=== PATIENT | male | born 1960 | race Caucasian/White ===

== ENCOUNTER → 2017-12-06 15:09 | Outpatient (CLI) | payer MEDICARE, MEDICAID, SELFPAY ==
--- NOTE | 2017-12-06 15:25 | MRI_ITS ---
MRA Head W/O Contrast INDICATION: DIZZINESSfalls,rt sided paulson's, blurred vision x 6 months COMPARISON: None TECHNIQUE: MR angiogram of the [place] of [place] and 3-D [id number] technique with 3-D reformatted images. FINDINGS: There is symmetric flow related signal and intracranial portions of the internal carotid arteries with symmetric supply to the anterior and middle cerebral arteries. Posterior circulation demonstrates normal confluence of the distal vertebral arteries to the basilar artery, basilar artery demonstrates normal flow related signal. Basilar artery gives rise to the left posterior cerebral artery, the right posterior cerebral artery is in origin. MRI/MRA Head ONLY without Contrast IMPRESSION: No evidence off aneurysm formation or large vessel occlusion. origin of the right posterior cerebral artery normal variation. at 1710 Reported and signed by: Reyna Champagne MD Electronically Signed: Reyna Champagne MD at 16:08 EDT Tel , Service support ,
--- NOTE | 2017-12-06 15:25 | MRI_ITS ---
MR Brain WO/W Contrast INDICATION: DIZZINESS, H/O TBI, RT SIDED HEAD THROBBING,falls,rt sided paulson's, blurred vision x 6 months COMPARISON: None TECHNIQUE: Multiplanar multisequence MRI examination of the brain without and with IV contrast. 10 mL of gadolinium Vistaril given intravenously.. FINDINGS: There is no evidence of restricted diffusion to suggest acute ischemia/infarction. Ventricular system is normal in size and symmetric. Cortical sulci, sylvian fissures, and basal cisterns are well seen. Andino-white matter junction is normal. Midline structures and craniocervical junction are normal. The cerebellopontine angles are normal and symmetric. There are minimal bifrontal periventricular T-2/cystic hyperintensities, compatible with minimal chronic ischemic microvascular white matter changes. Supra-and infratentorial brain parenchyma demonstrates otherwise normal signal. There is no evidence of parenchymal microhemorrhage, mass effect or midline shift, or abnormal extra-axial collection. After contrast administration, there is no abnormal parenchymal or extra-axial enhancement identified. Flow-voids of the [place] of [place] vascularity are well seen. The paranasal sinuses and mastooid air cells are clear. MRI/Brain W/WO Contrast IMPRESSION: Very minimal periventricular chronic ischemic microvascular white matter changes. Otherwise unremarkable MRI examination of the brain. at 0050 Reported and signed by: Reyna Champagne MD Electronically Signed: Reyna Champagne MD at 23:49 EDT Tel , Service support ,
== END ==
PROVIDERS: Family Provider Family Medicine; PCP Family Medicine; Visit Provider Psychiatry & Neurology Neurology
DX: R42 Dizziness and giddiness (principal); R29.6 Repeated falls
CPT/HCPCS: 70544; 70553; A9585

== ENCOUNTER → 2018-03-08 11:58 | Outpatient (CLI) | payer MEDICARE, MEDICAID, SELFPAY ==
[2018-03-08 12:42] LABS: Absolute Lymphocyte Count 1.07 X10^3/ul (0.83-4.51); Absolute Neutrophil Count 3.3 X10^3/uL (2.0-7.7); Basophil# 0.03 X10^3/uL; Basophil% 0.6 % (0-1); Eosinophil# 0.12 X10^3/uL; Eosinophils% 2.5 % (0-5); Hematocrit 44.3 % (40-54); Hemoglobin 14.3 g/dl (13.0-16.5); Lymphocyte # 1.07 X10^3/ul (4.0); Mean Corp Hgb Conc 32.3 g/gl (32-36); Mean Corpuscular Hgb 29.6 pg (27.0-32.0); Mean Corpuscular Volume 91.7 fL (80-94); Mean Platelet Vol. 10.3 fl (6.2-12.0); Monocyte# 0.34 X10^3/uL; Neutrophil # 3.29 X10^3/uL (2.7-7.7); Neutrophil % 67.7 % (47-70); Platelet Count 215 K/mm3 (150-450); RBC Distribution Width CV 14.1 % (11.6-14.6); RBC Distribution Width SD 47.5 fl (35.1-43.9); Red Blood Count 4.83 M/mm3 (4.6-6.2); White Blood Count 4.9 K/mm3 (4.4-11.0)
[2018-03-08 12:48] LABS: POSITIVE COUNT NO; POSITIVE DIFFERENTIAL NO; POSITIVE MORPHOLOGY NO
[2018-03-08 13:12] LABS: BUN 14 mg/dL (7-18); Creatinine, Serum 0.94 mg/dL (0.70-1.30); Glucose 87 mg/dL (74-106)
[2018-03-08 13:13] LABS: ALB/GLOB Ratio 1.1 RATIO (0.9-2.4); AST(SGOT) 17 U/L (15-37); Alanine Aminotransfer ALT/SGPT 20 U/L (16-61); Albumin, Serum 3.9 g/dL (3.2-5.0); Alkaline Phosphatase 125 U/L (45-117); Anion Gap 7 (5-15); BUN/Creat Ratio 14.9 RATIO (10-20); Calcium,Total 8.9 mg/dL (8.5-10.1); Chloride 107 mmol/L (98-107); EST Glomerular Filtration Rate 88 mL/min (>60); Est Glom Filt Rate - Afr Amer 106 mL/min (>60); Globulin 3.7 g/dL (2.2-4.2); PSA,Total - Annual Screen 0.09 ng/mL (0.00-4.00); Potassium 4.6 mmol/L (3.5-5.1); Protein, Total 7.6 g/dL (6.4-8.2); Sodium Level 138 mmol/L (136-145); Thyroid Stim Hormone (TSH) 1.84 uIU/mL (0.358-3.74)
[2018-03-09 11:20] LABS: Hep C Antibodies <0.1 s/co ratio (0.0-0.9)
== END ==
PROVIDERS: Visit Provider Family Medicine Geriatric Medicine
DX: Z12.5 Encounter for screening for malignant neoplasm of prostate (principal); Z13.89 Encounter for screening for other disorder; R53.83 Other fatigue
CPT/HCPCS: 36415; 80053; 84153; 84443; 85025; 86803; G0103

== ENCOUNTER → 2018-03-08 17:20 | Outpatient (CLI) | payer MEDICARE, MEDICAID, SELFPAY ==
--- NOTE | 2018-03-08 15:00 | CYSPIN_PTH ---
PATIENT: ELOINA TOVAR LOC: [facility] U#:[id number] AGE/SX: 65/M ROOM: RE03/08/[address]: AFVIAN Benjamin : 1960 BED: DIS: SPEC #: [id number] RECD: 03/09/18 08:39 STATUS: GIOVANNI NUHA #: [id number] TAQUERIA: 03/08/18 15:[address]: Bonnie Sheldon NP DEPT: CYTOLOGY RECD BY: Dionisio Duarte Tissues: Urine Procedures: Pap Stain (control) Special Stain Group II Cytospin Fluid HEADER OPERATION: Not noted PRE-OP DIAGNOSIS: Hematuria TISSUE SUBMITTED: Urine for cytology DIAGNOSIS CYTOLOGY Urine for cytology (cytospin): Negative for malignant cells. AM:jennifer 03/12/18 CYTOLOGY STUDY Slides are reviewed. CYTOLOGY GROSS Received is 75 ml of cloudy marlon fluid labeled with the patient's name and and designated per the requisition as urine. Submitted for cytology preparation. / JULITO:jennifer 03/09/18 TC:5 CPT: 50277
[2018-03-08 17:23] LABS: Cytology, Body Fluid / CSF SEE PATHOLOGY REPORT
== END ==
PROVIDERS: Visit Provider Nurse Practitioner Adult Health
DX: R31.9 Hematuria, unspecified (principal); Z12.5 Encounter for screening for malignant neoplasm of prostate; Z13.89 Encounter for screening for other disorder; R53.83 Other fatigue
CPT/HCPCS: 36415; 80053; 84153; 84443; 85025; 86803; 87086; 87088; 88108; 88313; G0103

== ENCOUNTER → 2018-03-12 10:07 | Outpatient (CLI) | payer MEDICARE, MEDICAID, SELFPAY ==
--- NOTE | 2018-03-12 10:11 | US_ITS ---
STUDY: RENAL ULTRASOUND - COMPLETE REASON FOR EXAM: Male, 57 years old. Urinary retention. TECHNIQUE: Ultrasound evaluation of the kidneys was performed with real-time and static hay-scale imaging. COMPARISON: Abdominal ultrasound, September 28, 2015. FINDINGS: RIGHT KIDNEY: Normal location of the right kidney, which is normal in size. The right kidney measures 10.9 cm. There is a normal cortex of the right kidney. The renal cortex measures 1.9 cm. There is a 4.2 x 3.1 x 3.5 cm upper pole simple cyst. There are no right renal calculi. There is no right hydronephrosis. DISTAL RIGHT URETER: There is non-visualization of the distal right ureter. There is no demonstrated right ureterovesical junction calculus. There is a visualized right ureteral jet. LEFT KIDNEY: Normal location of the left kidney, which is normal in size. The left kidney measures 10.8 cm. There is a normal cortex of the left kidney. The renal cortex measures 1.4 cm. There is a 1.1 x 1.1 x 0.9 cm exophytic cyst off the lower pole. There are no left renal calculi. There is no left hydronephrosis. DISTAL LEFT URETER: There is non-visualization of the distal left ureter. There is no demonstrated left ureterovesical junction calculus. There is a visualized left ureteral jet. AORTA: There is no elongation or tortuosity of the abdominal aorta. Aorta measures: Proximal cm. Middle cm. Distal cm. Aorta measure transversely: Proximal cm. Middle cm. Distal cm. There is no demonstrated aneurysm.. I.V.C.: The IVC is patent. BLADDER: The incompletely distended urinary bladder has a volume of 76 ml. The empty urinary bladder has a volume of 13 ml. There is a normal wall thickness of the distended urinary bladder. There is no demonstrated mass within the urinary bladder. There are no demonstrated bladder calculi. US/Kidney and Bladder IMPRESSION: [place] numbering is stable bilateral renal cysts without other evidence of renal or urinary bladder abnormality. Electronically Signed: Gerber Camp DO at 15:53 EDT Tel [phone], Service support ,
== END ==
PROVIDERS: Visit Provider Nurse Practitioner Adult Health
DX: R33.9 Retention of urine, unspecified (principal)
CPT/HCPCS: 76770

== ENCOUNTER → 2018-03-13 11:08 | Outpatient (CLI) | payer MEDICARE, MEDICAID, SELFPAY ==
--- NOTE | 2018-03-13 09:40 | LES_PTH ---
PATIENT: ELOINA TOVAR LOC: [facility] U#:[id number] AGE/SX: 65/M ROOM: RE03/13/[address]: Dr. Balwinder Pruitt MD : 1960 BED: DIS: SPEC #: [id number] RECD: 03/13/18 16:11 STATUS: GIOVANNI NUHA #: [id number] TAQUERIA: 03/13/18 09:[address]: Balwinder Pruitt Chi DEPT: SURGICAL PATHOLOGY RECD BY: Patrick Anthony Tissues: A - Skin of upper extremity and shoulder B - Skin of back, NOS Procedures: Surgery Specimen Level IV HEADER OPERATION: Biopsy PRE-OP DIAGNOSIS: Skin lesion, skin changes TISSUE SUBMITTED: A. Right shoulder, B. Right lower back MICROSCOPIC DIAGNOSIS A. Skin lesion of right shoulder, shave biopsy: Seborrheic keratosis, mildly inflamed. B. Skin lesion of right lower back, shave biopsy: Seborrheic keratosis, inflamed. AM:lizzy 03/15/18 MICROSCOPIC DESCRIPTION Slides are reviewed. GROSS DESCRIPTION A. Received in fixative is one container labeled with the patient's name and designated not further designated. The specimen consists of a piece of beverly-white skin measuring 1.4 x 0.6 x 0.1 cm. The skin surface shows a raised beverly-brown lesion measuring 1 x 0.5 cm. The specimen is inked and submitted entirely in 1 cassette. It will be serially sectioned at the time of embedding. B. Received in fixative is one container labeled with the patient's name and designated not further designated. The specimen consists of an irregular piece of beverly-white skin measuring 1.5 x 1 x 0.2 cm. The skin surface shows a brown lesion measuring 1.2 x 1 cm. The specimen is inked and submitted in 1 cassette. It will be serially sectioned at the time of embedding. JULITO:lizzy 03/14/18 TC:5 CPT: 66776 x2
== END ==
PROVIDERS: Visit Provider Family Medicine Geriatric Medicine
DX: L98.9 Disorder of the skin and subcutaneous tissue, unspecified (principal)
CPT/HCPCS: 88305

== ENCOUNTER → 2018-03-15 16:09 | Outpatient (CLI) | payer MEDICARE, SELFPAY ==
[2018-03-15 16:17] LABS: Bacteria 0 SEEN /hpf (None Seen)
[2018-03-15 17:21] LABS: Color, Urine Yellow (Yellow); Glucose, Dipstick Normal (Normal); Ketone-Dipstick 5 mg/dl (Negative); Leukocyte Esterase-Dipstick 25 /ul (Negative); Nitrite-Dipstick Negative (Negative); Occult Blood-Urine 50 /ul (Negative); Protein-Dipstick 15 mg/dl (Negative); Urine Bilirubin Dipstick Negative (Negative); Urine Clarity Clear (Clear); Urine Urobilinogen 4 mg/dl (Normal)
[2018-03-15 17:48] LABS: Red Blood Cells-Urine 5-10 SEEN /hpf (0-5); White Blood Cells 0-5 SEEN /hpf (0-5)
[2018-03-15 17:49] LABS: Mucous, Urine 1+ /hpf (<or=2+); Squamous Epithelial Cells - UA 0-5 SEEN /hpf (0-5)
== END ==
PROVIDERS: Family Provider Family Medicine Geriatric Medicine; PCP Family Medicine Geriatric Medicine; Visit Provider Nurse Practitioner Adult Health
DX: R31.9 Hematuria, unspecified (principal); Z12.5 Encounter for screening for malignant neoplasm of prostate
CPT/HCPCS: 81001

== ENCOUNTER → 2018-04-12 18:55 | Outpatient (CLI) | payer MEDICARE, MEDICAID, SELFPAY ==
--- NOTE | 2018-04-12 | FLU_PTH ---
PATIENT: ELOINA TOVAR LOC: [facility] U#:[id number] AGE/SX: 65/M ROOM: RE04/12/[address]: Dr. Eusebio Gonzales MD : 1960 BED: DIS: SPEC #: [id number] RECD: 04/12/18 16:00 STATUS: GIOVANNI NUHA #: [id number] TAQUERIA: 04/12/18 00:[address]: Eusebio Gonzales DEPT: CYTOLOGY RECD BY: Pamela Santos ENTERED: 04/13/18 08:34 SP TYPE: Fluid OTHR DR: Dr. Balwinder Pruitt MD Tissues: Urine Procedures: Pap Stain (control) Special Stain Group II Surgery Specimen Level IV Cytospin Fluid HEADER OPERATION: Not noted PRE-OP DIAGNOSIS: Hematuria TISSUE SUBMITTED: Urine for cytology DIAGNOSIS CYTOLOGY Urine for cytology (cytospin): Negative for malignant cells. JULITO:jennifer 04/16/18 CYTOLOGY STUDY Slides are reviewed. The specimen consists of benign squamous cells, urothelial cells, inflammatory cells, red blood cells and crystals. CYTOLOGY GROSS Received is 40 ml of clear marlon fluid labeled with the patient's name and and designated per the requisition as urine. Submitted for cytology preparation. / MORENA:logan 04/13/18 TC:5 CPT: 13841
[2018-04-12 18:57] LABS: Cytology, Body Fluid / CSF SEE PATHOLOGY REPORT
== END ==
PROVIDERS: Visit Provider Urology
DX: R31.9 Hematuria, unspecified (principal)
CPT/HCPCS: 88108; 88305; 88313

== ENCOUNTER → 2018-06-11 11:19 | Outpatient (CLI) | payer MEDICARE, SELFPAY ==
[2018-06-11 12:17] LABS: Absolute Lymphocyte Count 0.87 X10^3/ul (0.83-4.51); Absolute Neutrophil Count 3.2 X10^3/uL (2.0-7.7); Basophil# 0.06 X10^3/uL; Basophil% 1.3 % (0-1); Differential Indicated SCAN CRITERIA MET; Eosinophils% 2.1 % (0-5); Hematocrit 43.6 % (40-54); Hemoglobin 14.2 g/dl (13.0-16.5); Lymphocyte # 0.87 X10^3/ul (4.0); Lymphocyte % 18.6 % (19-41); Mean Corp Hgb Conc 32.6 g/gl (32-36); Mean Corpuscular Hgb 30.5 pg (27.0-32.0); Mean Corpuscular Volume 93.6 fL (80-94); Mean Platelet Vol. 10.4 fl (6.2-12.0); Monocyte# 0.41 X10^3/uL; Monocyte% 8.8 % (0-10); Neutrophil # 3.24 X10^3/uL (2.7-7.7); Neutrophil % 69.2 % (47-70); POSITIVE COUNT NO; POSITIVE DIFFERENTIAL NO; POSITIVE MORPHOLOGY YES; Platelet Count 221 K/mm3 (150-450); RBC Distribution Width CV 14.2 % (11.6-14.6); RBC Distribution Width SD 47.5 fl (35.1-43.9); Red Blood Count 4.66 M/mm3 (4.6-6.2); White Blood Count 4.7 K/mm3 (4.4-11.0)
[2018-06-11 12:51] LABS: AST(SGOT) 22 U/L (15-37); Alanine Aminotransfer ALT/SGPT 21 U/L (16-61); Albumin, Serum 3.6 g/dL (3.2-5.0); Alkaline Phosphatase 117 U/L (45-117); Anion Gap 7 (5-15); BUN 13 mg/dL (7-18); Calcium,Total 8.8 mg/dL (8.5-10.1); Chloride 105 mmol/L (98-107); Creatinine, Serum 0.86 mg/dL (0.70-1.30); EST Glomerular Filtration Rate 96 mL/min (>60); Est Glom Filt Rate - Afr Amer 116 mL/min (>60); Globulin 3.7 g/dL (2.2-4.2); Glucose 81 mg/dL (74-106); Potassium 4.3 mmol/L (3.5-5.1); Protein, Total 7.3 g/dL (6.4-8.2); Sodium Level 141 mmol/L (136-145)
[2018-06-13 09:11] LABS: Trileptal-Oxcarbazepine 7 ug/mL (10-35)
== END ==
PROVIDERS: Family Provider Family Medicine Geriatric Medicine; PCP Family Medicine Geriatric Medicine; Visit Provider Psychiatry & Neurology Neurology
DX: Z79.899 Other long term (current) drug therapy (principal)
CPT/HCPCS: 36415; 80053; 82542; 85025

== ENCOUNTER 2019-03-07 16:01 | Emergency (ER) | payer MEDICARE, MEDICAID, SELFPAY ==
[2019-03-07 16:02] VITALS: BP 138/73; PULSE 58; RESP 18; TEMP 37.1; O2SAT 99; BMI 39.6
--- NOTE | 2019-03-07 16:20 | ED.VISSUMM ---
- ER Visit Summary Date of Service: 03/07/19 Chief Complaint: Dog bite History of Present Illness: The patient is a [address] Pruitt. He reports just prior to coming emergency department he was breaking up a fight between his dog and another of the family dogs. He was bit to the right forearm. States the dog's immunizations are up-to-date. His tetanus is up-to-date. He is left-hand dominant. Patient combines of an aching pain is 7-10 with movement and 3 out of 10 at rest. He denies any paresthesias distally. He denies any other injuries. Review of systems is negative. Physical Examination: Vitals: Stable. Afebrile. General: Well-nourished and well-developed. Head: Normocephalic atraumatic. Neck: Supple, no lymphadenopathy. No JVD. Nontender. Cardiovascular: Regular rate and rhythm. No murmurs. Respiratory: No respiratory distress. Clear to auscultation bilaterally. Abdominal: Soft, nontender, nondistended, normal bowel sounds. No guarding, rebound, or peritoneal signs. Back: Nontender. Extremities: 1 cm laceration on both the volar and dorsal surface of his distal forearm with mild surrounding soft tissue swelling. There are also multiple puncture wounds. There is no active bleeding. He is neurovascularly intact distally. Skin: Normal color, no rash. Neurologic: Alert and oriented ?3. Cranial nerves II through XII are intact. Normal strength and sensation. Psych: Normal affect. Test Results: Clinical Impression(s) from Imaging Studies Forearm X-Ray 03/07/19 16:25 IMPRESSION: Local cortical puncture of the distal radius consistent with dog bite. No foreign body demonstrated. Electronically Signed: Janene Perez MD at 16:55 EDT Tel , Service support , Emergency Department Courseand Treatment: Patient is penicillin allergic. He was given doxycycline and [place] p.o. He had his wound cleansed and a dressing was placed. He was placed in a volar splint. Treatment Plan: Patient will be discharged on doxycycline. Instructed use Tylenol and/or ibuprofen for pain. Follow-up with Dr. Belle in 2 days for a wound check. Return to the emergency department for any worsening symptoms. Disposition: To home in improved and stable condition. Impression: 1. Dog bite right forearm with bony involvement. 2. Volar splint, fabricated. This note was generated with [employer] dictation software. It may contain incorrect words, spelling, and punctuation that were not noted in review of the chart prior to signing ED Disposition - Plan for ED Patient: Instructions: Dog Bite Prescriptions: Doxycycline 100 mg PO BID #20 capsule Hydrocodone Bitart/Apap 5-325 [[place] 5MG-325MG] 1 tablet PO Q4H PRN PRN 2 Days #10 tablet PRN Reason: Pain Referrals: Nimesh Belle DO [STAFF PHYSICIAN] - 2 Days for wound check
--- NOTE | 2019-03-07 16:22 | ED.RN ---
pt refusing to fill out [facility] bite report sheet.
--- NOTE | 2019-03-07 16:25 | RAD_ITS ---
STUDY: X-RAY - RIGHT RADIUS AND ULNA REASON FOR EXAM: Male, 58 years old. Dog bite to right wrist/forearm. TECHNIQUE: 2 view(s) of the forearm. COMPARISON: None. FINDINGS: There is a 9 x 6 mm depressed cortical fracture consistent with puncture identified in the distal radial shaft anteromedially. There is no complete fracture through the radius. Remaining bony structures are unremarkable. There is moderate soft tissue swelling about the distal forearm. There is trace soft tissue gas in the deep soft tissues proximal to the puncture site. There is no evidence of foreign body consistent with tooth. RAD/Forearm 2 Views IMPRESSION: Local cortical puncture of the distal radius consistent with dog bite. No foreign body demonstrated. Electronically Signed: Janene Perez MD at 16:55 EDT Tel , Service support ,
[2019-03-07] MEDS: HYDROcodone Bitartrate/Apap 5/325 Tablet PO (16:34)
[2019-03-07] MEDS: Doxycycline 100 MG CAPSULE PO (16:34)
[2019-03-07 18:18] VITALS: BP 120/89; PULSE 76; RESP 18; TEMP 33.8
== END 2019-03-07 18:21 | disposition home or self-care (01) ==
PROVIDERS: Emergency Provider Emergency Medicine; Family Provider Family Medicine Geriatric Medicine; PCP Family Medicine Geriatric Medicine
DX: S51.851A Open bite of right forearm, initial encounter (principal); W54.0XXA Bitten by dog, initial encounter; Y93.89 Activity, other specified; Y92.9 Unspecified place or not applicable; J44.9 Chronic obstructive pulmonary disease, unspecified; G40.909 Epilepsy, unspecified, not intractable, without status epilepticus; Z79.899 Other long term (current) drug therapy
CPT/HCPCS: 29125; 73090; 99283

== ENCOUNTER → 2019-03-18 11:08 | Outpatient (CLI) | payer MEDICARE, MEDICAID, SELFPAY ==
[2019-03-07 16:02] VITALS: BMI 39.6
--- NOTE | 2019-03-18 11:11 | RAD_ITS ---
STUDY: X-RAY - UNILATERAL RIBS ( RIGHT ) WITH CHEST REASON FOR EXAM: Male, 58 years old. Fall. Right anterior lower rib pain wraps around side. TECHNIQUE - RIBS: 3 view(s) of the ribs. TECHNIQUE - CHEST: Single PA view. COMPARISON: AP portable chest 11/24/2015. No prior rib series for comparison. FINDINGS - RIBS: Acute fracture of the right anterior sixth rib. FINDINGS - CHEST: Radiopaque linear densities in the left upper quadrant of the abdomen may be embolic material from prior endovascular procedure. This was present previously and unchanged. Mild pulmonary hypoinflation. The lungs are clear. There is no demonstrated pleural abnormality. Normal size heart. Normal mediastinum and leisa. Normal visualized pulmonary arteries. Normal visualized aortic arch and descending thoracic aorta. Normal visualized thoracic spine. Acute fracture of the right anterior sixth is not obvious. The clavicles and shoulders are within normal limits. There is no demonstrated abnormality of the visualized soft tissue structures of the upper abdomen. RAD/Ribs Uni Min 3V w/PA Chest IMPRESSION: RIBS: Acute fracture of the right anterior sixth rib. CHEST: No acute cardiopulmonary pathology and unchanged since 11/24/2015. Electronically Signed: Kash Griffith MD at 13:10 EDT , Service support ,
== END ==
LOC: RAD 11:10
PROVIDERS: Family Provider Family Medicine Geriatric Medicine; PCP Family Medicine Geriatric Medicine; Referring Provider Family Medicine Geriatric Medicine; Visit Provider Family Medicine Geriatric Medicine
DX: S22.31XA Fracture of one rib, right side, initial encounter for closed fracture (principal); X58.XXXA Exposure to other specified factors, initial encounter
CPT/HCPCS: 71101

== ENCOUNTER 2019-04-02 14:29 | Inpatient (IN) | payer MEDICARE, MEDICAID, SELFPAY ==
[2019-04-02] VITALS (8 sets, daily range): BP systolic 129–171; BP diastolic 79–105; PULSE 49–64; RESP 14–18; TEMP 36.3–36.7; O2SAT 94–97; BMI 40.6; BMI 40.4; BMI 39.4; BMI 39.5
--- NOTE | 2019-04-02 15:44 | ED.DCSUM_ITS ---
History of Present Illness Chief Complaint: Wound Detail of Chief Complaint: Right leg wound Informant: Patient Onset: - - 2 weeks Context: Gradual Onset Current Severity: Moderate Maximum Severity: Moderate Narrative: Patient was seen in the ED on March 07 with a dog bite to the right forearm. Patient reports that 5 or 6 days later his dog bit him in the back of the right lower leg when he was trying to separate 2 dogs were fighting. Patient was seen by his PCP the following day and placed on Augmentin. He has an allergy to penicillin and broke out in a rash. He was then switched to clindamycin and doxycycline. He finished a 10-day course of antibiotics 2 days ago. Patient was sent to the wound center today. He was told that the wound is infected and he needs to be admitted for IV antibiotics and surgery. - Past Medical History (1) Bronchial asthma Status: Chronic (2) Chronic pain syndrome Status: Chronic (3) DM type 2 (diabetes mellitus, type 2) Status: Chronic (4) Epilepsy undetermined as to focal or generalized, intractable Status: Chronic Comment: sees Dr. Guillen (5) Migraine headache Status: Chronic (6) Personal hx-rectal/anal malignancy Status: Chronic Past Medical History - Allergies and Home Meds Allergies/Adverse Reactions: Allergies meperidine HCl [From Demerol] Allergy (Verified 04/02/19 14:35) Unknown Milk Containing Products Allergy (Verified 04/02/19 14:35) Anaphylaxis PER PT penicillin G Allergy (Verified 04/02/19 14:35) Hives potassium Adverse Reaction (Verified 04/02/19 14:35) Other Prior records reviewed: Yes Past Medical History: - - Reviewed Surgical History: noncontributory, - - Bariatric surgery Smoking Status: Current every day smoker - Family History Maternal Family History: Reports: No pertinent history Paternal Family History: Reports: No pertinent history Review of Systems General: Denies: Chills, Fever Cardiovascular: Denies: Chest pain, Palpitations Respiratory: Denies: Dyspnea, Cough Gastrointestinal: Denies: Abdominal pain, Nausea, Vomiting Musculoskeletal: Reports: Myalgias Skin: Reports: Wounds Physical Exam Vital Signs/Narrative: Vital Signs Temp Pulse Resp BP Pulse Ox 04/02/19 14:30 97.9 F 64 15 154/99 H 95 Extremities: - - Patient has a 3 x 3 cm ulcerated wound to the medial proximal right calf. There is a 9 x 9 cm area of induration around the wound. There is foul smell and slight discharge noted from the central wound. Diagnostic/Tx/Re-eval 04/02/19 16:14 Tibia & Fibula 2 Views [RAD] Stat Laboratory Results 04/02/19 04/02/19 16:00 16:00 WBC 6.4 RBC 4.43 L Hgb 13.7 Hct 41.9 MCV 94.6 H MCH 30.9 MCHC 32.7 RDW Std Deviation 49.6 H RDW Coeff of [place] 14.4 Plt Count 226 MPV 10.3 Immature Gran % (Auto) 0.300 Neut % (Auto) 70.0 Lymph % (Auto) 17.4 L [place] % (Auto) 9.3 Eos % (Auto) 2.2 Baso % (Auto) 0.8 Absolute Neuts (auto) 4.5 Absolute Lymphs (auto) 1.12 Absolute Nucleated RBC 0.00 Nucleated RBC % 0 Sodium 139 Potassium 4.6 Chloride 109 H Carbon Dioxide 28.0 Anion Gap 2 L BUN 14 Creatinine 0.86 Estim Creat Clear Calc 88.37 Est GFR (MDRD) Af Amer 117 Est GFR (MDRD) Non-Af 97 BUN/Creatinine Ratio 16.3 Glucose 84 Calcium 8.7 - Medical Decision Making Patient was given IV vancomycin. Leg x-ray per my review shows superficial injury with no deep tissue air. Wound and blood cultures were sent. I spoke with Dr. Reardon who will be able to see the patient in consult. I will speak with hospitalist regarding admission. ED Disposition - Plan for ED Patient: Disposition: Acute Care Hospital [facility] Diagnosis: Traumatic open wound of right lower leg with infection
[2019-04-02] MEDS: 0.9% Normal Saline 1,000 ML 150 ML IV (16:09)
[2019-04-02 16:43] LABS: Anion Gap 2 (5-15); BUN 14 mg/dL (7-18); BUN/Creat Ratio 16.3 RATIO (10-20); Calcium,Total 8.7 mg/dL (8.5-10.1); Chloride 109 mmol/L (98-107); Creatinine, Serum 0.86 mg/dL (0.70-1.30); EST Glomerular Filtration Rate 97 mL/min (>60); Est Glom Filt Rate - Afr Amer 117 mL/min (>60); Estimated Creatinine Clearance 88.37 ml/min; Glucose 84 mg/dL (74-106); Potassium 4.6 mmol/L (3.5-5.1); Sodium Level 139 mmol/L (136-145)
[2019-04-02 16:52] LABS: Absolute Lymphocyte Count 1.12 X10^3/uL (0.83-4.51); Absolute Neutrophil Count 4.5 X10^3/uL (2.0-7.7); Basophil# 0.05 X10^3/uL; Basophil% 0.8 % (0-1); Eosinophil# 0.14 X10^3/uL; Eosinophils% 2.2 % (0-5); Hematocrit 41.9 % (40-54); Hemoglobin 13.7 g/dL (13.0-16.5); Lymphocyte # 1.12 X10^3/ul (4.0); Lymphocyte % 17.4 % (19-41); Mean Corp Hgb Conc 32.7 g/dL (32-36); Mean Corpuscular Hgb 30.9 pg (27.0-32.0); Mean Corpuscular Volume 94.6 fL (80-94); Mean Platelet Vol. 10.3 fl (6.2-12.0); Monocyte% 9.3 % (0-10); NRBC Flagged by Analyzer 0 % (0-5); Neutrophil # 4.49 X10^3/uL (2.7-7.7); Platelet Count 226 K/mm3 (150-450); RBC Distribution Width CV 14.4 % (11.6-14.6); RBC Distribution Width SD 49.6 fl (35.1-43.9); Red Blood Count 4.43 M/mm3 (4.6-6.2); White Blood Count 6.4 K/mm3 (4.4-11.0)
--- NOTE | 2019-04-02 17:00 | RAD_ITS ---
STUDY: X-RAY - RIGHT TIBIA AND FIBULA REASON FOR EXAM: Male, 59 years old. Dog bite. TECHNIQUE: Frontal and lateral view(s) of the tibia and fibula were obtained. COMPARISON: None. FINDINGS: Normal visualized tibia. Normal visualized fibula. There is no demonstrated acute fracture. There is posterior medial soft tissue injury. RAD/Tibia & Fibula 2 Views IMPRESSION: Soft tissue injury. No fracture. No radiopaque foreign body Electronically Signed: Vic Lnae MD at 17:33 EDT , Service support ,
--- NOTE | 2019-04-02 17:14 | HP.PCM_ITS ---
History of Present Illness Date of Admission: 04/02/19 Chief Complaint: redness and pain in RLE due to dog bite The patient is a 59 year old M with an extensive past medical history as listed. He was admitted through the ED on 04/02/2019 with a complaint of a dog bite and ulceration on his right lower extremity. Patient is about 2 weeks ago his dog bit him at the back of his right lower leg as he was trying to separate 2 dogs fighting. Once he is PCP and was put on Augmentin. However due to allergy to p enicillin, he broke out in a rash and this was discontinued. He was subsequently placed on clindamycin and doxycycline and finished a 10-day course of antibiotics 2 days ago. However he noticed that the ulceration was getting worse and was smelling very effectively went to the wound care center today and was told that he needed possible debridement and IV antibiotics and so was sent to the ED. Patient denies any fever or chills but admits to generally not feeling well for the past few days. He denies any cough or chest pain, palpitations, dizziness, abdominal pain, diarrhea vomiting. Review of systems otherwise negative. Vitals in the ED with stable and chemistry was essentially unremarkable. CBC showed no leukocytosis. He has been admitted to be managed for cellulitis of the left lower extremity, failed outpatient therapy. [] Past Medical History Past Medical History (Chronic Problems): Chronic Problems Personal hx-rectal/anal malignancy (Chronic) Esophageal reflux (Chronic) Epilepsy undetermined as to focal or generalized, intractable (Chronic) sees Dr. Guillen DM type 2 (diabetes mellitus, type 2) (Chronic) Chronic pain syndrome (Chronic) Post traumatic stress disorder (PTSD) (Chronic) multiple abdominal surgeries (Chronic) Migraine headache (Chronic) Bronchial asthma (Chronic) Bariatric surgery status (Chronic) Allergies meperidine HCl [From Demerol] Allergy (Verified 04/02/19 14:35) Unknown Milk Containing Products Allergy (Verified 04/02/19 14:35) Anaphylaxis PER PT penicillin G Allergy (Verified 04/02/19 14:35) Hives potassium Adverse Reaction (Verified 04/02/19 14:35) Other Home Medications: Ambulatory Orders Medication Instructions Recorded Budesonide Inhaler 180 mcg 2 puff INHALATION BID 02/14/15 [Pulmicort Inhaler 180 mcg] Salmeterol [Serevent Diskus] 2 puff INHALATION DAILY 02/14/15 Albuterol IH (ProAir) [Proair Hfa 1 - 2 puff INHALATION Q4H PRN PRN 04/02/19 (SP)Vent Pts] Escitalopram Oxalate [Lexapro] 20 mg PO DAILY 04/02/19 Oxcarbazepine 300 mg PO BID 04/02/19 Oxcarbazepine [Trileptal] 150 mg PO BID 04/02/19 Surgical History: noncontributory, - - Bariatric surgery Psychiatric History: No pertinent psych hx Lives: With Family Smoking Status: Never smoker Tobacco Use: Non-smoker Alcohol: None - quit drinking in 1999 - *Family History Maternal History Items: No pertinent history Paternal History Items: No pertinent history Review of Systems Constitutional: Reports: Malaise. Denies: Chills, Fever, Weight Change Eyes: Denies: Blurred vision HEENT: Denies: Head Aches, Sinus Congestion, Sinus Drainage Cardiovascular: Denies: Chest Pain, Chest Pressure, Heaviness, Light Headedness, Orthopnea, Palpitations Respiratory: Denies: Cough, Shortness of breath at rest, Sputum production Gastrointestinal: Denies: Abdominal Pain, Nausea, Vomiting Genitourinary: Denies: Dysuria Musculoskeletal: Reports: Leg Pain - right leg Skin: Reports: Rash, Wounds - right leg wound. Neurological: Denies: Numbness, Tingling, Focal weakness Psychiatric: Denies: Anxiety, Depression, Homicidal Ideations, Suicidal Ideations Hematologic/ Lymphatic: Denies: Easy Bruising, Easy Bleeding VTE Information - Inpt Only VTE Present on Admission: No VTE Pharm Prophylaxis ordered?: Yes Patient Problems: Active and Suspected Problems Traumatic open wound of right lower leg with infection (Acute) Dog bite of calf (Acute) - Physical Exam General: Alert, Oriented x3, Cooperative, No apparent distress HEENT: Atraumatic, PERRLA, EOMI, Normocephalic Oral: Moist Mucosa Neck: Supple, No JVD, Negative Carotid Bruits Lungs: Clear to auscultation, Normal air movement Cardiovascular: Regular rate, No murmurs Abdomen: Bowel Sounds Present, Soft, Non Tender Extremities: No clubbing, No cyanosis, No edema, Capillary Refill Less than 3 Seconds Skin: - - mild papular rash over UEs, which is resolving-due to penicillin allergy Musculoskeletal: - - RLE mildly swollen, tende, has ~ 4x5cm ulceration, with greenish slough in the floor, and surrounding erythema and tenderness Lymphatic: No Cervical, Supraclavicular, or Inguinal Adenopathy Neurological: Cranial nerves II-XII grossly intact, Neuro grossly intact, Motor Exam 5/5 strength throughout Psych/Mental Status: Normal Affect, Appropriate, Alert and oriented to time, place, person, mood and affect Vital Signs Temp Pulse Resp BP Pulse Ox 97.4 F L 59 L 18 140/94 H 97 04/02/19 17:02 04/02/19 17:02 04/02/19 17:02 04/02/19 17:02 04/02/19 17:02 Oxygen Delivery Method Room Air Weight: 265 lb 14.04 oz Body Mass Index (BMI) 40.4 Finger Stick Blood Glucose 77 Laboratory Tests Past 24 Hrs 04/02/19 04/02/19 16:00 16:00 WBC 6.4 RBC 4.43 L Hgb 13.7 Hct 41.9 MCV 94.6 H MCH 30.9 MCHC 32.7 RDW Std Deviation 49.6 H RDW Coeff of Wenceslao 14.4 Plt Count 226 MPV 10.3 Immature Gran % (Auto) 0.300 Neut % (Auto) 70.0 Lymph % (Auto) 17.[address] [place] % (Auto) 9.3 Eos % (Auto) 2.2 Baso % (Auto) 0.8 Absolute Neuts (auto) 4.5 Absolute Lymphs (auto) 1.12 Absolute Nucleated RBC 0.00 Nucleated RBC % 0 Sodium 139 Potassium 4.6 Chloride 109 H Carbon Dioxide 28.0 Anion Gap 2 L BUN 14 Creatinine 0.86 Estim Creat Clear Calc 88.37 Est GFR (MDRD) Af Amer 117 Est GFR (MDRD) Non-Af 97 BUN/Creatinine Ratio 16.3 Glucose 84 Calcium 8.7 Assessment/Plan All Active Problems Traumatic open wound of right lower leg with infection (Acute) Dog bite of calf (Acute) 1. Cellulitis of the RLE with infected ulcer due to dog bite * failed outpatient therapy * admit to [facility] surg * failed to respond to clindamycin and doxycycline on outpatient basis, developed a rash in response to penicillin * received vancomycin in ED; will start on IV meropenem. * get blood cultures and wound cultures * wound care consult * consult plastic surgery * duplex of RLE o/a of swelling of RLE * 2. COPD: Pulmicort and salmeterol as well as albuterol. 3. Depression: On Lexapro and Trileptal. DVT prophylaxis: Lovenox Code Visit Inpatient E&M: 92275 Init Hosp L3
[2019-04-02] MEDS: 0.9% Normal Saline 1,000 ML 125 ML IV (19:44)
[2019-04-02] MEDS: Albuterol 2.5 MG/3 ML VIAL.NEB. INHALATION (19:58)
[2019-04-02] MEDS: Budesonide Respules 0.5 MG/2 ML AMPUL.NEB. INHALATION (19:58)
[2019-04-02] MEDS: OXcarbazepine 300 MG Tablet PO (22:11)
[2019-04-02] MEDS: OXcarbazepine 150 MG Tablet PO (22:11)
[2019-04-03] VITALS (12 sets, daily range): BP systolic 97–143; BP diastolic 68–89; PULSE 53–78; RESP 16–20; TEMP 36.1–37.4; O2SAT 93–98; BMI 39.4
[2019-04-03] MEDS: 0.9% Normal Saline 1,000 ML 125 ML IV (03:01)
[2019-04-03 05:30] LABS: Absolute Lymphocyte Count 0.86 X10^3/uL (0.83-4.51); Absolute Neutrophil Count 2.9 X10^3/uL (2.0-7.7); Basophil# 0.03 X10^3/uL; Basophil% 0.7 % (0-1); Eosinophil# 0.13 X10^3/uL; Hematocrit 39.3 % (40-54); Hemoglobin 12.4 g/dL (13.0-16.5); Lymphocyte # 0.86 X10^3/ul (4.0); Lymphocyte % 19.6 % (19-41); Mean Corp Hgb Conc 31.6 g/dL (32-36); Mean Corpuscular Hgb 30.4 pg (27.0-32.0); Mean Corpuscular Volume 96.3 fL (80-94); Mean Platelet Vol. 9.9 fl (6.2-12.0); Monocyte# 0.44 X10^3/uL; NRBC Flagged by Analyzer 0 % (0-5); Neutrophil # 2.92 X10^3/uL (2.7-7.7); Neutrophil % 66.5 % (47-70); Platelet Count 196 K/mm3 (150-450); RBC Distribution Width CV 14.3 % (11.6-14.6); RBC Distribution Width SD 50.5 fl (35.1-43.9); Red Blood Count 4.08 M/mm3 (4.6-6.2); White Blood Count 4.4 K/mm3 (4.4-11.0)
[2019-04-03 05:51] LABS: Anion Gap 7 (5-15); BUN 9 mg/dL (7-18); BUN/Creat Ratio 11.7 RATIO (10-20); Calcium,Total 8.2 mg/dL (8.5-10.1); Chloride 111 mmol/L (98-107); Creatinine, Serum 0.77 mg/dL (0.70-1.30); EST Glomerular Filtration Rate 109 mL/min (>60); Est Glom Filt Rate - Afr Amer 132 mL/min (>60); Glucose 80 mg/dL (74-106); Potassium 4.6 mmol/L (3.5-5.1); Sodium Level 145 mmol/L (136-145)
[2019-04-03] MEDS: Budesonide Respules 0.5 MG/2 ML AMPUL.NEB. INHALATION ×2 (06:52→19:45)
[2019-04-03] MEDS: Albuterol 2.5 MG/3 ML VIAL.NEB. INHALATION ×2 (06:52→19:44)
--- NOTE | 2019-04-03 07:00 | VDLE_ITS ---
Reason For Study: Swelling RIGHT GSV is normal. CFV is compressible, spontaneous, phasic, competent and demonstrates normal augmentation. FV is compressible, spontaneous, phasic, competent and demonstrates normal augmentation. POP V is compressible, spontaneous, phasic, competent and demonstrates normal augmentation. T/P Trunk is compressible. PTV is compressible. RT PerV is compressible. Procedure Exam performed portable in patient room. A preliminary report was called and/or faxed to [facility]. Interpretation Summary There is no evidence of right lower extremity deep vein thrombosis. Right greater saphenous vein appears patent and compressible segmentally. Right popliteal fossa 0.84 x 2.9 x 4.66 cm cystic structure consistent with a Marshall's cyst Ordering Physician: Katarzyna Daniel Referring Physician: Balwinder Pruitt Chi Performed By: Maranda Maza RVT
--- NOTE | 2019-04-03 07:00 | PN_ITS ---
Patient Problems: Active and Suspected Problems Dog bite of calf (Acute) Subjective: Patient with no acute events overnight per self and per nursing report. Aside ongoing discomfort to the right medial calf region at bite shiv with ongoing induration, warmth, concern for potential abscess which was relayed to the patient. Following evaluation discussed at length with him that likely operative needs and surgeon was contacted with planned operative intervention in the afternoon. Patient notes that he was bitten by his own dog thing to divert a canine site and his dog is up-to-date on all vaccinations. Patient denies fevers, chills, nausea, emesis, abdominal pain, chest pain or dyspnea. Objective: Physical Examination: General: awake, alert, oriented x 3 and cooperative, seated upright in bed in no apparent distress; however, fatigued and ill appearing. Skin: normal color, turgor, no icterus, cyanosis sapped right medial proximal calf with bite shiv with induration, erythema, tenderness to palpation, warmth, suspected possible underlying abscess. HEENT: AT/NC, EOMI, PERRLA, mildly dry MM. Lungs: CTA bilaterally, moderate effort, moderate decrease BL bases, no rales, ronchi or wheezing. Heart: Bradycardic with regular rhythm; no gallop, rub audible. Abdomen: soft, obese, NTTP, ND, normal BS. Extremities: no cyanosis, clubbing, see skin, RLE edema w/ acute presentation. Neurological: patient awake, alert, oriented x 3; cognitive function intact; pupils equally reactive to light and accomodation; cranial nerves II-XII grossly normal, moving all 4 extremities although some limitation right lower extremity given acute presentation, strength accordingly moderately to severely global decrease. Psychiatric: affect appears fatigued, no acute evidence of depressive or anxiety feelings. Vitals/I&O's: Vital Signs Temp Pulse Resp BP Pulse Ox 98 F 54 L 16 135/87 H 94 04/03/19 03:03 04/03/19 03:03 04/03/19 03:03 04/03/19 03:03 04/03/19 03:03 Oxygen Delivery Method Room Air Weight: 263 lb 7.238 oz Body Mass Index (BMI) 39.4 Finger Stick Blood Glucose 77 Intake and Output for Last 24 Hours 04/01/19 04/02/19 04/03/19 23:59 23:59 23:59 Intake Total 2344 / 2344 Output Total 1650 / 1650 Balance 694 / 694 Laboratory Results 04/02/19 16:00: WBC 6.4, RBC 4.43 L, Hgb 13.7, Hct 41.9, MCV 94.6 H, MCH 30.9, MCHC 32.7, RDW Std Deviation 49.6 H, RDW Coeff of Wenceslao 14.4, Plt Count 226, MPV 10.3, Immature Gran % (Auto) 0.300, Neut % (Auto) 70.0, Lymph % (Auto) 17.4 L, [place]eman % (Auto) 9.3, Eos % (Auto) 2.2, Baso % (Auto) 0.8, Absolute Neuts (auto) 4.5, Absolute Lymphs (auto) 1.12, Absolute Nucleated RBC 0.00, Nucleated RBC % 0 04/02/19 16:00: Sodium 139, Potassium 4.6, Chloride 109 H, Carbon Dioxide 28.0, Anion Gap 2 L, BUN 14, Creatinine 0.86, Estim Creat Clear Calc 88.37, Est GFR (MDRD) Af Amer 117, Est GFR (MDRD) Non-Af 97, BUN/Creatinine Ratio 16.3, Glucose 84, Calcium 8.7 04/03/19 05:12: Sodium 145, Potassium 4.6, Chloride 111 H, Carbon Dioxide 27.0, Anion Gap 7, BUN 9, Creatinine 0.77, Estim Creat Clear Calc 98.70, Est GFR (MDRD) Af Amer 132, Est GFR (MDRD) Non-Af 109, BUN/Creatinine Ratio 11.7, Glucose 80, Calcium 8.2 L 04/03/19 05:12: WBC 4.4, RBC 4.08 L, Hgb 12.4 L, Hct 39.3 L, MCV 96.3 H, MCH 30.4, MCHC 31.6 L, RDW Std Deviation 50.5 H, RDW Coeff of Wenceslao 14.3, Plt Count 196, MPV 9.9, Immature Gran % (Auto) 0.200, Neut % (Auto) 66.5, Lymph % (Auto) 19.6, [place] % (Auto) 10.0, Eos % (Auto) 3.0, Baso % (Auto) 0.7, Absolute Neuts (auto) 2.9, Absolute Lymphs (auto) 0.86, Absolute Nucleated RBC 0.00, Nucleated RBC % 0 Current Medications Acetaminophen (Tylenol) 650 mg PO Q6H PRN PRN PRN Reason: Mild Pain (1-3)/Temp > 100.7 F Albuterol Sulfate (Ventolin Aerosols) 2.5 mg INHALATION Q4H PRN PRN PRN Reason: SOB &/OR WHEEZING Albuterol Sulfate (Ventolin Aerosols) 2.5 mg INHALATION Q6HWA.RT [facility] Last Admin: 04/03/19 06:52 Dose: 2.5 mg Documented by: Budesonide (Pulmicort Aerosol) 0.5 mg INHALATION Q12H.RT [facility] Last Admin: 04/03/19 06:52 Dose: 0.5 mg Documented by: Dextrose (D50w Syringe) 0 gm IV X1 PRN; Protocol PRN Reason: Hypoglycemia Enoxaparin Sodium (Lovenox) 40 mg SC DAILY@1000 CAREN Escitalopram Oxalate (Lexapro) 20 mg PO DAILY [facility] Glucagon () 1 mg IM .X1 PRN PRN Reason: Hypoglycemia Meropenem 1 gm/ Sodium (Chloride) 120 mls @ 33 mls/hr IV Q8 [facility] Last Admin: 04/03/19 06:04 Dose: 33 mls/hr Documented by: Sodium Chloride () 1,000 mls @ 125 mls/hr IV .Q8H [facility] Stop: 04/03/19 10:59 Last Admin: 04/03/19 03:01 Dose: 125 mls/hr Documented by: Oxcarbazepine (Trileptal) 300 mg PO BID [facility] Last Admin: 04/02/19 22:11 Dose: 300 mg Documented by: Oxcarbazepine (Trileptal) 150 mg PO BID [facility] Last Admin: 04/02/19 22:11 Dose: 150 mg Documented by: Sodium Chloride () 10 - 40 ml IV UD PRN PRN Reason: SALINE FLUSH Medical Necessity - Tobacco Use Smoking Status: Never smoker Tobacco Use: Non-smoker Assessment/Plan All Active Problems Dog bite of calf (Acute) The patient is a 59 y/o M w/ PMHx: Chronic Pain Syndrome, Diabetes mellitus type II, GERD, Anxiety and Depression, Hx Renal/Anal CA, Hx Migraines, Asthma, Hx PTSD who presents to the [facility] ED on 04/02/19 with history of approximate canine bite to his right medial proximal calf 10 days prior with progressively worsening erythema, edema, tenderness and ulceration with completion of outpatient Klim ice and and doxycycline 10-day course without improvement, worse in appearance and foul smell. (1) RLE Canine Bite w/ Cellulitis, Ulceration, Suspected Abscess: ED evaluation w/ CBC w/ WBC 6.4, HGb 13.7, Plts 226 without marked shift, afebrile, BMP unremarkable, evaluation with concern for abscess, likely OR needs, Dr. Reardon consulted, pending RLE CT scan, NPO status currently for suspected likely OR needs, continue meropenem in deference to allergies, PRN pain regimen. (2) Diabetes mellitus type II: Not on regimen, will obtain HgBA1c, noted in history, while NPO q 6 hour accu checks w/ ISS. (3) Chronic Asthma: Scheduled Budesonide, PRN albuterol, HOB, IS parameters. (4) Anxiety and Depression/PTSD: Continue home escitalopram regimen. (5) Chronic Pain, Neuropathy: Maintain on home trileptal regimen, PRN agents. (6) GERD: Famotidine. (7) DVT Prophylaxis: SCDs, lovenox w/ hold for possible OR. Code Visit Inpatient E&M: 08257 Rust Hosp L3
--- NOTE | 2019-04-03 08:46 | CON.PCM_ITS ---
Reason for Consult Date of Consultation: 04/03/19 Reason for Consultation: Dog bite infection abscess right proximal medial leg. REFERRING PHYSICIAN: Dr. Daniel. COCOA MILL OPERATOR: Dr. Reardon. History of Present Illness: The patient is a 59 year old M who sustained a dog bite wound to his right proximal medial leg about 2 weeks ago. He was trying to separate his dog (Tellez mix) from another dog (Pit bull) when he sustained the dog bite wound. He went to his PCP who placed him on Augmentin. He developed a rash and it was stopped. He was then placed on Clindamycin and Doxycycline for 10 days which he finished. He states he was given IV antibiotics in his office. The wound progressively worsened with drainage and odor. [facility] who recommended evaluation at the ED for admission. His WBC was normal at 6.4. He was given Vancomycin in the ED. He was then placed on Meropenem. I was asked to evaluate this patient for surgical options for treatment. He states he was insulin in the past for diabetes mellitus. Since his gastric bypass procedure, he is off insulin and is managing his diabetes mellitus with diet. Past Medical History Past Medical History (Chronic Problems): Chronic Problems Personal hx-rectal/anal malignancy (Chronic) Esophageal reflux (Chronic) Epilepsy undetermined as to focal or generalized, intractable (Chronic) sees Dr. Guillen DM type 2 (diabetes mellitus, type 2) (Chronic) Chronic pain syndrome (Chronic) Post traumatic stress disorder (PTSD) (Chronic) multiple abdominal surgeries (Chronic) Migraine headache (Chronic) Bronchial asthma (Chronic) Bariatric surgery status (Chronic) Allergies meperidine HCl [From Demerol] Allergy (Verified 04/02/19 14:35) Unknown Milk Containing Products Allergy (Verified 04/02/19 14:35) Anaphylaxis PER PT penicillin G Allergy (Verified 04/02/19 14:35) Hives potassium Adverse Reaction (Verified 04/02/19 14:35) Other Current Medications Acetaminophen (Tylenol) 650 mg PO Q6H PRN PRN PRN Reason: Mild Pain (1-3)/Temp > 100.7 F Albuterol Sulfate (Ventolin Aerosols) 2.5 mg INHALATION Q4H PRN PRN PRN Reason: SOB &/OR WHEEZING Albuterol Sulfate (Ventolin Aerosols) 2.5 mg INHALATION Q6HWA.RT CAREN Last Admin: 04/03/19 06:52 Dose: 2.5 mg Documented by: Budesonide (Pulmicort Aerosol) 0.5 mg INHALATION Q12H.RT [facility] Last Admin: 04/03/19 06:52 Dose: 0.5 mg Documented by: Dextrose (D50w Syringe) 0 gm IV X1 PRN; Protocol PRN Reason: Hypoglycemia Enoxaparin Sodium (Lovenox) 40 mg SC DAILY@1000 CAREN Escitalopram Oxalate (Lexapro) 20 mg PO DAILY [facility] Glucagon () 1 mg IM .X1 PRN PRN Reason: Hypoglycemia Meropenem 1 gm/ Sodium (Chloride) 120 mls @ 33 mls/hr IV Q8 [facility] Last Admin: 04/03/19 06:04 Dose: 33 mls/hr Documented by: Sodium Chloride () 1,000 mls @ 125 mls/hr IV .Q8H [facility] Stop: 04/03/19 10:59 Last Admin: 04/03/19 03:01 Dose: 125 mls/hr Documented by: Oxcarbazepine (Trileptal) 300 mg PO BID [facility] Last Admin: 04/02/19 22:11 Dose: 300 mg Documented by: Oxcarbazepine (Trileptal) 150 mg PO BID [facility] Last Admin: 04/02/19 22:11 Dose: 150 mg Documented by: Sodium Chloride () 10 - 40 ml IV UD PRN PRN Reason: SALINE FLUSH Home Medications: Ambulatory Orders Medication Instructions Recorded Budesonide Inhaler 180 mcg 2 puff INHALATION BID 02/14/15 [Pulmicort Inhaler 180 mcg] Salmeterol [Serevent Diskus] 2 puff INHALATION DAILY 02/14/15 Albuterol IH (ProAir) [Proair Hfa] 1 - 2 puff INHALATION Q4H PRN PRN 04/02/19 Oxcarbazepine 300 mg PO BID 04/02/19 Oxcarbazepine [Trileptal] 150 mg PO BID 04/02/19 Hydrocodone Bitart/Apap 5-325 1 - 2 tab PO Q4H PRN PRN 5 Days 04/05/19 [Cotati 5/325] #30 tab Levofloxacin [Levaquin] 500 mg PO DAILY #7 tab 04/05/19 Linezolid 600 mg PO BID #14 tab 04/05/19 Lorazepam [Ativan] 0.5 mg PO BID 7 Days #14 tab 04/05/19 Nutritional Supplement [Kushal - 1 packet PO BIDCM #60 packet 04/05/19 ORANGE FLAVOR] Temazepam [Restoril] 15 mg PO QHS PRN PRN #7 cap 04/05/19 metroNIDAZOLE [Flagyl] 500 mg PO Q8H #21 tab 04/05/19 Surgical History: noncontributory, - - Bariatric surgery Psychiatric History: No pertinent psych hx Lives: With Family Smoking Status: Never smoker Tobacco Use: Non-smoker Alcohol: None - quit drinking in 1999 - *Family History Maternal History Items: No pertinent history Paternal History Items: No pertinent history Review of Systems Comment: Constitutional: Reports: Malaise. Denies: Chills, Fever, Weight Change. Eyes: Denies: Blurred vision. HEENT: Denies: Head Aches, Sinus Congestion, Sinus Drainage. Cardiovascular: Denies: Chest Pain, Chest Pressure, Heaviness, Light Headedness, Orthopnea, Palpitations. Respiratory: Denies: Cough, Shortness of breath at rest, Sputum production. Gastrointestinal: Denies: Abdominal Pain, Nausea, Vomiting. Genitourinary: Denies: Dysuria. Musculoskeletal: Reports: Leg Pain - right leg. Skin: Reports: Rash, Wounds - right leg wound. Neurological: Denies: Numbness, Tingling, Focal weakness. Psychiatric: Denies: Anxiety, Depression, Homicidal Ideations, Suicidal Ideations. Hematologic/ Lymphatic: Denies: Easy Bruising, Easy Bleeding - Physical Exam General: Alert, Oriented x3. HEENT: PERRLA, EOMI. Oral: Moist Mucosa Neck: Supple, Nontender. No cervical adenopathy. Lungs: Clear to auscultation. Cardiovascular: Regular rate, regular rhythm. Abdomen: Soft, Nondistended. Extremities: No clubbing, No cyanosis. Mild edema right leg. In the right proximal medial leg is a dog bite wound that measures 4 x 5 cm. Surrounding induration of about 5 cm. Tender to palpation. Fat necrosis present. Some odor. Some greenish yellowish drainage noted. Lymphatic: No Cervical, Supraclavicular, or Inguinal Adenopathy Neurological: Cranial nerves II-XII grossly intact. Psych/Mental Status: Normal Affect, Appropriate, Alert and oriented to time, place, person, mood and affect Vital Signs Vital Signs Temp Pulse Resp BP Pulse Ox 98.1 F 60 18 129/86 H 93 04/03/19 07:47 04/03/19 07:47 04/03/19 07:47 04/03/19 07:47 04/03/19 07:47 Oxygen Delivery Method Room Air Weight: 263 lb 7.238 oz Body Mass Index (BMI) 39.4 Finger Stick Blood Glucose 77 Intake and Output for Last 24 Hours 04/01/19 04/02/19 04/03/19 23:59 23:59 23:59 Intake Total 2344 / 2344 Output Total 1650 / 1650 Balance 694 / 694 Laboratory Tests Past 24 Hrs 04/02/19 04/02/19 04/03/19 16:00 16:00 05:12 WBC 6.4 RBC 4.43 L Hgb 13.7 Hct 41.9 MCV 94.6 H MCH 30.9 MCHC 32.7 RDW Std Deviation 49.6 H RDW Coeff of Wenceslao 14.4 Plt Count 226 MPV 10.3 Immature Gran % (Auto) 0.300 Neut % (Auto) 70.0 Lymph % (Auto) 17.4 L [place] % (Auto) 9.3 Eos % (Auto) 2.2 Baso % (Auto) 0.8 Absolute Neuts (auto) 4.5 Absolute Lymphs (auto) 1.12 Absolute Nucleated RBC 0.00 Nucleated RBC % 0 Sodium 139 145 Potassium 4.6 4.6 Chloride 109 H 111 H Carbon Dioxide 28.0 27.0 Anion Gap 2 L 7 BUN 14 9 Creatinine 0.86 0.77 Estim Creat Clear Calc 88.37 98.70 Est GFR (MDRD) Af Amer 117 132 Est GFR (MDRD) Non-Af 97 109 BUN/Creatinine Ratio 16.3 11.7 Glucose 84 80 Calcium 8.7 8.2 L 04/03/19 05:12 WBC 4.4 RBC 4.08 L Hgb 12.4 L Hct 39.3 L MCV 96.3 H MCH 30.4 MCHC 31.6 L RDW Std Deviation 50.5 H RDW Coeff of Wenceslao 14.3 Plt Count 196 MPV 9.9 Immature Gran % (Auto) 0.200 Neut % (Auto) 66.5 Lymph % (Auto) 19.6 [place] % (Auto) 10.0 Eos % (Auto) 3.0 Baso % (Auto) 0.7 Absolute Neuts (auto) 2.9 Absolute Lymphs (auto) 0.86 Absolute Nucleated RBC 0.00 Nucleated RBC % 0 Sodium Potassium Chloride Carbon Dioxide Anion Gap BUN Creatinine Estim Creat Clear Calc Est GFR (MDRD) Af Amer Est GFR (MDRD) Non-Af BUN/Creatinine Ratio Glucose Calcium Assessment/Plan All Active Problems Necrotizing soft tissue infection (Acute) Abscess of right leg (Acute) Dog bite of right calf (Acute) Dog bite (Acute) Dog bite of calf (Acute) 1. Dog bite infection abscess right proximal medial leg. 2. Diabetes mellitus, diet-controlled. Continue Meropenem. He has failed outpatient therapy. With the increasing drainage and odor, besides IV antibiotics, he will need urgenet operative intervention with surgical preparation right proximal medial leg with incision and drainage and excisional debridement dog bite infection abscess. Suspect possible necrotizing process which can potentially spread rapidly and become life threatening. Will send tissue to Pathology for analysis and to Microbiology for culture. A positive culture may necessitate antibiotic modification. Will leave the wound open initially after surgery and begin wound care with the VAC. The VAC gets changed three times per week at 150 mmHg continuous suction. Post-discharge he will followup at the Wound Center. If there is a plateau in the healing process, we can proceed with delayed closure with skin grafting. Anticipate increased metabolic demands from the wound and the infection and operative intervention. Will check a Prealbumin and encourage nutritional supplementation with protein to help the healing process. Surgery will be done under general anesthesia. Will order a CT preoperatively to look for any deeper muscle involvement from the dog bite injury. Patient was informed of the risks and complications of the procedure including alternatives to surgery. These were discussed with the patient personally. Patient voices understanding and wishes to proceed. He understands the wound will be left open after the surgery followed by wound care. Code Visit Inpatient E&M: 20182 Init Hosp L3 - -57 Modifier ICD-10 - W54.0xxA, S81.851A, L02.415, M79.89, E11.9
--- NOTE | 2019-04-03 08:47 | CT_ITS ---
STUDY: CT SCAN of the leg RIGHT REASON FOR EXAM: Male, 59 years old. Recent dog bite involving the right lower leg. Pain. RADIATION DOSAGE (If Supplied By Facility): CTDIvol = ( 15.35 ) mGy, DLP = ( 1021.53 ) mGycm. Individualized dose optimization techniques were used for this CT.? TECHNIQUE: Multiple axial tomographic images were obtained from the knee down to the ankle joint without intravenous contrast administration. Coronal and sagittal reconstruction was obtained as well. COMPARISON: None. FINDINGS: In the posterior medial aspect of the proximal lower leg just distal to the popliteal fossa, there is a 2.3 cm x 1.3 cm fluid collection. More superficial at the same level, there is a 2.5 cm x 1.4 cm fluid collection. Just distal to the cystic fluid collections, there is evidence of volume overlying skin defect most likely an ulceration with stranding extending into the deep portion of the subcutaneous tissues. There is also evidence of diffuse overlying skin thickening. There is also evidence of a 1.3 cm small fluid collection with overlying soft tissue thickening and subcutaneous edema in the mid posterior medial aspect of the right leg. Findings are in keeping with the soft tissue injury due to a dog bite with the 3 small fluid collections as described. The bony structures are unremarkable. CT/Extremity Lower without Contra IMPRESSION: Soft tissue laceration the posteromedial aspect of the proximal right lower leg with the 3 small areas of loculated fluid as described. Electronically Signed: Carlos Shepherd, at 11:15 EDT , Service support ,
[2019-04-03 09:59] LABS: Hemoglobin A1c 5.4 % (4.2-6.3)
--- NOTE | 2019-04-03 10:19 | EKG12_ITS ---
Test Reason : PREOP Blood Pressure : / mmHG Vent. Rate : 054 BPM Atrial Rate : 054 BPM P-R Int : 206 ms QRS Dur : 094 ms QT Int : 474 ms P-R-T Axes : 052 -38 024 degrees QTc Int : 449 ms Sinus bradycardia Left axis deviation Abnormal ECG When compared with ECG of 19-MAY-2016 12:55, QT has lengthened Confirmed by ANA ROSA VILLAGRAN, ANG ([id number]), photography editor RAFAEL DEAN ([id number]) on 04/05/2019 2:17:23 PM Referred By: Balwinder Pruitt Confirmed By:LENNY OSEGUERA MD
--- NOTE | 2019-04-03 10:55 | CASEMGMT ---
RN CM Face to Face with patient for initial transition planning/care coordination assessment. RN CM introduced self and role at [facility]. Patient lying in bed, alert and oriented. Patient willing to participate in assessment and is able to answer all questions appropriately. Care providers, pharmacy, and demographics verified. Patient wishes to discharge home with possible HHC if patient requires wound vac or IV ATBs at discharge. Patient states that he would like [facility] HHC. Patient states he has no further needs or concerns at this time. CM to follow for discharge planning needs that may arise. PCP: [place] Specialists: Tamir neurology Preferred Pharmacy: [facility] Insurance: [facility] Prescription Benefit: yes Living Will/HPOA: none LNOK: Living Arrangements: Patient lives with in 2 story home with railings for stairs. Patient is independent and cares for who has MS. Transportation: Public transportation DME/HHC: Patient states that he has cane and walker at home. Patient denies previous HHC or SNF. CM to continue to monitor patient's needs at discharge. Possible HHC for wound vac or IV ATBs. Disposition Plan: Patient to discharge home with possible HHC, family support, and follow-up plans in place. Maranda RAMSAY, RN, CM
--- NOTE | 2019-04-03 11:00 | CASEMGMT ---
ALEXIS RAINEY made referral to [facility] for possible need for wound vac or IV ATBs. [facility] states that they can accept the patient. ALEXIS RAINEY will continue to monitor this patient and plan for a safe discharge.
[2019-04-03 11:35] LABS: Bedside Glucose 82 mg/dL (70-110)
--- NOTE | 2019-04-03 13:05 | NURSING ---
called report to Divya in AC at this time. Pt being transported off floor.
--- NOTE | 2019-04-03 14:20 | ABS_PTH ---
PATIENT: ELOINA TOVAR LOC: MS3 U#:[id number] AGE/SX: 59/M ROOM: [facility] RE04/02/[address]: Dr. Dawn Higuera MD : 1960 BED: 1 DIS: 04/05/2019 SPEC #: [id number] RECD: 04/03/19 16:32 STATUS: GIOVANNI REQ #: [id number] TAQUERIA: 04/03/19 14:[address]: Delbert Reardon DEPT: SURGICAL PATHOLOGY RECD BY: Patrick Anthony ENTERED: 04/04/19 09:15 SP TYPE: Abscess OTHR DR: MD Dr. Delbert العلي MD Dr. Nana Yaa Koram, MD Dr. Robert Leininger, MD Dr. Tai Chi Kwok, MD Tissues: Leg, NOS Procedures: PAS Fungus (control) Special Stain Group I Surgery Specimen Level III AFB Stain (control) Comments: @ Ordering doctor for SUIII edited from to @ by JOJO at 04/04/19 1150 @ Submitting doctor edited from to @ by RGOOD at 04/04/19 1150 HEADER OPERATION: Incision & drainage abscess leg PRE-OP DIAGNOSIS: Cellulitis of RLE with infected ulcer due to dog bite TISSUE SUBMITTED: Right leg abscess MICROSCOPIC DIAGNOSIS Right leg abscess: Skin with underlying tissue with focal ulceration, acute and chronic inflammation and granulation tissue reaction. Special stains for acid fast bacilli and fungi are negative for organisms; matched controls are appropriate. JULITO:jennifer 04/05/19 MICROSCOPIC DESCRIPTION Slides are reviewed. GROSS DESCRIPTION Received in fixative is one container labeled with the patient's name and designated right leg abscess. The specimen consists of a discoid fragment of pink-beverly skin measuring 8.5 x 7 cm and a depth of excision measuring 2.5 cm. In the central portion there is an ulcer measuring 2.6 x 2 x 1 cm. Serial sections do not reveal mass lesions. Electric Distribution Checker sections are submitted in two cassettes. / JULITO:jennifer 04/04/19 TC:2 CPT: 43867, 39663 x2
--- NOTE | 2019-04-03 15:08 | OP.PCM_ITS ---
Report of Operation Date of Procedure: 04/03/19 Pre-Operative Diagnosis: 1. Dog bite infection abscess right proximal medial leg. 2. Diabetes mellitus, diet-controlled. Post-Operative Diagnosis: Same. Surgery/Procedure Performed:: Surgical preparation right proximal medial leg with incision and drainage and excisional debridement dog bite infected abscess (108 cm2). Description of Surgical Findings:: The patient is a 59 year old M who sustained a dog bite wound to his right proximal medial leg about 2 weeks ago. He was trying to separate his dog (Tellez mix) from another dog (Pit bull) when he sustained the dog bite wound. He went to his PCP who placed him on Augmentin. He developed a rash and it was stopped. He was then placed on Clindamycin and Doxycycline for 10 days which he finished. He states he was given IV antibiotics in his office. The wound progressively worsened with drainage and odor. He went to the [facility] Center who recommended evaluation at the ED for admission. His WBC was normal at 6.4. He was given Vancomycin in the ED. He was then placed on Meropenem. I was asked to evaluate this patient for surgical options for treatment. He states he was insulin in the past for diabetes mellitus. Since his gastric bypass procedure, he is off insulin and is managing his diabetes mellitus with diet. Patient was informed of the risks and complications of the procedure including alternatives to surgery. These were discussed with the patient personally. Patient voices understanding and wishes to proceed. He voices understanding that the wound will be left open initially. Size of defect right proximal medial thigh - 12 x 9 x 1.5 cm. 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 Dog bite infection abscess right proximal medial thigh to Pathology and Microbiology. 2. MRSA Wound DNA by PCR. Drains: None. Estimated Blood Loss (mL): 150 ml. Description of Procedure: Patient was taken to OR in supine position and was placed under general anesthesia. The right proximal medial leg was prepped and draped in the usual fashion. SCD's were placed for DVT prophylaxis. Perioperative antibiotics were given intravenously. Using xylocaine with epinephrine, the wound area was infiltrated for postop pain relief. After waiting 5 minutes for the anesthetic to take effect, I made a circular incision around the area of greatest fluctuance in the right proximal thigh. Some pus was seen. Extensive amount of fat necrosis was present and was excised and debrided. Some indurated scar tissue was adherent to the underlying muscle that was also excised and debrided. Hemostasis was obtained with electrocautery. The wound was irrigated with saline. A 2-0 Vicryl multiple ligature was also used to assist in hemostasis. The size of the defect after incision and drainage and excisional debridement wa s 12 x 9 x 1.5 cm or 108 cm2. Tissue was sent to Pathology for analysis to rule out carcinoma and to Microbiology for culture. A positive culture may necessitate antibiotic modification. A MRSA Wound DNA by PCR was also done as well. The wound was dressed with Mepitel nonadherent dressing followed by Kerlix with Betadine followed by ABD pad compression dressing followed by an byron wrap for further compression. Patient tolerated the procedure well and was sent to PACU in satisfactory condition. Patient will be sent upstairs for continued postop care. Tomorrow the VAC will be placed. After discharge he will followup at the Wound Center. If there is a plateau in the healing process, we can proceed with delayed closure with skin grafting. Anticipate increased metabolic demands from the infection and the wound. Will check a Prealbumin and encourage nutritional supplementation with protein to help the healing process. Grafts/Implants Used: None. - Complications None. - Admit VTE Documentation VTE Present on Admission: No VTE Mechan Device Prophylaxis: SCD's VTE Pharm Prophylaxis ordered?: Yes Code Visit Surgery Charges CPT - 58907 ICD-10 - W54.0xxA, S81.851A, L02.415, M79.89, E11.9 01062 W54.0xxA, S81.851A, L02.415, M79.89, E11.9 30112 W54.0xxA, S81.851A, L02.415, M79.89, E11.9
[2019-04-03 15:21] LABS: Bedside Glucose 69 mg/dL (70-110)
--- NOTE | 2019-04-03 16:00 | CHAPLAIN ---
patient and bed were gone from room; left calling card
[2019-04-03] MEDS: HYDROcodone Bitartrate/Apap 5/325 Tablet PO ×2 (16:16→20:42)
[2019-04-03 17:14] LABS: M R Staph aureus DNA By PCR Negative (Negative); Probe Check PASS; Specimen Processing Control PASS; Staph aureus DNA By PCR NEGATIVE (Negative)
[2019-04-03] MEDS: OXcarbazepine 300 MG Tablet PO (20:44)
[2019-04-03] MEDS: Escitalopram Oxalate 20 MG Tablet PO (20:44)
[2019-04-03] MEDS: Famotidine 20 MG Tablet PO (20:45)
[2019-04-03] MEDS: OXcarbazepine 150 MG Tablet PO (20:46)
[2019-04-04] VITALS (7 sets, daily range): BP systolic 95–113; BP diastolic 67–70; PULSE 58–74; RESP 16–20; TEMP 36.8–37.1; O2SAT 95–98
[2019-04-04 00:36] LABS: Bedside Glucose 87 mg/dL (70-110)
[2019-04-04] MEDS: diazePAM 5 MG Tablet PO ×3 (03:29→20:18)
[2019-04-04] MEDS: HYDROcodone Bitartrate/Apap 5/325 Tablet PO ×2 (03:29→14:35)
[2019-04-04 06:18] LABS: Anion Gap 6 (5-15); BUN 20 mg/dL (7-18); BUN/Creat Ratio 24.1 RATIO (10-20); CRP 3.85 mg/L (0.0-3.0); Calcium,Total 7.8 mg/dL (8.5-10.1); Chloride 110 mmol/L (98-107); Creatinine, Serum 0.83 mg/dL (0.70-1.30); EST Glomerular Filtration Rate 100 mL/min (>60); Est Glom Filt Rate - Afr Amer 121 mL/min (>60); Estimated Creatinine Clearance 91.57 ml/min; Glucose 81 mg/dL (74-106); Potassium 4.6 mmol/L (3.5-5.1); Prealbumin 12.7 mg/dL (20.0-40.0); Sodium Level 142 mmol/L (136-145)
[2019-04-04 06:19] LABS: Hematocrit 37.7 % (40-54); Hemoglobin 11.9 g/dL (13.0-16.5); Mean Corp Hgb Conc 31.6 g/dL (32-36); Mean Corpuscular Hgb 30.4 pg (27.0-32.0); Mean Corpuscular Volume 96.4 fL (80-94); Mean Platelet Vol. 10.2 fl (6.2-12.0); Platelet Count 193 K/mm3 (150-450); RBC Distribution Width CV 14.6 % (11.6-14.6); RBC Distribution Width SD 51.2 fl (35.1-43.9); Red Blood Count 3.91 M/mm3 (4.6-6.2); White Blood Count 5.8 K/mm3 (4.4-11.0)
[2019-04-04 06:22] LABS: Erythrocyte Sedimentation Rate 3 mm/hr (0-20)
[2019-04-04 06:40] LABS: Bedside Glucose 100 mg/dL (70-110)
[2019-04-04] MEDS: Albuterol 2.5 MG/3 ML VIAL.NEB. INHALATION ×3 (07:01→19:09)
[2019-04-04] MEDS: Budesonide Respules 0.5 MG/2 ML AMPUL.NEB. INHALATION ×2 (07:01→19:10)
--- NOTE | 2019-04-04 07:20 | PCM.PN.HOSP ---
Patient Problems: Active and Suspected Problems Dog bite of calf (Acute) Subjective: Patient with no acute events overnight per self and per nursing report. Patient did have CT of the lower extremity day prior and there was notable loculated regions prompting transition to the OR with I&D of the infected dog bite abscess region with noted size of defect 13 x 9 x 1.5 cm with fortunately negative wound MRSA PCR. Patient evaluated by wound nurse with VAC placement and noted well healing region, healthy appearing tissue. Patient notes pain is controlled and states that he has mildly increased although still decreased appetite. Patient denies fevers, chills, nausea, emesis, abdominal pain, chest pain or dyspnea. Objective: Physical Examination: General: awake, alert, oriented x 3 and cooperative, seated upright in bed with improved appearance, eating, notes pain currently controlled. Skin: normal color, turgor, no icterus, cyanosis except right medial proximal calf status post I&D day prior, prior to VAC placement wound during evaluation with well appearing region, healthy appearing tissue following debridement. HEENT: AT/NC, EOMI, PERRLA, improved MMM. Lungs: CTA bilaterally, moderate effort, moderate decrease BL bases, no rales, ronchi or wheezing. Heart: Bradycardic with regular rhythm; no gallop, rub audible. Abdomen: soft, obese, NTTP, ND, normal BS. Extremities: no cyanosis, clubbing, see skin, RLE edema w/ acute presentation. Neurological: patient awake, alert, oriented x 3; cognitive function intact; pupils equally reactive to light and accomodation; cranial nerves II-XII grossly normal, moving all 4 extremities although some limitation right lower extremity given acute presentation, improved since day prior, strength accordingly moderately to global decrease. Psychiatric: affect appears improved, less fatigued than the prior, no acute evidence of depressive or anxiety feelings. Vitals/I&O's: Vital Signs Temp Pulse Resp BP Pulse Ox 98.2 F 61 16 106/67 97 04/04/19 02:05 04/04/19 02:05 04/04/19 02:05 04/04/19 02:05 04/04/19 02:05 Oxygen Flow Rate (L/min) 2 Oxygen Delivery Method Nasal Cannula Weight: 263 lb 7.238 oz Body Mass Index (BMI) 39.4 Finger Stick Blood Glucose 69 Intake and Output for Last 24 Hours 04/02/19 04/03/19 04/04/19 23:59 23:59 23:59 Intake Total 4205 / 4720 743 / 743 Output Total 2100 / 2450 600 / 600 Balance 2105 / 2270 143 / 143 Microbiology Past 72 Hours 04/02/19 16:52 Wound - Leg, Right Gram Stain - Final 04/02/19 16:52 Wound - Leg, Right Wound Culture - Preliminary Gram negative raz Laboratory Results 04/03/19 05:12: Hemoglobin A1c 5.4 04/03/19 11:12: POC Glucose 82 04/03/19 15:02: S.aureus Protein A PCR NEGATIVE, MRSA (PCR) Negative 04/03/19 15:15: POC Glucose 69 L 04/04/19 00:33: POC Glucose 87 04/04/19 05:24: WBC 5.8, RBC 3.91 L, Hgb 11.9 L, Hct 37.7 L, MCV 96.4 H, MCH 30.4, MCHC 31.6 L, RDW Std Deviation 51.2 H, RDW Coeff of Wenceslao 14.6, Plt Count 193, MPV 10.2, ESR 3 04/04/19 05:24: Sodium 142, Potassium 4.6, Chloride 110 H, Carbon Dioxide 26.0, Anion Gap 6, BUN 20 H, Creatinine 0.83, Estim Creat Clear Calc 91.57, Est GFR (MDRD) Af Amer 121, Est GFR (MDRD) Non-Af 100, BUN/Creatinine Ratio 24.1 H, Glucose 81, Calcium 7.8 L, C-React Prot Ext Range 3.85 H, Prealbumin 12.7 L 04/04/19 06:32: POC Glucose 100 Current Medications Acetaminophen (Tylenol) 650 mg PO Q6H PRN PRN PRN Reason: Mild Pain (1-3)/Temp > 100.7 F Hydrocodone Bitart/Acetaminophen ([place] 5mg-325mg) 1 - 2 tablet PO Q4H PRN PRN PRN Reason: MOD-SEVERE PAIN (4-10/10) Last Admin: 04/04/19 03:29 Dose: 2 tablet Documented by: Al Hydroxide/Mg Hydroxide (Mylanta Ii) 15 - 30 ml PO Q4H PRN PRN PRN Reason: INDIGESTION Albuterol Sulfate (Ventolin Aerosols) 2.5 mg INHALATION Q6HWA.RT [facility] Last Admin: 04/04/19 07:01 Dose: 2.5 mg Documented by: Budesonide (Pulmicort Aerosol) 0.5 mg INHALATION Q12H.RT [facility] Last Admin: 04/04/19 07:01 Dose: 0.5 mg Documented by: Dextrose (D50w Syringe) 0 gm IV X1 PRN; Protocol PRN Reason: Hypoglycemia Diazepam (Valium) 5 mg PO 4X/DAY PRN PRN PRN Reason: SPASMS Last Admin: 04/04/19 03:29 Dose: 5 mg Documented by: Enoxaparin Sodium (Lovenox) 40 mg SC DAILY@1000 [facility] Last Admin: 04/03/19 10:12 Dose: Not Given Documented by: Escitalopram Oxalate (Lexapro) 20 mg PO QHS [facility] Last Admin: 04/03/19 20:44 Dose: 20 mg Documented by: Famotidine (Pepcid) 20 mg PO BID [facility] Last Admin: 04/03/19 20:45 Dose: 20 mg Documented by: Glucagon () 1 mg IM .X1 PRN PRN Reason: Hypoglycemia Hydralazine HCl (Apresoline Iv) 10 mg IV Q4H PRN PRN PRN Reason: SBP > 160 Hydromorphone HCl (Dilaudid Inj) 1 mg IV Q4H PRN PRN PRN Reason: SEVERE PAIN (6-06/27) Meropenem 1 gm/ Sodium (Chloride) 120 mls @ 33 mls/hr IV Q8 [facility] Last Admin: 04/04/19 05:20 Dose: 33 mls/hr Documented by: Insulin Human Lispro (Humalog Kwikpen (Bkc)) 0 unit SC ACHS [facility]; Protocol Last Admin: 04/04/19 06:42 Dose: Not Given Documented by: Nutritional Formula (Kushal - [place] Flavor) [facility] Last Admin: 04/03/19 17:03 Dose: 1 packet Documented by: Oxcarbazepine (Trileptal) 300 mg PO BID [facility] Last Admin: 04/03/19 20:44 Dose: 300 mg Documented by: Oxcarbazepine (Trileptal) 150 mg PO BID [facility] Last Admin: 04/03/19 20:46 Dose: 150 mg Documented by: Sodium Chloride () 10 - 40 ml IV UD PRN PRN Reason: SALINE FLUSH Temazepam (Restoril) 15 mg PO QHS PRN PRN PRN Reason: INSOMNIA Medical Necessity - Tobacco Use Smoking Status: Never smoker Tobacco Use: Non-smoker Assessment/Plan All Active Problems Dog bite of calf (Acute) The patient is a 59 y/o M w/ PMHx: Chronic Pain Syndrome, Diabetes mellitus type II, GERD, Anxiety and Depression, Hx Renal/Anal CA, Hx Migraines, Asthma, Hx PTSD who presents to the [facility] ED on 04/02/19 with history of approximate canine bite to his right medial proximal calf 10 days prior with progressively worsening erythema, edema, tenderness and ulceration with completion of outpatient Klim ice and and doxycycline 10-day course without improvement, worse in appearance and foul smell. (1) RLE Canine Bite w/ Cellulitis, Ulceration, Suspected Abscess: ED evaluation w/ CBC w/ WBC 6.4, HGb 13.7, Plts 226 without marked shift, afebrile, BMP unremarkable, evaluation with concern for abscess. CT RLE obtained w/ . 04/03/[address] Reardon w/ I+D abscess dog bite region. 04/04/19 VAC placement per Wound RN. Wound Cx currently w/ GNR x 2 and GPC possible enterococcus therefore continued on Meropenem, IV vanc discontinued with negative MRSA screen. PRN pain regimen. Will need CM assist to set up VAC for home. (2) ? History of Diabetes mellitus type II: Not on regimen, HgBA1c 5.4%, discontinue accu checks. (3) Chronic Asthma: Scheduled Budesonide, PRN albuterol, HOB, IS parameters. (4) Anxiety and Depression/PTSD: Continue home escitalopram regimen. (5) Chronic Pain, Neuropathy: Maintain on home trileptal regimen, PRN agents. (6) GERD: Famotidine. (7) DVT Prophylaxis: SCDs, lovenox. Code Visit Inpatient E&M: 89705 Subs Hosp L2
[2019-04-04] MEDS: OXcarbazepine 300 MG Tablet PO ×2 (07:57→21:53)
[2019-04-04] MEDS: Enoxaparin 40 MG/0.4 ML Syringe SC (07:57)
[2019-04-04] MEDS: OXcarbazepine 150 MG Tablet PO ×2 (07:57→21:53)
[2019-04-04] MEDS: Famotidine 20 MG Tablet PO ×2 (07:57→21:54)
[2019-04-04] MEDS: 0.9% NaCl Peripheral Flush Adult/Peds IV ×2 (09:00→21:05)
[2019-04-04] MEDS: HYDROmorphone 1 MG/ML Syringe IV ×3 (09:00→21:04)
--- NOTE | 2019-04-04 10:47 | CON.PCM_ITS ---
Problem List (1) Dog bite of calf Status: Acute Reason for Consult: dog bite Consulted by: Dr. Higuera History of Present Illness: The patient is a 59 year old M with DM, presented with dog bite to R calf. Was bit on R forearm 03/07, went to ED, given doxy. 5 days later his dog and his daughter's dog (both up to date on shots) were fighting and he got bit on R calf. Saw PCP, got augmentin, developed rash and swelling, changed to doxy/clinda, but ongoing pain, redness, purulence, and horrible odor. One time fever. Came to ED 04/02 after wound care referral. Started on vanc x1, meropenem, taken to OR 04/[address] Reardon. Feeling better. Full ROS performed and neg except as noted above. - Medical History Past Medical History (Chronic Problems): Chronic Problems Personal hx-rectal/anal malignancy (Chronic) Esophageal reflux (Chronic) Epilepsy undetermined as to focal or generalized, intractable (Chronic) sees Dr. Guillen DM type 2 (diabetes mellitus, type 2) (Chronic) Chronic pain syndrome (Chronic) Post traumatic stress disorder (PTSD) (Chronic) multiple abdominal surgeries (Chronic) Migraine headache (Chronic) Bronchial asthma (Chronic) Bariatric surgery status (Chronic) Allergies/Adverse Reactions: Allergies meperidine HCl [From Demerol] Allergy (Verified 04/02/19 14:35) Unknown Milk Containing Products Allergy (Verified 04/02/19 14:35) Anaphylaxis PER PT penicillin G Allergy (Verified 04/02/19 14:35) Hives potassium Adverse Reaction (Verified 04/02/19 14:35) Other Home Medications: Ambulatory Orders Medication Instructions Recorded Budesonide Inhaler 180 mcg 2 puff INHALATION BID 02/14/15 [Pulmicort Inhaler 180 mcg] Salmeterol [Serevent Diskus] 2 puff INHALATION DAILY 02/14/15 Albuterol IH (ProAir) [Proair Hfa 1 - 2 puff INHALATION Q4H PRN PRN 04/02/19 (SP)Vent Pts] Escitalopram Oxalate [Lexapro] 20 mg PO QHS 04/02/19 Oxcarbazepine 300 mg PO BID 04/02/19 Oxcarbazepine [Trileptal] 150 mg PO BID 04/02/19 - Social History Tobacco Use: non-smoker Vital Signs Temp Pulse Resp BP Pulse Ox 98.7 F 59 L 18 95/70 98 04/04/19 07:47 04/04/19 07:47 04/04/19 07:47 04/04/19 07:47 04/04/19 07:47 Oxygen Flow Rate (L/min) 1 Oxygen Delivery Method Nasal Cannula Weight: 119.5 kg Body Mass Index (BMI) 39.4 Finger Stick Blood Glucose 69 Microbiology Past 72 Hours 04/02/19 16:52 Gram Stain - Final Wound - Leg, Right Wound Culture - Preliminary Gram negative raz Gram negative raz#2 GPC Poss Enterococcus sp Laboratory Tests Past 24 Hrs 04/03/19 04/04/19 04/04/19 15:02 05:24 05:24 WBC 5.8 RBC 3.91 L Hgb 11.9 L Hct 37.7 L MCV 96.4 H MCH 30.4 MCHC 31.6 L RDW Std Deviation 51.2 H RDW Coeff of Wenceslao 14.6 Plt Count 193 MPV 10.2 ESR 3 Sodium 142 Potassium 4.6 Chloride 110 H Carbon Dioxide 26.0 Anion Gap 6 BUN 20 H Creatinine 0.83 Estim Creat Clear Calc 91.57 Est GFR (MDRD) Af Amer 121 Est GFR (MDRD) Non-Af 100 BUN/Creatinine Ratio 24.1 H Glucose 81 Calcium 7.8 L C-React Prot Ext Range 3.85 H Prealbumin 12.7 L S.aureus Protein A PCR NEGATIVE MRSA (PCR) Negative - Other Studies Radiology: [] reviewed Other Studies: [] Route of nutrition/ use of supplements: [] Nutritional Intake: [] IV Site: [] Weber Catheter: [] - Physical Exam General: Alert, Oriented x3, Cooperative, No apparent distress HEENT: Atraumatic, PERRLA, EOMI Neck: Supple, No Nodes Lungs: Clear to auscultation, Normal air movement Cardiovascular: Regular rate, Regular Rhythm, No murmurs Abdomen: Soft, Non Tender, Non-Distended Extremities: No edema Skin: Incision - RLE wrapped IV Site: Peripheral, without redness Musculoskeletal: No Tenderness to Palpation of Joints or Extremities Neurological: Cranial nerves II-XII grossly intact - Assessment/Plan Antibiotics: [] Assessment/Plan: [] Active and Suspected Problems Dog bite of calf (Acute) RLE abscess s/p dog bite - OR 7/[address] Reardon. Surg cx with GNR. On meropenem. He reports tolerating keflex in the past, will narrow abx to cefepime/flagyl. Will follow, thank you, d/w primary team and outpatient case manager
--- NOTE | 2019-04-04 12:08 | NURSING ---
wound photo: right medial lower leg
[2019-04-04 12:10] LABS: Bedside Glucose 136 mg/dL (70-110)
--- NOTE | 2019-04-04 15:13 | CHAPLAIN ---
Type of Pastoral Visit _x__ Initial Visit ___ Follow-up Visit ___ On-call Visit ___ General Patient Visit ___ Spiritual Assessment ___ Family Conference ___ Bereavement ___ Rapid Response ___ Code Blue ___ Other (describe below) Pastoral Care Referral From _x__ Patient ___ Family ___ Nurse ___ Physician ___ Care Trainer ___ Master Motorcycle Technician ___ Other (describe below) Sacrament/Intervention _x__ Active listening ___ Anointing ___ Christianity ___ Bereavement ___ Communion ___ Dayana exploration ___ _x__ Life review _x__ Prayer ___ Reconciliation ___ Sacrament of Sick _x__ Supportive presence ___ Wedding ___ Other (describe below) Pastoral Comments
--- NOTE | 2019-04-04 17:31 | PCM.PN.SRG ---
Subjective: Postop #1 Patient is resting comfortably. VAC applied today. - Physical Exam General: Alert, Oriented x3 HEENT: PERRLA, EOMI Oral: Moist Mucosa Neck: Supple Abdomen: Non-Distended Extremities: Edema - mild edema in right leg. Skin: Ulcer/ Wound - dog bite wound right proximal medial leg is stable. No active bleeding seen. No evidence of further infection. VAC applied. Neurological: Cranial nerves II-XII grossly intact Psych/Mental Status: Normal Affect, Appropriate Vital Signs Temp Pulse Resp BP Pulse Ox 98.5 F 65 18 102/68 96 04/04/19 14:00 04/04/19 14:00 04/04/19 14:00 04/04/19 14:00 04/04/19 14:00 Oxygen Flow Rate (L/min) 2 Oxygen Delivery Method Nasal Cannula Weight: 263 lb 7.238 oz Body Mass Index (BMI) 39.4 Finger Stick Blood Glucose 69 Intake and Output for Last 24 Hours 04/02/19 04/03/19 04/04/19 23:59 23:59 23:59 Intake Total 4205 / 4720 1194 / 1194 Output Total 2100 / 2450 1125 / 1125 Balance 2105 / 2270 69 / 69 Microbiology Past 72 Hours 04/03/19 15:26 Gram Stain - Final Biopsy - Tissue 04/02/19 16:52 Gram Stain - Final Wound - Leg, Right Wound Culture - Preliminary Gram negative raz Gram negative raz#2 GPC Poss Enterococcus sp Laboratory Tests Past 24 Hrs 04/04/19 04/04/19 05:24 05:24 WBC 5.8 RBC 3.91 L Hgb 11.9 L Hct 37.7 L MCV 96.4 H MCH 30.4 MCHC 31.6 L RDW Std Deviation 51.2 H RDW Coeff of Wenceslao 14.6 Plt Count 193 MPV 10.2 ESR 3 Sodium 142 Potassium 4.6 Chloride 110 H Carbon Dioxide 26.0 Anion Gap 6 BUN 20 H Creatinine 0.83 Estim Creat Clear Calc 91.57 Est GFR (MDRD) Af Amer 121 Est GFR (MDRD) Non-Af 100 BUN/Creatinine Ratio 24.1 H Glucose 81 Calcium 7.8 L C-React Prot Ext Range 3.85 H Prealbumin 12.7 L POC Glucose 04/04/19 04/04/19 04/04/19 12:03 06:32 00:33 POC Glucose 136 H 100 87 Medical Necessity - Tobacco Use Smoking Status: Never smoker Tobacco Use: Non-smoker Assessment/Plan All Active Problems Dog bite of calf (Acute) 1. Dog bite infection abscess right proximal medial leg. 2. Diabetes mellitus, diet-controlled. 3. s/p surgical preparation right proximal medial thigh with incision and drainage and excisional debridement dog bite infected abscess (108 cm2). Continue Meropenem. Operative cultures show Gram negative rods and Gram positive cocci possible Enterococcus. Dog bite wound is stable. No active bleeding seen. No evidence of further infection. VAC applied today with some discomfort. The VAC gets changed three times per week at 150 mmHg continuous suction. Post-discharge he will [facility]up [facility]. If there is a plateau in the healing process, we can proceed with delayed closure with skin grafting. Anticipate increased metabolic demands from the wound and the infection and operative intervention. Prealbumin was 12.7. Encourage nutritional supplementation with protein to help the healing process.
[2019-04-04] MEDS: Escitalopram Oxalate 20 MG Tablet PO (21:53)
[2019-04-05 02:00] VITALS: BP 107/70; PULSE 63; RESP 16; TEMP 36.9; O2SAT 99
[2019-04-05 07:11] VITALS: PULSE 63; RESP 16
[2019-04-05] MEDS: Albuterol 2.5 MG/3 ML VIAL.NEB. INHALATION (07:11)
[2019-04-05] MEDS: Budesonide Respules 0.5 MG/2 ML AMPUL.NEB. INHALATION (07:11)
[2019-04-05 08:00] VITALS: BP 103/75; PULSE 65; RESP 18; TEMP 37.1; O2SAT 94
[2019-04-05] MEDS: Enoxaparin 40 MG/0.4 ML Syringe SC (08:27)
[2019-04-05] MEDS: Famotidine 20 MG Tablet PO (08:28)
[2019-04-05] MEDS: OXcarbazepine 300 MG Tablet PO (08:28)
[2019-04-05] MEDS: OXcarbazepine 150 MG Tablet PO (08:28)
--- NOTE | 2019-04-05 09:01 | NURSING ---
Pt switched over to the home VAC. reviewed alarms, etc. with patient. patient signed the proof of delivery and form faxed to [facility]. pt denies questions at this time.
--- NOTE | 2019-04-05 09:09 | PCM.PN.ID ---
Patient Problems: Active and Suspected Problems Dog bite of calf (Acute) Subjective: Patient is alert overall clinically stable. No fevers. Status post surgical debridement of the right leg wound at the site of the dog bite. Microbiological data reviewed Objective: Alert and oriented does not appear toxic lungs are clear heart exam S1-S2 right leg postop dressing in place - Physical Exam Vital Signs Temp Pulse Resp BP Pulse Ox 98.8 F 65 18 103/75 94 04/05/19 08:00 04/05/19 08:00 04/05/19 08:00 04/05/19 08:00 04/05/19 08:00 Oxygen Flow Rate (L/min) 2 Oxygen Delivery Method Room Air Weight: 119.5 kg Body Mass Index (BMI) 39.4 Finger Stick Blood Glucose 69 Intake and Output for Last 24 Hours 04/03/19 04/04/19 04/05/19 23:59 23:59 23:59 Intake Total 4205 / 4720 1747 / 2135 476 / 476 Output Total 2100 / 2450 1125 / 1425 300 / 300 Balance 2105 / 2270 622 / 710 176 / 176 Microbiology Past 72 Hours 04/02/19 16:52 Gram Stain - Final Wound - Leg, Right Wound Culture - Final Enterobacter cloacae complex Enterococcus faecalis Anaerobic Culture - Preliminary Checking for anaerobes, further studies to follow. 04/03/19 15:26 Gram Stain - Final Biopsy - Tissue Anaerobic Culture - Preliminary Checking for anaerobes, further studies to follow. POC Glucose 04/04/19 12:03 POC Glucose 136 H Medical Necessity - Tobacco Use Smoking Status: Never smoker Tobacco Use: Non-smoker Route of nutrition/ use of supplements: [] Nutritional Intake: [] IV Site: [] Weber Catheter: [] - Assessment/Plan Antibiotics: [] Assessment/Plan: [] Active and Suspected Problems Dog bite of calf (Acute) Right leg wound infection secondary to dog bite. Microbiological data reviewed. Based on the microbiological data and is penicillin allergy we will treat with Zyvox 600 mg p.o. every 12 hours plus levofloxacin 500 mg p.o. daily plus Flagyl 500 mg p.o. 3 times daily all for 7 more days.
--- NOTE | 2019-04-05 09:12 | PCM.DC ---
- Discharge Diagnoses Current Active Problems: Current Active and Chronic Problems (1) RLE Canine Bite w/ Enterobacter cloacae and Enterococcus faecalis Cellulitis, Ulceration, Abscess (2) ? History of Diabetes mellitus type II (HgBA1c 5.4%) (3) Chronic Asthma (4) Anxiety and Depression/PTSD (Held Lexapro on discharge, will restart following completion linezolid) (5) Chronic Pain, Neuropathy (6) GERD (7) Obesity You will use the following diet at home:: Regular Your food should be the consistency of: Regular Your liquids should be the consistency of: Regular/Thin Discharge Activity: Use Walker, - - Moderate your activity given usage of right lower extremity VAC machine. Advance activity once cleared per Dr. Reardon. Weight Bearing Status: Weight bearing as tolerated Keep extremity elevated above heart level: Operative Extremity Call your doctor if your incision/area has: Continuous Slow Oozing, Sudden Increased Bleeding, Increased Pain/ Swelling, Increased Redness, Foul Smelling Discharge, Swelling at the incision site, - - Immediately contact home health services if your VAC suction appears to malfunction. Call your doctor if you observe: Fever of 101 or Higher, Inability to urinate, Inability to have a bowel movement, Shortness of breath, Dizziness, Fainting spells, Chest pain, Uncontrolled pain Additional Dressing/Incision Instructions:: Home health will change the VAC dressing on 04/06/19 and then you will transition to a Monday, Monday and Monday VAC change regimen. Instructions: Recognizing and Treating Wound Infection, Abscess Drainage, Cellulitis Allergies/Adverse Reactions: Allergies meperidine HCl [From Demerol] Allergy (Verified 04/02/19 14:35) Unknown Milk Containing Products Allergy (Verified 04/02/19 14:35) Anaphylaxis PER PT penicillin G Allergy (Verified 04/02/19 14:35) Hives potassium Adverse Reaction (Verified 04/02/19 14:35) Other Medications to take at Discharge Budesonide Inhaler 180 mcg [Pulmicort Inhaler 180 mcg] 2 puff INHALATION BID 02/14/15 Salmeterol [Serevent Diskus] 2 puff INHALATION DAILY 02/14/15 Albuterol IH (ProAir) [Proair Hfa] 1 - 2 puff INHALATION Q4H PRN PRN 04/02/19 Oxcarbazepine 300 mg PO BID 04/02/19 Oxcarbazepine [Trileptal] 150 mg PO BID 04/02/19 Hydrocodone Bitart/Apap 5-325 [[place] 5/325] 1 - 2 tablet PO Q4H PRN PRN 5 Days #30 tablet 04/05/19 Levofloxacin [Levaquin] 500 mg PO DAILY #7 tablet 04/05/19 Linezolid 600 mg PO BID #14 tablet 04/05/19 Nutritional Supplement [Kushal - [place]ANGE FLAVOR] 1 packet PO BIDCM #60 packet 04/05/19 metroNIDAZOLE [Flagyl] 500 mg PO Q8H #21 tablet 04/05/19 The following prescriptions were given: metroNIDAZOLE [Flagyl] 500 mg PO Q8H #21 tablet Nutritional Supplement [Kushal - [place] FLAVOR] 1 packet PO BIDCM #60 packet Transmission Status: Pending to [facility] #30 Levofloxacin [Levaquin] 500 mg PO DAILY #7 tablet Linezolid 600 mg PO BID #14 tablet Hydrocodone Bitart/Apap 5-325 [[place] 5/325] 1 - 2 tablet PO Q4H PRN PRN 5 Days #30 tablet PRN Reason: Mod-Severe Pain (4-06/27) Transmission Status: Sent to [facility] #30 Primary Care Physician: Balwinder Pruitt Chi, MD [Primary Care Provider] - Please follow up with your Primary Care Physician in: Follow-up with PCP within 3-5 days. Test Results: Test results from this visit will be discussed in further detail at your follow-up appointment, if applicable. Please Follow Up With: Delbert Reardon MD When: [facility]-up at [facility] within [address] Reardon discretion. Proposed Discharge Date: 04/05/19
--- NOTE | 2019-04-05 09:20 | PCM.DC.SUM ---
Discharge Date and Diagnosis - Problem List Patient Problems: Active and Suspected Problems Dog bite of calf (Acute) Date of Admission: 04/02/19 Date of Discharge: 04/05/19 - Primary Discharge Diagnosis Active and Suspected Problems (1) RLE Canine Bite w/ Enterobacter cloacae and Enterococcus faecalis Cellulitis, Ulceration, Abscess (2) ? History of Diabetes mellitus type II (HgBA1c 5.4%) (3) Chronic Asthma (4) Anxiety and Depression/PTSD (Held Lexapro on discharge, will restart following completion linezolid) (5) Chronic Pain, Neuropathy (6) GERD (7) Obesity - Secondary Discharge Diagnosis Chronic Problems Personal hx-rectal/anal malignancy (Chronic) Esophageal reflux (Chronic) Epilepsy undetermined as to focal or generalized, intractable (Chronic) sees Dr. Guillen DM type 2 (diabetes mellitus, type 2) (Chronic) Chronic pain syndrome (Chronic) Post traumatic stress disorder (PTSD) (Chronic) multiple abdominal surgeries (Chronic) Migraine headache (Chronic) Bronchial asthma (Chronic) Bariatric surgery status (Chronic) Hospital Course and Treatment Consultations 04/03/19 01:10 Consult: Onc/Wound/resolution analyst Routine Comment: Dr. Reardon Surgeon, Plastics Dr. Saul/Dawood Infectious disease Operations: None Procedures: EKG Summary of Care Provided: The patient is a 59 y/o M w/ PMHx: Chronic Pain Syndrome, Diabetes mellitus type II, GERD, Anxiety and Depression, Hx Renal/Anal CA, Hx Migraines, Asthma, Hx PTSD who presented to the [facility] ED on 04/02/19 with history of approximate canine bite to his right medial proximal calf 10 days prior with progressively worsening erythema, edema, tenderness and ulceration with completion of outpatient Klim ice and and doxycycline 10-day course without improvement, worse in appearance and foul smell. ED evaluation w/ CBC w/ WBC 6.4, HGb 13.7, Plts 226 without marked shift, afebrile, BMP unremarkable, evaluation with concern for abscess. CT RLE obtained w/ soft tissue laceration to the posterior medial aspect of the proximal right lower leg with 3 small areas of loculated fluid. 04/03/[address] Reardon w/ I+D abscess dog bite region. 04/04/19 VAC placement per Wound RN. Wound Cx with resulting Enterobacter cloacae complex and Enterococcus faecalis. Patient during admission initiated and maintained on Meropenem, IV vanc discontinued with negative MRSA screen-->upon discharge, patient per review with ID transitioned to oral linezolid, flagyl and levaquin with patient instruction to hold his lexapro x 7 days while on this regimen. VAC set-up for home with home health. Given patient unclear diabetes history during admission obtained HgBA1c 5.4%. Patient discharged to home in improved, stable condition with plan to follow-up with primary care physician as well as Dr. Reardon at the wound care center with continued home health therapies with VAC changes and continue antibiotic therapy x7 days. DAY OF DISCHARGE PROGRESS NOTE: Subjective: Patient without acute event overnight per self and nursing report. Patient notes right lower extremity discomfort has improved, controlled with current regimen. He does state some discomfort with walking and requested walker prescription for home which was provided. Patient denies fever, chills, nausea, emesis, abdominal pain, chest pain or dyspnea. Patient agreeable to discharge to home with home health with plan VAC change in a.m. and then transition to Monday, Monday, Monday regimen. Patient will be discharged with follow-up with primary care physician within 3-5 days in addition to follow-up with Dr. Reardon in the wound care clinic per his discretion or within 1 week. Objective: T 98.8, heart rate 65, BP 103/75, respiratory rate 18, 94% on room air. Physical Examination: General: awake, alert, oriented x 3 and cooperative, seated upright in bed, no acute distress, pain currently controlled he notes. Skin: normal color, turgor, no icterus, cyanosis except right medial proximal calf status post I&D day prior, VAC currently in place with serosanguineous drainage. HEENT: AT/NC, EOMI, PERRLA, improved MMM. Lungs: CTA bilaterally, moderate effort, moderate decrease BL bases, no rales, ronchi or wheezing. Heart: Regular rate and regular rhythm; no gallop, rub audible. Abdomen: soft, obese, NTTP, ND, normal BS. Extremities: no cyanosis, clubbing, see skin, RLE edema w/ acute presentation. Neurological: patient awake, alert, oriented x 3; cognitive function intact; pupils equally reactive to light and accomodation; cranial nerves II-XII grossly normal, moving all 4 extremities although some limitation right lower extremity given acute presentation and VAC in place, strength improving, mildly to moderately globally decreased. Psychiatric: affect appears mildly flat, no acute evidence of depressive or anxiety feelings. Assessment and Plan: Please see hospital summary above. Patient Problems: Active and Suspected Problems Dog bite of calf (Acute) - Physical Exam Vital Signs Temp Pulse Resp BP Pulse Ox 98.8 F 65 18 103/75 94 04/05/19 08:00 04/05/19 08:00 04/05/19 08:00 04/05/19 08:00 04/05/19 08:00 Oxygen Flow Rate (L/min) 2 Oxygen Delivery Method Room Air Weight: 263 lb 7.238 oz Body Mass Index (BMI) 39.4 Finger Stick Blood Glucose 69 Intake and Output for Last 24 Hours 04/03/19 04/04/19 04/05/19 23:59 23:59 23:59 Intake Total 4205 / 4720 1747 / 2135 476 / 476 Output Total 2100 / 2450 1125 / 1425 300 / 300 Balance 2105 / 2270 622 / 710 176 / 176 Microbiology Past 72 Hours 04/02/19 16:52 Gram Stain - Final Wound - Leg, Right Wound Culture - Final Enterobacter cloacae complex Enterococcus faecalis Anaerobic Culture - Preliminary Checking for anaerobes, further studies to follow. 04/03/19 15:26 Gram Stain - Final Biopsy - Tissue Anaerobic Culture - Preliminary Checking for anaerobes, further studies to follow. POC Glucose 04/04/19 12:03 POC Glucose 136 H Discharge Activity: Use Walker, - - Moderate your activity given usage of right lower extremity VAC machine. Advance activity once cleared per Dr. Reardon. Weight Bearing Status: Weight bearing as tolerated Keep extremity elevated above heart level: Operative Extremity Call your doctor if your incision/area has: Continuous Slow Oozing, Sudden Increased Bleeding, Increased Pain/ Swelling, Increased Redness, Foul Smelling Discharge, Swelling at the incision site, - - Immediately contact home health services if your VAC suction appears to malfunction. Call your doctor if you observe: Fever of 101 or Higher, Inability to urinate, Inability to have a bowel movement, Shortness of breath, Dizziness, Fainting spells, Chest pain, Uncontrolled pain Additional Dressing/Incision Instructions:: Home health will change the VAC dressing on 04/06/19 and then you will transition to a Monday, Monday and Monday VAC change regimen. Home Medications: Medications to take at Discharge Budesonide Inhaler 180 mcg [Pulmicort Inhaler 180 mcg] 2 puff INHALATION BID 02/14/15 Salmeterol [Serevent Diskus] 2 puff INHALATION DAILY 02/14/15 Albuterol IH (ProAir) [Proair Hfa] 1 - 2 puff INHALATION Q4H PRN PRN 04/02/19 Oxcarbazepine 300 mg PO BID 04/02/19 Oxcarbazepine [Trileptal] 150 mg PO BID 04/02/19 Hydrocodone Bitart/Apap 5-325 [[place] 5/325] 1 - 2 tablet PO Q4H PRN PRN 5 Days #30 tablet 04/05/19 Levofloxacin [Levaquin] 500 mg PO DAILY #7 tablet 04/05/19 Linezolid 600 mg PO BID #14 tablet 04/05/19 Nutritional Supplement [Kushal - ORANGE FLAVOR] 1 packet PO BIDCM #60 packet 04/05/19 metroNIDAZOLE [Flagyl] 500 mg PO Q8H #21 tablet 04/05/19 Following Prescrptions Were Given to Patient: metroNIDAZOLE [Flagyl] 500 mg PO Q8H #21 tablet Nutritional Supplement [Kushal - ORANGE FLAVOR] 1 packet PO BIDCM #60 packet Transmission Status: Pending to [facility] #30 Levofloxacin [Levaquin] 500 mg PO DAILY #7 tablet Linezolid 600 mg PO BID #14 tablet Hydrocodone Bitart/Apap 5-325 [[place] 5/325] 1 - 2 tablet PO Q4H PRN PRN 5 Days #30 tablet PRN Reason: Mod-Severe Pain (-06/27) Transmission Status: Sent to [facility] #30 Primary Care Physician: Balwinder Pruitt Chi, MD [Primary Care Provider] - Please follow up with your Primary Care Physician in: Follow-up with PCP within 3-5 days. Please Follow Up With: Delbert Reardon MD When: Follow-up at Wound Care Center within [address] Reardon discretion. Patient Instructions: Recognizing and Treating Wound Infection, Abscess Drainage, Cellulitis Disposition: Home with Home Health Minutes spent on discharge:: 35 Patient Condition:: Fair Medical Necessity - Tobacco Use Smoking Status: Never smoker Tobacco Use: Non-smoker Meaningful Use Info Meaningful Use Diagnoses (Choose all that apply): None applicable Code Visit Inpatient E&M: 03257 Disch Hosp
--- NOTE | 2019-04-05 09:30 | CASEMGMT ---
ALEXIS RAINEY received update that patient is requesting walker at discharge. Script received and referral sent to [facility], patient's choice for DME. ALEXIS RAINEY arranged for walker to be delivered to hospital prior to discharge. ALEXIS RAINEY confirmed with [facility] for start of care for Monday04/06/19 for next wound vac change. ALEXIS RAINEY updated the patient regarding walker and HHC. Patient voiced understand and had no further concerns.
--- NOTE | 2019-04-05 09:48 | NURSING ---
This nurse noticed there is no Incentive Spirometer in room, this pt educated and pt refused for this nurse to get one. I wont use it anyways. This nurse then educated and taught pt how to take deep breaths and cough x10 every hr.
[2019-04-05] MEDS: diazePAM 5 MG Tablet PO (11:27)
[2019-04-05] MEDS: HYDROcodone Bitartrate/Apap 5/325 Tablet PO (11:27)
[2019-04-05 12:14] VITALS: BP 146/75; PULSE 88; RESP 18; TEMP 36.4; O2SAT 96
--- NOTE | 2019-04-05 12:15 | NURSING ---
This going over Discharge instructions and informed pt that he must stop his LExapro. I can't and wont stop it because if I do, I will become Angry and agitated and kill people. This nurse contacted Dr. Higuera and she said he must stop it because of the Antibotic Linezold. Dr. Higuera informed this nurse that Linezold and Lexapro should not be taken together and that she (Dr. Higuera) can write for ATivan instead. Pt is agreeable to this. Patient also informed that if Ativan is not effective, to call Dr. Pruitt immediately.
--- NOTE | 2019-04-08 15:29 | CASEMGMT ---
ALEXIS DC PHONE CALL DC DATE: 04/05/19 DC Disposition: Home Diagnosis on Discharge: Cellulitis from Canine Bite LACE/STRATA: 08/21 Attempted call to patient, no answer and no machine with identifier. Call to [facility]- pt was seen and will be current with them. Pauly WELLSN RN ACM
== END 2019-04-05 12:30 | disposition home health service (06) | DRG 580 ==
LOC: ED 17:09 → MS3 17:37
PROVIDERS: Surgery; Admitting Provider Student in an Organized Health Care Education/Training Program; Emergency Provider Emergency Medicine; Family Provider Family Medicine Geriatric Medicine; PCP Family Medicine Geriatric Medicine; Visit Provider Family Medicine
PROC: 0KBS0ZZ Excision of Right Lower Leg Muscle, Open Approach (ICD-10-PCS; principal; 2019-04-03 14:10)
DX: S81.851A Open bite, right lower leg, initial encounter (principal); L03.115 Cellulitis of right lower limb; L02.415 Cutaneous abscess of right lower limb; B96.89 Other specified bacterial agents as the cause of diseases classified elsewhere; B95.2 Enterococcus as the cause of diseases classified elsewhere; W54.0XXA Bitten by dog, initial encounter; Z98.84 Bariatric surgery status; E66.9 Obesity, unspecified; K21.9 Gastro-esophageal reflux disease without esophagitis; G62.9 Polyneuropathy, unspecified; G89.4 Chronic pain syndrome; F32.9 Major depressive disorder, single episode, unspecified; F41.9 Anxiety disorder, unspecified; J45.909 Unspecified asthma, uncomplicated; Z88.0 Allergy status to penicillin; G40.909 Epilepsy, unspecified, not intractable, without status epilepticus; Z86.39 Personal history of other endocrine, nutritional and metabolic disease; Z68.39 Body mass index [BMI] 39.0-39.9, adult; E11.9 Type 2 diabetes mellitus without complications; F43.12 Post-traumatic stress disorder, chronic; Z79.899 Other long term (current) drug therapy
CPT/HCPCS: 36415; 73590; 73700; 80048; 82962; 83036; 84134; 85025; 85027; 85652; 86140; 87040; 87070; 87075; 87077; 87102; 87176; 87186; 87205; 87206; 87640; 88304; 88312; 93005; 93971; 94640; 97802; 99213; 99283; J2185; J7030; J7040; A4216; G0463; J2405

== ENCOUNTER 2019-04-09 15:45 | Outpatient (RCR) | payer MEDICARE, MEDICAID, SELFPAY ==
[2019-04-02 12:53] VITALS: BP 147/106; PULSE 67; RESP 18; TEMP 36; BMI 40.6
--- NOTE | 2019-04-02 16:56 | PCM.WC.HP ---
(1) Traumatic open wound of right lower leg with infection Status: Acute Current Visit: Yes Code(s): S81.801A - Unspecified open wound, right lower leg, initial encounter; L08.9 - Local infection of the skin and subcutaneous tissue, unspecified (2) Dog bite of calf Status: Acute Current Visit: Yes Code(s): S81.859A - Open bite, unspecified lower leg, initial encounter; W54.0XXA - Bitten by dog, initial encounter (3) DM type 2 (diabetes mellitus, type 2) Status: Chronic Current Visit: Yes Code(s): E11.9 - Type 2 diabetes mellitus without complications History of Present Illness Date of Service: 04/02/19 Chief Complaint: Dog bite to right medial calf History of Wound: Patient was bit by his dog approximately 2 weeks ago. He initially saw his PCP. His PCP has been giving him IV antibiotics daily in his office. He was referred here for debridement of the right calf wound which is extremely tender to palpation and erythematous around the wound and very firm. Patient is denying fevers and chills but states I just don't feel right. Past Medical History Past Medical History: Chronic Problems Personal hx-rectal/anal malignancy (Chronic) Esophageal reflux (Chronic) Epilepsy undetermined as to focal or generalized, intractable (Chronic) sees Dr. Guillen DM type 2 (diabetes mellitus, type 2) (Chronic) Chronic pain syndrome (Chronic) Post traumatic stress disorder (PTSD) (Chronic) multiple abdominal surgeries (Chronic) Migraine headache (Chronic) Bronchial asthma (Chronic) Bariatric surgery status (Chronic) Surgical History: noncontributory, - - Bariatric surgery Allergies/Adverse Reactions: Allergies meperidine HCl [From Demerol] Allergy (Verified 04/02/19 14:35) Unknown Milk Containing Products Allergy (Verified 04/02/19 14:35) Anaphylaxis PER PT penicillin G Allergy (Verified 04/02/19 14:35) Hives potassium Adverse Reaction (Verified 04/02/19 14:35) Other Home Medications: Ambulatory Orders Medication Instructions Recorded Budesonide Inhaler 180 mcg 2 puff INHALATION BID 02/14/15 [Pulmicort Inhaler 180 mcg] Salmeterol [Serevent Diskus] 2 puff INHALATION DAILY 02/14/15 Albuterol IH (ProAir) [Proair Hfa 1 - 2 puff INHALATION Q4H PRN PRN 04/02/19 (SP)Vent Pts] Escitalopram Oxalate [Lexapro] 20 mg PO DAILY 04/02/19 Oxcarbazepine 300 mg PO BID 04/02/19 Oxcarbazepine [Trileptal] 150 mg PO BID 04/02/19 - Family History Maternal No pertinent history Paternal No pertinent history Smoking Status: Never smoker Review of Systems Constitutional: Reports: Fatigue. Denies: Chills, Fever Eyes: Denies: Pain, Vision Change HEENT: Denies: Difficulty Hearing, Difficulty Swallowing, Sinus Congestion Cardiovascular: Denies: Chest Pain Respiratory: Denies: Cough, Shortness of Breath Musculoskeletal: Reports: Leg Pain - right leg pain Skin: Reports: Wounds - right medial calf wound that is opened, with necrotic tissue present. Surrounding wound is erythematous, firm and very tender to palpation. Neurological: Denies: Balance problems Psychiatric: Reports: Anxiety - Physical Exam Vital Signs Temp Pulse Resp BP 96.8 F L 67 18 147/106 H 04/02/19 12:53 04/02/19 12:53 04/02/19 12:53 04/02/19 12:53 General: Alert, Oriented x3 HEENT: Atraumatic Oral: Moist Mucosa Lungs: Normal air movement Cardiovascular: Regular rate Abdomen: Obese Extremities: Capillary Refill Less than 3 Seconds, Diminished Peripheral Pulses, Edema Skin: Ulcer/ Wound - Right medial calf wound Wound Measurements and Assessment WC - Nurse 1 - General Ulcer Measurement Start: 04/02/19 12:45 Freq: Status: Active Protocol: Activity Type Activity Date Activity User E-Sign Co-Sign Detail Recorded Client Recorded Date Recorded By Document 04/02/19 12:53 DL [id number] 04/02/19 13:12 DL 04/02/19 12:53 Wound Center Nurse 1 [Ulcer Assessment] #1 R Lower Medial -Current Size (cm) - Length 2.3 -Current Size (cm) - Width 2.4 -Current Size (cm) - Depth 0.7 -Total Square Cm 5.52 -Photo Taken Yes -Exudate Amt Medium -Exudate Type Serosanguineous -Wound Margin Indistinct, Non -Visible -Granulation Amt Small (1-33%) -Granulation Quality Red -Necrosis Amt Large (67-100%) -Necrotic Tissue Type Adherent Slough -Structure Exposed N/A -Texture (Sayra-wound Skin Appearance) Localized Edema -Moisture (Sayra-wound Skin Appearance No Abnormality ) -Color (Sayra-wound Skin Appearance) Ecchymosis, Erythema -Temperature (Sayra-wound Skin No Abnormality Appearance) (Pt Warm) -Tenderness on Palpation (Sayra-wound No Skin Appearance) -Ulcer Cleansing Rinsed/ Irrigated with Saline -Foul Odor after Cleansing No -Anesthetic Used 5% Lidocaine Gel [Edema Assessment] -Right Calf (cm) 44 -Right Ankle (cm) 25.5 WC - Nurse 2 - General Ulcer CM Notes Start: 04/02/19 12:45 Freq: Status: Active Protocol: Activity Type Activity Date Activity User E-Sign Co-Sign Detail Recorded Client Recorded Date Recorded By Document 04/02/19 13:45 MW [id number] 04/02/19 13:50 MW 04/02/19 13:45 Wound Center Nurse 2 [Procedure/Treatment] #1 R Lower Medial -Time 13:46 -Correct Patient Yes -Correct Side, Site, Position Yes -Correct Procedure Yes -Procedure Performed No -Wound/Ulcer Outcome Not Healed -Ulcer Cleansing Rinsed/ Irrigated with Saline -Foul Odor after Cleansing No -Bioengineered Tissue No -Bleeding Controlled with NA -Offloading No -Treatment Response Procedure Tolerated Well [See Physician Procedure note for Specifics] Pain Scale: 0-10 Numeric [Pain] -Is Patient Pain Free? Yes Musculoskeletal: No Tenderness to Palpation of Joints or Extremities Neurological: Neuro grossly intact Psych/Mental Status: Normal Affect, Appropriate Debridement Note Post-Debridement Measurements/Treatment - Nurse 2 - General Ulcer CM Notes Start: 04/02/19 12:45 Freq: Status: Active Protocol: Activity Type Activity Date Activity User E-Sign Co-Sign Detail Recorded Client Recorded Date Recorded By Document 04/02/19 13:45 MW [id number] 04/02/19 13:50 MW 04/02/19 13:45 Wound Center Nurse 2 #1 R Lower Medial -Time 13:46 -Correct Patient Yes -Correct Side, Site, Position Yes -Correct Procedure Yes -Procedure Performed No -Wound/Ulcer Outcome Not Healed -Ulcer Cleansing Rinsed/ Irrigated with Saline -Foul Odor after Cleansing No -Bioengineered Tissue No -Bleeding Controlled with NA -Offloading No -Treatment Response Procedure Tolerated Well Pain Scale: 0-10 Numeric Is Patient Pain Free? Yes No debridement was completed today Assessment/Plan Active Problems Traumatic open wound of right lower leg with infection (Acute) Dog bite of calf (Acute) DM type 2 (diabetes mellitus, type 2) (Chronic) Assessment: 1. Traumatic open wound of right lower leg with infection. 2. Dog bite of calf. 3. DM type 2 (diabetes mellitus, type 2) Plan: Although his PCP, Dr. Pruitt has been giving him antibiotics, I have referred him to the ED for further evaluation. He is having issues standing due to the severity of the pain in his right leg. We are unable to touch the wound to be able to evaluate it closer and there is significant amount of redness and firmness surrounding the wound. He may need a surgical debridement. Code Visit Office Visits / Consults: [id number] OV L3 Est
[2019-04-09 15:45] VITALS: BP 140/87; PULSE 69; RESP 22; TEMP 35.9; BMI 40.6
--- NOTE | 2019-04-09 17:57 | PCM.WC.PN ---
(1) Ulcer of right leg Status: Chronic Current Visit: Yes Code(s): L97.919 - Non-pressure chronic ulcer of unspecified part of right lower leg with unspecified severity (2) Dog bite of calf Status: Acute Current Visit: Yes Code(s): S81.859A - Open bite, unspecified lower leg, initial encounter; W54.0XXA - Bitten by dog, initial encounter (3) DM type 2 (diabetes mellitus, type 2) Status: Chronic Current Visit: Yes Code(s): E11.9 - Type 2 diabetes mellitus without complications Type of Wound Date of Service: 04/09/19 Chief Complaint: Dog bite to right medial calf History of Wound: Patient was bit by his dog approximately 2 weeks ago. He initially saw his PCP. His PCP has been giving him IV antibiotics daily in his office. He was referred here for debridement of the right calf wound which is extremely tender to palpation and erythematous around the wound and very firm. Patient was referred to the ED where he was admitted. Om 04/03/19 he had surgical preparation right proximal medial calf with incision and drainage and excisional debridement dog bite infected abscess (108 cm2). Wound care is wound VAC. He denies any fevers or nausea. His appetite is ok. Progress of Wound: Stable - Physical Exam Vital Signs Temp Pulse Resp BP 96.6 F L 69 22 H 140/87 H 04/09/19 15:45 04/09/19 15:45 04/09/19 15:45 04/09/19 15:45 General: Alert, Oriented x3 HEENT: Atraumatic Oral: Moist Mucosa Lungs: Normal air movement Cardiovascular: Regular rate Abdomen: Soft Skin: Ulcer/ Wound - Right medial leg Wound Measurements and Assessment WC - Nurse 1 - General Ulcer Measurement Start: 04/02/19 12:45 Freq: Status: Active Protocol: Activity Type Activity Date Activity User E-Sign Co-Sign Detail Recorded Client Recorded Date Recorded By Document 04/09/19 15:45 DL [id number] 04/09/19 15:58 DL 04/09/19 15:45 Wound Center Nurse 1 [Ulcer Assessment] #1 R Lower Medial, Surgical debridment -Current Size (cm) - Length 8 -Current Size (cm) - Width 11.8 -Current Size (cm) - Depth 1 -Total Square Cm 94.4 -Photo Taken Yes -Exudate Amt Medium -Exudate Type Serosanguineous -Wound Margin Distinct, Outline Attached -Granulation Amt Large (67-100%) -Granulation Quality Red -Necrosis Amt Small (1-33%) -Necrotic Tissue Type Adherent Slough -Structure Exposed Fat Layer Exposed -Texture (Sayra-wound Skin Appearance) Localized Edema ,Scarring -Moisture (Sayra-wound Skin Appearance No Abnormality ) -Color (Sayra-wound Skin Appearance) Erythema,Rubor -Temperature (Sayra-wound Skin No Abnormality Appearance) (Pt Warm) -Tenderness on Palpation (Sayra-wound Yes Skin Appearance) -Ulcer Cleansing Wound Cleanser -Foul Odor after Cleansing No -Anesthetic Used 4% Lidocaine Solution WC - Nurse 2 - General Ulcer CM Notes Start: 04/02/19 12:45 Freq: Status: Active Protocol: Activity Type Activity Date Activity User E-Sign Co-Sign Detail Recorded Client Recorded Date Recorded By Document 04/09/19 17:14 MW [id number] 04/09/19 17:17 MW 04/09/19 17:14 Wound Center Nurse 2 [Procedure/Treatment] -Time 17:14 -Correct Patient Yes -Correct Side, Site, Position Yes -Correct Procedure Yes -Procedure Performed Yes -Type of Procedure Debridement -Clinical Debridement Subcutaneous -Post Debridement Size (cm) - Length 9.8 -Post Debridement Size (cm) - Width 12.0 -Post Debridement Size (cm) - Depth 1.0 -Total Square Cm 117.60 -Wound/Ulcer Outcome Not Healed -Ulcer Cleansing Rinsed/ Irrigated with Saline -Foul Odor after Cleansing No -Bioengineered Tissue No -Bleeding Controlled with Pressure -Offloading No -Treatment Response Procedure Tolerated Well [See Physician Procedure note for Specifics] Pain Scale: 0-10 Numeric [Pain] -Is Patient Pain Free? Yes Musculoskeletal: No Tenderness to Palpation of Joints or Extremities Neurological: Neuro grossly intact Psych/Mental Status: Normal Affect, Appropriate Debridement Note Post-Debridement Measurements/Treatment - Nurse 2 - General Ulcer CM Notes Start: 04/02/19 12:45 Freq: Status: Active Protocol: Activity Type Activity Date Activity User E-Sign Co-Sign Detail Recorded Client Recorded Date Recorded By Document 04/02/19 13:45 MW [id number] 04/02/19 13:50 MW Document 04/09/19 17:14 MW [id number] 04/09/19 17:17 MW 04/02/19 04/09/19 13:45 17:14 Wound Center Nurse 2 #1 R Lower Medial, Surgical debridment -Time 13:46 17:14 -Correct Patient Yes Yes -Correct Side, Site, Position Yes Yes -Correct Procedure Yes Yes -Procedure Performed No Yes -Type of Procedure Debridement -Clinical Debridement Subcutaneous -Post Debridement Size (cm) - Length 9.8 -Post Debridement Size (cm) - Width 12.0 -Post Debridement Size (cm) - Depth 1.0 -Total Square Cm 117.60 -Wound/Ulcer Outcome Not Healed Not Healed -Ulcer Cleansing Rinsed/ Rinsed/ Irrigated with Irrigated with Saline Saline -Foul Odor after Cleansing No No -Bioengineered Tissue No No -Bleeding Controlled with NA Pressure -Offloading No No -Treatment Response Procedure Procedure Tolerated Well Tolerated Well Pain Scale: 0-10 Numeric Is Patient Pain Free? Yes Yes Wound debrided: right medial calf Laterality: Right Type of Debridement: Excisional debridement Anesthesia Used: 5% Lidocaine Gel Depth: Down to and including healthy tissue, in the subcutaneous layer Percentage of wound debrided: 100 Instrument Used: 7mm curette Tissue Removed: Subcutaneous tissue and slough Severity: Fat Layer Exposed Amount of bleeding with debridement: Mild Bleeding Controlled with: Compression and gauze Patient tolerated procedure well Assessment/Plan Active Problems Ulcer of right leg (Chronic) Dog bite of calf (Acute) DM type 2 (diabetes mellitus, type 2) (Chronic) Assessment: 1. Ulcer right medial lower leg. 2. Traumatic open wound of right lower leg with infection. 3. Dog bite of calf. 4. DM type 2 (diabetes mellitus, type 2) Plan: Patient was bit by his dog approximately 2 weeks ago. He initially saw his PCP. His PCP has been giving him IV antibiotics daily in his office. He was referred here for debridement of the right calf wound which is extremely tender to palpation and erythematous around the wound and very firm. Patient was referred to the ED where he was admitted. On 04/03/19 he had surgical preparation right proximal medial calf with incision and drainage and excisional debridement dog bite infected abscess (108 cm2). Wound care is wound VAC. He has home health. I will be out of the office for the next two Tuesdays follow up in 3 weeks. Phone with any concerns. Code Visit [id number]
== END 2019-04-17 23:59 ==
LOC: WC 15:45
PROVIDERS: Family Provider Family Medicine Geriatric Medicine; PCP Family Medicine Geriatric Medicine; Referring Provider Family Medicine Geriatric Medicine; Visit Provider Nurse Practitioner Family
DX: S81.851A Open bite, right lower leg, initial encounter (principal); W54.0XXA Bitten by dog, initial encounter; E11.9 Type 2 diabetes mellitus without complications; K21.9 Gastro-esophageal reflux disease without esophagitis; G89.4 Chronic pain syndrome; Z98.84 Bariatric surgery status; F43.12 Post-traumatic stress disorder, chronic; G43.909 Migraine, unspecified, not intractable, without status migrainosus; Z79.899 Other long term (current) drug therapy; J45.909 Unspecified asthma, uncomplicated
CPT/HCPCS: 11042; 11045; 97606; 99213; G0463; J2405

== ENCOUNTER → 2019-05-09 09:55 | Outpatient (CLI) | payer MEDICARE, MEDICAID, SELFPAY ==
[2019-05-07 13:27] VITALS: BMI 39.4
[2019-05-09 18:05] LABS: Absolute Lymphocyte Count 1.09 X10^3/uL (0.83-4.51); Absolute Neutrophil Count 4.4 X10^3/uL (2.0-7.7); Basophil# 0.05 X10^3/uL; Basophil% 0.8 % (0-1); Eosinophil# 0.25 X10^3/uL; Eosinophils% 3.9 % (0-5); Hemoglobin 13.6 g/dL (13.0-16.5); Lymphocyte # 1.09 X10^3/ul (4.0); Mean Corp Hgb Conc 32.4 g/dL (32-36); Mean Corpuscular Hgb 30.6 pg (27.0-32.0); Mean Corpuscular Volume 94.4 fL (80-94); Mean Platelet Vol. 10.1 fl (6.2-12.0); Monocyte# 0.64 X10^3/uL; NRBC Flagged by Analyzer 0 % (0-5); Neutrophil # 4.37 X10^3/uL (2.7-7.7); Neutrophil % 67.8 % (47-70); Platelet Count 292 K/mm3 (150-450); RBC Distribution Width CV 13.6 % (11.6-14.6); RBC Distribution Width SD 47.1 fl (35.1-43.9); Red Blood Count 4.45 M/mm3 (4.6-6.2); White Blood Count 6.4 K/mm3 (4.4-11.0)
[2019-05-09 18:21] LABS: ALB/GLOB Ratio 0.9 RATIO (0.9-2.4); AST(SGOT) 18 U/L (15-37); Alanine Aminotransfer ALT/SGPT 20 U/L (16-61); Albumin, Serum 3.5 g/dL (3.2-5.0); Alkaline Phosphatase 112 U/L (45-117); Anion Gap 8 (5-15); BUN 12 mg/dL (7-18); BUN/Creat Ratio 11.9 RATIO (10-20); Calcium,Total 8.9 mg/dL (8.5-10.1); Chloride 104 mmol/L (98-107); Creatinine, Serum 1.01 mg/dL (0.70-1.30); EST Glomerular Filtration Rate 80 mL/min (>60); Est Glom Filt Rate - Afr Amer 97 mL/min (>60); Globulin 4.1 g/dL (2.2-4.2); Glucose 77 mg/dL (74-106); PSA,Total - Annual Screen 0.09 ng/mL (0.00-4.00); Potassium 4.2 mmol/L (3.5-5.1); Protein, Total 7.6 g/dL (6.4-8.2); Sodium Level 139 mmol/L (136-145); Thyroid Stim Hormone (TSH) 1.21 uIU/mL (0.358-3.74)
== END ==
PROVIDERS: Family Provider Family Medicine Geriatric Medicine; PCP Family Medicine Geriatric Medicine; Visit Provider Family Medicine Geriatric Medicine
DX: R53.83 Other fatigue (principal); Z12.5 Encounter for screening for malignant neoplasm of prostate
CPT/HCPCS: 36415; 80053; 84153; 84443; 85025; G0103

== ENCOUNTER 2019-05-14 14:30 | Outpatient (RCR) | payer MEDICARE, MEDICAID, SELFPAY ==
[2019-04-18 01:13] VITALS: BP 140/87; PULSE 69; RESP 22; TEMP 35.9; BMI 39.4
[2019-04-30 13:35] VITALS: BP 138/86; PULSE 72; RESP 22; TEMP 36.9; BMI 39.4
--- NOTE | 2019-04-30 17:08 | PCM.WC.PN ---
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 (2) Necrotizing soft tissue infection Status: Acute Code(s): M79.89 - Other specified soft tissue disorders Comment: dog bite necrotizing infection abscess right proximal medial leg (3) Dog bite of right calf Status: Acute Code(s): S81.851A - Open bite, right lower leg, initial encounter; W54.0XXA - Bitten by dog, initial encounter Comment: dog bite necrotizing infection abscess right proximal medial leg (4) DM type 2 (diabetes mellitus, type 2) Status: Chronic Code(s): E11.9 - Type 2 diabetes mellitus without complications Type of Wound Date of Service: 04/30/19 Chief Complaint: Dog bite to right medial calf History of Wound: Patient was bit by his dog approximately 2 weeks ago. He initially saw his PCP. His PCP has been giving him IV antibiotics daily in his office. He was referred here for debridement of the right calf wound which is extremely tender to palpation and erythematous around the wound and very firm. Patient was referred to the ED where he was admitted. Om 04/03/19 he had surgical preparation right proximal medial calf with incision and drainage and excisional debridement dog bite infected abscess (108 cm2). Wound care is wound VAC. He denies any fevers or nausea. His appetite is ok. Progress of Wound: Stable - Physical Exam Vital Signs Temp Pulse Resp BP 98.5 F 72 22 H 138/86 H 04/30/19 13:35 04/30/19 13:35 04/30/19 13:35 04/30/19 13:35 General: Alert, Oriented x3, Cooperative HEENT: Atraumatic Oral: Moist Mucosa Lungs: Normal air movement Cardiovascular: Regular rate Extremities: Capillary Refill Less than 3 Seconds, Edema Skin: Ulcer/ Wound - Right medial leg ulcer Wound Measurements and Assessment WC - Nurse 1 - General Ulcer Measurement Start: 04/30/19 13:28 Freq: Status: Active Protocol: Activity Type Activity Date Activity User E-Sign Co-Sign Detail Recorded Client Recorded Date Recorded By Document 04/30/19 13:35 DL [id number] 04/30/19 13:42 DL 04/30/19 13:35 Wound Center Nurse 1 [Ulcer Assessment] #1 R Lower Medial, Surgical debridment -Current Size (cm) - Length 6.8 -Current Size (cm) - Width 9.6 -Current Size (cm) - Depth 0.6 -Total Square Cm 65.28 -Photo Taken No -Exudate Amt Small -Exudate Type Serosanguineous -Wound Margin Distinct, Outline Attached -Granulation Amt Large (67-100%) -Granulation Quality Red -Necrosis Amt Small (1-33%) -Necrotic Tissue Type Adherent Slough -Structure Exposed N/A -Texture (Sayra-wound Skin Appearance) Scarring -Moisture (Sayra-wound Skin Appearance No Abnormality ) -Color (Sayra-wound Skin Appearance) No Abnormality -Temperature (Sayra-wound Skin No Abnormality Appearance) (Pt Warm) -Tenderness on Palpation (Sayra-wound Yes Skin Appearance) -Ulcer Cleansing Wound Cleanser -Foul Odor after Cleansing No -Anesthetic Used 4% Lidocaine Solution WC - Nurse 2 - General Ulcer CM Notes Start: 04/30/19 13:28 Freq: Status: Active Protocol: Activity Type Activity Date Activity User E-Sign Co-Sign Detail Recorded Client Recorded Date Recorded By Document 04/30/19 14:02 [id number] 04/30/19 14:04 04/30/19 14:02 Wound Center Nurse 2 [Procedure/Treatment] -Time 14:02 -Correct Patient Yes -Correct Side, Site, Position Yes -Correct Procedure Yes -Procedure Performed Yes -Type of Procedure Debridement -Clinical Debridement Subcutaneous -Post Debridement Size (cm) - Length 7 -Post Debridement Size (cm) - Width 10 -Post Debridement Size (cm) - Depth 0.3 -Total Square Cm 70 -Wound/Ulcer Outcome Not Healed -Ulcer Cleansing Rinsed/ Irrigated with Saline -Foul Odor after Cleansing No -Bioengineered Tissue No -Bleeding Controlled with Pressure -Offloading No -Treatment Response Procedure Tolerated Well [See Physician Procedure note for Specifics] Pain Scale: 0-10 Numeric [Pain] -Is Patient Pain Free? Yes Musculoskeletal: No Tenderness to Palpation of Joints or Extremities Neurological: Neuro grossly intact Psych/Mental Status: Normal Affect, Appropriate Debridement Note Post-Debridement Measurements/Treatment WC - Nurse 2 - General Ulcer CM Notes Start: 04/30/19 13:28 Freq: Status: Active Protocol: Activity Type Activity Date Activity User E-Sign Co-Sign Detail Recorded Client Recorded Date Recorded By Document 04/30/19 14:02 [id number] 04/30/19 14:04 DEMI 04/30/19 14:02 Wound Center Nurse 2 #1 R Lower Medial, Surgical debridment -Time 14:02 -Correct Patient Yes -Correct Side, Site, Position Yes -Correct Procedure Yes -Procedure Performed Yes -Type of Procedure Debridement -Clinical Debridement Subcutaneous -Post Debridement Size (cm) - Length 7 -Post Debridement Size (cm) - Width 10 -Post Debridement Size (cm) - Depth 0.3 -Total Square Cm 70 -Wound/Ulcer Outcome Not Healed -Ulcer Cleansing Rinsed/ Irrigated with Saline -Foul Odor after Cleansing No -Bioengineered Tissue No -Bleeding Controlled with Pressure -Offloading No -Treatment Response Procedure Tolerated Well Pain Scale: 0-10 Numeric Is Patient Pain Free? Yes Wound debrided: medial leg Laterality: Right Type of Debridement: Excisional debridement Anesthesia Used: 4% Lidocaine Solution, 5% Lidocaine Gel Depth: Down to and including healthy tissue, in the subcutaneous layer, to muscle Percentage of wound debrided: 100 Instrument Used: 7mm curette Tissue Removed: Subcuataneous tissue and slough Severity: Fat Layer Exposed Amount of bleeding with debridement: Mild Bleeding Controlled with: Pressure, Compression and gauze Patient tolerated procedure well Assessment/Plan Assessment: 1. Ulcer right medial lower leg. 2. Traumatic open wound of right lower leg with infection. 3. Dog bite of calf. 4. DM type 2 (diabetes mellitus, type 2) Plan: Patient was recently bit by his dog. He initially saw his PCP. His PCP has been giving him IV antibiotics daily in his office. He was referred here for debridement of the right calf wound which is extremely tender to palpation and erythematous around the wound and very firm. Patient was referred to the ED where he was admitted. On 04/03/19 he had surgical preparation right proximal medial calf with incision and drainage and excisional debridement dog bite infected abscess (108 cm2). Wound care is wound VAC. He has home health. For his post surgical pain renewed his Percocet (28) and Valium (14). OARRS checked and no suspicious activity noted. Follow up in one week. Code Visit [id number]
[2019-05-07 13:27] VITALS: BP 128/89; PULSE 77; RESP 18; TEMP 35.9; BMI 39.4
--- NOTE | 2019-05-07 16:02 | PCM.WC.PN ---
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 He initially saw his PCP. His PCP has been giving him IV antibiotics daily in his office. He was referred here for debridement of the right calf wound which is extremely tender to palpation and erythematous around the wound and very firm. Patient was referred to the ED where he was admitted. Om 04/03/19 he had surgical preparation right proximal medial calf with incision and drainage and excisional debridement dog bite infected abscess (108 cm2). Wound care is wound VAC. Will take a a wound VAC holiday this week to see if this will help his raj-wound area. He may use silver dressing daily to the ulcer. He denies any fevers or nausea. His appetite is ok. Progress of Wound: Improved. - Physical Exam Vital Signs Temp Pulse Resp BP 96.7 F L 77 18 128/89 H 05/07/19 13:27 05/07/19 13:27 05/07/19 13:27 05/07/19 13:27 General: Alert, Oriented x3 HEENT: Atraumatic Oral: Moist Mucosa Lungs: Normal air movement Cardiovascular: Regular rate Extremities: Capillary Refill Less than 3 Seconds, Edema, Peripheral Pulses Normal Skin: Ulcer/ Wound - Right posterior/lateral leg (calf area) ulcer Wound Measurements and Assessment WC - Nurse 1 - General Ulcer Measurement Start: 04/30/19 13:28 Freq: Status: Active Protocol: Activity Type Activity Date Activity User E-Sign Co-Sign Detail Recorded Client Recorded Date Recorded By Document 05/07/19 13:27 DL [id number] 05/07/19 13:39 DL 05/07/19 13:27 Wound Center Nurse 1 [Ulcer Assessment] #1 R Lower Medial, Surgical debridment -Current Size (cm) - Length 5.5 -Current Size (cm) - Width 9.2 -Current Size (cm) - Depth 0.3 -Total Square Cm 50.60 -Photo Taken Yes -Exudate Amt Small -Exudate Type Serosanguineous -Wound Margin Distinct, Outline Attached -Granulation Amt Large (67-100%) -Granulation Quality Red -Necrosis Amt None Present (0 %) -Structure Exposed N/A -Texture (Raj-wound Skin Appearance) Excoriation, Scarring -Moisture (Raj-wound Skin Appearance No Abnormality ) -Color (Raj-wound Skin Appearance) Erythema,Rubor -Temperature (Raj-wound Skin No Abnormality Appearance) (Pt Warm) -Tenderness on Palpation (Raj-wound No Skin Appearance) -Ulcer Cleansing Wound Cleanser -Foul Odor after Cleansing No -Anesthetic Used 4% Lidocaine Solution WC - Nurse 2 - General Ulcer CM Notes Start: 04/30/19 13:28 Freq: Status: Active Protocol: Activity Type Activity Date Activity User E-Sign Co-Sign Detail Recorded Client Recorded Date Recorded By Document 05/07/19 14:01 [id number] 05/07/19 14:03 05/07/19 14:01 Wound Center Nurse 2 [Procedure/Treatment] -Time 14:01 -Correct Patient Yes -Correct Side, Site, Position Yes -Correct Procedure Yes -Procedure Performed Yes -Type of Procedure Debridement -Clinical Debridement Subcutaneous -Post Debridement Size (cm) - Length 6.4 -Post Debridement Size (cm) - Width 9.5 -Post Debridement Size (cm) - Depth 0.2 -Total Square Cm 60.80 -Wound/Ulcer Outcome Not Healed -Ulcer Cleansing Rinsed/ Irrigated with Saline -Foul Odor after Cleansing No -Bioengineered Tissue No -Bleeding Controlled with Pressure -Offloading No -Treatment Response Procedure Tolerated Well [See Physician Procedure note for Specifics] Pain Scale: 0-10 Numeric [Pain] -Is Patient Pain Free? Yes Musculoskeletal: No Tenderness to Palpation of Joints or Extremities Neurological: Neuro grossly intact Psych/Mental Status: Normal Affect, Appropriate Debridement Note Post-Debridement Measurements/Treatment WC - Nurse 2 - General Ulcer CM Notes Start: 04/30/19 13:28 Freq: Status: Active Protocol: Activity Type Activity Date Activity User E-Sign Co-Sign Detail Recorded Client Recorded Date Recorded By Document 04/30/19 14:02 [id number] 04/30/19 14:04 Document 05/07/19 14:01 [id number] 05/07/19 14:03 04/30/19 05/07/19 14:02 14:01 Wound Center Nurse 2 #1 R Lower Medial, Surgical debridment -Time 14:02 14:01 -Correct Patient Yes Yes -Correct Side, Site, Position Yes Yes -Correct Procedure Yes Yes -Procedure Performed Yes Yes -Type of Procedure Debridement Debridement -Clinical Debridement Subcutaneous Subcutaneous -Post Debridement Size (cm) - Length 7 6.4 -Post Debridement Size (cm) - Width 10 9.5 -Post Debridement Size (cm) - Depth 0.3 0.2 -Total Square Cm 70 60.80 -Wound/Ulcer Outcome Not Healed Not Healed -Ulcer Cleansing Rinsed/ Rinsed/ Irrigated with Irrigated with Saline Saline -Foul Odor after Cleansing No No -Bioengineered Tissue No No -Bleeding Controlled with Pressure Pressure -Offloading No No -Treatment Response Procedure Procedure Tolerated Well Tolerated Well Pain Scale: 0-10 Numeric Is Patient Pain Free? Yes Yes Wound debrided: Right posterior lateral calf Laterality: Right Type of Debridement: Excisional debridement Anesthesia Used: 4% Lidocaine Solution, 5% Lidocaine Gel Depth: Down to and including healthy tissue, in the subcutaneous layer Percentage of wound debrided: 100 Instrument Used: 7mm curette Tissue Removed: Subcutaneous tissue and slough Severity: Fat Layer Exposed Amount of bleeding with debridement: Mild Bleeding Controlled with: Pressure, Compression and gauze Patient tolerated procedure well Assessment/Plan Assessment: 1. Ulcer right medial lower leg. 2. Traumatic open wound of right lower leg with infection. 3. Dog bite of calf. 4. DM type 2 (diabetes mellitus, type 2) Plan: Patient was recently bit by his dog. He initially saw his PCP. His PCP has been giving him IV antibiotics daily in his office. He was referred here for debridement of the right calf wound which is extremely tender to palpation and erythematous around the wound and very firm. Patient was referred to the ED where he was admitted. On 04/03/19 he had surgical preparation right proximal medial calf with incision and drainage and excisional debridement dog bite infected abscess (108 cm2). Wound care is wound VAC. He is taking a wound VAC holiday this week to see if raj wound will heal, he has some excoriation around the ulcer from the vac drape. He will start Daily silver dressing changes. He has home health. Follow up in one week. Code Visit Post op [facility] [id number]
[2019-05-14 14:55] VITALS: BP 123/69; PULSE 68; RESP 18; TEMP 35.5; BMI 39.4
--- NOTE | 2019-05-14 17:15 | PCM.WC.PN ---
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 He initially saw his PCP. His PCP has been giving him IV antibiotics daily in his office. He was referred here for debridement of the right calf wound which is extremely tender to palpation and erythematous around the wound and very firm. Patient was referred to the ED where he was admitted. On 04/03/19 he had surgical preparation right proximal medial calf with incision and drainage and excisional debridement dog bite infected abscess (108 cm2). Wound care is wound is silver dressing daily to the ulcer. Will discontinue the VAC (he does not want the VAC back on). We will apply for Grafix advanced wound product because he would benefit from this product to help with wound healing. He denies any fevers or nausea. His appetite is ok. Progress of Wound: Improved. - Physical Exam Vital Signs Temp Pulse Resp BP 96 F L 68 18 123/69 H 05/14/19 14:55 05/14/19 14:55 05/14/19 14:55 05/14/19 14:55 General: Alert, Oriented x3, Cooperative HEENT: Atraumatic Oral: Moist Mucosa Lungs: Normal air movement Cardiovascular: Regular rate Extremities: Capillary Refill Less than 3 Seconds, Edema Skin: Ulcer/ Wound - Right posterior lower leg Wound Measurements and Assessment WC - Nurse 1 - General Ulcer Measurement Start: 04/30/19 13:28 Freq: Status: Active Protocol: Activity Type Activity Date Activity User E-Sign Co-Sign Detail Recorded Client Recorded Date Recorded By Document 05/14/19 14:55 DL [id number] 05/14/19 15:05 DL 05/14/19 14:55 Wound Center Nurse 1 [Ulcer Assessment] #1 R Lower Medial, Surgical debridment -Current Size (cm) - Length 6 -Current Size (cm) - Width 9.6 -Current Size (cm) - Depth 0.1 -Total Square Cm 57.6 -Photo Taken No -Exudate Amt Medium -Exudate Type Serosanguineous -Wound Margin Distinct, Outline Attached -Granulation Amt Large (67-100%) -Granulation Quality Hyper- granulation,Red -Necrosis Amt Small (1-33%) -Necrotic Tissue Type Adherent Slough -Structure Exposed N/A -Texture (Raj-wound Skin Appearance) Excoriation, Scarring -Moisture (Raj-wound Skin Appearance No Abnormality ) -Color (Raj-wound Skin Appearance) Rubor -Temperature (Raj-wound Skin No Abnormality Appearance) (Pt Warm) -Tenderness on Palpation (Raj-wound No Skin Appearance) -Ulcer Cleansing Wound Cleanser -Foul Odor after Cleansing No -Anesthetic Used 4% Lidocaine Solution [Edema Assessment] -Right Calf (cm) 42.5 -Right Ankle (cm) 24 WC - Nurse 2 - General Ulcer CM Notes Start: 04/30/19 13:28 Freq: Status: Active Protocol: Activity Type Activity Date Activity User E-Sign Co-Sign Detail Recorded Client Recorded Date Recorded By Document 05/14/19 15:45 DEMI [id number] 05/14/19 15:47 DEMI 05/14/19 15:45 Wound Center Nurse 2 [Procedure/Treatment] #1 R Lower Medial, Surgical debridment -Time 15:46 -Correct Patient Yes -Correct Side, Site, Position Yes -Correct Procedure Yes -Procedure Performed Yes -Type of Procedure Debridement -Clinical Debridement Subcutaneous -Post Debridement Size (cm) - Length 6 -Post Debridement Size (cm) - Width 10.5 -Post Debridement Size (cm) - Depth 0.1 -Total Square Cm 63.0 -Wound/Ulcer Outcome Not Healed -Ulcer Cleansing Rinsed/ Irrigated with Saline -Foul Odor after Cleansing No -Bioengineered Tissue No -Bleeding Controlled with Pressure -Offloading No -Treatment Response Procedure Tolerated Well [See Physician Procedure note for Specifics] Pain Scale: 0-10 Numeric [Pain] -Is Patient Pain Free? Yes Musculoskeletal: No Tenderness to Palpation of Joints or Extremities Neurological: Neuro grossly intact Psych/Mental Status: Normal Affect, Appropriate Debridement Note Post-Debridement Measurements/Treatment WC - Nurse 2 - General Ulcer CM Notes Start: 04/30/19 13:28 Freq: Status: Active Protocol: Activity Type Activity Date Activity User E-Sign Co-Sign Detail Recorded Client Recorded Date Recorded By Document 04/30/19 14:02 [id number] 04/30/19 14:04 Document 05/07/19 14:01 [id number] 05/07/19 14:03 Document 05/14/19 15:45 [id number] 05/14/19 15:47 04/30/19 05/07/19 05/14/19 14:02 14:01 15:45 Wound Center Nurse 2 #1 R Lower Medial, Surgical debridment -Time 14:02 14:01 15:46 -Correct Patient Yes Yes Yes -Correct Side, Site, Position Yes Yes Yes -Correct Procedure Yes Yes Yes -Procedure Performed Yes Yes Yes -Type of Procedure Debridement Debridement Debridement -Clinical Debridement Subcutaneous Subcutaneous Subcutaneous -Post Debridement Size (cm) - Length 7 6.4 6 -Post Debridement Size (cm) - Width 10 9.5 10.5 -Post Debridement Size (cm) - Depth 0.3 0.2 0.1 -Total Square Cm 70 60.80 63.0 -Wound/Ulcer Outcome Not Healed Not Healed Not Healed -Ulcer Cleansing Rinsed/ Rinsed/ Rinsed/ Irrigated with Irrigated with Irrigated with Saline Saline Saline -Foul Odor after Cleansing No No No -Bioengineered Tissue No No No -Bleeding Controlled with Pressure Pressure Pressure -Offloading No No No -Treatment Response Procedure Procedure Procedure Tolerated Well Tolerated Well Tolerated Well Pain Scale: 0-10 Numeric Is Patient Pain Free? 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 Ulcer right medial lower leg. 2. Traumatic open wound of right lower leg with infection. 3. Dog bite of calf. 4. DM type 2 (diabetes mellitus, type 2) Plan: Patient was recently bit by his dog. He initially saw his PCP. His PCP was giving him IV antibiotics daily in his office. He was referred here for debridement of the right calf wound which is extremely tender to palpation and erythematous around the wound and very firm. Patient was referred to the ED where he was admitted. On 04/03/19 he had surgical preparation right proximal medial calf with incision and drainage and excisional debridement dog bite infected abscess (108 cm2). Wound care: Will discontinue the VAC. The patient's raj wound looks much better and he states he does not want the VAC back on. Will Continue silver dressing and will apply for Grafix advanced wound healing product. He would benfit from having an advanced wound care product to help with wound healing. He has home health. Follow up in two weeks. Code Visit 111xxx-113xx: [id number] [place] subq tissue 20 sq cm/< Add On Codes: 19771 [place] subq tissue add-on - x3
== END 2019-05-18 23:59 ==
LOC: WC 14:30
PROVIDERS: Family Provider Family Medicine Geriatric Medicine; PCP Family Medicine Geriatric Medicine; Referring Provider Family Medicine Geriatric Medicine; Visit Provider Nurse Practitioner Family
DX: S81.851A Open bite, right lower leg, initial encounter (principal); W54.0XXA Bitten by dog, initial encounter; E11.9 Type 2 diabetes mellitus without complications; K21.9 Gastro-esophageal reflux disease without esophagitis; G89.4 Chronic pain syndrome; Z98.84 Bariatric surgery status; F43.12 Post-traumatic stress disorder, chronic; G43.909 Migraine, unspecified, not intractable, without status migrainosus; Z79.899 Other long term (current) drug therapy; J45.909 Unspecified asthma, uncomplicated
CPT/HCPCS: 11042; 11045; 97606

== ENCOUNTER 2019-06-11 15:30 | Outpatient (RCR) | payer MEDICARE, SELFPAY ==
[2019-05-19 00:59] VITALS: BP 123/69; PULSE 68; RESP 18; TEMP 35.5
[2019-05-28 14:21] VITALS: BP 115/95; PULSE 81; RESP 18; TEMP 35.2; BMI 39.4
--- NOTE | 2019-05-28 16:37 | PN.PCM_ITS ---
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 He initially saw his PCP. His PCP has been giving him IV antibiotics daily in his office. He was referred here for debridement of the right calf wound which is extremely tender to palpation and erythematous around the wound and very firm. Patient was referred to the ED where he was admitted. On 04/03/19 he had surgical preparation right proximal medial calf with incision and drainage and excisional debridement dog bite infected abscess (108 cm2). Wound care is Grafix #1 advanced wound product applied today. He denies any fevers or nausea. His appetite is ok. Progress of Wound: Improved. - Physical Exam Vital Signs Temp Pulse Resp BP 95.3 F L 81 18 115/95 H 05/28/19 14:21 05/28/19 14:21 05/28/19 14:21 05/28/19 14:21 General: Alert, Oriented x3, Cooperative HEENT: Atraumatic Oral: Moist Mucosa Lungs: Normal air movement Cardiovascular: Regular rate Extremities: Edema, Peripheral Pulses Normal Skin: Ulcer/ Wound - Right medial/posterior lower leg ulcer Wound Measurements and Assessment WC - Nurse 1 - General Ulcer Measurement Start: 05/28/19 14:21 Freq: Status: Active Protocol: Activity Type Activity Date Activity User E-Sign Co-Sign Detail Recorded Client Recorded Date Recorded By Document 05/28/19 14:21 MW [id number] 05/28/19 14:36 MW 05/28/19 14:21 Wound Center Nurse 1 [Ulcer Assessment] #1 R Lower Medial, Surgical debridment -Combined with other wound No -Current Size (cm) - Length 5.4 -Current Size (cm) - Width 8.0 -Current Size (cm) - Depth 0.1 -Total Square Cm 43.20 -Photo Taken No -Epithelialization Small 1-33% -Tunneling No -Undermining/Tunneling No -Circular Undermining No -Exudate Amt Large -Exudate Type Yellow/Green -Wound Margin Flat & Intact -Granulation Amt Large (67-100%) -Granulation Quality Hyper- granulation, [place] -Slough/Fibrin Yes -Necrosis Amt Small (1-33%) -Necrotic Tissue Type Adherent Slough -Structure Exposed N/A -Texture (Sayra-wound Skin Appearance) Assessed, Localized Edema ,Scarring -Moisture (Sayra-wound Skin Appearance No Abnormality, ) Assessed -Color (Sayra-wound Skin Appearance) No Abnormality, Rubor -Temperature (Sayra-wound Skin No Abnormality Appearance) (Pt Warm) -Tenderness on Palpation (Sayra-wound No Skin Appearance) -Ulcer Cleansing soap and water -Foul Odor after Cleansing No -Anesthetic Used 4% Lidocaine Solution,5% Lidocaine Gel [Edema Assessment] -Lower Limb Edema Present Yes -Right Calf (cm) 43.0 -Right Ankle (cm) 25.5 WC - Nurse 2 - General Ulcer CM Notes Start: 05/28/19 14:21 Freq: Status: Active Protocol: Activity Type Activity Date Activity User E-Sign Co-Sign Detail Recorded Client Recorded Date Recorded By Document 05/28/19 14:47 [id number] 05/28/19 14:56 05/28/19 14:47 Wound Center Nurse 2 [Procedure/Treatment] #1 R Lower Medial, Surgical debridment -Time 14:53 -Correct Patient Yes -Correct Side, Site, Position Yes -Correct Procedure Yes -Procedure Performed Yes -Type of Procedure Debridement -Clinical Debridement Subcutaneous -Post Debridement Size (cm) - Length 5.2 -Post Debridement Size (cm) - Width 8.3 -Post Debridement Size (cm) - Depth 0.1 -Total Square Cm 43.16 -Wound/Ulcer Outcome Not Healed -Ulcer Cleansing Rinsed/ Irrigated with Saline -Foul Odor after Cleansing No -Bioengineered Tissue Yes -Type of bioengineered Tissue GRAFIX-Core -Expiration Date 03/06/20 -Product Lot Number [id number] -Percent Used 100 -Saline Lot Number [id number] -Bleeding Controlled with Pressure -Offloading No -Treatment Response Procedure Tolerated Well [See Physician Procedure note for Specifics] Pain Scale: 0-10 Numeric [Pain] -Is Patient Pain Free? Yes Musculoskeletal: No Tenderness to Palpation of Joints or Extremities Neurological: Neuro grossly intact Psych/Mental Status: Normal Affect, Appropriate Debridement Note Post-Debridement Measurements/Treatment WC - Nurse 2 - General Ulcer CM Notes Start: 05/28/19 14:21 Freq: Status: Active Protocol: Activity Type Activity Date Activity User E-Sign Co-Sign Detail Recorded Client Recorded Date Recorded By Document 05/28/19 14:47 [id number] 05/28/19 14:56 05/28/19 14:47 Wound Center Nurse 2 #1 R Lower Medial, Surgical debridment -Time 14:53 -Correct Patient Yes -Correct Side, Site, Position Yes -Correct Procedure Yes -Procedure Performed Yes -Type of Procedure Debridement -Clinical Debridement Subcutaneous -Post Debridement Size (cm) - Length 5.2 -Post Debridement Size (cm) - Width 8.3 -Post Debridement Size (cm) - Depth 0.1 -Total Square Cm 43.16 -Wound/Ulcer Outcome Not Healed -Ulcer Cleansing Rinsed/ Irrigated with Saline -Foul Odor after Cleansing No -Bioengineered Tissue Yes -Type of bioengineered Tissue GRAFIX-Core -Expiration Date 03/06/20 -Product Lot Number [id number] -Percent Used 100 -Saline Lot Number [id number] -Bleeding Controlled with Pressure -Offloading No -Treatment Response Procedure Tolerated Well Pain Scale: 0-10 Numeric Is Patient Pain Free? 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 Ulcer right medial lower leg. 2. Traumatic open wound of right lower leg with infection. 3. Dog bite of calf. 4. DM type 2 (diabetes mellitus, type 2) Plan: Patient was recently bit by his dog. He initially saw his PCP. His PCP was giving him IV antibiotics daily in his office. He was referred here for debridement of the right calf wound which is extremely tender to palpation and erythematous around the wound and very firm. Patient was referred to the ED where he was admitted. On 04/03/19 he had surgical preparation right proximal medial calf with incision and drainage and excisional debridement dog bite infected abscess (108 cm2). Wound care: Grafix advanced wound healing product #1 applied today. Used 100% of the product. Instructed patient not to get area wet and how to care for the dressing. Will apply tubigrip bilaterally. Renewed Percocet (21 tabs). [place]ARRS report reviewed. Follow up in one week. Code Visit 150xxx-152xx: [id number] Skin sub graft trnk/arm/leg
[2019-06-04 14:29] VITALS: BP 124/97; PULSE 84; RESP 16; TEMP 35.1; BMI 39.4
--- NOTE | 2019-06-04 15:40 | PN.PCM_ITS ---
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 He initially saw his PCP. His PCP has been giving him IV antibiotics daily in his office. He was referred here for debridement of the right calf wound which is extremely tender to palpation and erythematous around the wound and very firm. Patient was referred to the ED where he was admitted. On 04/03/19 he had surgical preparation right proximal medial calf with incision and drainage and excisional debridement dog bite infected abscess (108 cm2). Wound care is Grafix #2 advanced wound product applied today. He denies any fevers or nausea. His appetite is ok. Progress of Wound: Improved. - Physical Exam Vital Signs Temp Pulse Resp BP 95.1 F L 84 16 124/97 H 06/04/19 14:29 06/04/19 14:29 06/04/19 14:29 06/04/19 14:29 General: Alert, Oriented x3, Cooperative HEENT: Atraumatic Oral: Moist Mucosa Lungs: Normal air movement Cardiovascular: Regular Rhythm Extremities: Capillary Refill Less than 3 Seconds, Edema, Peripheral Pulses Normal Skin: Ulcer/ Wound - right medial posterior calf ulcer Wound Measurements and Assessment - Nurse 1 - General Ulcer Measurement Start: 05/28/19 14:21 Freq: Status: Active Protocol: Activity Type Activity Date Activity User E-Sign Co-Sign Detail Recorded Client Recorded Date Recorded By Document 06/04/19 14:29 [facility] [id number] 06/04/19 14:39 [facility] 06/04/19 14:29 Wound Center Nurse 1 [Ulcer Assessment] #1 R Lower Medial, Surgical debridment -Combined with other wound No -Current Size (cm) - Length 4.1 -Current Size (cm) - Width 7 -Current Size (cm) - Depth 0.1 -Total Square Cm 28.7 -Photo Taken No -Epithelialization Small 1-33% -Tunneling No -Undermining/Tunneling No -Circular Undermining No -Exudate Amt Large -Exudate Type Serosanguineous -Wound Margin Distinct, Outline Attached -Granulation Amt Large (67-100%) -Granulation Quality Red -Slough/Fibrin No -Necrosis Amt None Present (0 %) -Texture (Sayra-wound Skin Appearance) Assessed, Scarring -Moisture (Sayra-wound Skin Appearance Assessed,Dry/ ) Scaly -Color (Sayra-wound Skin Appearance) Assessed -Temperature (Sayra-wound Skin No Abnormality Appearance) (Pt Warm) -Tenderness on Palpation (Sayra-wound No Skin Appearance) -Ulcer Cleansing soap and water -Foul Odor after Cleansing No -Anesthetic Used 4% Lidocaine Solution [Edema Assessment] -Lower Limb Edema Present Yes -Right Calf (cm) 42.7 -Right Ankle (cm) 25.1 WC - Nurse 2 - General Ulcer CM Notes Start: 05/28/19 14:21 Freq: Status: Active Protocol: Activity Type Activity Date Activity User E-Sign Co-Sign Detail Recorded Client Recorded Date Recorded By Document 06/04/19 14:55 [id number] 06/04/19 14:57 06/04/19 14:55 Wound Center Nurse 2 [Procedure/Treatment] #1 R Lower Medial, Surgical debridment -Time 14:56 -Correct Patient Yes -Correct Side, Site, Position Yes -Correct Procedure Yes -Procedure Performed Yes -Type of Procedure Debridement -Clinical Debridement Subcutaneous -Post Debridement Size (cm) - Length 4.4 -Post Debridement Size (cm) - Width 6.2 -Post Debridement Size (cm) - Depth 0.1 -Total Square Cm 27.28 -Wound/Ulcer Outcome Not Healed -Ulcer Cleansing Rinsed/ Irrigated with Saline -Foul Odor after Cleansing No -Bioengineered Tissue Yes -Type of bioengineered Tissue GRAADAMX-Pime -Expiration Date 09/24/19 -Product Lot Number [id number] -Percent Used 100 -Saline Lot Number [id number] -Bleeding Controlled with Pressure -Offloading No -Treatment Response Procedure Tolerated Well [See Physician Procedure note for Specifics] Pain Scale: 0-10 Numeric [Pain] -Is Patient Pain Free? Yes Musculoskeletal: No Tenderness to Palpation of Joints or Extremities Neurological: Neuro grossly intact Psych/Mental Status: Normal Affect, Appropriate Debridement Note Post-Debridement Measurements/Treatment WC - Nurse 2 - General Ulcer CM Notes Start: 05/28/19 14:21 Freq: Status: Active Protocol: Activity Type Activity Date Activity User E-Sign Co-Sign Detail Recorded Client Recorded Date Recorded By Document 05/28/19 14:47 [id number] 05/28/19 14:56 Document 06/04/19 14:55 [id number] 06/04/19 14:57 05/28/19 06/04/19 14:47 14:55 Wound Center Nurse 2 #1 R Lower Medial, Surgical debridment -Time 14:53 14:56 -Correct Patient Yes Yes -Correct Side, Site, Position Yes Yes -Correct Procedure Yes Yes -Procedure Performed Yes Yes -Type of Procedure Debridement Debridement -Clinical Debridement Subcutaneous Subcutaneous -Post Debridement Size (cm) - Length 5.2 4.4 -Post Debridement Size (cm) - Width 8.3 6.2 -Post Debridement Size (cm) - Depth 0.1 0.1 -Total Square Cm 43.16 27.28 -Wound/Ulcer Outcome Not Healed Not Healed -Ulcer Cleansing Rinsed/ Rinsed/ Irrigated with Irrigated with Saline Saline -Foul Odor after Cleansing No No -Bioengineered Tissue Yes Yes -Type of bioengineered Tissue GRAFIX-Core GRAFIX-Pime -Expiration Date 03/06/20 09/24/19 -Product Lot Number [id number] -Percent Used 100 100 -Saline Lot Number [id number] -Bleeding Controlled with Pressure Pressure -Offloading No No -Treatment Response Procedure Procedure Tolerated Well Tolerated Well Pain Scale: 0-10 Numeric Is Patient Pain Free? 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 Ulcer right medial lower leg. 2. Traumatic open wound of right lower leg with infection. 3. Dog bite of calf. 4. DM type 2 (diabetes mellitus, type 2) Plan: Patient was recently bit by his dog. He initially saw his PCP. His PCP was giving him IV antibiotics daily in his office. He was referred here for debridement of the right calf wound which is extremely tender to palpation and erythematous around the wound and very firm. Patient was referred to the ED where he was admitted. On 04/03/19 he had surgical preparation right proximal medial calf with incision and drainage and excisional debridement dog bite infected abscess (108 cm2). Wound care: Grafix PL advanced wound healing product #2 applied today. Used 100% of the product. Instructed patient not to get area wet and how to care for the dressing. Will apply tubigrip bilaterally. Follow up in one week. Code Visit [id number]: [id number] Skin sub graft trnk/arm/leg
[2019-06-11 15:45] VITALS: BP 132/90; PULSE 78; RESP 16; TEMP 35.2; BMI 39.4
--- NOTE | 2019-06-11 17:07 | PN.PCM_ITS ---
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 He initially saw his PCP. His PCP has been giving him IV antibiotics daily in his office. He was referred here for debridement of the right calf wound which is extremely tender to palpation and erythematous around the wound and very firm. Patient was referred to the ED where he was admitted. On 04/03/19 he had surgical preparation right proximal medial calf with incision and drainage and excisional debridement dog bite infected abscess (108 cm2). Wound care is Grafix #3 advanced wound product applied today. He denies any fevers or nausea. His appetite is ok. Progress of Wound: Improved. - Physical Exam Vital Signs Temp Pulse Resp BP 95.3 F L 78 16 132/90 H 06/11/19 15:45 06/11/19 15:45 06/11/19 15:45 06/11/19 15:45 General: Alert, Oriented x3, Cooperative HEENT: Atraumatic Oral: Moist Mucosa Lungs: Normal air movement Cardiovascular: Regular rate Extremities: Capillary Refill Less than 3 Seconds, Edema, Peripheral Pulses Normal Skin: Ulcer/ Wound - right medial posterior leg Wound Measurements and Assessment WC - Nurse 1 - General Ulcer Measurement Start: 05/28/19 14:21 Freq: Status: Active Protocol: Activity Type Activity Date Activity User E-Sign Co-Sign Detail Recorded Client Recorded Date Recorded By Document 06/11/19 15:45 [facility] [id number] 06/11/19 15:53 [facility] 06/11/19 15:45 Wound Center Nurse 1 [Ulcer Assessment] #1 R Lower Medial, Surgical debridment -Combined with other wound No -Current Size (cm) - Length 4 -Current Size (cm) - Width 6.9 -Current Size (cm) - Depth 0.1 -Total Square Cm 27.6 -Photo Taken No -Epithelialization Small 1-33% -Tunneling No -Undermining/Tunneling No -Circular Undermining No -Exudate Amt Medium -Exudate Type Serosanguineous -Wound Margin Distinct, Outline Attached -Granulation Amt Large (67-100%) -Granulation Quality Hyper- granulation,Red -Slough/Fibrin No -Necrosis Amt None Present (0 %) -Texture (Sayra-wound Skin Appearance) Assessed, Scarring -Moisture (Sayra-wound Skin Appearance Assessed,Dry/ ) Scaly -Color (Sayra-wound Skin Appearance) No Abnormality -Temperature (Sayra-wound Skin No Abnormality Appearance) (Pt Warm) -Tenderness on Palpation (Sayra-wound No Skin Appearance) -Ulcer Cleansing soap and water -Foul Odor after Cleansing No -Anesthetic Used 5% Lidocaine Gel [Edema Assessment] -Lower Limb Edema Present Yes -Right Calf (cm) 42.1 -Right Ankle (cm) 25.4 WC - Nurse 2 - General Ulcer CM Notes Start: 05/28/19 14:21 Freq: Status: Active Protocol: Activity Type Activity Date Activity User E-Sign Co-Sign Detail Recorded Client Recorded Date Recorded By Document 06/11/19 16:08 DEMI [id number] 06/11/19 16:16 DEMI 06/11/19 16:08 Wound Center Nurse 2 [Procedure/Treatment] #1 R Lower Medial, Surgical debridment -Time 16:08 -Correct Patient Yes -Correct Side, Site, Position Yes -Correct Procedure Yes -Procedure Performed Yes -Type of Procedure Debridement -Clinical Debridement Subcutaneous -Post Debridement Size (cm) - Length 3.8 -Post Debridement Size (cm) - Width 6.5 -Post Debridement Size (cm) - Depth 0.1 -Total Square Cm 24.70 -Wound/Ulcer Outcome Not Healed -Ulcer Cleansing Rinsed/ Irrigated with Saline -Foul Odor after Cleansing No -Bioengineered Tissue Yes -Type of bioengineered Tissue ERICA-Carlene -Expiration Date 09/18/20 -Product Lot Number [id number] -Percent Used 100 -Saline Lot Number [id number] -Bleeding Controlled with Pressure -Offloading No -Treatment Response Procedure Tolerated Well [See Physician Procedure note for Specifics] Pain Scale: 0-10 Numeric [Pain] -Is Patient Pain Free? Yes Musculoskeletal: No Tenderness to Palpation of Joints or Extremities Neurological: Neuro grossly intact Psych/Mental Status: Normal Affect, Appropriate Debridement Note Post-Debridement Measurements/Treatment WC - Nurse 2 - General Ulcer CM Notes Start: 05/28/19 14:21 Freq: Status: Active Protocol: Activity Type Activity Date Activity User E-Sign Co-Sign Detail Recorded Client Recorded Date Recorded By Document 05/28/19 14:47 [id number] 05/28/19 14:56 Document 06/04/19 14:55 [id number] 06/04/19 14:57 Document 06/11/19 16:08 [id number] 06/11/19 16:16 05/28/19 06/04/19 06/11/19 14:47 14:55 16:08 Wound Center Nurse 2 #1 R Lower Medial, Surgical debridment -Time 14:53 14:56 16:08 -Correct Patient Yes Yes Yes -Correct Side, Site, Position Yes Yes Yes -Correct Procedure Yes Yes Yes -Procedure Performed Yes Yes Yes -Type of Procedure Debridement Debridement Debridement -Clinical Debridement Subcutaneous Subcutaneous Subcutaneous -Post Debridement Size (cm) - Length 5.2 4.4 3.8 -Post Debridement Size (cm) - Width 8.3 6.2 6.5 -Post Debridement Size (cm) - Depth 0.1 0.1 0.1 -Total Square Cm 43.16 27.28 24.70 -Wound/Ulcer Outcome Not Healed Not Healed Not Healed -Ulcer Cleansing Rinsed/ Rinsed/ Rinsed/ Irrigated with Irrigated with Irrigated with Saline Saline Saline -Foul Odor after Cleansing No No No -Bioengineered Tissue Yes Yes Yes -Type of bioengineered Tissue GRAFIX-Core GRAFIX-Pime GRAFIX-Pime -Expiration Date 03/06/20 09/24/19 09/18/20 -Product Lot Number [id number] -Percent Used 100 100 100 -Saline Lot Number [id number] -Bleeding Controlled with Pressure Pressure Pressure -Offloading No No No -Treatment Response Procedure Procedure Procedure Tolerated Well Tolerated Well Tolerated Well Pain Scale: 0-10 Numeric Is Patient Pain Free? 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 Ulcer right medial lower leg. 2. Traumatic open wound of right lower leg with infection. 3. Dog bite of calf. 4. DM type 2 (diabetes mellitus, type 2) Plan: Patient was recently bit by his dog. He initially saw his PCP. His PCP was giving him IV antibiotics daily in his office. He was referred here for debridement of the right calf wound which is extremely tender to palpation and erythematous around the wound and very firm. Patient was referred to the ED where he was admitted. On 04/03/19 he had surgical preparation right proximal medial calf with incision and drainage and excisional debridement dog bite infected abscess (108 cm2). Wound care: Grafix advanced wound healing product #3 applied today. Used 100% of the product. Instructed patient not to get area wet and how to care for the dressing. Will apply tubigrip bilaterally for compression. Follow up in one week. Code Visit 150xxx-152xx: [id number] Skin sub graft trnk/arm/leg
== END 2019-06-17 23:59 ==
LOC: WC 15:30
PROVIDERS: Family Provider Family Medicine Geriatric Medicine; PCP Family Medicine Geriatric Medicine; Referring Provider Family Medicine Geriatric Medicine; Visit Provider Nurse Practitioner Family
DX: S81.851A Open bite, right lower leg, initial encounter (principal); W54.0XXA Bitten by dog, initial encounter; E11.9 Type 2 diabetes mellitus without complications; G89.4 Chronic pain syndrome
CPT/HCPCS: 15271; Q4132; Q4133

== ENCOUNTER 2019-07-16 14:45 | Outpatient (RCR) | payer MEDICARE, SELFPAY ==
[2019-06-18 00:53] VITALS: BP 132/90; PULSE 78; RESP 16; TEMP 35.2
--- NOTE | 2019-06-18 14:35 | PCM.WC.PN ---
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 He initially saw his PCP. His PCP has been giving him IV antibiotics daily in his office. He was referred here for debridement of the right calf wound which is extremely tender to palpation and erythematous around the wound and very firm. Patient was referred to the ED where he was admitted. On 04/03/19 he had surgical preparation right proximal medial calf with incision and drainage and excisional debridement dog bite infected abscess (108 cm2). Wound care is Grafix #4 advanced wound product applied today. He denies any fevers or nausea. His appetite is ok. Progress of Wound: Improved. - Physical Exam Vital Signs Temp Pulse Resp BP 95.3 F L 78 16 132/90 H 06/18/19 00:53 06/18/19 00:53 06/18/19 00:53 06/18/19 00:53 General: Alert, Oriented x3, Cooperative HEENT: Atraumatic Oral: Moist Mucosa Lungs: Normal air movement Cardiovascular: Regular rate Extremities: Capillary Refill Less than 3 Seconds, Peripheral Pulses Normal Skin: Ulcer/ Wound - Ulcer of right medial lower leg Musculoskeletal: No Tenderness to Palpation of Joints or Extremities Neurological: Neuro grossly intact Psych/Mental Status: Normal Affect, Appropriate Debridement Note Wound debrided: Lower medial leg Laterality: Right Type of Debridement: Excisional debridement Anesthesia Used: 4% Lidocaine Solution, 5% Lidocaine Gel Depth: Down to and including healthy tissue, in the subcutaneous layer Percentage of wound debrided: 100 Instrument Used: 7mm curette Tissue Removed: Subcutaneous tissue and slough Severity: Fat Layer Exposed Amount of bleeding with debridement: Moderate Bleeding Controlled with: Pressure, Compression and gauze Patient tolerated procedure well Assessment/Plan Active Problems 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 Ulcer right medial lower leg. 2. Traumatic open wound of right lower leg with infection. 3. Dog bite of calf. 4. DM type 2 (diabetes mellitus, type 2) Plan: Patient was recently bit by his dog. He initially saw his PCP. His PCP was giving him IV antibiotics daily in his office. He was referred here for debridement of the right calf wound which is extremely tender to palpation and erythematous around the wound and very firm. Patient was referred to the ED where he was admitted. On 04/03/19 he had surgical preparation right proximal medial calf with incision and drainage and excisional debridement dog bite infected abscess (108 cm2). Wound care: Grafix advanced wound healing product #4 applied today. Used 100% of the product. Instructed patient not to get area wet and how to care for the dressing. Will apply tubigrip bilaterally for compression. Follow up in one week. Code Visit 150xxx-152xx: [id number] Skin sub graft trnk/arm/leg
[2019-06-18 14:37] VITALS: BP 120/81; PULSE 98; RESP 18; TEMP 35.5; BMI 39.4
[2019-06-25 14:15] VITALS: BP 128/85; PULSE 89; RESP 18; TEMP 35.5; BMI 39.4
--- NOTE | 2019-06-25 15:38 | PN.PCM_ITS ---
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 He initially saw his PCP. His PCP has been giving him IV antibiotics daily in his office. He was referred here for debridement of the right calf wound which is extremely tender to palpation and erythematous around the wound and very firm. Patient was referred to the ED where he was admitted. On 04/03/19 he had surgical preparation right proximal medial calf with incision and drainage and excisional debridement dog bite infected abscess (108 cm2). Wound care is Grafix #5 advanced wound product applied today. He denies any fevers or nausea. His appetite is ok. Progress of Wound: Improved. - Physical Exam Vital Signs Temp Pulse Resp BP 96 F L 89 18 128/85 H 06/25/19 14:15 06/25/19 14:15 06/25/19 14:15 06/25/19 14:15 General: Alert, Oriented x3, Cooperative HEENT: Atraumatic Oral: Moist Mucosa Lungs: Normal air movement Cardiovascular: Regular rate Abdomen: Soft Extremities: Diminished Peripheral Pulses, Edema Skin: Ulcer/ Wound - right medial proximal lower leg Wound Measurements and Assessment WC - Nurse 1 - General Ulcer Measurement Start: 06/18/19 14:36 Freq: Status: Active Protocol: Activity Type Activity Date Activity User E-Sign Co-Sign Detail Recorded Client Recorded Date Recorded By Document 06/25/19 14:15 [facility] [id number] 06/25/19 14:21 [facility] 06/25/19 14:15 Wound Center Nurse 1 [Ulcer Assessment] #1 R Lower Medial, Surgical debridment -Combined with other wound No -Current Size (cm) - Length 3 -Current Size (cm) - Width 6.4 -Current Size (cm) - Depth 0.1 -Total Square Cm 19.2 -Photo Taken No -Epithelialization Small 1-33% -Tunneling No -Undermining/Tunneling No -Circular Undermining No -Exudate Amt Medium -Exudate Type Serosanguineous -Wound Margin Distinct, Outline Attached -Granulation Amt Large (67-100%) -Granulation Quality Hyper- granulation,Red -Slough/Fibrin Yes -Necrosis Amt Small (1-33%) -Necrotic Tissue Type Adherent Slough -Texture (Sayra-wound Skin Appearance) Assessed, Localized Edema ,Scarring -Moisture (Sayra-wound Skin Appearance Assessed,Dry/ ) Scaly -Color (Sayra-wound Skin Appearance) Assessed -Temperature (Sayra-wound Skin No Abnormality Appearance) (Pt Warm) -Tenderness on Palpation (Sayra-wound No Skin Appearance) -Ulcer Cleansing Not Cleansed -Anesthetic Used 4% Lidocaine Solution [Edema Assessment] -Lower Limb Edema Present Yes -Right Calf (cm) 42 -Right Ankle (cm) 24.5 Musculoskeletal: No Tenderness to Palpation of Joints or Extremities Neurological: Neuro grossly intact Psych/Mental Status: Normal Affect, Appropriate Debridement Note Post-Debridement Measurements/Treatment WC - Nurse 2 - General Ulcer CM Notes Start: 06/18/19 14:36 Freq: Status: Active Protocol: Activity Type Activity Date Activity User E-Sign Co-Sign Detail Recorded Client Recorded Date Recorded By Document 06/18/19 14:55 [id number] 06/18/19 15:02 06/18/19 14:55 Wound Center Nurse 2 #1 R Lower Medial, Surgical debridment -Time 15:00 -Correct Patient Yes -Correct Side, Site, Position Yes -Correct Procedure Yes -Procedure Performed Yes -Type of Procedure Debridement -Clinical Debridement Subcutaneous -Post Debridement Size (cm) - Length 3.5 -Post Debridement Size (cm) - Width 6.5 -Post Debridement Size (cm) - Depth 0.1 -Total Square Cm 22.75 -Wound/Ulcer Outcome Not Healed -Ulcer Cleansing Rinsed/ Irrigated with Saline -Foul Odor after Cleansing No -Bioengineered Tissue Yes -Type of bioengineered Tissue GRAFIX-Pime -Expiration Date 11/21/19 -Product Lot Number [id number] -Percent Used 100 -Other [id number] saline -Offloading No -Treatment Response Procedure Tolerated Well Pain Scale: 0-10 Numeric Is Patient Pain Free? 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 Ulcer right medial lower leg. 2. Traumatic open wound of right lower leg with infection. 3. Dog bite of calf. 4. DM type 2 (diabetes mellitus, type 2) Plan: Patient was recently bit by his dog. He initially saw his PCP. His PCP was giving him IV antibiotics daily in his office. He was referred here for debridement of the right calf wound which is extremely tender to palpation and erythematous around the wound and very firm. Patient was referred to the ED where he was admitted. On 04/03/19 he had surgical preparation right proximal medial calf with incision and drainage and excisional debridement dog bite infected abscess (108 cm2). Wound care: Grafix advanced wound healing product #5 applied today. Used 100% of the product. Instructed patient not to get area wet and how to care for the dressing. Will apply tubigrip bilaterally for compression. Follow up in one week. Code Visit 150xxx-152xx: [id number] Skin sub graft trnk/arm/leg
[2019-07-02 15:18] VITALS: BP 144/92; PULSE 64; RESP 18; TEMP 35.4; BMI 39.4
--- NOTE | 2019-07-02 17:05 | PCM.WC.PN ---
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 He initially saw his PCP. His PCP has been giving him IV antibiotics daily in his office. He was referred here for debridement of the right calf wound which is extremely tender to palpation and erythematous around the wound and very firm. Patient was referred to the ED where he was admitted. On 04/03/19 he had surgical preparation right proximal medial calf with incision and drainage and excisional debridement dog bite infected abscess (108 cm2). Wound care is Grafix #6 advanced wound product applied today. He denies any fevers or nausea. His appetite is ok. Progress of Wound: Improved. - Physical Exam Vital Signs Temp Pulse Resp BP 95.7 F L 64 18 144/92 H 07/02/19 15:18 07/02/19 15:18 07/02/19 15:18 07/02/19 15:18 General: Alert, Oriented x3, Cooperative HEENT: Atraumatic Oral: Moist Mucosa Lungs: Normal air movement Cardiovascular: Regular rate Extremities: Capillary Refill Less than 3 Seconds, Edema Skin: Ulcer/ Wound - right medial lower calf Wound Measurements and Assessment WC - Nurse 1 - General Ulcer Measurement Start: 06/18/19 14:36 Freq: Status: Active Protocol: Activity Type Activity Date Activity User E-Sign Co-Sign Detail Recorded Client Recorded Date Recorded By Document 07/02/19 15:18 MW [id number] 07/02/19 15:23 MW 07/02/19 15:18 Wound Center Nurse 1 [Ulcer Assessment] #1 R Lower Medial, Surgical debridment -Combined with other wound No -Current Size (cm) - Length 2.6 -Current Size (cm) - Width 5.0 -Current Size (cm) - Depth 0.1 -Total Square Cm 13.00 -Photo Taken No -Epithelialization Small 1-33% -Tunneling No -Undermining/Tunneling No -Circular Undermining No -Exudate Amt Medium -Exudate Type Serosanguineous -Wound Margin Flat & Intact -Granulation Amt Large (67-100%) -Granulation Quality Hyper- granulation,Red -Slough/Fibrin Yes -Necrosis Amt Small (1-33%) -Necrotic Tissue Type Adherent Slough -Structure Exposed N/A -Texture (Sayra-wound Skin Appearance) Assessed, Scarring -Moisture (Sayra-wound Skin Appearance Assessed,Dry/ ) Scaly -Color (Sayra-wound Skin Appearance) No Abnormality, Assessed -Temperature (Sayra-wound Skin No Abnormality Appearance) (Pt Warm) -Ulcer Cleansing soap and water -Foul Odor after Cleansing No -Anesthetic Used 5% Lidocaine Gel [Edema Assessment] -Lower Limb Edema Present Yes -Right Calf (cm) 42.7 -Right Ankle (cm) 25.0 WC - Nurse 2 - General Ulcer CM Notes Start: 06/18/19 14:36 Freq: Status: Active Protocol: Activity Type Activity Date Activity User E-Sign Co-Sign Detail Recorded Client Recorded Date Recorded By Document 07/02/19 15:57 [id number] 07/02/19 16:02 07/02/19 15:57 Wound Center Nurse 2 [Procedure/Treatment] #1 R Lower Medial, Surgical debridment -Time 15:57 -Correct Patient Yes -Correct Side, Site, Position Yes -Correct Procedure Yes -Procedure Performed Yes -Type of Procedure Debridement -Clinical Debridement Subcutaneous -Post Debridement Size (cm) - Length 2.5 -Post Debridement Size (cm) - Width 4.8 -Post Debridement Size (cm) - Depth 0.1 -Total Square Cm 12.00 -Wound/Ulcer Outcome Not Healed -Ulcer Cleansing Rinsed/ Irrigated with Saline -Foul Odor after Cleansing No -Bioengineered Tissue Yes -Type of bioengineered Tissue ERICA-Pime -Expiration Date 11/20/21 -Product Lot Number [id number] -Percent Used 100 -Saline Lot Number [id number] -Bleeding Controlled with Pressure -Offloading No -Treatment Response Procedure Tolerated Well [See Physician Procedure note for Specifics] Pain Scale: 0-10 Numeric [Pain] -Is Patient Pain Free? Yes Musculoskeletal: No Tenderness to Palpation of Joints or Extremities Neurological: Neuro grossly intact Psych/Mental Status: Normal Affect, Appropriate Debridement Note Post-Debridement Measurements/Treatment WC - Nurse 2 - General Ulcer CM Notes Start: 06/18/19 14:36 Freq: Status: Active Protocol: Activity Type Activity Date Activity User E-Sign Co-Sign Detail Recorded Client Recorded Date Recorded By Document 06/18/19 14:55 [id number] 06/18/19 15:02 Document 06/25/19 14:15 [id number] 06/26/19 12:53 MD Document 07/02/19 15:57 [id number] 07/02/19 16:02 06/18/19 06/25/19 07/02/19 14:55 14:15 15:57 Wound Center Nurse 2 #1 R Lower Medial, Surgical debridment -Time 15:00 14:15 15:57 -Correct Patient Yes Yes Yes -Correct Side, Site, Position Yes Yes Yes -Correct Procedure Yes Yes Yes -Procedure Performed Yes Yes Yes -Type of Procedure Debridement Debridement Debridement -Clinical Debridement Subcutaneous Subcutaneous Subcutaneous -Post Debridement Size (cm) - Length 3.5 2.8 2.5 -Post Debridement Size (cm) - Width 6.5 5.4 4.8 -Post Debridement Size (cm) - Depth 0.1 0.1 0.1 -Total Square Cm 22.75 15.12 12.00 -Wound/Ulcer Outcome Not Healed Not Healed Not Healed -Ulcer Cleansing Rinsed/ Rinsed/ Rinsed/ Irrigated with Irrigated with Irrigated with Saline Saline Saline -Foul Odor after Cleansing No No No -Bioengineered Tissue Yes Yes Yes -Type of bioengineered Tissue GRAFIX-Pime GRAFIX-Pime GRAFIX-Pime -Expiration Date 11/21/19 10/06/20 11/20/21 -Product Lot Number [id number] -Percent Used 100 100 100 -Saline Lot Number [id number] -Bleeding Controlled with Pressure Pressure -Other [id number] saline -Offloading No No No -Treatment Response Procedure Procedure Procedure Tolerated Well Tolerated Well Tolerated Well Pain Scale: 0-10 Numeric Is Patient Pain Free? 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 Ulcer right medial lower leg. 2. Traumatic open wound of right lower leg with infection. 3. Dog bite of calf. 4. DM type 2 (diabetes mellitus, type 2) Plan: Patient was recently bit by his dog. He initially saw his PCP. His PCP was giving him IV antibiotics daily in his office. He was referred here for debridement of the right calf wound which is extremely tender to palpation and erythematous around the wound and very firm. Patient was referred to the ED where he was admitted. On 04/03/19 he had surgical preparation right proximal medial calf with incision and drainage and excisional debridement dog bite infected abscess (108 cm2). Wound care: Grafix advanced wound healing product #6 applied today. Used 100% of the product. Instructed patient not to get area wet and how to care for the dressing. Will apply tubigrip bilaterally for compression. Follow up in one week. Code Visit 150xxx-152xx: [id number] Skin sub graft trnk/arm/leg
[2019-07-09 14:54] VITALS: BP 141/72; PULSE 70; RESP 20; TEMP 35.8; BMI 39.4
--- NOTE | 2019-07-09 16:50 | PCM.WC.PN ---
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 He initially saw his PCP. His PCP has been giving him IV antibiotics daily in his office. He was referred here for debridement of the right calf wound which is extremely tender to palpation and erythematous around the wound and very firm. Patient was referred to the ED where he was admitted. On 04/03/19 he had surgical preparation right proximal medial calf with incision and drainage and excisional debridement dog bite infected abscess (108 cm2). Wound care is Grafix #7 advanced wound product applied today. He denies any fevers or nausea. His appetite is ok. Progress of Wound: Improved but this week has increased hypergranulation. - Physical Exam Vital Signs Temp Pulse Resp BP 96.4 F L 70 20 H 141/72 H 07/09/19 14:54 07/09/19 14:54 07/09/19 14:54 07/09/19 14:54 General: Alert, Oriented x3, Cooperative HEENT: Atraumatic Oral: Moist Mucosa Lungs: Normal air movement Cardiovascular: Regular rate Extremities: Capillary Refill Less than 3 Seconds, Edema Skin: Ulcer/ Wound - right medial proximal leg ulcer Wound Measurements and Assessment WC - Nurse 1 - General Ulcer Measurement Start: 06/18/19 14:36 Freq: Status: Active Protocol: Activity Type Activity Date Activity User E-Sign Co-Sign Detail Recorded Client Recorded Date Recorded By Document 07/09/19 14:54 DL [id number] 07/09/19 15:01 DL 07/09/19 14:54 Wound Center Nurse 1 [Ulcer Assessment] #1 R Lower Medial, Surgical debridment -Current Size (cm) - Length 1.9 -Current Size (cm) - Width 5 -Current Size (cm) - Depth 0.1 -Total Square Cm 9.5 -Classification - Thickness Full Thickness without Exposed Support Structure -Exudate Amt Medium -Exudate Type Serosanguineous -Wound Margin Distinct, Outline Attached -Granulation Amt Medium (34-66%) -Granulation Quality Hyper- granulation,Red -Slough/Fibrin Yes -Necrosis Amt Medium (34-66%) -Structure Exposed None/Limited to Skin Breakdown -Texture (Sayra-wound Skin Appearance) Assessed, Scarring -Moisture (Sayra-wound Skin Appearance Assessed ) -Temperature (Sayra-wound Skin No Abnormality Appearance) (Pt Warm) -Tenderness on Palpation (Sayra-wound No Skin Appearance) -Ulcer Cleansing Rinsed/ Irrigated with Saline -Foul Odor after Cleansing No -Anesthetic Used 4% Lidocaine Solution [Edema Assessment] -Right Calf (cm) 41.5 -Right Ankle (cm) 24.7 WC - Nurse 2 - General Ulcer CM Notes Start: 06/18/19 14:36 Freq: Status: Active Protocol: Activity Type Activity Date Activity User E-Sign Co-Sign Detail Recorded Client Recorded Date Recorded By Document 07/09/19 15:33 [id number] 07/09/19 15:41 07/09/19 15:33 Wound Center Nurse 2 [Procedure/Treatment] #1 R Lower Medial, Surgical debridment -Time 15:34 -Correct Patient Yes -Correct Side, Site, Position Yes -Correct Procedure Yes -Procedure Performed Yes -Type of Procedure Debridement -Clinical Debridement Subcutaneous -Post Debridement Size (cm) - Length 2.3 -Post Debridement Size (cm) - Width 4.7 -Post Debridement Size (cm) - Depth 0.1 -Total Square Cm 10.81 -Wound/Ulcer Outcome Not Healed -Ulcer Cleansing Rinsed/ Irrigated with Saline -Foul Odor after Cleansing No -Bioengineered Tissue Yes -Type of bioengineered Tissue GRAFIX-Pime -Expiration Date 10/06/20 -Product Lot Number [id number] -Percent Used 100 -Saline Lot Number [id number] -Bleeding Controlled with Pressure -Offloading No -Treatment Response Procedure Tolerated Well [See Physician Procedure note for Specifics] Pain Scale: 0-10 Numeric [Pain] -Is Patient Pain Free? Yes Musculoskeletal: No Tenderness to Palpation of Joints or Extremities Neurological: Deep Tendon Reflexes 2+/4 and Symmetrical Psych/Mental Status: Normal Affect, Appropriate Debridement Note Post-Debridement Measurements/Treatment WC - Nurse 2 - General Ulcer CM Notes Start: 06/18/19 14:36 Freq: Status: Active Protocol: Activity Type Activity Date Activity User E-Sign Co-Sign Detail Recorded Client Recorded Date Recorded By Document 06/18/19 14:55 [id number] 06/18/19 15:02 Document 06/25/19 14:15 [id number] 06/26/19 12:53 MD Document 07/02/19 15:57 [id number] 07/02/19 16:02 Document 07/09/19 15:33 [id number] 07/09/19 15:41 06/18/19 06/25/19 07/02/19 14:55 14:15 15:57 Wound Center Nurse 2 #1 R Lower Medial, Surgical debridment -Time 15:00 14:15 15:57 -Correct Patient Yes Yes Yes -Correct Side, Site, Position Yes Yes Yes -Correct Procedure Yes Yes Yes -Procedure Performed Yes Yes Yes -Type of Procedure Debridement Debridement Debridement -Clinical Debridement Subcutaneous Subcutaneous Subcutaneous -Post Debridement Size (cm) - Length 3.5 2.8 2.5 -Post Debridement Size (cm) - Width 6.5 5.4 4.8 -Post Debridement Size (cm) - Depth 0.1 0.1 0.1 -Total Square Cm 22.75 15.12 12.00 -Wound/Ulcer Outcome Not Healed Not Healed Not Healed -Ulcer Cleansing Rinsed/ Rinsed/ Rinsed/ Irrigated with Irrigated with Irrigated with Saline Saline Saline -Foul Odor after Cleansing No No No -Bioengineered Tissue Yes Yes Yes -Type of bioengineered Tissue GRAFIX-Pime GRAFIX-Pime GRAFIX-Pime -Expiration Date 11/21/19 10/06/20 11/20/21 -Product Lot Number [id number] -Percent Used 100 100 100 -Saline Lot Number [id number] -Bleeding Controlled with Pressure Pressure -Other [id number] saline -Offloading No No No -Treatment Response Procedure Procedure Procedure Tolerated Well Tolerated Well Tolerated Well Pain Scale: 0-10 Numeric Is Patient Pain Free? Yes Yes Yes 07/09/19 15:33 Wound Center Nurse 2 #1 R Lower Medial, Surgical debridment -Time 15:34 -Correct Patient Yes -Correct Side, Site, Position Yes -Correct Procedure Yes -Procedure Performed Yes -Type of Procedure Debridement -Clinical Debridement Subcutaneous -Post Debridement Size (cm) - Length 2.3 -Post Debridement Size (cm) - Width 4.7 -Post Debridement Size (cm) - Depth 0.1 -Total Square Cm 10.81 -Wound/Ulcer Outcome Not Healed -Ulcer Cleansing Rinsed/ Irrigated with Saline -Foul Odor after Cleansing No -Bioengineered Tissue Yes -Type of bioengineered Tissue GRAFIX-Pime -Expiration Date 10/06/20 -Product Lot Number [id number] -Percent Used 100 -Saline Lot Number [id number] -Bleeding Controlled with Pressure -Other -Offloading No -Treatment Response Procedure Tolerated Well Pain Scale: 0-10 Numeric Is Patient Pain Free? Yes Wound debrided: proximal medial leg Laterality: Right Type of Debridement: Excisional debridement Anesthesia Used: 4% Lidocaine Solution, 5% Lidocaine Gel Depth: Down to and including healthy tissue, in the subcutaneous layer Percentage of wound debrided: 100 Instrument Used: 7mm curette Tissue Removed: Subcutaneous tissue and slough, increased hypergranulation this week Severity: Fat Layer Exposed Amount of bleeding with debridement: Moderate Bleeding Controlled with: Pressure, Compression and gauze Patient tolerated procedure well Assessment/Plan Assessment: 1. Ulcer right medial lower leg. 2. Traumatic open wound of right lower leg with infection. 3. Dog bite of calf. 4. DM type 2 (diabetes mellitus, type 2) Plan: Patient was recently bit by his dog. He initially saw his PCP. His PCP was giving him IV antibiotics daily in his office. He was referred here for debridement of the right calf wound which is extremely tender to palpation and erythematous around the wound and very firm. Patient was referred to the ED where he was admitted. On 04/03/19 he had surgical preparation right proximal medial calf with incision and drainage and excisional debridement dog bite infected abscess (108 cm2). This week there was increased hypergranulation that needed to be debrided. Wound care: Grafix advanced wound healing product #7 applied today. Used 100% of the product. Instructed patient not to get area wet and how to care for the dressing. Will apply tubigrip bilaterally for compression. Follow up in one week. Code Visit 150xxx-152xx: [id number] Skin sub graft trnk/arm/leg
[2019-07-16 14:45] VITALS: BP 118/83; PULSE 83; RESP 18; TEMP 36.7; BMI 39.4
--- NOTE | 2019-07-16 17:54 | PN.PCM_ITS ---
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 He initially saw his PCP. His PCP has been giving him IV antibiotics daily in his office. He was referred here for debridement of the right calf wound which is extremely tender to palpation and erythematous around the wound and very firm. Patient was referred to the ED where he was admitted. On 04/03/19 he had surgical preparation right proximal medial calf with incision and drainage and excisional debridement dog bite infected abscess (108 cm2). Wound care is Grafix #8 advanced wound product applied today. He denies any fevers or nausea. His appetite is ok. Progress of Wound: Improved but this week has increased hypergranulation. - Physical Exam Vital Signs Temp Pulse Resp BP 98.0 F 83 18 118/83 H 07/16/19 14:45 07/16/19 14:45 07/16/19 14:45 07/16/19 14:45 General: Alert, Oriented x3, Cooperative HEENT: Atraumatic Oral: Moist Mucosa Lungs: Normal air movement Cardiovascular: Regular rate Extremities: Capillary Refill Less than 3 Seconds, Peripheral Pulses Normal Skin: Ulcer/ Wound - right medial lower leg ulcer Wound Measurements and Assessment WC - Nurse 1 - General Ulcer Measurement Start: 06/18/19 14:36 Freq: Status: Active Protocol: Activity Type Activity Date Activity User E-Sign Co-Sign Detail Recorded Client Recorded Date Recorded By Document 07/16/19 14:45 VT [id number] 07/16/19 14:56 MT 07/16/19 14:45 Wound Center Nurse 1 [Ulcer Assessment] #1 R Lower Medial, Surgical debridment -Current Size (cm) - Length 2.4 -Current Size (cm) - Width 5.5 -Current Size (cm) - Depth 0.1 -Total Square Cm 13.20 -Exudate Amt Small -Exudate Type Serosanguineous -Wound Margin Thickened -Granulation Amt Large (67-100%) -Granulation Quality Pale,[place] -Necrosis Amt Small (1-33%) -Necrotic Tissue Type Adherent Slough -Texture (Sayra-wound Skin Appearance) Assessed, Scarring -Moisture (Sayra-wound Skin Appearance Assessed, ) Maceration -Color (Sayra-wound Skin Appearance) Assessed, Hemosiderin Staining -Temperature (Sayra-wound Skin No Abnormality Appearance) (Pt Warm) -Tenderness on Palpation (Sayra-wound No Skin Appearance) -Ulcer Cleansing Rinsed/ Irrigated with Saline -Foul Odor after Cleansing No -Anesthetic Used 4% Lidocaine Solution [Edema Assessment] -Right Calf (cm) 43.4 -Right Ankle (cm) 25 WC - Nurse 2 - General Ulcer CM Notes Start: 06/18/19 14:36 Freq: Status: Active Protocol: Activity Type Activity Date Activity User E-Sign Co-Sign Detail Recorded Client Recorded Date Recorded By Document 07/16/19 15:12 [id number] 07/16/19 15:19 07/16/19 15:12 Wound Center Nurse 2 [Procedure/Treatment] #1 R Lower Medial, Surgical debridment -Time 15:17 -Correct Patient Yes -Correct Side, Site, Position Yes -Correct Procedure Yes -Procedure Performed Yes -Type of Procedure Debridement -Clinical Debridement Subcutaneous -Post Debridement Size (cm) - Length 2.0 -Post Debridement Size (cm) - Width 4.5 -Post Debridement Size (cm) - Depth 0.1 -Total Square Cm 9.00 -Wound/Ulcer Outcome Not Healed -Foul Odor after Cleansing No -Bioengineered Tissue Yes -Type of bioengineered Tissue GRAFIX-Pime -Expiration Date 10/23/20 -Product Lot Number [id number] -Percent Used 100 -Saline Lot Number [id number] -Bleeding Controlled with Pressure -Offloading No -Treatment Response Procedure Tolerated Well [See Physician Procedure note for Specifics] Pain Scale: 0-10 Numeric [Pain] -Is Patient Pain Free? Yes Musculoskeletal: No Tenderness to Palpation of Joints or Extremities Neurological: Neuro grossly intact Psych/Mental Status: Normal Affect, Appropriate Debridement Note Post-Debridement Measurements/Treatment WC - Nurse 2 - General Ulcer CM Notes Start: 06/18/19 14:36 Freq: Status: Active Protocol: Activity Type Activity Date Activity User E-Sign Co-Sign Detail Recorded Client Recorded Date Recorded By Document 06/18/19 14:55 [id number] 06/18/19 15:02 Document 06/25/19 14:15 [id number] 06/26/19 12:53 Document 07/02/19 15:57 [id number] 07/02/19 16:02 Document 07/09/19 15:33 [id number] 07/09/19 15:41 Document 07/16/19 15:12 [id number] 07/16/19 15:19 06/18/19 06/25/19 07/02/19 14:55 14:15 15:57 Wound Center Nurse 2 #1 R Lower Medial, Surgical debridment -Time 15:00 14:15 15:57 -Correct Patient Yes Yes Yes -Correct Side, Site, Position Yes Yes Yes -Correct Procedure Yes Yes Yes -Procedure Performed Yes Yes Yes -Type of Procedure Debridement Debridement Debridement -Clinical Debridement Subcutaneous Subcutaneous Subcutaneous -Post Debridement Size (cm) - Length 3.5 2.8 2.5 -Post Debridement Size (cm) - Width 6.5 5.4 4.8 -Post Debridement Size (cm) - Depth 0.1 0.1 0.1 -Total Square Cm 22.75 15.12 12.00 -Wound/Ulcer Outcome Not Healed Not Healed Not Healed -Ulcer Cleansing Rinsed/ Rinsed/ Rinsed/ Irrigated with Irrigated with Irrigated with Saline Saline Saline -Foul Odor after Cleansing No No No -Bioengineered Tissue Yes Yes Yes -Type of bioengineered Tissue GRAFIX-Pime GRAFIX-Pime GRAFIX-Pime -Expiration Date 11/21/19 10/06/20 11/20/21 -Product Lot Number [id number] -Percent Used 100 100 100 -Saline Lot Number [id number] -Bleeding Controlled with Pressure Pressure -Other [id number] saline -Offloading No No No -Treatment Response Procedure Procedure Procedure Tolerated Well Tolerated Well Tolerated Well Pain Scale: 0-10 Numeric Is Patient Pain Free? Yes Yes Yes 07/09/19 07/16/19 15:33 15:12 Wound Center Nurse 2 #1 R Lower Medial, Surgical debridment -Time 15:34 15:17 -Correct Patient Yes Yes -Correct Side, Site, Position Yes Yes -Correct Procedure Yes Yes -Procedure Performed Yes Yes -Type of Procedure Debridement Debridement -Clinical Debridement Subcutaneous Subcutaneous -Post Debridement Size (cm) - Length 2.3 2.0 -Post Debridement Size (cm) - Width 4.7 4.5 -Post Debridement Size (cm) - Depth 0.1 0.1 -Total Square Cm 10.81 9.00 -Wound/Ulcer Outcome Not Healed Not Healed -Ulcer Cleansing Rinsed/ Irrigated with Saline -Foul Odor after Cleansing No No -Bioengineered Tissue Yes Yes -Type of bioengineered Tissue GRAFIX-Pime GRAFIX-Pime -Expiration Date 10/06/20 10/23/20 -Product Lot Number [id number] -Percent Used 100 100 -Saline Lot Number [id number] -Bleeding Controlled with Pressure Pressure -Other -Offloading No No -Treatment Response Procedure Procedure Tolerated Well Tolerated Well Pain Scale: 0-10 Numeric Is Patient Pain Free? Yes Yes Wound debrided: medial lower leg ulcer Laterality: Right Type of Debridement: Excisional debridement Anesthesia Used: 4% Lidocaine Solution, 5% Lidocaine Gel Depth: Down to and including healthy tissue, in the subcutaneous layer Percentage of wound debrided: 100 Instrument Used: 7mm curette Tissue Removed: Subcutaneous tissue and slough- hypergranulation Severity: Fat Layer Exposed Amount of bleeding with debridement: Moderate Bleeding Controlled with: Pressure, Compression and gauze Patient tolerated procedure well Assessment/Plan Assessment: 1. Ulcer right medial lower leg. 2. Traumatic open wound of right lower leg with infection. 3. Dog bite of calf. 4. DM type 2 (diabetes mellitus, type 2) Plan: Patient was recently bit by his dog. He initially saw his PCP. His PCP was giving him IV antibiotics daily in his office. He was referred here for debridement of the right calf wound which is extremely tender to palpation and erythematous around the wound and very firm. Patient was referred to the ED where he was admitted. On 04/03/19 he had surgical preparation right proximal medial calf with incision and drainage and excisional debridement dog bite infected abscess (108 cm2). This week there was increased hypergranulation that needed to be debrided. Wound care: Grafix advanced wound healing product #8 applied today. Used 100% of the product. Instructed patient not to get area wet and how to care for the dressing. Will apply tubigrip bilaterally for compression. Follow up in one week. Code Visit 150xxx-152xx: [id number] Skin sub graft trnk/arm/leg
== END 2019-07-18 23:59 ==
LOC: WC 14:45
PROVIDERS: Family Provider Family Medicine Geriatric Medicine; PCP Family Medicine Geriatric Medicine; Referring Provider Family Medicine Geriatric Medicine; Visit Provider Nurse Practitioner Family
DX: S81.851A Open bite, right lower leg, initial encounter (principal); W54.0XXA Bitten by dog, initial encounter; E11.9 Type 2 diabetes mellitus without complications; G89.4 Chronic pain syndrome; Z98.84 Bariatric surgery status
CPT/HCPCS: 15271; Q4132; Q4133

== ENCOUNTER 2019-08-13 14:15 | Outpatient (RCR) | payer MEDICARE, SELFPAY ==
[2019-07-19 00:52] VITALS: BP 118/83; PULSE 83; RESP 18; TEMP 36.7
[2019-07-23 14:15] VITALS: BP 163/86; PULSE 80; RESP 18; TEMP 35.5; BMI 39.4
--- NOTE | 2019-07-23 14:53 | PCM.WC.PN ---
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 (2) Dog bite of right calf Status: Chronic Code(s): S81.851A - Open bite, right lower leg, initial encounter; W54.0XXA - Bitten by dog, initial encounter Comment: dog bite necrotizing infection abscess right proximal medial leg (3) DM type 2 (diabetes mellitus, type 2) Status: Chronic Code(s): E11.9 - Type 2 diabetes mellitus without complications (4) Chronic pain syndrome Status: Chronic (5) Bariatric surgery status Status: Chronic Code(s): Z98.84 - Bariatric surgery status Type of Wound Date of Service: 07/23/19 Chief Complaint: Dog bite to right medial calf History of Wound: Patient was bit by his dog in March. He initially saw his PCP. His PCP has been giving him IV antibiotics daily in his office. He was referred here for debridement of the right calf wound which is extremely tender to palpation and erythematous around the wound and very firm. Patient was referred to the ED where he was admitted. On 04/03/19 he had surgical preparation right proximal medial calf with incision and drainage and excisional debridement dog bite infected abscess (108 cm2). Wound care is Grafix #9 advanced wound product applied today. He denies any fevers or nausea. His appetite is ok. Progress of Wound: Much improvement this week. - Physical Exam Vital Signs Temp Pulse Resp BP 96 F L 80 18 163/86 H 07/23/19 14:15 07/23/19 14:15 07/23/19 14:15 07/23/19 14:15 General: Alert, Oriented x3, Cooperative HEENT: Atraumatic Oral: Moist Mucosa Lungs: Normal air movement Cardiovascular: Regular rate Extremities: Capillary Refill Less than 3 Seconds, Edema, Peripheral Pulses Normal Skin: Ulcer/ Wound - Right medial calf/leg ulcer Wound Measurements and Assessment WC - Nurse 1 - General Ulcer Measurement Start: 07/23/19 14:15 Freq: Status: Active Protocol: Activity Type Activity Date Activity User E-Sign Co-Sign Detail Recorded Client Recorded Date Recorded By Document 07/23/19 14:15 RB [id number] 07/23/19 14:25 RB 07/23/19 14:15 Wound Center Nurse 1 [Ulcer Assessment] #1 R Lower Medial, Surgical debridment -Combined with other wound No -Current Size (cm) - Length 1.5 -Current Size (cm) - Width 0.4 -Current Size (cm) - Depth 0.1 -Total Square Cm 0.60 -Tunneling No -Undermining/Tunneling No -Circular Undermining No -Exudate Amt Medium -Exudate Type Serosanguineous -Wound Margin Flat & Intact -Granulation Amt Large (67-100%) -Granulation Quality [place],Red -Slough/Fibrin Yes -Necrosis Amt Small (1-33%) -Necrotic Tissue Type Adherent Slough -Structure Exposed N/A -Texture (Sayra-wound Skin Appearance) Assessed, Scarring -Moisture (Sayra-wound Skin Appearance Assessed ) -Color (Sayra-wound Skin Appearance) Assessed -Temperature (Sayra-wound Skin No Abnormality Appearance) (Pt Warm) -Tenderness on Palpation (Sayra-wound No Skin Appearance) -Ulcer Cleansing Wound Cleanser -Foul Odor after Cleansing No -Anesthetic Used 5% Lidocaine Gel [Edema Assessment] -Lower Limb Edema Present Yes -Right Calf (cm) 42.1 -Right Ankle (cm) 25.5 WC - Nurse 2 - General Ulcer CM Notes Start: 07/23/19 14:15 Freq: Status: Active Protocol: Activity Type Activity Date Activity User E-Sign Co-Sign Detail Recorded Client Recorded Date Recorded By Document 07/23/19 14:41 DEMI [id number] 07/23/19 14:42 DEMI 07/23/19 14:41 Wound Center Nurse 2 [Procedure/Treatment] #1 R Lower Medial, Surgical debridment -Time 14:41 -Correct Patient Yes -Correct Side, Site, Position Yes -Correct Procedure Yes -Procedure Performed Yes -Type of Procedure Debridement -Clinical Debridement Subcutaneous -Post Debridement Size (cm) - Length 1.3 -Post Debridement Size (cm) - Width 3.3 -Post Debridement Size (cm) - Depth 0.1 -Total Square Cm 4.29 -Wound/Ulcer Outcome Not Healed -Ulcer Cleansing Rinsed/ Irrigated with Saline -Foul Odor after Cleansing No -Bioengineered Tissue Yes -Type of bioengineered Tissue GRAADAMX-Pime -Expiration Date 03/06/20 -Product Lot Number [id number] -Percent Used 100 -Saline Lot Number [id number] -Bleeding Controlled with Pressure -Offloading No -Treatment Response Procedure Tolerated Well [See Physician Procedure note for Specifics] Pain Scale: 0-10 Numeric [Pain] -Is Patient Pain Free? Yes Musculoskeletal: No Muscle Wasting Neurological: Neuro grossly intact Psych/Mental Status: Normal Affect, Appropriate Debridement Note Post-Debridement Measurements/Treatment WC - Nurse 2 - General Ulcer CM Notes Start: 07/23/19 14:15 Freq: Status: Active Protocol: Activity Type Activity Date Activity User E-Sign Co-Sign Detail Recorded Client Recorded Date Recorded By Document 07/23/19 14:41 DEMI [id number] 07/23/19 14:42 DEMI 07/23/19 14:41 Wound Center Nurse 2 #1 R Lower Medial, Surgical debridment -Time 14:41 -Correct Patient Yes -Correct Side, Site, Position Yes -Correct Procedure Yes -Procedure Performed Yes -Type of Procedure Debridement -Clinical Debridement Subcutaneous -Post Debridement Size (cm) - Length 1.3 -Post Debridement Size (cm) - Width 3.3 -Post Debridement Size (cm) - Depth 0.1 -Total Square Cm 4.29 -Wound/Ulcer Outcome Not Healed -Ulcer Cleansing Rinsed/ Irrigated with Saline -Foul Odor after Cleansing No -Bioengineered Tissue Yes -Type of bioengineered Tissue GRAFIX-Pime -Expiration Date 03/06/20 -Product Lot Number [id number] -Percent Used 100 -Saline Lot Number [id number] -Bleeding Controlled with Pressure -Offloading No -Treatment Response Procedure Tolerated Well Pain Scale: 0-10 Numeric Is Patient Pain Free? Yes Wound debrided: medial calf/lower leg Laterality: Right Type of Debridement: Excisional debridement Anesthesia Used: 5% Lidocaine Gel Depth: Down to and including healthy tissue, in the subcutaneous layer Percentage of wound debrided: 100 Instrument Used: 5mm curette Tissue Removed: Subcutaneous tissue and slough Severity: Fat Layer Exposed Amount of bleeding with debridement: Moderate Bleeding Controlled with: Pressure, Compression and gauze Patient tolerated procedure well Assessment/Plan Assessment: 1. Ulcer right medial lower leg. 2. Traumatic open wound of right lower leg with infection. 3. Dog bite of calf. 4. DM type 2 (diabetes mellitus, type 2) Plan: Patient was recently bit by his dog. He initially saw his PCP. His PCP was giving him IV antibiotics daily in his office. He was referred here for debridement of the right calf wound which is extremely tender to palpation and erythematous around the wound and very firm. Patient was referred to the ED where he was admitted. On 04/03/19 he had surgical preparation right proximal medial calf with incision and drainage and excisional debridement dog bite infected abscess (108 cm2). Wound care: Grafix advanced wound healing product #9 applied today. Used 100% of the product. Instructed patient not to get area wet and how to care for the dressing. Will apply tubigrip bilaterally for compression. Encouraged to increase protein intake. Follow up in one week. Code Visit 150xxx-152xx: [id number] Skin sub graft trnk/arm/leg
[2019-07-30 14:24] VITALS: BP 132/86; PULSE 74; RESP 16; TEMP 35.3; BMI 39.4
--- NOTE | 2019-07-30 16:02 | PCM.WC.PN ---
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 (2) Dog bite of right calf Status: Chronic Current Visit: Yes Code(s): S81.851A - Open bite, right lower leg, initial encounter; W54.0XXA - Bitten by dog, initial encounter Comment: dog bite necrotizing infection abscess right proximal medial leg (3) DM type 2 (diabetes mellitus, type 2) Status: Chronic Current Visit: Yes Code(s): E11.9 - Type 2 diabetes mellitus without complications (4) Chronic pain syndrome Status: Chronic Current Visit: Yes (5) Bariatric surgery status Status: Chronic Current Visit: Yes Code(s): Z98.84 - Bariatric surgery status Type of Wound Date of Service: 07/30/19 Chief Complaint: Dog bite to right medial calf History of Wound: Patient was bit by his dog in March. He initially saw his PCP. His PCP has been giving him IV antibiotics daily in his office. He was referred here for debridement of the right calf wound which is extremely tender to palpation and erythematous around the wound and very firm. Patient was referred to the ED where he was admitted. On 04/03/19 he had surgical preparation right proximal medial calf with incision and drainage and excisional debridement dog bite infected abscess (108 cm2). Wound care is Grafix #10 advanced wound product applied today. He denies any fevers or nausea. His appetite is ok. Progress of Wound: Much improvement this week. - Physical Exam Vital Signs Temp Pulse Resp BP 95.5 F L 74 16 132/86 H 07/30/19 14:24 07/30/19 14:24 07/30/19 14:24 07/30/19 14:24 General: Alert, Oriented x3, Cooperative HEENT: Atraumatic Oral: Moist Mucosa Lungs: Normal air movement Cardiovascular: Regular rate Extremities: Capillary Refill Less than 3 Seconds, Edema Skin: Ulcer/ Wound - Right medial lower leg ulcer Wound Measurements and Assessment WC - Nurse 1 - General Ulcer Measurement Start: 07/23/19 14:15 Freq: Status: Active Protocol: Activity Type Activity Date Activity User E-Sign Co-Sign Detail Recorded Client Recorded Date Recorded By Document 07/30/19 14:24 [facility] [id number] 07/30/19 14:32 [facility] 07/30/19 14:24 Wound Center Nurse 1 [Ulcer Assessment] #1 R Lower Medial, Surgical debridment -Combined with other wound No -Current Size (cm) - Length 1.4 -Current Size (cm) - Width 3.2 -Current Size (cm) - Depth 0.1 -Total Square Cm 4.48 -Photo Taken No -Epithelialization Small 1-33% -Tunneling No -Undermining/Tunneling No -Circular Undermining No -Exudate Amt Small -Exudate Type Serosanguineous -Wound Margin Distinct, Outline Attached -Granulation Amt Large (67-100%) -Granulation Quality Hyper- granulation,Red -Slough/Fibrin Yes -Necrosis Amt Small (1-33%) -Necrotic Tissue Type Adherent Slough -Texture (Sayra-wound Skin Appearance) Assessed, Scarring -Moisture (Sayra-wound Skin Appearance Assessed,Dry/ ) Scaly -Color (Sayra-wound Skin Appearance) Assessed -Temperature (Sayra-wound Skin No Abnormality Appearance) (Pt Warm) -Tenderness on Palpation (Sayra-wound No Skin Appearance) -Ulcer Cleansing soapy water -Foul Odor after Cleansing No -Anesthetic Used 5% Lidocaine Gel [Edema Assessment] -Lower Limb Edema Present Yes -Right Calf (cm) 41.4 -Right Ankle (cm) 24.7 WC - Nurse 2 - General Ulcer CM Notes Start: 07/23/19 14:15 Freq: Status: Active Protocol: Activity Type Activity Date Activity User E-Sign Co-Sign Detail Recorded Client Recorded Date Recorded By Document 07/30/19 14:48 [id number] 07/30/19 14:50 07/30/19 14:48 Wound Center Nurse 2 [Procedure/Treatment] #1 R Lower Medial, Surgical debridment -Time 14:48 -Correct Patient Yes -Correct Side, Site, Position Yes -Correct Procedure Yes -Procedure Performed Yes -Type of Procedure Debridement -Clinical Debridement Subcutaneous -Post Debridement Size (cm) - Length 1.5 -Post Debridement Size (cm) - Width 3.0 -Post Debridement Size (cm) - Depth 0.1 -Total Square Cm 4.50 -Wound/Ulcer Outcome Not Healed -Ulcer Cleansing Rinsed/ Irrigated with Saline -Foul Odor after Cleansing No -Bioengineered Tissue Yes -Type of bioengineered Tissue GRAFIX-Pime -Expiration Date 02/21/20 -Product Lot Number [id number] -Percent Used 100 -Saline Lot Number [id number] -Bleeding Controlled with Pressure -Offloading No -Treatment Response Procedure Tolerated Well [See Physician Procedure note for Specifics] Pain Scale: 0-10 Numeric [Pain] -Is Patient Pain Free? No Musculoskeletal: No Muscle Wasting Neurological: Neuro grossly intact Psych/Mental Status: Normal Affect, Appropriate Debridement Note Post-Debridement Measurements/Treatment WC - Nurse 2 - General Ulcer CM Notes Start: 07/23/19 14:15 Freq: Status: Active Protocol: Activity Type Activity Date Activity User E-Sign Co-Sign Detail Recorded Client Recorded Date Recorded By Document 07/23/19 14:41 [id number] 07/23/19 14:42 Document 07/30/19 14:48 [id number] 07/30/19 14:50 07/23/19 07/30/19 14:41 14:48 Wound Center Nurse 2 #1 R Lower Medial, Surgical debridment -Time 14:41 14:48 -Correct Patient Yes Yes -Correct Side, Site, Position Yes Yes -Correct Procedure Yes Yes -Procedure Performed Yes Yes -Type of Procedure Debridement Debridement -Clinical Debridement Subcutaneous Subcutaneous -Post Debridement Size (cm) - Length 1.3 1.5 -Post Debridement Size (cm) - Width 3.3 3.0 -Post Debridement Size (cm) - Depth 0.1 0.1 -Total Square Cm 4.29 4.50 -Wound/Ulcer Outcome Not Healed Not Healed -Ulcer Cleansing Rinsed/ Rinsed/ Irrigated with Irrigated with Saline Saline -Foul Odor after Cleansing No No -Bioengineered Tissue Yes Yes -Type of bioengineered Tissue GRAFIX-Pime GRAFIX-Pime -Expiration Date 03/06/20 02/21/20 -Product Lot Number [id number] -Percent Used 100 100 -Saline Lot Number [id number] -Bleeding Controlled with Pressure Pressure -Offloading No No -Treatment Response Procedure Procedure Tolerated Well Tolerated Well Pain Scale: 0-10 Numeric Is Patient Pain Free? Yes No Wound debrided: Medial lower leg ulcer Laterality: Right Type of Debridement: Excisional debridement Anesthesia Used: 5% Lidocaine Gel Depth: Down to and including healthy tissue, in the subcutaneous layer Percentage of wound debrided: 100 Instrument Used: 5mm curette Tissue Removed: Subcutaneous tissue and slough. 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 Ulcer right medial lower leg. 2. Traumatic open wound of right lower leg with infection. 3. Dog bite of calf. 4. DM type 2 (diabetes mellitus, type 2) Plan: Patient was recently bit by his dog. He initially saw his PCP. His PCP was giving him IV antibiotics daily in his office. He was referred here for debridement of the right calf wound which is extremely tender to palpation and erythematous around the wound and very firm. Patient was referred to the ED where he was admitted. On 04/03/19 he had surgical preparation right proximal medial calf with incision and drainage and excisional debridement dog bite infected abscess (108 cm2). Wound care: Grafix advanced wound healing product #10 applied today. Used 100% of the product. Instructed patient not to get area wet and how to care for the dressing. Will apply tubigrip bilaterally for compression. Encouraged to increase protein intake. He will not be healed next week after his 10th application of Graffix. He would benefit from further advanced wound healing substitute, will apply for Epifix to try to heal out this ulcer. Follow up in one week. Code Visit 150xxx-152xx: [id number] Skin sub graft trnk/arm/leg
[2019-08-06 14:26] VITALS: BP 134/88; PULSE 91; RESP 16; TEMP 35; BMI 39.4
--- NOTE | 2019-08-06 16:44 | PCM.WC.PN ---
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 (2) Dog bite of right calf Status: Chronic Code(s): S81.851A - Open bite, right lower leg, initial encounter; W54.0XXA - Bitten by dog, initial encounter Comment: dog bite necrotizing infection abscess right proximal medial leg (3) DM type 2 (diabetes mellitus, type 2) Status: Chronic Code(s): E11.9 - Type 2 diabetes mellitus without complications (4) Chronic pain syndrome Status: Chronic (5) Bariatric surgery status Status: Chronic Code(s): Z98.84 - Bariatric surgery status Type of Wound Date of Service: 08/06/19 Chief Complaint: Dog bite to right medial calf History of Wound: Patient was bit by his dog in March. He initially saw his PCP. His PCP has been giving him IV antibiotics daily in his office. He was referred here for debridement of the right calf wound which is extremely tender to palpation and erythematous around the wound and very firm. Patient was referred to the ED where he was admitted. On 04/03/19 he had surgical preparation right proximal medial calf with incision and drainage and excisional debridement dog bite infected abscess (108 cm2). Wound care is Grafix #10 advanced wound product applied last week. He was approved for Epifx #1 applied today. He has sensitivity and pain at the 10 o'clock area of the scarring area. He denies any fevers or nausea. His appetite is ok. Progress of Wound: Mild improvement this week, there is hypergranulation. - Physical Exam Vital Signs Temp Pulse Resp BP 95 F L 91 16 134/88 H 08/06/19 14:26 08/06/19 14:26 08/06/19 14:26 08/06/19 14:26 General: Alert, Oriented x3, Cooperative HEENT: Atraumatic Oral: Moist Mucosa Lungs: Normal air movement Cardiovascular: Regular rate Abdomen: Soft Extremities: Capillary Refill Less than 3 Seconds, Peripheral Pulses Normal Skin: Ulcer/ Wound - right medial lower leg ulcer that has some hypergranulation. He does have sensitivity and pain when palpating the scarring around the opened ulcer at the 10 o'clock area. Wound Measurements and Assessment WC - Nurse 1 - General Ulcer Measurement Start: 07/23/19 14:15 Freq: Status: Active Protocol: Activity Type Activity Date Activity User E-Sign Co-Sign Detail Recorded Client Recorded Date Recorded By Document 08/06/19 14:26 [facility] [id number] 08/06/19 14:34 [facility] 08/06/19 14:26 Wound Center Nurse 1 [Ulcer Assessment] #1 R Lower Medial, Surgical debridment -Combined with other wound No -Current Size (cm) - Length 1.8 -Current Size (cm) - Width 6.8 -Current Size (cm) - Depth 0.1 -Total Square Cm 12.24 -Date of Last Picture (Recall this 08/06/19 field) -Photo Taken Yes -Epithelialization Small 1-33% -Tunneling No -Undermining/Tunneling No -Circular Undermining No -Exudate Amt Medium -Exudate Type Serosanguineous -Wound Margin Distinct, Outline Attached -Granulation Amt Large (67-100%) -Granulation Quality Red -Slough/Fibrin Yes -Necrosis Amt Small (1-33%) -Necrotic Tissue Type Adherent Slough -Texture (Sayra-wound Skin Appearance) Assessed, Scarring -Moisture (Sayra-wound Skin Appearance Assessed,Dry/ ) Scaly -Color (Sayra-wound Skin Appearance) Assessed -Temperature (Sayra-wound Skin No Abnormality Appearance) (Pt Warm) -Tenderness on Palpation (Sayra-wound No Skin Appearance) -Ulcer Cleansing soapy water -Foul Odor after Cleansing No -Anesthetic Used 4% Lidocaine Solution [Edema Assessment] -Lower Limb Edema Present Yes -Right Calf (cm) 41.2 -Right Ankle (cm) 25 - Nurse 2 - General Ulcer CM Notes Start: 07/23/19 14:15 Freq: Status: Active Protocol: Activity Type Activity Date Activity User E-Sign Co-Sign Detail Recorded Client Recorded Date Recorded By Document 08/06/19 15:20 [id number] 08/06/19 15:21 08/06/19 15:20 Wound Center Nurse 2 [Procedure/Treatment] #1 R Lower Medial, Surgical debridment -Time 15:20 -Correct Patient Yes -Correct Side, Site, Position Yes -Correct Procedure Yes -Procedure Performed Yes -Type of Procedure Debridement -Clinical Debridement Subcutaneous -Post Debridement Size (cm) - Length 1.7 -Post Debridement Size (cm) - Width 3.7 -Post Debridement Size (cm) - Depth 0.1 -Total Square Cm 6.29 -Wound/Ulcer Outcome Not Healed -Ulcer Cleansing Rinsed/ Irrigated with Saline -Foul Odor after Cleansing No -Bioengineered Tissue Yes -Type of bioengineered Tissue EPIFIX -Expiration Date 01/17/24 -Product Lot Number [id number] -Percent Used 100 -Saline Lot Number [id number] -Bleeding Controlled with Pressure -Offloading No -Treatment Response Procedure Tolerated Well [See Physician Procedure note for Specifics] Pain Scale: 0-10 Numeric [Pain] -Is Patient Pain Free? Yes Musculoskeletal: No Tenderness to Palpation of Joints or Extremities Lymphatic: No Cervical, Supraclavicular, or Inguinal Adenopathy Neurological: Neuro grossly intact Psych/Mental Status: Normal Affect, Appropriate Debridement Note Post-Debridement Measurements/Treatment WC - Nurse 2 - General Ulcer CM Notes Start: 07/23/19 14:15 Freq: Status: Active Protocol: Activity Type Activity Date Activity User E-Sign Co-Sign Detail Recorded Client Recorded Date Recorded By Document 07/23/19 14:41 [id number] 07/23/19 14:42 Document 07/30/19 14:48 [id number] 07/30/19 14:50 Document 08/06/19 15:20 [id number] 08/06/19 15:21 07/23/19 07/30/19 08/06/19 14:41 14:48 15:20 Wound Center Nurse 2 #1 R Lower Medial, Surgical debridment -Time 14:41 14:48 15:20 -Correct Patient Yes Yes Yes -Correct Side, Site, Position Yes Yes Yes -Correct Procedure Yes Yes Yes -Procedure Performed Yes Yes Yes -Type of Procedure Debridement Debridement Debridement -Clinical Debridement Subcutaneous Subcutaneous Subcutaneous -Post Debridement Size (cm) - Length 1.3 1.5 1.7 -Post Debridement Size (cm) - Width 3.3 3.0 3.7 -Post Debridement Size (cm) - Depth 0.1 0.1 0.1 -Total Square Cm 4.29 4.50 6.29 -Wound/Ulcer Outcome Not Healed Not Healed Not Healed -Ulcer Cleansing Rinsed/ Rinsed/ Rinsed/ Irrigated with Irrigated with Irrigated with Saline Saline Saline -Foul Odor after Cleansing No No No -Bioengineered Tissue Yes Yes Yes -Type of bioengineered Tissue GRAFIX-Pime GRAFIX-Pime EPIFIX -Expiration Date 03/06/20 02/21/20 01/17/24 -Product Lot Number [id number] -Percent Used 100 100 100 -Saline Lot Number [id number] -Bleeding Controlled with Pressure Pressure Pressure -Offloading No No No -Treatment Response Procedure Procedure Procedure Tolerated Well Tolerated Well Tolerated Well Pain Scale: 0-10 Numeric Is Patient Pain Free? Yes No Yes Wound debrided: medial lower leg ulcer Laterality: Right Type of Debridement: Excisional debridement Anesthesia Used: 5% Lidocaine Gel Depth: Down to and including healthy tissue, in the subcutaneous layer Percentage of wound debrided: 100 Instrument Used: 5mm curette Tissue Removed: Subcutaneous tissue and slough Severity: Fat Layer Exposed Amount of bleeding with debridement: Moderate Bleeding Controlled with: Pressure, Compression and gauze Patient tolerated procedure well Assessment/Plan Assessment: 1. Ulcer right medial lower leg. 2. Traumatic open wound of right lower leg with infection. 3. Dog bite of calf. 4. DM type 2 (diabetes mellitus, type 2) Plan: Patient was bit by his dog in March. He initially saw his PCP. His PCP was giving him IV antibiotics daily in his office. He was referred here for debridement of the right calf wound which is extremely tender to palpation and erythematous around the wound and very firm. Patient was referred to the ED where he was admitted. On 04/03/19 he had surgical preparation right proximal medial calf with incision and drainage and excisional debridement dog bite infected abscess (108 cm2). Wound care: Grafix advanced wound healing product #10 applied last week. Approved for Epifix #1 with wound veil started today. Used 100% of the product. Instructed patient not to get area wet and how to care for the dressing. Will apply tubigrip bilaterally for compression. Encouraged to increase protein intake. He is having pain and sensitivity on the scarring surrounding the ulcer at 10 o'clock, especially with palpation. Discussed with patient about his options which include referring him back to Dr. Reardon for possible excision of painful scarring and skin graft placement. Patient states he is not currently interested in any further surgery. Follow up in one week. Code Visit [id number]: [id number] Skin sub graft trnk/arm/leg
[2019-08-13 14:35] VITALS: BP 115/75; PULSE 89; RESP 20; TEMP 36.6; BMI 39.4
--- NOTE | 2019-08-13 17:08 | PCM.WC.PN ---
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 (2) Dog bite of right calf Status: Chronic Code(s): S81.851A - Open bite, right lower leg, initial encounter; W54.0XXA - Bitten by dog, initial encounter Comment: dog bite necrotizing infection abscess right proximal medial leg (3) DM type 2 (diabetes mellitus, type 2) Status: Chronic Code(s): E11.9 - Type 2 diabetes mellitus without complications (4) Chronic pain syndrome Status: Chronic (5) Bariatric surgery status Status: Chronic Code(s): Z98.84 - Bariatric surgery status Type of Wound Date of Service: 08/13/19 Chief Complaint: Dog bite to right medial calf History of Wound: Patient was bit by his dog in March. He initially saw his PCP. His PCP has been giving him IV antibiotics daily in his office. He was referred here for debridement of the right calf wound which is extremely tender to palpation and erythematous around the wound and very firm. Patient was referred to the ED where he was admitted. On 04/03/19 he had surgical preparation right proximal medial calf with incision and drainage and excisional debridement dog bite infected abscess (108 cm2). Wound care is Grafix #10 advanced wound product applied last week. He was approved for Epifx #2 applied today. 100 % of the product was used. He has sensitivity and pain at the 10 o'clock area of the scarring area. He denies any fevers or nausea. His appetite is ok. Progress of Wound: Improved. - Physical Exam Vital Signs Temp Pulse Resp BP 97.9 F 89 20 H 115/75 08/13/19 14:35 08/13/19 14:35 08/13/19 14:35 08/13/19 14:35 General: Alert, Oriented x3, Cooperative HEENT: Atraumatic Oral: Moist Mucosa Lungs: Normal air movement Cardiovascular: Regular rate Extremities: Capillary Refill Less than 3 Seconds, Edema, Peripheral Pulses Normal Skin: Ulcer/ Wound - right medial leg Wound Measurements and Assessment WC - Nurse 1 - General Ulcer Measurement Start: 07/23/19 14:15 Freq: Status: Active Protocol: Activity Type Activity Date Activity User E-Sign Co-Sign Detail Recorded Client Recorded Date Recorded By Document 08/13/19 14:35 DL [id number] 08/13/19 14:41 DL 08/13/19 14:35 Wound Center Nurse 1 [Ulcer Assessment] #1 R Lower Medial, Surgical debridment -Current Size (cm) - Length 0.6 -Current Size (cm) - Width 3.5 -Current Size (cm) - Depth 0.1 -Total Square Cm 2.10 -Photo Taken No -Exudate Amt None Present -Wound Margin Indistinct, Non -Visible -Granulation Amt Large (67-100%) -Granulation Quality [place],Red -Necrosis Amt Small (1-33%) -Necrotic Tissue Type Adherent Slough -Structure Exposed N/A -Texture (Sayra-wound Skin Appearance) Scarring -Moisture (Sayra-wound Skin Appearance Dry/Scaly ) -Color (Sayra-wound Skin Appearance) Rubor -Temperature (Sayra-wound Skin No Abnormality Appearance) (Pt Warm) -Tenderness on Palpation (Sayra-wound No Skin Appearance) -Ulcer Cleansing Wound Cleanser -Foul Odor after Cleansing No -Anesthetic Used 5% Lidocaine Gel WC - Nurse 2 - General Ulcer CM Notes Start: 07/23/19 14:15 Freq: Status: Active Protocol: Activity Type Activity Date Activity User E-Sign Co-Sign Detail Recorded Client Recorded Date Recorded By Document 08/13/19 15:05 [id number] 08/13/19 15:07 08/13/19 15:05 Wound Center Nurse 2 [Procedure/Treatment] -Time 15:05 -Correct Patient Yes -Correct Side, Site, Position Yes -Correct Procedure Yes -Procedure Performed Yes -Type of Procedure Debridement -Clinical Debridement Subcutaneous -Post Debridement Size (cm) - Length 0.7 -Post Debridement Size (cm) - Width 3.0 -Post Debridement Size (cm) - Depth 0.1 -Total Square Cm 2.10 -Wound/Ulcer Outcome Not Healed -Ulcer Cleansing Rinsed/ Irrigated with Saline -Foul Odor after Cleansing No -Bioengineered Tissue Yes -Type of bioengineered Tissue EPIFIX -Expiration Date 01/17/24 -Product Lot Number [id number] -Percent Used 100 -Saline Lot Number [id number] -Bleeding Controlled with Pressure -Offloading No -Treatment Response Procedure Tolerated Well [See Physician Procedure note for Specifics] Pain Scale: 0-10 Numeric [Pain] -Is Patient Pain Free? Yes Musculoskeletal: No Muscle Wasting Neurological: Neuro grossly intact Psych/Mental Status: Normal Affect, Appropriate Debridement Note Post-Debridement Measurements/Treatment WC - Nurse 2 - General Ulcer CM Notes Start: 07/23/19 14:15 Freq: Status: Active Protocol: Activity Type Activity Date Activity User E-Sign Co-Sign Detail Recorded Client Recorded Date Recorded By Document 07/23/19 14:41 [id number] 07/23/19 14:42 Document 07/30/19 14:48 [id number] 07/30/19 14:50 Document 08/06/19 15:20 [id number] 08/06/19 15:21 Document 08/13/19 15:05 [id number] 08/13/19 15:07 07/23/19 07/30/19 08/06/19 14:41 14:48 15:20 Wound Center Nurse 2 #1 R Lower Medial, Surgical debridment -Time 14:41 14:48 15:20 -Correct Patient Yes Yes Yes -Correct Side, Site, Position Yes Yes Yes -Correct Procedure Yes Yes Yes -Procedure Performed Yes Yes Yes -Type of Procedure Debridement Debridement Debridement -Clinical Debridement Subcutaneous Subcutaneous Subcutaneous -Post Debridement Size (cm) - Length 1.3 1.5 1.7 -Post Debridement Size (cm) - Width 3.3 3.0 3.7 -Post Debridement Size (cm) - Depth 0.1 0.1 0.1 -Total Square Cm 4.29 4.50 6.29 -Wound/Ulcer Outcome Not Healed Not Healed Not Healed -Ulcer Cleansing Rinsed/ Rinsed/ Rinsed/ Irrigated with Irrigated with Irrigated with Saline Saline Saline -Foul Odor after Cleansing No No No -Bioengineered Tissue Yes Yes Yes -Type of bioengineered Tissue GRAFIX-Pime GRAFIX-Pime EPIFIX -Expiration Date 03/06/20 02/21/20 01/17/24 -Product Lot Number [id number] -Percent Used 100 100 100 -Saline Lot Number [id number] -Bleeding Controlled with Pressure Pressure Pressure -Offloading No No No -Treatment Response Procedure Procedure Procedure Tolerated Well Tolerated Well Tolerated Well Pain Scale: 0-10 Numeric Is Patient Pain Free? Yes No Yes 08/13/19 15:05 Wound Center Nurse 2 #1 R Lower Medial, Surgical debridment -Time 15:05 -Correct Patient Yes -Correct Side, Site, Position Yes -Correct Procedure Yes -Procedure Performed Yes -Type of Procedure Debridement -Clinical Debridement Subcutaneous -Post Debridement Size (cm) - Length 0.7 -Post Debridement Size (cm) - Width 3.0 -Post Debridement Size (cm) - Depth 0.1 -Total Square Cm 2.10 -Wound/Ulcer Outcome Not Healed -Ulcer Cleansing Rinsed/ Irrigated with Saline -Foul Odor after Cleansing No -Bioengineered Tissue Yes -Type of bioengineered Tissue EPIFIX -Expiration Date 01/17/24 -Product Lot Number [id number] -Percent Used 100 -Saline Lot Number [id number] -Bleeding Controlled with Pressure -Offloading No -Treatment Response Procedure Tolerated Well Pain Scale: 0-10 Numeric Is Patient Pain Free? Yes Wound debrided: medial lower leg Laterality: Right Type of Debridement: Excisional debridement Anesthesia Used: 5% Lidocaine Gel Depth: Down to and including healthy tissue, in the subcutaneous layer Percentage of wound debrided: 100 Instrument Used: 5mm curette Tissue Removed: subcutaneous tissue and slough Severity: Fat Layer Exposed Amount of bleeding with debridement: Mild Bleeding Controlled with: Pressure, Compression and gauze Patient tolerated procedure well Assessment/Plan Assessment: 1. Ulcer right medial lower leg. 2. Traumatic open wound of right lower leg with infection. 3. Dog bite of calf. 4. DM type 2 (diabetes mellitus, type 2) Plan: Patient was bit by his dog in March. He initially saw his PCP. His PCP was giving him IV antibiotics daily in his office. He was referred here for debridement of the right calf wound which is extremely tender to palpation and erythematous around the wound and very firm. Patient was referred to the ED where he was admitted. On 04/03/19 he had surgical preparation right proximal medial calf with incision and drainage and excisional debridement dog bite infected abscess (108 cm2). Wound care: Grafix advanced wound healing product #10. Approved for Epifix #2 with wound veil applied today. Used 100% of the product. Instructed patient not to get area wet and how to care for the dressing. Will apply tubigrip bilaterally for compression. Encouraged to increase protein intake. He is having pain and sensitivity on the scarring surrounding the ulcer at 10 o'clock, especially with palpation. Discussed with patient about his options which include referring him back to Dr. Reardon for possible excision of painful scarring and skin graft placement. Patient states he is not currently interested in any further surgery. Follow up in one week. Code Visit [id number]: [id number] Skin sub graft trnk/arm/leg
== END 2019-08-17 23:59 ==
LOC: WC 14:15
PROVIDERS: Family Provider Family Medicine Geriatric Medicine; PCP Family Medicine Geriatric Medicine; Referring Provider Family Medicine Geriatric Medicine; Visit Provider Nurse Practitioner Family
DX: S81.851A Open bite, right lower leg, initial encounter (principal); W54.0XXA Bitten by dog, initial encounter; E11.9 Type 2 diabetes mellitus without complications; G89.4 Chronic pain syndrome; Z98.84 Bariatric surgery status
CPT/HCPCS: 15271; Q4133; Q4186

== ENCOUNTER 2019-08-27 14:15 | Outpatient (RCR) | payer MEDICARE, MEDICAID, SELFPAY ==
[2019-08-18 00:42] VITALS: BP 115/75; PULSE 89; RESP 20; TEMP 36.6
[2019-08-20 14:20] VITALS: BP 137/81; PULSE 75; RESP 16; BMI 39.4
--- NOTE | 2019-08-20 16:20 | PN.PCM_ITS ---
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 (2) Dog bite of right calf Status: Chronic Code(s): S81.851A - Open bite, right lower leg, initial encounter; W54.0XXA - Bitten by dog, initial encounter Comment: dog bite necrotizing infection abscess right proximal medial leg (3) DM type 2 (diabetes mellitus, type 2) Status: Chronic Code(s): E11.9 - Type 2 diabetes mellitus without complications (4) Chronic pain syndrome Status: Chronic (5) Bariatric surgery status Status: Chronic Code(s): Z98.84 - Bariatric surgery status Type of Wound Date of Service: 08/20/19 Chief Complaint: Dog bite to right medial calf History of Wound: Patient was bit by his dog in March. He initially saw his PCP. His PCP has been giving him IV antibiotics daily in his office. He was refer red here for debridement of the right calf wound which is extremely tender to palpation and erythematous around the wound and very firm. Patient was referred to the ED where he was admitted. On 04/03/19 he had surgical preparation right proximal medial calf with incision and drainage and excisional debridement dog bite infected abscess (108 cm2). Wound care is Grafix #10 advanced wound product applied last week. He was approved for Epifx which she has had 2 applications applied. Today he is almost healed. We will do collagen hydrogel with Adaptic and a Tubigrip for his wound care. He has sensitivity and pain at the 10 o'clock area of the scarring area. He denies any fevers or nausea. His appetite is ok. Progress of Wound: Improved. - Physical Exam Vital Signs Temp Pulse Resp BP 97.9 F 75 16 137/81 H 08/18/19 00:42 08/20/19 14:20 08/20/19 14:20 08/20/19 14:20 General: Alert, Oriented x3, Cooperative HEENT: Atraumatic Oral: Moist Mucosa Lungs: Normal air movement Cardiovascular: Regular rate Abdomen: Soft Extremities: Capillary Refill Less than 3 Seconds Skin: Ulcer/ Wound - Right medial leg. Wound Measurements and Assessment WC - Nurse 1 - General Ulcer Measurement Start: 08/20/19 14:19 Freq: Status: Active Protocol: Activity Type Activity Date Activity User E-Sign Co-Sign Detail Recorded Client Recorded Date Recorded By Document 08/20/19 14:20 [facility] [id number] 08/20/19 14:25 [facility] 08/20/19 14:20 Wound Center Nurse 1 [Ulcer Assessment] #1 R Lower Medial, Surgical debridment -Combined with other wound No -Current Size (cm) - Length 0.1 -Current Size (cm) - Width 0.1 -Current Size (cm) - Depth 0.1 -Total Square Cm 0.01 -Photo Taken No -Epithelialization Small 1-33% -Tunneling No -Undermining/Tunneling No -Circular Undermining No -Exudate Amt Small -Exudate Type Serosanguineous -Granulation Amt Small (1-33%) -Granulation Quality Red -Slough/Fibrin Yes -Necrosis Amt Medium (34-66%) -Necrotic Tissue Type Adherent Slough -Texture (Sayra-wound Skin Appearance) Assessed, Scarring -Moisture (Sayra-wound Skin Appearance Assessed,Dry/ ) Scaly -Color (Sayra-wound Skin Appearance) Assessed, Erythema -Temperature (Sayra-wound Skin No Abnormality Appearance) (Pt Warm) -Tenderness on Palpation (Sayra-wound Yes Skin Appearance) -Ulcer Cleansing Rinsed/ Irrigated with Saline -Foul Odor after Cleansing No -Anesthetic Used 4% Lidocaine Solution [Edema Assessment] -Lower Limb Edema Present Yes -Right Calf (cm) 39.5 -Right Ankle (cm) 24 WC - Nurse 2 - General Ulcer CM Notes Start: 08/20/19 14:19 Freq: Status: Active Protocol: Activity Type Activity Date Activity User E-Sign Co-Sign Detail Recorded Client Recorded Date Recorded By Document 08/20/19 14:34 [id number] 08/20/19 14:35 08/20/19 14:34 Wound Center Nurse 2 [Procedure/Treatment] #1 R Lower Medial, Surgical debridment -Time 14:35 -Correct Patient Yes -Correct Side, Site, Position Yes -Correct Procedure Yes -Procedure Performed Yes -Type of Procedure Debridement -Clinical Debridement Subcutaneous -Post Debridement Size (cm) - Length 0.2 -Post Debridement Size (cm) - Width 0.6 -Post Debridement Size (cm) - Depth 0.1 -Total Square Cm 0.12 -Wound/Ulcer Outcome Not Healed -Ulcer Cleansing Rinsed/ Irrigated with Saline -Foul Odor after Cleansing No -Bioengineered Tissue No -Bleeding Controlled with Pressure -Offloading No -Treatment Response Procedure Tolerated Well [See Physician Procedure note for Specifics] Pain Scale: 0-10 Numeric [Pain] -Is Patient Pain Free? Yes Musculoskeletal: No Muscle Wasting Neurological: Neuro grossly intact Psych/Mental Status: Normal Affect, Appropriate Debridement Note Post-Debridement Measurements/Treatment WC - Nurse 2 - General Ulcer CM Notes Start: 08/20/19 14:19 Freq: Status: Active Protocol: Activity Type Activity Date Activity User E-Sign Co-Sign Detail Recorded Client Recorded Date Recorded By Document 08/20/19 14:34 [id number] 08/20/19 14:35 DEMI 08/20/19 14:34 Wound Center Nurse 2 #1 R Lower Medial, Surgical debridment -Time 14:35 -Correct Patient Yes -Correct Side, Site, Position Yes -Correct Procedure Yes -Procedure Performed Yes -Type of Procedure Debridement -Clinical Debridement Subcutaneous -Post Debridement Size (cm) - Length 0.2 -Post Debridement Size (cm) - Width 0.6 -Post Debridement Size (cm) - Depth 0.1 -Total Square Cm 0.12 -Wound/Ulcer Outcome Not Healed -Ulcer Cleansing Rinsed/ Irrigated with Saline -Foul Odor after Cleansing No -Bioengineered Tissue No -Bleeding Controlled with Pressure -Offloading No -Treatment Response Procedure Tolerated Well Pain Scale: 0-10 Numeric Is Patient Pain Free? Yes Wound debrided: Medial leg. Laterality: Right Type of Debridement: Excisional debridement Anesthesia Used: 5% Lidocaine Gel Depth: Down to and including healthy tissue, in the subcutaneous layer Percentage of wound debrided: 100 Instrument Used: 3mm curette Tissue Removed: Subcutaneous tissue and slough Severity: Limited To Skin Breakdown Amount of bleeding with debridement: Mild Bleeding Controlled with: Pressure Patient tolerated procedure well Assessment/Plan Assessment: 1. Ulcer right medial lower leg. 2. Traumatic open wound of right lower leg with infection. 3. Dog bite of calf. 4. DM type 2 (diabetes mellitus, type 2) Plan: Patient was bit by his dog in March. He initially saw his PCP. His PCP was giving him IV antibiotics daily in his office. He was referred here for debridement of the right calf wound which is extremely tender to palpation and erythematous around the wound and very firm. Patient was referred to the ED where he was admitted. On 04/03/19 he had surgical preparation right proximal medial calf with incision and drainage and excisional debridement dog bite infected abscess (108 cm2). Wound care: Grafix advanced wound healing product #10. Approved for Epifix which he has had to applications. Wound care will be collagen hydrogel covered by Adaptic. Will apply tubigrip bilaterally for compression. Encouraged to increase protein intake. He is having pain and sensitivity on the scarring surrounding the ulcer at 10 o'clock, especially with palpation. Discussed with patient about his options which include referring him back to Dr. Reardon for possible excision of painful scarring and skin graft placement. Patient states he is not currently interested in any further surgery. Encouraged him to start massaging the scarred area and applying lotion to help soften the scarring and hopefully help decrease hypersensitivity. Encourage protein intake. Follow up in one week. Code Visit [id number]: [id number] [place] subq tissue 20 sq cm/<
[2019-08-27 14:30] VITALS: BP 125/85; PULSE 71; RESP 20; TEMP 36.3; BMI 39.4
--- NOTE | 2019-08-27 16:54 | PCM.WC.PN ---
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 (2) Dog bite of right calf Status: Chronic Code(s): S81.851A - Open bite, right lower leg, initial encounter; W54.0XXA - Bitten by dog, initial encounter Comment: dog bite necrotizing infection abscess right proximal medial leg (3) DM type 2 (diabetes mellitus, type 2) Status: Chronic Code(s): E11.9 - Type 2 diabetes mellitus without complications (4) Chronic pain syndrome Status: Chronic (5) Bariatric surgery status Status: Chronic Code(s): Z98.84 - Bariatric surgery status Type of Wound Date of Service: 08/27/19 Chief Complaint: Dog bite to right medial calf History of Wound: Patient was bit by his dog in March. He initially saw his PCP. His PCP has been giving him IV antibiotics daily in his office. He was referred here for debridement of the right calf wound which is extremely tender to palpation and erythematous around the wound and very firm. Patient was referred to the ED where he was admitted. On 04/03/19 he had surgical preparation right proximal medial calf with incision and drainage and excisional debridement dog bite infected abscess (108 cm2). Wound care was Grafix #10 advanced wound product applied last week. He was approved for Epifx which he has had 2 applications applied. Today he is healed. He has sensitivity and pain at the 10 o'clock area of the scarring area. Progress of Wound: Today is healed. - Physical Exam Vital Signs Temp Pulse Resp BP 97.4 F L 71 20 H 125/85 H 08/27/19 14:30 08/27/19 14:30 08/27/19 14:30 08/27/19 14:30 General: Alert, Oriented x3, Cooperative HEENT: Atraumatic Oral: Moist Mucosa Lungs: Normal air movement Cardiovascular: Regular rate Extremities: Capillary Refill Less than 3 Seconds Skin: Ulcer/ Wound - right medial proximal lower leg ulcer is healed today Wound Measurements and Assessment WC - Nurse 1 - General Ulcer Measurement Start: 08/20/19 14:19 Freq: Status: Active Protocol: Activity Type Activity Date Activity User E-Sign Co-Sign Detail Recorded Client Recorded Date Recorded By Document 08/27/19 14:30 DL [id number] 08/27/19 14:35 DL 08/27/19 14:30 Wound Center Nurse 1 [Ulcer Assessment] #1 R Lower Medial, Surgical debridment -Current Size (cm) - Length 1.2 -Current Size (cm) - Width 2.8 -Current Size (cm) - Depth 0.1 -Total Square Cm 3.36 -Photo Taken No -Exudate Amt Small -Wound Margin Distinct, Outline Attached -Granulation Amt Large (67-100%) -Granulation Quality Red -Necrosis Amt Small (1-33%) -Necrotic Tissue Type Adherent Slough -Structure Exposed N/A -Texture (Sayra-wound Skin Appearance) Scarring -Moisture (Sayra-wound Skin Appearance Dry/Scaly ) -Color (Sayra-wound Skin Appearance) No Abnormality -Temperature (Sayra-wound Skin No Abnormality Appearance) (Pt Warm) -Tenderness on Palpation (Sayra-wound No Skin Appearance) -Ulcer Cleansing Rinsed/ Irrigated with Saline -Foul Odor after Cleansing No -Anesthetic Used 4% Lidocaine Solution [Edema Assessment] -Right Calf (cm) 39.5 -Right Ankle (cm) 23.6 WC - Nurse 2 - General Ulcer CM Notes Start: 08/20/19 14:19 Freq: Status: Active Protocol: Activity Type Activity Date Activity User E-Sign Co-Sign Detail Recorded Client Recorded Date Recorded By Document 08/27/19 14:46 DL [id number] 08/27/19 14:53 DL 08/27/19 14:46 Wound Center Nurse 2 [Procedure/Treatment] #1 R Lower Medial, Surgical debridment -Correct Patient No -Correct Side, Site, Position No -Correct Procedure No -Procedure Performed No -Post Debridement Size (cm) - Length 0 -Post Debridement Size (cm) - Width 0 -Post Debridement Size (cm) - Depth 0 -Total Square Cm 0 -Wound/Ulcer Outcome Healed- Epithelialized [See Physician Procedure note for Specifics] Pain Scale: 0-10 Numeric [Pain] -Is Patient Pain Free? Yes Musculoskeletal: No Muscle Wasting Neurological: Neuro grossly intact Psych/Mental Status: Normal Affect, Appropriate Debridement Note Post-Debridement Measurements/Treatment WC - Nurse 2 - General Ulcer CM Notes Start: 08/20/19 14:19 Freq: Status: Active Protocol: Activity Type Activity Date Activity User E-Sign Co-Sign Detail Recorded Client Recorded Date Recorded By Document 08/20/19 14:34 [id number] 08/20/19 14:35 Document 08/27/19 14:46 DL [id number] 08/27/19 14:53 DL 08/20/19 08/27/19 14:34 14:46 Wound Center Nurse 2 #1 R Lower Medial, Surgical debridment -Time 14:35 -Correct Patient Yes No -Correct Side, Site, Position Yes No -Correct Procedure Yes No -Procedure Performed Yes No -Type of Procedure Debridement -Clinical Debridement Subcutaneous -Post Debridement Size (cm) - Length 0.2 0 -Post Debridement Size (cm) - Width 0.6 0 -Post Debridement Size (cm) - Depth 0.1 0 -Total Square Cm 0.12 0 -Wound/Ulcer Outcome Not Healed Healed- Epithelialized -Ulcer Cleansing Rinsed/ Irrigated with Saline -Foul Odor after Cleansing No -Bioengineered Tissue No -Bleeding Controlled with Pressure -Offloading No -Treatment Response Procedure Tolerated Well Pain Scale: 0-10 Numeric Is Patient Pain Free? Yes Yes No debridement was completed today Assessment/Plan Assessment: 1. Ulcer right medial lower leg. 2. Traumatic open wound of right lower leg with infection. 3. Dog bite of calf. 4. DM type 2 (diabetes mellitus, type 2) Plan: Patient was bit by his dog in March. He initially saw his PCP. His PCP was giving him IV antibiotics daily in his office. He was referred here for debridement of the right calf wound which is extremely tender to palpation and erythematous around the wound and very firm. Patient was referred to the ED where he was admitted. On 04/03/19 he had surgical preparation right proximal medial calf with incision and drainage and excisional debridement dog bite infected abscess (108 cm2). Wound care: Grafix advanced wound healing product #10. Approved for Epifix which he has had to applications. He is healed today. Will continue to apply tubigrip bilaterally for compression. He is having pain and sensitivity on the scarring surrounding the ulcer at 10 o'clock, especially with palpation. Discussed with patient about his options which include referring him back to Dr. Reardon for possible excision of painful scarring and skin graft placement. Patient states he is not currently interested in any further surgery. Encouraged him to start massaging the scarred area and applying lotion to help soften the scarring and hopefully help decrease hypersensitivity. Discharged from the wound center. Code Visit Office Visits / Consults: [id number] OV L3 Est
== END 2019-09-17 23:59 ==
LOC: WC 14:15
PROVIDERS: Family Provider Family Medicine Geriatric Medicine; PCP Family Medicine Geriatric Medicine; Referring Provider Family Medicine Geriatric Medicine; Visit Provider Nurse Practitioner Family
DX: S81.851A Open bite, right lower leg, initial encounter (principal); W54.0XXA Bitten by dog, initial encounter; E11.9 Type 2 diabetes mellitus without complications; G89.4 Chronic pain syndrome; Z98.84 Bariatric surgery status
CPT/HCPCS: 11042; 99213; G0463

== ENCOUNTER → 2020-03-19 14:25 | Outpatient (CLI) | payer MEDICARE, MEDICAID, SELFPAY ==
[2020-03-19 16:10] LABS: Absolute Lymphocyte Count 0.97 X10^3/uL (0.83-4.51); Absolute Neutrophil Count 4.2 X10^3/uL (2.0-7.7); Basophil# 0.04 X10^3/uL; Basophil% 0.7 % (0-1); Eosinophil# 0.17 X10^3/uL; Eosinophils% 2.9 % (0-5); Hematocrit 40.5 % (40-54); Lymphocyte # 0.97 X10^3/ul (4.0); Lymphocyte % 16.3 % (19-41); Mean Corp Hgb Conc 32.1 g/dL (32-36); Mean Corpuscular Hgb 31.3 pg (27.0-32.0); Mean Corpuscular Volume 97.4 fL (80-94); Mean Platelet Vol. 10.9 fl (6.2-12.0); Monocyte# 0.57 X10^3/uL; Monocyte% 9.6 % (0-10); NRBC Flagged by Analyzer 0 % (0-5); Neutrophil % 70.3 % (47-70); Platelet Count 218 K/mm3 (150-450); RBC Distribution Width SD 50.3 fl (35.1-43.9); Red Blood Count 4.16 M/mm3 (4.6-6.2)
[2020-03-19 16:40] LABS: AST(SGOT) 22 U/L (15-37); Alanine Aminotransfer ALT/SGPT 24 U/L (16-61); Albumin, Serum 3.6 g/dL (3.2-5.0); Alkaline Phosphatase 99 U/L (45-117); Anion Gap 5 (5-15); BUN 11 mg/dL (7-18); Calcium,Total 8.3 mg/dL (8.5-10.1); Chloride 108 mmol/L (98-107); EST Glomerular Filtration Rate 72 mL/min (>60); Est Glom Filt Rate - Afr Amer 88 mL/min (>60); Globulin 3.5 g/dL (2.2-4.2); Glucose 88 mg/dL (74-106); PSA,Total - Annual Screen 0.05 ng/mL (0.00-4.00); Potassium 4.5 mmol/L (3.5-5.1); Protein, Total 7.1 g/dL (6.4-8.2); Sodium Level 141 mmol/L (136-145); Thyroid Stim Hormone (TSH) 2.13 uIU/mL (0.358-3.74)
== END ==
PROVIDERS: PCP Family Medicine Geriatric Medicine; Visit Provider Family Medicine Geriatric Medicine
DX: R53.83 Other fatigue (principal); Z12.5 Encounter for screening for malignant neoplasm of prostate
CPT/HCPCS: 36415; 80053; 84153; 84443; 85025; G0103

== ENCOUNTER 2020-07-31 18:35 | Emergency (ER) | payer MEDICARE, MEDICAID, SELFPAY ==
[2020-07-31 18:36] VITALS: BP 143/100; PULSE 71; RESP 16; TEMP 36.2; O2SAT 97; BMI 39.2
--- NOTE | 2020-07-31 19:13 | ED.VISSUMM ---
- ER Visit Summary Date of Service: 07/31/20 Chief Complaint: Left leg pain History of Present Illness: The patient is a 60 M who presents with left leg pain that has been constant over the past 4 days. Patient states he was climbing up and down a ladder 5 days ago. Patient states that when he woke up 4 days ago he noted sharp pain in his left thigh. Patient states the pain is sharp initially but now is dull. Patient states the pain is worse with ambulation. Patient denies any trauma or injury. Patient denies any paresthesias or weakness. Patient admits to chronic back pain but denies any new back pain. Physical Examination: Vital signs are stable. Patient is afebrile. Patient is in no acute distress. Musculoskeletal exam reveals mild tenderness over the posterior left thigh. There is some pain with range of motion of the left hip. There is no obvious deformity noted. Pedal pulses are equal bilaterally. Strength is 5/5 bilaterally in the lower extremities. There are no sensory deficits noted. There is no tenderness over the lumbar spine or paraspinal muscles. Test Results: X-rays of the left hip were obtained. There is no acute fracture. There are mild degenerative changes noted. These were interpreted by myself. Radiologist also interpreted the x-rays and agreed. Emergency Department Course and Treatment: Patient was given a dose of [place] here. Patient was feeling better on reevaluation. Patient was instructed to use ice to the area. Patient was instructed to take Tylenol or ibuprofen as needed for pain. Patient was instructed to follow-up with his primary care physician in 5 to 7 days. Patient understood and was agreeable with the plan. All questions were answered. Disposition: Discharge home Impression: 1. Left thigh muscle strain This note was generated with [employer] software. It may contain incorrect words, spelling, and punctuation that were not noted in review of the chart prior to signing ED Disposition - Plan for ED Patient: Disposition: Home or Assisted Living Diagnosis: Muscle strain of left thigh Instructions: ED Strain Muscle Ext Referrals: Balwinder Pruitt Chi, MD [Primary Care Provider] - 3-5 Days
[2020-07-31] MEDS: HYDROcodone Bitartrate/Apap 5/325 Tablet PO (19:25)
--- NOTE | 2020-07-31 19:25 | RAD_ITS ---
STUDY: X-RAY - PELVIS AND LEFT HIP REASON FOR EXAM: Male, 60 years old. Left leg pain since climbing ladders on Monday. Pain is in the posterior left leg from hip to posterior knee. TECHNIQUE: 3 views of the pelvis and hip. COMPARISON: None. FINDINGS: There is a non-specific bowel gas pattern. Normal visualized soft tissue structures. Normal bilateral iliac wings, sacroiliac joints and visualized sacrum. Normal bilateral superior and inferior pubic rami. Normal pubic symphysis. Normal bilateral ischial tuberosities. Normal visualized left femoral head. Normal left acetabulum. There is mild articular joint space narrowing of the left hip. RAD/HIP, UNI W/ Pelvis 2-3 Views IMPRESSION: Mild arthrosis left hip without acute abnormality of the left hip or pelvis. Electronically Signed: Gerber Camp DO at 19:55 EST Tel [phone], Service support ,
[2020-07-31 21:53] VITALS: RESP 17
== END 2020-07-31 21:53 | disposition home or self-care (01) ==
PROVIDERS: Emergency Provider Emergency Medicine; PCP Family Medicine Geriatric Medicine
DX: S76.912A Strain of unspecified muscles, fascia and tendons at thigh level, left thigh, initial encounter (principal); X58.XXXA Exposure to other specified factors, initial encounter
CPT/HCPCS: 73502; 99283

== ENCOUNTER 2021-02-20 12:00 | Emergency (ER) | payer MEDICARE, MEDICAID, SELFPAY ==
[2020-09-29 09:04] VITALS: BMI 41.4
[2021-02-20 12:01] VITALS: BP 122/91; PULSE 83; RESP 18; TEMP 36.6; O2SAT 94; BMI 40.4
--- NOTE | 2021-02-20 12:17 | EKG12_ITS ---
Test Reason : WEAKNESS Blood Pressure : / mmHG Vent. Rate : 066 BPM Atrial Rate : 066 BPM P-R Int : 206 ms QRS Dur : 104 ms QT Int : 444 ms P-R-T Axes : 039 -49 014 degrees QTc Int : 465 ms Normal sinus rhythm Possible Pulmonary disease pattern Left anterior fascicular block Abnormal ECG Confirmed by PAUL VILLAGRAN, PAT ([id number]), communications editor ZAHRA INGRAM ([id number]) on 02/23/2021 10:05:15 AM Referred By: OBIE Confirmed By:PAT MILLER MD
--- NOTE | 2021-02-20 12:18 | EX.ED.DYSGE1 ---
HPI History of Present Illness Chief Complaint: Weakness Informant: patient Onset/Context/Timing Onset: Weeks Context: Gradual Onset Current Severity: Moderate Maximum Severity: Moderate Narrative Narrative: Patient presents secondary to feeling weak and drained for the past 2 or 3 weeks. He does report having some diarrhea the past couple days but states that is improving. No fever or chills. No cough or congestion. No vomiting. Patient states he just feels so exhausted and drained. [facility] Medical History AA (alcohol abuse) Arthritis CAD (coronary artery disease) CHF (congestive heart failure) COPD (chronic obstructive pulmonary disease) H/O: substance abuse History of colon cancer History of DVT (deep vein thrombosis) History of ETOH abuse History of suicide attempt Hypertension Migraine headache Morbid obesity Neuropathy Seizure disorder Home Medications budesonide 2 puff INHALATION BID 02/14/15 [History Last Taken 04/01/19] salmeterol 2 puff INHALATION DAILY 02/14/15 [History Last Taken 04/01/19] albuterol sulfate 1 - 2 puff INHALATION Q4H PRN PRN 04/02/19 [History Last Taken 04/02/19] escitalopram oxalate 10 mg PO DAILY 07/31/20 [History Last Taken Unknown] nitroglycerin 0.4 mg sublingual tablet 0.4 mg SUBLINGUAL Q5-15M PRN 09/28/20 [History Last Taken Unknown] bupropion HCl 150 mg tablet,12 hr sustained-release 150 mg PO BID 09/29/20 [History Last Taken Unknown] oxcarbazepine 150 mg tablet 150 mg PO BID #60 tab 09/29/20 [Rx Last Taken Unknown] oxcarbazepine 300 mg tablet 300 mg PO BID #60 tab 09/29/20 [Rx Last Taken Unknown] topiramate 50 mg tablet See Rx Instructions .ROUTE .COMPLEX #60 tab 09/29/20 [Rx Last Taken Unknown] ubrogepant 50 mg tablet 50 mg PO ONCE PRN #14 tab 09/29/20 [Rx Last Taken Unknown] Allergy/AdvReac Type Severity Reaction Status Date / Time meperidine HCl [From Demerol] Allergy Unknown Verified 09/29/20 08:56 Milk Containing Products Allergy Anaphylaxis Verified 09/29/20 08:56 penicillin G Allergy Hives Verified 09/29/20 08:56 wheat Allergy Other Verified 02/20/21 12:03 potassium AdvReac Other Verified 09/29/20 08:56 Surgical History History of bariatric surgery History of cervical spinal surgery Social History Smoking Status: Never smoker Electronic Cigarette Use: not used alcohol intake: former year quit: 1999 substance use type: former substance user Date of last use: 20 years, Fentynal 4 years, crack/cocaine, heroin, painkillers and other details: LSD ROS ROS ED Constitutional Constitutional ED: Denies chills or fever(s) Eyes Eyes: Denies change in vision ENT ENT ED: Denies sore throat Cardiovascular Cardiovascular: Denies chest pain Respiratory/Chest Respiratory/Chest: Denies cough or dyspnea Gastrointestinal Gastrointestinal: Reports diarrhea; Denies abdominal pain, nausea or vomiting Genitourinary Genitourinary ED: Denies dysuria Musculoskeletal Musculoskeletal: Denies back pain Integumentary Denies rash Neurologic Neurologic: Reports weakness; Denies headache(s) or paresthesias Psychiatric Psychiatric: Denies anxiety or depression Endocrine Endocrinology: Denies polydipsia or polyuria Allergic/Immunologic Allergic/Immunologic ED: Denies urticaria EXAM Physical Exam Const Vital Signs: 02/20/21 12:01 02/20/21 12:07 02/20/21 12:36 Temperature 97.8 F Temperature Source Temporal Pulse Rate 83 71 Respiratory Rate 18 20 H Respiratory Effort Normal Respiratory Pattern Normal Blood Pressure 122/91 H 112/92 H Blood Pressure Mean 101 98 Pulse Ox 94 95 Oxygen Delivery Method Room Air Room Air 02/20/21 13:44 Temperature Temperature Source Pulse Rate 67 Respiratory Rate 22 H Respiratory Effort Respiratory Pattern Blood Pressure 120/94 H Blood Pressure Mean 102 Pulse Ox 94 Oxygen Delivery Method Room Air Positive well nourished and well developed General Appearance ED: well developed HEENT Reports normocephalic and head/scalp atraumatic Eyes PERRL and EOMs intact bilaterally Neck supple Chest Wall inspection of chest normal and palpation of chest normal Resp normal respiratory effort and clear to auscultation bilaterally Cardio regular rate and regular rhythm GI normal to inspection, nondistended, normoactive bowel sounds Palpation: soft Extremity normal to inspection Neuro oriented x3 Neuro Narrative: No focal neurologic deficits. Sensorium / Orientation: alert Psych mental status grossly normal Skin no rashes or lesions noted MDM MDM MDM Narrative Medical decision making narrative: Patient was placed on threat monitoring analyst. EKG and labs were obtained. Lab Data Attestation: I reviewed the patient's lab results. Labs: Laboratory Results - last 24 hr 02/20/21 02/20/21 02/20/21 12:27 12:27 13:40 WBC 4.5 RBC 4.27 L Hgb 13.6 Hct 40.7 MCV 95.3 H MCH 31.9 MCHC 33.4 RDW Std Deviation 49.8 H RDW Coeff of Wenceslao 14.2 Plt Count 265 MPV 9.8 Immature Gran % (Auto) 0.200 Neut % (Auto) 71.8 H Lymph % (Auto) 16.1 L [place] % (Auto) 9.0 Eos % (Auto) 2.0 Baso % (Auto) 0.9 Absolute Neuts (auto) 3.3 Absolute Lymphs (auto) 0.73 L Nucleated RBC % 0 Sodium 138 Potassium 4.0 Chloride 110 H Carbon Dioxide 21.0 Anion Gap 7 BUN 13 Creatinine 1.30 Estim Creat Clear Calc 57.73 Est GFR (MDRD) Af Amer 72 Est GFR (MDRD) Non-Af 60 BUN/Creatinine Ratio 10.0 Glucose 83 Calcium 8.8 Total Bilirubin 0.60 Direct Bilirubin 0.19 AST 20 ALT 19 Alkaline Phosphatase 120 H Total Protein 7.0 Albumin 3.8 Globulin 3.2 Urine Color Yellow Urine Clarity Clear Urine pH 7.0 Ur Specific [place] 1.005 Urine Protein Negative Urine Glucose (UA) Normal Urine Ketones Negative Urine Occult Blood Negative Urine Nitrite Negative Urine Bilirubin Negative Urine Urobilinogen Normal Ur Leukocyte Esterase Negative Urine RBC 0 SEEN Urine WBC 0 SEEN Ur Squamous Epith Cells 0 SEEN Urine Bacteria 0 SEEN Urine Mucus 0 SEEN EKG Initial EKG: Attestation: I personally reviewed and interpreted this EKG as follows: Interpretation: Sinus Rhythm (Sinus at [address] change. No significant change when compared to prior study of March 2019.) Prior EKG tracings: available for review Prior: Unchanged Treatment and Re-Evaluation Comments:: Patient was given IV fluid here. Lab results are reviewed with the patient. At this time I see no acute findings to explain the patient's fatigue. Electrolytes are unremarkable. Urinalysis shows no sign of infection. Patient did have the Covid vaccine I believe Covid is very unlikely. We will send a Trileptal level. He was advised that this would take a couple days to return. He has an appointment to see his doctor on the . I encouraged him to take a list of his medications including what time of day he is taking them to see if any of these need to be adjusted. He voices understanding and agreement. Discharge Plan Triage Chief Complaint: Weakness ED Provider: Yolie Skinner Dx/Rx/DC Orders Clinical Impression: Fatigue Instructions: ED Weakness (Uncertain Cause) Prescriptions: No Action nitroglycerin 0.4 mg tablet, sublingual 0.4 mg SUBLINGUAL Q5-15M PRN (Reason: Chest Pain) RF: 0 bupropion HCl [Wellbutrin SR] 150 mg tablet sustained-release 12 hr 150 mg PO BID RF: 0 Ubrelvy 50 mg tablet 50 mg PO ONCE PRN (Reason: migraine) Qty: 14 RF: 0 topiramate [Topamax] 50 mg tablet See Rx Instructions .ROUTE .COMPLEX Qty: 60 RF: 3 oxcarbazepine 150 mg tablet 150 mg PO BID Qty: 60 RF: 3 oxcarbazepine 300 mg tablet 300 mg PO BID Qty: 60 RF: 3 ubrogepant [Ubrelvy] 50 mg tablet RF: 0 salmeterol 1 PUFF inhaler 2 puff INHALATION DAILY RF: 0 budesonide 1 PUFF inhaler 2 puff INHALATION BID RF: 0 albuterol sulfate 1 PUFF inhaler 1 - 2 puff INHALATION Q4H PRN PRN (Reason: Sob &/Or Wheezing) RF: 0 escitalopram oxalate 10 MG tablet 10 mg PO DAILY RF: 0 Primary Care Provider: Carrillo Judd Referrals: Carrillo Judd MD [Primary Care Provider] - Keep Tyrell appointment Activity Restrictions/Additional Instructions: We are sending blood work for your Trileptal level. This will take a couple days to result. If abnormal you will be contacted. Disposition Disposition: Home, self care
[2021-02-20 12:36] VITALS: BP 112/92; PULSE 71; RESP 20; O2SAT 95
[2021-02-20] MEDS: 0.9% Normal Saline 1,000 ML 150 ML IV (12:40)
[2021-02-20 12:42] LABS: Absolute Lymphocyte Count 0.73 X10^3/uL (0.83-4.51); Absolute Neutrophil Count 3.3 X10^3/uL (2.0-7.7); Basophil# 0.04 X10^3/uL; Basophil% 0.9 % (0-1); Eosinophil# 0.09 X10^3/uL; Hematocrit 40.7 % (40-54); Hemoglobin 13.6 g/dL (13.0-16.5); Lymphocyte # 0.73 X10^3/ul (0.83-4.51); Lymphocyte % 16.1 % (19-41); Mean Corp Hgb Conc 33.4 g/dL (32-36); Mean Corpuscular Hgb 31.9 pg (27.0-32.0); Mean Corpuscular Volume 95.3 fL (80-94); Mean Platelet Vol. 9.8 fl (6.2-12.0); Monocyte# 0.41 X10^3/uL; NRBC Flagged by Analyzer 0 % (0-5); Neutrophil # 3.26 X10^3/uL (2.7-7.7); Neutrophil % 71.8 % (47-70); Platelet Count 265 K/mm3 (150-450); RBC Distribution Width CV 14.2 % (11.6-14.6); RBC Distribution Width SD 49.8 fl (35.1-43.9); Red Blood Count 4.27 M/mm3 (4.6-6.2); White Blood Count 4.5 K/mm3 (4.4-11.0)
[2021-02-20 12:50] LABS: AST(SGOT) 20 U/L (15-37); Alanine Aminotransfer ALT/SGPT 19 U/L (16-61); Albumin, Serum 3.8 g/dL (3.2-5.0); Alkaline Phosphatase 120 U/L (45-117); Anion Gap 7 (5-15); BUN 13 mg/dL (7-18); Bilirubin, Direct 0.19 mg/dL (0.00-0.30); Calcium,Total 8.8 mg/dL (8.5-10.1); Chloride 110 mmol/L (98-107); EST Glomerular Filtration Rate 60 mL/min (>60); Est Glom Filt Rate - Afr Amer 72 mL/min (>60); Estimated Creatinine Clearance 57.73 ml/min; Globulin 3.2 g/dL (2.2-4.2); Glucose 83 mg/dL (74-106); Sodium Level 138 mmol/L (136-145)
[2021-02-20 13:44] VITALS: BP 120/94; PULSE 67; RESP 22; O2SAT 94
[2021-02-20 13:47] LABS: Bacteria 0 SEEN /hpf (None Seen); Mucous, Urine 0 SEEN /hpf (<or=2+); Red Blood Cells-Urine 0 SEEN /hpf (0-5); Squamous Epithelial Cells - UA 0 SEEN /hpf (0-5); White Blood Cells 0 SEEN /hpf (0-5)
[2021-02-20 13:51] LABS: Color, Urine Yellow (Yellow); Glucose, Dipstick Normal (Normal); Ketone-Dipstick Negative (Negative); Leukocyte Esterase-Dipstick Negative /ul (Negative); Nitrite-Dipstick Negative (Negative); Occult Blood-Urine Negative /ul (Negative); Protein-Dipstick Negative (Negative); Specific Gravity, Urine 1.005 (1.002-1.030); Urine Bilirubin Dipstick Negative (Negative); Urine Clarity Clear (Clear); Urine Urobilinogen Normal (Normal)
[2021-02-20 14:40] VITALS: BP 138/93; PULSE 61; RESP 16; O2SAT 95
--- NOTE | 2021-02-20 14:41 | ED.RN ---
Verified with laborer airport maintenance proper blood in lab for trileptal level. Pt. d/c to home.
[2021-02-25 22:39] LABS: Trileptal-Oxcarbazepine 12 ug/mL (10-35)
== END 2021-02-20 14:43 | disposition home or self-care (01) ==
PROVIDERS: Emergency Provider Emergency Medicine; PCP Family Medicine
DX: R53.83 Other fatigue (principal); E66.01 Morbid (severe) obesity due to excess calories; I25.10 Atherosclerotic heart disease of native coronary artery without angina pectoris; J44.9 Chronic obstructive pulmonary disease, unspecified; Z85.038 Personal history of other malignant neoplasm of large intestine; Z86.718 Personal history of other venous thrombosis and embolism; Z79.51 Long term (current) use of inhaled steroids; Z79.899 Other long term (current) drug therapy
CPT/HCPCS: 80048; 80076; 81001; 82542; 85025; 93005; 99284; J7030; A4216

== ENCOUNTER → 2021-03-05 06:35 | Outpatient (CLI) | payer MEDICARE, MEDICAID, SELFPAY ==
[2021-02-20 12:01] VITALS: BMI 40.4
--- NOTE | 2021-03-05 08:10 | RAD_ITS ---
STUDY: X-RAY CHEST REASON FOR EXAM: Male, 60 years old. Shortness of breath TECHNIQUE: PA and lateral views of the chest. COMPARISON: Comparison is made with prior study dated 03/18/2019. FINDINGS: The lungs are clear and expanded. There is no demonstrated pleural abnormality. Normal size heart. Normal mediastinum and leisa. Normal visualized pulmonary arteries. There is atherosclerotic tortuosity of the aortic arch and descending thoracic aorta. There are degenerative changes of the visualized thoracic spine. Normal visualized ribs, clavicles, and shoulders. History of prior bariatric surgery with a stable linear density in the left upper quadrant. RAD/Chest PA and Lateral IMPRESSION: No acute abnormality is seen. Electronically Signed: Carlos Shepherd MD at 9:48 EDT , Service support ,
[2021-03-05 08:57] LABS: Absolute Lymphocyte Count 0.59 X10^3/uL (0.83-4.51); Absolute Neutrophil Count 3.1 X10^3/uL (2.0-7.7); Basophil# 0.04 X10^3/uL; Eosinophil# 0.11 X10^3/uL; Eosinophils% 2.6 % (0-5); Hematocrit 41.2 % (40-54); Hemoglobin 13.1 g/dL (13.0-16.5); Lymphocyte # 0.59 X10^3/ul (0.83-4.51); Lymphocyte % 14.1 % (19-41); Mean Corp Hgb Conc 31.8 g/dL (32-36); Mean Corpuscular Hgb 31.6 pg (27.0-32.0); Mean Corpuscular Volume 99.3 fL (80-94); Mean Platelet Vol. 10.6 fl (6.2-12.0); Monocyte# 0.35 X10^3/uL; Monocyte% 8.4 % (0-10); NRBC Flagged by Analyzer 0 % (0-5); Neutrophil # 3.09 X10^3/uL (2.7-7.7); Neutrophil % 73.7 % (47-70); POSITIVE DIFFERENTIAL YES; Platelet Count 193 K/mm3 (150-450); Red Blood Count 4.15 M/mm3 (4.6-6.2); White Blood Count 4.2 K/mm3 (4.4-11.0)
[2021-03-05 09:02] LABS: Differential Indicated SCAN CRITERIA MET
[2021-03-05 09:27] LABS: Vitamin B12 489 pg/mL (211-911)
[2021-03-05 09:32] LABS: ALB/GLOB Ratio 1.1 RATIO (0.9-2.4); AST(SGOT) 21 U/L (15-37); Alanine Aminotransfer ALT/SGPT 19 U/L (16-61); Albumin, Serum 3.4 g/dL (3.2-5.0); Alkaline Phosphatase 99 U/L (45-117); Anion Gap 5 (5-15); BUN 10 mg/dL (7-18); BUN/Creat Ratio 9.7 RATIO (10-20); Calcium,Total 8.3 mg/dL (8.5-10.1); Chloride 110 mmol/L (98-107); Cholesterol 125 mg/dL (200); Creatinine, Serum 1.03 mg/dL (0.70-1.30); EST Glomerular Filtration Rate 78 mL/min (>60); Est Glom Filt Rate - Afr Amer 94 mL/min (>60); Globulin 3.1 g/dL (2.2-4.2); Glucose 86 mg/dL (74-106); High Density Lipoprotein 51 mg/dL; Potassium 4.5 mmol/L (3.5-5.1); Protein, Total 6.5 g/dL (6.4-8.2); Sodium Level 143 mmol/L (136-145); Thyroid Stim Hormone (TSH) 2.16 uIU/mL (0.358-3.74); Triglycerides 44 mg/dL; Very Low Density Lipoprotein 9 mg/dL (5-40)
[2021-03-05 09:34] LABS: Differential Comment D
[2021-03-05 12:53] LABS: Pathologist Review Reviewed
--- NOTE | 2021-03-06 13:57 | STRESSREP ---
Stress Test Report Date: 03/05/2021 Procedure: Pharmacologic stress nuclear imaging study Indications: Shortness of breath Consent: Per the patient Procedure: The patient underwent pharmacologic (Regadenoson) evaluation with a peak heart rate of 81 beats per minute (50%predicted maximal heart rate) and a peak blood pressure of 142/72 mmHg. The baseline ECG demonstrated normal sinus rhythm. EKG during lexiscan infusion revealed no significant regional wall motion abnormalities. EKG post infusion revealed no significant regional wall motion abnormalities [There were no cardiac dysrhythmias pretest, during pharmacologic infusion, or recovery]. [There was no complaint of chest discomfort during pharmacologic infusion or recovery]. The examination was discontinued secondary to completion of protocol. Impression: 1. Lexiscan stress test test is negative for Lexiscan infusion induced EKG changes of ischemia. 2. Lexiscan stress test test is negative for Lexiscan infusion induced chest pain. 3. Results of the nuclear portion of the test is as below Myocardial perfusion imaging study: Technique: The patient was injected with 15 millicuries of technetium 99m Cardiolite and subsequently rest SPECT Cardiolite nuclear imaging was obtained in the horizontal long, vertical long, and short axis views. The patient underwent pharmacologic [Regadenoson 0.4mg] evaluation. Please see above for details. The patient was injected with 45 millicuries of technetium 99m Cardiolite and subsequently stress SPECT Cardiolite nuclear imaging was obtained in the horizontal long, vertical long, and short axis views. A gated Cardiolite study at peak stress was obtained. Interpretation: Rest and stress SPECT Cardiolite nuclear imaging status post realignment, normalization, and attenuation correction demonstrate mild fixed apical defect. There is no significant reversibility suggestive of significant ischemia. Gated images reveal mild apical hypokinesis. These findings are suggestive of possible prior apical myocardial infarction with no evidence of ischemia. The reported LVEF is 52%. Impression: 1. There is no evidence of ischemia. Possible prior apical myocardial infarction. Mild apical hypokinesis. 2. Estimated ejection fraction is 52%. This note was generated with [employer] software. It may contain incorrect words, spelling, and punctuation that were not noted in checking the note before signing.
[2021-03-10 16:09] LABS: Free Kappa Light Chains 15.9 mg/L (3.3-19.4); Free Lambda Light Chains 11.3 mg/L (5.7-26.3); Vitamin B1, Thiamine 70.8 nmol/L (66.5-200.0)
[2021-03-10 21:10] LABS: Trileptal-Oxcarbazepine 5 ug/mL (10-35)
== END ==
PROVIDERS: Psychiatry & Neurology Neurology; PCP Family Medicine; Referring Provider Family Medicine; Visit Provider Family Medicine
DX: R06.02 Shortness of breath (principal); R53.83 Other fatigue; F44.5 Conversion disorder with seizures or convulsions; G62.9 Polyneuropathy, unspecified; E78.00 Pure hypercholesterolemia, unspecified
CPT/HCPCS: 36415; 71046; 78452; 80053; 80061; 82542; 82607; 82746; 83883; 84425; 84443; 85025; 93017; A9500; A4216; J2785

== ENCOUNTER 2021-05-11 16:13 | Emergency (ER) | payer MEDICARE, MEDICAID, SELFPAY ==
[2021-05-11] VITALS (7 sets, daily range): BP systolic 129–178; BP diastolic 75–114; PULSE 56–70; RESP 16–20; TEMP 36.2; O2SAT 92–96; BMI 38.7
--- NOTE | 2021-05-11 17:14 | CT_ITS ---
STUDY: CT BRAIN WITHOUT CONTRAST REASON FOR EXAM: Male, 61 years old. Headache RADIATION DOSAGE (If Supplied By Facility): CTDIvol = ( 44.99 ) mGy, DLP = ( 812.98 ) mGycm TECHNIQUE: Transaxial CT imaging of the brain was performed without administration of intravenous contrast material. Individualized dose optimization techniques were used for this CT. COMPARISON: MRI 12/06/2017 FINDINGS: Normal soft tissue structures. Normal calvarium. Normal size ventricles and extra-axial spaces for the patient''s age. Normal white matter tracts of the cerebral hemispheres. Normal basal ganglia and thalami. Normal brainstem. Normal cerebellum. There is no intracranial hemorrhage. There are no findings of an acute ischemic infarction. Normal visualized paranasal sinuses. CT/Brain/Head without Contrast IMPRESSION: Normal unenhanced CT scan of the brain. Electronically Signed: Roberto Murguia MD at 18:07 EDT , Service support ,
--- NOTE | 2021-05-11 17:14 | EKG12_ITS ---
Test Reason : HYPERTENSION Blood Pressure : / mmHG Vent. Rate : 076 BPM Atrial Rate : 076 BPM P-R Int : 186 ms QRS Dur : 088 ms QT Int : 416 ms P-R-T Axes : 039 -47 028 degrees QTc Int : 468 ms Normal sinus rhythm Left anterior fascicular block Poor R wave progression Abnormal ECG Confirmed by PAUL VILLAGRAN, PAT ([id number]), associate editor ZAHRA INGRAM ([id number]) on 05/13/2021 10:05:52 AM Referred By: MARÍA Confirmed By:PAT MILLER MD
[2021-05-11] MEDS: Morphine 4 MG/ML Syringe IV ×2 (17:26→18:40)
[2021-05-11] MEDS: Labetalol (Prefilled) 20 MG/4 ML 10 MG IV (17:27)
--- NOTE | 2021-05-11 17:28 | EDS_ITS ---
HPI History of Present Illness Chief Complaint: Hypertension Informant: patient Onset/Context/Timing Onset: Today Context: Sudden Onset Timing: Continuous Quality: Pressure Location: Right side of head Worsened by: Nothing Relieved by: Nothing Narrative Narrative: Patient presents with headache and sore throat that became worse today. Patient states he was outside working on his chainsaw when his headache began. Patient states it began rather suddenly. Patient states it is worse over the right side of his head. Patient describes it as a pressure. Patient states pain radiates down into his neck. Patient states nothing makes it better nothing makes it worse. Patient admits to nausea but denies any vomiting. Patient denies any fevers or chills. Patient denies any visual changes. Patient denies any history of high blood pressure. [facility], [facility] Medical History AA (alcohol abuse) Abscess of right leg Arthritis Bronchial asthma Chronic pain syndrome COPD (chronic obstructive pulmonary disease) DM type 2 (diabetes mellitus, type 2) Dog bite of right calf Epilepsy undetermined as to focal or generalized, intractable Esophageal reflux Essential (primary) hypertension H/O: substance abuse History of colon cancer History of DVT (deep vein thrombosis) History of ETOH abuse History of suicide attempt Hyperlipidemia Migraine headache Morbid obesity Necrotizing soft tissue infection Neuropathy Personal hx-rectal/anal malignancy Post traumatic stress disorder (PTSD) Seizure disorder Home Medications budesonide 2 puff INHALATION BID 02/14/15 [History Last Taken 04/01/19] salmeterol 2 puff INHALATION DAILY 02/14/15 [History Last Taken 04/01/19] albuterol sulfate 1 - 2 puff INHALATION Q4H PRN PRN 04/02/19 [History Last Taken 04/02/19] escitalopram oxalate 10 mg PO DAILY 07/31/20 [History Last Taken Unknown] nitroglycerin 0.4 mg sublingual tablet 0.4 mg SUBLINGUAL Q5-15M PRN 09/28/20 [History Last Taken Unknown] bupropion HCl 150 mg tablet,12 hr sustained-release 150 mg PO BID 09/29/20 [History Last Taken Unknown] oxcarbazepine 150 mg tablet 150 mg PO BID #60 tab 09/29/20 [Rx Last Taken Unknown] topiramate 50 mg tablet See Rx Instructions .ROUTE .COMPLEX #60 tab 09/29/20 [Rx Last Taken Unknown] ubrogepant 50 mg tablet 50 mg PO ONCE PRN #14 tab 09/29/20 [Rx Last Taken Unknown] oxcarbazepine 300 mg tablet 300 mg PO BID tab 05/05/21 [History Last Taken Unknown] Allergy/AdvReac Type Severity Reaction Status Date / Time meperidine HCl [From Demerol] Allergy Unknown Verified 05/11/21 16:14 Milk Containing Products Allergy Anaphylaxis Verified 05/11/21 16:14 penicillin G Allergy Hives Verified 05/11/21 16:14 wheat Allergy Other Verified 05/11/21 16:14 potassium AdvReac Other Verified 05/11/21 16:14 Surgical History History of bariatric surgery (2000) History of cervical spinal surgery History of left heart catheterization (03/1997) Social History Smoking Status: Never smoker Electronic Cigarette Use: not used alcohol intake: former year quit: 1999 substance use type: former substance user Date of last use: 20 years, Fentynal 4 years, crack/cocaine, heroin, painkillers and other details: LSD ROS ROS ED Constitutional Constitutional ED: Denies chills or fever(s) Eyes Eyes: Denies blurry vision or change in vision ENT ENT ED: Reports sore throat; Denies rhinorrhea Cardiovascular Cardiovascular: Denies chest pain or palpitations Respiratory/Chest Respiratory/Chest: Denies cough or dyspnea Gastrointestinal Gastrointestinal: Reports nausea; Denies vomiting Genitourinary Genitourinary ED: Denies dysuria or hematuria Musculoskeletal Musculoskeletal: Reports neck pain; Denies back pain Integumentary Denies abscess or rash Neurologic Neurologic: Reports headache(s); Denies weakness Allergic/Immunologic Allergic/Immunologic ED: Denies mouth swelling or urticaria EXAM Physical Exam Const Vital Signs: 05/11/21 16:14 05/11/21 17:01 05/11/21 17:42 Temperature 97.2 F L Temperature Source Temporal Pulse Rate 68 67 70 Respiratory Rate 18 20 H 18 Blood Pressure 178/114 H 129/91 H Blood Pressure Mean 135 103 Pulse Ox 95 95 95 Oxygen Delivery Method Room Air Room Air Room Air 05/11/21 17:50 05/11/21 18:41 05/11/21 20:10 Temperature Temperature Source Pulse Rate 70 64 58 L Respiratory Rate 18 16 16 Blood Pressure 129/91 H 152/113 H 140/92 H Blood Pressure Mean 103 126 108 Pulse Ox 95 96 95 Oxygen Delivery Method Room Air Room Air Room Air Positive well nourished and well developed General Appearance ED: well developed HEENT Reports moist mucous membranes Neck supple and no JVD Resp normal respiratory effort and clear to auscultation bilaterally Cardio regular rate, regular rhythm and no murmurs GI normal to inspection, nondistended, normoactive bowel sounds and non-tender Palpation: soft Extremity normal to inspection General Extremety ED: Negative for edema or tenderness General Extremity: Negative for edema Neuro oriented x3, CN's II-XII intact bilaterally and no sensory deficits noted Neuro Narrative: Strength is 5/5 bilaterally upper extremities and left lower extremity. Strength is 5/5 and extension of the big toe and plantar flexion of the right ankle. Patient has weakness in his hip flexors on the right. Patient states this is chronic from prior injury. Sensorium / Orientation: alert Psych mental status grossly normal Skin no rashes or lesions noted MDM MDM MDM Narrative Medical decision making narrative: Patient was given a dose of morphine initially.. On my interpretation, there is normal sinus rhythm with a rate of 76. There is left anterior fascicular block and left axis deviation at -47. [place] interval, QRS interval, and QTc intervals are normal. There are no acute ST or T wave changes. CT scan of the brain was obtained. There is no acute intracranial abnormality. This was interpreted by the radiologist and reviewed by myself. CBC and comprehensive metabolic profile were within normal limits. PT with INR and PTT were normal. Lactate was normal. Urinalysis does not show any evidence of urinary tract infection. Patient was given a dose of labetalol. Patient's blood pressure improved after this. Patient was given a repeat dose of morphine. Patient still complained of headache on the right side of his head. Because of this, CTA of the head was obtained. There is no aneurysm or bleeding noted. There is no acute abnormality. Patient was given a dose of Compazine and Benadryl. Lab Data Labs: Laboratory Results - last 24 hr 05/11/21 05/11/21 05/11/21 17:05 17:05 17:30 WBC 5.6 RBC 4.15 L Hgb 13.9 Hct 40.4 MCV 97.3 H MCH 33.5 H MCHC 34.4 RDW Std Deviation 53.1 H RDW Coeff of Wenceslao 14.8 H Plt Count 238 MPV 10.0 Immature Gran % (Auto) 0.200 Neut % (Auto) 67.2 Lymph % (Auto) 19.5 [place] % (Auto) 9.9 Eos % (Auto) 2.3 Baso % (Auto) 0.9 Absolute Neuts (auto) 3.7 Absolute Lymphs (auto) 1.08 Nucleated RBC % 0 PT 13.2 INR 1.1 APTT 28.8 Sodium 140 Potassium 4.5 Chloride 110 H Carbon Dioxide 27.0 Anion Gap 3 L BUN 12 Creatinine 1.03 Estim Creat Clear Calc 74.36 Est GFR (MDRD) Af Amer 94 Est GFR (MDRD) Non-Af 78 BUN/Creatinine Ratio 11.7 Glucose 86 Lactic Acid Calcium 9.1 Total Bilirubin 0.50 AST 22 ALT 24 Alkaline Phosphatase 103 Total Protein 7.1 Albumin 3.8 Globulin 3.3 Albumin/Globulin Ratio 1.2 Urine Color Urine Clarity Urine pH Ur Specific [place] Urine Protein Urine Glucose (UA) Urine Ketones Urine Occult Blood Urine Nitrite Urine Bilirubin Urine Urobilinogen Ur Leukocyte Esterase Urine RBC Urine WBC Ur Squamous Epith Cells Urine Bacteria Urine Mucus 05/11/21 05/11/21 17:30 18:30 WBC RBC Hgb Hct MCV MCH MCHC RDW Std Deviation RDW Coeff of Wenceslao Plt Count MPV Immature Gran % (Auto) Neut % (Auto) Lymph % (Auto) [place] % (Auto) Eos % (Auto) Baso % (Auto) Absolute Neuts (auto) Absolute Lymphs (auto) Nucleated RBC % PT INR APTT Sodium Potassium Chloride Carbon Dioxide Anion Gap BUN Creatinine Estim Creat Clear Calc Est GFR (MDRD) Af Amer Est GFR (MDRD) Non-Af BUN/Creatinine Ratio Glucose Lactic Acid 0.8 Calcium Total Bilirubin AST ALT Alkaline Phosphatase Total Protein Albumin Globulin Albumin/Globulin Ratio Urine Color Yellow Urine Clarity Clear Urine pH 7.0 Ur Specific [place] 1.015 Urine Protein Negative Urine Glucose (UA) Normal Urine Ketones Negative Urine Occult Blood Negative Urine Nitrite Negative Urine Bilirubin Negative Urine Urobilinogen Normal Ur Leukocyte Esterase Negative Urine RBC 0 SEEN Urine WBC 0 SEEN Ur Squamous Epith Cells 0 SEEN Urine Bacteria 0 SEEN Urine Mucus 0 SEEN Radiography Diagnostic Testing: Radiology Impression Brain CT 05/11/21 17:14 IMPRESSION: Normal unenhanced CT scan of the brain. Electronically Signed: Roberto Murguia MD at 18:07 EDT , Service support , Head CTA 05/11/21 19:41 IMPRESSION: Normal [place] without a demonstrated aneurysm or hemodynamically significant stenosis. Electronically Signed: Roberto Murguia MD at 20:48 EDT , Service support , EKG Initial EKG: Attestation: I personally reviewed and interpreted this EKG as follows: Interpretation: Sinus Rhythm, No Acute Injury Pattern and LAFB Prior EKG tracings: available for review Prior: Unchanged (02/20/2021) Discharge Plan Triage Chief Complaint: Hypertension ED Provider: Miguel Angel Riojas Dx/Rx/DC Orders Clinical Impression: Headache, Hypertension Instructions: ED Hypertension, To Be Confirmed, ED Pain, Acute, Uncertain Cause Prescriptions: No Action nitroglycerin 0.4 mg tablet, sublingual 0.4 mg SUBLINGUAL Q5-15M PRN (Reason: Chest Pain) RF: 0 bupropion HCl [Wellbutrin SR] 150 mg tablet sustained-release 12 hr 150 mg PO BID RF: 0 Ubrelvy 50 mg tablet 50 mg PO ONCE PRN (Reason: migraine) Qty: 14 RF: 0 topiramate [Topamax] 50 mg tablet See Rx Instructions .ROUTE .COMPLEX Qty: 60 RF: 3 oxcarbazepine 150 mg tablet 150 mg PO BID Qty: 60 RF: 3 oxcarbazepine 300 mg tablet 300 mg PO BID RF: 0 salmeterol 1 PUFF inhaler 2 puff INHALATION DAILY RF: 0 budesonide 1 PUFF inhaler 2 puff INHALATION BID RF: 0 albuterol sulfate 1 PUFF inhaler 1 - 2 puff INHALATION Q4H PRN PRN (Reason: Sob &/Or Wheezing) RF: 0 escitalopram oxalate 10 MG tablet 10 mg PO DAILY RF: 0 Primary Care Provider: Carrillo Judd Referrals: Carrillo Judd MD [Primary Care Provider] - 3-5 Days Disposition Disposition: Home, Self Care
[2021-05-11 17:47] LABS: Absolute Lymphocyte Count 1.08 X10^3/uL (0.83-4.51); Absolute Neutrophil Count 3.7 X10^3/uL (2.0-7.7); Basophil# 0.05 X10^3/uL; Basophil% 0.9 % (0-1); Eosinophil# 0.13 X10^3/uL; Eosinophils% 2.3 % (0-5); Hematocrit 40.4 % (40-54); Hemoglobin 13.9 g/dL (13.0-16.5); Lymphocyte # 1.08 X10^3/ul (0.83-4.51); Lymphocyte % 19.5 % (19-41); Mean Corp Hgb Conc 34.4 g/dL (32-36); Mean Corpuscular Hgb 33.5 pg (27.0-32.0); Mean Corpuscular Volume 97.3 fL (80-94); Monocyte# 0.55 X10^3/uL; Monocyte% 9.9 % (0-10); NRBC Flagged by Analyzer 0 % (0-5); Neutrophil # 3.73 X10^3/uL (2.7-7.7); Neutrophil % 67.2 % (47-70); Platelet Count 238 K/mm3 (150-450); RBC Distribution Width CV 14.8 % (11.6-14.6); RBC Distribution Width SD 53.1 fl (35.1-43.9); Red Blood Count 4.15 M/mm3 (4.6-6.2); White Blood Count 5.6 K/mm3 (4.4-11.0)
[2021-05-11 17:59] LABS: International Normalized Ratio 1.1; Prothrombin Time (Protime)PT. 13.2 SECONDS (11.7-14.9)
[2021-05-11 18:01] LABS: Partial Thromboplast Time 28.8 Seconds (24.1-36.2)
[2021-05-11 18:01] LABS: ALB/GLOB Ratio 1.2 RATIO (0.9-2.4); AST(SGOT) 22 U/L (15-37); Alanine Aminotransfer ALT/SGPT 24 U/L (16-61); Albumin, Serum 3.8 g/dL (3.2-5.0); Alkaline Phosphatase 103 U/L (45-117); Anion Gap 3 (5-15); BUN 12 mg/dL (7-18); BUN/Creat Ratio 11.7 RATIO (10-20); Calcium,Total 9.1 mg/dL (8.5-10.1); Chloride 110 mmol/L (98-107); Creatinine, Serum 1.03 mg/dL (0.70-1.30); EST Glomerular Filtration Rate 78 mL/min (>60); Est Glom Filt Rate - Afr Amer 94 mL/min (>60); Estimated Creatinine Clearance 74.36 ml/min; Globulin 3.3 g/dL (2.2-4.2); Glucose 86 mg/dL (74-106); Potassium 4.5 mmol/L (3.5-5.1); Protein, Total 7.1 g/dL (6.4-8.2); Sodium Level 140 mmol/L (136-145)
[2021-05-11 18:21] LABS: Lactic Acid 0.8 mmol/L (0.4-1.9)
[2021-05-11 18:54] LABS: Bacteria 0 SEEN /hpf (None Seen); Mucous, Urine 0 SEEN /hpf (<or=2+); Red Blood Cells-Urine 0 SEEN /hpf (0-5); Squamous Epithelial Cells - UA 0 SEEN /hpf (0-5); White Blood Cells 0 SEEN /hpf (0-5)
[2021-05-11 19:08] LABS: Color, Urine Yellow (Yellow); Glucose, Dipstick Normal (Normal); Ketone-Dipstick Negative (Negative); Leukocyte Esterase-Dipstick Negative /ul (Negative); Nitrite-Dipstick Negative (Negative); Occult Blood-Urine Negative /ul (Negative); Protein-Dipstick Negative (Negative); Specific Gravity, Urine 1.015 (1.002-1.030); Urine Bilirubin Dipstick Negative (Negative); Urine Clarity Clear (Clear); Urine Urobilinogen Normal (Normal)
--- NOTE | 2021-05-11 19:41 | CT_ITS ---
STUDY: CTA OF THE BRAIN REASON FOR EXAM: Male, 61 years old. Headache RADIATION DOSAGE (If Supplied By Facility): CTDIvol = ( 20.53 ) mGy, DLP = ( 414.17 ) mGycm TECHNIQUE: CT angiography was performed with a multi-detector CT scanner. Data acquisition was obtained from the skull base through the vertex following intravenous administration of 100 CC ISOVUE 370. MIP images were reconstructed from the axial data set. Post-processing of the angiographic images was performed, with multiplanar reformation and 3D reconstruction. Individualized dose optimization techniques were used for this CT. COMPARISON: None. FINDINGS: Normal bilateral petrous carotid arteries. Normal right cavernous carotid artery with a normal supraclinoid bifurcation. Normal left cavernous carotid artery with a normal supraclinoid bifurcation. Normal right A1 segments of the anterior cerebral artery. Normal left A1 segments of the anterior cerebral artery. Normal intact anterior communicating artery (ACOM). Normal bilateral A2 segments of the anterior cerebral arteries. Normal right M1 and M2 segments of the middle cerebral arteries, with a normal M1 bifurcation. Normal left M1 and M2 segments of the middle cerebral arteries, with a normal M1 bifurcation. Normal right posterior communicating artery (PCOM). Normal left posterior communicating artery (PCOM). Normal bilateral vertebral arteries. Normal basilar artery with a normal basilar bifurcation. The visualized bilateral superior cerebellar (SCA) arteries are normal. Normal bilateral P1, P2 and visualized P3 segments of the posterior cerebral arteries. There is no demonstrated aneurysm of the [place]. There is no demonstrated abnormality of the visualized brain. CT/CTA Head W/WO Contrast IMPRESSION: Normal [place] without a demonstrated aneurysm or hemodynamically significant stenosis. Electronically Signed: Roberto Murguia MD at 20:48 EDT , Service support ,
[2021-05-11] MEDS: DiphenhydrAMINE 50 MG/ML Syringe 25 MG IV (20:08)
[2021-05-11] MEDS: proCHLORPERazine 10 MG/2 ML Vial IV (20:09)
== END 2021-05-11 21:55 | disposition home or self-care (01) ==
PROVIDERS: Emergency Provider Emergency Medicine; PCP Family Medicine
DX: R51.9 Headache, unspecified (principal); I10 Essential (primary) hypertension; Z91.5 Personal history of self-harm; Z86.718 Personal history of other venous thrombosis and embolism; Z85.038 Personal history of other malignant neoplasm of large intestine
CPT/HCPCS: 70450; 70496; 80053; 81001; 83605; 85025; 85610; 85730; 93005; 96374; 96375; 96376; 99283; J7030; Q9967; A4216

== ENCOUNTER 2021-11-04 10:48 | Outpatient (CLI) | payer MEDICARE, MEDICAID, SELFPAY ==
[2021-11-04 12:07] LABS: AST(SGOT) 23 U/L (15-37); Alanine Aminotransfer ALT/SGPT 22 U/L (16-61); Albumin, Serum 3.9 g/dL (3.2-5.0); Alkaline Phosphatase 124 U/L (45-117); Anion Gap 4 (5-15); BUN 16 mg/dL (7-18); BUN/Creat Ratio 12.8 RATIO (10-20); Calcium,Total 9.3 mg/dL (8.5-10.1); Chloride 106 mmol/L (98-107); Cholesterol 169 mg/dL (200); Creatinine, Serum 1.25 mg/dL (0.70-1.30); EST Glomerular Filtration Rate 62 mL/min (>60); Est Glom Filt Rate - Afr Amer 75 mL/min (>60); Globulin 3.9 g/dL (2.2-4.2); Glucose 78 mg/dL (74-106); High Density Lipoprotein 60 mg/dL; Potassium 4.3 mmol/L (3.5-5.1); Protein, Total 7.8 g/dL (6.4-8.2); Sodium Level 138 mmol/L (136-145); Triglycerides 56 mg/dL; Very Low Density Lipoprotein 11 mg/dL (5-40)
== END 2021-11-04 23:59 | disposition home or self-care (01) ==
LOC: LAB 10:53
PROVIDERS: PCP Family Medicine; Referring Provider Family Medicine; Visit Provider Family Medicine
DX: E78.00 Pure hypercholesterolemia, unspecified (principal)
CPT/HCPCS: 36415; 80053; 80061

== ENCOUNTER 2021-11-17 11:49 | Outpatient (CLI) | payer MEDICARE, MEDICAID, SELFPAY ==
--- NOTE | 2021-11-17 11:52 | RAD_ITS ---
STUDY: X-RAY CHEST REASON FOR EXAM: Male, 61 years old. CHEST PAIN COMPARISON: 03/05/2021 TECHNIQUE: XR Chest 2 Views FINDINGS: There is no demonstrated pleural abnormality. Normal heart size. Normal mediastinum and leisa. Normal visualized pulmonary arteries. There are diffuse degenerative changes of the visualized thoracic spine. There is degenerative osteoarthritis of the bilateral shoulders. There is no demonstrated abnormality of the visualized soft tissue structures of the upper abdomen. RAD/Chest PA and Lateral IMPRESSION: There are no acute findings. Electronically Signed: Kirk Barnett MD at 17:01 EST ,
[2021-11-17 15:42] LABS: Absolute Lymphocyte Count 0.72 X10^3/uL (0.83-4.51); Absolute Neutrophil Count 3.7 X10^3/uL (2.0-7.7); Basophil# 0.05 X10^3/uL; Eosinophil# 0.13 X10^3/uL; Eosinophils% 2.6 % (0-5); Hematocrit 45.8 % (40-54); Hemoglobin 15.1 g/dL (13.0-16.5); Lymphocyte # 0.72 X10^3/ul (0.83-4.51); Lymphocyte % 14.1 % (19-41); Mean Corpuscular Hgb 32.1 pg (27.0-32.0); Mean Corpuscular Volume 97.4 fL (80-94); Mean Platelet Vol. 10.1 fl (6.2-12.0); Monocyte# 0.46 X10^3/uL; NRBC Flagged by Analyzer 0 % (0-5); Neutrophil # 3.72 X10^3/uL (2.7-7.7); Neutrophil % 73.1 % (47-70); Platelet Count 300 K/mm3 (150-450); RBC Distribution Width CV 13.2 % (11.6-14.6); RBC Distribution Width SD 47.7 fl (35.1-43.9); White Blood Count 5.1 K/mm3 (4.4-11.0)
[2021-11-17 15:46] LABS: Erythrocyte Sedimentation Rate 8 mm/hr (0-20)
[2021-11-17 16:06] LABS: AST(SGOT) 22 U/L (15-37); Alanine Aminotransfer ALT/SGPT 25 U/L (16-61); Albumin, Serum 3.8 g/dL (3.2-5.0); Alkaline Phosphatase 109 U/L (45-117); Anion Gap 3 (5-15); BUN 17 mg/dL (7-18); BUN/Creat Ratio 15.7 RATIO (10-20); Calcium,Total 8.8 mg/dL (8.5-10.1); Chloride 106 mmol/L (98-107); Creatinine, Serum 1.08 mg/dL (0.70-1.30); EST Glomerular Filtration Rate 74 mL/min (>60); Est Glom Filt Rate - Afr Amer 89 mL/min (>60); Globulin 3.8 g/dL (2.2-4.2); Glucose 86 mg/dL (74-106); Potassium 4.4 mmol/L (3.5-5.1); Protein, Total 7.6 g/dL (6.4-8.2); Sodium Level 139 mmol/L (136-145)
== END 2021-11-17 23:59 | disposition home or self-care (01) ==
LOC: MTLAB 11:50
PROVIDERS: PCP Family Medicine; Referring Provider Family Medicine; Visit Provider Family Medicine
DX: R06.00 Dyspnea, unspecified (principal); R53.81 Other malaise
CPT/HCPCS: 36415; 71046; 80053; 84443; 85025; 85652

== ENCOUNTER → 2022-01-27 | Outpatient (CLI) | payer MEDICARE, MEDICAID, SELFPAY ==
[2022-01-27 12:46] LABS: ALB/GLOB Ratio 1.1 RATIO (0.9-2.4); AST(SGOT) 50 U/L (15-37); Alanine Aminotransfer ALT/SGPT 42 U/L (16-61); Albumin, Serum 3.8 g/dL (3.2-5.0); Alkaline Phosphatase 116 U/L (45-117); Anion Gap 7 (5-15); BUN 22 mg/dL (7-18); BUN/Creat Ratio 17.6 RATIO (10-20); Calcium,Total 8.9 mg/dL (8.5-10.1); Chloride 105 mmol/L (98-107); Cholesterol 159 mg/dL (200); Creatinine, Serum 1.25 mg/dL (0.70-1.30); EST Glomerular Filtration Rate 62 mL/min (>60); Est Glom Filt Rate - Afr Amer 75 mL/min (>60); Globulin 3.4 g/dL (2.2-4.2); Glucose 90 mg/dL (74-106); High Density Lipoprotein 62 mg/dL; Potassium 4.1 mmol/L (3.5-5.1); Protein, Total 7.2 g/dL (6.4-8.2); Sodium Level 139 mmol/L (136-145); Triglycerides 66 mg/dL; Very Low Density Lipoprotein 13 mg/dL (5-40)
== END | disposition home or self-care (01) ==
PROVIDERS: PCP Family Medicine; Referring Provider Family Medicine; Visit Provider Family Medicine
DX: E78.00 Pure hypercholesterolemia, unspecified (principal)
CPT/HCPCS: 36415; 80053; 80061

== ENCOUNTER 2022-02-13 14:44 | Emergency (ER) | payer MEDICARE, MEDICAID, SELFPAY ==
[2022-02-13 14:45] VITALS: BP 132/89; PULSE 81; RESP 16; TEMP 36.8; O2SAT 96; BMI 38.2
--- NOTE | 2022-02-13 15:06 | EX.ED.UPPERE ---
HPI History of Present Illness Chief Complaint: Laceration Narrative Narrative: 61-year-old male presenting with a laceration to the right thumb. It is a small skin flap. Patient states he was trying to trim back some IV with a knife in his left hand because he is left-hand dominant and inadvertently sliced the medial aspect of his right thumb. Initially the bleeding was able to be controlled however after he kept using his hand in the garden it started to bleed again. Patient did rinse this out thoroughly and states that he was able to put some tight dressings on it and stop the bleeding. He currently has no bleeding. No significant pain. No numbness or tingling. Last tetanus is unknown. [facility] Medical History AA (alcohol abuse) Abscess of right leg Arthritis Bronchial asthma Chronic pain syndrome COPD (chronic obstructive pulmonary disease) DM type 2 (diabetes mellitus, type 2) Dog bite of right calf Epilepsy undetermined as to focal or generalized, intractable Esophageal reflux Essential (primary) hypertension H/O: substance abuse History of colon cancer History of DVT (deep vein thrombosis) History of ETOH abuse History of suicide attempt Hyperlipidemia Migraine headache Morbid obesity Necrotizing soft tissue infection Neuropathy Personal hx-rectal/anal malignancy Post traumatic stress disorder (PTSD) Seizure disorder Home Medications budesonide 2 puff INHALATION BID 02/14/15 [History Last Taken 04/01/19] salmeterol 2 puff INHALATION DAILY 02/14/15 [History Last Taken 04/01/19] albuterol sulfate 1 - 2 puff INHALATION Q4H PRN PRN 04/02/19 [History Last Taken 04/02/19] escitalopram oxalate 10 mg PO DAILY 07/31/20 [History Last Taken Unknown] nitroglycerin 0.4 mg sublingual tablet 0.4 mg SUBLINGUAL Q5-15M PRN 09/28/20 [History Last Taken Unknown] bupropion HCl 150 mg tablet,12 hr sustained-release 150 mg PO BID 09/29/20 [History Last Taken Unknown] oxcarbazepine 150 mg tablet 150 mg PO BID #60 tab 09/29/20 [Rx Last Taken Unknown] topiramate 50 mg tablet See Rx Instructions .ROUTE .COMPLEX #60 tab 09/29/20 [Rx Last Taken Unknown] ubrogepant 50 mg tablet 50 mg PO ONCE PRN #14 tab 09/29/20 [Rx Last Taken Unknown] oxcarbazepine 300 mg tablet 300 mg PO BID tab 05/05/21 [History Last Taken Unknown] Allergy/AdvReac Type Severity Reaction Status Date / Time meperidine HCl [From Demerol] Allergy Unknown Verified 02/13/22 14:47 Milk Containing Products Allergy Anaphylaxis Verified 02/13/22 14:47 penicillin G Allergy Hives Verified 02/13/22 14:47 wheat Allergy Other Verified 02/13/22 14:47 potassium AdvReac Other Verified 02/13/22 14:47 Surgical History History of bariatric surgery (2000) History of cervical spinal surgery History of left heart catheterization (03/1997) Social History Smoking Status: Never smoker Electronic Cigarette Use: not used alcohol intake: former year quit: 1999 substance use type: former substance user Date of last use: 20 years, Fentynal 4 years, crack/cocaine, heroin, painkillers and other details: LSD ROS ROS ED Constitutional Constitutional ED: Denies chills, fever(s) or sweats Eyes Eyes: Denies blurry vision or change in vision ENT ENT ED: Denies ear pain or sore throat Cardiovascular Cardiovascular: Denies chest pain, palpitations or racing heartbeat Respiratory/Chest Respiratory/Chest: Denies cough, dyspnea or sputum Gastrointestinal Gastrointestinal: Denies abdominal pain, constipation, diarrhea, nausea or vomiting Genitourinary Genitourinary ED: Denies dysuria, hematuria or urinary frequency Musculoskeletal Musculoskeletal: Denies arthralgias, myalgias or neck pain Integumentary Reports other Details: Superficial laceration to right thumb ; Denies abscess or rash Neurologic Neurologic: Denies headache(s), paresthesias or weakness Psychiatric Psychiatric: Denies anxiety, depression, suicidal ideation or suicidal thoughts Endocrine Endocrinology: Denies polydipsia or polyuria EXAM Physical Exam Const Vital Signs: 02/13/22 14:45 Temperature 98.3 F Temperature Source Temporal Pulse Rate 81 Respiratory Rate 16 Blood Pressure 132/89 H Blood Pressure Mean 103 Pulse Ox 96 Oxygen Delivery Method Room Air Positive well nourished General Appearance ED: NAD HEENT normocephalic and atraumatic Eyes PERRL Resp normal respiratory effort Cardio regular rate and regular rhythm Neuro oriented x3 and CN's II-XII intact bilaterally Sensorium / Orientation: alert Psych mental status grossly normal Skin Skin Narrative: Small 0.5 cm skin flap on the medial aspect of the right thumb. No active bleeding. Wounds well approximated. No numbness or tingling. Motor strength and range of motion normal in the right thumb. Neurovascular intact brisk cap refill to all 5 fingers. MDM MDM MDM Narrative Medical decision making narrative: Patient presents with small laceration which is not currently bleeding and is well approximated. This is a small skin flap about 0.5 cm. Patient counseled that this is small and likely will heal on its own with just a dressing. I did offer him sutures, however he declines. He does state that his tetanus immunization is not up-to-date and will need a shot. Patient's wound was cleaned and dressed. Tetanus was updated. Patient discharged home in stable condition with wound care instructions and return precautions. Impression: 1. Superficial skin laceration 0.5 cm 2. Tetanus immunization Lab Data Attestation: I reviewed the patient's lab results. Discharge Plan Triage Chief Complaint: Laceration ED Provider: Ibrahima Ashton Dx/Rx/DC Orders Instructions: ED Laceration Small or ... Prescriptions: No Action nitroglycerin 0.4 mg tablet, sublingual 0.4 mg SUBLINGUAL Q5-15M PRN (Reason: Chest Pain) RF: 0 bupropion HCl [Wellbutrin SR] 150 mg tablet sustained-release 12 hr 150 mg PO BID RF: 0 Ubrelvy 50 mg tablet 50 mg PO ONCE PRN (Reason: migraine) Qty: 14 RF: 0 topiramate [Topamax] 50 mg tablet See Rx Instructions .ROUTE .COMPLEX Qty: 60 RF: 3 oxcarbazepine 150 mg tablet 150 mg PO BID Qty: 60 RF: 3 oxcarbazepine 300 mg tablet 300 mg PO BID RF: 0 salmeterol 1 PUFF inhaler 2 puff INHALATION DAILY RF: 0 budesonide 1 PUFF inhaler 2 puff INHALATION BID RF: 0 albuterol sulfate 1 PUFF inhaler 1 - 2 puff INHALATION Q4H PRN PRN (Reason: Sob &/Or Wheezing) RF: 0 escitalopram oxalate 10 MG tablet 10 mg PO DAILY RF: 0 Primary Care Provider: Eduin Watts Referrals: Eduin Watts MD [Primary Care Provider] - Disposition Disposition: Home, Self Care
[2022-02-13] MEDS: Diphth,Pertuss(Acell),Tet Vac 0.5 ML Vial IM (15:14)
== END 2022-02-13 15:20 | disposition home or self-care (01) ==
PROVIDERS: Emergency Provider Student in an Organized Health Care Education/Training Program; PCP Family Medicine; Visit Provider Student in an Organized Health Care Education/Training Program
DX: S61.011A Laceration without foreign body of right thumb without damage to nail, initial encounter (principal); Z23 Encounter for immunization; W26.0XXA Contact with knife, initial encounter
CPT/HCPCS: 90471; 90715; 99282

== ENCOUNTER → 2022-04-18 | Outpatient (CLI) | payer MEDICARE, MEDICAID, SELFPAY ==
[2022-04-18 17:48] LABS: Absolute Lymphocyte Count 0.93 X10^3/uL (0.83-4.51); Absolute Neutrophil Count 3.7 X10^3/uL (2.0-7.7); Basophil# 0.05 X10^3/uL; Basophil% 0.9 % (0-1); Eosinophil# 0.13 X10^3/uL; Eosinophils% 2.4 % (0-5); Hematocrit 43.7 % (40-54); Hemoglobin 14.2 g/dL (13.0-16.5); Lymphocyte # 0.93 X10^3/ul (0.83-4.51); Lymphocyte % 17.2 % (19-41); Mean Corp Hgb Conc 32.5 g/dL (32-36); Mean Corpuscular Hgb 31.8 pg (27.0-32.0); Mean Platelet Vol. 10.1 fl (6.2-12.0); Monocyte# 0.55 X10^3/uL; Monocyte% 10.2 % (0-10); NRBC Flagged by Analyzer 0 % (0-5); Neutrophil # 3.73 X10^3/uL (2.7-7.7); Neutrophil % 69.1 % (47-70); Platelet Count 265 K/mm3 (150-450); RBC Distribution Width CV 14.1 % (11.6-14.6); RBC Distribution Width SD 51.2 fl (35.1-43.9); Red Blood Count 4.46 M/mm3 (4.6-6.2); White Blood Count 5.4 K/mm3 (4.4-11.0)
[2022-04-18 18:17] LABS: ALB/GLOB Ratio 1.2 RATIO (0.9-2.4); AST(SGOT) 20 U/L (15-37); Alanine Aminotransfer ALT/SGPT 23 U/L (16-61); Albumin, Serum 3.9 g/dL (3.2-5.0); Alkaline Phosphatase 107 U/L (45-117); Anion Gap 5 (5-15); BUN 19 mg/dL (7-18); BUN/Creat Ratio 19.1 RATIO (10-20); Calcium,Total 9.2 mg/dL (8.5-10.1); Chloride 111 mmol/L (98-107); EST Glomerular Filtration Rate 81 mL/min (>60); Est Glom Filt Rate - Afr Amer 98 mL/min (>60); Globulin 3.3 g/dL (2.2-4.2); Glucose 84 mg/dL (74-106); Potassium 4.4 mmol/L (3.5-5.1); Protein, Total 7.2 g/dL (6.4-8.2); Sodium Level 140 mmol/L (136-145); Thyroid Stim Hormone (TSH) 2.67 uIU/mL (0.358-3.74)
== END | disposition home or self-care (01) ==
LOC: MFPLAB 16:11
PROVIDERS: PCP Family Medicine; Visit Provider Family Medicine
DX: R53.83 Other fatigue (principal)
CPT/HCPCS: 36415; 80053; 84403; 84443; 85025

== ENCOUNTER 2022-07-13 15:26 | Emergency (ER) | payer MEDICARE, MEDICAID, SELFPAY ==
[2022-07-13 15:28] VITALS: BP 124/110; PULSE 131; RESP 18; TEMP 35.8; O2SAT 98; BMI 37.8
--- NOTE | 2022-07-13 15:49 | EKG12_ITS ---
Test Reason : CP Blood Pressure : / mmHG Vent. Rate : 061 BPM Atrial Rate : 061 BPM P-R Int : 222 ms QRS Dur : 096 ms QT Int : 432 ms P-R-T Axes : 059 -57 086 degrees QTc Int : 434 ms Sinus rhythm with 1st degree A-V block Left anterior fascicular block Moderate voltage criteria for LVH, may be normal variant ( R in aVL , Rylan product ) Nonspecific ST and T wave abnormality Abnormal ECG Confirmed by ANA ROSA VILLAGRAN, ANG ([id number]), offline editor ZAHRA INGRAM ([id number]) on 07/15/2022 2:09:02 P M Referred By: BB Confirmed By:LENNY OSEGUERA MD
--- NOTE | 2022-07-13 15:58 | RAD_ITS ---
EXAM: XR CHEST, 1 VIEW CLINICAL INDICATION: chest pain TECHNIQUE: Frontal view of the chest. This report was created using [employer] report generation technology. COMPARISON: XR Chest dated 11/17/2021 FINDINGS: LUNGS AND PLEURAL SPACES: Linear scarring within the lingula again noted. Lungs otherwise clear. No pneumothorax. No effusion. HEART: Normal heart size. MEDIASTINUM: No mediastinal or hilar mass. BONES/JOINTS: No acute abnormality. SOFT TISSUES: Normal. UPPER ABDOMEN: Linear calcification projecting within the left upper quadrant of the abdomen unchanged from prior exam. RAD/Chest 1 View (Portable) IMPRESSION: No acute cardiopulmonary abnormality. No interval change. Electronically Signed: Brown Millan MD at 16:28 EDT ,
[2022-07-13 16:20] LABS: Anion Gap 5 (5-15); BUN 19 mg/dL (7-18); BUN/Creat Ratio 16.4 RATIO (10-20); Calcium,Total 9.6 mg/dL (8.5-10.1); Chloride 107 mmol/L (98-107); Creatinine, Serum 1.16 mg/dL (0.70-1.30); EST Glomerular Filtration Rate 68 mL/min (>60); Est Glom Filt Rate - Afr Amer 82 mL/min (>60); Estimated Creatinine Clearance 65.18 ml/min; Glucose 93 mg/dL (74-106); Potassium 4.2 mmol/L (3.5-5.1); Sodium Level 137 mmol/L (136-145); Troponin-I HS (w/2H Reflex) 8 pg/mL (3.0-78.0)
[2022-07-13 16:22] LABS: Absolute Lymphocyte Count 0.94 X10^3/uL (0.83-4.51); Absolute Neutrophil Count 3.4 X10^3/uL (2.0-7.7); Basophil# 0.04 X10^3/uL; Basophil% 0.8 % (0-1); Eosinophil# 0.11 X10^3/uL; Eosinophils% 2.2 % (0-5); Hematocrit 45.8 % (40-54); Hemoglobin 15.3 g/dL (13.0-16.5); Lymphocyte # 0.94 X10^3/ul (0.83-4.51); Lymphocyte % 18.9 % (19-41); Mean Corp Hgb Conc 33.4 g/dL (32-36); Mean Corpuscular Hgb 31.2 pg (27.0-32.0); Mean Corpuscular Volume 93.3 fL (80-94); Mean Platelet Vol. 10.3 fl (6.2-12.0); Monocyte# 0.51 X10^3/uL; Monocyte% 10.3 % (0-10); NRBC Flagged by Analyzer 0 % (0-5); Neutrophil # 3.36 X10^3/uL (2.7-7.7); Neutrophil % 67.6 % (47-70); Platelet Count 268 K/mm3 (150-450); RBC Distribution Width CV 12.9 % (11.6-14.6); RBC Distribution Width SD 44.1 fl (35.1-43.9); Red Blood Count 4.91 M/mm3 (4.6-6.2)
[2022-07-13 17:09] VITALS: BP 147/99; PULSE 64; RESP 12; O2SAT 98
--- NOTE | 2022-07-13 18:00 | EDS_ITS ---
HPI History of Present Illness Chief Complaint: Chest Pain Informant: patient and PCP Onset/Context/Timing Onset: Yesterday Narrative Narrative: Patient was getting a snowblower out of his garage to work on yesterday when he started having severe chest heaviness, diaphoresis, some shortness of breath. He went back into the house took a nitroglycerin and laid down, it improved he took a second one 5 minutes later and he fell asleep and woke up hours later feeling better except for a headache that gradually went away. Today, he took a nap because he was up all night unable to sleep but no chest discomfort, and upon waking up around 1300, he was having some intermittent discomfort in his left chest that was different than what he had yesterday, feeling like a hot poker going in 1 part and coming out another, occasionally pleuritic but not all the time, no dyspnea or other symptoms. No recent cough. He states he feels tired and malaised today and weak all over but he has no other new symptoms. He has had pain in one of his heels just when he walks for the past month or 2 so he went to his PCP for that today and when he told about the chest discomfort he did an EKG in the office, he said it showed some nonspecific T wave abnormalities but no inverted T waves or ST elevations or depressions, and sent him to the emergency department. The patient claims to have been diagnosed with heart attacks before, he has never had PCI, the last time he had a heart cath was years ago and he does not remember if it was normal or abnormal. He has followed with Dr. Valles, however he canceled his last appointment because the year prior to that he was told that the office was going to contact him about some type of test, possibly an echocardiogram, and no one ever contacted him, so for that reason he decided to cancel this year's appointment. He states he had a negative chemical stress test last year. Was given aspirin 324 mg in the office prior to being sent here today. Has a history of paroxysmal atrial fibrillation, not anticoagulated, he does have a history of DVTs but they were remote, never had a history of a PE. No recent travel out of the area or long immobilization/hospitalization recently. [facility] Medical History AA (alcohol abuse) Abscess of right leg Arthritis Bronchial asthma Chronic pain syndrome COPD (chronic obstructive pulmonary disease) DM type 2 (diabetes mellitus, type 2) Dog bite of right calf Epilepsy undetermined as to focal or generalized, intractable Esophageal reflux Essential (primary) hypertension H/O: substance abuse History of colon cancer History of DVT (deep vein thrombosis) History of ETOH abuse History of suicide attempt Hyperlipidemia Migraine headache Morbid obesity Necrotizing soft tissue infection Neuropathy Personal hx-rectal/anal malignancy Post traumatic stress disorder (PTSD) Seizure disorder Home Medications budesonide 180 mcg/actuation breath activated powder inhaler 2 puff inhalation BID 02/14/15 [History Last Taken 04/01/19] salmeterol 50 mcg/dose blister powder for inhalation 2 puff inhalation DAILY 02/14/15 [History Last Taken 04/01/19] albuterol sulfate 90 mcg/actuation aerosol inhaler 1 - 2 puff inhalation Q4H PRN PRN Sob &/Or Wheezing 04/02/19 [History Last Taken 04/02/19] escitalopram oxalate 10 mg tablet 10 mg PO DAILY 07/31/20 [History Last Taken Unknown] nitroglycerin 0.4 mg sublingual tablet 0.4 mg sublingual Q5-15M PRN Chest Pain 09/28/20 [History Last Taken Unknown] bupropion HCl 150 mg tablet,12 hr sustained-release (Wellbutrin SR) 150 mg PO BID 09/29/20 [History Last Taken Unknown] oxcarbazepine 150 mg tablet 150 mg PO BID #60 tabs 09/29/20 [Rx Last Taken Unknown] topiramate 50 mg tablet (Topamax) See Rx Instructions .Route .COMPLEX #60 tabs 09/29/20 [Rx Last Taken Unknown] ubrogepant 50 mg tablet (Ubrelvy) 50 mg PO ONCE PRN migraine #14 tabs 09/29/20 [Rx Last Taken Unknown] oxcarbazepine 300 mg tablet 300 mg PO BID 05/05/21 [History Last Taken Unknown] apixaban 5 mg (74 tabs) tablets in a dose pack (Eliquis DVT-PE Treat 30D Start) 5 mg PO BID #74 tabs 07/13/22 [Rx Last Taken Unknown] Allergy/AdvReac Type Severity Reaction Status Date / Time meperidine HCl [From Demerol] Allergy Unknown Verified 07/13/22 15:27 Milk Containing Products Allergy Anaphylaxis Verified 07/13/22 15:27 penicillin G Allergy Hives Verified 07/13/22 15:27 wheat Allergy Other Verified 07/13/22 15:27 potassium AdvReac Other Verified 07/13/22 15:27 Surgical History History of bariatric surgery (2000) History of cervical spinal surgery History of left heart catheterization (03/1997) Social History Smoking Status: Never smoker Electronic Cigarette Use: not used alcohol intake: former year quit: 1999 substance use type: former substance user Date of last use: 20 years, Fentynal 4 years, crack/cocaine, heroin, painkillers and other details: LSD ROS ROS ED Constitutional Constitutional ED: Reports malaise and weakness; Denies body ache(s), chills or fever(s) Eyes Eyes: Denies change in vision or diplopia ENT ENT ED: Denies rhinorrhea or sore throat Cardiovascular Cardiovascular: Reports chest pain; Denies palpitations Respiratory/Chest Respiratory/Chest: Denies cough or dyspnea Gastrointestinal Gastrointestinal: Denies abdominal pain, diarrhea, nausea or vomiting Genitourinary Genitourinary ED: Reports urinary frequency; Denies dysuria or hematuria Musculoskeletal Musculoskeletal: Reports as per HPI and extremity pain; Denies back pain or neck pain Integumentary Denies abscess or rash Neurologic Neurologic: Denies headache(s), paresthesias or weakness Psychiatric Psychiatric: Denies anxiety or suicidal thoughts EXAM Physical Exam Const Vital Signs: 07/13/22 15:28 07/13/22 17:09 07/13/22 17:09 Temperature 96.5 F L Temperature Source Temporal Pulse Rate 131 H 64 Respiratory Rate 18 12 Blood Pressure 124/110 H 147/99 H Blood Pressure Mean 114 115 Pulse Ox 98 98 Oxygen Delivery Method Room Air Room Air Room Air 07/13/22 19:00 Temperature Temperature Source Pulse Rate 76 Respiratory Rate 18 Blood Pressure 134/78 H Blood Pressure Mean 96 Pulse Ox 98 Oxygen Delivery Method Room Air Positive well nourished, well developed and obese General Appearance ED: well developed and NAD Nutritional Appearance: obese HEENT Reports moist mucous membranes normocephalic and atraumatic Eyes PERRL and EOMs intact bilaterally Neck full ROM and supple Chest Wall inspection of chest normal and palpation of chest normal Resp normal respiratory effort and clear to auscultation bilaterally Cardio regular rate, regular rhythm and no murmurs Rate: Negative for tachycardic GI non-tender and non-distended Auscultation: normoactive bowel sounds Palpation: soft Back/Spine no CVA tenderness General Back: other FROM Extremity normal to inspection and no calf tenderness General Extremety ED: Negative for edema, pulses abnormal or tenderness General Extremity: Negative for edema or pulses abnormal Neuro oriented x3, CN's II-XII intact bilaterally and no sensory deficits noted Sensorium / Orientation: awake and alert Motor Exam: strength 5/5 throughout Skin no rashes or lesions noted and no wounds Heart Score History: Slightly/Non-Suspicious (today's pain) ECG: Nonspecific Repolarization (lateral limb leads) Age: >45 - <65 years Risk Factors: 1 or 2 Risk Factors Troponin: </= Normal Limit Score: 3 MDM MDM MDM Narrative Medical decision making narrative: Due to the pain that the patient had yesterday that was concerning for possible cardiac in etiology, I obtained an EKG, troponin, and later a 2-hour second troponin, the initial 1 was 8 and the second 1 was 7. Patient does not want to stay in the hospital for this which I offered, he will follow-up as an outpat ient. Because the patient is feeling very weak also did a COVID swab and urinalysis, given that he had urinary frequency. Due to the pain that the patient is having today, I obtained a chest x-ray, 1 view on my interpretation is negative/normal, and a D-dimer which was significantly elevated. Therefore the patient was sent for CT angiography to evaluate further for pulmonary embolus. It does show a third-order vessel pulmonary embolus on the left side which may be causing the pain he has been experiencing today. His vital signs are normal and he is at 98% on room air and appears well. He is stable to be treated as an outpatient for the pulmonary embolus, and advised to follow-up regarding the other chest discomfort he was having as well. Lab Data Attestation: I reviewed the patient's lab results. Labs: Laboratory Results - last 24 hr 07/13/22 07/13/22 07/13/22 15:40 15:46 16:46 WBC 5.0 RBC 4.91 Hgb 15.3 Hct 45.8 MCV 93.3 MCH 31.2 MCHC 33.4 RDW Std Deviation 44.1 H RDW Coeff of [place] 12.9 Plt Count 268 MPV 10.3 Immature Gran % (Auto) 0.200 Neut % (Auto) 67.6 Lymph % (Auto) 18.9 L [place] % (Auto) 10.3 H Eos % (Auto) 2.2 Baso % (Auto) 0.8 Absolute Neuts (auto) 3.4 Absolute Lymphs (auto) 0.94 Nucleated RBC % 0 D-Dimer Quant (PE/DVT) 2.42 H* Sodium 137 Potassium 4.2 Chloride 107 Carbon Dioxide 25.0 Anion Gap 5 BUN 19 H Creatinine 1.16 Estim Creat Clear Calc 65.18 Est GFR (MDRD) Af Amer 82 Est GFR (MDRD) Non-Af 68 BUN/Creatinine Ratio 16.4 Glucose 93 Calcium 9.6 Troponin I High Sens 8 Urine Color Urine Clarity Urine pH Ur Specific [place] Urine Protein Urine Glucose (UA) Urine Ketones Urine Occult Blood Urine Nitrite Urine Bilirubin Urine Urobilinogen Ur Leukocyte Esterase Urine RBC Urine WBC Ur Squamous Epith Cells Urine Bacteria Urine Mucus 07/13/22 07/13/22 18:07 18:40 WBC RBC Hgb Hct MCV MCH MCHC RDW Std Deviation RDW Coeff of [place] Plt Count MPV Immature Gran % (Auto) Neut % (Auto) Lymph % (Auto) [place] % (Auto) Eos % (Auto) Baso % (Auto) Absolute Neuts (auto) Absolute Lymphs (auto) Nucleated RBC % D-Dimer Quant (PE/DVT) Sodium Potassium Chloride Carbon Dioxide Anion Gap BUN Creatinine Estim Creat Clear Calc Est GFR (MDRD) Af Amer Est GFR (MDRD) Non-Af BUN/Creatinine Ratio Glucose Calcium Troponin I High Sens 7 Urine Color Yellow Urine Clarity Clear Urine pH 7.0 Ur Specific [place] 1.010 Urine Protein 15 H Urine Glucose (UA) Normal Urine Ketones Negative Urine Occult Blood 10 H Urine Nitrite Positive H Urine Bilirubin Negative Urine Urobilinogen Normal Ur Leukocyte Esterase 100 H Urine RBC 0 SEEN Urine WBC 5-10 SEEN Ur Squamous Epith Cells 0 SEEN Urine Bacteria 0 SEEN Urine Mucus 0 SEEN Radiography Chest X-Ray - ED: 1 View, Read by ED Physician, No Acute Disease and No Infiltrates Diagnostic Testing: Clinical Impression(s) from Imaging Studies Chest X-Ray 07/13/22 15:58 IMPRESSION: No acute cardiopulmonary abnormality. No interval change. Electronically Signed: Brown Millan MD at 16:28 EDT , Chest CTA 07/13/22 18:59 IMPRESSION: Right lower lobe pulmonary artery embolus. This extends to the third order branches. Electronically Signed: Kirk Barnett MD at 19:42 EDT , ADDENDUM: 07/13/222003 IMPRESSION: Right lower lobe pulmonary artery embolus. This extends to the third order branches. N.B. : The above Results were Read Back by Kirk Barnett MD to Vic Marcus MD, and understanding confirmed on 07/13/2022 19:57:14 (ET). Electronically Signed: Kirk Barnett MD at 19:42 EDT , Rhythm Strip Rhythm Strip: Sinus Rhythm Rate: 60 Ectopy: None EKG Initial EKG: Interpretation: LAFB and Inverted T-Waves (aVL) Prior EKG tracings: available for review Prior: Unchanged (except T wave inversions aVL only new) Discharge Plan Triage Chief Complaint: Chest Pain ED Provider: Vic Marcus Dx/Rx/DC Orders Clinical Impression: Pulmonary embolus, left, Chest pain, unspecified Instructions: Pulmonary Embolism, ED Chest Pain, Uncertain Cause Prescriptions: New Eliquis DVT-PE Treat 30D Start 5 mg (74 tabs) tablets,dose pack 5 mg PO BID Qty: 74 0RF No Action nitroglycerin 0.4 mg tablet, sublingual 0.4 mg SUBLINGUAL Q5-15M PRN (Reason: Chest Pain) Rx Instructions: do not exceed 3 doses per episode bupropion HCl [Wellbutrin SR] 150 mg tablet sustained-release 12 hr 150 mg PO BID Ubrelvy 50 mg tablet 50 mg PO ONCE PRN (Reason: migraine) Qty: 14 0RF Rx Instructions: do not exceed 1 tab per day topiramate [Topamax] 50 mg tablet See Rx Instructions .ROUTE .COMPLEX Qty: 60 3RF Rx Instructions: Take 1 tablet once daily x 1 week, then 1 tablet BID thereafter oxcarbazepine 150 mg tablet 150 mg PO BID Qty: 60 3RF oxcarbazepine 300 mg tablet 300 mg PO BID salmeterol 1 PUFF inhaler 2 puff INHALATION DAILY Label Comments: breathing budesonide 1 PUFF inhaler 2 puff INHALATION BID Label Comments: breathing albuterol sulfate 1 PUFF inhaler 1 - 2 puff INHALATION Q4H PRN PRN (Reason: Sob &/Or Wheezing) escitalopram oxalate 10 MG tablet 10 mg PO DAILY Primary Care Provider: Eduin Watts Referrals: Alexandre Valles MD [Med Staff - Active Staff] - As soon as possible (call for appt) Eduin Watts MD [Primary Care Provider] - Disposition Disposition: Home, Self Care
[2022-07-13 18:01] LABS: Reflex Troponin-HS? (from REC) Y
[2022-07-13 18:43] LABS: Troponin-I HS 7 pg/mL (3.0-78.0)
[2022-07-13 18:44] LABS: Bacteria 0 SEEN /hpf (None Seen); Color, Urine Yellow (Yellow); Glucose, Dipstick Normal (Normal); Ketone-Dipstick Negative (Negative); Leukocyte Esterase-Dipstick 100 /ul (Negative); Mucous, Urine 0 SEEN /hpf (<or=2+); Nitrite-Dipstick Positive (Negative); Occult Blood-Urine 10 /ul (Negative); Protein-Dipstick 15 mg/dl (Negative); Red Blood Cells-Urine 0 SEEN /hpf (0-5); Squamous Epithelial Cells - UA 0 SEEN /hpf (0-5); Urine Bilirubin Dipstick Negative (Negative); Urine Clarity Clear (Clear); Urine Urobilinogen Normal (Normal)
[2022-07-13 18:59] LABS: D-Dimer Quantitative (DVT/PE) 2.42 FEU/ug/m (0.27-0.49)
--- NOTE | 2022-07-13 18:59 | CT_ITS ---
We are attempting to reach an attending provider to discuss findings. An addendum with communication details will be sent when the communication is complete. EXAM: CT ANGIOGRAPHY CHEST WITHOUT AND WITH INTRAVENOUS CONTRAST CLINICAL INDICATION: chest pain left, elevated d-dimer TECHNIQUE: Helically acquired angiography images were obtained of the chest without and with intravenous contrast. This CT exam was performed using one or more of the following dose reduction techniques: automated exposure control, adjustment of the mA and/or kV according to patient size, and/or use of iterative reconstruction technique. This report was created using [employer] report [employer] technology. MIP reconstructed images were created and reviewed. CONTRAST: IV 100mL Isovue-370 RADIATION DOSE: CTDIvol = 12.52 mGy, DLP = 488.24 mGy-cm COMPARISON: None. FINDINGS: PULMONARY ARTERIES: See below. AORTA: Unremarkable. Normal in caliber. No evidence of dissection. GREAT VESSELS OF AORTIC ARCH: Unremarkable. Normal in caliber. No evidence of dissection. LUNGS AND PLEURAL SPACES: Right lower lobe pulmonary artery embolus. This extends to the third order branches. No mass. No pleural effusion or thickening. No pneumothorax. HEART: There are calcifications of the coronary arteries. No pericardial effusion. No signs of right heart strain, ratio of right ventricle to left ventricle measures less than 1. MEDIASTINUM: Unremarkable. No mediastinal or hilar adenopathy. Esophagus is unremarkable. No hiatal hernia. THYROID: Unremarkable. No thyroid lesions. BONES/JOINTS: There are degenerative changes of the shoulders. There are multi-level degenerative changes of the thoracic spine. No suspicious lytic or blastic abnormality. STOMACH AND BOWEL: There are multiple surgical clips around the stomach. There are also anastomotic sutures around the stomach and altered gastrointestinal anatomy. This is consistent for prior gastric surgery (this may include sleeve, Abdias, or gastric bypass and other types of gastric surgery). OTHER FINDINGS: Critical finding called and case discussed. CT/CTA Chest W/WO Contrast IMPRESSION: Right lower lobe pulmonary artery embolus. This extends to the third order branches. Electronically Signed: Kirk Barnett MD at 19:42 EDT ,
[2022-07-13 19:00] VITALS: BP 134/78; PULSE 76; RESP 18; O2SAT 98
[2022-07-13 19:02] LABS: White Blood Cells 5-10 SEEN /hpf (0-5)
[2022-07-13] MEDS: 0.9% Normal Saline 1,000 ML 999 ML IV (19:37)
[2022-07-13] MEDS: APIXABAN 5 MG TABLET 10 MG PO (21:16)
[2022-07-13 21:17] VITALS: BP 152/100; PULSE 59; RESP 18; O2SAT 94
== END 2022-07-13 21:24 | disposition home or self-care (01) ==
PROVIDERS: Emergency Provider Emergency Medicine; PCP Family Medicine; Visit Provider Emergency Medicine
DX: I26.99 Other pulmonary embolism without acute cor pulmonale (principal); R07.9 Chest pain, unspecified; E66.9 Obesity, unspecified; Z86.718 Personal history of other venous thrombosis and embolism
CPT/HCPCS: 71045; 71275; 80048; 81001; 84484; 85025; 85379; 87811; 93005; 99285; J7030; Q9967; A4216

== ENCOUNTER → 2022-08-09 | Outpatient (CLI) | payer MEDICARE, MEDICAID, SELFPAY ==
--- NOTE | 2022-08-09 11:02 | ECHOD_ITS ---
Reason For Study: Paroxsymal AFIB Procedure This was a 2D Doppler, Color Flow transthoracic echocardiogram. The study was technically difficult. Exam performed in department. Left Ventricle Normal LV size. Mild global left ventricular systolic dysfunction. The estimated ejection fraction is 45 %. No regional wall motion abnormalities noted. Right Ventricle Normal RV size. Normal systolic function. Atria Normal left atrium. Normal right atrium. Mitral Valve Normal mitral valve. Mild (1+) eccentric mitral valve insufficiency. Tricuspid Valve Normal tricuspid valve. Mild tricuspid valve insufficiency. Aortic Valve Trisinus/trileaflet aortic valve. Mild (1+) aortic valve insufficiency. Pulmonic Valve The pulmonic valve is not well visualized. Great Vessels Mild to moderately dilated aortic root. The pulmonary artery is normal size. Normal inferior vena cava. Pericardium/Pleural No pericardial effusion. MMode/2D Measurements & Calculations LVIDd: 5.1 cm IVSd: 1.1 cm LVOT diam: 2.5 cm LVIDs: 3.7 cm LVPWd: 1.2 cm LVOT area: 5.0 cm2 RVDd: 3.3 cm FS: 28.4 % Ao root diam: 4.1 cm LAV(MOD-bp): 79.8 ml LA A4 area: 22.1 cm2 LAV(MOD-bp) Indexed: 34.6 ml/m2 LAV(MOD-sp2): 75.4 ml LAV(MOD-sp4): 78.0 ml LA dimension(2D): 5.0 cm RA A4 area: 17.5 cm2 Doppler Measurements & Calculations MV E max zenon: 32.8 cm/sec Lat Peak E' Zenon: 5.7 cm/sec Med Peak E' Zenon: 4.7 cm/sec MV A max zenon: 62.7 cm/sec E/E' lat: 5.7 E/E' med: 6.9 MV E/A: 0.52 Ao V2 max: 112.0 cm/sec AI max zenon: 349.4 cm/sec LV V1 max: 90.9 cm/sec Ao max P.0 mmHg AI max P.9 mmHg LV V1 max P.3 mmHg Ao V2 mean: 84.3 cm/sec AI dec slope: 151.3 cm/sec2 LV V1 mean P.8 mmHg Ao mean P.2 mmHg AI P1/2t: 676.6 msec LV V1 mean: 62.4 cm/sec Ao V2 VTI: 27.8 cm LV V1 VTI: 19.6 cm ACOSTA(I,D): 3.5 cm2 ACOSTA(V,D): 4.0 cm2 SV(LVOT): 97.4 ml PA V2 max: 81.9 cm/sec TR max zenon: 230.6 cm/sec TR max P.3 mmHg ECHO/Echo Complete Interpretation Summary Normal LV size. Mild global left ventricular systolic dysfunction. The estimated ejection fraction is 45 %. Mild to moderately dilated aortic root. Mild (1+) aortic valve insufficiency. Ordering Physician: Chela Falk Referring Physician: Eduin Watts Performed By: Mariaelena Brito, LORI, RVT
== END | disposition home or self-care (01) ==
LOC: CVS 11:01
PROVIDERS: PCP Family Medicine; Referring Provider Nurse Practitioner Gerontology; Visit Provider Nurse Practitioner Gerontology
DX: I48.0 Paroxysmal atrial fibrillation (principal); I10 Essential (primary) hypertension; R94.39 Abnormal result of other cardiovascular function study
CPT/HCPCS: 93306

== ENCOUNTER → 2022-09-22 | Outpatient (CLI) | payer MEDICARE, MEDICAID, SELFPAY ==
--- NOTE | 2022-09-22 11:09 | RAD_ITS ---
EXAM: XR CHEST, 2 VIEWS CLINICAL INDICATION: SOB ON EXERTION TECHNIQUE: Frontal and lateral views of the chest. This report was created using [employer] report generation technology. COMPARISON: 07/13/2022 FINDINGS: LUNGS AND PLEURAL SPACES: Unremarkable. No consolidation or edema. No pneumothorax. No effusion. HEART: Unremarkable. Cardiac silhouette not enlarged. MEDIASTINUM: Central airways and mediastinal contour are unremarkable. BONES/JOINTS: Unremarkable. SOFT TISSUES: Unremarkable. RAD/Chest PA and Lateral IMPRESSION: No radiographic evidence of acute cardiopulmonary disease. Electronically Signed: Cyrus Vazquez MD at 17:10 EST ,
[2022-09-22 12:21] LABS: Absolute Lymphocyte Count 0.86 X10^3/uL (0.83-4.51); Absolute Neutrophil Count 4.1 X10^3/uL (2.0-7.7); Basophil# 0.07 X10^3/uL; Basophil% 1.2 % (0-1); Eosinophils% 1.8 % (0-5); Hematocrit 47.3 % (40-54); Hemoglobin 15.5 g/dL (13.0-16.5); Lymphocyte # 0.86 X10^3/ul (0.83-4.51); Lymphocyte % 15.1 % (19-41); Mean Corp Hgb Conc 32.8 g/dL (32-36); Mean Corpuscular Hgb 31.4 pg (27.0-32.0); Mean Corpuscular Volume 95.7 fL (80-94); Mean Platelet Vol. 10.1 fl (6.2-12.0); Monocyte% 10.5 % (0-10); NRBC Flagged by Analyzer 0 % (0-5); Neutrophil # 4.06 X10^3/uL (2.7-7.7); Platelet Count 284 K/mm3 (150-450); RBC Distribution Width CV 13.5 % (11.6-14.6); RBC Distribution Width SD 47.5 fl (35.1-43.9); Red Blood Count 4.94 M/mm3 (4.6-6.2); White Blood Count 5.7 K/mm3 (4.4-11.0)
[2022-09-22 12:41] LABS: Anion Gap 4 (5-15); BUN 20 mg/dL (7-18); BUN/Creat Ratio 16.3 RATIO (10-20); Calcium,Total 9.3 mg/dL (8.5-10.1); Chloride 105 mmol/L (98-107); Creatinine, Serum 1.23 mg/dL (0.70-1.30); EST Glomerular Filtration Rate 63 mL/min (>60); Est Glom Filt Rate - Afr Amer 76 mL/min (>60); Glucose 100 mg/dL (74-106); Potassium 4.4 mmol/L (3.5-5.1); Sodium Level 139 mmol/L (136-145); Troponin-I HS 7 pg/mL (3.0-78.0)
[2022-09-22 14:24] LABS: BNP,B-Type NATRIURETIC PEPTIDE 18.2 pg/mL (0-100)
== END | disposition home or self-care (01) ==
LOC: MTLAB 11:07
PROVIDERS: PCP Family Medicine; Referring Provider Family Medicine; Visit Provider Family Medicine
DX: R06.02 Shortness of breath (principal)
CPT/HCPCS: 36415; 71046; 80048; 83880; 84484; 85025

== ENCOUNTER → 2022-11-14 | Outpatient (CLI) | payer MEDICARE, MEDICAID, SELFPAY ==
--- NOTE | 2022-11-14 16:52 | STRESSREP ---
Stress Test Report Pharmacologic myocardial perfusion stress test. 62-year-old man with a history of chest pain Resting EKG demonstrates sinus bradycardia with a rate of 57 bpm. Resting blood pressure is 124/78 mmHg. 0.4 mg of regadenoson was infused per usual protocol followed by rapid intravenous saline flush injection. Continuous EKG monitoring was performed. The maximum heart rate was 93 bpm which was 59% of max impacted heart rate the maximum workload was 1 metabolic equivalent. At rest there were no ST or T wave changes noted to suggest ischemia and at peak infusion nonspecific ST changes were noted which did not meet the criteria for ischemia. No clinical angina is noted. The final blood pressure was 114/60 mmHg. Myocardial perfusion protocol. 15 mCi of technetium 99m sestamibi was injected at rest. 0.4 mg of regadenoson was infused per usual protocol. At peak infusion 45 mCi of technetium 99m sestamibi was injected stress images were obtained stress and rest images were reconstructed and compared in the short axis vertical long and horizontal long axis. Gated images were also obtained. Perfusion SPECT analysis: Review of the stress images demonstrate normal uptake of tracer noted in all areas of the myocardium. The resting images similar demonstrated normal uptake of tracer noted in all areas of the myocardium. No areas of reversibility are noted to suggest ischemia and no previous infarct is noted. Gated SPECT analysis: The gated ejection fraction is 49%. Conclusion: Normal pharmacologic myocardial perfusion stress test. Mildly reduced ejection fraction.
== END | disposition home or self-care (01) ==
LOC: CVS 06:16
PROVIDERS: PCP Family Medicine; Referring Provider Nurse Practitioner Gerontology; Visit Provider Nurse Practitioner Gerontology
DX: R07.9 Chest pain, unspecified (principal); R06.00 Dyspnea, unspecified; R53.83 Other fatigue; R06.09 Other forms of dyspnea
CPT/HCPCS: 78452; 93017; A9500; A4216; J2785

== ENCOUNTER → 2023-02-02 | Outpatient (CLI) | payer MEDICARE, MEDICAID, SELFPAY ==
[2023-02-02 16:10] LABS: Anion Gap 8 (5-15); BUN 21 mg/dL (7-18); BUN/Creat Ratio 21.6 RATIO (10-20); Calcium,Total 8.7 mg/dL (8.5-10.1); Chloride 108 mmol/L (98-107); Cholesterol 155 mg/dL (200); Creatinine, Serum 0.97 mg/dL (0.70-1.30); EST Glomerular Filtration Rate 83 mL/min (>60); Est Glom Filt Rate - Afr Amer 100 mL/min (>60); Glucose 89 mg/dL (74-106); High Density Lipoprotein 56 mg/dL; Potassium 4.4 mmol/L (3.5-5.1); Sodium Level 138 mmol/L (136-145); Triglycerides 47 mg/dL; Very Low Density Lipoprotein 9 mg/dL (5-40)
== END | disposition home or self-care (01) ==
LOC: MFPLAB 12:02
PROVIDERS: PCP Family Medicine; Visit Provider Family Medicine
DX: I10 Essential (primary) hypertension (principal)
CPT/HCPCS: 36415; 80048; 80061

== ENCOUNTER 2023-05-04 16:01 | Observation (INO) | payer MEDICARE, MEDICAID, SELFPAY ==
[2023-05-04 16:03] VITALS: BP 95/64; PULSE 71; RESP 18; TEMP 36.3; O2SAT 100; BMI 38.4
--- NOTE | 2023-05-04 16:39 | EKG12_ITS ---
Test Reason : SOB Blood Pressure : / mmHG Vent. Rate : 077 BPM Atrial Rate : 077 BPM P-R Int : 198 ms QRS Dur : 090 ms QT Int : 400 ms P-R-T Axes : 043 -55 057 degrees QTc Int : 452 ms Sinus rhythm with occasional Premature ventricular complexes Left anterior fascicular block Abnormal ECG Confirmed by RENETTA GALLAGHER ([id number]), assistant production editor DARION FLORES ([id number]) on 05/09/2023 9:03:24 AM Referred By: Confirmed By:RENETTA GALLAGHER
--- NOTE | 2023-05-04 16:40 | EX.ED.DYSGE1 ---
HPI History of Present Illness Chief Complaint: Shortness of Breath Informant: patient Onset/Context/Timing Onset: Days (5 days) Narrative Narrative: Patient presents with 5-day history of shortness of breath, diaphoresis, and chest pain. He states with any exertion he gets extremely short of breath and he feels like there is a constriction around his neck. He will also get pain under the left breast area and will break out in a sweat. When he sits to rest symptoms will slightly improve. He does have a history of COPD and CHF. He was seen by his PCP on Monday who started him on an antibiotic. He was instructed if he does not improve he should come to the emergency room. Today he was helping to move some light objects from a garage to a home when he became very short of breath with chest pain and diaphoresis. He states his vision went black but he did not pass out. He does report history of heart disease with a bad heart valve. 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 [facility] Medical History AA (alcohol abuse) Abscess of right leg Arthritis Bronchial asthma Chronic pain syndrome COPD (chronic obstructive pulmonary disease) DM type 2 (diabetes mellitus, type 2) JOVEL (dyspnea on exertion) Dog bite of right calf Epilepsy undetermined as to focal or generalized, intractable Esophageal reflux Essential (primary) hypertension H/O: substance abuse History of colon cancer History of DVT (deep vein thrombosis) History of ETOH abuse History of suicide attempt Hyperlipidemia Migraine headache Morbid obesity Necrotizing soft tissue infection Neuropathy Personal hx-rectal/anal malignancy Post traumatic stress disorder (PTSD) Seizure disorder Home Medications budesonide 180 mcg/actuation breath activated powder inhaler 2 puff inhalation BID 02/14/15 [History Last Taken 04/01/19] salmeterol 50 mcg/dose blister powder for inhalation 2 puff inhalation DAILY 02/14/15 [History Last Taken 04/01/19] albuterol sulfate 90 mcg/actuation aerosol inhaler 1 - 2 puff inhalation Q4H PRN PRN Sob &/Or Wheezing 04/02/19 [History Last Taken 04/02/19] escitalopram oxalate 10 mg tablet 10 mg PO DAILY 07/31/20 [History Last Taken Unknown] nitroglycerin 0.4 mg sublingual tablet 0.4 mg sublingual Q5-15M PRN Chest Pain 09/28/20 [History Last Taken Unknown] bupropion HCl 150 mg tablet,12 hr sustained-release (Wellbutrin SR) 150 mg PO BID 09/29/20 [History Last Taken Unknown] oxcarbazepine 150 mg tablet 150 mg PO BID #60 tabs 09/29/20 [Rx Last Taken Unknown] oxcarbazepine 300 mg tablet 300 mg PO BID 05/05/21 [History Last Taken Unknown] apixaban 5 mg (74 tabs) tablets in a dose pack (Medical Envelope DVT-PE Treat 30D Start) 5 mg PO BID 11/07/22 [History Last Taken Unknown] lisinopril 10 mg tablet 10 mg PO DAILY #30 tabs 03/30/23 [Rx Last Taken Unknown] carvedilol 3.125 mg tablet 3.125 mg PO BID #60 tabs 05/04/23 [Rx Last Taken Unknown] Allergy/AdvReac Type Severity Reaction Status Date / Time meperidine HCl [From Demerol] Allergy Unknown Verified 05/04/23 16:03 Milk Containing Products Allergy Anaphylaxis Verified 05/04/23 16:03 (Dairy) [Milk Containing Products] penicillin G Allergy Hives Verified 05/04/23 16:03 wheat Allergy Other Verified 05/04/23 16:03 potassium AdvReac Other Verified 05/04/23 16:03 Surgical History History of bariatric surgery (2000) History of cervical spinal surgery History of left heart catheterization (03/1997) Social History Smoking Status: Never smoker Electronic Cigarette Use: not used alcohol intake: former year quit: 1999 substance use type: former substance user Date of last use: 20 years, Fentynal 4 years, crack/cocaine, heroin, painkillers and other details: LSD ROS ROS ED Constitutional Constitutional ED: Denies chills or fever(s) Eyes Eyes: Denies change in vision or discharge from eye(s) ENT ENT ED: Reports other Details: Tightness around throat with exertion ; Denies discharge from eye(s), rhinorrhea or sore throat Cardiovascular Cardiovascular: Reports chest pain; Denies palpitations Respiratory/Chest Respiratory/Chest: Reports dyspnea; Denies cough Gastrointestinal Gastrointestinal: Reports diarrhea; Denies abdominal pain, nausea or vomiting Genitourinary Genitourinary ED: Denies dysuria Musculoskeletal Musculoskeletal: Denies back pain or extremity pain Integumentary Denies Abrasions or rash Neurologic Neurologic: Denies headache(s) or weakness Psychiatric Psychiatric: Denies anxiety or depression Allergic/Immunologic Allergic/Immunologic ED: Denies lip swelling or urticaria EXAM Physical Exam Const Vital Signs: 05/04/23 16:03 05/04/23 16:39 05/04/23 17:13 Temperature 97.3 F L Temperature Source Temporal Pulse Rate 71 Respiratory Rate 18 Respiratory Effort Short of Breath Blood Pressure 95/64 Blood Pressure Mean 74 Pulse Ox 100 Oxygen Delivery Method Room Air Room Air Room Air Positive well nourished and well developed General Appearance ED: well developed HEENT Reports moist mucous membranes Eyes EOMs intact bilaterally Chest Wall inspection of chest normal and palpation of chest normal Resp normal respiratory effort and clear to auscultation bilaterally Cardio regular rate and regular rhythm GI non-tender Extremity normal to inspection Extremity Narrative: No significant lower extremity edema. Neuro oriented x3 and no sensory deficits noted Motor Exam: strength 5/5 throughout Psych mental status grossly normal Skin no rashes or lesions noted MDM MDM MDM Narrative Medical decision making narrative: Patient placed on director of cardiac rehabilitation. He is given aspirin. EKG obtained to evaluate for cardiac arrhythmia/ischemia. Labwork obtained to evaluate for leukocytosis, anemia, and electrolyte derangement. Chest x-ray obtained to evaluate for acute lung pathology, cardiac size, or mediastinal abnormality. History & Record Review Discussion w/independent historian: Patient and Family Additional record(s) reviewed:: Prior outpatient record, Prior ED visit and Prior labs Lab Data Attestation: I reviewed the patient's lab results. Labs: Laboratory Results - last 24 hr 05/04/23 16:59 WBC 6.8 RBC 4.30 L Hgb 13.7 Hct 42.0 MCV 97.7 H MCH 31.9 MCHC 32.6 RDW Std Deviation 47.9 H RDW Coeff of Wenceslao 13.5 Plt Count 244 MPV 9.9 Immature Gran % (Auto) 0.300 Neut % (Auto) 74.8 H Lymph % (Auto) 11.6 L [place] % (Auto) 10.7 H Eos % (Auto) 1.9 Baso % (Auto) 0.7 Absolute Neuts (auto) 5.1 Absolute Lymphs (auto) 0.79 L Nucleated RBC % 0 Sodium 139 Potassium 5.1 Chloride 108 H Carbon Dioxide 23.0 Anion Gap 8 BUN 28 H Creatinine 1.90 H Estim Creat Clear Calc 39.28 Est GFR (MDRD) Af Amer 46 L Est GFR (MDRD) Non-Af 38 L BUN/Creatinine Ratio 14.7 Glucose 80 Calcium 9.5 Troponin I High Sens 7 Radiography Chest X-Ray - ED: 1 View, Read by ED Physician, Chronic Changes and No Infiltrates Diagnostic Testing: Clinical Impression(s) from Imaging Studies Chest X-Ray 05/04/23 16:45 IMPRESSION: No definite acute or significant abnormality seen. Electronically Signed: Roberto Murguia MD at 17:17 EDT , EKG Initial EKG: Attestation: I personally reviewed and interpreted this EKG as follows: Interpretation: Sinus Rhythm (Sinus at 77 with PVCs. No acute ischemia.) Treatment and Re-Evaluation :: CBC was normal white count at 6.8 with a hemoglobin of 13.7. Chemistry studies reveal a creatinine of 1.9 with a BUN of 28. This is increased from a creatinine of 0.97 in January of this year. Troponin is normal at 7. Portable chest x-ray per my interpretation reveals no acute abnormalities with chronic changes noted. Radiology interpretation is reviewed. EKG reveals no evidence of acute ischemia at this time. I did review the last cardiology note. It appears that they were discussing repeating an echocardiogram but I do not see recommendations for a repeat cardiac cath. That being said, patient's symptoms are concerning and that with exertion he gets chest pain, shortness of breath, diaphoresis, and a constricting sensation around his neck. I spoke with Dr. Arguello, on-call for cardiology. He agrees with the patient's story is concerning. He would like to have the patient admitted as unstable angina for cycling of cardiac enzymes. His Eliquis should be held tonight and tomorrow morning. He would like to do a repeat echocardiogram tomorrow morning and a potential heart cath tomorrow afternoon. He will see the patient in consult. I will speak with the hospitalist. Discharge Plan Triage Chief Complaint: Shortness of Breath ED Provider: Yolie Skinner Dx/Rx/DC Orders Clinical Impression: Unstable angina Prescriptions: No Action nitroglycerin 0.4 mg tablet, sublingual 0.4 mg SUBLINGUAL Q5-15M PRN (Reason: Chest Pain) Rx Instructions: do not exceed 3 doses per episode bupropion HCl [Wellbutrin SR] 150 mg tablet sustained-release 12 hr 150 mg PO BID oxcarbazepine 150 mg tablet 150 mg PO BID Qty: 60 3RF oxcarbazepine 300 mg tablet 300 mg PO BID Eliquis DVT-PE Treat 30D Start 5 mg (74 tabs) tablets,dose pack 5 mg PO BID lisinopril 10 mg tablet 10 mg PO DAILY Qty: 30 6RF salmeterol 1 PUFF inhaler 2 puff INHALATION DAILY Patient Comments: breathing budesonide 1 PUFF inhaler 2 puff INHALATION BID Patient Comments: breathing albuterol sulfate 1 PUFF inhaler 1 - 2 puff INHALATION Q4H PRN PRN (Reason: Sob &/Or Wheezing) escitalopram oxalate 10 MG tablet 10 mg PO DAILY carvedilol 3.125 mg tablet 3.125 mg PO BID Qty: 60 6RF Rx Instructions: must administer with a meal/food Primary Care Provider: Eduin Watts Referrals: Eduin Watts MD [Primary Care Provider] - Disposition Disposition: Acute Care Hospital [facility]
--- NOTE | 2023-05-04 16:45 | RAD_ITS ---
STUDY: X-RAY CHEST REASON FOR EXAM: Male, 63 years old. chest pain TECHNIQUE: Single AP portable view of the chest. COMPARISON: 09/22/2022. FINDINGS: The lungs are clear and expanded. There is no demonstrated pleural abnormality. Normal size heart. Normal mediastinum and leisa. Normal visualized pulmonary arteries. Normal visualized aortic arch and descending thoracic aorta. Normal visualized thoracic spine. Normal visualized ribs, clavicles, and shoulders. There is no demonstrated abnormality of the visualized soft tissue structures of the upper abdomen. Stable linear calcification in the left upper quadrant. RAD/Chest 1 View (Portable) IMPRESSION: No definite acute or significant abnormality seen. Electronically Signed: Roberto Murguia MD at 17:17 EDT ,
[2023-05-04 17:06] LABS: Absolute Lymphocyte Count 0.79 X10^3/uL (0.83-4.51); Absolute Neutrophil Count 5.1 X10^3/uL (2.0-7.7); Basophil# 0.05 X10^3/uL; Basophil% 0.7 % (0-1); Eosinophil# 0.13 X10^3/uL; Eosinophils% 1.9 % (0-5); Hemoglobin 13.7 g/dL (13.0-16.5); Lymphocyte # 0.79 X10^3/ul (0.83-4.51); Lymphocyte % 11.6 % (19-41); Mean Corp Hgb Conc 32.6 g/dL (32-36); Mean Corpuscular Hgb 31.9 pg (27.0-32.0); Mean Corpuscular Volume 97.7 fL (80-94); Mean Platelet Vol. 9.9 fl (6.2-12.0); Monocyte# 0.73 X10^3/uL; Monocyte% 10.7 % (0-10); NRBC Flagged by Analyzer 0 % (0-5); Neutrophil # 5.11 X10^3/uL (2.7-7.7); Neutrophil % 74.8 % (47-70); Platelet Count 244 K/mm3 (150-450); RBC Distribution Width CV 13.5 % (11.6-14.6); RBC Distribution Width SD 47.9 fl (35.1-43.9); White Blood Count 6.8 K/mm3 (4.4-11.0)
[2023-05-04 17:37] LABS: Anion Gap 8 (5-15); BUN 28 mg/dL (7-18); BUN/Creat Ratio 14.7 RATIO (10-20); Calcium,Total 9.5 mg/dL (8.5-10.1); Chloride 108 mmol/L (98-107); EST Glomerular Filtration Rate 38 mL/min (>60); Est Glom Filt Rate - Afr Amer 46 mL/min (>60); Estimated Creatinine Clearance 39.28 ml/min; Glucose 80 mg/dL (74-106); Potassium 5.1 mmol/L (3.5-5.1); Sodium Level 139 mmol/L (136-145); Troponin-I HS (w/2H Reflex) 7 pg/mL (3.0-78.0)
[2023-05-04] MEDS: Aspirin 81 MG TAB.CHEW 324 MG PO (17:59)
[2023-05-04 19:03] LABS: Reflex Troponin-HS? (from REC) Y
--- NOTE | 2023-05-04 19:26 | PCM.HP.STD ---
HPI - General General Date of Admission: 05/04/23 Date of Service: 05/04/23 Chief Complaint: sob HPI Narrative ELOINA TOVAR, is a 63 M with a significant history of cardiac arrest; COPD; seizure disorder; DVT; PE; proximal A-fib morbid obesity status post bariatric surgery; colon cancer status post colectomy; seizure disorder; CAD but with no stents who presents to the emergency department with 3 to 4-day history of progressively worsening shortness of breath. His shortness of breath worsens with exertion. His shortness of breath improved with rest. Associated with his symptoms is substernal chest pain that is intermittent and of high intensity of 6 out of 10. His chest pain radiated to underneath his left breast. His chest pain improves with rest and worsens with exertion. He described chest pain as a punch to his chest.. Further he reports nausea and diaphoresis. Also he reports presyncope where he blacked out. About 3 to 4-day before presentation he took nitroglycerin for chest pain but the nitroglycerin did not help him. Further patient reports chronic orthopnea. Also he has paroxysmal nocturnal dyspnea. Three days before presentation he called and saw his PCP at the office. His PCP prescribed antibiotic for possible bronchitis. Emergency department discussed the case with cardiology who recommended patient's Eliquis be held for possible cath next day. [facility] Medical History AA (alcohol abuse) Abscess of right leg Arthritis Bronchial asthma Chronic pain syndrome COPD (chronic obstructive pulmonary disease) DM type 2 (diabetes mellitus, type 2) JOVEL (dyspnea on exertion) Dog bite of right calf Epilepsy undetermined as to focal or generalized, intractable Esophageal reflux Essential (primary) hypertension H/O: substance abuse History of colon cancer History of DVT (deep vein thrombosis) History of ETOH abuse History of suicide attempt Hyperlipidemia Migraine headache Morbid obesity Necrotizing soft tissue infection Neuropathy Personal hx-rectal/anal malignancy Post traumatic stress disorder (PTSD) Seizure disorder Home Medications albuterol sulfate 90 mcg/actuation aerosol inhaler 1 - 2 puff inhalation Q4H PRN PRN Sob &/Or Wheezing 04/02/19 [History Last Taken 04/02/19] escitalopram oxalate 10 mg tablet 10 mg PO DAILY 07/31/20 [History Last Taken Unknown] nitroglycerin 0.4 mg sublingual tablet 0.4 mg sublingual Q5-15M PRN Chest Pain 09/28/20 [History Last Taken Unknown] bupropion HCl 150 mg tablet,12 hr sustained-release (Wellbutrin SR) 150 mg PO BID 09/29/20 [History Last Taken Unknown] oxcarbazepine 150 mg tablet 150 mg PO BID #60 tabs 09/29/20 [Rx Last Taken Unknown] oxcarbazepine 300 mg tablet 300 mg PO BID 05/05/21 [History Last Taken Unknown] apixaban 5 mg (74 tabs) tablets in a dose pack ([employer] DVT-PE Treat 30D Start) 5 mg PO BID 11/07/22 [History Last Taken Unknown] lisinopril 10 mg tablet 10 mg PO DAILY #30 tabs 03/30/23 [Rx Last Taken Unknown] carvedilol 3.125 mg tablet 3.125 mg PO BID #60 tabs 05/04/23 [Rx Last Taken Unknown] Allergy/AdvReac Type Severity Reaction Status Date / Time meperidine HCl [From Demerol] Allergy Unknown Verified 05/04/23 16:03 Milk Containing Products Allergy Anaphylaxis Verified 05/04/23 16:03 (Dairy) [Milk Containing Products] penicillin G Allergy Hives Verified 05/04/23 16:03 wheat Allergy Other Verified 05/04/23 16:03 potassium AdvReac Other Verified 05/04/23 16:03 Surgical History History of bariatric surgery (2000) History of cervical spinal surgery History of left heart catheterization (03/1997) Social History Smoking Status: Never smoker Electronic Cigarette Use: not used alcohol intake: former year quit: 1999 substance use type: former substance user Date of last use: 20 years, Fentynal 4 years, crack/cocaine, heroin, painkillers and other details: LSD ROS ROS Narrative Pertinent positives and pertinent negatives as noted in HPI. All other systems were reviewed and are negative Vital Signs Vital Signs Vital Signs: 05/04/23 16:03 05/04/23 16:39 05/04/23 17:13 Temperature 97.3 F L Temperature Source Temporal Pulse Rate 71 Respiratory Rate 18 Respiratory Effort Short of Breath Blood Pressure 95/64 Blood Pressure Mean 74 Pulse Ox 100 Oxygen Delivery Method Room Air Room Air Room Air Weight Weight: 118.07 kg Body Mass Index (BMI) 38.4 Physical Exam Narrative Physical exam: General: Well-nourished, well-developed. Head: Normocephalic, atraumatic, no tenderness Eyes: Vision is grossly intact. EOMI ENT: Edentulous; moist mucous membranes, no rhinorrhea Neck: Nontender, No thyromegaly. CVS: Regular rate and rhythm. S1-S2 present. No murmur, gallop or rub. Respiratory : clear to auscultation bilaterally, chest wall nontender Abdomen: Soft, nontender, nondistended, normal bowel sounds, no masses : Deferred Back: Nontender, no CVA tenderness, no midline spinal tenderness, deformities, step-offs Extremities: Nontender full range of motion, no trauma Skin: Normal color, no trauma, abrasions Neuro: Alert, oriented, cranial nerves II through XII grossly intact. Psychiatry: Normal mood. Normal affect. Not depressed. Not anxious. Results Lab / Micro Data 05/04/23 16:59 05/04/23 16:59 Labs: Laboratory Results - last 24 hr 05/04/23 16:59: WBC 6.8, RBC 4.30 L, Hgb 13.7, Hct 42.0, MCV 97.7 H, MCH 31.9, MCHC 32.6, RDW Std Deviation 47.9 H, RDW Coeff of Wenceslao 13.5, Plt Count 244, MPV 9.9, Immature Gran % (Auto) 0.300, Neut % (Auto) 74.8 H, Lymph % (Auto) 11.6 L, Hunt % (Auto) 10.7 H, Eos % (Auto) 1.9, Baso % (Auto) 0.7, Absolute Neuts (auto) 5.1, Absolute Lymphs (auto) 0.79 L, Nucleated RBC % 0, Sodium 139, Potassium 5.1, Chloride 108 H, Carbon Dioxide 23.0, Anion Gap 8, BUN 28 H, Creatinine 1.90 H, Estim Creat Clear Calc 39.28, Est GFR (MDRD) Af Amer 46 L, Est GFR (MDRD) Non-Af 38 L, BUN/Creatinine Ratio 14.7, Glucose 80, Calcium 9.5, Troponin I High Sens 7 Radiology Impression Chest X-Ray 05/04/23 16:45 IMPRESSION: No definite acute or significant abnormality seen. Electronically Signed: Roberto Murguia MD at 17:17 EDT , Assessment & Plan Assessment/Plan (1) Unstable angina: PLAN: Plan Unstable angina PET stress test on 11/14/2022 get ejection fraction was 49%. Normal pharmacological perfusion stress test. Echocardiogram on 08/09/2022 showed EF of 45%. Mild eccentric mitral valve insufficiency. Mild tricuspid valve insufficiency. Mild aortic valve insufficiency. The pulmonic valve was not well visualized. Per cardiology recommendation patient's Eliquis will be held. Also echocardiogram ordered per cardiology recommendation. We will keep n.p.o. after midnight. Initial troponin is unremarkable. Trend troponin. Daily aspirin ordered. Lipid panel 02/02/2023 showed LDL cholesterol of 90; triglyceride 47; cholesterol 155. EKG reviewed showed sinus rhythm with PVCs. No ST or T wave abnormalities. Lisinopril and carvedilol continued. History of DVT, PE and atrial fibrillation Eliquis held. Heparin drip ordered. DVT prophylaxis: Not indicated as patient is on heparin drip. Seizure disorder: Stable. Oxcarbazepine continued. Depression/anxiety: Stable. Bupropion continued. Time spent in the patient's overall evaluation,decision-making process, review of diagnostic data, adjustment of management, discussion with other providers, nursing nursing and ancillary staff involved in patient's care documentation, 65 minutes. Charges/Coding Visit Charges Inpatient E&M: 03680 Init Hosp L3
[2023-05-04 19:32] VITALS: BP 111/74; PULSE 77; RESP 22; TEMP 36; O2SAT 95
[2023-05-04 19:52] LABS: Troponin-I HS 7 pg/mL (3.0-78.0)
[2023-05-04 20:35] VITALS: BP 141/99; PULSE 66; RESP 18; TEMP 36.7; O2SAT 97
[2023-05-04 20:42] VITALS: BMI 38.0
[2023-05-04 21:17] LABS: International Normalized Ratio 1.3; Prothrombin Time (Protime)PT. 16.2 SECONDS (11.7-14.9)
[2023-05-04 21:18] LABS: Partial Thromboplast Time 32.1 Seconds (24.1-36.2)
[2023-05-04] MEDS: Heparin Injection (Vial) 5,000 UNIT/ML VIAL 4000 UNIT SC (22:59)
[2023-05-04 23:05] LABS: Troponin-I HS 8 pg/mL (3.0-78.0)
[2023-05-04] MEDS: HEPARIN/D5w 25,000 UNITS 25,000 UNITS/250 ML IV.SOLN. 10 UNITS CONT INF (23:10)
[2023-05-04] MEDS: OXcarbazepine 150 MG Tablet PO (23:11)
[2023-05-04] MEDS: OXcarbazepine 300 MG Tablet PO (23:11)
[2023-05-04] MEDS: buPROPion (SR) 150 MG Tablet.SA PO (23:11)
[2023-05-04 23:17] VITALS: BP 118/83; PULSE 66; RESP 16; TEMP 36.7; O2SAT 92
[2023-05-05 05:17] VITALS: BP 109/85; PULSE 63; RESP 16; TEMP 36.6; O2SAT 93
[2023-05-05 05:26] LABS: Absolute Neutrophil Count 2.9 X10^3/uL (2.0-7.7); Basophil# 0.05 X10^3/uL; Eosinophil# 0.15 X10^3/uL; Eosinophils% 3.1 % (0-5); Hematocrit 40.1 % (40-54); Lymphocyte % 24.5 % (19-41); Mean Corp Hgb Conc 32.4 g/dL (32-36); Mean Corpuscular Hgb 32.1 pg (27.0-32.0); Mean Platelet Vol. 9.7 fl (6.2-12.0); Monocyte% 12.3 % (0-10); NRBC Flagged by Analyzer 0 % (0-5); Neutrophil # 2.88 X10^3/uL (2.7-7.7); Neutrophil % 58.9 % (47-70); Platelet Count 212 K/mm3 (150-450); RBC Distribution Width CV 13.6 % (11.6-14.6); RBC Distribution Width SD 49.1 fl (35.1-43.9); Red Blood Count 4.05 M/mm3 (4.6-6.2); White Blood Count 4.9 K/mm3 (4.4-11.0)
[2023-05-05] MEDS: Lisinopril 10 MG Tablet PO (05:51)
[2023-05-05] MEDS: Aspirin 81 MG TAB.CHEW PO (05:51)
--- NOTE | 2023-05-05 05:55 | ECHOCS_ITS ---
Reason For Study: Chest Pain Procedure This was a 2D Doppler, Color Flow transthoracic echocardiogram. The study was technically difficult. Contrast injection was performed. Exam performed portable in patient room. Left Ventricle Apical false tendon noted. Mild global left ventricular systolic dysfunction. The estimated ejection fraction is 45 %. Right Ventricle Normal RV size. Normal systolic function. Atria Normal left atrium. Normal right atrium. Hypermobile atrial septum. Bubble contrast study negative for right to left interatrial shunt. Mitral Valve The mitral valve is structurally normal. No prolapse or stenosis seen. Mild (1+) mitral valve insufficiency. Tricuspid Valve Normal tricuspid valve. Trivial tricuspid valve insufficiency. Unable to estimate RV systolic pressure due to insufficient tricuspid regurgitant envelope. Aortic Valve Trisinus/trileaflet aortic valve. Trivial aortic valve insufficiency. Pulmonic Valve Normal pulmonic valve. Great Vessels Moderately dilated aortic root. Pericardium/Pleural No pericardial effusion. Medication Diluted definity 4ml given slow IV push to enhance endocardial definition. Performed a rapid injection of agitated mix of 9 cc saline and 1cc air to assess for atrial septal defect. MMode/2D Measurements & Calculations LVIDd: 5.3 cm IVSd: 1.4 cm Ao root diam: 4.8 cm LVIDs: 4.0 cm LVPWd: 1.2 cm LA dimension: 4.6 cm RVDd: 4.4 cm FS: 25.8 % LAV(MOD-bp): 54.0 ml LVAd ap4: 37.3 cm2 SV(MOD-sp4): 61.9 ml LAV(MOD-bp) Indexed: 23.5 ml/m2 LVLd ap4: 8.5 cm LAV(MOD-sp2): 59.1 ml EDV(MOD-sp4): 131.8 ml LAV(MOD-sp4): 47.7 ml EDV(sp4-el): 139.1 ml LVAs ap4: 24.7 cm2 LVLs ap4: 7.5 cm ESV(MOD-sp4): 69.9 ml ESV(sp4-el): 68.8 ml EF(MOD-sp4): 46.9 % EF(sp4-el): 50.6 % SV(sp4-el): 70.4 ml LA A4 area: 17.0 cm2 Time Measurements MV dec time: 0.23 sec Doppler Measurements & Calculations MV E max zenon: 30.9 cm/sec Lat Peak E' Zenon: 9.9 cm/sec Med Peak E' Zenon: 7.9 cm/sec MV A max zenon: 74.3 cm/sec E/E' lat: 3.1 E/E' med: 3.9 MV E/A: 0.42 MV V2 max: 79.1 cm/sec Ao V2 max: 88.0 cm/sec LV V1 max: 74.0 cm/sec MV max P.5 mmHg Ao max P.1 mmHg LV V1 max P.2 mmHg MV V2 mean: 39.3 cm/sec Ao V2 mean: 55.6 cm/sec LV V1 mean P.1 mmHg MV mean P.79 mmHg Ao mean P.5 mmHg LV V1 mean: 48.1 cm/sec MV V2 VTI: 19.3 cm Ao V2 VTI: 17.8 cm LV V1 VTI: 14.9 cm AV (velocity ratio): 0.84 PA V2 max: 86.7 cm/sec ECHO/Echo Complete W/ Contrast Interpretation Summary The estimated ejection fraction is 45 %. Mild global left ventricular systolic dysfunction. Mild (1+) mitral valve insufficiency. Moderately dilated aortic root. Clinical correlation with CT is recommended. Bubble contrast study negative for right to left interatrial shunt. LV systolic function is unchanged from prior echo 08/09/22. The study was techn ically difficult. Contrast injection was performed. Ordering Physician: Ramy Calvo Referring Physician: Eduin Watts Performed By: Adi Ortega RCS
[2023-05-05 06:08] LABS: Partial Thromboplast Time 94.9 Seconds (24.1-36.2)
[2023-05-05 06:28] LABS: Anion Gap 4 (5-15); BUN 25 mg/dL (7-18); BUN/Creat Ratio 20.8 RATIO (10-20); Calcium,Total 8.9 mg/dL (8.5-10.1); Chloride 109 mmol/L (98-107); EST Glomerular Filtration Rate 65 mL/min (>60); Est Glom Filt Rate - Afr Amer 78 mL/min (>60); Estimated Creatinine Clearance 62.19 ml/min; Glucose 79 mg/dL (74-106); Potassium 4.9 mmol/L (3.5-5.1); Sodium Level 140 mmol/L (136-145)
--- NOTE | 2023-05-05 08:38 | PCM.CONS.C ---
Assessment & Plan Assessment/Plan (1) Chest pain: (2) Essential (primary) hypertension: (3) Hyperlipidemia: (4) Dilated aortic root: PLAN: Plan Patient's troponins were negative. He currently is not having any chest discomfort. Reviewed recent stress test from October 2022, this was negative for ischemia. Did obtain a cardiac CT as we were concerned that his chest pain could be related to his dilated aorta as on his echocardiogram it did demonstrate an increase in his aortic root. This was negative for dissecting aneurysm. Feel that we can treat this medically by adding isosorbide. We will have patient follow-up in the office in the near future. If his chest pain continues would then pursue a diagnostic heart catheterization. HPI Consult Data Date of Consult: 05/05/23 HPI Narrative HPI Narrative: ELOINA TOVAR, is a 63 M who presented to [facility] ER on 05/04/23 with increase SOB, diaphoresis and chest pain. He states with any exertion he gets extremely short of breath and he feels like there is a constriction around his neck. He will also get pain under the left breast area and will break out in a sweat. When he sits to rest symptoms will slightly improve. Patient was admitted to PCU for further evaluation. His troponins were negative. Patient was last seen in our office in March 2023. He does have a history of hypertension and atrial fibrillation. Patient had a stress test in October 2022 which was negative for ischemia. Echocardiogram in July 2022 demonstrated mildly reduced ejection fraction of 45%. Mild to moderate dilated aortic root. Mild aortic insufficiency. [facility] Medical History AA (alcohol abuse) Abscess of right leg Arthritis Bronchial asthma Chronic pain syndrome COPD (chronic obstructive pulmonary disease) DM type 2 (diabetes mellitus, type 2) JOVEL (dyspnea on exertion) Dog bite of right calf Epilepsy undetermined as to focal or generalized, intractable Esophageal reflux Essential (primary) hypertension H/O: substance abuse History of colon cancer History of DVT (deep vein thrombosis) History of ETOH abuse History of suicide attempt Hyperlipidemia Migraine headache Morbid obesity Necrotizing soft tissue infection Neuropathy Personal hx-rectal/anal malignancy Post traumatic stress disorder (PTSD) Seizure disorder Home Medications albuterol sulfate 90 mcg/actuation aerosol inhaler 1 - 2 puff inhalation Q4H PRN PRN Sob &/Or Wheezing 04/02/19 [History Last Taken 04/02/19] escitalopram oxalate 10 mg tablet 10 mg PO DAILY 07/31/20 [History Last Taken Unknown] nitroglycerin 0.4 mg sublingual tablet 0.4 mg sublingual Q5-15M PRN Chest Pain 09/28/20 [History Last Taken Unknown] bupropion HCl 150 mg tablet,12 hr sustained-release (Wellbutrin SR) 150 mg PO BID 09/29/20 [History Last Taken Unknown] oxcarbazepine 150 mg tablet 150 mg PO BID #60 tabs 09/29/20 [Rx Last Taken Unknown] oxcarbazepine 300 mg tablet 300 mg PO BID 05/05/21 [History Last Taken Unknown] apixaban 5 mg (74 tabs) tablets in a dose pack ([employer] DVT-PE Treat 30D Start) 5 mg PO BID 11/07/22 [History Last Taken Unknown] lisinopril 10 mg tablet 10 mg PO DAILY #30 tabs 03/30/23 [Rx Last Taken Unknown] carvedilol 3.125 mg tablet 3.125 mg PO BID #60 tabs 05/04/23 [Rx Last Taken Unknown] isosorbide mononitrate 30 mg tablet,extended release 24 hr 30 mg PO DAILY #30 tabs 05/05/23 [Rx Last Taken Unknown] Allergy/AdvReac Type Severity Reaction Status Date / Time meperidine HCl [From Demerol] Allergy Unknown Verified 05/04/23 16:03 Milk Containing Products Allergy Anaphylaxis Verified 05/04/23 16:03 (Dairy) [Milk Containing Products] penicillin G Allergy Hives Verified 05/04/23 16:03 wheat Allergy Other Verified 05/04/23 16:03 potassium AdvReac Other Verified 05/04/23 16:03 Surgical History History of bariatric surgery (2000) History of cervical spinal surgery History of left heart catheterization (03/1997) Social History Smoking Status: Never smoker Electronic Cigarette Use: not used alcohol intake: former year quit: 1999 substance use type: former substance user Date of last use: 20 years, Fentynal 4 years, crack/cocaine, heroin, painkillers and other details: LSD ROS Constitutional Constitutional: Denies change in weight, chills, fatigue, frequent falls, headache(s) or lethargy Eyes Eyes: Denies acute decrease in peripheral vision, blurry vision or change in vision ENT HEENT: Reports dizziness; Denies dry mouth, epistaxis, headache(s), tinnitus or vertigo Cardiovascular Cardiovascular: Reports chest pain at rest, chest pain with activity, dyspnea on exertion and lightheadedness; Denies claudication, dyspnea at rest, edema, irregular heart rhythm, orthopnea, orthostatic symptoms, palpitations or pedal edema Respiratory/Chest Respiratory/Chest: Denies cough, dyspnea, dyspnea on exertion, tachypnea or wheezing Gastrointestinal Gastrointestinal: Denies abdominal pain, bloating, coffee ground emesis, diarrhea, heartburn, hematemesis, hematochezia, melena or nausea Genitourinary Genitourinary: Denies hematuria Musculoskeletal Musculoskeletal: Denies myalgias, numbness or tingling Neurologic Neurologic: Denies abnormal gait, abnormal speech, memory loss, paresthesias or weakness Physical Exam Const alert, oriented x3, no apparent distress and healthy appearing HEENT normocephalic, head/scalp atraumatic, hearing grossly normal bilaterally, external ears normal, external nose normal and moist oral mucous membranes Eyes PERRL, EOMs intact bilaterally, conjunctivae normal and no scleral icterus Neck no lymphadenopathy, supple and no JVD Resp normal respiratory effort and clear to auscultation bilaterally Cardio regular rate, regular rhythm, S1 normal heart sound, S2 normal heart sound, no murmurs, no rub, no gallops, no clicks, no JVD and peripheral pulses 2+ throughout GI normal to inspection, nondistended, normoactive bowel sounds, soft to palpation, non-tender and non-distended Extremity normal to inspection, normal capillary refill, no clubbing, cyanosis or edema and no pedal edema Neuro oriented x3, CN's II-XII intact bilaterally, moves all extremities and no focal motor deficits Psych cooperative and affect normal Risk Stratification Risk Stratification Applicable: Yes >/= 3 CAD Risk Factors (HTN, HLD, DM, family hx of CAD, or current smoker): Yes Aspirin Use in the Past 7 Days: No Severe Angina (>/= episodes in 24 hours): Yes EKG ST Changes >/= 0.5mm: No Positive Cardiac Marker: No Objective Data Vital Signs: Vital Signs Temp Pulse Resp BP Pulse Ox O2 Del Method 97.8 F 63 16 109/85 H 93 Room Air 05/05/23 05:17 05/05/23 05:17 05/05/23 05:17 05/05/23 05:17 05/05/23 05:05/05/23 07:44 Oxygen Delivery Method Room Air Weight: 257 lb 15.053 oz Body Mass Index (BMI) 38.0 Intake & Output: Intake and Output for Last 24 Hours 05/03/23 05/04/23 05/05/23 23:59 23:59 23:59 Intake Total 71.67 / 71.67 Balance 71.67 / 71.67 Lab / Micro Data 05/05/23 05:10 05/05/23 05:10 Labs: Laboratory Results - last 24 hr 05/04/23 16:59: WBC 6.8, RBC 4.30 L, Hgb 13.7, Hct 42.0, MCV 97.7 H, MCH 31.9, MCHC 32.6, RDW Std Deviation 47.9 H, RDW Coeff of Wenceslao 13.5, Plt Count 244, MPV 9.9, Immature Gran % (Auto) 0.300, Neut % (Auto) 74.8 H, Lymph % (Auto) 11.6 L, [place] % (Auto) 10.7 H, Eos % (Auto) 1.9, Baso % (Auto) 0.7, Absolute Neuts (auto) 5.1, Absolute Lymphs (auto) 0.79 L, Nucleated RBC % 0, Sodium 139, Potassium 5.1, Chloride 108 H, Carbon Dioxide 23.0, Anion Gap 8, BUN 28 H, Creatinine 1.90 H, Estim Creat Clear Calc 39.28, Est GFR (MDRD) Af Amer 46 L, Est GFR (MDRD) Non-Af 38 L, BUN/Creatinine Ratio 14.7, Glucose 80, Calcium 9.5, Troponin I High Sens 7 05/04/23 19:30: Troponin I High Sens 7 05/04/23 20:58: PT 16.2 H, INR 1.3, APTT 32.1 05/04/23 22:31: Troponin I High Sens 8 05/05/23 05:10: WBC 4.9, RBC 4.05 L, Hgb 13.0, Hct 40.1, MCV 99.0 H, MCH 32.1 H, MCHC 32.4, RDW Std Deviation 49.1 H, RDW Coeff of Wenceslao 13.6, Plt Count 212, MPV 9.7, Immature Gran % (Auto) 0.200, Neut % (Auto) 58.9, Lymph % (Auto) 24.5, [place]ot % (Auto) 12.3 H, Eos % (Auto) 3.1, Baso % (Auto) 1.0, Absolute Neuts (auto) 2.9, Absolute Lymphs (auto) 1.20, Nucleated RBC % 0, APTT 94.9 H*, Sodium 140, Potassium 4.9, Chloride 109 H, Carbon Dioxide 27.0, Anion Gap 4 L, BUN 25 H, Creatinine 1.20, Estim Creat Clear Calc 62.19, Est GFR (MDRD) Af Amer 78, Est GFR (MDRD) Non-Af 65, BUN/Creatinine Ratio 20.8 H, Glucose 79, Calcium 8.9 Cardiology Labs/Tests 05/04/23 16:59: WBC 6.8, RBC 4.30 L, Hgb 13.7, Hct 42.0, MCV 97.7 H, MCH 31.9, MCHC 32.6, Plt Count 244, MPV 9.9, Immature Gran % (Auto) 0.300, Neut % (Auto) 74.8 H, Lymph % (Auto) 11.6 L, [place] % (Auto) 10.7 H, Eos % (Auto) 1.9, Baso % (Auto) 0.7, Absolute Neuts (auto) 5.1, Nucleated RBC % 0, Sodium 139, Potassium 5.1, Chloride 108 H, Carbon Dioxide 23.0, Anion Gap 8, BUN 28 H, Creatinine 1.90 H, Est GFR (MDRD) Af Amer 46 L, Est GFR (MDRD) Non-Af 38 L, BUN/Creatinine Ratio 14.7, Glucose 80, Calcium 9.5 05/04/23 20:58: PT 16.2 H, INR 1.3, APTT 32.1 05/05/23 05:10: WBC 4.9, RBC 4.05 L, Hgb 13.0, Hct 40.1, MCV 99.0 H, MCH 32.1 H, MCHC 32.4, Plt Count 212, MPV 9.7, Immature Gran % (Auto) 0.200, Neut % (Auto) 58.9, Lymph % (Auto) 24.5, [place]ot % (Auto) 12.3 H, Eos % (Auto) 3.1, Baso % (Auto) 1.0, Absolute Neuts (auto) 2.9, Nucleated RBC % 0, APTT 94.9 H*, Sodium 140, Potassium 4.9, Chloride 109 H, Carbon Dioxide 27.0, Anion Gap 4 L, BUN 25 H, Creatinine 1.20, Est GFR (MDRD) Af Amer 78, Est GFR (MDRD) Non-Af 65, BUN/Creatinine Ratio 20.8 H, Glucose 79, Calcium 8.9 Radiography Diagnostic Testing: Radiology Impression Chest X-Ray 05/04/23 16:45 IMPRESSION: No definite acute or significant abnormality seen. Electronically Signed: Roberto Murguia MD at 17:17 EDT ,
--- NOTE | 2023-05-05 10:07 | CT_ITS ---
STUDY: CTA CHEST REASON FOR EXAM: Male, 63 years old. R/O aortic dissection and PE. Shortness of breath with rib pain under the left breast. RADIATION DOSAGE (If Supplied By Facility): CTDIvol = ( 13.7 ) mGy, DLP = ( 536.42 ) mGycm TECHNIQUE: The examination was performed with the intravenous administration of IV 100mL [id number]-370. Post-processing of the angiographic images was performed, with multiplanar reformation and 3D reconstruction. Individualized dose optimization techniques were used for this CT. COMPARISON: Comparison is made with prior examination of July 13, 2022. FINDINGS: Normal enhancement of the main pulmonary artery and right and left pulmonary arteries. Normal enhancement of the bilateral peripheral pulmonary arteries. There is no demonstrated pulmonary embolism. Normal thoracic aorta and visualized great vessels. There is no demonstrated aortic dissection. There are calcifications of the coronary arteries. Normal mediastinum. Normal hilar regions. Normal visualized trachea and bronchi. The lungs are well expanded. Normal pulmonary parenchyma. Normal pleura. Normal chest wall structures. There are degenerative changes of thoracic spine. There is evidence of the mesh. There are vague upper mid abdominal hernia. There is a 1.9 Zachery by 5.1 cm fluid collection most likely representing a postoperative seroma at the operative site. The patient is status post prior bariatric surgery. 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 CT/CTA Chest W/WO Contrast IMPRESSION: No evidence of pulmonary embolism. Coronary artery calcification. Prior bariatric surgery with postoperative changes and hernia repair in the upper mid abdomen. Electronically Signed: Carlos Shepherd MD at 11:21 EDT ,
[2023-05-05 10:15] VITALS: BP 123/84; PULSE 65; RESP 18; TEMP 36.7; O2SAT 96
[2023-05-05] MEDS: buPROPion (SR) 150 MG Tablet.SA PO (10:17)
[2023-05-05] MEDS: Escitalopram Oxalate 10 MG Tablet PO (10:17)
[2023-05-05] MEDS: OXcarbazepine 300 MG Tablet PO (10:17)
[2023-05-05] MEDS: OXcarbazepine 150 MG Tablet PO (10:18)
--- NOTE | 2023-05-05 10:31 | PN.HOSP_ITS ---
Subjective Subjective Doing well, no issues overnight. Chest pains improved. Troponins are normal Objective Data Objective Data Vital Signs: Vital Signs Temp Pulse Resp BP Pulse Ox O2 Del Method 98.1 F 65 95 H 123/84 H 96 Room Air 05/05/23 10:15 05/05/23 10:15 05/05/23 10:15 05/05/23 10:15 05/05/23 10:15 05/05/23 10:15 Oxygen Delivery Method Room Air Weight: 257 lb 15.053 oz Body Mass Index (BMI) 38.0 Intake & Output: Intake and Output for Last 24 Hours 05/04/23 05/05/23 05/06/23 03:59 03:59 03:59 Intake Total 71.67 / 71.67 Balance 71.67 / 71.67 Lab / Micro Data 05/05/23 05:10 05/05/23 05:10 Labs: Laboratory Results - last 24 hr 05/04/23 16:59: WBC 6.8, RBC 4.30 L, Hgb 13.7, Hct 42.0, MCV 97.7 H, MCH 31.9, MCHC 32.6, RDW Std Deviation 47.9 H, RDW Coeff of Wenceslao 13.5, Plt Count 244, MPV 9.9, Immature Gran % (Auto) 0.300, Neut % (Auto) 74.8 H, Lymph % (Auto) 11.6 L, [place] % (Auto) 10.7 H, Eos % (Auto) 1.9, Baso % (Auto) 0.7, Absolute Neuts (auto) 5.1, Absolute Lymphs (auto) 0.79 L, Nucleated RBC % 0, Sodium 139, Potassium 5.1, Chloride 108 H, Carbon Dioxide 23.0, Anion Gap 8, BUN 28 H, Creatinine 1.90 H, Estim Creat Clear Calc 39.28, Est GFR (MDRD) Af Amer 46 L, Est GFR (MDRD) Non-Af 38 L, BUN/Creatinine Ratio 14.7, Glucose 80, Calcium 9.5, Troponin I High Sens 7 05/04/23 19:30: Troponin I High Sens 7 05/04/23 20:58: PT 16.2 H, INR 1.3, APTT 32.1 05/04/23 22:31: Troponin I High Sens 8 05/05/23 05:10: WBC 4.9, RBC 4.05 L, Hgb 13.0, Hct 40.1, MCV 99.0 H, MCH 32.1 H, MCHC 32.4, RDW Std Deviation 49.1 H, RDW Coeff of Wenceslao 13.6, Plt Count 212, MPV 9.7, Immature Gran % (Auto) 0.200, Neut % (Auto) 58.9, Lymph % (Auto) 24.5, [place] % (Auto) 12.3 H, Eos % (Auto) 3.1, Baso % (Auto) 1.0, Absolute Neuts (auto) 2.9, Absolute Lymphs (auto) 1.20, Nucleated RBC % 0, APTT 94.9 H*, Sodium 140, Potassium 4.9, Chloride 109 H, Carbon Dioxide 27.0, Anion Gap 4 L, BUN 25 H, Creatinine 1.20, Estim Creat Clear Calc 62.19, Est GFR (MDRD) Af Amer 78, Est GFR (MDRD) Non-Af 65, BUN/Creatinine Ratio 20.8 H, Glucose 79, Calcium 8.9 Radiography Diagnostic Testing: Radiology Impression Chest X-Ray 05/04/23 16:45 IMPRESSION: No definite acute or significant abnormality seen. Electronically Signed: Roberto Murguia MD at 17:17 EDT , Physical Exam Narrative General: Alert, Oriented x3, Cooperative, No apparent distress HEENT: Atraumatic, PERRLA, EOMI, Normocephalic Oral: Moist Mucosa Neck: Supple, No JVD Lungs: Diminished, Normal air movement, No rhonchi, No wheeze, No rales Cardiovascular: Regular rate, Regular Rhythm, Normal S1, Normal S2, No murmurs Abdomen: Soft, Non Tender, Non-Distended, No Hepato-splenomegaly Extremities: No edema, Capillary Refill Less than 3 Seconds Skin: No rashes, No breakdown Musculoskeletal: No Tenderness to Palpation of Joints or Extremities Neurological: Cranial nerves II-XII grossly intact, Motor Exam 5/5 strength throughout, Sensory exam intact to light touch and pain Psych/Mental Status: Normal Affect, Appropriate Assessment & Plan Assessment/Plan (1) Unstable angina: PLAN: Plan 1. Onset able angina/chest pain rule out/A-fib/HTN/HLD/chronic systolic CHF ? Continue with the heparin drip, awaiting echo results ? Appreciate cardiology's assistance for possible catheter afternoon ? Can home blood pressure medications ? Previous echo on 08/09/2022 showed an EF of 45% ? Continue statin ? After procedure can transition back to Eliqu 2. Anxiety/depression ? Stable ? Can resume home medic patient 3. Seizure disorder ? Stable ? Continue with his home antiseizure medications DVT: Heparin drip Charges/Coding Visit Charges Inpatient E&M: 84160 Subs Hosp L2
[2023-05-05] MEDS: 0.9% Saline Lock 10 ML Syringe IV ×2 (10:59→13:46)
--- NOTE | 2023-05-05 13:13 | DCINST_ITS ---
Discharge Instructions Diet Discharge Diet: Low fat / Low cholesterol Activity Discharge Activity: Return to Normal Activity Dressing / Incision Call your doctor if you observe: Fever of 101 or Higher, Shortness of breath, Dizziness, Fainting spells, Swelling in the ankles, Chest pain and Increased palpitations (irregular heartbeat) Follow Up Care Test Results: Test results from this visit will be discussed in further detail at your follow- up appointment, if applicable. Discharge Plan Admission Admit Date/Time: 05/04/23 19:15 Attending Provider: Marco Whiteside Primary Care Provider: Eduin Watts Consulting Providers: Arben Arguello; Ramy Calvo; Miguel Angel Lopes Discharge Orders/Prescriptions Prescriptions: New isosorbide mononitrate 30 mg tablet extended release 24 hr 30 mg PO DAILY Qty: 30 0RF Continued nitroglycerin 0.4 mg tablet, sublingual 0.4 mg SUBLINGUAL Q5-15M PRN (Reason: Chest Pain) Rx Instructions: do not exceed 3 doses per episode bupropion HCl [Wellbutrin SR] 150 mg tablet sustained-release 12 hr 150 mg PO BID oxcarbazepine 150 mg tablet 150 mg PO BID Qty: 60 3RF oxcarbazepine 300 mg tablet 300 mg PO BID Eliquis DVT-PE Treat 30D Start 5 mg (74 tabs) tablets,dose pack 5 mg PO BID lisinopril 10 mg tablet 10 mg PO DAILY Qty: 30 6RF albuterol sulfate 1 PUFF inhaler 1 - 2 puff INHALATION Q4H PRN PRN (Reason: Sob &/Or Wheezing) escitalopram oxalate 10 MG tablet 10 mg PO DAILY carvedilol 3.125 mg tablet 3.125 mg PO BID Qty: 60 6RF Rx Instructions: must administer with a meal/food Referrals / Follow Up: Eduin Watts MD [Primary Care Provider] - Within 1 Week Gina Leblanc PA [Med Staff - [facility], [facility]] - Within 2 Weeks Disposition Disposition (needs filled in before D/C Order can be placed): Home, Self Care
[2023-05-05 13:37] LABS: Partial Thromboplast Time 48.6 Seconds (24.1-36.2)
[2023-05-05 13:45] VITALS: BP 121/86; PULSE 62; RESP 18; TEMP 36.5; O2SAT 96
--- NOTE | 2023-05-05 14:01 | PCM.DC.SUM ---
Providers Date of Admission: 05/04/23 Primary Care Physician: Dr. Eduin Watts MD Consultations 05/04/23 20:41 Consult: Cardiology Routine Consulting Provider: Arben Arguello Reason for Consult: Chest Pain EMERGENT Consult: No MD Notified: Yes Date Notified: 05/04/23 Time Notified: 19:22 Method of Notification: ED Physician Initiated 05/05/23 10:07 Consult: Vascular Surgery Routine Consulting Provider: Miguel Angel Lopes Reason for Consult: Concern for aortic aneurysm EMERGENT Consult: No MD Notified: Yes Date Notified: 05/05/23 Time Notified: 10:27 Method of Notification: Text Reason For Visit: CHEST PAIN Diagnosis Discharge Diagnosis (1) Unstable angina: Status: Acute Code(s): I20.0 - Unstable angina Medications at Discharge Home Medications albuterol sulfate 90 mcg/actuation aerosol inhaler 1 - 2 puff inhalation Q4H PRN PRN Sob &/Or Wheezing 04/02/19 escitalopram oxalate 10 mg tablet 10 mg PO DAILY 07/31/20 nitroglycerin 0.4 mg sublingual tablet 0.4 mg sublingual Q5-15M PRN Chest Pain 09/28/20 bupropion HCl 150 mg tablet,12 hr sustained-release (Wellbutrin SR) 150 mg PO BID 09/29/20 oxcarbazepine 150 mg tablet 150 mg PO BID #60 tabs 09/29/20 oxcarbazepine 300 mg tablet 300 mg PO BID 05/05/21 apixaban 5 mg (74 tabs) tablets in a dose pack (Eliquis DVT-PE Treat 30D Start) 5 mg PO BID 11/07/22 lisinopril 10 mg tablet 10 mg PO DAILY #30 tabs 03/30/23 carvedilol 3.125 mg tablet 3.125 mg PO BID #60 tabs 05/04/23 isosorbide mononitrate 30 mg tablet,extended release 24 hr 30 mg PO DAILY #30 tabs 05/05/23 Hospital Course Operations None Procedures 2-D Echocardiogram Summary of Care Provided Minutes Spent on Discharge: 36 Hospital Course: Per HPI: ELOINA TOVAR, is a 63 M with a significant history of cardiac arrest; COPD; seizure disorder; DVT; PE; proximal A-fib morbid obesity status post bariatric surgery; colon cancer status post colectomy; seizure disorder; CAD but with no stents who presents to the emergency department with 3 to 4-day history of progressively worsening shortness of breath. His shortness of breath worsens with exertion. His shortness of breath improved with rest. Associated with his symptoms is substernal chest pain that is intermittent and of high intensity of 6 out of 10. His chest pain radiated to underneath his left breast. His chest pain improves with rest and worsens with exertion. He described chest pain as a punch to his chest.. Further he reports nausea and diaphoresis. Also he reports presyncope where he blacked out. About 3 to 4-day before presentation he took nitroglycerin for chest pain but the nitroglycerin did not help him. Further patient reports chronic orthopnea. Also he has paroxysmal nocturnal dyspnea. Three days before presentation he called and saw his PCP at the office. His PCP prescribed antibiotic for possible bronchitis. Emergency department discussed the case with cardiology who recommended patient's Eliquis be held for possible cath next day. Hospital Course: 1. Unstable angina/A-fib/HTN/HLD/chronic systolic CHF/4 cm aortic root?63-year-old male presented to the hospital with unknown cardiac history. He was having what was felt to be unstable angina. Cardiology was consulted and was placed on a heparin drip. Cardiology felt that he would be safe for discharge and to be evaluated for his aortic root. They recommend starting him on Imdur 30 mg daily with outpatient follow-up for possible heart cath at a later time. Of note his echo did demonstrate an increased size in his aortic root from prior. I discussed with him the plan for discharge and he expressed understanding of the risk and benefits of going home and is okay with going home today. I do recommend outpatient follow-up with his PCP in 3 to 5 days and cardiology within the next 2 weeks. 2. Anxiety, depression, seizure disorder are all chronic issues which complicate his care. His home medications were continued where appropriate Weight / BMI Weight Weight: 257 lb 15.053 oz Body Mass Index (BMI) 38.0 ABG / Lab / Microbiology Data 05/05/23 05:10 05/05/23 05:10 Laboratory: Laboratory Results - last 24 hr 05/04/23 16:59: WBC 6.8, RBC 4.30 L, Hgb 13.7, Hct 42.0, MCV 97.7 H, MCH 31.9, MCHC 32.6, RDW Std Deviation 47.9 H, RDW Coeff of Wenceslao 13.5, Plt Count 244, MPV 9.9, Immature Gran % (Auto) 0.300, Neut % (Auto) 74.8 H, Lymph % (Auto) 11.6 L, [place] % (Auto) 10.7 H, Eos % (Auto) 1.9, Baso % (Auto) 0.7, Absolute Neuts (auto) 5.1, Absolute Lymphs (auto) 0.79 L, Nucleated RBC % 0, Sodium 139, Potassium 5.1, Chloride 108 H, Carbon Dioxide 23.0, Anion Gap 8, BUN 28 H, Creatinine 1.90 H, Estim Creat Clear Calc 39.28, Est GFR (MDRD) Af Amer 46 L, Est GFR (MDRD) Non-Af 38 L, BUN/Creatinine Ratio 14.7, Glucose 80, Calcium 9.5, Troponin I High Sens 7 05/04/23 19:30: Troponin I High Sens 7 05/04/23 20:58: PT 16.2 H, INR 1.3, APTT 32.1 05/04/23 22:31: Troponin I High Sens 8 05/05/23 05:10: WBC 4.9, RBC 4.05 L, Hgb 13.0, Hct 40.1, MCV 99.0 H, MCH 32.1 H, MCHC 32.4, RDW Std Deviation 49.1 H, RDW Coeff of Wenceslao 13.6, Plt Count 212, MPV 9.7, Immature Gran % (Auto) 0.200, Neut % (Auto) 58.9, Lymph % (Auto) 24.5, [place] % (Auto) 12.3 H, Eos % (Auto) 3.1, Baso % (Auto) 1.0, Absolute Neuts (auto) 2.9, Absolute Lymphs (auto) 1.20, Nucleated RBC % 0, APTT 94.9 H*, Sodium 140, Potassium 4.9, Chloride 109 H, Carbon Dioxide 27.0, Anion Gap 4 L, BUN 25 H, Creatinine 1.20, Estim Creat Clear Calc 62.19, Est GFR (MDRD) Af Amer 78, Est GFR (MDRD) Non-Af 65, BUN/Creatinine Ratio 20.8 H, Glucose 79, Calcium 8.9 05/05/23 13:18: APTT 48.6 H Radiography Diagnostic Testing: Radiology Impression Chest X-Ray 05/04/23 16:45 IMPRESSION: No definite acute or significant abnormality seen. Electronically Signed: Roberto Murguia MD at 17:17 EDT , Chest CTA 05/05/23 10:07 IMPRESSION: No evidence of pulmonary embolism. Coronary artery calcification. Prior bariatric surgery with postoperative changes and hernia repair in the upper mid abdomen. Electronically Signed: Carlos Shepherd MD at 11:21 EDT , D/C Instructions Discharge Diet: Low fat / Low cholesterol Call your doctor if you observe: Fever of 101 or Higher, Shortness of breath, Dizziness, Fainting spells, Swelling in the ankles, Chest pain and Increased palpitations (irregular heartbeat) Meaningful Use Info Meaningful Use Diagnoses (Choose all that apply): None applicable Discharge Plan Admission Admit Date/Time: 05/04/23 19:15 Attending Provider: Marco Whiteside Primary Care Provider: Eduin Watts Consulting Providers: Arben Arguello; Ramy Calvo; Miguel Angel Lopes Discharge Orders/Prescriptions Prescriptions: New isosorbide mononitrate 30 mg tablet extended release 24 hr 30 mg PO DAILY Qty: 30 0RF Continued nitroglycerin 0.4 mg tablet, sublingual 0.4 mg SUBLINGUAL Q5-15M PRN (Reason: Chest Pain) Rx Instructions: do not exceed 3 doses per episode bupropion HCl [Wellbutrin SR] 150 mg tablet sustained-release 12 hr 150 mg PO BID oxcarbazepine 150 mg tablet 150 mg PO BID Qty: 60 3RF oxcarbazepine 300 mg tablet 300 mg PO BID Eliquis DVT-PE Treat 30D Start 5 mg (74 tabs) tablets,dose pack 5 mg PO BID lisinopril 10 mg tablet 10 mg PO DAILY Qty: 30 6RF albuterol sulfate 1 PUFF inhaler 1 - 2 puff INHALATION Q4H PRN PRN (Reason: Sob &/Or Wheezing) escitalopram oxalate 10 MG tablet 10 mg PO DAILY carvedilol 3.125 mg tablet 3.125 mg PO BID Qty: 60 6RF Rx Instructions: must administer with a meal/food Referrals / Follow Up: Eduin Watts MD [Primary Care Provider] - Within 1 Week Gina Leblanc PA [Med Staff - [facility]] - Within 2 Weeks Disposition Disposition (needs filled in before D/C Order can be placed): Home, Self Care Charges/Coding Visit Charges Inpatient E&M: 37223 Disch Hosp >30min
[2023-05-05] MEDS: Isosorbide Mononitrate 30 MG Tablet PO (14:39)
--- NOTE | 2023-05-05 14:44 | CASEMGMT ---
RN CM notified that patient has order for discharge. RN CM in to discuss needs at discharge. Patient denies needs at discharge. Patient had no further questions or concerns at this time.
[2023-05-05 14:49] VITALS: O2SAT 96
--- NOTE | 2023-05-05 15:27 | CHAPLAIN ---
Type of Pastoral Visit _x__ Initial Visit ___ Follow-up Visit ___ On-call Visit ___ General Patient Visit ___ Spiritual Assessment ___ Family Conference ___ Bereavement ___ Rapid Response ___ Code Blue ___ Other (describe below) Pastoral Care Referral From _x__ Patient ___ Family ___ Nurse ___ Physician ___ Printing Engineer ___ Community Support Specialist ___ Other (describe below) Sacrament/Intervention _x__ Active listening ___ Anointing ___ Voodoo ___ Bereavement ___ Communion _x__ Dayana exploration ___ _x__ Life review _x__ Prayer ___ Reconciliation ___ Sacrament of Sick _x__ Supportive presence ___ Wedding ___ Other (describe below) Pastoral Comments patient is talkative about his life and health; friend is in the room; pt is also concerned about health of his with MS; both are on disability and limited in activities; pt identifies as a believer and member of a local sikhism although not active in attendance at this time; pt welcomes someone to talk with and prayers for self and family
[2023-05-05 16:15] VITALS: BP 110/75; PULSE 73; RESP 18; TEMP 36.6; O2SAT 94
== END 2023-05-05 13:39 | disposition home or self-care (01) ==
LOC: ED 19:10 → PCU 19:39
PROVIDERS: Admitting Provider Hospitalist; Emergency Provider Emergency Medicine; PCP Family Medicine; Visit Provider Family Medicine
DX: I25.110 Atherosclerotic heart disease of native coronary artery with unstable angina pectoris (principal); J44.9 Chronic obstructive pulmonary disease, unspecified; I11.0 Hypertensive heart disease with heart failure; I50.22 Chronic systolic (congestive) heart failure; E11.40 Type 2 diabetes mellitus with diabetic neuropathy, unspecified; I77.819 Aortic ectasia, unspecified site; I48.0 Paroxysmal atrial fibrillation; E66.01 Morbid (severe) obesity due to excess calories; G40.409 Other generalized epilepsy and epileptic syndromes, not intractable, without status epilepticus; Z85.038 Personal history of other malignant neoplasm of large intestine; Z90.49 Acquired absence of other specified parts of digestive tract; Z98.84 Bariatric surgery status; F41.9 Anxiety disorder, unspecified; G89.4 Chronic pain syndrome; N64.4 Mastodynia; E78.5 Hyperlipidemia, unspecified; Z68.38 Body mass index [BMI] 38.0-38.9, adult; Z86.718 Personal history of other venous thrombosis and embolism; Z86.711 Personal history of pulmonary embolism; K21.9 Gastro-esophageal reflux disease without esophagitis; F32.A Depression, unspecified; Z79.899 Other long term (current) drug therapy; Z79.01 Long term (current) use of anticoagulants
CPT/HCPCS: 36415; 71045; 71275; 80048; 84484; 85025; 85610; 85730; 93005; 93306; 96372; 99221; 99285; Q9957; Q9967; A4216; C8929; G0378

== ENCOUNTER → 2023-08-17 | Outpatient (CLI) | payer MEDICARE, MEDICAID, SELFPAY ==
--- NOTE | 2023-08-17 14:12 | RAD_ITS ---
STUDY: X-RAY - RIGHT KNEE REASON FOR EXAM: Male, 63 years old. Right knee pain. TECHNIQUE: 4 view(s) of the knee. COMPARISON: None. FINDINGS: Osteopenia. Mild tricompartmental arthrosis. Small joint effusion. Normal surrounding soft tissues. RAD/Knee 4 or More Views IMPRESSION: Osteopenia with mild tricompartmental arthrosis and small joint effusion. Electronically Signed: Eleno Maya MD at 14:52 EST ,
[2023-08-17 18:18] LABS: Anion Gap 5 (5-15); BUN 17 mg/dL (7-18); BUN/Creat Ratio 14.2 RATIO (10-20); Calcium,Total 9.3 mg/dL (8.5-10.1); Chloride 105 mmol/L (98-107); Cholesterol 195 mg/dL (200); EST Glomerular Filtration Rate 65 mL/min (>60); Est Glom Filt Rate - Afr Amer 78 mL/min (>60); Glucose 83 mg/dL (74-106); High Density Lipoprotein 69 mg/dL; Potassium 4.4 mmol/L (3.5-5.1); Sodium Level 137 mmol/L (136-145); Triglycerides 59 mg/dL; Very Low Density Lipoprotein 12 mg/dL (5-40)
== END | disposition home or self-care (01) ==
LOC: MTLAB 14:10
PROVIDERS: PCP Family Medicine; Referring Provider Family Medicine; Visit Provider Family Medicine
DX: M25.561 Pain in right knee (principal); I10 Essential (primary) hypertension
CPT/HCPCS: 36415; 73564; 80048; 80061

== ENCOUNTER → 2023-10-06 | Outpatient (CLI) | payer MEDICARE, MEDICAID, SELFPAY ==
[2023-10-06 15:35] LABS: Absolute Lymphocyte Count 1.01 X10^3/uL (0.83-4.51); Basophil# 0.06 X10^3/uL; Eosinophil# 0.09 X10^3/uL; Eosinophils% 1.6 % (0-5); Hematocrit 43.1 % (40-54); Hemoglobin 14.4 g/dL (13.0-16.5); Lymphocyte # 1.01 X10^3/ul (0.83-4.51); Lymphocyte % 17.6 % (19-41); Mean Corp Hgb Conc 33.4 g/dL (32-36); Mean Corpuscular Hgb 31.9 pg (27.0-32.0); Mean Corpuscular Volume 95.4 fL (80-94); Monocyte# 0.63 X10^3/uL; NRBC Flagged by Analyzer 0 % (0-5); Neutrophil # 3.95 X10^3/uL (2.7-7.7); Neutrophil % 68.6 % (47-70); Platelet Count 293 K/mm3 (150-450); RBC Distribution Width CV 13.2 % (11.6-14.6); RBC Distribution Width SD 46.6 fl (35.1-43.9); Red Blood Count 4.52 M/mm3 (4.6-6.2); White Blood Count 5.8 K/mm3 (4.4-11.0)
[2023-10-06 15:52] LABS: BNP,B-Type NATRIURETIC PEPTIDE 33.4 pg/mL (0-100)
[2023-10-06 16:04] LABS: Anion Gap 4 (5-15); BUN 18 mg/dL (7-18); BUN/Creat Ratio 16.1 RATIO (10-20); Calcium,Total 9.4 mg/dL (8.5-10.1); Chloride 104 mmol/L (98-107); Creatinine, Serum 1.12 mg/dL (0.70-1.30); EST Glomerular Filtration Rate 70 mL/min (>60); Est Glom Filt Rate - Afr Amer 85 mL/min (>60); Free T3 1.7 pg/mL (2.18-3.98); Glucose 101 mg/dL (74-106); Potassium 4.8 mmol/L (3.5-5.1); Sodium Level 137 mmol/L (136-145); T4 Free Direct 0.67 ng/dL (0.76-1.46)
[2023-10-06 16:11] LABS: Vitamin D,25 Hydroxy 29.1 ng/mL
== END | disposition home or self-care (01) ==
LOC: LAB 14:49
PROVIDERS: PCP Family Medicine; Referring Provider Nurse Practitioner Gerontology; Visit Provider Nurse Practitioner Gerontology
DX: R53.83 Other fatigue (principal); E55.9 Vitamin D deficiency, unspecified; R06.09 Other forms of dyspnea
CPT/HCPCS: 36415; 80048; 82306; 83880; 84439; 84443; 84481; 85025

== ENCOUNTER → 2023-12-14 | Outpatient (CLI) | payer MEDICARE, MEDICAID, SELFPAY ==
[2023-12-14 17:26] LABS: Absolute Lymphocyte Count 0.94 X10^3/uL (0.83-4.51); Absolute Neutrophil Count 3.3 X10^3/uL (2.0-7.7); Basophil# 0.05 X10^3/uL; Eosinophil# 0.09 X10^3/uL; Eosinophils% 1.8 % (0-5); Hematocrit 43.1 % (40-54); Hemoglobin 13.8 g/dL (13.0-16.5); Lymphocyte # 0.94 X10^3/ul (0.83-4.51); Mean Corpuscular Hgb 30.9 pg (27.0-32.0); Mean Corpuscular Volume 96.6 fL (80-94); Mean Platelet Vol. 9.8 fl (6.2-12.0); Monocyte# 0.58 X10^3/uL; Monocyte% 11.7 % (0-10); NRBC Flagged by Analyzer 0 % (0-5); Neutrophil # 3.27 X10^3/uL (2.7-7.7); Neutrophil % 66.3 % (47-70); Platelet Count 265 K/mm3 (150-450); RBC Distribution Width CV 12.9 % (11.6-14.6); RBC Distribution Width SD 46.1 fl (35.1-43.9); Red Blood Count 4.46 M/mm3 (4.6-6.2); White Blood Count 4.9 K/mm3 (4.4-11.0)
[2023-12-14 17:48] LABS: Vitamin B12 428 pg/mL (211-911)
[2023-12-15 07:17] LABS: ALB/GLOB Ratio 1.1 RATIO (0.9-2.4); AST(SGOT) 24 U/L (15-37); Alanine Aminotransfer ALT/SGPT 18 U/L (16-61); Albumin, Serum 3.7 g/dL (3.2-5.0); Alkaline Phosphatase 99 U/L (45-117); Anion Gap 6 (5-15); BUN 20 mg/dL (7-18); BUN/Creat Ratio 14.2 RATIO (10-20); Calcium,Total 8.9 mg/dL (8.5-10.1); Chloride 111 mmol/L (98-107); Creatinine, Serum 1.41 mg/dL (0.70-1.30); EST Glomerular Filtration Rate 54 mL/min (>60); Est Glom Filt Rate - Afr Amer 65 mL/min (>60); Free T3 1.9 pg/mL (2.18-3.98); Globulin 3.5 g/dL (2.2-4.2); Glucose 105 mg/dL (74-106); Potassium 4.6 mmol/L (3.5-5.1); Prealbumin 18.8 mg/dL (20.0-40.0); Protein, Total 7.2 g/dL (6.4-8.2); Sodium Level 141 mmol/L (136-145); T4 Free Direct 0.66 ng/dL (0.76-1.46); Thyroid Stim Hormone (TSH) 1.41 uIU/mL (0.358-3.74)
== END | disposition home or self-care (01) ==
LOC: MTLAB 14:18
PROVIDERS: PCP Family Medicine; Referring Provider Family Medicine; Visit Provider Family Medicine
DX: R53.83 Other fatigue (principal); E03.9 Hypothyroidism, unspecified
CPT/HCPCS: 36415; 80053; 82607; 84134; 84439; 84443; 84481; 85025

== ENCOUNTER 2024-01-11 17:35 | Emergency (ER) | payer MEDICARE, MEDICAID, SELFPAY ==
[2024-01-11 17:36] VITALS: BP 81/66; PULSE 72; RESP 14; TEMP 35.8; O2SAT 95; BMI 38.2
--- NOTE | 2024-01-11 18:08 | CT_ITS ---
EXAM: CT HEAD WITHOUT INTRAVENOUS CONTRAST CLINICAL INDICATION: head injury TECHNIQUE: Multiple axial images were obtained of the head without intravenous contrast. This CT exam was performed using one or more of the following dose reduction techniques: automated exposure control, adjustment of the mA and/or kV according to patient size, and/or use of iterative reconstruction technique. COMPARISON: No relevant prior studies available. FINDINGS: BRAIN AND EXTRA-AXIAL SPACES: Unremarkable. No intra- or extra-axial hemorrhage. No evidence of acute infarct. No intracranial mass or mass effect. There is preservation of the osorio/white matter interface. Posterior fossa structures are unremarkable. Ventricles are appropriate for age. No hydrocephalus. Basal cisterns are patent. BONES/JOINTS: Unremarkable. No discrete lytic or blastic abnormalities. SINUSES: Unremarkable as visualized. Clear. MASTOID AIR CELLS: Unremarkable. Clear. ORBITS: Visualized globes, extraocular muscles, optic nerves and retrobulbar fat appear unremarkable. CT/Brain/Head without Contrast IMPRESSION: Negative head/brain CT without intravenous contrast. Electronically Signed: Cyrus Vazquez MD at 19:12 EDT ,
--- NOTE | 2024-01-11 18:09 | EX.ED.DYSGE1 ---
HPI History of Present Illness Chief Complaint: Head Injury Informant: patient Onset/Context/Timing Onset: Today Narrative Narrative: Patient presents after a fall at home. Patient fell approximately 2 hours ago coming out of his garage. He states he has weakness and falls frequently. His right leg felt weak and he caught his foot causing him to fall forward. He did strike his head on the ground. He is on Eliquis and was told if he ever hits his head he should come in for evaluation. Patient does report some left anterior chest wall tenderness from his fall as well. He denies shortness of breath. Patient reports chronic neck pain that is unchanged from baseline. [facility] Medical History AA (alcohol abuse) Abscess of right leg Arthritis Bronchial asthma Chronic pain syndrome COPD (chronic obstructive pulmonary disease) DM type 2 (diabetes mellitus, type 2) JOVEL (dyspnea on exertion) Dog bite of right calf Epilepsy undetermined as to focal or generalized, intractable Esophageal reflux Essential (primary) hypertension H/O: substance abuse History of colon cancer History of DVT (deep vein thrombosis) History of ETOH abuse History of suicide attempt Hyperlipidemia Migraine headache Morbid obesity Necrotizing soft tissue infection Neuropathy Personal hx-rectal/anal malignancy Post traumatic stress disorder (PTSD) Seizure disorder Home Medications albuterol sulfate 90 mcg/actuation aerosol inhaler 1 - 2 puff inhalation Q4H PRN PRN Sob &/Or Wheezing 04/02/19 [History Last Taken 04/02/19] escitalopram oxalate 10 mg tablet 10 mg PO DAILY 07/31/20 [History Last Taken Unknown] nitroglycerin 0.4 mg sublingual tablet 0.4 mg sublingual Q5-15M PRN Chest Pain 09/28/20 [History Last Taken Unknown] oxcarbazepine 150 mg tablet 150 mg PO BID #60 tabs 09/29/20 [Rx Last Taken Unknown] oxcarbazepine 300 mg tablet 300 mg PO BID 05/05/21 [History Last Taken Unknown] apixaban 5 mg (74 tabs) tablets in a dose pack ([employer] DVT-PE Treat 30D Start) 5 mg PO BID 11/07/22 [History Last Taken Unknown] bupropion HCl 150 mg tablet,12 hr sustained-release (Wellbutrin SR) 150 mg PO QHS 10/06/23 [History Last Taken Unknown] isosorbide mononitrate 30 mg tablet,extended release 24 hr 30 mg PO BID dose increased to twice a day #180 tabs 10/11/23 [Rx Last Taken Unknown] lisinopril 10 mg tablet See Rx Instructions .Route .COMPLEX #30 tabs 10/31/23 [Rx Last Taken Unknown] carvedilol 3.125 mg tablet 3.125 mg PO BID #60 TABLETS 12/13/23 [Rx Last Taken Unknown] Allergy/AdvReac Type Severity Reaction Status Date / Time meperidine HCl [From Demerol] Allergy Unknown Verified 01/11/24 17:41 Milk Containing Products Allergy Anaphylaxis Verified 01/11/24 17:41 (Dairy) [Milk Containing Products] penicillin G Allergy Hives Verified 01/11/24 17:41 wheat Allergy Other Verified 01/11/24 17:41 potassium AdvReac Other Verified 01/11/24 17:41 Surgical History History of bariatric surgery (2000) History of cervical spinal surgery History of left heart catheterization (03/1997) Social History Smoking Status: Never smoker Electronic Cigarette Use: not used alcohol intake: former year quit: 1999 substance use type: former substance user Date of last use: 20 years, Fentynal 4 years, crack/cocaine, heroin, painkillers and other details: LSD ROS ROS ED Constitutional Constitutional ED: Denies chills or fever(s) Eyes Eyes: Denies change in vision or discharge from eye(s) ENT ENT ED: Denies discharge from eye(s), rhinorrhea or sore throat Cardiovascular Cardiovascular: Reports chest pain; Denies palpitations Respiratory/Chest Respiratory/Chest: Denies cough or dyspnea Gastrointestinal Gastrointestinal: Denies abdominal pain, nausea or vomiting Genitourinary Genitourinary ED: Denies dysuria Musculoskeletal Musculoskeletal: Reports neck pain; Denies back pain or extremity pain Integumentary Denies Abrasions or rash Neurologic Neurologic: Reports weakness; Denies headache(s) Allergic/Immunologic Allergic/Immunologic ED: Denies lip swelling or urticaria EXAM Physical Exam Const Vital Signs: 01/11/24 17:36 01/11/24 17:35 01/11/24 19:35 Temperature 96.5 F L Temperature Source Temporal Pulse Rate 72 65 Respiratory Rate 14 17 Respiratory Effort Normal Non-Labored Respiratory Depth Normal Respiratory Pattern Normal Blood Pressure 81/66 L 100/75 Blood Pressure Mean 71 83 Pulse Ox 95 96 Oxygen Delivery Method Room Air Room Air Room Air Positive well nourished and well developed General Appearance ED: well developed HEENT Reports moist mucous membranes Eyes EOMs intact bilaterally Neck Neck Narrative: No C-spine tenderness. Chest Wall inspection of chest normal and palpation of chest normal Resp normal respiratory effort and clear to auscultation bilaterally Cardio regular rate and regular rhythm GI non-tender Palpation: soft Extremity Extremity Narrative: 2 cm skin tear to the left forearm. Full range of motion of the extremity without difficulty Neuro oriented x3 and no sensory deficits noted Motor Exam: strength 5/5 throughout Psych mental status grossly normal Skin Skin Narrative: Skin tear to left forearm as noted above. MDM MDM MDM Narrative Medical decision making narrative: Patient was noted be hypotensive in triage with a pressure of 81/66. As I enter the room he is being placed on running specialist and his systolic pressure is currently 110. IV line established. Patient given a liter of IV fluids. Labwork obtained to evaluate for leukocytosis, anemia, and electrolyte derangement. CT scan of the head will be obtained to evaluate for any acute intracranial injury, edema, fracture. 2 view chest x-ray obtained given his blunt chest trauma to evaluate for rib fracture, pneumothorax. History & Record Review Discussion w/independent historian: Patient Additional record(s) reviewed:: Prior ED visit and Prior labs Lab Data Labs: Laboratory Results - last 24 hr 01/11/24 18:27 WBC 7.5 RBC 4.19 L Hgb 13.0 Hct 40.0 MCV 95.5 H MCH 31.0 MCHC 32.5 RDW Std Deviation 47.5 H RDW Coeff of Wenceslao 13.7 Plt Count 254 MPV 9.4 Immature Gran % (Auto) 0.300 Neut % (Auto) 81.3 H Lymph % (Auto) 9.0 L [place] % (Auto) 8.1 Eos % (Auto) 0.9 Baso % (Auto) 0.4 Absolute Neuts (auto) 6.1 Absolute Lymphs (auto) 0.68 L Nucleated RBC % 0 Sodium 137 Potassium 4.6 Chloride 106 Carbon Dioxide 24.0 Anion Gap 7 BUN 21 H Creatinine 1.54 H Estim Creat Clear Calc 61.32 Est GFR (MDRD) Af Amer 59 L Est GFR (MDRD) Non-Af 49 L BUN/Creatinine Ratio 13.6 Glucose 99 Calcium 8.9 Radiography Diagnostic Testing: Clinical Impression(s) from Imaging Studies Brain CT 01/11/24 18:08 IMPRESSION: Negative head/brain CT without intravenous contrast. Electronically Signed: Cyrus Vazquez MD at 19:12 EDT , Chest X-Ray 01/11/24 18:43 IMPRESSION: No radiographic evidence of acute cardiopulmonary disease. Electronically Signed: Cyrus Vazquez MD at 19:19 EDT , Treatment and Re-Evaluation :: CBC was normal white count 7.5 with a hemoglobin of 13.0. Chemistry studies reveal a BUN of 21 and a creatinine of 1.54. In September his creatinine was 1.12. In November it was up to 1.41 and now up to 1.54. Glucose is 99. CT scan of the head reveals no acute findings. 2 view chest x-ray per my interpretation reveals chronic changes with no evidence of fracture. Radiology interpretation reviewed and agrees. On repeat evaluation patient's systolic blood pressure still ranging 100-110, however he has been holding his arm bent and has only gotten about 200 cc of his 1 L fluid bolus. He will be discharged following completion of his IV fluids. He states he does check his blood pressure at home and it is been running in the 130s over 90s recently. He was encouraged to monitor this closely as well as increase p.o. fluids and have his renal function rechecked. He voices understanding and agreement. Discharge Plan Triage Chief Complaint: Head Injury ED Provider: Yolie Skinner Dx/Rx/DC Orders Clinical Impression: Closed head injury, Chest wall contusion, Hypotension, Fall Instructions: ED Chest Wall Contusion, ED Head Injury (Adult), ED Low Blood Pressure, All Causes Prescriptions: No Action nitroglycerin 0.4 mg tablet, sublingual 0.4 mg SUBLINGUAL Q5-15M PRN (Reason: Chest Pain) Rx Instructions: do not exceed 3 doses per episode oxcarbazepine 150 mg tablet 150 mg PO BID Qty: 60 3RF bupropion HCl [Wellbutrin SR] 150 mg tablet sustained-release 12 hr 150 mg PO QHS oxcarbazepine 300 mg tablet 300 mg PO BID Eliquis DVT-PE Treat 30D Start 5 mg (74 tabs) tablets,dose pack 5 mg PO BID albuterol sulfate 1 PUFF inhaler 1 - 2 puff INHALATION Q4H PRN PRN (Reason: Sob &/Or Wheezing) escitalopram oxalate 10 MG tablet 10 mg PO DAILY isosorbide mononitrate 30 mg tablet extended release 24 hr 30 mg PO BID Qty: 180 3RF lisinopril 10 mg tablet See Rx Instructions .ROUTE .COMPLEX Qty: 30 6RF Dose Instruction: TAKE 1 TABLET BY MOUTH ONCE DAILY Rx Instructions: TAKE 1 TABLET BY MOUTH ONCE DAILY carvedilol 3.125 mg tablet 3.125 mg PO BID Qty: 60 6RF Primary Care Provider: Eduin Watts Referrals: Eduin Watts MD [Primary Care Provider] - 1 Week Disposition Disposition: Home, Self Care
[2024-01-11 18:36] LABS: Absolute Lymphocyte Count 0.68 X10^3/uL (0.83-4.51); Absolute Neutrophil Count 6.1 X10^3/uL (2.0-7.7); Basophil# 0.03 X10^3/uL; Basophil% 0.4 % (0-1); Eosinophil# 0.07 X10^3/uL; Eosinophils% 0.9 % (0-5); Lymphocyte # 0.68 X10^3/ul (0.83-4.51); Mean Corp Hgb Conc 32.5 g/dL (32-36); Mean Corpuscular Volume 95.5 fL (80-94); Mean Platelet Vol. 9.4 fl (6.2-12.0); Monocyte# 0.61 X10^3/uL; Monocyte% 8.1 % (0-10); NRBC Flagged by Analyzer 0 % (0-5); Neutrophil # 6.13 X10^3/uL (2.7-7.7); Neutrophil % 81.3 % (47-70); Platelet Count 254 K/mm3 (150-450); RBC Distribution Width CV 13.7 % (11.6-14.6); RBC Distribution Width SD 47.5 fl (35.1-43.9); Red Blood Count 4.19 M/mm3 (4.6-6.2); White Blood Count 7.5 K/mm3 (4.4-11.0)
--- NOTE | 2024-01-11 18:43 | RAD_ITS ---
EXAM: XR CHEST, 2 VIEWS CLINICAL INDICATION: chest wall injury TECHNIQUE: Frontal and lateral views of the chest. COMPARISON: No relevant prior studies available. FINDINGS: LUNGS AND PLEURAL SPACES: Unremarkable. No consolidation or edema. No pneumothorax. No effusion. HEART: Unremarkable. Cardiac silhouette not enlarged. MEDIASTINUM: Central airways and mediastinal contour are unremarkable. BONES/JOINTS: Unremarkable. No acute fracture. SOFT TISSUES: Unremarkable. RAD/Chest PA and Lateral IMPRESSION: No radiographic evidence of acute cardiopulmonary disease. Electronically Signed: Cyrus Vazquez MD at 19:19 EDT ,
[2024-01-11 18:51] LABS: Anion Gap 7 (5-15); BUN 21 mg/dL (7-18); BUN/Creat Ratio 13.6 RATIO (10-20); Calcium,Total 8.9 mg/dL (8.5-10.1); Chloride 106 mmol/L (98-107); Creatinine, Serum 1.54 mg/dL (0.70-1.30); EST Glomerular Filtration Rate 49 mL/min (>60); Est Glom Filt Rate - Afr Amer 59 mL/min (>60); Estimated Creatinine Clearance 61.32 ml/min; Glucose 99 mg/dL (74-106); Potassium 4.6 mmol/L (3.5-5.1); Sodium Level 137 mmol/L (136-145)
[2024-01-11] MEDS: 0.9% Normal Saline (1000mL) 1,000 ML 1000 ML IV (19:10)
[2024-01-11 19:35] VITALS: BP 100/75; PULSE 65; RESP 17; O2SAT 96
[2024-01-11 20:38] VITALS: BP 103/74; PULSE 60; RESP 17; TEMP 36.3; O2SAT 97
== END 2024-01-11 20:56 | disposition home or self-care (01) ==
PROVIDERS: Emergency Provider Emergency Medicine; PCP Family Medicine; Visit Provider Emergency Medicine
DX: S09.90XA Unspecified injury of head, initial encounter (principal); J44.9 Chronic obstructive pulmonary disease, unspecified; E11.9 Type 2 diabetes mellitus without complications; S20.20XA Contusion of thorax, unspecified, initial encounter; I95.9 Hypotension, unspecified; W19.XXXA Unspecified fall, initial encounter; Z86.718 Personal history of other venous thrombosis and embolism
CPT/HCPCS: 70450; 71046; 80048; 85025; 96360; 96361; 99284; J7030; A4216

== ENCOUNTER → 2024-03-14 | Outpatient (CLI) | payer MEDICARE, MEDICAID, SELFPAY ==
[2024-03-14 15:07] LABS: Absolute Lymphocyte Count 0.85 X10^3/uL (0.83-4.51); Absolute Neutrophil Count 4.4 X10^3/uL (2.0-7.7); Basophil# 0.05 X10^3/uL; Basophil% 0.8 % (0-1); Eosinophil# 0.11 X10^3/uL; Eosinophils% 1.8 % (0-5); Hematocrit 43.3 % (40-54); Lymphocyte # 0.85 X10^3/ul (0.83-4.51); Mean Corp Hgb Conc 32.3 g/dL (32-36); Mean Platelet Vol. 10.8 fl (6.2-12.0); Monocyte# 0.69 X10^3/uL; Monocyte% 11.3 % (0-10); NRBC Flagged by Analyzer 0 % (0-5); Neutrophil # 4.36 X10^3/uL (2.7-7.7); Neutrophil % 71.8 % (47-70); Platelet Count 263 K/mm3 (150-450); RBC Distribution Width CV 13.1 % (11.6-14.6); Red Blood Count 4.51 M/mm3 (4.6-6.2); White Blood Count 6.1 K/mm3 (4.4-11.0)
[2024-03-14 15:28] LABS: Hemoglobin A1c 5.1 % (3.8-5.6)
[2024-03-14 15:39] LABS: Anion Gap 6 (5-15); BUN 26 mg/dL (7-18); BUN/Creat Ratio 15.8 RATIO (10-20); Calcium,Total 9.4 mg/dL (8.5-10.1); Chloride 105 mmol/L (98-107); Creatinine, Serum 1.65 mg/dL (0.70-1.30); EST Glomerular Filtration Rate 45 mL/min (>60); Est Glom Filt Rate - Afr Amer 54 mL/min (>60); Free T3 1.9 pg/mL (2.18-3.98); Glucose 96 mg/dL (74-106); Potassium 4.4 mmol/L (3.5-5.1); Sodium Level 137 mmol/L (136-145); T4 Free Direct 0.79 ng/dL (0.76-1.46)
== END | disposition home or self-care (01) ==
LOC: MFPLAB 14:01
PROVIDERS: PCP Family Medicine; Visit Provider Family Medicine
DX: R53.83 Other fatigue (principal); E11.9 Type 2 diabetes mellitus without complications; E03.9 Hypothyroidism, unspecified
CPT/HCPCS: 36415; 80048; 83036; 84403; 84439; 84443; 84481; 85025

== ENCOUNTER → 2024-05-02 | Outpatient (CLI) | payer MEDICARE, SELFPAY ==
--- NOTE | 2024-05-02 13:50 | CT_ITS ---
STUDY: CTA CHEST REASON FOR EXAM: Male, 64 years old. Dilated Aortic Root RADIATION DOSAGE (If Supplied By Facility): CTDIvol = ( 17.43 ) mGy, DLP = ( 616.47 ) mGycm TECHNIQUE: The examination was performed with the intravenous administration of IV 100mL [id number]-[id number]. Post-processing of the angiographic images was performed, with multiplanar reformation and 3D reconstruction. Individualized dose optimization techniques were used for this CT. COMPARISON: Comparison is made with prior study dated May 05, 2023. FINDINGS: Normal enhancement of the main pulmonary artery and right and left pulmonary arteries. Normal enhancement of the bilateral peripheral pulmonary arteries. There is no demonstrated pulmonary embolism. There is aneurysmal dilatation of the ascending aorta. The transverse diameter of the ascending aorta measures 42.5 mm''s. There is no demonstrated aortic dissection. Normal heart and pericardium. Normal mediastinum. Normal hilar regions. Normal visualized trachea and bronchi. The lungs are well expanded. Normal pulmonary parenchyma. Normal pleura. Normal chest wall structures. There are degenerative changes of thoracic spine. Increased kyphosis. Small hiatal hernia. Surgical clips are seen at the gastroesophageal junction. Embolization particles are seen in the splenic artery. CT/CTA Chest W/WO Contrast IMPRESSION: Dilated aortic root measuring 42.5 mm. It previously measured 40 mm. Electronically Signed: Carlos Shepherd MD at 12:47 EDT ,
[2024-05-02 14:15] LABS: CREATININE FINGERSTICK < 1.0 mg/dL (0.70-1.30); EGFR FINGERSTICK > 60.0000 mL/min (>60)
== END | disposition home or self-care (01) ==
LOC: CT 13:50
PROVIDERS: PCP Family Medicine; Referring Provider Nurse Practitioner Gerontology; Visit Provider Nurse Practitioner Gerontology
DX: I77.810 Thoracic aortic ectasia (principal)
CPT/HCPCS: 71275; Q9967

== ENCOUNTER 2024-06-08 12:25 | Emergency (ER) | payer MEDICARE, SELFPAY ==
[2024-06-08 12:25] VITALS: BP 136/108; PULSE 71; RESP 22; TEMP 35.8; O2SAT 97; BMI 36.7
[2024-06-08 12:41] VITALS: O2SAT 97
--- NOTE | 2024-06-08 12:41 | EKG12_ITS ---
Test Reason : CP/WEAKNESS Blood Pressure : / mmHG Vent. Rate : 064 BPM Atrial Rate : 064 BPM P-R Int : 220 ms QRS Dur : 092 ms QT Int : 440 ms P-R-T Axes : 045 -50 051 degrees QTc Int : 453 ms Sinus rhythm with 1st degree A-V block Left anterior fascicular block Minimal voltage criteria for LVH, may be normal variant ( R in aVL ) Nonspecific ST abnormality Abnormal ECG Confirmed by Nimesh Lopez ([id number]), editorial assistant DARION FLORES ([id number]) on 06/10/2024 11:00:27 AM Referred By: Confirmed By:Nimesh Lopez
--- NOTE | 2024-06-08 12:41 | CT_ITS ---
INDICATION: head trauma on thinner EXAMINATION: CT BRAIN - CT Head or Brain W/O Contrast Injection TECHNIQUE: Multiple axial images were obtained of the head without intravenous contrast. The protocol utilizes one or more of the following dose reduction techniques: automated exposure control, adjustment of mA and/or kV according to patient size,and/or use of iterative reconstruction technique. IV Contrast dosage and agent: None. RADIATION DOSAGE (If Supplied By Facility): CTDIvol = ( 44.99 ) mGy, DLP = ( 812.98 ) mGycm COMPARISON: January 11, 2024 FINDINGS: BRAIN PARENCHYMA: No intra- or extra-axial hemorrhage. No evidence of acute infarct. No intracranial mass or mass effect. There is preservation of the osorio/white matter interface. Posterior fossa structures are unremarkable. CSF SPACES: Appropriate for age. No hydrocephalus. Basal cisterns are patent. CALVARIUM, SKULL BASE, PARANASAL SINUSES AND MASTOID AIR CELLS: Clear. No discrete lytic or blastic abnormalities. ORBITS: Both globes, extraocular muscles, optic nerves and retrobulbar fat appear unremarkable. ASPECTS Score for Acute Strokes: 10 CT/Brain/Head without Contrast IMPRESSION: No acute intracranial process. Electronically Signed: Mariana Amos MD at 14:29 EDT ,
--- NOTE | 2024-06-08 12:58 | EX.ED.DYSGE1 ---
HPI History of Present Illness Chief Complaint: Weakness Informant: patient Onset/Context/Timing Maximum Severity: Mild Narrative Narrative: 64-year-old male past medical history of hypertension, COPD, diabetes, DVT, CT no stents, stroke and known thoracic aortic aneurysm. He is on Eliquis. He says a week ago he was on a ladder doing drywall fell about 4 to 40 feet to the linoleum floor struck his head. He was not seen at that time. He said since has been tired and just breaking out in a sweat with no reason. Denies chest pain. Denies fever. Denies dysuria. Today said he felt so weak he felt he might pass out. He denies any vomiting or melena. Prior similar symptoms: No Recent Illness/Hospitalization: No PFSH PFS Medical History JOVEL (dyspnea on exertion) Hyperlipidemia Essential (primary) hypertension History of colon cancer Arthritis AA (alcohol abuse) Morbid obesity COPD (chronic obstructive pulmonary disease) History of suicide attempt History of DVT (deep vein thrombosis) Migraine headache Seizure disorder Neuropathy H/O: substance abuse History of ETOH abuse Necrotizing soft tissue infection Abscess of right leg Dog bite of right calf Post traumatic stress disorder (PTSD) Bronchial asthma Personal hx-rectal/anal malignancy Esophageal reflux Epilepsy undetermined as to focal or generalized, intractable DM type 2 (diabetes mellitus, type 2) Chronic pain syndrome Home Medications ?Medication ?Instructions ?Recorded ?Last Taken ?Type albuterol sulfate 90 mcg/actuation 1 - 2 puff inhalation Q4H PRN PRN 04/02/19 04/02/19 History aerosol inhaler Sob &/Or Wheezing nitroglycerin 0.4 mg sublingual 0.4 mg sublingual Q5-15M PRN Chest 09/28/20 Unknown History tablet Pain oxcarbazepine 150 mg tablet 150 mg PO BID #60 tabs 09/29/20 Unknown Rx oxcarbazepine 300 mg tablet 300 mg PO BID 05/05/21 Unknown History apixaban 5 mg (74 tabs) tablets in 5 mg PO BID 11/07/22 Unknown History a dose pack (Eliquis DVT-PE Treat 30D Start) bupropion HCl 150 mg tablet,12 hr 150 mg PO QHS 10/06/23 Unknown History sustained-release (Wellbutrin SR) carvedilol 3.125 mg tablet 3.125 mg PO BID #60 TABLETS 12/13/23 Unknown Rx atorvastatin 40 mg tablet 40 mg PO DAILY 03/25/24 Unknown History escitalopram oxalate 10 mg tablet 20 mg PO DAILY 03/25/24 Unknown History furosemide 40 mg tablet 40 mg PO .Q3Days 03/25/24 Unknown History levothyroxine 50 mcg capsule 50 mcg PO DAILY 03/25/24 Unknown History loperamide 2 mg capsule 2 mg PO Q6H PRN 03/25/24 Unknown History meloxicam 15 mg tablet 15 mg PO DAILY 03/25/24 Unknown History isosorbide mononitrate 30 mg 30 mg PO BID #180 TABLETS 05/03/24 Unknown Rx tablet,extended release 24 hr lisinopril 10 mg tablet 5 mg (1/2 x 10 mg) PO DAILY #45 06/04/24 Unknown Rx tabs Allergy/AdvReac Type Severity Reaction Status Date / Time meperidine HCl (From Demerol) Allergy Unknown Verified 06/08/24 12:28 Milk Containing Products Allergy Anaphylaxis Verified 06/08/24 12:28 (Dairy) (Milk Containing Products) penicillin G Allergy Hives Verified 06/08/24 12:28 wheat Allergy Other Verified 06/08/24 12:28 potassium AdvReac Other Verified 06/08/24 12:28 Surgical History History of left heart catheterization (03/1997) History of cervical spinal surgery History of bariatric surgery (2000) Social History Smoking Status: Never smoker Electronic Cigarette Use: not used alcohol intake: former year quit: 1999 substance use type: former substance user Date of last use: 20 years, Fentynal 4 years, crack/cocaine, heroin, painkillers and other details: LSD ROS ROS ED ROS Narrative Generalized weakness. Sweating. Constitutional Constitutional ED: Denies chills or fever(s) Eyes Eyes: Denies blurry vision ENT ENT ED: Denies ear pain Cardiovascular Cardiovascular: Denies chest pain Respiratory/Chest Respiratory/Chest: Denies cough Gastrointestinal Gastrointestinal: Denies abdominal pain, constipation, melena, nausea or vomiting Genitourinary Genitourinary ED: Denies dysuria or hematuria Musculoskeletal Musculoskeletal: Denies arthralgias Integumentary Denies abscess Neurologic Neurologic: Denies headache(s) Endocrine Endocrinology: Denies cold intolerance Hematologic/Lymphatic Hematologic/Lymphatic: Reports none Allergic/Immunologic Allergic/Immunologic ED: Denies mouth swelling, tongue swelling or urticaria EXAM Physical Exam Narrative Exam Narrative: 64-year-old male vital signs stable afebrile. Sitting upright in bed. Son in the room. Vital signs are stable afebrile. Pulse ox 97% on room air no signs hypoxia. He does not look septic or toxic. He is in no distress. H EENT exam pupils round reactive light. No signs of trauma to his face or scalp. Currently does not have a hematoma or laceration. Nontender. Neck nontender. Lungs clear. Heart regular rate about 70 no murmur appreciated. Chest wall and ribs nontender. Back nontender. No bruising. Abdomen soft nontender. Pelvic girdle intact. Moving all 4 extremities. 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 Normal dorsi plantarflexion. He is awake and alert. Answering questions following commands. GCS of 15. Const Vital Signs: 06/08/24 12:25 06/08/24 12:41 06/08/24 13:40 Temperature 96.5 F L Temperature Source Temporal Pulse Rate 71 Respiratory Rate 22 H Respiratory Effort Normal Respiratory Pattern Normal Blood Pressure 136/108 H Blood Pressure Mean 117 Pulse Ox 97 97 Oxygen Delivery Method Room Air Room Air Positive well nourished and well developed; Negative for cachectic, contractures or unkempt General Appearance ED: well developed and NAD; Negative for unkempt, cachectic, contractures, cyanotic, diaphoretic or pallor Nutritional Appearance: Negative for cachectic HEENT Reports moist mucous membranes Negative for trauma or tenderness Eyes PERRL and EOMs intact bilaterally General Eye ED: Negative for pale conjunctiva Neck no lymphadenopathy, supple and no JVD General: Negative for tenderness Lymph Lymphatic: Negative for other Chest Wall inspection of chest normal and palpation of chest normal Chest: Negative for other Resp normal respiratory effort and clear to auscultation bilaterally Effort and Inspection: Negative for retractions Auscultation: Negative for rales, rhonchi, wheezes or diminished lung sounds Cardio regular rate, regular rhythm, S1 normal heart sound, S2 normal heart sound and no murmurs Palpation: Negative for palpable S3 or palpable S4 Rate: Negative for bradycardia or tachycardic Rhythm: Negative for abnormal rhythm GI normal to inspection, nondistended, normoactive bowel sounds, non-tender, non-distended and no masses Inspection: Negative for abdominal distention Palpation: soft; Negative for tender, guarding or rebound tenderness present Back/Spine no CVA tenderness General Back: Negative for CVA tenderness Cervical Spine: Negative for cervical spine tenderness Thoracic Spine / Upper Back: Negative for thoracic spinal tenderness or paraspinal muscle tenderness Lumbar Spine / Lower Back: Negative for lumbar spinal tenderness Extremity normal to inspection General Extremety ED: Negative for edema or tenderness General Extremity: Negative for edema Neuro oriented x3 and CN's II-XII intact bilaterally Sensorium / Orientation: alert; Negative for orientation impaired, lethargic or stuporous Motor Exam: strength 5/5 throughout Psych mental status grossly normal Appearance: Negative for unkempt Attitude: No agitated Mood & Affect: Negative for depressed, anxious or tearful Skin no rashes or lesions noted and no wounds General Skin Exam: Negative for jaundice or pallor Lesions: No lesion noted Rashes: No rashes noted Trauma: Negative for abrasion Wounds: Negative for wounds noted MDM MDM MDM Narrative Medical decision making narrative: 64-year-old male fell off a stepladder a week ago about 4+ feet striking his head on [place] CAT scan being obtained. He is also having symptoms of near syncope and diaphoresis who undergo cardiac workup. UA will be obtained also. He is having no urinary symptoms. His exam is benign. There is nothing obvious from his exam. Repeat exam patient is doing well at 2 PM. Exams unchanged. It is benign. We discussed his test results. We are waiting for the official read on his CAT scan of his brain but I have reviewed and do not see any acute bleed. Will be ambulated to see how he does. Patient was ambulated by his nurse and did well walking. Complains some mild dizziness which may be from his recent head injury. Otherwise there is no acute findings when he was ambulating. He had no ataxia. Repeat exam patient is doing well at 2:43 PM. He ambulated on any difficulty. This may be related to his recent head injury and possibly a mild concussion. Otherwise there is no acute findings. He is comfortable being discharged home with outpatient follow-up. History & Record Review Discussion w/independent historian: Patient and Family Additional record(s) reviewed:: Prior inpatient record, Prior outpatient record, Prior ED visit and Prior labs Lab Data Attestation: I reviewed the patient's lab results. Lab results narrative: CBC showed a normal white count of 4 H&H 13 and 41. Platelets 234. Electrolytes showed sodium 141. Gap 5. Normal BUN and creatinine of 18 and 1.1. Glucose 100. Troponin 6. Chest x-ray unremarkable. Labs: Laboratory Results - last 24 hr 06/08/24 13:00 WBC 4.5 RBC 4.26 L Hgb 13.4 Hct 41.2 MCV 96.7 H MCH 31.5 MCHC 32.5 RDW Std Deviation 49.4 H RDW Coeff of Wenceslao 14.0 Plt Count 234 MPV 9.9 Immature Gran % (Auto) 0.200 Neut % (Auto) 68.7 Lymph % (Auto) 15.0 L [place] % (Auto) 11.7 H Eos % (Auto) 3.5 Baso % (Auto) 0.9 Absolute Neuts (auto) 3.1 Absolute Lymphs (auto) 0.68 L Nucleated RBC % 0 Sodium 141 Potassium 4.2 Chloride 110 H Carbon Dioxide 26.0 Anion Gap 5 BUN 18 Creatinine 1.13 Estim Creat Clear Calc 80.72 Est GFR (MDRD) Af Amer 84 Est GFR (MDRD) Non-Af 69 BUN/Creatinine Ratio 15.9 Glucose 100 Calcium 9.1 Troponin I High Sens 6 Radiography Chest X-Ray - ED: 2 View, Read by ED Physician, Normal, Heart, Lungs, Mediastinum, Bony Structures, No Acute Disease and Chronic Changes Diagnostic Testing: Chest x-ray, 2 views, AP and lateral, interpreted myself shows no acute abnormality. Normal cardiac silhouette. Normal lung patel. No pneumonia or effusions. Rhythm Strip Rhythm Strip: Sinus Rhythm Rate: 64 Ectopy: None EKG Initial EKG: Attestation: I personally reviewed and interpreted this EKG as follows: Interpretation: No Acute Injury Pattern Comments: Normal sinus rhythm rate of 64 first-degree AV block WA interval of 220. No acute signs of CT or ischemia. No dysrhythmia. Discharge Plan Triage Chief Complaint: Weakness ED Provider: Veto Da Silva Dx/Rx/DC Orders Clinical Impression: Head injury, History of diabetes mellitus, Chronic anticoagulation Instructions: ED Weakness (Uncertain Cause) Prescriptions: No Action nitroglycerin 0.4 mg tablet, sublingual 0.4 mg SUBLINGUAL Q5-15M PRN (Reason: Chest Pain) Rx Instructions: do not exceed 3 doses per episode oxcarbazepine 150 mg tablet 150 mg PO BID Qty: 60 3RF bupropion HCl [Wellbutrin SR] 150 mg tablet sustained-release 12 hr 150 mg PO QHS oxcarbazepine 300 mg tablet 300 mg PO BID Eliquis DVT-PE Treat 30D Start 5 mg (74 tabs) tablets,dose pack 5 mg PO BID atorvastatin 40 mg tablet 40 mg PO DAILY levothyroxine 50 mcg capsule 50 mcg PO DAILY meloxicam 15 mg tablet 15 mg PO DAILY loperamide 2 mg capsule 2 mg PO Q6H PRN furosemide 40 mg tablet 40 mg PO .Q3Days albuterol sulfate 1 PUFF inhaler 1 - 2 puff INHALATION Q4H PRN PRN (Reason: Sob &/Or Wheezing) escitalopram oxalate 10 mg tablet 20 mg PO DAILY carvedilol 3.125 mg tablet 3.125 mg PO BID Qty: 60 6RF isosorbide mononitrate 30 mg tablet extended release 24 hr 30 mg PO BID Qty: 180 3RF lisinopril 10 mg tablet 5 mg PO DAILY Qty: 45 3RF Primary Care Provider: Eduin Watts Referrals: Eduin Watts MD [Primary Care Provider] - 3-5 Days if not improving Activity Restrictions/Additional Instructions: Follow-up with your doctor if not feeling better. Your lab work today chest x-ray, CAT scan of your head were all unremarkable. Print Language: Icelandic Disposition Disposition: Home, Self Care
[2024-06-08 13:10] LABS: Absolute Lymphocyte Count 0.68 X10^3/uL (0.83-4.51); Absolute Neutrophil Count 3.1 X10^3/uL (2.0-7.7); Basophil# 0.04 X10^3/uL; Basophil% 0.9 % (0-1); Eosinophil# 0.16 X10^3/uL; Eosinophils% 3.5 % (0-5); Hematocrit 41.2 % (40-54); Hemoglobin 13.4 g/dL (13.0-16.5); Lymphocyte # 0.68 X10^3/ul (0.83-4.51); Mean Corp Hgb Conc 32.5 g/dL (32-36); Mean Corpuscular Hgb 31.5 pg (27.0-32.0); Mean Corpuscular Volume 96.7 fL (80-94); Mean Platelet Vol. 9.9 fl (6.2-12.0); Monocyte# 0.53 X10^3/uL; Monocyte% 11.7 % (0-10); NRBC Flagged by Analyzer 0 % (0-5); Neutrophil % 68.7 % (47-70); Platelet Count 234 K/mm3 (150-450); RBC Distribution Width SD 49.4 fl (35.1-43.9); Red Blood Count 4.26 M/mm3 (4.6-6.2); White Blood Count 4.5 K/mm3 (4.4-11.0)
[2024-06-08 13:26] LABS: Anion Gap 5 (5-15); BUN 18 mg/dL (7-18); BUN/Creat Ratio 15.9 RATIO (10-20); Calcium,Total 9.1 mg/dL (8.5-10.1); Chloride 110 mmol/L (98-107); Creatinine, Serum 1.13 mg/dL (0.70-1.30); EST Glomerular Filtration Rate 69 mL/min (>60); Est Glom Filt Rate - Afr Amer 84 mL/min (>60); Estimated Creatinine Clearance 80.72 ml/min; Glucose 100 mg/dL (74-106); Potassium 4.2 mmol/L (3.5-5.1); Sodium Level 141 mmol/L (136-145); Troponin-I HS 6 pg/mL (3.0-78.0)
--- NOTE | 2024-06-08 13:40 | RAD_ITS ---
INDICATION: chest pain EXAMINATION/TECHNIQUE: X-RAY - XR Chest 2 Views COMPARISON: January 11, 2024 FINDINGS: LINES/DEVICES: None. LUNGS: No new consolidation, edema or effusion. There is a grossly stable curvilinear opacity within the left lower lung suggestive of atelectasis and/or scarring. No pneumothorax. MEDIASTINUM AND CARDIOVASCULAR STRUCTURES: Cardiac silhouette not enlarged. Central airways and mediastinal contour are unremarkable. BONES AND SOFT TISSUES: Unremarkable. RAD/Chest PA and Lateral IMPRESSION: No radiographic evidence of acute cardiopulmonary disease. Electronically Signed: Mariana Amos MD at 14:30 EDT ,
[2024-06-08 14:03] VITALS: O2SAT 98
[2024-06-08 14:25] VITALS: BP 121/81; PULSE 58; RESP 18; O2SAT 96
[2024-06-08 14:59] VITALS: BP 117/81; PULSE 60; RESP 16; TEMP 36.6; O2SAT 98
== END 2024-06-08 15:06 | disposition home or self-care (01) ==
PROVIDERS: Emergency Provider Emergency Medicine; PCP Family Medicine; Visit Provider Emergency Medicine
DX: S09.90XA Unspecified injury of head, initial encounter (principal); J44.9 Chronic obstructive pulmonary disease, unspecified; E11.40 Type 2 diabetes mellitus with diabetic neuropathy, unspecified; I10 Essential (primary) hypertension; Z79.01 Long term (current) use of anticoagulants; Z86.718 Personal history of other venous thrombosis and embolism; W11.XXXA Fall on and from ladder, initial encounter
CPT/HCPCS: 70450; 71046; 80048; 84484; 85025; 93005; 99284; A4216

== ENCOUNTER → 2024-06-10 | Outpatient (CLI) | payer MEDICARE, SELFPAY ==
[2024-06-10 15:59] LABS: ALB/GLOB Ratio 1.1 RATIO (0.9-2.4); AST(SGOT) 23 U/L (15-37); Alanine Aminotransfer ALT/SGPT 18 U/L (16-61); Albumin, Serum 3.8 g/dL (3.2-5.0); Alkaline Phosphatase 129 U/L (45-117); Anion Gap 8 (5-15); BUN 19 mg/dL (7-18); BUN/Creat Ratio 14.1 RATIO (10-20); Calcium,Total 9.6 mg/dL (8.5-10.1); Chloride 105 mmol/L (98-107); Cholesterol 188 mg/dL (200); Creatinine, Serum 1.35 mg/dL (0.70-1.30); EST Glomerular Filtration Rate 56 mL/min (>60); Est Glom Filt Rate - Afr Amer 68 mL/min (>60); Free T3 2.3 pg/mL (2.18-3.98); Globulin 3.6 g/dL (2.2-4.2); Glucose 100 mg/dL (74-106); High Density Lipoprotein 70 mg/dL; Potassium 4.4 mmol/L (3.5-5.1); Protein, Total 7.4 g/dL (6.4-8.2); Sodium Level 137 mmol/L (136-145); T4 Free Direct 0.79 ng/dL (0.76-1.46); Thyroid Stim Hormone (TSH) 0.945 uIU/mL (0.358-3.740); Triglycerides 65 mg/dL; Very Low Density Lipoprotein 13 mg/dL (5-40)
== END | disposition home or self-care (01) ==
PROVIDERS: PCP Family Medicine; Referring Provider Family Medicine; Visit Provider Family Medicine
DX: E03.9 Hypothyroidism, unspecified (principal); E78.5 Hyperlipidemia, unspecified
CPT/HCPCS: 36415; 80053; 80061; 84439; 84443; 84481

== ENCOUNTER → 2024-08-19 | Outpatient (CLI) | payer MEDICARE, SELFPAY ==
--- NOTE | 2024-08-19 16:25 | RAD_ITS ---
STUDY: X-RAY - PELVIS AND RIGHT HIP REASON FOR EXAM: Male, 64 years old. Right-sided pain. TECHNIQUE: 3 views of the pelvis and hip. COMPARISON: Comparison is made with prior study dated July 31, 2020. FINDINGS: There is a non-specific bowel gas pattern. Sutures are seen in the right lower quadrant. Normal bilateral iliac wings, sacroiliac joints and visualized sacrum. Normal bilateral superior and inferior pubic rami. There are degenerative changes of the pubic symphysis with articular narrowing and sclerosis. Normal bilateral ischial tuberosities. Normal visualized femoral head. Normal acetabulum. There is moderate articular joint space narrowing of the hip. Mild degree of osteoarthritis of the left hip joint. RAD/HIP, UNI W/ Pelvis 2-3 Views IMPRESSION: Moderate degree of the osteoarthritis of the right hip joint. Electronically Signed: Carlos Shepherd MD at 9:00 EST ,
== END | disposition home or self-care (01) ==
PROVIDERS: PCP Family Medicine; Referring Provider Family Medicine; Visit Provider Family Medicine
DX: M25.551 Pain in right hip (principal)
CPT/HCPCS: 73502

== ENCOUNTER → 2024-10-11 | Outpatient (CLI) | payer MEDICARE, SELFPAY ==
[2024-10-11 18:18] LABS: Anion Gap 6 (5-15); BUN 23 mg/dL (7-18); BUN/Creat Ratio 18.7 RATIO (10-20); Calcium,Total 9.2 mg/dL (8.5-10.1); Chloride 106 mmol/L (98-107); Creatinine, Serum 1.23 mg/dL (0.70-1.30); EST Glomerular Filtration Rate 63 mL/min (>60); Est Glom Filt Rate - Afr Amer 76 mL/min (>60); Free T3 1.8 pg/mL (2.18-3.98); Glucose 89 mg/dL (74-106); Potassium 4.4 mmol/L (3.5-5.1); Sodium Level 135 mmol/L (136-145); T4 Free Direct 0.82 ng/dL (0.76-1.46); Thyroid Stim Hormone (TSH) 0.858 uIU/mL (0.358-3.740)
== END | disposition home or self-care (01) ==
LOC: MFPLAB 15:41
PROVIDERS: PCP Family Medicine; Referring Provider Family Medicine; Visit Provider Family Medicine
DX: E03.9 Hypothyroidism, unspecified (principal); E11.9 Type 2 diabetes mellitus without complications
CPT/HCPCS: 36415; 80048; 82570; 84156; 84439; 84443; 84481

== ENCOUNTER → 2025-02-05 | Outpatient (CLI) | payer MEDICARE, SELFPAY ==
[2025-02-06 11:40] LABS: Cholesterol 159 mg/dL (<=200); Free T3 2.3 pg/mL (2.18-3.98); High Density Lipoprotein 56 mg/dL; Low Density Lipoprotein Calc. 85 mg/dL; Thyroid Stim Hormone (TSH) 0.406 uIU/mL (0.300-4.200); Triglycerides 88 mg/dL; Very Low Density Lipoprotein 18 mg/dL (5-40); cholesterol:hdl ratio screen 2.82
[2025-02-06 12:01] LABS: ALB/GLOB Ratio 1.6 RATIO (0.9-2.4); AST(SGOT) 26 U/L (<=37); Alanine Aminotransfer ALT/SGPT 14 U/L (<=46); Albumin, Serum 4.2 g/dL (3.4-4.8); Alkaline Phosphatase 86 U/L (40-129); Anion Gap 12 (5-15); BUN 21 mg/dL (4-19); BUN/Creat Ratio 19.7 RATIO (10-20); Calcium,Total 8.6 mg/dL (7.6-11.0); Carbon Dioxide 22.4 mmol/L (21.0-32.0); Chloride 102 mmol/L (98-108); Creatinine, Serum 1.05 mg/dL (0.70-1.20); EST Glomerular Filtration Rate 79 (>60); Globulin 2.7 g/dL (2.2-4.2); Glucose 86 mg/dL (70-99); Potassium 4.5 mmol/L (3.3-5.1); Protein, Total 6.9 g/dL (5.9-8.4); Sodium Level 136 mmol/L (133-145); Total Bilirubin 0.29 mg/dL (0.00-1.30)
== END | disposition home or self-care (01) ==
LOC: MFPLAB 14:48
PROVIDERS: PCP Family Medicine; Referring Provider Family Medicine; Visit Provider Family Medicine
DX: E03.9 Hypothyroidism, unspecified (principal); E11.9 Type 2 diabetes mellitus without complications
CPT/HCPCS: 36415; 80053; 80061; 84439; 84443; 84481

== ENCOUNTER → 2025-02-06 | Outpatient (CLI) | payer MEDICARE, SELFPAY ==
[2025-02-06 17:34] LABS: Microalbumin,Random Urine 31.2 mg/L (NO RANGE EST.); Microalbumin:Creatinine Ratio 159.2 mg/g CRE
== END | disposition home or self-care (01) ==
LOC: LABSPEC 13:43
PROVIDERS: PCP Family Medicine; Referring Provider Family Medicine; Visit Provider Family Medicine
DX: E03.9 Hypothyroidism, unspecified (principal); E11.9 Type 2 diabetes mellitus without complications
CPT/HCPCS: 82043; 82570

== ENCOUNTER → 2025-03-24 | Outpatient (CLI) | payer MEDICARE, SELFPAY ==
[2025-03-24 18:07] LABS: Hematocrit 41.5 % (40-54); Hemoglobin 13.6 g/dL (13.0-16.5); Immature Granulocytes Count 0.010 X10^3/uL (0.0-0.0); Mean Corp Hgb Conc 32.8 g/dL (32-36); Mean Corpuscular Volume 95.8 fL (80-94); Mean Platelet Vol. 10.3 fl (6.2-12.0); NRBC Flagged by Analyzer 0 % (0-5); Platelet Count 225 K/mm3 (150-450); RBC Distribution Width CV 13.5 % (11.6-14.6); RBC Distribution Width SD 47.9 fl (35.1-43.9); Red Blood Count 4.33 M/mm3 (4.6-6.2); White Blood Count 4.2 K/mm3 (4.4-11.0)
[2025-03-24 18:56] LABS: Anion Gap 11 (5-15); BUN 19 mg/dL (4-19); BUN/Creat Ratio 18.5 RATIO (10-20); Calcium,Total 9.1 mg/dL (7.6-11.0); Carbon Dioxide 22.5 mmol/L (21.0-32.0); Chloride 105 mmol/L (98-108); Glucose 88 mg/dL (70-99); Potassium 4.5 mmol/L (3.3-5.1)
== END | disposition home or self-care (01) ==
LOC: MFPLAB 14:04
PROVIDERS: PCP Family Medicine; Referring Provider Family Medicine; Visit Provider Family Medicine
DX: R42 Dizziness and giddiness (principal); I10 Essential (primary) hypertension
CPT/HCPCS: 36415; 80048; 84443; 85025

== ENCOUNTER 2025-03-29 17:26 | Observation (INO) | payer MEDICARE, MEDICAID, SELFPAY ==
[2025-03-29] VITALS (8 sets, daily range): BP systolic 85–137; BP diastolic 64–92; PULSE 66–85; RESP 12–19; TEMP 36.4–36.9; O2SAT 94–98; BMI 37.9; BMI 35.9
--- NOTE | 2025-03-29 17:46 | EKG12_ITS ---
Test Reason : REPEAT CP Blood Pressure : */* mmHG Vent. Rate : 71 BPM Atrial Rate : 71 BPM P-R Int : 236 ms QRS Dur : 106 ms QT Int : 434 ms P-R-T Axes : 40 -49 76 degrees QTcB Int : 471 ms Sinus rhythm with 1st degree A-V block Left anterior fascicular block Abnormal ECG Confirmed by SHELBI VILLAGRAN, CRISTINA ([id number]), dictionary editor DARION FLORES ([id number]) on 03/31/2025 11:34:58 AM Referred By: Confirmed By: CRISTINA MARIO MD
--- NOTE | 2025-03-29 17:48 | ED.VIS.CHEST ---
HPI <DELVIN Wolfe - Last Filed: 03/29/25 20:21> History of Present Illness Chief Complaint: Chest Pain Narrative Narrative: 65 old male with PMH of HTN, HLD, DM2, CHF, OR without stents, A-fib, DVT/PE on Eliquis, dilated aortic root presents with chest pain. He was sitting and repairing a ham radio when he suddenly felt cold, clammy, developed chest pressure, shortness of breath, and diaphoresis. He felt lightheaded and moved to the couch to [facility]. Symptoms passed in about 15 minutes. He states he was not exerting himself during this episode but recently after walking up stairs or doing exertion he has had chest pressure and throat tightness. He reports several month history of intermittent low blood pressures so he stopped taking all his blood pressure medications 3 months ago. This week he has felt lightheaded almost daily and often when checking his vitals his blood pressure would be between 70-[address] Watts on March 24 and he ordered an echocardiogram and told him to stop taking meloxicam since he is on Eliquis. He reports compliance with Eliquis. [facility] <DELVIN Wolfe - Last Filed: 03/29/25 20:21> [facility] Medical History (Updated 03/29/25 @ 19:21 by DELVIN Wolfe) DM type 2 (diabetes mellitus, type 2) JOVEL (dyspnea on exertion) Hyperlipidemia Essential (primary) hypertension History of colon cancer Arthritis AA (alcohol abuse) Morbid obesity COPD (chronic obstructive pulmonary disease) History of suicide attempt History of DVT (deep vein thrombosis) Migraine headache Seizure disorder Neuropathy H/O: substance abuse History of ETOH abuse Necrotizing soft tissue infection Abscess of right leg Dog bite of right calf Post traumatic stress disorder (PTSD) Bronchial asthma Personal hx-rectal/anal malignancy Esophageal reflux Epilepsy undetermined as to focal or generalized, intractable Chronic pain syndrome Home Medications ?Medication ?Instructions ?Recorded ?Last Taken ?Type nitroglycerin 0.4 mg sublingual 0.4 mg sublingual Q5-15M PRN Chest 09/28/20 Unknown History tablet Pain oxcarbazepine 150 mg tablet 150 mg PO BID #60 tabs 09/29/20 Unknown Rx oxcarbazepine 300 mg tablet 300 mg PO BID 05/05/21 Unknown History atorvastatin 40 mg tablet 40 mg PO DAILY 03/25/24 Unknown History meloxicam 15 mg tablet 15 mg PO DAILY 03/25/24 Unknown History isosorbide mononitrate 30 mg 30 mg PO BID #180 TABLETS 05/03/24 Unknown Rx tablet,extended release 24 hr lisinopril 10 mg tablet 5 mg (1/2 x 10 mg) PO DAILY #45 06/04/24 Unknown Rx Held on 03/29/25. tabs Instructions: pt not takin carvedilol 3.125 mg tablet 3.125 mg PO BID #180 TABLETS 07/05/24 Unknown Rx apixaban 5 mg tablet (Eliquis) 5 mg PO BID 03/29/25 Unknown History bupropion HCl 300 mg 24 hr tablet, 300 mg PO DAILY 03/29/25 Unknown History extended release escitalopram oxalate 20 mg tablet 20 mg PO DAILY 03/29/25 Unknown History levothyroxine 75 mcg tablet 75 mcg PO DAILY 03/29/25 Unknown History Allergy/AdvReac Type Severity Reaction Status Date / Time meperidine HCl (From Demerol) Allergy Unknown Verified 03/29/25 17:28 Milk Containing Products Allergy Anaphylaxis Verified 03/29/25 17:28 (Dairy) (Milk Containing Products) penicillin G Allergy Hives Verified 03/29/25 17:28 wheat Allergy Other Verified 03/29/25 17:28 potassium AdvReac Other Verified 03/29/25 17:28 Surgical History History of left heart catheterization (03/1997) History of cervical spinal surgery History of bariatric surgery (2000) Social History (Reviewed 02/17/25 @ 13:21 by Carrillo Carreon INFANTRY UNIT LEADER, INFANTRY UNIT LEADER-C) Smoking Status: Never smoker Electronic Cigarette Use: not used alcohol intake: former year quit: 1999 substance use type: former substance user Date of last use: 20 years, Fentynal 4 years, crack/cocaine, heroin, painkillers and other details: LSD ROS <DELVIN Wolfe - Last Filed: 03/29/25 20:21> ROS ED ROS Narrative Constitutional: Negative for fever, chills, malaise. CVS: Positive for chest pain. Respiratory: Positive for shortness of breath. No cough. GI: Negative for abdominal pain, vomiting, diarrhea, constipation, melena, hematochezia. EXAM <DELVIN Wolfe - Last Filed: 03/29/25 20:21> Physical Exam Narrative Exam Narrative: CONST: Patient sitting in no acute distress. EYES: Normal inspection. NECK: Normal inspection. RESP: No respiratory distress, CTAB. CVS: Regular rate and rhythm, no murmur, no gallop. ABD: Soft and nontender, no guarding or rebound, nondistended. SKIN: Color normal, no rash, warm, dry, intact. EXTREMITIES: Normal appearance, no pedal edema. NEURO: Alert and answering questions appropriately. PSYCH: Normal affect. Const Vital Signs: 03/29/25 17:29 03/29/25 17:31 03/29/25 17:50 Temperature 97.8 F Temperature Source Oral Pulse Rate 75 Pulse Rate [Lying] Pulse Rate [Sitting (for 1 minute prior to obtaining)] Pulse Rate [Standing (for 1 minute prior to obtaining)] Respiratory Rate 18 Respiratory Effort Normal Blood Pressure 116/78 Blood Pressure [Lying] Blood Pressure [Sitting (for 1 minute prior to obtaining)] Blood Pressure [Standing (for 1 minute prior to obtaining)] Blood Pressure Mean 90 Blood Pressure Mean [Lying] Blood Pressure Mean [Sitting (for 1 minute prior to obtaining)] Blood Pressure Mean [Standing (for 1 minute prior to obtaining)] Pulse Ox 96 Oxygen Delivery Method Room Air Room Air 03/29/25 18:07 03/29/25 18:27 03/29/25 19:00 Temperature Temperature Source Pulse Rate 66 73 Pulse Rate [Lying] 66 Pulse Rate [Sitting (for 1 minute prior to obtaining)] 76 Pulse Rate [Standing (for 1 minute prior to obtaining)] 85 Respiratory Rate 18 19 H Respiratory Effort Blood Pressure 87/71 L Blood Pressure [Lying] 113/80 Blood Pressure [Sitting (for 1 minute prior to obtaining)] 110/75 Blood Pressure [Standing (for 1 minute prior to obtaining)] 85/73 L Blood Pressure Mean 76 Blood Pressure Mean [Lying] 91 Blood Pressure Mean [Sitting (for 1 minute prior to obtaining)] 86 Blood Pressure Mean [Standing (for 1 minute prior to obtaining)] 77 Pulse Ox 98 96 Oxygen Delivery Method Room Air Room Air 03/29/25 19:04 Temperature Temperature Source Pulse Rate Pulse Rate [Lying] Pulse Rate [Sitting (for 1 minute prior to obtaining)] Pulse Rate [Standing (for 1 minute prior to obtaining)] Respiratory Rate Respiratory Effort Blood Pressure 108/64 Blood Pressure [Lying] Blood Pressure [Sitting (for 1 minute prior to obtaining)] Blood Pressure [Standing (for 1 minute prior to obtaining)] Blood Pressure Mean 78 Blood Pressure Mean [Lying] Blood Pressure Mean [Sitting (for 1 minute prior to obtaining)] Blood Pressure Mean [Standing (for 1 minute prior to obtaining)] Pulse Ox Oxygen Delivery Method <Dr. Spencer Aguilar, DO - Last Filed: 03/29/25 19:34> Physical Exam Const Vital Signs: 03/29/25 17:29 03/29/25 17:31 03/29/25 17:50 Temperature 97.8 F Temperature Source Oral Pulse Rate 75 Pulse Rate [Lying] Pulse Rate [Sitting (for 1 minute prior to obtaining)] Pulse Rate [Standing (for 1 minute prior to obtaining)] Respiratory Rate 18 Respiratory Effort Normal Blood Pressure 116/78 Blood Pressure [Lying] Blood Pressure [Sitting (for 1 minute prior to obtaining)] Blood Pressure [Standing (for 1 minute prior to obtaining)] Blood Pressure Mean 90 Blood Pressure Mean [Lying] Blood Pressure Mean [Sitting (for 1 minute prior to obtaining)] Blood Pressure Mean [Standing (for 1 minute prior to obtaining)] Pulse Ox 96 Oxygen Delivery Method Room Air Room Air 03/29/25 18:07 03/29/25 18:27 03/29/25 19:00 Temperature Temperature Source Pulse Rate 66 73 Pulse Rate [Lying] 66 Pulse Rate [Sitting (for 1 minute prior to obtaining)] 76 Pulse Rate [Standing (for 1 minute prior to obtaining)] 85 Respiratory Rate 18 19 H Respiratory Effort Blood Pressure 87/71 L Blood Pressure [Lying] 113/80 Blood Pressure [Sitting (for 1 minute prior to obtaining)] 110/75 Blood Pressure [Standing (for 1 minute prior to obtaining)] 85/73 L Blood Pressure Mean 76 Blood Pressure Mean [Lying] 91 Blood Pressure Mean [Sitting (for 1 minute prior to obtaining)] 86 Blood Pressure Mean [Standing (for 1 minute prior to obtaining)] 77 Pulse Ox 98 96 Oxygen Delivery Method Room Air Room Air 03/29/25 19:04 Temperature Temperature Source Pulse Rate Pulse Rate [Lying] Pulse Rate [Sitting (for 1 minute prior to obtaining)] Pulse Rate [Standing (for 1 minute prior to obtaining)] Respiratory Rate Respiratory Effort Blood Pressure 108/64 Blood Pressure [Lying] Blood Pressure [Sitting (for 1 minute prior to obtaining)] Blood Pressure [Standing (for 1 minute prior to obtaining)] Blood Pressure Mean 78 Blood Pressure Mean [Lying] Blood Pressure Mean [Sitting (for 1 minute prior to obtaining)] Blood Pressure Mean [Standing (for 1 minute prior to obtaining)] Pulse Ox Oxygen Delivery Method <DELVIN Wolfe - Last Filed: 03/29/25 20:21> Heart Score History: Highly Suspicious ECG: Normal Age: >/= 65 years Risk Factors: >/= 3 Risk Factors or History of CAD Score: 6 <Dr. Spencer Aguilar DO - Last Filed: 03/29/25 19:34> Heart Score Score: 6 MDM <DELVIN Wolfe - Last Filed: 03/29/25 20:21> MDM MDM Narrative Medical decision making narrative: Differential: ACS, pneumonia, GERD 65-year-old male with cardiac history, DVT/PE on Eliquis presents with an episode of chest pressure, shortness of breath, lightheadedness and diaphoresis that occurred at rest. He is also had recent similar symptoms with exertion. He appears well and nontoxic. Vitals are stable. Cardiopulmonary exam normal. Abdomen soft and nontender. He is moving all extremities and neurovascularly intact. His symptoms have completely resolved prior to arrival. EKG is nonischemic troponin is 19, delta ordered. CBC and BMP overall unremarkable. Creatinine of 1.58 is higher than previous however he has been this high in the past. Chest x-ray negative. Since he is compliant with anticoagulation I did not pursue a PE workup. His orthostatic vital signs are positive and he was given IV fluids. His heart score is 6 and his symptoms are very concerning that it could be unstable angina. It has been 2 years since a stress test and he believes it has been over a decade since he had a cardiac catheterization so I think he needs admitted for cardiac workup. I discussed the case with the hospitalist for admission. External records reviewed: Stress test on 11/14/2022 Normal pharmacologic myocardial perfusion stress test, EF 49%. I have personally performed a face to face assessment of the patient and have reviewed the CRISELDA Note. I performed a substantive portion of the visit including all aspects of the following. My magdaleno findings include: History is [patient presents to the emergency department with complaint of chest discomfort. He was at rest today when he developed lightheadedness and diaphoresis and chest pressure. States with activity over the last 2 weeks he gets short of breath and diaphoretic and gets pressure in his throat and across his chest and shoulders. Patient states that he has history of 2 heart attacks but no stents. Patient's last heart catheterization was about 2003. Patient has history of diabetes as well as hypertension and high cholesterol.] Patient saw his primary care physician last week and was ordered a cardiac echocardiogram which has not been done yet. Patient states that often times when he checks his blood pressure when he has the symptoms his systolic sometimes is in the 60s to 70s. He was taken off his blood pressure medications. Exam is [HEENT-PERRLA, EOMI. Cranial nerves II through XII grossly intact. TMs clear. Mucous membranes moist. No adenopathy. Cardiovascular-regular rate and rhythm without murmur or ectopy Lungs-clear to auscultation, chest wall stable without crepitus or subcu emphysema Abdomen-normoactive bowel sounds, soft, nontender, no rebound or rigidity, no peritoneal signs. Extremities-intact ?4, normal range of motion, normal pulses, atraumatic] Medical Decison Making [EKG showed a sinus rhythm with rate of 65 bpm with a first-degree AV block and occasional PVC. Will obtain labs including troponin.] Other additions or changes: [None] History & Record Review Discussion w/independent historian: Patient Additional record(s) reviewed:: Prior outpatient record, Prior ED visit and Prior labs Lab Data Attestation: I reviewed the patient's lab results. Labs: Laboratory Results - last 24 hr 03/29/25 17:38 WBC 6.8 RBC 4.55 L Hgb 14.4 Hct 43.4 MCV 95.4 H MCH 31.6 MCHC 33.2 RDW Std Deviation 47.0 H RDW Coeff of Wenceslao 13.4 Plt Count 238 MPV 9.6 Immature Gran % (Auto) 0.300 Neut % (Auto) 77.2 H Lymph % (Auto) 11.7 L Pine % (Auto) 8.9 Eos % (Auto) 1.2 Baso % (Auto) 0.7 Absolute Neuts (auto) 5.3 Absolute Lymphs (auto) 0.80 L Nucleated RBC % 0 Sodium 137 Potassium 4.8 Chloride 102 Carbon Dioxide 21.7 Anion Gap 13 BUN 23 H Creatinine 1.58 H Estim Creat Clear Calc 57.93 Est GFR (MDRD) Non-Af 48 L BUN/Creatinine Ratio 14.7 Glucose 94 Calcium 9.7 Troponin T High Sens 19 Radiography Diagnostic Testing: Clinical Impression(s) from Imaging Studies Chest X-Ray 03/29/25 18:00 IMPRESSION: No acute cardiopulmonary abnormality. Reading Location: [facility] ED attending interpretation of 2 view chest x-ray shows normal heart size, no acute infiltrate, edema or effusion. EKG Initial EKG: Prior EKG tracings: available for review Prior: Unchanged <Dr. Spencer Aguilar, DO - Last Filed: 03/29/25 19:34> [facility] MDM Narrative Medical decision making narrative: Differential: ACS, pneumonia, GERD 65-year-old male with cardiac history, DVT/PE on Eliquis presents with an episode of chest pressure, shortness of breath, lightheadedness and diaphoresis that occurred at rest. He is also had recent similar symptoms with exertion. He appears well and nontoxic. Vitals are stable. Cardiopulmonary exam normal. Abdomen soft and nontender. He is moving all extremities and neurovascularly intact. His symptoms have completely resolved prior to arrival. EKG is nonischemic troponin is 19, delta ordered. CBC and BMP overall unremarkable. Creatinine of 1.58 is higher than previous however he has been this high in the past. Chest x-ray negative. Since he is compliant with anticoagulation I did not pursue a PE workup. His orthostatic vital signs are positive and he was given IV fluids. His heart score is 6 and his symptoms are very concerning that it could be unstable angina. It has been 2 years since a stress test and he believes it has been over a decade since he had a cardiac catheterization so I think he needs admitted for cardiac workup. I discussed the case with the hospitalist for admission. External records reviewed: Stress test on 11/14/2022 Normal pharmacologic myocardial perfusion stress test, EF 49%. I have personally performed a face to face assessment of the patient and have reviewed the CRISELDA Note. I performed a substantive portion of the visit including all aspects of the following. My magdaleno findings include: History is [patient presents to the emergency department with complaint of chest discomfort. He was at rest today when he developed lightheadedness and diaphoresis and chest pressure. States with activity over the last 2 weeks he gets short of breath and diaphoretic and gets pressure in his throat and across his chest and shoulders. Patient states that he has history of 2 heart attacks but no stents. Patient's last heart catheterization was about 2003. Patient has history of diabetes as well as hypertension and high cholesterol.] Patient saw his primary care physician last week and was ordered a cardiac echocardiogram which has not been done yet. Patient states that often times when he checks his blood pressure when he has the symptoms his systolic sometimes is in the 60s to 70s. He was taken off his blood pressure medications. Exam is [HEENT-PERRLA, EOMI. Cranial nerves II through XII grossly intact. TMs clear. Mucous membranes moist. No adenopathy. Cardiovascular-regular rate and rhythm without murmur or ectopy Lungs-clear to auscultation, chest wall stable without crepitus or subcu emphysema Abdomen-normoactive bowel sounds, soft, nontender, no rebound or rigidity, no peritoneal signs. Extremities-intact ?4, normal range of motion, normal pulses, atraumatic] Medical Decison Making [EKG showed a sinus rhythm with rate of 65 bpm with a first-degree AV block and occasional PVC. Will obtain labs including troponin.] CBC with differential obtained showed a white count of 6.8 with hemoglobin 14.4 and platelet count 238. Chemistries unremarkable. Troponin was 19. 1 view chest x-ray was unremarkable. Patient with heart score of 6 and concern for acute coronary syndrome. Will discuss with hospitalist to evaluate patient for admission. Other additions or changes: [None] Lab Data Labs: Laboratory Results - last 24 hr 03/29/25 17:38 WBC 6.8 RBC 4.55 L Hgb 14.4 Hct 43.4 MCV 95.4 H MCH 31.6 MCHC 33.2 RDW Std Deviation 47.0 H RDW Coeff of Wenceslao 13.4 Plt Count 238 MPV 9.6 Immature Gran % (Auto) 0.300 Neut % (Auto) 77.2 H Lymph % (Auto) 11.7 L Pine % (Auto) 8.9 Eos % (Auto) 1.2 Baso % (Auto) 0.7 Absolute Neuts (auto) 5.3 Absolute Lymphs (auto) 0.80 L Nucleated RBC % 0 Sodium 137 Potassium 4.8 Chloride 102 Carbon Dioxide 21.7 Anion Gap 13 BUN 23 H Creatinine 1.58 H Estim Creat Clear Calc 57.93 Est GFR (MDRD) Non-Af 48 L BUN/Creatinine Ratio 14.7 Glucose 94 Calcium 9.7 Troponin T High Sens 19 Radiography Diagnostic Testing: Clinical Impression(s) from Imaging Studies Chest X-Ray 03/29/25 18:00 IMPRESSION: No acute cardiopulmonary abnormality. Reading Location: [facility] EK Initial EKG: Attestation: I personally reviewed and interpreted this EKG as follows: Comments: Sinus rhythm with ventricular rate of 65 bpm with occasional PVCs and a first-degree AV block Discharge Plan Dx/Rx/DC Orders Clinical Impression: Chest pain, Orthostatic hypotension, Chronic anticoagulation Disposition Disposition: Acute Care Hospital [facility] Discharge Date/Time: 03/29/25 20:06
--- NOTE | 2025-03-29 18:00 | RAD_ITS ---
PROCEDURE: CHEST PA AND LATERAL 03/29/2025 REASON FOR EXAM: CHEST PAIN TECHNIQUE: CHEST PA AND LATERAL COMPARISON: Chest radiograph on 06/08/2024 FINDINGS: Hardware: None Mediastinum: The mediastinal contour is stable. Lungs: No focal consolidation or significant pleural effusion. Calcification in the left upper quadrant of the abdomen is unchanged. Bones: Degenerative changes are identified within the shoulders and thoracic spine. RAD/Chest PA and Lateral IMPRESSION: No acute cardiopulmonary abnormality. Reading Location: [id number]
[2025-03-29 18:04] LABS: Hematocrit 43.4 % (40-54); Hemoglobin 14.4 g/dL (13.0-16.5); Immature Granulocytes Count 0.020 X10^3/uL (0.0-0.0); Mean Corp Hgb Conc 33.2 g/dL (32-36); Mean Corpuscular Volume 95.4 fL (80-94); Mean Platelet Vol. 9.6 fl (6.2-12.0); NRBC Flagged by Analyzer 0 % (0-5); Platelet Count 238 K/mm3 (150-450); RBC Distribution Width CV 13.4 % (11.6-14.6); RBC Distribution Width SD 47.0 fl (35.1-43.9); Red Blood Count 4.55 M/mm3 (4.6-6.2); White Blood Count 6.8 K/mm3 (4.4-11.0)
[2025-03-29] MEDS: 0.9% Normal Saline (1000mL) 1,000 ML 999 ML IV (18:17)
--- OUTSIDE RECORDS SUMMARY | 2025-03-29 18:44 | XMS RPT_ITS | CCD ---
Author Organization [facility] CliniSywy Care Team Providers Care Casino Slot Supervisor Name Role Phone Dr. Eduin Watts Primary Care Provider Dr. Eduin Watts Referring Provider Dileep ALLAN, SANJANA-C Chela Attending Provider Dr. Alexandre Valles Attending Provider Dileep ALLAN, CREDIT ADMINISTRATION OFFICER-C Chela Referring Provider Dileep ALLAN NP-C Chela Other Provider Dr. Eduin Watts Primary Care Provider Dr. Eduin Watts Referring Provider Dileep ALLAN NP-C Chela Attending Provider Dr. Yolie Skinner Emergency Provider [phone] Ramy Calvo Admit Provider Dr. Ramy Calvo Attending Provider Dr. Ramy Calvo Other Provider Dr. Arben Arguello Other Provider Dr. Marco Whiteside Other Provider Dr. Miugel Angel Lopes Other Provider Deana HARGROVE, PA Gina Talamantes Attending Provider Dr. Arben Arguello Attending Provider Dr. Marco Whiteside Attending Provider Dr. Eduin Watts Primary Care Provider Dr. Eduin Watts Referring Provider Dileep ALLAN NP-C Chela Attending Provider Dr. Eduin Watts Primary Care Provider Dr. Eduin Watts Referring Provider Dileep ALLAN, CREDIT ADMINISTRATION OFFICER-C Chela Attending Provider Alvin Chi DO Primary Care Provider ALVIN CHI Primary Care Unavailable Mac VILLAGRAN, Dr. Denny Primary Care Provider [phone] Mac VILLAGRAN, Dr. Denny Attending Provider Mac VILLAGRAN, Dr. Denny Referring Provider Velma CREDIT ADMINISTRATION OFFICER-C, Carrillo Cole Attending Provider [phone] Mac, Eduin Primary Care Unavailable Da Silva, Veto Attending Unavailable Watts, Eduin Referring Unavailable Watts, Eduin Attending Unavailable Watts, Eduin Primary Care Unavailable Watts, Eduin Referring Unavailable Watts, Eduin Primary Care Unavailable Watts, Eduin Attending Unavailable Watts, Eduin Referring Unavailable Watts, Eduin Primary Care Unavailable Watts, Eduin Attending Unavailable Watts, Eduin Primary Care Unavailable Watts, Eduin Attending Unavailable Watts, Eduin Primary Care Unavailable Watts, Eduin Attending Unavailable Watts, Eduin Primary Care Unavailable Watts, Eduin Attending Unavailable Watts, Eduin Referring Unavailable Watts, Eduin Primary Care Unavailable Velma ALLAN, Carrillo Cole Attending Unavailable Watts, Eduin Referring Unavailable Watts, Eduin Primary Care Unavailable Watts, Eduin Attending Unavailable Watts, Eduin Referring Unavailable Watts, Eduin Primary Care Unavailable Watts, Eduin Attending Unavailable Watts, Eduin Referring Unavailable Watts, Eduin Primary Care Unavailable Watts, Eduin Attending Unavailable Watts, Eduin Referring Unavailable Watts, Eduin Primary Care Unavailable Dileep CREDIT ADMINISTRATION OFFICER, Chela Attending Unavailable Dileep CREDIT ADMINISTRATION OFFICER, Chela Referring Unavailable Allergies Allergy Classification Reported Allergen(s) Allergy Type Date of Onset Reaction(s) Facility (16 sources) Meperidine; Translations: [MEPERIDINE HCL] Drug Allergy 5 [facility] (13 sources) Penicillin G Drug Allergy 1 [facility] (15 sources) Potassium; Translations: [POTASSIUM] Drug Allergy 5 [facility] (13 sources) Wheat preparation Drug Allergy 1 Other [facility] Comment on above: CELIACS DISEASE (5 sources) Milk Containing Products Allergy to substance 1 Anaphylaxis [facility] (8 sources) Milk Containing Products (Dairy) Allergy to substance 3 Anaphylaxis [facility] Comment on above: PER PT (2 sources) Cheese; Translations: [CHEESE] Drug Allergy 7 Other: See Comments [facility] (2 sources) cow milk allergenic extract; Translations: [MILK] Drug Allergy 3 Swelling [facility] Work Phone: (2 sources) Penicillins; Translations: [PENICILLINS] Propensity to adverse reactions 5 Hives [facility] (1 source) Penicillin Drug Allergy 5 [facility] (1 source) Potassium Drug Allergy 5 [facility] (1 source) Wheat preparation Drug Allergy 5 [facility] (1 source) Milk Containing Products (Dairy) Drug allergy (disorder) 5 [facility] Medications Current Medications Medication Drug Class(es) Dates Sig (Normalized) Sig (Original) [id number] actuat albuterol 0.09 mg/actuat metered dose inhaler (14 sources) beta2-Adrenergic Agonist Start: 04-02-2019 Albuterol Sulfate 1 PUFF inhaler Active 1 - 2 NMA INHALATION EVERY 4 HOURS NEEDED as needed for Sob &/Or Wheezing April 02, 2019 12:00am Start: 04-02-2019 take 1 puff(s) by in halation every four hours as needed Albuterol Sulfate Active 1 - 2 PUFF INHALATION EVERY 4 HOURS NEEDED April 02, 2019 12:00am Start: 07-18-2005 ALBUTEROL 90 M CG/ACTUATION AEROSOL INHALER Inhale as instructed. To be administered every ___ hours. See Epic Results Review or unit specific flow sheet for RT administration information. SHAKE WELL before using. 0 07/18/2005 Active apixaban 5 mg oral tablet (20 sources) Factor Xa Inhibitor Start: 11-15-2024 take 1 tablet by mouth every twelve hours ELIQUIS 5 mg tab(s) Take 1 tablet by mouth every 12 hours. 11/15/2024 Active Start: 11-07-2022 take 1 tablet by hima th twice daily Apixaban (Eliquis Dvt-Pe Treat 30d Start) 5 mg (74 tabs) tablets,dose pack Active 5 mg PO TWICE A DAY November 07, 2022 12:11pm Start: 07-26-2022 End: 11-07-2022 take 1 tablet by mouth once Apixaban (Eliquis Dvt-Pe T reat 30d Start) 5 mg (74 tabs) tablets,dose pack Discontinued 5 mg PO ONCE July 26, 2022 12:30pm November 07, 2022 12:12pm Start: 07-13-2022 End: 07-26-2022 take 1 tablet by mouth twice daily Apixaban (Eliquis Dvt-Pe Treat 30d Start) 5 mg (74 tabs) tablets,dose pack Discontinued 5 mg PO TWICE A DAY 0 July 13, 2022 12:00am July 26, 2022 12:31pm atorvastatin 40 mg oral tablet (5 sources) HMG-CoA Reductase Inhibitor Start: 03-25-2024 take 1 tablet by mouth once daily Atorvastatin 40 mg tablet Active 40 mg PO DAILY March 25, 2024 12:00am Budesonide (14 sources) Corticosteroid Start: 02-14-2015 take 1 puff(s) by inhalation twice daily Budesonide Active 2 PUFF INHALATION TWICE A DAY February 14, 2015 1:56am Start: 02-14-2015 End: 05-04-2023 Budesonide 1 PUFF inhaler Discontinued 2 NMA INHALATION TWICE A DAY February 14, 2015 12:00am May 04, 2023 9:09pm Start: 02-14-2015 End: 05-04-2023 take 1 puff(s) by inhalation twice daily Budesonide Discontinued 2 PUFF INHALATION TWICE A DAY February 13, 2015 11:00pm May 04, 2023 8:09pm Start: 02-14-2015 End: 05-04-2023 take 1 puff(s) by inhalation twice daily Budesonide Discontinued 2 PUFF INHALATION TWICE A DAY February 14, 2015 12:00am May 04, 2023 9:09pm Start: 02-14-2015 take 1 puff(s) by in halation twice daily Budesonide Active 2 PUFF INHALATION TWICE A DAY February 13, 2015 11:00pm Start: 02-14-2015 take 1 puff(s) by in halation twice daily Budesonide Active 2 PUFF INHALATION TWICE A DAY February 14, 2015 12:00am Start: 07-18-2005 take 2 puff(s) by in halation once daily PULMICORT TURBUHALER 200 MCG/INHALATION BREATH ACTIVATED Inhale 2 Puffs as instructed once daily. 0 07/18/2005 Active 24 hr buPROPion hydrochloride 300 mg extended release oral tablet (20 sources) Aminoketone Start: 11-15-2024 take 1 tablet by mouth once daily buPROPion XL (WELLBUTRIN XL) 300 mg 24 hr tablet Take 1 tablet by mouth once daily. 11/15/2024 Active Start: 10-06-2023 take 1 tablet by hima th every twelve hours at bedtime Bupropion Hcl (Wellbutrin Sr) 150 mg tablet sustained-release 12 hr Active 150 mg PO AT BEDTIME October 06, 2023 3:28pm Start: 09-29-2020 End: 10-06-2023 take 1 tablet by mouth twice daily Bupropion Hcl (Wellbutrin Sr) 150 mg tablet sustained-release 12 hr Discontinued 150 mg PO TWICE A DAY September 29, 2020 1:00am October 06, 2023 3:28pm Start: 07-31-2020 End: 09-29-2020 Wellbutrin Xl Discontinued N ovember 2019 7:51pm September 29, 2020 10:21am Start: 07-31-2020 End: 09-29-2020 Wellbutrin Xl Discontinued N ovember 2019 12:00am September 29, 2020 9:21am Start: 07-31-2020 End: 09-29-2020 Wellbutrin Xl Discontinued N ovember 2019 1:00am September 29, 2020 10:21am busPIRone hydrochloride 5 mg oral tablet (1 source) Start: 10-18-2016 take 2 tablets by mouth three times daily busPIRone (BUSPAR) 5 mg tablet Take 2 tablets by mouth three times daily. 10/18/2016 Active carvedilol 3.125 mg oral tablet (20 sources) alpha-Adrenergi c Monty, beta-Adrenergic Monty Start: 11-15-2024 take 1 tablet by mouth every twelve hours carvedilol (COREG) 3.125 mg tablet Take 1 tablet by mouth every 12 hours. 11/15/2024 Active Start: 11-07-2022 End: 07-05-2024 take 1 tablet by mouth twice daily Carvedilol 3.125 mg tablet Discontinued 3.125 mg PO TWICE A DAY 60 6 December 13, 2023 11:20am July 05, 2024 10:24am escitalopram 20 mg oral tablet (20 sources) Serotonin Reuptake Inhibitor Start: 11-15-2024 take 1 tablet by mouth once daily escitalopram oxalate (LEXAPRO) 20 mg tablet Take 1 tablet by mouth once daily. 11/15/2024 Active Start: 03-25-2024 take 2 tablets by mo uth once daily Escitalopram Oxalate 10 mg tablet Active 20 mg PO DAILY March 25, 2024 1:00pm Start: 07-31-2020 End: 03-25-2024 take 1 tablet by mouth once daily Escitalopram Oxalate 10 MG tablet Discontinued 10 mg PO DAILY July 31, 2020 1:00am March 25, 2024 1:02pm Start: 04-02-2019 End: 04-05-2019 take 1 tablet by mouth at bedtime Escitalopram Oxalate 20 MG tablet Discontinued 20 mg PO AT BEDTIME April 02, 2019 12:00am April 05, 2019 9:08am mood folic acid 2.2 mg / vitamin b12 0.5 mg / vitamin b6 25 mg oral tablet (1 source) Vitamin B12 Start: 10-18-2016 folic acid-B6- B12 (FOLCAPS) 2.2-25-0.5 mg tab Take 1 tablet by mouth once daily. 30 tablet 5 10/18/2016 Active furosemide 40 mg oral tablet (4 sources) Loop Diuretic Start: 03-25-2024 Furosemide 40 mg tablet Active 40 mg PO .Q3Days March 25, 2024 12:00am 24 hr isosorbide mononitrate 30 mg extended release oral tablet (20 sources) Nitrate Vasodilator Start: 11-15-2024 take 1 tablet by mouth every twelve hours isosorbide mononitrate ER (IMDUR) 30 mg 24 hr tablet Take 1 tablet by mouth every 12 hours. 11/15/2024 Active Start: 10-06-2023 End: 05-03-2024 take 1 tablet by mouth twice daily Isosorbide Mononitrate 30 mg tablet extended release 24 hr Discontinued 30 mg PO TWICE A DAY 180 3 October 11, 2023 6:34pm March 25, 2024 1:02pm dose increased to twice a day Start: 05-05-2023 End: 10-06-2023 take 1 tablet by mouth once daily, then take 1 tablet by mouth every twenty-four hours Isosorbide Mononitrate 30 mg tablet extended release 24 hr Discontinued 30 mg PO DAILY 90 June 06, 2023 2:22pm October 06, 2023 3:37pm 24 hr levETIRAcetam 750 mg extended release oral tablet (1 source) Start: 10-18-2016 take 2 tablets by mouth once daily at bedtime levETIRAcetam ER (KEPPRA XR) 750 mg 24 hr tablet Take 2 tablets by mouth daily at bedtime. 60 tablet 5 10/18/2016 Active levothyroxine sodium 0.075 mg oral tablet (5 sources) l-Thyroxi ne Start: 11-15-2024 take 1 tablet by mouth once daily levothyroxine (SYNTHROID) 75 mcg tablet Take 1 tablet by mouth once daily. 11/15/2024 Active Start: 03-25-2024 take 1 capsule by mo [facility] once daily Levothyroxine 50 mcg capsule Active 50 ug PO DAILY March 25, 2024 12:00am lisinopril 10 mg oral tablet (20 sources) Angiotensin Converting Enzyme Inhibitor Start: 03-25-2024 End: 06-04-2024 take 5 mg by mouth once daily Lisinopril 10 mg tablet Active 5 mg PO DAILY 45 June 04, 2024 8:07am Start: 03-30-2023 End: 03-25-2024 take 1 tablet by mouth once daily Lisinopril 10 mg tablet Discontinued 0 .ROUTE .COMPLEX 30 October 31, 2023 2:21pm March 25, 2024 1:02pm TAKE 1 TABLET BY MOUTH ONCE DAILY Start: 08-10-2022 End: 03-30-2023 take 1 tablet by mouth once daily Lisinopril 5 mg tablet Discontinued 5 mg PO DAILY 90 March 08, 2023 12:56pm March 30, 2023 11:25am loperamide hydrochloride 2 mg oral capsule (4 sources) Opioid Agonist Start: 03-25-2024 take 1 capsule by mouth every six hours as needed Loperamide 2 mg capsule Active 2 mg PO EVERY 6 HOURS as needed March 25, 2024 12:00am meloxicam 15 mg oral tablet (5 sources) Nonsteroidal Anti-inflammatory Drug Start: 03-25-2024 take 1 tablet by mouth once daily Meloxicam 15 mg tablet Active 15 mg PO DAILY March 25, 2024 12:00am methylphenidate hydrochloride 20 mg oral tablet (1 source) Central Nervous System Stimulant take 1 tablet by mouth twice daily methylphenidate (RITALIN) 20 mg tablet Indications: Anemia , Leukopenia Take 20 mg by mouth twice daily. Active nitroglycerin 0.4 mg sublingual tablet (14 sources) Nitrate Vasodilator Start: 09-28-2020 Nitroglycerin 0.4 mg tablet, sublingual Active 0.4 mg SL every 5 to 15 minutes as needed for Chest Pain September 28, 2020 1:00am do not exceed 3 doses per episode Start: 09-28-2020 Nitroglycerin Active 0.4 MG SL every 5 to 15 minutes September 28, 2020 1:00am do not exceed 3 doses per episode Start: 10-21-2016 nitroglycerin sublingual (NITROQUICK) 0.4 mg SL tablet Dissolve 1 tablet under the tongue as needed. FOR CHEST PAIN. IF NO RELIEF CALL 911 1 Bottle of 25 3 10/21/2016 Active OXcarbazepine 300 mg oral tablet (20 sources) Anti-epileptic Agent Start: 11-15-2024 take 1 tablet by mouth every twelve hours OXcarbazepine (TRILEPTAL) 150 mg tablet Take 1 tablet by mouth every 12 hours. 11/15/2024 Active Start: 11-15-2024 take 1 tablet by hima th every twelve hours OXcarbazepine (TRILEPTAL) 300 mg tablet Take 1 tablet by mouth every 12 hours. 11/15/2024 Active Start: 04-02-2019 End: 09-29-2020 take 1 tablet by mouth twice daily Oxcarbazepine 150 mg tablet Active 150 mg PO TWICE A DAY 60 September 29, 2020 11:03am Start: 04-02-2019 End: 05-05-2021 take 1 tablet by mouth twice daily Oxcarbazepine 300 mg tablet Discontinued 300 mg PO TWICE A DAY 60 September 29, 2020 11:04am May 05, 2021 2:19pm rizatriptan 10 mg oral tablet (1 source) Serotonin-1b and Serotonin-1d Receptor Agonist take 1 tablet by mouth every two hours as needed rizatriptan (MAXALT) 10 mg tablet Take 10 mg by mouth as needed. May repeat in 2 hours if needed Active Salmeterol (14 sources) beta2-Adrenergic Agonist Start: 02-15-20 15 take 1 puff(s) by inhalation once daily Salmeterol Active 2 PUFF INHALATION DAILY February 14, 2015 1:56am Start: 02-14-2015 End: 05-04-2023 Salmeterol 1 PUFF inhaler Discontinued 2 NMA INHALATION DAILY February 14, 2015 12:00am May 04, 2023 9:11pm Start: 02-14-2015 End: 05-04-2023 take 1 puff(s) by inhalation once daily Salmeterol Discontinued 2 PUFF INHALATION DAILY February 13, 2015 11:00pm May 04, 2023 8:11pm Start: 02-14-2015 End: 05-04-2023 take 1 puff(s) by inhalation once daily Salmeterol Discontinued 2 PUFF INHALATION DAILY February 14, 2015 12:00am May 04, 2023 9:11pm Start: 02-14-2015 take 1 puff(s) by in halation once daily Salmeterol Active 2 PUFF INHALATION DAILY February 13, 2015 11:00pm Start: 02-14-2015 take 1 puff(s) by in halation once daily Salmeterol Active 2 PUFF INHALATION DAILY February 14, 2015 12:00am Start: 07-18-2005 SEREVENT DISKU S 50 MCG/DOSE FOR INHALATION Inhale as instructed. 0 07/18/2005 Active Completed/Discontinued Medications Medication Drug Class(es) Dates Sig (Normalized) Sig (Original) acetaminophen 325 mg / HYDROcodone bitartrate 5 mg oral tablet (20 sources) Opioid Agonist Start: 04-05-2019 End: 04-14-2019 Hydrocodone-Acetami nophen 1 TABLET tablet Discontinued 1 - 2 {tbl} PO EVERY 4 HOURS NEEDED as needed for Mod-Severe Pain (4-10/10) 30 5 0 April 05, 2019 April 09, 2019 12:00am April 14, 2019 12:08am Dog bite of calf Open bite, unspecified lower leg, initial encounter Bitten by dog, initial encounter Start: 04-05-2019 End: 04-14-2019 take 1 tablet by mouth every four hours as needed Hydrocodone-Acetaminophen Discontinued 1 - 2 TABLET PO EVERY 4 HOURS NEEDED 30 5 April 05, 2019 April 14, 2019 12:08am Start: 03-07-2019 End: 03-10-2019 Hydrocodone-Acetaminophen 1 TABLET tablet Discontinued 1 {tbl} PO EVERY 4 HOURS NEEDED as needed for Pain 10 2 0 March 07, 2019 March 08, 2019 12:00am March 10, 2019 12:09am Dog bite Bitten by dog, initial encounter Start: 03-07-2019 End: 03-10-2019 take 1 tablet by mouth every four hours as needed Hydrocodone-Acetaminophen Discontinued 1 TABLET PO EVERY 4 HOURS NEEDED 10 2 March 07, 2019 March 10, 2019 12:09am 72 hr fentaNYL 0.05 mg/hr transdermal system (20 sources) Opioid Agonist Start: 05-27-2015 End: 04-02-2019 apply 100 ug transdermal route every other day Fentanyl 50 MCG patch Discontinued 100 ug TRANSDERM. Q2D May 27, 2015 3:27pm April 02, 2019 1:17pm PAIN Start: 05-27-2015 End: 04-02-2019 Fentanyl Discontinued 100 MC G TRANSDERM. Q2D May 27, 2015 3:27pm April 02, 2019 1:17pm Start: 02-15-2015 End: 05-27-2015 Fentanyl 50 MCG patch Discon tinued 50 ug TRANSDERM. Every 3 Days 5 0 February 15, 2015 12:00am May 27, 2015 3:27pm Start: 03-10-2014 End: 02-15-2015 Fentanyl 100 MCG patch Disco ntinued 100 ug TRANSDERM. Q48H March 10, 2014 12:00am February 15, 2015 11:32am fentaNYL 100 mcg /hr Indications: Anemia , Leukopenia Apply 1 Patch as directed every 48 hours. Active folic acid 1 mg oral tablet (13 sources) Start: 03-08-2021 End: 05-05-2021 take 1 tablet by mouth once daily Folic Acid 1 mg tablet Discontinued 1 mg PO DAILY 30 2 March 08, 2021 12:00am May 05, 2021 2:18pm imipramine hydrochloride 25 mg oral tablet (14 sources) Tricyclic Antidepressant Start: 05-19-2016 End: 04-02-2019 Imipramine Hcl 25 MG tablet Discontinued 2 {tbl} PO DAILY May 19, 2016 12:00am April 02, 2019 1:17pm Start: 05-19-2016 End: 12-07-2024 take 2 tablets by mouth once daily Imipramine Hcl Discontinued 2 TABLET PO DAILY May 19, 2016 12:00am April 02, 2019 1:17pm LORazepam 0.5 mg oral tablet (13 sources) Benzodiazepine Start: 04-05-2019 End: 04-14-2019 take 1 tablet by mouth twice daily Lorazepam 0.5 MG tablet Discontinued 0.5 mg PO TWICE A DAY 14 April 05, 2019 12:00am April 11, 2019 12:00am April 14, 2019 12:09am Anxiety and depression Anxiety disorder, unspecified Severe anxiety rOPINIRole 1 mg oral tablet (13 sources) Nonergot Dopamine Agonist Start: 02-14-2015 End: 02-15-2015 take 1-3 mg by mouth three times daily as needed Ropinirole Hcl (Requip) 1 MG tablet Discontinued 1 - 3 mg PO 3 TIMES DAILY NEEDED as needed for Leg Cramps February 14, 2015 12:00am February 15, 2015 8:26am SUMAtriptan 25 mg oral tablet (20 sources) Serotonin-1b and Serotonin-1d Receptor Agonist Start: 09-28-2020 End: 09-29-2020 Start: 05-27-2015 End: 04-02-2019 take 1 tablet by mouth once daily as needed for headache Sumatriptan Succinate 25 MG tablet Discontinued 25 mg PO DAILY NEEDED as needed for Headache May 27, 2015 12:00am April 02, 2019 1:18pm topiramate 50 mg oral tablet (13 sources) Start: 09-29-2020 End: 07-26-2022 Topiramate (Topamax) 50 mg t ablet Discontinued 0 .ROUTE .COMPLEX 60 September 29, 2020 1:00am July 26, 2022 12:29pm Take 1 tablet once daily x 1 week, then 1 tablet BID thereafter ubrogepant 50 mg oral tablet (14 sources) Start: 09-29-2020 End: 05-05-2021 Ubrogepant (Ubrelvy) 50 mg t ablet Discontinued September 29, 2020 11:05am May 05, 2021 2:19pm Start: 09-29-2020 End: 07-26-2022 take 1 tablet by mouth once as needed Ubrogepant (Ubrelvy) 50 mg tablet Discontinued 50 mg PO ONCE as needed for migraine 14 0 September 29, 2020 1:00am July 26, 2022 12:30pm do not exceed 1 tab per day Problems Active Problems Problem Classification Problem Date Documented Da te Episodic/Chronic Alcohol-related disorders (13 sources) History of alcohol abuse; Translations: [Alcohol abuse, in remission] 03-08-2021 Chronic Anxiety disorders (13 sources) Posttraumatic stress disorder; Translations: [Post-traumatic stress disorder, unspecified] 03-08-2021 Chronic Aortic; peripheral; and visceral artery aneurysms (18 sources) Aortic root dilatation; Translations: [Thoracic aortic ectasia] Onset: 4 11-07-2022 Chronic Asthma (14 sources) Asthma; Translations: [Unspecified asthma, uncomplicated] Onset: 3 03-08-2021 Chronic Cancer of rectum and anus (13 sources) History of malignant neoplasm of digestive organ; Translations: [Personal history of other malignant neoplasm of rectum, rectosigmoid junction, and anus] 04-21-2021 Episodic Cardiac dysrhythmias (2 sources) Paroxysmal atrial fibrillation; Translations: [Paroxysmal atrial fibrillation] 02-17-2025 Chronic Cardiac dysrhythmias (13 sources) Palpitations - rapid; Translations: [Palpitations] 05-05-2021 Episodic Chronic obstructive pulmonary disease and bronchiectasis (13 sources) Chronic obstructive lung disease; Translations: [Chronic obstructive pulmonary disease, unspecified] 03-08-2021 Chronic Chronic ulcer of skin (13 sources) Chronic ulcer of calf; Translations: [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 without evidence of necrosis] 03-08-2021 Chronic Conditions associated with dizziness or vertigo (1 source) Dizziness and giddiness; Translations: [Dizziness and giddiness] Onset: Episodic Congestive heart failure; nonhypertensive (16 sources) Heart failure with reduced ejection fraction; Translations: [Unspecified systolic (congestive) heart failure] 11-07-2022 Chronic Coronary atherosclerosis and other heart disease (10 sources) Preinfarction syndrome; Translations: [Unstable angina] Onset: 3 05-04-2023 Chronic Diabetes mellitus without complication (17 sources) Type 2 diabetes mellitus; Translations: [Type 2 diabetes mellitus without complications] Onset: 3 03-08-2021 Chronic Disorders of lipid metabolism (15 sources) Hyperlipidemia; Translations: [Hyperlipidemia, unspecified] Onset: 4 04-21-2021 Chronic Disorders usually diagnosed in infancy, childhood, or adolescence (1 source) Attention deficit hyperactivity disorder, predominantly inattentive type; Translations: [Other specified behavioral and emotional disorders with onset usually occurring in childhood and adolescence] Onset: 3 06-06-2013 Chronic E Codes: Fall (5 sources) Fall; Translations: [Unspecified fall, initial encounter] 01-11-2024 Episodic E Codes: Natural/environment (13 sources) Dog bite - wound; Translations: [Bitten by dog, initial encounter] 04-21-2021 Episodic Epilepsy; convulsions (20 sources) Seizure disorder; Translations: [Epilepsy, unspecified, not intractable, without status epilepticus] 09-28-2020 Chronic Epilepsy; convulsions (15 sources) Seizure; Translations: [Unspecified convulsions] Onset: 3 05-20-2016 Episodic Esophageal disorders (14 sources) Gastroesophageal reflux disease; Translations: [Gastro-esophageal reflux disease without esophagitis] Onset: 3 03-08-2021 Chronic Essential hypertension (20 sources) Essential hypertension; Translations: [Essential (primary) hypertension] Chronic Headache; including migraine (20 sources) Migraine; Translations: [Migraine, unspecified, not intractable, without status migrainosus] Onset: 3 03-08-2021 Chronic Headache; including migraine (13 sources) Headache; Translations: [Headache] 05-11-2021 Episodic Miscellaneous mental health disorders (1 source) Dissociative convulsions; Translations: [Conversion disorder with seizures or convulsions] Onset: 7 10-18-2016 Chronic Mood disorders (1 source) Bipolar affective disorder, currently depressed, moderate; Translations: [Bipolar disorder, current episode depressed, moderate] Onset: 7 10-18-2016 Chronic Nonspecific chest pain (20 sources) Chest pain; Translations: [Chest pain, unspecified] 05-05-2021 Episodic Open wounds of extremities (20 sources) Open wound of lower leg with complication; Translations: [Unspecified open wound, right lower leg, initial encounter] 04-05-2019 Episodic Comment on above: dog bite necrotizing infection abscess right proximal medial leg Other aftercare (4 sources) Long-term current use of anticoagulant; Translations: [skilled nursing (current) use of anticoagulants] 06-16-2024 Episodic Other circulatory disease (5 sources) Low blood pressure; Translations: [Hypotension, unspecified] 01-11-2024 Episodic Other connective tissue disease (13 sources) Necrotizing soft tissue infection; Translations: [Other specified soft tissue disorders] 03-08-2021 Episodic Comment on above: dog bite necrotizing infection abscess right proximal medial leg Other ear and sense organ disorders (1 source) Impacted cerumen of bilateral ears; Translations: [Impacted cerumen, bilateral] 12-07-2024 Episodic Other gastrointestinal disorders (1 source) Malabsorption syndrome; Translations: [Other intestinal malabsorption] Onset: 3 06-06-2013 Chronic Other gastrointestinal disorders (20 sources) History of bariatric surgical procedure; Translations: [Bariatric surgery status] Onset: 1 05-05-2021 Episodic Other injuries and conditions due to external causes (18 sources) Closed injury of head; Translations: [Unspecified injury of head, initial encounter] 05-20-2016 Episodic Other injuries and conditions due to external causes (4 sources) Injury of head; Translations: [Unspecified injury of head, initial encounter] 06-16-2024 Episodic Other lower respiratory disease (9 sources) Dyspnea on exertion; Translations: [Other forms of dyspnea] 11-07-2022 Episodic Other lower respiratory disease (2 sources) Other forms of dyspnea; Translations: [Other respiratory abnormalities] 11-07-2022 Episodic Other lower respiratory disease (1 source) Shortness of breath; Translations: [Shortness of breath] Onset: Episodic Other nervous system disorders (14 sources) Chronic pain syndrome; Translations: [Chronic pain syndrome] Onset: 3 03-08-2021 Chronic Other nervous system disorders (13 sources) Neuropathy; Translations: [Polyneuropathy, unspecified] 09-28-2020 Chronic Other nutritional; endocrine; and metabolic disorders (13 sources) Morbid obesity; Translations: [Morbid (severe) obesity due to excess calories] 03-08-2021 Chronic Other nutritional; endocrine; and metabolic disorders (4 sources) H/O: diabetes mellitus; Translations: [Personal history of other endocrine, nutritional and metabolic disease] 06-16-2024 Episodic Other screening for suspected conditions (not mental disorders or infectious disease) (15 sources) Cardiovascular stress test abnormal; Translations: [Abnormal result of other cardiovascular function study] Episodic Phlebitis; thrombophlebitis and thromboembolism (13 sources) H/O: Deep vein thrombosis; Translations: [Personal history of other venous thrombosis and embolism] 03-08-2021 Episodic Pulmonary heart disease (11 sources) Pulmonary embolism; Translations: [Other pulmonary embolism without acute cor pulmonale] 07-21-2022 Episodic Residual codes; unclassified (13 sources) History of surgical procedure on cervical spine; Translations: [Other specified postprocedural states] 03-08-2021 Episodic Comment on above: benign tumor removal Screening and history of mental health and substance abuse codes (13 sources) H/O: attempted suicide; Translations: [History of suicide attempt] 03-08-2021 Episodic Skin and subcutaneous tissue infections (13 sources) Abscess of lower limb; Translations: [Cutaneous abscess of right lower limb] 03-08-2021 Episodic Comment on above: from dog bite necrot izing infection right proximal medial leg Sprains and strains (13 sources) Strain of muscle of lower limb; Translations: [Strain of unspecified muscles, fascia and tendons at thigh level, left thigh, initial encounter] 08-01-2020 Episodic Substance-related disorders (13 sources) History of substance abuse; Translations: [Other psychoactive substance abuse, in remission] 03-08-2021 Chronic Superficial injury; contusion (18 sources) Abrasion and/or friction burn of wrist without infection; Translations: [Abrasion or friction burn of wrist without infection] 05-20-2016 Episodic Thyroid disorders (2 sources) Hypothyroidism, unspecified; Translations: [Hypothyroidism, unspecified] Onset: Chronic Past or Other Problems Problem Classification Problem Date Documented Da te Episodic/Chronic Abdominal pain (1 source) Generalized abdominal pain; Translations: [Generalized abdominal pain] Onset: 02-16-2006 03-28-2024 Episodic Genitourinary symptoms and ill-defined conditions (1 source) Finding of urine output; Translations: [Anuria and oliguria] Onset: 06-06-2013 06-06-2013 Episodic Malaise and fatigue (18 sources) Fatigue; Translations: [Other fatigue] Onset: 07-02-2024 02-20-2021 Episodic Other bone disease and musculoskeletal deformities (1 source) Osteitis condensans; Translations: [Osteitis condensans, unspecified site] Onset: 06-06-2013 06-06-2013 Episodic Other diseases of veins and lymphatics (1 source) Peripheral venous insufficiency; Translations: [Venous insufficiency (chronic) (peripheral)] Onset: 06-06-2013 06-06-2013 Episodic Other endocrine disorders (1 source) Disorder of endocrine system; Translations: [Endocrine disorder, unspecified] Onset: 06-06-2013 06-06-2013 Episodic Other non-traumatic joint disorders (1 source) Arthralgia of the pelvic region and thigh; Translations: [Pain in unspecified hip] Onset: 06-06-2013 09-13-2021 Episodic Other non-traumatic joint disorders (1 source) Pain in right hip; Translations: [Pain in right hip] Onset: 09-19-2024 Episodic Other skin disorders (1 source) Other skin changes; Translations: [Other symptoms involving skin and integumentary tissues] Onset: 06-06-2013 06-06-2013 Episodic Residual codes; unclassified (1 source) Amnesia; Translations: [Other amnesia] Onset: 06-06-2013 06-06-2013 Episodic Results Test Name Value Interpretation Reference Range Facility Absolute lymphocyte countOrd ered By: Eduin Watts on 2025 Lymphocytes Auto (Unsp spec) [#/Vol] 0.84 10*3/uL 0.83-4.51 [facility] Absolute neutrophil countOrd ered By: Eduin Watts on 2025 Neutrophils (Bld) [#/Vol] 2.8 10*3/uL 2.0-7.7 [facility] Anion gap in Serum or Plasma Ordered By: Eduin Watts on 2025 Anion gap [Moles/Vol] 11 mmol/L 5-15 [facility] Automated lymphocyte count a s percentage of total leukocytesOrdered By: Eduin Watts on 2025 Lymphocytes/100 WBC Auto (Unsp spec) 20.0 % 19-41 [facility] BUN/creatinine ratioOrdered By: Eduin Watts on 2025 Urea nitrogen/Creatinine [Mass ratio] 18.5 mg/mg 10-20 [facility] Basic Metabolic Profile (BMP )on 2025 BUN/CRE 18.5 RATIO Normal 10-20 [facility] Comment on above: Performed By: #### L 500.2500, L100.0100, L501.9520 #### [facility] [address] [place], [address] Calcium [Mass/Vol] 9.1 mg/dL Normal 7.6-11.0 [facility] Comment on above: Performed By: #### L 500.2500, L100.0100, L501.9520 #### [facility] [address] [place], [address] Chloride [Moles/Vol] 105 mmol/L Normal 98-[address] [facility] Comment on above: Performed By: #### L 500.2500, L100.0100, L501.9520 #### [facility] [address] [place], [address] CO2 [Moles/Vol] 22.5 mmol/L Normal 21.0-32.0 [facility] Comment on above: Performed By: #### L 500.2500, L100.0100, L501.9520 #### [facility] [address] [place], [address] Creatinine [Mass/Vol] 1.04 mg/dL Normal 0.70-1.20 [facility] Comment on above: Performed By: #### L 500.2500, L100.0100, L501.9520 #### [facility] [address] [place], [address] GAP 11 Normal 5-15 [facility] Comment on above: Performed By: #### L 500.2500, L100.0100, L501.9520 #### [facility] [address] [place], [address] GFR/1.73 sq M.predicted among non-blacks MDRD (S/P/Bld) [Vol rate/Area] 79 mL/min/{1.73_m2} Normal >60 [facility] Comment on above: Result Comment: mL/m in/1.73m2 CKD-EPI Creatinine Equation (2020) Performed By: #### L 500.2500, L100.0100, L501.9520 #### [facility] [address] [place], [address] Glucose [Mass/Vol] 88 mg/dL Normal 70-99 [facility] Comment on above: Performed By: #### L 500.2500, L100.0100, L501.9520 #### [facility] [address] [place], [address] Potassium [Moles/Vol] 4.5 mmol/L Normal 3.3-5.1 [facility] Comment on above: Performed By: #### L 500.2500, L100.0100, L501.9520 #### [facility] [address] [place], [address] Sodium [Moles/Vol] 138 mmol/L Normal 133-145 [facility] Comment on above: Performed By: #### L 500.2500, L100.0100, L501.9520 #### [facility] [address] [place], [address] Urea nitrogen [Mass/Vol] 19 mg/dL Normal 4-19 [facility] Comment on above: Performed By: #### L 500.2500, L100.0100, L501.9520 #### [facility] [address] [place], [address] Basophil percentageOrdered B y: Eduin Watts on 07-07-2025 Basophils/100 WBC (Bld) 1.2 % High 0-1 [facility] CBC W/Diff, Automatedon 07-0 7-202 Absolute Lymph 0.84 X10 3/uL Normal 0.83-4.51 [facility] Comment on above: Performed By: #### L 500.2500, L100.0100, L501.9520 #### [facility] [address] [place], [address] Absolute Neut 2.8 X10 3/uL Normal 2.0-7.7 [facility] Comment on above: Performed By: #### L 500.2500, L100.0100, L501.9520 #### [facility] [address] [place], [address] Basophils/100 WBC (Bld) 1.2 % High 0-1 [facility] Comment on above: Performed By: #### L 500.2500, L100.0100, L501.9520 #### [facility] [address] [place], [address] Eosinophils/100 WBC (Bld) 3.1 % Normal 0-5 [facility] Comment on above: Performed By: #### L 500.2500, L100.0100, L501.9520 #### [facility] [address] [place], [address] Erythrocyte distribution width (RBC) [Ratio] 13.5 % Normal 11.6-14.6 [facility] Comment on above: Performed By: #### L 500.2500, L100.0100, L501.9520 #### [facility] [address] [place], [address] Hematocrit (Bld) [Volume fraction] 41.5 % Normal 40-54 [facility] Comment on above: Performed By: #### L 500.2500, L100.0100, L501.9520 #### [facility] [address] [place], [address] Hemoglobin (Bld) [Mass/Vol] 13.6 g/dL Normal 13.0-16.5 [facility] Comment on above: Performed By: #### L 500.2500, L100.0100, L501.9520 #### [facility] [address] [place], [address] IG% 0.200 Normal 0.0-0.9 [facility] Comment on above: Result Comment: IG% - Immature Granulocytes (promyelocytes, myelocytes and metamyelocytes) > 1% indicates that a LEFT SHIFT is Present. Performed By: #### L 500.2500, L100.0100, L501.9520 #### [facility] [address] [place], [address] Lymphocytes/100 WBC (Bld) 20.0 % Normal 19-41 [facility] Comment on above: Performed By: #### L 500.2500, L100.0100, L501.9520 #### [facility] [address] [place], [address] MCH (RBC) [Entitic mass] 31.4 pg Normal 27.0-32.0 [facility] Comment on above: Performed By: #### L 500.2500, L100.0100, L501.9520 #### [facility] [address] [place], [address] MCHC (RBC) [Mass/Vol] 32.8 g/dL Normal 32-36 [facility] Comment on above: Performed By: #### L 500.2500, L100.0100, L501.9520 #### [facility] [address] [place], [address] MCV (RBC) [Entitic vol] 95.8 fL High 80-94 [facility] Comment on above: Performed By: #### L 500.2500, L100.0100, L501.9520 #### [facility] [address] [place], [address] Monocytes/100 WBC (Bld) 10.0 % Normal 0-10 [facility] Comment on above: Performed By: #### L 500.2500, L100.0100, L501.9520 #### [facility] [address] [place], [address] Neutrophils/100 WBC (Bld) 65.5 % Normal 47-70 [facility] Comment on above: Performed By: #### L 500.2500, L100.0100, L501.9520 #### [facility] [address] [place], [address] Nucleated RBC (Bld) [#/Vol] 0 10*3/uL Normal 0-5 [facility] Comment on above: Performed By: #### L 500.2500, L100.0100, L501.9520 #### [facility] [address] [place], [address] Platelet mean volume (Bld) [Entitic vol] 10.3 fL Normal 6.2-12.0 [facility] Comment on above: Performed By: #### L 500.2500, L100.0100, L501.9520 #### [facility] [address] [place], [address] Platelets (Bld) [#/Vol] 225 10*3/uL Normal 150-450 [facility] Comment on above: Performed By: #### L 500.2500, L100.0100, L501.9520 #### [facility] [address] [place], [address] RBC (Bld) [#/Vol] 4.33 10*6/uL Low 4.6-6.2 [facility] Comment on above: Performed By: #### L 500.2500, L100.0100, L501.9520 #### [facility] [address] [place], [address] RDW SD 47.9 fl High 35.1-43.9 [facility] Comment on above: Performed By: #### L 500.2500, L100.0100, L501.9520 #### [facility] [address] [place], [address] WBC (Bld) [#/Vol] 4.2 10*3/uL Low 4.4-11.0 [facility] Comment on above: Performed By: #### L 500.2500, L100.0100, L501.9520 #### [facility] [address] [place], [address] Carbon dioxide, total [Moles /volume] in Central venous bloodOrdered By: Eduin Watts on 2025 CO2 [Moles/Vol] 22.5 mmol/L 21.0-32.0 [facility] Chloride assayOrdered By: Santos Watts on 2025 Chloride [Moles/Vol] 105 mmol/L 98-[address] [facility] Eosinophil percentageOrdered By: Eduin Watts on 2025 Eosinophils/100 WBC (Bld) 3.1 % 0-5 [facility] Erythrocyte distribution wid th ratioOrdered By: Eduin Watts on 2025 Erythrocyte distribution width (RBC) [Ratio] 13.5 % 11.6-14.6 [facility] Erythrocyte distribution wid th standard deviationOrdered By: Eduin Watts on 2025 Erythrocyte distribution width (RBC) [Ratio] 47.9 fl High 35.1-43.9 [facility] Glomerular filtration rate ( GFR) estimation/1.73 sq m using serum, plasma, or whole bOrdered By: Eduin Watts on 2025 GFR/1.73 sq M.predicted among non-blacks MDRD (S/P/Bld) [Vol rate/Area] 79 mL/min/{1.73_m2} >60 [facility] Comment on above: mL/min/1.73m2 CKD-EP I Creatinine Equation (2020) Hematocrit Auto (Bld) [Volum e fraction]Ordered By: Eduin Watts on 2025 Hematocrit (Bld) [Volume fraction] 41.5 % 40-54 [facility] Hemoglobin measurementOrdere d By: Eduin Watts on 2025 Hemoglobin (Bld) [Mass/Vol] 13.6 g/dL 13.0-16.5 [facility] Immature granulocytes/100 WB C Auto (Bld)Ordered By: Eduin Watts on 2025 Immature granulocytes/100 WBC (Bld) 0.200 % 0.0-0.9 [facility] Comment on above: IG% - Immature Granu locytes (promyelocytes, myelocytes and metamyelocytes) > 1% indicates that a LEFT SHIFT is Present. MCV (mean corpuscular volume ) determinationOrdered By: Eduin Watts on 2025 MCV (RBC) [Entitic vol] 95.8 fL High 80-94 [facility] Mean corpuscular hemoglobin (MCH) determinationOrdered By: Eduin Watts on 2025 MCH (RBC) [Entitic mass] 31.4 pg 27.0-32.0 [facility] Mean corpuscular hemoglobin concentration (MCHC) determinationOrdered By: Eudin Watts on 2025 MCHC (RBC) [Mass/Vol] 32.8 g/dL 32-36 [facility] Mean platelet volume determi nationOrdered By: Eduin Watts on 2025 Platelet mean volume (Bld) [Entitic vol] 10.3 fL 6.2-12.0 [facility] Monocyte percentageOrdered B y: Eduin Watts on 2025 Monocytes/100 WBC (Bld) 10.0 % 0-10 [facility] Neutrophil percentageOrdered By: Eduin Watts on 2025 Neutrophils/100 WBC (Bld) 65.5 % 47-70 [facility] Nucleated red blood cell per centageOrdered By: Eduin Watts on 2025 Nucleated RBC/100 WBC (Bld) [Ratio] 0 % 0-5 [facility] Platelet countOrdered By: Santos Watts on 2025 Platelets (Bld) [#/Vol] 225 10*3/uL 150-450 [facility] Potassium measurement (mass/ volume)Ordered By: Eduin Watts on 2025 Potassium (Unsp spec) [Mass/Vol] 4.5 mmol/L 3.3-5.1 [facility] RBC Auto (Bld) [#/Vol]Ordere d By: Eduin Watts on 2025 RBC (Bld) [#/Vol] 4.33 10*6/uL Low 4.6-6.2 [facility] Serum creatinine measurement (mass/volume)Ordered By: Eduin Watts on 2025 Creatinine [Mass/Vol] 1.04 mg/dL 0.70-1.20 [facility] Serum glucose measurement (m ass/volume)Ordered By: Eduin Watts on 2025 Glucose [Mass/Vol] 88 mg/dL 70-99 [facility] Serum or plasma calcium linda urement (mass/volume)Ordered By: Eduin Watts on 2025 Calcium [Mass/Vol] 9.1 mg/dL 7.6-11.0 [facility] Serum or plasma urea nitroge n measurement (mass/volume)Ordered By: Eduin Watts on 2025 Urea nitrogen [Mass/Vol] 19 mg/dL 4-19 [facility] Sodium levelOrdered By: Eduin Watts on 2025 Sodium [Moles/Vol] 138 mmol/L 133-145 [facility] TSH DL <= 0.005 mIU/L QnOrde red By: Eduin Watts on 2025 TSH Qn 0.910 uIU/mL 0.300-4.200 [facility] Thyroid Stim Hormone (TSH)on 2025 TSH 0.910 uIU/mL Normal 0.300-4.200 [facility] Comment on above: Performed By: #### L 500.2500, L100.0100, L501.9520 ####[facility] [address] [place], [place], [id number] White blood cell (WBC) count Ordered By: Eduin Watts on 2025 WBC (Bld) [#/Vol] 4.2 10*3/uL Low 4.4-11.0 [facility] Microalb:Creat Ratio,Random URon 03-11-2025 MALB:CREAT 15.9 mg/g CRE Normal [facility] Comment on above: Result Comment: AMENDED REPORT 03/11/25 1037 MALB:CREAT previously reported as: 159.2 mg/g CRE Performed By: #### L 502.0250 ####[facility] [address] [place], [address] Cardiology Visit Reporton Cardiology Visit Report [facility] [address] [place] [address] OFFICE VISIT Date of Service: 02/17/25 MR#: [id number] Acct: [id number] Name: ELOINA TOVAR Rep #: [id number] : 1960 Provider: FAVIAN horton Age/Sex: 64/M Location: [facility] Status: Signed HPI HPI History of Present Illness Details: This is a 64-year-old man who presents to the office today for a cardiovascular follow-up visit. He has a history of hypertension, seizure disorder and no previously documented coronary artery disease. He tells me that he recently was up in [place] and was apparently diagnosed with atrial fibrillation. However his EKGs do not demonstrate any evidence of atrial fibrillation. As part of his work-up he had a myocardial perfusion stress test which demonstrated no evidence of ischemia but a possible prior infarct involving the apex. Apical hypokinesis was noted on the stress test. His electrocardiogram from February 2021 demonstrates normal sinus rhythm with a rate of 66 bpm. His 30 day event monitor from September 2022 demonstrated sinus rhythm with 1st degree AV block with a heart rate of 63bpm. VE<1%, SVE 3%, AFIB 0%. He underwent a stress test in October 2022 which was negative for ischemia. Patient presented to the emergency room on 05/04/2023 with complaints of increased shortness of breath, diaphoresis, and chest pain. His troponins were noted to be negative. He was admitted to PCU for further evaluation. A cardiac CT was obtained. This was negative for dissecting aneurysm. He was treated with isosorbide. He denies chest, arm, jaw, or neck discomfort. He denies palpitations. He states bilateral lower extremity edema. He denies claudication. He states shortness of breath with activity. This is intermittent. He denies shortness of breath at rest. He denies orthopnea or PND. He denies chronic cough. He denies significant, sudden weight gain. He denies he acknowledges lightheadedness and dizziness. This is intermittent. He notes this with ambulation that he attributes to his right foot dragging. He denies near-syncope or syncope. He denies blood in urine, blood in stool, or epistaxis. He denies fever with chills. He denies myalgia. He states weakness and fatigue. His exercise level has remained stable. 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 Is patient in pain?: No Allergies meperidine HCl (From Demerol) Allergy (Verified 02/17/25 12:54) Unknown Milk Containing Products (Dairy) (Milk Containing Products) Allergy (Verified 02/17/25 12:54) Anaphylaxis penicillin G Allergy (Verified 02/17/25 12:54) Hives wheat Allergy (Verified 02/17/25 12:54) Other potassium Adverse Reaction (Verified 02/17/25 12:54) Other Ejection fraction %: 45 Have you fallen in the past year?: Yes Nurse's Note: cannot confirm medications patient is guessing at names of medications [facility] Medical History (Updated 02/17/25 @ 13:22 by Carrillo Carreon CREDIT ADMINISTRATION OFFICER, CREDIT ADMINISTRATION OFFICER-C) DM type 2 (diabetes mellitus, type 2) JOVEL (dyspnea on exertion) Hyperlipidemia Essential (primary) hypertension History of colon cancer Arthritis AA (alcohol abuse) Morbid obesity COPD (chronic obstructive pulmonary disease) History of suicide attempt History of DVT (deep vein thrombosis) Migraine headache Seizure disorder Neuropathy H/O: substance abuse History of ETOH abuse Necrotizing soft tissue infection Abscess of right leg Dog bite of right calf Post traumatic stress disorder (PTSD) Bronchial asthma Personal hx-rectal/anal malignancy Esophageal reflux Epilepsy undetermined as to focal or generalized, intractable Chronic pain syndrome Surgical History History of left heart catheterization (03/1997) History of cervical spinal surgery History of bariatric surgery (2000) Social History Smoking Status: Never smoker Electronic Cigarette Use: not used alcohol intake: former year quit: 1999 substance use type: former substance user Date of last use: 20 years, Fentynal 4 years, crack/cocaine, heroin, painkillers and other details: LSD ROS Const Const: Positive for fatigue and weakness; Negative for headache(s) or frequent falls Eyes Eyes: Negative for blurry vision ENT ENT: Positive for dizziness; Negative for headache(s) or Nosebleed/epistaxis Cardio Chest Pain: No Palpitations: No Edema: Bilateral Muscle aches with walking: None Resp Respiratory: Po (more content not included)... Normal [facility] Comprehensive Metabolic Prof ilon 02-06-2025 Albumin [Mass/Vol] 4.2 g/dL Normal 3.4-4.8 [facility] Comment on above: Performed By: #### L 506.0400, L500.4100, L501.96366, L500.4050, L501.9520 #### [facility] [address] [place], [address] Albumin/Globulin [Mass ratio] 1.6 {ratio} Normal 0.9-2.4 [facility] Comment on above: Performed By: #### L 506.0400, L500.4100, L501.06251, L500.4050, L501.9520 #### [facility] [address] [place], [address] ALK PHOS 86 U/L Normal 40-129 [facility] Comment on above: Performed By: #### L 506.0400, L500.4100, L501.00978, L500.4050, L501.9520 #### [facility] [address] [place], [address] ALT [Catalytic activity/Vol] 14 U/L Normal <=46 [facility] Comment on above: Performed By: #### L 506.0400, L500.4100, L501.66220, L500.4050, L501.9520 #### [facility] [address] [place], [address] AST [Catalytic activity/Vol] 26 U/L Normal <=37 [facility] Comment on above: Performed By: #### L 506.0400, L500.4100, L501.57636, L500.4050, L501.9520 #### [facility] [address] [place], [address] Bilirubin [Mass/Vol] 0.29 mg/dL Normal 0.00-1.30 [facility] [facility] Comment on above: Performed By: #### L 506.0400, L500.4100, L501.81991, L500.4050, L501.9520 #### [facility] [address] [place], [address] BUN/CRE 19.7 RATIO Normal 10-20 [facility] Comment on above: Performed By: #### L 506.0400, L500.4100, L501.61712, L500.4050, L501.9520 #### [facility] [address] [place], [address] Calcium [Mass/Vol] 8.6 mg/dL Normal 7.6-11.0 [facility] Comment on above: Performed By: #### L 506.0400, L500.4100, L501.23444, L500.4050, L501.9520 #### [facility] [address] [place], [address] Chloride [Moles/Vol] 102 mmol/L Normal 98-[address] [facility] Comment on above: Performed By: #### L 506.0400, L500.4100, L501.42880, L500.4050, L501.9520 #### [facility] [address] [place], [address] CO2 [Moles/Vol] 22.4 mmol/L Normal 21.0-32.0 [facility] Comment on above: Performed By: #### L 506.0400, L500.4100, L501.90934, L500.4050, L501.9520 #### [facility] [address] [place], [address] Creatinine [Mass/Vol] 1.05 mg/dL Normal 0.70-1.20 [facility] Comment on above: Performed By: #### L 506.0400, L500.4100, L501.81402, L500.4050, L501.9520 #### [facility] [address] [place], [address] GAP 12 Normal 5-15 [facility] Comment on above: Performed By: #### L 506.0400, L500.4100, L501.74872, L500.4050, L501.9520 #### [facility] [address] [place], [address] GFR/1.73 sq M.predicted among non-blacks MDRD (S/P/Bld) [Vol rate/Area] 79 mL/min/{1.73_m2} Normal >60 [facility] Comment on above: Result Comment: mL/m in/1.73m2 CKD-EPI Creatinine Equation (2020) Performed By: #### L 506.0400, L500.4100, L501.70364, L500.4050, L501.9520 #### [facility] [address] [place], [address] Globulin (S) [Mass/Vol] 2.7 g/dL Normal 2.2-4.2 [facility] Comment on above: Performed By: #### L 506.0400, L500.4100, L501.79609, L500.4050, L501.9520 #### [facility] [address] [place], [address] Glucose [Mass/Vol] 86 mg/dL Normal 70-99 [facility] Comment on above: Performed By: #### L 506.0400, L500.4100, L501.99346, L500.4050, L501.9520 #### [facility] [address] [place], [address] Potassium [Moles/Vol] 4.5 mmol/L Normal 3.3-5.1 [facility] Comment on above: Performed By: #### L 506.0400, L500.4100, L501.91493, L500.4050, L501.9520 #### [facility] [address] [place], [address] Sodium [Moles/Vol] 136 mmol/L Normal 133-145 [facility] Comment on above: Performed By: #### L 506.0400, L500.4100, L501.87692, L500.4050, L501.9520 #### [facility] [address] [place], [address] T PROT 6.9 g/dL Normal 5.9-8.4 [facility] Comment on above: Performed By: #### L 506.0400, L500.4100, L501.05124, L500.4050, L501.9520 #### [facility] [address] [place], [address] Urea nitrogen [Mass/Vol] 21 mg/dL High 4-19 [facility] Comment on above: Performed By: #### L 506.0400, L500.4100, L501.96306, L500.4050, L501.9520 #### [facility] [address] [place], [address] Free T3on 02-06-2025 Free T3 [Mass/Vol] 2.3 pg/mL Normal 2.18-3.98 [facility] Comment on above: Performed By: #### L 506.0400, L500.4100, L501.02509, L500.4050, L501.9520 #### [facility] [address] [place], [address] Lipid Profileon 02-06-2025 CHOL:HDL 2.82 Normal [facility] Comment on above: Performed By: #### L 506.0400, L500.4100, L501.25616, L500.4050, L501.9520 #### [facility] [address] [place], [address] Cholesterol [Mass/Vol] 159 mg/dL Normal <=200 [facility] Comment on above: Result Comment: Chol esterol level, Desirable <200 mg/dL Borderline high cholesterol 200-239 mg/dL High cholesterol >=240 mg/dL Recommendations of the NCEP Adult Treatment Panel for the following risk-cutoff thresholds for the [place] Citizen [place] population. Performed By: #### L 506.0400, L500.4100, L501.53393, L500.4050, L501.9520 #### [facility] [address] [place], [address] Cholesterol in HDL [Mass/Vol] 56 mg/dL Normal [facility] Comment on above: Result Comment: Alexia onal Cholesterol Education Program (NCEP) guidelines: <40 mg/dL: Low HDL-cholesterol (major risk factor for CHD) >= 60 mg/dL: High HDL-cholesterol (negative risk factor for CHD) HDL-cholesterol is affected by a number of factors, e.g. smoking, exercise, hormones, sex and age. Performed By: #### L 506.0400, L500.4100, L501.71102, L500.4050, L501.9520 #### [facility] [address] [place], [address] Cholesterol in LDL [Mass/Vol] 85 mg/dL Normal [facility] Comment on above: Result Comment: Bord lxoaii=184-636 mg/dL Higher Vfyo=427 mg/dL or greater Performed By: #### L 506.0400, L500.4100, L501.35585, L500.4050, L501.9520 #### [facility] [address] [place], [address] Cholesterol in VLDL [Mass/Vol] 18 mg/dL Normal 5-40 [facility] Comment on above: Performed By: #### L 506.0400, L500.4100, L501.58533, L500.4050, L501.9520 #### [facility] [address] [place], [address] Triglyceride [Mass/Vol] 88 mg/dL Normal [facility] Comment on above: Result Comment: The drugs N-Acetylcysteine and Metamizole may falsely depress this assay. Normal range: <150 mg/dL Borderline High: 150-199 mg/dL High: 200-499 mg/dL Very High: >500 mg/dL Performed By: #### L 506.0400, L500.4100, L501.11545, L500.4050, L501.9520 #### [facility] [address] [place], [address] Random urine creatinine linda urement (mass/volume)Ordered By: Eduin Watts on 02-06-2025 Creatinine Unsp time (U) [Mass/Vol] 196.00 mg/dL 39.00-259.00 [facility] T4 Free Directon 02-06-2025 T4 FREE DIRECT 0.90 ng/dL Normal 0.76-1.46 [facility] Comment on above: Performed By: #### L 506.0400, L500.4100, L501.89623, L500.4050, L501.9520 #### [facility] [address] [facility] [place], [address] Thyroid Stim Hormone (TSH)on 02-06-2025 TSH 0.406 uIU/mL Normal 0.300-4.200 [facility] Comment on above: Performed By: #### L 506.0400, L500.4100, L501.63834, L500.4050, L501.9520 #### [facility] [address] [facility] [place], [address] Urine albumin measurement [facility] detection limit of 20 mg/L or less (mass/volume)Ordered By: Eduin Watts on 02-06-2025 Albumin DL <= 20 mg/L (U) [Mass/Vol] 31.2 mg/L NO RANGE EST. [facility] Anion gap in Serum or Plasma Ordered By: Eduin Watts on 02-05-2025 Anion gap [Moles/Vol] 12 mmol/L 5- [facility] BUN/creatinine ratioOrdered By: Eduin Watts on 02-05-2025 Urea nitrogen/Creatinine [Mass ratio] 19.7 mg/mg 10-20 [facility] Bilirubin, totalOrdered By: Eduin Wtats on 02-05-2025 Bilirubin [Mass/Vol] 0.29 mg/dL 0.00-1.[address] [facility] Calculated very low density lipoprotein (VLDL) cholesterol measurementOrdered By: Eduin Watts on 02-05-2025 Calculated very low density lipoprotein (VLDL) cholesterol measurement 18 mg/dL 5- [facility] Carbon dioxide, total [Moles /volume] in Central venous bloodOrdered By: Eduin Watts on 02-05-2025 CO2 [Moles/Vol] 22.4 mmol/L 21.0-32.0 [facility] Chloride assayOrdered By: Santos Watts on 02-05-2025 Chloride [Moles/Vol] 102 mmol/L 98-[address] [facility] Free K4Shcmhkf By: Eduin garrison on 02-05-2025 Free T3 [Mass/Vol] 2.3 pg/mL 2.18-3.98 [facility] Glomerular filtration rate ( GFR) estimation/1.73 sq m using serum, plasma, or whole bOrdered By: Eduin Watts on 02-05-2025 GFR/1.73 sq M.predicted among non-blacks MDRD (S/P/Bld) [Vol rate/Area] 79 mL/min/{1.73_m2} >60 [facility] Comment on above: mL/min/1.73m2 CKD-EP I Creatinine Equation (2020) LDL calc ser/plasOrdered By: Eduin Watts on 02-05-2025 Cholesterol in LDL [Mass/Vol] 85 mg/dL [facility] Comment on above: Bqlynyeeat=036-455 m g/dL & Higher Bxbd=241 mg/dL or greater Laboratory - Chemistry and C hemistry - challengeOrdered By: Eduin Watts on 02-05-2025 AST [Catalytic activity/Vol] 26 U/L <38 [facility] Potassium measurement (mass/ volume)Ordered By: Eduin Watts on 02-05-2025 Potassium (Unsp spec) [Mass/Vol] 4.5 mmol/L 3.3-5.1 [facility] Screening total cholesterol/ high density lipoprotein (HDL) cholesterol ratioOrdered By: Eduin Watts on 02-05-2025 Cholesterol.total/Choles terol in HDL [Mass ratio] 2.82 {ratio} [facility] Serum creatinine measurement (mass/volume)Ordered By: Eduin Watts on 02-05-2025 Creatinine [Mass/Vol] 1.05 mg/dL 0.70-1.20 [facility] Serum globulin measurementOr dered By: Eduin Watts on 02-05-2025 Globulin (S) [Mass/Vol] 2.7 g/dL 2.2-4.2 [facility] Serum glucose measurement (m ass/volume)Ordered By: Eduin Watts on 02-05-2025 Glucose [Mass/Vol] 86 mg/dL 70-99 [facility] Serum or plasma alanine scott otransferase (ALT) measurementOrdered By: Eduin Watts on 02-05-2025 ALT [Catalytic activity/Vol] 14 U/L <47 [facility] Serum or plasma albumin linda urement (mass/volume)Ordered By: Eduin Watts on 02-05-2025 Albumin [Mass/Vol] 4.2 g/dL 3.4-4.8 [facility] Serum or plasma albumin/glob ulin mass ratioOrdered By: Eduin Watts on 02-05-2025 Albumin/Globulin [Mass ratio] 1.6 {ratio} 0.9-2.4 [facility] Serum or plasma alkaline meghna sphatase measurementOrdered By: Eduin Watts on 02-05-2025 ALP [Catalytic activity/Vol] 86 U/L 40-129 [facility] Serum or plasma calcium linda urement (mass/volume)Ordered By: Eduin Watts on 02-05-2025 Calcium [Mass/Vol] 8.6 mg/dL 7.6-11.0 [facility] Serum or plasma cholesterol in HDL measurement (mass/volume)Ordered By: Eduin Watts on 02-05-2025 Cholesterol in HDL [Mass/Vol] 56 mg/dL >40 [facility] Comment on above: National Cholesterol Education Program (NCEP) guidelines:<40 mg/dL: Low HDL-cholesterol (major risk factor for CHD)>= 60 mg/dL: High HDL-cholesterol (negative risk factor for CHD)HDL-cholesterol is affected by a number of factors, e.g. smoking, exercise, hormones, sex and age. Serum or plasma cholesterol measurement (mass/volume)Ordered By: Eduin Watts on 02-05-2025 Cholesterol [Mass/Vol] 159 mg/dL <201 [facility] Comment on above: Cholesterol level, D esirable <200 mg/dLBorderline high cholesterol 200-239 mg/dLHigh cholesterol >=240 mg/dLRecommendations of the NCEP Adult Treatment Panel for the following risk-cutoff thresholds for the [place] Citizen [place] population. Serum or plasma urea nitroge n measurement (mass/volume)Ordered By: Eduin Watts on 02-05-2025 Urea nitrogen [Mass/Vol] 21 mg/dL High 4-19 [facility] Sodium levelOrdered By: Eduin Watts on 02-05-2025 Sodium [Moles/Vol] 136 mmol/L 133-145 [facility] T4 freeOrdered By: Eduin garrison on 02-05-2025 Free T4 [Mass/Vol] 0.90 ng/dL 0.76-1.46 [facility] TSH DL <= 0.005 mIU/L QnOrde red By: Eduin Watts on 02-05-2025 TSH Qn 0.406 uIU/mL 0.300-4.200 [facility] Total proteinOrdered By: Harleen Watts on 02-05-2025 Protein [Mass/Vol] 6.9 g/dL 5.9-8.4 [facility] Triglycerides measurementOrd ered By: Eduin Watts on 02-05-2025 Triglyceride [Mass/Vol] 88 mg/dL <199 [facility] Comment on above: The drugs N-Acetylcy steine and Metamizole may falsely depress this assay. Normal range: <150 mg/dLBorderline High: 150-199 mg/dLHigh: 200-499 mg/dLVery High: >500 mg/dL CNOVon 12-07-2024 CNOV Office Visit (WSTR ) ELOINA TOVAR ([id number]) 1960 M Date Time Provider Department 12/07/24 11:00 AM [facility] During your visit today, we recorded the following information about you: Temperature Pulse Respiration Blood pressure 97 degrees 60/minute 20/minute 128/90 Weight 116 kg Nurys Salazar APRN.SYSTEM DISPATCHER 12/07/2024 11:58 AM Signed This note was created using NoteWriter. Subjective Eloina Tovar is a 64 year old male. HPI For about a week pt feels as though his bilateral ears are impacted. Review of Systems Constitutional: Negative for fever. HENT: Negative for congestion and ear pain. Respiratory: Negative for cough. Objective BP 128/90 Pulse 60 Temp 36.1 ?C (97 ?F) Resp 20 Wt 116 kg (255 lb 11.7 oz) SpO2 97% BMI 38.88 kg/m? Physical Exam Vitals and nursing note reviewed. Constitutional: General: He is not in acute distress. Appearance: Normal appearance. He is not ill-appearing. HENT: Head: Normocephalic. Right Ear: There is impacted cerumen. Left Ear: There is impacted cerumen. Mouth/Throat: Mouth: Mucous membranes are moist. Eyes: Conjunctiva/sclera: Conjunctivae normal. Cardiovascular: Rate and Rhythm: Normal rate and regular rhythm. Pulmonary: Effort: Pulmonary effort is normal. Breath sounds: Normal breath sounds. Musculoskeletal: General: Normal range of motion. Cervical back: Normal range of motion. Skin: General: Skin is warm and dry. Neurological: General: No focal deficit present. Mental Status: He is alert. Psychiatric: Mood and Affect: Mood normal. Behavior: Behavior normal. Assessment and Plan ASSESSMENT/PLAN: 1. Bilateral impacted cerumen - ICD9: 380.4, ICD10: H61.23 Nursing staff flushed out bilateral ears with good results. Bilateral tympanic membranes unremarkable on reevaluation. Patient discharged. Nurys Salazar APRN.CNP Allergies As of Date: 12/07/2024 Noted Allergy Reaction CHEESE 10/16/2016 14 - Other: See Comments DEMEROL (MEPERIDINE HCL) 07/18/2005 4 - Hives MILK 06/18/2013 7 - Swelling PENICILLINS 07/18/2005 4 - Hives POTASSIUM 06/24/2015 16 - Unknown Date Reviewed: 12/07/2024 Reviewed by: Nurys Salazar APRN.SYSTEM DISPATCHER - Fully Assessed Reason for Visit: Ear Problem [38] Cmt: Bilat ear pain, bilat ears are impacted with wax x 1 week Primary Visit Diagnosis:Bilateral impacted cerumen [H61.23] Prescriptions as of 12/07/2024 - ELIQUIS 5 mg tab(s) Take 1 tablet by mouth every 12 hours. - atorvastatin (LIPITOR) 40 mg tablet Take 1 tablet by mouth once daily. - buPROPion XL (WELLBUTRIN XL) 300 mg 24 hr tablet Take 1 tablet by mouth once daily. - carvedilol (COREG) 3.125 mg tablet Take 1 tablet by mouth every 12 hours. - escitalopram oxalate (LEXAPRO) 20 mg tablet Take 1 tablet by mouth once daily. - isosorbide mononitrate ER (IMDUR) 30 mg 24 hr tablet Take 1 tablet by mouth every 12 hours. - levothyroxine (SYNTHROID) 75 mcg tablet Take 1 tablet by mouth once daily. - meloxicam (MOBIC) 15 mg tablet Take 1 tablet by mouth once daily. - OXcarbazepine (TRILEPTAL) 300 mg tablet Take 1 tablet by mouth every 12 hours. - OXcarbazepine (TRILEPTAL) 150 mg tablet Take 1 tablet by mouth every 12 hours. - nitroglycerin sublingual (NITROQUICK) 0.4 mg SL tablet Dissolve 1 tablet under the tongue as needed. FOR CHEST PAIN. IF NO RELIEF CALL 911 - busPIRone (BUSPAR) 5 mg tablet Take 2 tablets by mouth three times daily. - levETIRAcetam ER (KEPPRA XR) 750 mg 24 hr tablet Take 2 tablets by mouth daily at bedtime. - folic acid-B6-B12 (FOLCAPS) 2.2-25-0.5 mg tab Take 1 tablet by mouth once daily. - rizatriptan (MAXALT) 10 mg tablet Take 10 mg by mouth as needed. May repeat in 2 hours if needed - fentaNYL 100 mcg/hr Apply 1 Patch as directed every 48 hours. - methylphenidate (RITALIN) 20 mg tablet Take 20 mg by mouth twice daily. - PULMICORT TURBUHALER 200 MCG/INHALATION BREATH ACTIVATED Inhale 2 Puffs as instructed once daily. - SEREVENT DISKUS 50 MCG/DOSE FOR INHALATION Inhale as instructed. - ALBUTEROL 90 MCG/ACTUATION AEROSOL INHALER Inhale as instructed. To be administered every ___ hours. See Epic Results Review or unit specific flow sheet for RT administration information. SHAKE WELL before using. Problem List As Of Date 12/07/2024 Noted Resolved POST OP S/P INTESTINAL BYPASS [Z98.0] 07/18/2005 PAIN ABDOMEN GENERALIZED [R10.84] 02/16/2006 Seizures (HCC) [R56.9] 06/06/2013 Type II or unspecified type diabetes mellitus w*06/06/2013 Extrinsic asthma, unspecified [J45.909] 06/06/2013 Esophageal reflux [K21.9] 06/06/2013 Chronic pain syndrome [G89.4] 06/06/2013 Memory loss [R41.3] 06/06/2013 Pain in joint, pelvic region and thigh [M25.559]06/06/2013 Other symptoms involving skin and integumentary*06/06/20 13 Other specified intestinal malabsorption [K90.8* (more content not included)... Normal [facility] Basic Metabolic Profile (BMP )on 10-11-2024 BUN/CRE 18.7 RATIO Normal - [facility] Comment on above: Performed By: #### L 501.9520, L500.2500, L501.21441, L501.0900, L506.0400 ####[facility] [address] [place], [address] CA,Total 9.2 mg/dL Normal 8.5-10.1 [facility] Comment on above: Performed By: #### L 501.9520, L500.2500, L501.14145, L501.0900, L506.0400 ####[facility] [address] [place], [address] Chloride [Moles/Vol] 106 mmol/L Normal 98-[address] [facility] Comment on above: Performed By: #### L 501.9520, L500.2500, L501.49805, L501.0900, L506.0400 ####[facility] [address] [place], [address] CO2 [Moles/Vol] 23.0 mmol/L Normal 21.0-32.0 [facility] Comment on above: Performed By: #### L 501.9520, L500.2500, L501.28187, L501.0900, L506.0400 ####[facility] [address] [place], [address] Creatinine [Mass/Vol] 1.23 mg/dL Normal 0.70-1.30 [facility] Comment on above: Result Comment: The validity of the calculated GFR GFRAA in patients over 70 years has not been determined. Clinical correlation is essential. Performed By: #### L 501.9520, L500.2500, L501.22365, L501.0900, L506.0400 ####[facility] [address] [place], [address] EST GFR - AA 76 mL/min Normal >60 [facility] Comment on above: Result Comment: Afri can Citizen [place] GFR Calc Performed By: #### L 501.9520, L500.2500, L501.76436, L501.0900, L506.0400 ####[facility] [address] [place], [address] GAP 6 Normal 5-15 [facility] Comment on above: Performed By: #### L 501.9520, L500.2500, L501.18862, L501.0900, L506.0400 ####[facility] [address] [place], [address] GFR/1.73 sq M.predicted among non-blacks MDRD (S/P/Bld) [Vol rate/Area] 63 mL/min/{1.73_m2} Normal >60 [facility] Comment on above: Result Comment: Non- GFR Calc Performed By: #### L 501.9520, L500.2500, L501.77978, L501.0900, L506.0400 ####[facility] [address] [place], [address] Glucose [Mass/Vol] 89 mg/dL Normal 74-106 [facility] Comment on above: Performed By: #### L 501.9520, L500.2500, L501.37807, L501.0900, L506.0400 ####[facility] [address] [place], [address] Potassium [Moles/Vol] 4.4 mmol/L Normal 3.5-5.1 [facility] Comment on above: Performed By: #### L 501.9520, L500.2500, L501.77158, L501.0900, L506.0400 ####[facility] [address] [place], [address] Sodium [Moles/Vol] 135 mmol/L Low 136-145 [facility] Comment on above: Performed By: #### L 501.9520, L500.2500, L501.56475, L501.0900, L506.0400 ####[facility] [address] [place], [address] Urea nitrogen [Mass/Vol] 23 mg/dL High 7-18 [facility] Comment on above: Performed By: #### L 501.9520, L500.2500, L501.54754, L501.0900, L506.0400 ####[facility] [address] [place], [address] Free T3on 10-11-2024 Free T3 [Mass/Vol] 1.8 pg/mL Low 2.18-3.98 [facility] Comment on above: Performed By: #### L 501.9520, L500.2500, L501.00962, L501.0900, L506.0400 ####[facility] [address] [place], [address] Protein+Creatinine Ratio,Uri neon 10-11-2024 PROT:CRE RATIO Normal 0-200 [facility] Comment on above: Result Comment: PT. UTO Performed By: #### L 501.9520, L500.2500, L501.70167, L501.0900, L506.0400 ####[facility] [address] [place], [address] PROTEIN,UR.RAN. Normal <11.9 [facility] Comment on above: Result Comment: PT. UTO Performed By: #### L 501.9520, L500.2500, L501.92051, L501.0900, L506.0400 ####[facility] [address] [place], [address] UR CREAT Normal NO RANGE EST. [facility] Comment on above: Result Comment: PT. UTO Performed By: #### L 501.9520, L500.2500, L501.76102, L501.0900, L506.0400 ####[facility] [address] [place], [address] T4 Free Directon 10-11-2024 T4 FREE DIRECT 0.82 ng/dL Normal 0.76-1.46 [facility] Comment on above: Performed By: #### L 501.9520, L500.2500, L501.06912, L501.0900, L506.0400 ####[facility] [address] [place], [address] Thyroid Stim Hormone (TSH)on 10-11-2024 TSH 0.858 uIU/mL Normal 0.358-3.740 [facility] Comment on above: Performed By: #### L 501.9520, L500.2500, L501.51776, L501.0900, L506.0400 ####[facility] [address] [place], [address] HIP, UNI W/ Pelvis 2-3 Views on 08-19-2024 HIP, UNI W/ Pelvis 2-3 Views [facility] Imaging Services [address] [place] [address] HIP, UNI W/ Pelvis 2-3 Views MR#: [id number] Acct: [id number] Name: ELOINA TOVAR Rep #: [id number] : 1960 M 64 From: Carlos quigley MD PCP: Dr. Eduin Watts MD Status: REG CLI Study: HIP, UNI W/ Pelvis 2-3 Views Date of Exam: 11/11 Exam# [id number] Ordering Dr: Eduin Watts MD [id number] STUDY: X-RAY - PELVIS AND RIGHT HIP REASON FOR EXAM: Male, 64 years old. Right-sided pain. TECHNIQUE: 3 views of the pelvis and hip. COMPARISON: Comparison is made with prior study dated July 31, 2020. FINDINGS: There is a non-specific bowel gas pattern. Sutures are seen in the right lower quadrant. Normal bilateral iliac wings, sacroiliac joints and visualized sacrum. Normal bilateral superior and inferior pubic rami. There are degenerative changes of the pubic symphysis with articular narrowing and sclerosis. Normal bilateral ischial tuberosities. Normal visualized femoral head. Normal acetabulum. There is moderate articular joint space narrowing of the hip. Mild degree of osteoarthritis of the left hip joint. RAD/HIP, UNI W/ Pelvis 2-3 Views IMPRESSION: Moderate degree of the osteoarthritis of the right hip joint. Electronically Signed: Carlos Shepherd MD at 9:00 EST Reading Location ID and State: [address] [place] [address] , Service support , CC: Dr. Eduin Watts MD Technology Instructor: Signed Normal [facility] Comprehensive Metabolic Prof ilon 06-10-2024 Albumin [Mass/Vol] 3.8 g/dL Normal 3.2-5.0 [facility] Comment on above: Performed By: #### L 501.59715, L501.9520, L500.4100, L500.4050, L506.0400 ####[facility] [address] [place], [address] Albumin/Globulin [Mass ratio] 1.1 {ratio} Normal 0.9-2.4 [facility] Comment on above: Performed By: #### L 501.05421, L501.9520, L500.4100, L500.4050, L506.0400 ####[facility] [address] [place], [address] ALK P 129 U/L High 45-117 [facility] Comment on above: Performed By: #### L 501.41766, L501.9520, L500.4100, L500.4050, L506.0400 ####[facility] [address] [place], [address] ALT [Catalytic activity/Vol] 18 U/L Normal 16-61 [facility] Comment on above: Performed By: #### L 501.03992, L501.9520, L500.4100, L500.4050, L506.0400 ####[facility] [address] [place], [address] AST [Catalytic activity/Vol] 23 U/L Normal 15-37 [facility] Comment on above: Performed By: #### L 501.40798, L501.9520, L500.4100, L500.4050, L506.0400 ####[facility] [address] [place], [address] Bilirubin [Mass/Vol] 0.50 mg/dL Normal 0.20-1.[address] [facility] Comment on above: Result Comment: For patients on eltrombopag therapy, use of Dimension [place] TBIL is not recommended. Performed By: #### L 501.41368, L501.9520, L500.4100, L500.4050, L506.0400 ####[facility] [address] [place], [address] BUN/CRE 14.1 RATIO Normal 10-20 [facility] Comment on above: Performed By: #### L 501.17254, L501.9520, L500.4100, L500.4050, L506.0400 ####[facility] [address] [place], [address] CA,Total 9.6 mg/dL Normal 8.5-10.1 [facility] Comment on above: Performed By: #### L 501.26680, L501.9520, L500.4100, L500.4050, L506.0400 ####[facility] [address] [place], [address] Chloride [Moles/Vol] 105 mmol/L Normal 98-[address] [facility] Comment on above: Performed By: #### L 501.46608, L501.9520, L500.4100, L500.4050, L506.0400 ####[facility] [address] [place], [address] CO2 [Moles/Vol] 24.0 mmol/L Normal 21.0-32.0 [facility] Comment on above: Performed By: #### L 501.98006, L501.9520, L500.4100, L500.4050, L506.0400 ####[facility] [address] [place], [address] Creatinine [Mass/Vol] 1.35 mg/dL High 0.70-1.30 [facility] Comment on above: Result Comment: The validity of the calculated GFR GFRAA in patients over 70 years has not been determined. Clinical correlation is essential. Performed By: #### L 501.48561, L501.9520, L500.4100, L500.4050, L506.0400 ####[facility] [address] [place], [address] EST GFR - AA 68 mL/min Normal >60 [facility] Comment on above: Result Comment: Afri can Citizen [place] GFR Calc Performed By: #### L 501.27282, L501.9520, L500.4100, L500.4050, L506.0400 ####[facility] [address] [place], [address] GAP 8 Normal 5-15 [facility] Comment on above: Performed By: #### L 501.24870, L501.9520, L500.4100, L500.4050, L506.0400 ####[facility] [address] [place], [address] GFR/1.73 sq M.predicted among non-blacks MDRD (S/P/Bld) [Vol rate/Area] 56 mL/min/{1.73_m2} Low >60 [facility] Comment on above: Result Comment: Non- GFR Calc Performed By: #### L 501.65262, L501.9520, L500.4100, L500.4050, L506.0400 ####[facility] [address] [place], [address] Globulin (S) [Mass/Vol] 3.6 g/dL Normal 2.2-4.2 [facility] Comment on above: Performed By: #### L 501.95183, L501.9520, L500.4100, L500.4050, L506.0400 ####[facility] [address] [place], [address] Glucose [Mass/Vol] 100 mg/dL Normal 74-106 [facility] Comment on above: Result Comment: Fast ing Glucose result from 100 to 125 mg/dL suggests IMPAIRED HOMEOSTASIS per A.D.A. criteria. Performed By: #### L 501.44787, L501.9520, L500.4100, L500.4050, L506.0400 ####[facility] [address] [place], [address] Potassium [Moles/Vol] 4.4 mmol/L Normal 3.5-5.1 [facility] Comment on above: Performed By: #### L 501.08454, L501.9520, L500.4100, L500.4050, L506.0400 ####[facility] [address] [place], [address] Sodium [Moles/Vol] 137 mmol/L Normal 136-145 [facility] Comment on above: Performed By: #### L 501.63671, L501.9520, L500.4100, L500.4050, L506.0400 ####[facility] [address] [place], [address] T PROT 7.4 g/dL Normal 6.4-8.2 [facility] Comment on above: Performed By: #### L 501.32850, L501.9520, L500.4100, L500.4050, L506.0400 ####[facility] [address] [place], [address] Urea nitrogen [Mass/Vol] 19 mg/dL High 7-18 [facility] Comment on above: Performed By: #### L 501.75708, L501.9520, L500.4100, L500.4050, L506.0400 ####[facility] [address] [place], [address] Free T3on 06-10-2024 Free T3 [Mass/Vol] 2.3 pg/mL Normal 2.18-3.98 [facility] Comment on above: Performed By: #### L 501.94743, L501.9520, L500.4100, L500.4050, L506.0400 ####[facility] [address] [place], [address] Lipid Profileon 06-10-2024 Cholesterol [Mass/Vol] 188 mg/dL Normal 200 [facility] Comment on above: Result Comment: <200 mg/dL Desirable 200-240 mg/dL Borderline >240 mg/dL High Risk Performed By: #### L 501.13083, L501.9520, L500.4100, L500.4050, L506.0400 ####[facility] [address] [place], [address] Cholesterol in HDL [Mass/Vol] 70 mg/dL Normal [facility] Comment on above: Result Comment: The drugs N-Acetylcysteine and Metamizole may falsely depress this assay. Reference Range HDL <40 mg/dL Low HDL Cholesterol HDL >or= 60 mg/dL High HDL Cholesterol Performed By: #### L 501.08333, L501.9520, L500.4100, L500.4050, L506.0400 ####[facility] [address] [place], [address] Cholesterol in LDL [Mass/Vol] 105 mg/dL Normal 0-130 [facility] Comment on above: Performed By: #### L 501.63941, L501.9520, L500.4100, L500.4050, L506.0400 ####[facility] [address] [place], [address] Cholesterol in VLDL [Mass/Vol] 13 mg/dL Normal 5-40 [facility] Comment on above: Performed By: #### L 501.22627, L501.9520, L500.4100, L500.4050, L506.0400 ####[facility] [address] [place], [address] Triglyceride [Mass/Vol] 65 mg/dL Normal [facility] Comment on above: Result Comment: The drugs N-Acetylcysteine and Metamizole may falsely depress this assay. Serum Triglycerides Reference Interval Normal <150 mg/dL Borderline high 150 - 199 mg/dL High 200 - 499 mg/dL Very High > or = 500 mg/dL Performed By: #### L 501.09583, L501.9520, L500.4100, L500.4050, L506.0400 ####[facility] [address] [place], [address] T4 Free Directon 06-10-2024 T4 FREE DIRECT 0.79 ng/dL Normal 0.76-1.46 [facility] Comment on above: Performed By: #### L 501.68945, L501.9520, L500.4100, L500.4050, L506.0400 ####[facility] [address] [place], [address] Thyroid Stim Hormone (TSH)on 06-10-2024 TSH 0.945 uIU/mL Normal 0.358-3.740 [facility] Comment on above: Performed By: #### L 501.22011, L501.9520, L500.4100, L500.4050, L506.0400 ####[facility] [address] [facility] [place], [address] 12 Lead EKGon 06-08-2024 12 Lead EKG [facility] Cardiovascular Services [address] [place] [address] 12 Lead EKG 06/08/24 1245 MR#: [id number] Acct: [id number] Name: ELOINA TOVAR Rep #: [id number] : 1960 64 From: Nimesh Lopez MD Attending Dr: Status: DEP ER Ordering Dr: Veto Da Silva MD Date: 06/08/24 Location: ED Sex: M C Admitted: Test Reason : CP/WEAKNESS Blood Pressure : / mmHG Vent. Rate : 064 BPM Atrial Rate : 064 BPM P-R Int : 220 ms QRS Dur : 092 ms QT Int : 440 ms P-R-T Axes : 045 -50 051 degrees QTc Int : 453 ms Sinus rhythm with 1st degree A-V block Left anterior fascicular block Minimal voltage criteria for LVH, may be normal variant ( R in aVL ) Nonspecific ST abnormality Abnormal ECG Confirmed by Nimesh Lopez ([id number]), order editor DARION FLORES ([id number]) on 06/10/2024 11:00:27 AM Referred By: Confirmed By:Nimesh Lopez 06/10/241099 Date Nimesh Lopez MD CC: Dr. Veto Da Silva MD; Dr. Eduin Watts MD Signed Normal [facility] Basic Metabolic Profile (BMP )on 06-08-2024 BUN/CRE 15.9 RATIO Normal -20 [facility] Comment on above: Order Comment: 'TROP ' Serial specimen #1, #2 or #3: 1 Performed By: #### L 500.2500, L100.0100, L501.4020 ####[facility] [address] [place], [address] CA,Total 9.1 mg/dL Normal 8.5-10.1 [facility] Comment on above: Order Comment: 'TROP ' Serial specimen #1, #2 or #3: 1 Performed By: #### L 500.2500, L100.0100, L501.4020 ####[facility] [address] [place], [address] Chloride [Moles/Vol] 110 mmol/L High 98-[address] [facility] Comment on above: Order Comment: 'TROP ' Serial specimen #1, #2 or #3: 1 Performed By: #### L 500.2500, L100.0100, L501.4020 ####[facility] [address] [place], [address] CO2 [Moles/Vol] 26.0 mmol/L Normal 21.0-32.0 [facility] Comment on above: Order Comment: 'TROP ' Serial specimen #1, #2 or #3: 1 Performed By: #### L 500.2500, L100.0100, L501.4020 ####[facility] [address] [place], [address] Creatinine [Mass/Vol] 1.13 mg/dL Normal 0.70-1.30 [facility] Comment on above: Order Comment: 'TROP ' Serial specimen #1, #2 or #3: 1 Result Comment: The validity of the calculated GFR GFRAA in patients over 70 years has not been determined. Clinical correlation is essential. Performed By: #### L 500.2500, L100.0100, L501.4020 ####[facility] [address] [place], [address] ECRCL 80.72 ml/min Normal [facility] Comment on above: Order Comment: 'TROP ' Serial specimen #1, #2 or #3: 1 Performed By: #### L 500.2500, L100.0100, L501.4020 ####[facility] [address] [place], [address] EST GFR - AA 84 mL/min Normal >60 [facility] Comment on above: Order Comment: 'TROP ' Serial specimen #1, #2 or #3: 1 Result Comment: Afri can Citizen [place] GFR Calc Performed By: #### L 500.2500, L100.0100, L501.4020 ####[facility] [address] [place], [address] GAP 5 Normal 5-15 [facility] Comment on above: Order Comment: 'TROP ' Serial specimen #1, #2 or #3: 1 Performed By: #### L 500.2500, L100.0100, L501.4020 ####[facility] [address] [place], [address] GFR/1.73 sq M.predicted among non-blacks MDRD (S/P/Bld) [Vol rate/Area] 69 mL/min/{1.73_m2} Normal >60 [facility] Comment on above: Order Comment: 'TROP ' Serial specimen #1, #2 or #3: 1 Result Comment: Non- GFR Calc Performed By: #### L 500.2500, L100.0100, L501.4020 ####[facility] [address] [place], [address] Glucose [Mass/Vol] 100 mg/dL Normal 74-106 [facility] Comment on above: Order Comment: 'TROP ' Serial specimen #1, #2 or #3: 1 Result Comment: Fast ing Glucose result from 100 to 125 mg/dL suggests IMPAIRED HOMEOSTASIS per A.D.A. criteria. Performed By: #### L 500.2500, L100.0100, L501.4020 ####[facility] [address] [place], [address] Potassium [Moles/Vol] 4.2 mmol/L Normal 3.5-5.1 [facility] Comment on above: Order Comment: 'TROP ' Serial specimen #1, #2 or #3: 1 Performed By: #### L 500.2500, L100.0100, L501.4020 ####[facility] [address] [place], [address] Sodium [Moles/Vol] 141 mmol/L Normal 136-145 [facility] Comment on above: Order Comment: 'TROP ' Serial specimen #1, #2 or #3: 1 Performed By: #### L 500.2500, L100.0100, L501.4020 ####[facility] [address] [place], [address] Urea nitrogen [Mass/Vol] 18 mg/dL Normal 7-18 [facility] Comment on above: Order Comment: 'TROP ' Serial specimen #1, #2 or #3: 1 Performed By: #### L 500.2500, L100.0100, L501.4020 ####[facility] [address] [place], [address] Brain/Head without Contrasto n 06-08-2024 Brain/Head without Contrast [facility] Imaging Services [address] [place] [address] Brain/Head without Contrast MR#: [id number] Acct: [id number] Name: ELOINA TOVAR Rep #: [id number] : 1960 M 64 From: Mariana Amos MD PCP: Dr. Eduin Watts MD Status: REG ER Study: Brain/Head without Contrast Date of Exam: 05/20 10/11 Exam# [id number] Ordering Dr: Veto Da Silva [place] [id number] INDICATION: head trauma on thinner EXAMINATION: CT BRAIN - CT Head or Brain W/O Contrast Injection TECHNIQUE: Multiple axial images were obtained of the head without intravenous contrast. The protocol utilizes one or more of the following dose reduction techniques: automated exposure control, adjustment of mA and/or kV according to patient size,and/or use of iterative reconstruction technique. IV Contrast dosage and agent: None. RADIATION DOSAGE (If Supplied By Facility): CTDIvol = ( 44.99 ) mGy, DLP = ( 812.98 ) mGycm COMPARISON: January 11, 2024 FINDINGS: BRAIN PARENCHYMA: No intra- or extra-axial hemorrhage. No evidence of acute infarct. No intracranial mass or mass effect. There is preservation of the osorio/white matter interface. Posterior fossa structures are unremarkable. CSF SPACES: Appropriate for age. No hydrocephalus. Basal cisterns are patent. CALVARIUM, SKULL BASE, PARANASAL SINUSES AND MASTOID AIR CELLS: Clear. No discrete lytic or blastic abnormalities. ORBITS: Both globes, extraocular muscles, optic nerves and retrobulbar fat appear unremarkable. ASPECTS Score for Acute Strokes: 10 CT/Brain/Head without Contrast IMPRESSION: No acute intracranial process. Electronically Signed: Mariana Amos MD at 14:29 EDT , CC: Dr. Veto Da Silva MD; Dr. Eduin Watts MD Technology Instructor: Signed Normal [facility] CBC W/Diff, Automatedon 09-2 Absolute Lymph 0.68 X10 3/uL Low 0.83-4.51 [facility] Comment on above: Performed By: #### L 500.2500, L100.0100, L501.4020 ####[facility] [address] [place], [address] Absolute Neut 3.1 X10 3/uL Normal 2.0-7.7 [facility] Comment on above: Performed By: #### L 500.2500, L100.0100, L501.4020 ####[facility] [address] [place], [address] Basophils/100 WBC (Bld) 0.9 % Normal 0-1 [facility] Comment on above: Performed By: #### L 500.2500, L100.0100, L501.4020 ####[facility] [address] [place], [address] Eosinophils/100 WBC (Bld) 3.5 % Normal 0-5 [facility] Comment on above: Performed By: #### L 500.2500, L100.0100, L501.4020 ####[facility] [address] [place], [address] Erythrocyte distribution width (RBC) [Ratio] 14.0 % Normal 11.6-14.6 [facility] Comment on above: Performed By: #### L 500.2500, L100.0100, L501.4020 ####[facility] [address] [place], [address] Hematocrit (Bld) [Volume fraction] 41.2 % Normal 40-54 [facility] Comment on above: Performed By: #### L 500.2500, L100.0100, L501.4020 ####[facility] [address] [place], [address] Hemoglobin (Bld) [Mass/Vol] 13.4 g/dL Normal 13.0-16.5 [facility] Comment on above: Performed By: #### L 500.2500, L100.0100, L501.4020 ####[facility] [address] [place], [address] IG% 0.200 Normal 0.0-0.9 [facility] Comment on above: Result Comment: IG% - Immature Granulocytes (promyelocytes, myelocytes and metamyelocytes) > 1% indicates that a LEFT SHIFT is Present. Performed By: #### L 500.2500, L100.0100, L501.4020 ####[facility] [address] [place], [address] Lymphocytes/100 WBC (Bld) 15.0 % Low 19-41 [facility] Comment on above: Performed By: #### L 500.2500, L100.0100, L501.4020 ####[facility] [address] [place], [address] MCH (RBC) [Entitic mass] 31.5 pg Normal 27.0-32.0 [facility] Comment on above: Performed By: #### L 500.2500, L100.0100, L501.4020 ####[facility] [address] [place], [address] MCHC (RBC) [Mass/Vol] 32.5 g/dL Normal 32-36 [facility] Comment on above: Performed By: #### L 500.2500, L100.0100, L501.4020 ####[facility] [address] [place], [address] MCV (RBC) [Entitic vol] 96.7 fL High 80-94 [facility] Comment on above: Performed By: #### L 500.2500, L100.0100, L501.4020 ####[facility] [address] [place], [address] Monocytes/100 WBC (Bld) 11.7 % High 0-10 [facility] Comment on above: Performed By: #### L 500.2500, L100.0100, L501.4020 ####[facility] [address] [place], [address] Neutrophils/100 WBC (Bld) 68.7 % Normal 47-70 [facility] Comment on above: Performed By: #### L 500.2500, L100.0100, L501.4020 ####[facility] [address] [place], [address] Nucleated RBC (Bld) [#/Vol] 0 10*3/uL Normal 0-5 [facility] Comment on above: Performed By: #### L 500.2500, L100.0100, L501.4020 ####[facility] [address] [place], [address] Platelet mean volume (Bld) [Entitic vol] 9.9 fL Normal 6.2-12.0 [facility] Comment on above: Performed By: #### L 500.2500, L100.0100, L501.4020 ####[facility] [address] [place], [address] Platelets (Bld) [#/Vol] 234 10*3/uL Normal 150-450 [facility] Comment on above: Performed By: #### L 500.2500, L100.0100, L501.4020 ####[facility] [address] [place], [address] RBC (Bld) [#/Vol] 4.26 10*6/uL Low 4.6-6.2 [facility] Comment on above: Performed By: #### L 500.2500, L100.0100, L501.4020 ####[facility] [address] [place], [address] RDW SD 49.4 fl High 35.1-43.9 [facility] Comment on above: Performed By: #### L 500.2500, L100.0100, L501.4020 ####[facility] [address] [place], [address] WBC (Bld) [#/Vol] 4.5 10*3/uL Normal 4.4-11.0 [facility] Comment on above: Performed By: #### L 500.2500, L100.0100, L501.4020 ####[facility] [address] [place], [address] Chest PA and Lateralon 06-08 Chest PA and Lateral [facility] Imaging Services [address] [place] [address] Chest PA and Lateral MR#: [id number] Acct: [id number] Name: ELOINA TOVAR Rep #: [id number] : 1960 M 64 From: Mariana Amos MD PCP: Dr. Eduin Watts MD Status: [facility] Study: Chest PA and Lateral Date of Exam: 06/08/24 Exam# [id number] Ordering Dr: Veto Da Silva [place] [id number] INDICATION: chest pain EXAMINATION/TECHNIQUE: X-RAY - XR Chest 2 Views COMPARISON: January 11, 2024 FINDINGS: LINES/DEVICES: None. LUNGS: No new consolidation, edema or effusion. There is a grossly stable curvilinear opacity within the left lower lung suggestive of atelectasis and/or scarring. No pneumothorax. MEDIASTINUM AND CARDIOVASCULAR STRUCTURES: Cardiac silhouette not enlarged. Central airways and mediastinal contour are unremarkable. BONES AND SOFT TISSUES: Unremarkable. RAD/Chest PA and Lateral IMPRESSION: No radiographic evidence of acute cardiopulmonary disease. Electronically Signed: Mariana Amos MD at 14:30 EDT , CC: Dr. Veto Da Silva MD; Dr. Eduin Watts MD Technology Instructor: Signed Normal [facility] Emergency Department Summary on 06-08-2024 Emergency Department Summary [facility] Medical Records Department [address] [place] [address] Emergency Department Summary 06/08/24 MR#: [id number] Acct: [id number] Name: ELOINA TOVAR Rep #: [id number] : 1960 64 From: Veto Da Silva MD PCP: Dr. Eduin Watts MD Status:DEP ER Location: ED HPI History of Present Illness Chief Complaint: Weakness Informant: patient Onset/Context/Timing Maximum Severity: Mild Narrative Narrative: 64-year-old male past medical history of hypertension, COPD, diabetes, DVT, MA no stents, stroke and known thoracic aortic aneurysm. He is on Eliquis. He says a week ago he was on a ladder doing drywall fell about 4 to 40 feet to the linoleum floor struck his head. He was not seen at that time. He said since has been tired and just breaking out in a sweat with no reason. Denies chest pain. Denies fever. Denies dysuria. Today said he felt so weak he felt he might pass out. He denies any vomiting or melena. Prior similar symptoms: No Recent Illness/Hospitalizatio n: No PFSH [facility] Medical History JOVEL (dyspnea on exertion) Hyperlipidemia Essential (primary) hypertension History of colon cancer Arthritis AA (alcohol abuse) Morbid obesity COPD (chronic obstructive pulmonary disease) History of suicide attempt History of DVT (deep vein thrombosis) Migraine headache Seizure disorder Neuropathy H/O: substance abuse History of ETOH abuse Necrotizing soft tissue infection Abscess of right leg Dog bite of right calf Post traumatic stress disorder (PTSD) Bronchial asthma Personal hx-rectal/anal malignancy Esophageal reflux Epilepsy undetermined as to focal or generalized, intractable DM type 2 (diabetes mellitus, type 2) Chronic pain syndrome Home Medications ???Medication ???Instructions ???Recorded ???Last Taken ???Type albuterol sulfate 90 mcg/actuation 1 - 2 puff inhalation Q4H PRN PRN 04/02/19 04/02/19 History aerosol inhaler Sob /Or Wheezing nitroglycerin 0.4 mg sublingual 0.4 mg sublingual Q5-15M PRN Chest 09/28/20 Unknown History tablet Pain oxcarbazepine 150 mg tablet 150 mg PO BID #60 tabs 09/29/20 Unknown Rx oxcarbazepine 300 mg tablet 300 mg PO BID 05/05/21 Unknown History apixaban 5 mg (74 tabs) tablets in 5 mg PO BID 11/07/22 Unknown History a dose pack ([employer] DVT-PE Treat 30D Start) bupropion HCl 150 mg tablet,12 hr 150 mg PO QHS 10/06/23 Unknown History sustained-release (Wellbutrin SR) carvedilol 3.125 mg tablet 3.125 mg PO BID #60 TABLETS 12/13/23 Unknown Rx atorvastatin 40 mg tablet 40 mg PO DAILY 03/25/24 Unknown History escitalopram oxalate 10 mg tablet 20 mg PO DAILY 03/25/24 Unknown History furosemide 40 mg tablet 40 mg PO .Q3Days 03/25/24 Unknown History levothyroxine 50 mcg capsule 50 mcg PO DAILY 03/25/24 Unknown History loperamide 2 mg capsule 2 mg PO Q6H PRN 03/25/24 Unknown History meloxicam 15 mg tablet 15 mg PO DAILY 03/25/24 Unknown History isosorbide mononitrate 30 mg 30 mg PO BID #180 TABLETS 05/03/24 Unknown Rx tablet,extended release 24 hr lisinopril 10 mg tablet 5 mg (1/2 x 10 mg) PO DAILY #45 06/04/24 Unknown Rx tabs Allergy/AdvReac Type Severity Reaction Status Date / Time meperidine HCl (From Demerol) Allergy Unknown Verified 06/08/24 12:28 Milk Containing Products Allergy Anaphylaxis Verified 06/08/24 12:28 (Dairy) (Milk Containing Products) penicillin G Allergy Hives Verified 09/21/24 12:28 wheat Allergy Other Verified 06/08/24 12:28 potassium AdvReac Other Verified 06/08/24 12:28 Surgical History History of left heart catheterization (03/1997) History of cervical spinal surgery History of bariatric surgery (2000) Social History Smoking Status: Never smoker Electronic Cigarette Use: not used alcohol intake: former year quit: 1999 substance use type: former substance user Date of last use: 20 years, Fentynal 4 years, crack/cocaine, heroin, painkillers and other details: LSD ROS ROS ED ROS Narrative Generalized weakness. Sweating. Constitutional Constitutional ED: Denies chills or fever(s) Eyes Eyes: Denies blurry vision ENT ENT ED: Denies ear pain Cardiovascular Cardiovascular: Denies chest pain Respiratory/Chest Respiratory/Chest: Denies cough Gastrointestinal Gastrointestinal: Denies abdominal pain, constipation, melena, nausea or vomiting Genitourinary Genitourinary ED: Denies dysuria or hematuria Musculoskeletal Musculoskeletal: Denies arthralgias Integumentary Denies abscess Neurologic Neurologic: Denies headache(s) Endocrine Endocrinology: Denies cold intolerance Hematologic/Lymphatic Hematologic/Lymphatic: Reports no (more content not included)... Normal [facility] L501.4020on 06-08-2024 TROPONIN-I HS 6 pg/mL Normal 3.0-78.0 [facility] Comment on above: Order Comment: 'TROP ' Serial specimen #1, #2 or #3: 1 Result Comment: Aquiles mena Note: New Test Units and Gender Specific Reference Ranges. For more information see Policy Stat Procedure [place] High Sensitivity Troponin (TNIH) and attachments. Performed By: #### L 500.2500, L100.0100, L501.4020 ####[facility] [address] [place], [address] Urinalysis, Completeon 06-08 BACTERIA Normal None Seen [facility] Comment on above: Order Comment: COLLE CTOR TO SPECIFY Result Comment: NO U RINE COLLECTED. PATIENT DEPARTED ED. Performed By: #### L 400.0001 ####[facility] [address] [place], [address] BILIRUBIN URINE Normal Negative [facility] Comment on above: Order Comment: LU CTOR TO SPECIFY Result Comment: NO U RINE COLLECTED. PATIENT DEPARTED ED. Performed By: #### L 400.0001 ####[facility] [address] [place], [address] Clarity (U) Normal Clear [facility] Comment on above: Order Comment: COLLE CTOR TO SPECIFY Result Comment: NO U RINE COLLECTED. PATIENT DEPARTED ED. Performed By: #### L 400.0001 ####[facility] [address] [place], [address] Color (U) Normal Yellow [facility] Comment on above: Order Comment: LU CTOR TO SPECIFY Result Comment: NO U RINE COLLECTED. PATIENT DEPARTED ED. Performed By: #### L 400.0001 ####[facility] [address] [place], [address] EPI,SQUAMOUS Normal 0-5 [facility] Comment on above: Order Comment: LU CTOR TO SPECIFY Result Comment: NO U RINE COLLECTED. PATIENT DEPARTED ED. Performed By: #### L 400.0001 ####[facility] [address] [place], [address] GLUCOSE, UR Normal Normal [facility] Comment on above: Order Comment: LU CTOR TO SPECIFY Result Comment: NO U RINE COLLECTED. PATIENT DEPARTED ED. Performed By: #### L 400.0001 ####[facility] [address] [place], [address] KETONE UR Normal Negative [facility] Comment on above: Order Comment: LU CTOR TO SPECIFY Result Comment: NO U RINE COLLECTED. PATIENT DEPARTED ED. Performed By: #### L 400.0001 ####[facility] [address] [place], [address] LEUK ESTERASE Normal Negative [facility] Comment on above: Order Comment: LU CTOR TO SPECIFY Result Comment: NO U RINE COLLECTED. PATIENT DEPARTED ED. Performed By: #### L 400.0001 ####[facility] [address] [place], [address] Mucus Ql (Urine sed) Normal [facility] Comment on above: Order Comment: LU CTOR TO SPECIFY Result Comment: NO U RINE COLLECTED. PATIENT DEPARTED ED. Performed By: #### L 400.0001 ####[facility] [address] [place], [address] Nitrite Ql (U) Normal Negative [facility] Comment on above: Order Comment: LU CTOR TO SPECIFY Result Comment: NO U RINE COLLECTED. PATIENT DEPARTED ED. Performed By: #### L 400.0001 ####[facility] [address] [facility] [address] OCCULT BLOOD-UR Normal Negative [facility] Comment on above: Order Comment: LU CTOR TO SPECIFY Result Comment: NO U RINE COLLECTED. PATIENT DEPARTED ED. Performed By: #### L 400.0001 ####[facility] [address] [facility] [address] pH UR Normal 5.0 - 8.0 [facility] Comment on above: Order Comment: LU CTOR TO SPECIFY Result Comment: NO U RINE COLLECTED. PATIENT DEPARTED ED. Performed By: #### L 400.0001 ####[facility] [address] [facility] [address] PROT DIPSTX Normal Negative [facility] Comment on above: Order Comment: LU CTOR TO SPECIFY Result Comment: NO U RINE COLLECTED. PATIENT DEPARTED ED. Performed By: #### L 400.0001 ####[facility] [address] [facility] [address] RBC Normal 0-5 [facility] Comment on above: Order Comment: UL CTOR TO SPECIFY Result Comment: NO U RINE COLLECTED. PATIENT DEPARTED ED. Performed By: #### L 400.0001 ####[facility] [address] [place], [address] SP.GR. DIPSTX Normal 1.002-1.030 [facility] Comment on above: Order Comment: COLLE CTOR TO SPECIFY Result Comment: NO U RINE COLLECTED. PATIENT DEPARTED ED. Performed By: #### L 400.0001 ####[facility] [address] [place], [address] UR Preservative Normal [facility] Comment on above: Order Comment: COLLE CTOR TO SPECIFY Result Comment: NO U RINE COLLECTED. PATIENT DEPARTED ED. Performed By: #### L 400.0001 ####[facility] [address] [place], [address] UROBILI Normal Normal [facility] Comment on above: Order Comment: COLLE CTOR TO SPECIFY Result Comment: NO U RINE COLLECTED. PATIENT DEPARTED ED. Performed By: #### L 400.0001 ####[facility] [address] [place], [address] WBC Normal 0-5 [facility] Comment on above: Order Comment: COLLE CTOR TO SPECIFY Result Comment: NO U RINE COLLECTED. PATIENT DEPARTED ED. Performed By: #### L 400.0001 ####[facility] [address] [place], [address] CREATININE FINGERSTICKon CREATININE WB < 1.0 Normal 0.70-1.30 [facility] Comment on above: Performed By: #### L 9100.0200 ####[facility] [address] [place], [address] EGFR WB > 60.0000 Normal >60 [facility] Comment on above: Performed By: #### L 9100.0200 ####[facility] [address] [place], [address] CTA Chest W/WO Contraston CTA Chest W/WO Contrast [facility] [address] [place], [place] [address] CTA Chest W/WO Contrast MR#: [id number] Acct: [id number] Name: ELOINA TOVAR Rep #: [id number] : 1960 M 64 From: Carlos quigley MD PCP: Dr. Eduin Watts MD Status: REG CLI Study: CTA Chest W/WO Contrast Date of Exam: 05/02/24 Exam# [id number] Ordering Dr: Chela Falk CREDIT ADMINISTRATION OFFICER CREDIT ADMINISTRATION OFFICER- C [id number] STUDY: CTA CHEST REASON FOR EXAM: Male, 64 years old. Dilated Aortic Root RADIATION DOSAGE (If Supplied By Facility): CTDIvol = ( 17.43 ) mGy, DLP = ( 616.47 ) mGycm TECHNIQUE: The examination was performed with the intravenous administration of IV 100mL [id number]-[id number]. Post-processing of the angiographic images was performed, with multiplanar reformation and 3D reconstruction. Individualized dose optimization techniques were used for this CT. COMPARISON: Comparison is made with prior study dated May 05, 2023. FINDINGS: Normal enhancement of the main pulmonary artery and right and left pulmonary arteries. Normal enhancement of the bilateral peripheral pulmonary arteries. There is no demonstrated pulmonary embolism. There is aneurysmal dilatation of the ascending aorta. The transverse diameter of the ascending aorta measures 42.5 mm''s. There is no demonstrated aortic dissection. Normal heart and pericardium. Normal mediastinum. Normal hilar regions. Normal visualized trachea and bronchi. The lungs are well expanded. Normal pulmonary parenchyma. Normal pleura. Normal chest wall structures. There are degenerative changes of thoracic spine. Increased kyphosis. Small hiatal hernia. Surgical clips are seen at the gastroesophageal junction. Embolization particles are seen in the splenic artery. CT/CTA Chest W/WO Contrast IMPRESSION: Dilated aortic root measuring 42.5 mm. It previously measured 40 mm. Electronically Signed: Carlos Shepherd MD at 12:47 EDT , CC: FAVIAN Falk; Dr. Eduin Watts MD Technology Instructor: Signed Normal [facility] Absolute lymphocyte countOrd ered By: Yolie Skinner on 01-11-2024 Lymphocytes Auto (Unsp spec) [#/Vol] 0.68 10*3/uL 0.83-4.51 [facility] Automated lymphocyte count a s percentage of total leukocytesOrdered By: Yolie Skinner on 01-11-2024 Lymphocytes/100 WBC Auto (Unsp spec) 9.0 % 19-41 [facility] Basophil percentageOrdered B y: Yolie Skinner on 01-11-2024 Basophils/100 WBC (Bld) 0.4 % 0-1 [facility] Chloride [Moles/Vol] 106 mmol/L 98-[address] [facility] Eosinophils/100 WBC (Bld) 0.9 % 0-5 [facility] Glucose [Mass/Vol] 99 mg/dL 74-106 [facility] Hemoglobin (Bld) [Mass/Vol] 13.0 g/dL 13.0-16.5 [facility] Monocytes/100 WBC (Bld) 8.1 % 0-10 [facility] Neutrophils (Bld) [#/Vol] 6.1 10*3/uL 2.0-7.7 [facility] Neutrophils/100 WBC (Bld) 81.3 % 47-70 [facility] Potassium [Moles/Vol] 4.6 mmol/L 3.5-5.1 [facility] Sodium [Moles/Vol] 137 mmol/L 136-145 [facility] WBC (Bld) [#/Vol] 7.5 10*3/uL 4.4-11.0 [facility] Determination of erythrocyte mean corpuscular volume (MCV)Ordered By: Yolie Skinner on 01-11-2024 MCV (RBC) [Entitic vol] 95.5 fL 80-94 [facility] Erythrocyte distribution wid th ratioOrdered By: Yolie Skinner on 01-11-2024 Erythrocyte distribution width (RBC) [Ratio] 13.7 % 11.6-14.6 [facility] Erythrocyte distribution wid th standard deviationOrdered By: Yolie Skinner on 01-11-2024 Erythrocyte distribution width (RBC) [Entitic vol] 47.5 fL 35.1-43.9 [facility] Hematocrit Auto (Bld) [Volum e fraction]Ordered By: Yolie Skinner on 01-11-2024 Hematocrit (Bld) [Volume fraction] 40.0 % 40-54 [facility] Immature granulocytes/100 WB C Auto (Bld)Ordered By: Yolie Skinner on 01-11-2024 Immature granulocytes/100 WBC (Bld) 0.300 % 0.0-0.9 [facility] Comment on above: IG% - Immature Granu locytes (promyelocytes, myelocytes and metamyelocytes) > 1% indicates that a LEFT SHIFT is Present. Laboratory - Chemistry and C hemistry - challengeOrdered By: Yolie Skinner on 01-11-2024 CO2 [Moles/Vol] 24.0 mmol/L 21.0-32.0 [facility] Urea nitrogen/Creatinine [Mass ratio] 13.6 mg/mg 10-20 [facility] Laboratory - Hematology and Cell countsOrdered By: Yolie Skinner on 01-11-2024 MCH (RBC) [Entitic mass] 31.0 pg 27.0-32.0 [facility] MCHC (RBC) [Mass/Vol] 32.5 g/dL 32-36 [facility] Nucleated RBC/100 WBC (Bld) [Ratio] 0 % 0-5 [facility] Platelet mean volume (Bld) [Entitic vol] 9.4 fL 6.2-12.0 [facility] Platelets (Bld) [#/Vol] 254 10*3/uL 150-450 [facility] No Panel InformationOrdered By: Yolie Skinner on 01-11-2024 Estimated Creatinine Clearance Calc 61.32 ml/min [facility] Estimated GFR (MDRD) Amer 59 mL/min >60 [facility] Comment on above: GFR Calc Estimated GFR (MDRD) Non-Af Amer 49 mL/min >60 [facility] Comment on above: Non- GFR Calc RBC Auto (Bld) [#/Vol]Ordere d By: Yolie Skinner on 01-11-2024 RBC (Bld) [#/Vol] 4.19 10*6/uL 4.6-6.2 [facility] Serum or plasma calcium linda urement (mass/volume)Ordered By: Yolie Skinner on 01-11-2024 Calcium [Mass/Vol] 8.9 mg/dL 8.5-10.1 [facility] Serum or plasma creatinine m easurement (mass/volume)Ordered By: Yolie Skinner on 01-11-2024 Creatinine [Mass/Vol] 1.54 mg/dL 0.70-1.30 [facility] Comment on above: The validity of the calculated GFR & GFRAA in patients over 70 years has not been determined. Clinical correlation is essential. Serum or plasma urea nitroge n measurement (mass/volume)Ordered By: Yolie Skinner on 01-11-2024 Urea nitrogen [Mass/Vol] 21 mg/dL 7-18 [facility] Thin prep Papanicolaou smear with manual screeningOrdered By: Yolie Skinner on 01-11-2024 Thin prep Papanicolaou smear with manual screening 7 5-15 [facility] Absolute lymphocyte countOrd ered By: Eduin Watts on 12-14-2023 Lymphocytes Auto (Unsp spec) [#/Vol] 0.94 10*3/uL 0.83-4.51 [facility] Automated lymphocyte count a s percentage of total leukocytesOrdered By: Eduin Watts on 12-14-2023 Lymphocytes/100 WBC Auto (Unsp spec) 19.0 % 19-41 [facility] Basophil percentageOrdered B y: Eduin Watts on 12-14-2023 Basophils/100 WBC (Bld) 1.0 % 0-1 [facility] Bilirubin [Mass/Vol] 0.40 mg/dL 0.20-1.[address] [facility] Comment on above: For patients on eltr ombopag therapy, use of Dimension [place] TBIL is not recommended. Chloride [Moles/Vol] 111 mmol/L 98-[address] [facility] Eosinophils/100 WBC (Bld) 1.8 % 0-5 [facility] Glucose [Mass/Vol] 105 mg/dL 74-106 [facility] Comment on above: Fasting Glucose resu lt from 100 to 125 mg/dL suggests IMPAIRED HOMEOSTASIS per A.D.A. criteria. Hemoglobin (Bld) [Mass/Vol] 13.8 g/dL 13.0-16.5 [facility] Monocytes/100 WBC (Bld) 11.7 % 0-10 [facility] Neutrophils (Bld) [#/Vol] 3.3 10*3/uL 2.0-7.7 [facility] Neutrophils/100 WBC (Bld) 66.3 % 47-70 [facility] Potassium [Moles/Vol] 4.6 mmol/L 3.5-5.1 [facility] Protein [Mass/Vol] 7.2 g/dL 6.4-8.2 [facility] Sodium [Moles/Vol] 141 mmol/L 136-145 [facility] WBC (Bld) [#/Vol] 4.9 10*3/uL 4.4-11.0 [facility] Determination of erythrocyte mean corpuscular volume (MCV)Ordered By: Eduin Watts on 12-14-2023 MCV (RBC) [Entitic vol] 96.6 fL 80-94 [facility] Erythrocyte distribution wid th ratioOrdered By: Eduin Watts on 12-14-2023 Erythrocyte distribution width (RBC) [Ratio] 12.9 % 11.6-14.6 [facility] Erythrocyte distribution wid th standard deviationOrdered By: Eduin Watts on 12-14-2023 Erythrocyte distribution width (RBC) [Entitic vol] 46.1 fL 35.1-43.9 [facility] Hematocrit Auto (Bld) [Volum e fraction]Ordered By: Eduin Watts on 12-14-2023 Hematocrit (Bld) [Volume fraction] 43.1 % 40-54 [facility] Immature granulocytes/100 WB C Auto (Bld)Ordered By: Eduin Watts on 12-14-2023 Immature granulocytes/100 WBC (Bld) 0.200 % 0.0-0.9 [facility] Comment on above: IG% - Immature Granu locytes (promyelocytes, myelocytes and metamyelocytes) > 1% indicates that a LEFT SHIFT is Present. Laboratory - Chemistry and C hemistry - challengeOrdered By: Eduin Watts on 12-14-2023 Albumin/Globulin [Mass ratio] 1.1 {ratio} 0.9-2.4 [facility] ALP [Catalytic activity/Vol] 99 U/L 45-117 [facility] ALT [Catalytic activity/Vol] 18 U/L 16-61 [facility] CO2 [Moles/Vol] 24.0 mmol/L 21.0-32.0 [facility] Cobalamin (Vitamin B12) [Mass/Vol] 428 pg/mL 211-911 [facility] Globulin (S) [Mass/Vol] 3.5 g/dL 2.2-4.2 [facility] Urea nitrogen/Creatinine [Mass ratio] 14.2 mg/mg 10-20 [facility] Laboratory - Hematology and Cell countsOrdered By: Eduin Watts on 12-14-2023 MCH (RBC) [Entitic mass] 30.9 pg 27.0-32.0 [facility] MCHC (RBC) [Mass/Vol] 32.0 g/dL 32-36 [facility] Nucleated RBC/100 WBC (Bld) [Ratio] 0 % 0-5 [facility] Platelet mean volume (Bld) [Entitic vol] 9.8 fL 6.2-12.0 [facility] Platelets (Bld) [#/Vol] 265 10*3/uL 150-450 [facility] No Panel InformationOrdered By: Eduin Watts on 12-14-2023 Estimated GFR (MDRD) Amer 65 mL/min >60 [facility] Comment on above: GFR Calc Estimated GFR (MDRD) Non-Af Amer 54 mL/min >60 [facility] Comment on above: Non- GFR Calc Free Triiodothyronine (T3) pg/dL 1.9 pg/mL 2.18-3.98 [facility] RBC Auto (Bld) [#/Vol]Ordere d By: Eduin Watts on 12-14-2023 RBC (Bld) [#/Vol] 4.46 10*6/uL 4.6-6.2 [facility] Serum or plasma calcium linda urement (mass/volume)Ordered By: Eduin Watts on 12-14-2023 Calcium [Mass/Vol] 8.9 mg/dL 8.5-10.1 [facility] Serum or plasma creatinine m easurement (mass/volume)Ordered By: Eduin Watts on 12-14-2023 Creatinine [Mass/Vol] 1.41 mg/dL 0.70-1.30 [facility] Comment on above: The validity of the calculated GFR & GFRAA in patients over 70 years has not been determined. Clinical correlation is essential. Serum or plasma thyroid stim ulating hormone (TSH) measurement (units/volume)Ordered By: Eduin Watts on 12-14-2023 TSH Qn 1.41 uIU/mL 0.358-3.74 [facility] Serum or plasma transthyreti n measurement (mass/volume)Ordered By: Eduin Watts on 12-14-2023 Prealbumin [Mass/Vol] 18.8 mg/dL 20.0-40.0 [facility] Serum or plasma urea nitroge n measurement (mass/volume)Ordered By: Eduin Watts on 12-14-2023 Urea nitrogen [Mass/Vol] 20 mg/dL 7-18 [facility] Thin prep Papanicolaou smear with manual screeningOrdered By: Eduin Watts on 12-14-2023 Thin prep Papanicolaou smear with manual screening 3.7 g/dL 3.2-5.0 [facility] Thin prep Papanicolaou smear with manual screening 24 U/L 15-37 [facility] Thin prep Papanicolaou smear with manual screening 6 5-15 [facility] Thin prep Papanicolaou smear with manual screening 0.66 ng/dL 0.76-1.46 [facility] Absolute lymphocyte countOrd ered By: Chela Falk on 10-06-2023 Lymphocytes Auto (Unsp spec) [#/Vol] 1.01 10*3/uL 0.83-4.51 [facility] Automated lymphocyte count a s percentage of total leukocytesOrdered By: Chela Falk on 10-06-2023 Lymphocytes/100 WBC Auto (Unsp spec) 17.6 % 19- [facility] Basophil percentageOrdered B y: Chela Falk on 10-06-2023 Basophils/100 WBC (Bld) 1.0 % 0-1 [facility] Chloride [Moles/Vol] 104 mmol/L 98-[address] [facility] Eosinophils/100 WBC (Bld) 1.6 % 0-5 [facility] Glucose [Mass/Vol] 101 mg/dL 74-106 [facility] Comment on above: Fasting Glucose resu lt from 100 to 125 mg/dL suggests IMPAIRED HOMEOSTASIS per A.D.A. criteria. Hemoglobin (Bld) [Mass/Vol] 14.4 g/dL 13.0-16.5 [facility] Monocytes/100 WBC (Bld) 11.0 % 0-10 [facility] Neutrophils (Bld) [#/Vol] 4.0 10*3/uL 2.0-7.7 [facility] Neutrophils/100 WBC (Bld) 68.6 % 47-70 [facility] Potassium [Moles/Vol] 4.8 mmol/L 3.5-5.1 [facility] Sodium [Moles/Vol] 137 mmol/L 136-145 [facility] WBC (Bld) [#/Vol] 5.8 10*3/uL 4.4-11.0 [facility] Determination of erythrocyte mean corpuscular volume (MCV)Ordered By: Chela Falk on 10-06-2023 MCV (RBC) [Entitic vol] 95.4 fL 80-94 [facility] Erythrocyte distribution wid th ratioOrdered By: Chela Falk on 10-06-2023 Erythrocyte distribution width (RBC) [Ratio] 13.2 % 11.6-14.6 [facility] Erythrocyte distribution wid th standard deviationOrdered By: Chela Falk on 10-06-2023 Erythrocyte distribution width (RBC) [Entitic vol] 46.6 fL 35.1-43.9 [facility] Hematocrit Auto (Bld) [Volum e fraction]Ordered By: Chela Falk on 10-06-2023 Hematocrit (Bld) [Volume fraction] 43.1 % 40-54 [facility] Immature granulocytes/100 WB C Auto (Bld)Ordered By: Chela Falk on 10-06-2023 Immature granulocytes/100 WBC (Bld) 0.200 % 0.0-0.9 [facility] Comment on above: IG% - Immature Granu locytes (promyelocytes, myelocytes and metamyelocytes) > 1% indicates that a LEFT SHIFT is Present. Laboratory - Chemistry and C hemistry - challengeOrdered By: Chela Falk on 10-06-2023 CO2 [Moles/Vol] 29.0 mmol/L 21.0-32.0 [facility] Natriuretic peptide B (Bld) [Mass/Vol] 33.4 pg/mL 0-100 [facility] Urea nitrogen/Creatinine [Mass ratio] 16.1 mg/mg 10-20 [facility] Laboratory - Hematology and Cell countsOrdered By: Chela Falk on 10-06-2023 MCH (RBC) [Entitic mass] 31.9 pg 27.0-32.0 [facility] MCHC (RBC) [Mass/Vol] 33.4 g/dL 32-36 [facility] Nucleated RBC/100 WBC (Bld) [Ratio] 0 % 0-5 [facility] Platelets (Bld) [#/Vol] 293 10*3/uL 150-450 [facility] No Panel InformationOrdered By: Chela Falk on 10-06-2023 Estimated GFR (MDRD) Amer 85 mL/min >60 [facility] Comment on above: GFR Calc Estimated GFR (MDRD) Non-Af Amer 70 mL/min >60 [facility] Comment on above: Non- GFR Calc Free Triiodothyronine (T3) pg/dL 1.7 pg/mL 2.18-3.98 [facility] Vitamin D 25-Hydroxy 29.1 ng/mL [facility] Comment on above: Vitamin D 25(OH) Sta tus Range Deficiency <20 ng/mL (50nmol/L) Insufficiency 20 - 30 ng/mL (50 - 75 nmol/L) Sufficiency 30 - 100 ng/mL (75 - 250 nmol/L) Toxicity >100 ng/mL (>250 nmol/L) Platelet mean volume Piotr-Ec ker (Bld) [Entitic vol]Ordered By: Chela Falk on 10-06-2023 Platelet mean volume (Bld) [Entitic vol] 10.0 fL 6.2-12.0 [facility] RBC Auto (Bld) [#/Vol]Ordere d By: Chela Falk on 10-06-2023 RBC (Bld) [#/Vol] 4.52 10*6/uL 4.6-6.2 [facility] Serum or plasma calcium linda urement (mass/volume)Ordered By: Chela Falk on 10-06-2023 Calcium [Mass/Vol] 9.4 mg/dL 8.5-10.1 [facility] Serum or plasma creatinine m easurement (mass/volume)Ordered By: Chela Falk on 10-06-2023 Creatinine [Mass/Vol] 1.12 mg/dL 0.70-1.30 [facility] Comment on above: The validity of the calculated GFR & GFRAA in patients over 70 years has not been determined. Clinical correlation is essential. Serum or plasma thyroid stim ulating hormone (TSH) measurement (units/volume)Ordered By: Chela Falk on 10-06-2023 TSH Qn 1.50 uIU/mL 0.358-3.74 [facility] Serum or plasma urea nitroge n measurement (mass/volume)Ordered By: Chela Falk on 10-06-2023 Urea nitrogen [Mass/Vol] 18 mg/dL 7-18 [facility] Thin prep Papanicolaou smear with manual screeningOrdered By: Chela Falk on 10-06-2023 Thin prep Papanicolaou smear with manual screening 4 5-15 [facility] Thin prep Papanicolaou smear with manual screening 0.67 ng/dL 0.76-1.46 [facility] Basophil percentageOrdered B y: Eduin Watts on 08-17-2023 Chloride [Moles/Vol] 105 mmol/L 98-[address] [facility] Cholesterol [Mass/Vol] 195 mg/dL <200 [facility] Comment on above: <200 mg/dL Desirable 200-240 mg/dL Borderline >240 mg/dL High Risk Glucose [Mass/Vol] 83 mg/dL 74-106 [facility] Potassium [Moles/Vol] 4.4 mmol/L 3.5-5.1 [facility] Sodium [Moles/Vol] 137 mmol/L 136-145 [facility] Triglyceride [Mass/Vol] 59 mg/dL <199 [facility] Comment on above: The drugs N-Acetylcy steine and Metamizole may falsely depress this assay.Serum Triglycerides Reference Interval Normal <150 mg/dL Borderline high 150 - 199 mg/dL High 200 - 499 mg/dL Very High > or = 500 mg/dL Laboratory - Chemistry and C hemistry - challengeOrdered By: Eduin Watts on 08-17-2023 CO2 [Moles/Vol] 27.0 mmol/L 21.0-32.0 [facility] Urea nitrogen/Creatinine [Mass ratio] 14.2 mg/mg 10-20 [facility] No Panel InformationOrdered By: Eduin Watts on 08-17-2023 Estimated GFR (MDRD) Amer 78 mL/min >60 [facility] Comment on above: GFR Calc Estimated GFR (MDRD) Non-Af Amer 65 mL/min >60 [facility] Comment on above: Non- GFR Calc Serum or plasma calcium linda urement (mass/volume)Ordered By: Eduin Watts on 08-17-2023 Calcium [Mass/Vol] 9.3 mg/dL 8.5-10.1 [facility] Serum or plasma cholesterol in HDL measurement (mass/volume)Ordered By: Eduin Watts on 08-17-2023 Cholesterol in HDL [Mass/Vol] 69 mg/dL >40 [facility] Comment on above: The drugs N-Acetylcy steine and Metamizole may falsely depress this assay. Reference Range HDL <40 mg/dL Low HDL Cholesterol HDL >or= 60 mg/dL High HDL Cholesterol Serum or plasma cholesterol in VLDL measurement (mass/volume)Ordered By: Eduin Watts on 08-17-2023 Cholesterol in VLDL [Mass/Vol] 12 mg/dL 5-40 [facility] Serum or plasma creatinine m easurement (mass/volume)Ordered By: Eduin Watts on 08-17-2023 Creatinine [Mass/Vol] 1.20 mg/dL 0.70-1.30 [facility] Comment on above: The validity of the calculated GFR & GFRAA in patients over 70 years has not been determined. Clinical correlation is essential. Serum or plasma low density lipoprotein (LDL) cholesterol measurement (mass/volume)Ordered By: Eduin Watts on 08-17-2023 Cholesterol in LDL [Mass/Vol] 114 mg/dL 0-130 [facility] Serum or plasma urea nitroge n measurement (mass/volume)Ordered By: Eduin Watts on 08-17-2023 Urea nitrogen [Mass/Vol] 17 mg/dL 7-18 [facility] Thin prep Papanicolaou smear with manual screeningOrdered By: Eduin Watts on 08-17-2023 Thin prep Papanicolaou smear with manual screening 5 5-15 [facility] Absolute lymphocyte countOrd ered By: Ramy Calvo on 05-05-2023 Lymphocytes Auto (Unsp spec) [#/Vol] 1.20 10*3/uL 0.83-4.51 [facility] Basophil percentageOrdered B y: Ramy Calvo on 05-05-2023 Basophils/100 WBC (Bld) 1.0 % 0-1 [facility] Chloride [Moles/Vol] 109 mmol/L 98-[address] [facility] Eosinophils/100 WBC (Bld) 3.1 % 0-5 [facility] Glucose [Mass/Vol] 79 mg/dL 74-106 [facility] Neutrophils (Bld) [#/Vol] 2.9 10*3/uL 2.0-7.7 [facility] Neutrophils/100 WBC (Bld) 58.9 % 47-70 [facility] Potassium [Moles/Vol] 4.9 mmol/L 3.5-5.1 [facility] Sodium [Moles/Vol] 140 mmol/L 136-145 [facility] WBC (Bld) [#/Vol] 4.9 10*3/uL 4.4-11.0 [facility] Blood erythrocytes count (nu mber/volume)Ordered By: Ramy Calvo on 05-05-2023 RBC (Bld) [#/Vol] 4.05 10*6/uL 4.6-6.2 [facility] Blood hemoglobin measurement (mass/volume)Ordered By: Ramy Calvo on 05-05-2023 Hemoglobin (Bld) [Mass/Vol] 13.0 g/dL 13.0-16.5 [facility] Blood lymphocytes/100 leukoc ytesOrdered By: Ramy Calvo on 05-05-2023 Lymphocytes/100 WBC (Bld) 24.5 % 19-41 [facility] Blood monocytes/100 leukocyt esOrdered By: Ramy Calvo on 05-05-2023 Monocytes/100 WBC (Bld) 12.3 % 0-10 [facility] Blood platelet mean volumeOr dered By: Ramy Calvo on 05-05-2023 Platelet mean volume (Bld) [Entitic vol] 9.7 fL 6.2-12.0 [facility] Determination of erythrocyte mean corpuscular volume (MCV)Ordered By: Ramy Calvo on 05-05-2023 MCV (RBC) [Entitic vol] 99.0 fL 80-94 [facility] Hematocrit Auto (Bld) [Volum e fraction]Ordered By: Ramy Calvo on 05-05-2023 Hematocrit (Bld) [Volume fraction] 40.1 % 40-54 [facility] Laboratory - Chemistry and C hemistry - challengeOrdered By: Ramy aClvo on 05-05-2023 CO2 [Moles/Vol] 27.0 mmol/L 21.0-32.0 [facility] Urea nitrogen/Creatinine [Mass ratio] 20.8 mg/mg 10-20 [facility] Laboratory - CoagulationOrde red By: Ramy Calvo on 05-05-2023 aPTT Coag (Bld) [Time] 48.6 s 24.1-36.2 [facility] Laboratory - Hematology and Cell countsOrdered By: Ramy Calvo on 05-05-2023 Erythrocyte distribution width (RBC) [Entitic vol] 49.1 fL 35.1-43.9 [facility] Erythrocyte distribution width (RBC) [Ratio] 13.6 % 11.6-14.6 [facility] Immature granulocytes/100 WBC (Bld) 0.200 % 0.0-0.9 [facility] Comment on above: IG% - Immature Granu locytes (promyelocytes, myelocytes and metamyelocytes) > 1% indicates that a LEFT SHIFT is Present. MCH (RBC) [Entitic mass] 32.1 pg 27.0-32.0 [facility] Nucleated RBC/100 WBC (Bld) [Ratio] 0 % 0-5 [facility] MCHC Auto (RBC) [Mass/Vol]Or dered By: Ramy Calvo on 05-05-2023 MCHC (RBC) [Mass/Vol] 32.4 g/dL 32-36 [facility] No Panel InformationOrdered By: Ramy Calvo on 05-05-2023 Estimated Creatinine Clearance Calc 62.19 ml/min [facility] Estimated GFR (MDRD) Amer 78 mL/min >60 [facility] Comment on above: GFR Calc Estimated GFR (MDRD) Non-Af Amer 65 mL/min >60 [facility] Comment on above: Non- GFR Calc Platelets bldOrdered By: Nghia Calvo on 05-05-2023 Platelets (Bld) [#/Vol] 212 10*3/uL 150-450 [facility] Serum or plasma calcium linda urement (mass/volume)Ordered By: Ramy Calvo on 05-05-2023 Calcium [Mass/Vol] 8.9 mg/dL 8.5-10.1 [facility] Serum or plasma creatinine m easurement (mass/volume)Ordered By: Ramy Calvo on 05-05-2023 Creatinine [Mass/Vol] 1.20 mg/dL 0.70-1.30 [facility] Comment on above: The validity of the calculated GFR & GFRAA in patients over 70 years has not been determined. Clinical correlation is essential. Serum or plasma urea nitroge n measurement (mass/volume)Ordered By: Ramy Calvo on 05-05-2023 Urea nitrogen [Mass/Vol] 25 mg/dL -18 [facility] Thin prep Papanicolaou smear with manual screeningOrdered By: Ramy Calvo on 05-05-2023 Thin prep Papanicolaou smear with manual screening 4 5-15 [facility] INR in Blood by Coagulation assayOrdered By: Ramy Calvo on 05-04-2023 INR Coag (Bld) [Relative time] 1.3 {INR} [facility] Laboratory - CoagulationOrde red By: Ramy Calvo on 05-04-2023 PT Coag (PPP) [Time] 16.2 s 11.7-14.[address] [facility] No Panel InformationOrdered By: Ramy Calvo on 05-04-2023 Troponin I High Sensitivity 8 pg/mL 3.0-78.0 [facility] Comment on above: Please Note: New [place] t Units and Gender Specific Reference Ranges. For more information see Policy Stat Procedure [place] High Sensitivity Troponin (TNIH) and attachments. Basophil percentageOrdered B y: Eduin Watts on 02-02-2023 Chloride [Moles/Vol] 108 mmol/L 98-[address] [facility] Cholesterol [Mass/Vol] 155 mg/dL <200 [facility] Comment on above: <200 mg/dL Desirable 200-240 mg/dL Borderline >240 mg/dL High Risk Glucose [Mass/Vol] 89 mg/dL 74-106 [facility] Potassium [Moles/Vol] 4.4 mmol/L 3.5-5.1 [facility] Sodium [Moles/Vol] 138 mmol/L 136-145 [facility] Triglyceride [Mass/Vol] 47 mg/dL <199 [facility] Comment on above: The drugs N-Acetylcy steine and Metamizole may falsely depress this assay.Serum Triglycerides Reference Interval Normal <150 mg/dL Borderline high 150 - 199 mg/dL High 200 - 499 mg/dL Very High > or = 500 mg/dL Laboratory - Chemistry and C hemistry - challengeOrdered By: Eduin Watts on 02-02-2023 CO2 [Moles/Vol] 22.0 mmol/L 21.0-32.0 [facility] Urea nitrogen/Creatinine [Mass ratio] 21.6 mg/mg 10-20 [facility] No Panel InformationOrdered By: Eduin Watts on 02-02-2023 Estimated GFR (MDRD) Amer 100 mL/min >60 [facility] Comment on above: GFR Calc Estimated GFR (MDRD) Non-Af Amer 83 mL/min >60 [facility] Comment on above: Non- GFR Calc Serum or plasma calcium linda urement (mass/volume)Ordered By: Eduin Watts on 02-02-2023 Calcium [Mass/Vol] 8.7 mg/dL 8.5-10.1 [facility] Serum or plasma cholesterol in HDL measurement (mass/volume)Ordered By: Eduin Watts on 02-02-2023 Cholesterol in HDL [Mass/Vol] 56 mg/dL >40 [facility] Comment on above: The drugs N-Acetylcy steine and Metamizole may falsely depress this assay. Reference Range HDL <40 mg/dL Low HDL Cholesterol HDL >or= 60 mg/dL High HDL Cholesterol Serum or plasma cholesterol in VLDL measurement (mass/volume)Ordered By: Eduin Watts on 02-02-2023 Cholesterol in VLDL [Mass/Vol] 9 mg/dL 5-40 [facility] Serum or plasma creatinine m easurement (mass/volume)Ordered By: Eduin Watts on 02-02-2023 Creatinine [Mass/Vol] 0.97 mg/dL 0.70-1.30 [facility] Comment on above: The validity of the calculated GFR & GFRAA in patients over 70 years has not been determined. Clinical correlation is essential. Serum or plasma low density lipoprotein (LDL) cholesterol measurement (mass/volume)Ordered By: Eduin Watts on 02-02-2023 Cholesterol in LDL [Mass/Vol] 90 mg/dL 0-130 [facility] Serum or plasma urea nitroge n measurement (mass/volume)Ordered By: Eduin Watts on 02-02-2023 Urea nitrogen [Mass/Vol] 21 mg/dL 7-18 [facility] Thin prep Papanicolaou smear with manual screeningOrdered By: Eduin Watts on 02-02-2023 Thin prep Papanicolaou smear with manual screening 8 5-15 [facility] Absolute lymphocyte countOrd ered By: Dr. Watts on 09-22-2022 Lymphocytes Auto (Unsp spec) [#/Vol] 0.86 10*3/uL 0.83-4.51 [facility] Basophil percentageOrdered B y: Dr. Watts on 09-22-2022 Basophils/100 WBC (Bld) 1.2 % 0-1 [facility] Chloride [Moles/Vol] 105 mmol/L 98-[address] [facility] Eosinophils/100 WBC (Bld) 1.8 % 0-5 [facility] Glucose [Mass/Vol] 100 mg/dL 74-106 [facility] Comment on above: Fasting Glucose resu lt from 100 to 125 mg/dL suggests IMPAIRED HOMEOSTASIS per A.D.A. criteria. Neutrophils (Bld) [#/Vol] 4.1 10*3/uL 2.0-7.7 [facility] Neutrophils/100 WBC (Bld) 71.0 % 47-70 [facility] Potassium [Moles/Vol] 4.4 mmol/L 3.5-5.1 [facility] Sodium [Moles/Vol] 139 mmol/L 136-145 [facility] WBC (Bld) [#/Vol] 5.7 10*3/uL 4.4-11.0 [facility] Blood erythrocytes count (nu mber/volume)Ordered By: Dr. Watts on 09-22-2022 RBC (Bld) [#/Vol] 4.94 10*6/uL 4.6-6.2 [facility] Blood hemoglobin measurement (mass/volume)Ordered By: Dr. Watts on 09-22-2022 Hemoglobin (Bld) [Mass/Vol] 15.5 g/dL 13.0-16.5 [facility] Blood lymphocytes/100 leukoc ytesOrdered By: Dr. Watts on 09-22-2022 Lymphocytes/100 WBC (Bld) 15.1 % 19-41 [facility] Blood monocytes/100 leukocyt esOrdered By: Dr. Watts on 09-22-2022 Monocytes/100 WBC (Bld) 10.5 % 0-10 [facility] Blood platelet mean volumeOr dered By: Dr. Watts on 09-22-2022 Platelet mean volume (Bld) [Entitic vol] 10.1 fL 6.2-12.0 [facility] Determination of erythrocyte mean corpuscular volume (MCV)Ordered By: Dr. Watts on 09-22-2022 MCV (RBC) [Entitic vol] 95.7 fL 80-94 [facility] Hematocrit Auto (Bld) [Volum e fraction]Ordered By: Dr. Watts on 09-22-2022 Hematocrit (Bld) [Volume fraction] 47.3 % 40-54 [facility] Laboratory - Chemistry and C hemistry - challengeOrdered By: Dr. Watts on 09-22-2022 CO2 [Moles/Vol] 30.0 mmol/L 21.0-32.0 [facility] Natriuretic peptide B (Bld) [Mass/Vol] 18.2 pg/mL 0-100 [facility] Urea nitrogen/Creatinine [Mass ratio] 16.3 mg/mg 10-20 [facility] Laboratory - Hematology and Cell countsOrdered By: Dr. Watts on 09-22-2022 Erythrocyte distribution width (RBC) [Entitic vol] 47.5 fL 35.1-43.9 [facility] Erythrocyte distribution width (RBC) [Ratio] 13.5 % 11.6-14.6 [facility] Immature granulocytes/100 WBC (Bld) 0.400 % 0.0-0.9 [facility] Comment on above: IG% - Immature Granu locytes (promyelocytes, myelocytes and metamyelocytes) > 1% indicates that a LEFT SHIFT is Present. MCH (RBC) [Entitic mass] 31.4 pg 27.0-32.0 [facility] Nucleated RBC/100 WBC (Bld) [Ratio] 0 % 0-5 [facility] MCHC Auto (RBC) [Mass/Vol]Or dered By: Dr. Watts on 09-22-2022 MCHC (RBC) [Mass/Vol] 32.8 g/dL 32-36 [facility] No Panel InformationOrdered By: Dr. Watts on 09-22-2022 Estimated GFR (MDRD) Amer 76 mL/min >60 [facility] Comment on above: GFR Calc Estimated GFR (MDRD) Non-Af Amer 63 mL/min >60 [facility] Comment on above: Non- GFR Calc Troponin I High Sensitivity 7 pg/mL 3.0-78.0 [facility] Comment on above: Please Note: New [place] t Units and Gender Specific Reference Ranges. For more information see Policy Stat Procedure [place] High Sensitivity Troponin (TNIH) and attachments. Platelets bldOrdered By: Dr. Watts on 09-22-2022 Platelets (Bld) [#/Vol] 284 10*3/uL 150-450 [facility] Serum or plasma calcium linda urement (mass/volume)Ordered By: Dr. Watts on 09-22-2022 Calcium [Mass/Vol] 9.3 mg/dL 8.5-10.1 [facility] Serum or plasma creatinine m easurement (mass/volume)Ordered By: Dr. Watts on 09-22-2022 Creatinine [Mass/Vol] 1.23 mg/dL 0.70-1.30 [facility] Comment on above: The validity of the calculated GFR & GFRAA in patients over 70 years has not been determined. Clinical correlation is essential. Serum or plasma urea nitroge n measurement (mass/volume)Ordered By: Dr. Watts on 09-22-2022 Urea nitrogen [Mass/Vol] 20 mg/dL 7-18 [facility] Thin prep Papanicolaou smear with manual screeningOrdered By: Dr. Watts on 09-22-2022 Thin prep Papanicolaou smear with manual screening 4 5-15 [facility] Absolute lymphocyte counton 07-13-2022 Lymphocytes Auto (Unsp spec) [#/Vol] 0.94 10*3/uL 0.83-4.51 [facility] Work Phone: Basophil percentageon 2021 Basophil percentage 5-10 SEEN /hpf 0-5 [facility] Work Phone: Basophils/100 WBC (Bld) 0.8 % 0-1 [facility] Work Phone: Eosinophils/100 WBC (Bld) 2.2 % 0-5 [facility] Work Phone: Neutrophils (Bld) [#/Vol] 3.4 10*3/uL 2.0-7.7 [facility] Work Phone: Neutrophils/100 WBC (Bld) 67.6 % 47-70 [facility] Work Phone: WBC (Bld) [#/Vol] 5.0 10*3/uL 4.4-11.0 [facility] Work Phone: Chloride [Moles/Vol] 107 mmol/L 98-[address] [facility] Work Phone: Glucose [Mass/Vol] 93 mg/dL 74-106 [facility] Work Phone: Potassium [Moles/Vol] 4.2 mmol/L 3.5-5.1 [facility] Work Phone: Sodium [Moles/Vol] 137 mmol/L 136-145 [facility] Work Phone: Bilirubin Test strip Ql (U)o n 07-13-2022 Bilirubin Ql (U) Negative Negative [facility] Work Phone: Blood erythrocytes count (nu mber/volume)on 07-13-2022 RBC (Bld) [#/Vol] 4.91 10*6/uL 4.6-6.2 [facility] Work Phone: Blood hemoglobin measurement (mass/volume)on 07-13-2022 Hemoglobin (Bld) [Mass/Vol] 15.3 g/dL 13.0-16.5 [facility] Work Phone: Blood lymphocytes/100 leukoc yteson 07-13-2022 Lymphocytes/100 WBC (Bld) 18.9 % 19-41 [facility] Work Phone: Blood monocytes/100 leukocyt eson 07-13-2022 Monocytes/100 WBC (Bld) 10.3 % 0-10 [facility] Work Phone: Blood platelet mean volumeon 07-13-2022 Platelet mean volume (Bld) [Entitic vol] 10.3 fL 6.2-12.0 [facility] Work Phone: Determination of erythrocyte mean corpuscular volume (MCV)on 07-13-2022 MCV (RBC) [Entitic vol] 93.3 fL 80-94 [facility] Work Phone: Hematocrit Auto (Bld) [Volum e fraction]on 07-13-2022 Hematocrit (Bld) [Volume fraction] 45.8 % 40-54 [facility] Work Phone: Ketones Test strip Ql (U)on 07-13-2022 Ketones Ql (U) Negative Negative [facility] Work Phone: Laboratory - Chemistry and C hemistry - challengeon 07-13-2022 CO2 [Moles/Vol] 25.0 mmol/L 21.0-32.0 [facility] Work Phone: Urea nitrogen/Creatinine [Mass ratio] 16.4 mg/mg 10-20 [facility] Work Phone: [phone] Laboratory - Hematology and Cell countson 07-13-2022 Erythrocyte distribution width (RBC) [Entitic vol] 44.1 fL 35.1-43.9 [facility] Work Phone: [phone] Erythrocyte distribution width (RBC) [Ratio] 12.9 % 11.6-14.6 [facility] Work Phone: [phone] Immature granulocytes/100 WBC (Bld) 0.200 % 0.0-0.9 [facility] Work Phone: [phone] Comment on above: IG% - Immature Granu locytes (promyelocytes, myelocytes and metamyelocytes) > 1% indicates that a LEFT SHIFT is Present. MCH (RBC) [Entitic mass] 31.2 pg 27.0-32.0 [facility] Work Phone: [phone] Nucleated RBC/100 WBC (Bld) [Ratio] 0 % 0-5 [facility] Work Phone: [phone] MCHC Auto (RBC) [Mass/Vol]on 07-13-2022 MCHC (RBC) [Mass/Vol] 33.4 g/dL 32-36 [facility] Work Phone: [phone] Mucus LM Ql (Urine sed)on Mucus Ql (Urine sed) 0 SEEN /hpf [facility] Work Phone: [phone] Nitrite Test strip Ql (U)on 07-13-2022 Nitrite Ql (U) Positive Negative [facility] Work Phone: [phone] No Panel Informationon 07-13 Troponin I High Sensitivity 7 pg/mL 3.0-78.0 [facility] Work Phone: [phone] Comment on above: Please Note: New [place] t Units and Gender Specific Reference Ranges. For more information see Policy Stat Procedure [place] High Sensitivity Troponin (TNIH) and attachments. D-Dimer Quantitative (PE/DVT) 2.42 FEU/ug/m 0.27-0.49 [facility] Work Phone: [phone] Comment on above: D-Dimer ELEVATED (>0 .49): Additional studies and clinicalassessments are indicated to conclude diagnosis of:Deep Vein Thrombosis (DVT) or Pulmonary Embolism (PE)CRITICAL VALUE VERIFIED. CALLED TO SANDY HERRING07/13/22 [id number] Logan Suero.RESULTS READ BACK BY SAME . Estimated Creatinine Clearance Calc 65.18 ml/min [facility] Work Phone: Estimated GFR (MDRD) Amer 82 mL/min >60 [facility] Work Phone: [phone] Comment on above: GFR Calc Estimated GFR (MDRD) Non-Af Amer 68 mL/min >60 [facility] Work Phone: Comment on above: Non- GFR Calc Platelets bldon 07-13-2022 Platelets (Bld) [#/Vol] 268 10*3/uL 150-450 [facility] Work Phone: Protein Test strip Ql (U)on 07-13-2022 Protein Ql (U) 15 mg/dl Negative [facility] Work Phone: [phone] Serum or plasma calcium linda urement (mass/volume)on 07-13-2022 Calcium [Mass/Vol] 9.6 mg/dL 8.5-10.1 [facility] Work Phone: Serum or plasma creatinine m easurement (mass/volume)on 07-13-2022 Creatinine [Mass/Vol] 1.16 mg/dL 0.70-1.30 [facility] Work Phone: Comment on above: The validity of the calculated GFR & GFRAA in patients over 70 years has not been determined. Clinical correlation is essential. Serum or plasma urea nitroge n measurement (mass/volume)on 07-13-2022 Urea nitrogen [Mass/Vol] 19 mg/dL 7-18 [facility] Work Phone: [phone] Squamous epithelial cells de tection in urine sediment by light microscopyon 07-13-2022 Epithelial cells.squamous LM Ql (Urine sed) 0 SEEN /hpf 0-5 [facility] Work Phone: Thin prep Papanicolaou smear with manual screeningon 07-13-2022 Thin prep Papanicolaou smear with manual screening 5 5-15 [facility] Work Phone: Urine blood detectionon 06-19 RBC Ql (U) 10 /ul Negative [facility] Work Phone: [phone] RBC Ql (U) 0 SEEN /hpf 0-5 [facility] Work Phone: [phone] Urine clarityon 07-13-2022 Clarity (U) Clear Clear [facility] Work Phone: [phone] Urine color determinationon 07-13-2022 Color (U) Yellow Yellow [facility] Work Phone: [phone] Urine glucose detectionon Glucose Ql (U) Normal mg/dl Normal [facility] Work Phone: [phone] Urine leukocyte esterase det ection by dipstickon 07-13-2022 Leukocyte esterase Test strip Ql (U) 100 /ul Negative [facility] Work Phone: Urine pHon 07-13-2022 pH (U) 7.0 [pH] 5.0 - 8.0 [facility] Work Phone: Urine sediment bacteria coun t by microscopy (number/high power field)on 07-13-2022 Bacteria LM.HPF (Urine sed) [#/Area] 0 /[HPF] None Seen [facility] Work Phone: Urine specific gravity measu rementon 07-13-2022 Specific gravity (U) [Rel density] 1.010 1.002-1.030 [facility] Work Phone: Urobilinogen Auto test strip Ql (U)on 07-13-2022 Urobilinogen Ql (U) Normal mg/dl Normal [facility] Work Phone: Absolute lymphocyte counton 04-18-2022 Lymphocytes Auto (Unsp spec) [#/Vol] 0.93 10*3/uL 0.83-4.51 [facility] Work Phone: Basophil percentageon 2021 Basophils/100 WBC (Bld) 0.9 % 0-1 [facility] Work Phone: Bilirubin [Mass/Vol] 0.50 mg/dL 0.20-1.[address] [facility] Work Phone: Comment on above: For patients on eltr ombopag therapy, use of Dimension [place] TBIL is not recommended. Chloride [Moles/Vol] 111 mmol/L 98-[address] [facility] Work Phone: Eosinophils/100 WBC (Bld) 2.4 % 0-5 [facility] Work Phone: Glucose [Mass/Vol] 84 mg/dL 74-106 [facility] Work Phone: Neutrophils (Bld) [#/Vol] 3.7 10*3/uL 2.0-7.7 [facility] Work Phone: Neutrophils/100 WBC (Bld) 69.1 % 47-70 [facility] Work Phone: Potassium [Moles/Vol] 4.4 mmol/L 3.5-5.1 [facility] Work Phone: Protein [Mass/Vol] 7.2 g/dL 6.4-8.2 [facility] Work Phone: Sodium [Moles/Vol] 140 mmol/L 136-145 [facility] Work Phone: Testosterone [Mass/Vol] 34.12 ng/dL [facility] Work Phone: Comment on above: CENTRAL 90% REFERENC E RANGES MALE AGE <50 197.44 - 669.58 ng/dL MALE AGE > or = 50 187.72 - 684.19 ng/dL FEMALE AGE <50 8.38 - 35.01 ng/dL FEMALE AGE > or = 50 <7.00 - 35.92 ng/dL Effective as of 04/13/21 WBC (Bld) [#/Vol] 5.4 10*3/uL 4.4-11.0 [facility] Work Phone: Blood erythrocytes count (nu mber/volume)on 04-18-2022 RBC (Bld) [#/Vol] 4.46 10*6/uL 4.6-6.2 [facility]: [phone] Blood hemoglobin measurement (mass/volume)on 04-18-2022 Hemoglobin (Bld) [Mass/Vol] 14.2 g/dL 13.0-16.5 [facility] Work Phone: [phone] Blood lymphocytes/100 leukoc yteson 04-18-2022 Lymphocytes/100 WBC (Bld) 17.2 % 19-41 [facility] Work Phone: [phone] Blood monocytes/100 leukocyt eson 04-18-2022 Monocytes/100 WBC (Bld) 10.2 % 0-10 [facility] Work Phone: [phone] Blood platelet mean volumeon 04-18-2022 Platelet mean volume (Bld) [Entitic vol] 10.1 fL 6.2-12.0 [facility] Work Phone: [phone] Determination of erythrocyte mean corpuscular volume (MCV)on 04-18-2022 MCV (RBC) [Entitic vol] 98.0 fL 80-94 [facility] Work Phone: [phone] Hematocrit Auto (Bld) [Volum e fraction]on 04-18-2022 Hematocrit (Bld) [Volume fraction] 43.7 % 40-54 [facility] Work Phone: [phone] Laboratory - Chemistry and C hemistry - challengeon 04-18-2022 ALP [Catalytic activity/Vol] 107 U/L 45-117 [facility] Work Phone: ALT [Catalytic activity/Vol] 23 U/L 16-61 [facility] Work Phone: [phone] CO2 [Moles/Vol] 24.0 mmol/L 21.0-32.0 [facility] Work Phone: [phone] Globulin (S) [Mass/Vol] 3.3 g/dL 2.2-4.2 [facility] Work Phone: [phone] Urea nitrogen/Creatinine [Mass ratio] 19.1 mg/mg 10-20 [facility] Work Phone: [phone] Laboratory - Hematology and Cell countson 04-18-2022 Erythrocyte distribution width (RBC) [Entitic vol] 51.2 fL 35.1-43.9 [facility] Work Phone: [phone] Erythrocyte distribution width (RBC) [Ratio] 14.1 % 11.6-14.6 [facility] Work Phone: [phone] Immature granulocytes/100 WBC (Bld) 0.200 % 0.0-0.9 [facility] Work Phone: [phone] Comment on above: IG% - Immature Granu locytes (promyelocytes, myelocytes and metamyelocytes) > 1% indicates that a LEFT SHIFT is Present. MCH (RBC) [Entitic mass] 31.8 pg 27.0-32.0 [facility] Work Phone: [phone] Nucleated RBC/100 WBC (Bld) [Ratio] 0 % 0-5 [facility] Work Phone: [phone] MCHC Auto (RBC) [Mass/Vol]on 04-18-2022 MCHC (RBC) [Mass/Vol] 32.5 g/dL 32-36 [facility] Work Phone: No Panel Informationon 04-18 Estimated GFR (MDRD) Amer 98 mL/min >60 [facility] Work Phone: Comment on above: GFR Calc Estimated GFR (MDRD) Non-Af Amer 81 mL/min >60 [facility] Work Phone: [phone] Comment on above: Non- GFR Calc Thyroid Stimulating Hormone (TSH) 2.67 uIU/mL 0.358-3.74 [facility] Work Phone: [phone] Platelets bldon 04-18-2022 Platelets (Bld) [#/Vol] 265 10*3/uL 150-450 [facility] Work Phone: [phone] Serum or plasma albumin linda urement (mass/volume)on 04-18-2022 Albumin [Mass/Vol] 3.9 g/dL 3.2-5.0 [facility] Work Phone: Serum or plasma albumin/glob ulin mass ratioon 04-18-2022 Albumin/Globulin [Mass ratio] 1.2 {ratio} 0.9-2.4 [facility] Work Phone: Serum or plasma calcium linda urement (mass/volume)on 04-18-2022 Calcium [Mass/Vol] 9.2 mg/dL 8.5-10.1 [facility] Work Phone: [phone] Serum or plasma creatinine m easurement (mass/volume)on 04-18-2022 Creatinine [Mass/Vol] 1.00 mg/dL 0.70-1.30 [facility] Work Phone: Comment on above: The validity of the calculated GFR & GFRAA in patients over 70 years has not been determined. Clinical correlation is essential. Serum or plasma urea nitroge n measurement (mass/volume)on 04-18-2022 Urea nitrogen [Mass/Vol] 19 mg/dL 7-18 [facility] Work Phone: [phone] Thin prep Papanicolaou smear with manual screeningon 04-18-2022 Thin prep Papanicolaou smear with manual screening 20 U/L 15-37 [facility] Work Phone: Thin prep Papanicolaou smear with manual screening 5 5-15 [facility] Work Phone: Basophil percentageon 2021 Bilirubin [Mass/Vol] 0.40 mg/dL 0.20-1.[address] [facility] Work Phone: Comment on above: For patients on eltr ombopag therapy, use of [employer] [place] TBIL is not recommended. Chloride [Moles/Vol] 105 mmol/L 98-[address] [facility] Work Phone: [phone] Cholesterol [Mass/Vol] 159 mg/dL <200 [facility] Work Phone: [phone] Comment on above: <200 mg/dL Desirable 200-240 mg/dL Borderline >240 mg/dL High Risk Glucose [Mass/Vol] 90 mg/dL 74-106 [facility] Work Phone: Potassium [Moles/Vol] 4.1 mmol/L 3.5-5.1 [facility] Work Phone: [phone] Protein [Mass/Vol] 7.2 g/dL 6.4-8.2 [facility] Work Phone: [phone] Sodium [Moles/Vol] 139 mmol/L 136-145 [facility] Work Phone: [phone] Triglyceride [Mass/Vol] 66 mg/dL <199 [facility] Work Phone: [phone] Comment on above: The drugs N-Acetylcy steine and Metamizole may falsely depress this assay.Serum Triglycerides Reference Interval Normal <150 mg/dL Borderline high 150 - 199 mg/dL High 200 - 499 mg/dL Very High > or = 500 mg/dL Laboratory - Chemistry and C hemistry - challengeon 01-27-2022 ALP [Catalytic activity/Vol] 116 U/L 45-117 [facility] Work Phone: ALT [Catalytic activity/Vol] 42 U/L 16-61 [facility] Work Phone: CO2 [Moles/Vol] 27.0 mmol/L 21.0-32.0 [facility] Work Phone: Globulin (S) [Mass/Vol] 3.4 g/dL 2.2-4.2 [facility] Work Phone: [phone] Urea nitrogen/Creatinine [Mass ratio] 17.6 mg/mg 10-20 [facility] Work Phone: No Panel Informationon 01-27 Estimated GFR (MDRD) Amer 75 mL/min >60 [facility] Work Phone: [phone] Comment on above: GFR Calc Estimated GFR (MDRD) Non-Af Amer 62 mL/min >60 [facility] Work Phone: [phone] Comment on above: Non- GFR Calc Serum or plasma albumin linda urement (mass/volume)on 01-27-2022 Albumin [Mass/Vol] 3.8 g/dL 3.2-5.0 [facility] Work Phone: Serum or plasma albumin/glob ulin mass ratioon 01-27-2022 Albumin/Globulin [Mass ratio] 1.1 {ratio} 0.9-2.4 [facility] Work Phone: Serum or plasma calcium linda urement (mass/volume)on 01-27-2022 Calcium [Mass/Vol] 8.9 mg/dL 8.5-10.1 [facility] Work Phone: Serum or plasma cholesterol in HDL measurement (mass/volume)on 01-27-2022 Cholesterol in HDL [Mass/Vol] 62 mg/dL >40 [facility] Work Phone: Comment on above: The drugs N-Acetylcy steine and Metamizole may falsely depress this assay. Reference Range HDL <40 mg/dL Low HDL Cholesterol HDL >or= 60 mg/dL High HDL Cholesterol Serum or plasma cholesterol in VLDL measurement (mass/volume)on 01-27-2022 Cholesterol in VLDL [Mass/Vol] 13 mg/dL 5-40 [facility] Work Phone: [phone] Serum or plasma creatinine m easurement (mass/volume)on 01-27-2022 Creatinine [Mass/Vol] 1.25 mg/dL 0.70-1.30 [facility] Work Phone: Comment on above: The validity of the calculated GFR & GFRAA in patients over 70 years has not been determined. Clinical correlation is essential. Serum or plasma low density lipoprotein (LDL) cholesterol measurement (mass/volume)on 01-27-2022 Cholesterol in LDL [Mass/Vol] 84 mg/dL 0-130 [facility] Work Phone: Serum or plasma urea nitroge n measurement (mass/volume)on 01-27-2022 Urea nitrogen [Mass/Vol] 22 mg/dL 7-18 [facility] Work Phone: Thin prep Papanicolaou smear with manual screeningon 01-27-2022 Thin prep Papanicolaou smear with manual screening 50 U/L 15-37 [facility] Work Phone: Thin prep Papanicolaou smear with manual screening 7 5-15 [facility] Work Phone: Absolute lymphocyte counton 11-17-2021 Lymphocytes Auto (Unsp spec) [#/Vol] 0.72 10*3/uL 0.83-4.51 [facility] Work Phone: Basophil percentageon 2021 Basophils/100 WBC (Bld) 1.0 % 0-1 [facility] Work Phone: Bilirubin [Mass/Vol] 0.40 mg/dL 0.20-1.[address] [facility] Work Phone: Comment on above: For patients on eltr ombopag therapy, use of [employer] [place] TBIL is not recommended. Chloride [Moles/Vol] 106 mmol/L 98-[address] [facility] Work Phone: Eosinophils/100 WBC (Bld) 2.6 % 0-5 [facility] Work Phone: Glucose [Mass/Vol] 86 mg/dL 74-106 [facility] Work Phone: Neutrophils (Bld) [#/Vol] 3.7 10*3/uL 2.0-7.7 [facility] Work Phone: Neutrophils/100 WBC (Bld) 73.1 % 47-70 [facility] Work Phone: Potassium [Moles/Vol] 4.4 mmol/L 3.5-5.1 [facility] Work Phone: Protein [Mass/Vol] 7.6 g/dL 6.4-8.2 [facility] Work Phone: Sodium [Moles/Vol] 139 mmol/L 136-145 [facility] Work Phone: WBC (Bld) [#/Vol] 5.1 10*3/uL 4.4-11.0 [facility] Work Phone: Blood erythrocytes count (nu mber/volume)on 11-17-2021 RBC (Bld) [#/Vol] 4.70 10*6/uL 4.6-6.2 [facility] Work Phone: Blood hemoglobin measurement (mass/volume)on 11-17-2021 Hemoglobin (Bld) [Mass/Vol] 15.1 g/dL 13.0-16.5 [facility] Work Phone: Blood lymphocytes/100 leukoc yteson 11-17-2021 Lymphocytes/100 WBC (Bld) 14.1 % 19-41 [facility] Work Phone: Blood monocytes/100 leukocyt eson 11-17-2021 Monocytes/100 WBC (Bld) 9.0 % 0-10 [facility] Work Phone: Blood platelet mean volumeon 11-17-2021 Platelet mean volume (Bld) [Entitic vol] 10.1 fL 6.2-12.0 [facility] Work Phone: Determination of erythrocyte mean corpuscular volume (MCV)on 11-17-2021 MCV (RBC) [Entitic vol] 97.4 fL 80-94 [facility] Work Phone: Erythrocyte sedimentation ra raciel 11-17-2021 ESR (Bld) [Velocity] 8 mm[facility]h [facility]: [phone] Hematocrit Auto (Bld) [Volum e fraction]on 11-17-2021 Hematocrit (Bld) [Volume fraction] 45.8 % 40-54 [facility] Work Phone: Laboratory - Chemistry and C hemistry - challengeon 11-17-2021 ALP [Catalytic activity/Vol] 109 U/L 45-117 [facility] Work Phone: ALT [Catalytic activity/Vol] 25 U/L 16-61 [facility] Work Phone: [phone] CO2 [Moles/Vol] 30.0 mmol/L 21.0-32.0 [facility] Work Phone: Globulin (S) [Mass/Vol] 3.8 g/dL 2.2-4.2 [facility] Work Phone: [phone] Urea nitrogen/Creatinine [Mass ratio] 15.7 mg/mg 10-20 [facility] Work Phone: [phone] Laboratory - Hematology and Cell countson 11-17-2021 Erythrocyte distribution width (RBC) [Entitic vol] 47.7 fL 35.1-43.9 [facility] Work Phone: [phone] Erythrocyte distribution width (RBC) [Ratio] 13.2 % 11.6-14.6 [facility] Work Phone: [phone] Immature granulocytes/100 WBC (Bld) 0.200 % 0.0-0.9 [facility] Work Phone: [phone] Comment on above: IG% - Immature Granu locytes (promyelocytes, myelocytes and metamyelocytes) > 1% indicates that a LEFT SHIFT is Present. MCH (RBC) [Entitic mass] 32.1 pg 27.0-32.0 [facility] Work Phone: [phone] Nucleated RBC/100 WBC (Bld) [Ratio] 0 % 0-5 [facility] Work Phone: [phone] MCHC Auto (RBC) [Mass/Vol]on 11-17-2021 MCHC (RBC) [Mass/Vol] 33.0 g/dL 32-36 [facility] Work Phone: No Panel Informationon 11-17 Estimated GFR (MDRD) Amer 89 mL/min >60 [facility] Work Phone: Comment on above: GFR Calc Estimated GFR (MDRD) Non-Af Amer 74 mL/min >60 [facility] Work Phone: [phone] Comment on above: Non- GFR Calc Thyroid Stimulating Hormone (TSH) 2.20 uIU/mL 0.358-3.74 [facility] Work Phone: Platelets bldon 11-17-2021 Platelets (Bld) [#/Vol] 300 10*3/uL 150-450 [facility] Work Phone: Serum or plasma albumin linda urement (mass/volume)on 11-17-2021 Albumin [Mass/Vol] 3.8 g/dL 3.2-5.0 [facility] Work Phone: [phone] Serum or plasma albumin/glob ulin mass ratioon 11-17-2021 Albumin/Globulin [Mass ratio] 1.0 {ratio} 0.9-2.4 [facility] Work Phone: [phone] Serum or plasma calcium linda urement (mass/volume)on 11-17-2021 Calcium [Mass/Vol] 8.8 mg/dL 8.5-10.1 [facility] Work Phone: [phone] Serum or plasma creatinine m easurement (mass/volume)on 11-17-2021 Creatinine [Mass/Vol] 1.08 mg/dL 0.70-1.30 [facility] Work Phone: Comment on above: The validity of the calculated GFR & GFRAA in patients over 70 years has not been determined. Clinical correlation is essential. Serum or plasma urea nitroge n measurement (mass/volume)on 11-17-2021 Urea nitrogen [Mass/Vol] 17 mg/dL 7-18 [facility] Work Phone: [phone] Thin prep Papanicolaou smear with manual screeningon 11-17-2021 Thin prep Papanicolaou smear with manual screening 22 U/L 15-37 [facility] Work Phone: [phone] Thin prep Papanicolaou smear with manual screening 3 5-15 [facility] Work Phone: Basophil percentageon 2021 Bilirubin [Mass/Vol] 0.50 mg/dL 0.20-1.[address] [facility] Work Phone: [phone] Comment on above: For patients on eltr ombopag therapy, use of [place] TBIL is not recommended. Chloride [Moles/Vol] 106 mmol/L 98-[address] [facility] Work Phone: [phone] Cholesterol [Mass/Vol] 169 mg/dL <200 [facility] Work Phone: [phone] Comment on above: <200 mg/dL Desirable 200-240 mg/dL Borderline >240 mg/dL High Risk Glucose [Mass/Vol] 78 mg/dL 74-106 [facility] Work Phone: [phone] Potassium [Moles/Vol] 4.3 mmol/L 3.5-5.1 [facility] Work Phone: [phone] Protein [Mass/Vol] 7.8 g/dL 6.4-8.2 [facility] Work Phone: [phone] Sodium [Moles/Vol] 138 mmol/L 136-145 [facility] Work Phone: [phone] Triglyceride [Mass/Vol] 56 mg/dL [facility] Work Phone: [phone] Comment on above: The drugs N-Acetylcy steine and Metamizole may falsely depress this assay.Serum Triglycerides Reference Interval Normal <150 mg/dL Borderline high 150 - 199 mg/dL High 200 - 499 mg/dL Very High > or = 500 mg/dL Laboratory - Chemistry and C hemistry - challengeon 11-04-2021 ALP [Catalytic activity/Vol] 124 U/L 45-117 [facility] Work Phone: ALT [Catalytic activity/Vol] 22 U/L 16-61 [facility] Work Phone: [phone] CO2 [Moles/Vol] 28.0 mmol/L 21.0-32.0 [facility] Work Phone: [phone] Globulin (S) [Mass/Vol] 3.9 g/dL 2.2-4.2 [facility] Work Phone: [phone] Urea nitrogen/Creatinine [Mass ratio] 12.8 mg/mg 10-20 [facility] Work Phone: [phone] No Panel Informationon 11-04 Estimated GFR (MDRD) Amer 75 mL/min >60 [facility] Work Phone: [phone] Comment on above: GFR Calc Estimated GFR (MDRD) Non-Af Amer 62 mL/min >60 [facility] Work Phone: Comment on above: Non- GFR Calc Serum or plasma albumin linda urement (mass/volume)on 11-04-2021 Albumin [Mass/Vol] 3.9 g/dL 3.2-5.0 [facility] Work Phone: Serum or plasma albumin/glob ulin mass ratioon 11-04-2021 Albumin/Globulin [Mass ratio] 1.0 {ratio} 0.9-2.4 [facility] Work Phone: Serum or plasma calcium linda urement (mass/volume)on 11-04-2021 Calcium [Mass/Vol] 9.3 mg/dL 8.5-10.1 [facility] Work Phone: Serum or plasma cholesterol in HDL measurement (mass/volume)on 11-04-2021 Cholesterol in HDL [Mass/Vol] 60 mg/dL [facility] Work Phone: Comment on above: The drugs N-Acetylcy steine and Metamizole may falsely depress this assay. Reference Range HDL <40 mg/dL Low HDL Cholesterol HDL >or= 60 mg/dL High HDL Cholesterol Serum or plasma cholesterol in VLDL measurement (mass/volume)on 11-04-2021 Cholesterol in VLDL [Mass/Vol] 11 mg/dL 5-40 [facility] Work Phone: Serum or plasma creatinine m easurement (mass/volume)on 11-04-2021 Creatinine [Mass/Vol] 1.25 mg/dL 0.70-1.30 [facility] Work Phone: Comment on above: The validity of the calculated GFR & GFRAA in patients over 70 years has not been determined. Clinical correlation is essential. Serum or plasma low density lipoprotein (LDL) cholesterol measurement (mass/volume)on 11-04-2021 Cholesterol in LDL [Mass/Vol] 98 mg/dL 0-130 [facility] Work Phone: Serum or plasma urea nitroge n measurement (mass/volume)on 11-04-2021 Urea nitrogen [Mass/Vol] 16 mg/dL 7-18 [facility] Work Phone: [phone] Thin prep Papanicolaou smear with manual screeningon 11-04-2021 Thin prep Papanicolaou smear with manual screening 23 U/L 15-37 [facility] Work Phone: Thin prep Papanicolaou smear with manual screening 4 5-15 [facility] Work Phone: COVID-19 virus antigen assay SARS-CoV-2 (COVID-19) Ag IA.rapid Ql (Resp) [facility] Work Phone: Vital Signs Date Time Vital Sign Value Performing Clinician Faci lity 02-17-2025 06:47-0400 Body mass index (BMI) [Ratio] 37.8 kg/m2 Dr. Eduin Watts MD Work Phone: [facility] 02-17-2025 06:47-0400 Body weight 116.[address] Eduin Watts MD Work Phone: [facility] 02-17-2025 06:47-0400 Diastolic blood pressure 82 mm[Hg] Dr. Eduin Watts MD Work Phone: [facility] 02-17-2025 06:47-0400 Heart rate 57 /min Dr. Eduin Watts MD Work Phone: [facility] 02-17-2025 06:47-0400 Respiratory rate 18 /min Dr. Eduin Watts MD Work Phone: [facility] 02-17-2025 06:47-0400 SaO2% (BldA) [Mass fraction] 98 % Dr. Eduin Watts MD Work Phone: [facility] 02-17-2025 06:47-0400 Systolic blood pressure 126 mm[Hg] Dr. Eduin Watts MD Work Phone: [facility] 12-07-2024 11:08-0400 Body mass index (BMI) [Ratio] 38.88 kg/m2 Nurys Salazar APRN.SYSTEM DISPATCHER Work Phone: [facility] 12-07-2024 11:08-0400 Body temperature 97 [degF] Nurys Salazar APRN.SYSTEM DISPATCHER Work Phone: [facility] 12-07-2024 11:08-0400 Body weight 116 kg Nurys Moomaw MAINTENANCE AND OPERATIONS SUPERVISOR.SYSTEM DISPATCHER Work Phone: [facility] 12-07-2024 11:08-0400 Diastolic blood pressure 90 mm[Hg] Nurys Moomaw MAINTENANCE AND OPERATIONS SUPERVISOR.SYSTEM DISPATCHER Work Phone: [facility] 12-07-2024 11:08-0400 Heart rate 60 /min Nurys Moomaw MAINTENANCE AND OPERATIONS SUPERVISOR.SYSTEM DISPATCHER Work Phone: [facility] 12-07-2024 11:08-0400 Respiratory rate 20 /min Nurys Moomaw MAINTENANCE AND OPERATIONS SUPERVISOR.SYSTEM DISPATCHER Work Phone: [facility] 12-07-2024 11:08-0400 SaO2% (BldA) [Mass fraction] 97 % Nurys Moomaw MAINTENANCE AND OPERATIONS SUPERVISOR.SYSTEM DISPATCHER Work Phone: [facility] 12-07-2024 11:08-0400 Systolic blood pressure 128 mm[Hg] Nurys Moomaw MAINTENANCE AND OPERATIONS SUPERVISOR.SYSTEM DISPATCHER Work Phone: [facility] 01-11-2024 20:38-0400 Body temperature 97.3 [degF] Dr. Eduin Watts Work Phone: [facility] 01-11-2024 20:38-0400 Diastolic blood pressure 74 mm[Hg] Dr. Eduin Watts Work Phone: [facility] 01-11-2024 20:38-0400 Heart rate 60 /min Dr. Eduin Watts Work Phone: [facility] 01-11-2024 20:38-0400 Respiratory rate 17 /min Dr. Eduin Watts Work Phone: [facility] 01-11-2024 20:38-0400 SaO2% (BldA) [Mass fraction] 97 % Dr. Eduin Watts Work Phone: [facility] 01-11-2024 20:38-0400 Systolic blood pressure 103 mm[Hg] Dr. Eduin Watts Work Phone: [facility] 01-11-2024 17:36-0400 Body height 175.[address] Eduin Watts Work Phone: [facility] 01-11-2024 17:36-0400 Body mass index (BMI) [Ratio] 38.2 kg/m2 Dr. Eduin Watts Work Phone: [facility] 01-11-2024 17:36-0400 Body weight 117.[address] Eduin Watts Work Phone: [facility] 10-06-2023 14:15-0500 Body height 175.[address] Eduin Watts Work Phone: [facility] 10-06-2023 14:15-0500 Body mass index (BMI) [Ratio] 37.9 kg/m2 Dr. Eduin Watts Work Phone: [facility] 10-06-2023 14:15-0500 Body weight 116.[address] Eduin Watts Work Phone: [facility] 10-06-2023 14:15-0500 Diastolic blood pressure 81 mm[Hg] Dr. Eduin Watts Work Phone: [facility] 10-06-2023 14:15-0500 Heart rate 70 /min Dr. Eduin Watts Work Phone: [facility] 10-06-2023 14:15-0500 Respiratory rate 18 /min Dr. Eduin Watts Work Phone: [facility] 10-06-2023 14:15-0500 SaO2% (BldA) [Mass fraction] 95 % Dr. Eduin Watts Work Phone: [facility] 10-06-2023 14:15-0500 Systolic blood pressure 125 mm[Hg] Dr. Eduin Watts Work Phone: [facility] 05-05-2023 14:49-0400 SaO2% (BldA) [Mass fraction] 96 % Dr. Eduin Watts Work Phone: [facility] 05-05-2023 13:45-0400 Body temperature 97.7 [degF] Dr. Eduin Watts Work Phone: [facility] 05-05-2023 13:45-0400 Diastolic blood pressure 86 mm[Hg] Dr. Eduin Watts Work Phone: [facility] 05-05-2023 13:45-0400 Heart rate 62 /min Dr. Eduin Watts Work Phone: [facility] 05-05-2023 13:45-0400 Respiratory rate 18 /min Dr. Eduin Watts Work Phone: [facility] 05-05-2023 13:45-0400 Systolic blood pressure 121 mm[Hg] Dr. Eduin Watts Work Phone: [facility] 05-04-2023 20:42-0400 Body height 175.[address] Eduin Watts Work Phone: [facility] 05-04-2023 20:42-0400 Body mass index (BMI) [Ratio] 38 kg/m2 Dr. Eduin Watts Work Phone: [facility] 05-04-2023 20:42-0400 Body weight [address] Eduin Watts Work Phone: [facility] 03-30-2023 10:59-0400 Body mass index (BMI) [Ratio] 38 kg/m2 Dr. Eduin Watts Work Phone: [facility] 03-30-2023 10:59-0400 Body weight 116.[address] Eduin Watts Work Phone: [facility] 03-30-2023 10:59-0400 Diastolic blood pressure 86 mm[Hg] Dr. Eduin Watts Work Phone: [facility] 03-30-2023 10:59-0400 Heart rate 65 /min Dr. Eduin Watts Work Phone: [facility] 03-30-2023 10:59-0400 Respiratory rate 18 /min Dr. Eduin Watts Work Phone: [facility] 03-30-2023 10:59-0400 SaO2% (BldA) [Mass fraction] 96 % Dr. Eduin Watts Work Phone: [facility] 03-30-2023 10:59-0400 Systolic blood pressure 135 mm[Hg] Dr. Eduin Watts Work Phone: [facility] 11-07-2022 11:16-0500 Body height 175.[address] Eduin Watts Work Phone: [facility] 11-07-2022 11:16-0500 Body mass index (BMI) [Ratio] 39.1 kg/m2 Dr. Eduin Watts Work Phone: [facility] 11-07-2022 11:16-0500 Body weight 120.[address] Eduin Watts Work Phone: [facility] 11-07-2022 11:16-0500 Diastolic blood pressure 82 mm[Hg] Dr. Eduin Watts Work Phone: [facility] 11-07-2022 11:16-0500 Heart rate 77 /min Dr. Eduin Watts Work Phone: [facility] 11-07-2022 11:16-0500 Respiratory rate 16 /min Dr. Eduin Watts Work Phone: [facility] 11-07-2022 11:16-0500 SaO2% (BldA) [Mass fraction] 97 % Dr. Eduin Watts Work Phone: [facility] 11-07-2022 11:16-0500 Systolic blood pressure 121 mm[Hg] Dr. Eduin Watts Work Phone: [facility] 07-26-2022 10:42-0500 Body height 175.[address] Eduin Watts Work Phone: [facility] Work Phone: 07-26-2022 10:42-0500 Body mass index (BMI) [Ratio] 38.9 kg/m2 Dr. Eduin Watts Work Phone: [facility] 07-26-2022 10:42-0500 Body weight 119.[address] Eduin Watts Work Phone: [facility] 07-26-2022 10:42-0500 Diastolic blood pressure 90 mm[Hg] Dr. Eduin Watts Work Phone: [facility] 07-26-2022 10:42-0500 Heart rate 66 /min Dr. Eduin Watts Work Phone: [facility] 07-26-2022 10:42-0500 Respiratory rate 18 /min Dr. Eduin Watts Work Phone: [facility] 07-26-2022 10:42-0500 SaO2% (BldA) [Mass fraction] 96 % Dr. Eduin Watts Work Phone: [facility] 07-26-2022 10:42-0500 Systolic blood pressure 132 mm[Hg] Dr. Eduin Watts Work Phone: [facility] 07-13-2022 21:17-0400 Diastolic blood pressure 100 mm[Hg] [facility] Work Phone: 07-13-2022 21:17-0400 Heart rate 59 /min [facility] Work Phone: 07-13-2022 21:17-0400 Respiratory rate 18 /min [facility] Work Phone: 07-13-2022 21:17-0400 SaO2% (BldA) [Mass fraction] 94 % [facility] Work Phone: 07-13-2022 21:17-0400 Systolic blood pressure 152 mm[Hg] [facility] Work Phone: 07-13-2022 15:28-0400 Body height 175.26 cm [facility] Work Phone: 07-13-2022 15:28-0400 Body mass index (BMI) [Ratio] 37.8 kg/m2 [facility] Work Phone: 07-13-2022 15:28-0400 Body temperature 96.5 [degF] [facility] Work Phone: 07-13-2022 15:28-0400 Body weight 116 kg [facility] Work Phone: 02-13-2022 14:45-0400 Body height 172.72 cm [facility] Work Phone: 02-13-2022 14:45-0400 Body mass index (BMI) [Ratio] 38.2 kg/m2 [facility] Work Phone: 02-13-2022 14:45-0400 Body temperature 98.3 [degF] [facility] Work Phone: 02-13-2022 14:45-0400 Body weight 114.3 kg [facility] Work Phone: 02-13-2022 14:45-0400 Diastolic blood pressure 89 mm[Hg] [facility] Work Phone: 02-13-2022 14:45-0400 Heart rate 81 /min [facility] Work Phone: 02-13-2022 14:45-0400 Respiratory rate 16 /min [facility] Work Phone: 02-13-2022 14:45-0400 SaO2% (BldA) [Mass fraction] 96 % [facility] Work Phone: 02-13-2022 14:45-0400 Systolic blood pressure 132 mm[Hg] [facility] Work Phone: Encounters Encounter Date Encounter Type Care Provider Facility Start: 04-01-2025 ambulatory Eduin Watts Facility:[facility] Start: 2025 End: [address] Eduin Watts MD Work Phone: -Laboratory [facility] Start: 2025 End: [address] Eduin Watts MD -Laboratory [facility] Start: 2025 End: 2025 ambulatory Eduin Watts Facility:[facility] Start: 02-17-2025 End: 02-17-2025 Patient encounter procedure Carrillo Douglas Velma ALLAN-[facility] Work Phone: Start: 02-17-2025 End: 02-17-[address] Eduin Watts MD Work Phone: [facility] Work Phone: Start: 02-06-2025 End: 02-06-[address] Eduin Watts MD Work Phone: [facility] Work Phone: Start: 02-06-2025 End: 02-06-[address] Eduin Watts MD -Laboratory [facility] Work Phone: Start: 02-05-2025 End: 02-06-[address] Eduin Watts MD Work Phone: [facility] Work Phone: Start: 02-05-2025 End: 02-05-[address] Eduin Watts MD -Laboratory [facility] Start: 02-05-2025 End: 02-05-2025 ambulatory Eduin Watts Facility:[facility] Start: 12-07-2024 End: 12-07-2024 ambulatory ALVIN Pierce KIA Facility:[facility] Start: 12-07-2024 End: 12-07-2024 Patient encounter procedure Nurys Marie SYSTEM DISPATCHER Work Phone: [facility] Comment on above: Bilateral impacted c erumen (Primary Dx) Start: 10-12-2024 ambulatory Eduin Watts Facility:[facility] Start: 10-11-2024 End: 10-11-2024 ambulatory Eduin Watts Facility:[facility] Start: 08-19-2024 End: 08-19-2024 ambulatory Eduin Watts Facility:[facility] Start: 06-10-2024 End: 06-10-2024 ambulatory Eduin Watts Facility:[facility] Start: 06-08-2024 End: 06-08-2024 Emergency department patient visit Eduin Watts Facility:[facility] Start: 05-02-2024 End: 05-02-2024 ambulatory Eduin Watts Facility:[facility] Start: 01-11-2024 End: 01-11-2024 Emergency department patient visit Dr. Eduin Watts Work Phone: [facility]-Emergency Department Work Phone: Start: 12-14-2023 End: 12-14-[address] Eduin Watts Work Phone: [facility] Work Phone: Start: 12-14-2023 End: 12-14-[address] Eduin Watts Work Phone: [facility] Work Phone: Start: 10-06-2023 End: 10-06-[address] Eduin Watts Work Phone: [facility] Work Phone: Start: 10-06-2023 End: 10-06-[address] Eduin Watts Work Phone: [facility] Work Phone: Start: 08-17-2023 End: 08-17-[address] Eduin Watts Work Phone: [facility] Work Phone: Start: 05-05-2023 Non-patient / Non-visit Dr. Santos Watts Work Phone: [facility] Work Phone: Start: 05-05-2023 Non-patient / Non-visit Dr. Santos Watts Work Phone: [facility] Start: 05-04-2023 Non-patient / Non-visit Dr. Santos Watts Work Phone: [facility] Work Phone: Start: 05-04-2023 End: 05-05-2023 Evaluation and management of inpatient Dr. Eduin Watts Work Phone: [facility]-Progressive Care Unit Work Phone: Start: 05-04-2023 End: 05-05-[address] Eduin Watts Work Phone: [facility] Work Phone: Start: 03-30-2023 End: 03-30-[address] Eduin Watts Work Phone: [facility] Work Phone: Start: 02-02-2023 End: 02-02-[address] Eduin Watts Work Phone: [facility] Start: 11-14-2022 Non-patient / Non-visit Dr. Santos Watts Work Phone: [facility] Start: 11-14-2022 End: 11-14-[address] Eduin Watts Work Phone: [facility] Work Phone: Start: 11-14-2022 End: 11-14-[address] [facility] Start: 11-07-2022 End: 11-07-[address] Eduin Watts Work Phone: [facility] Start: 09-22-2022 End: 09-22-[address] Eduin Watts Work Phone: [facility] Start: 09-01-2022 Non-patient / Non-visit Dr. Santos Watts Work Phone: [facility] Start: 08-09-2022 Non-patient / Non-visit Dr. Santos Watts Work Phone: [facility] Start: 08-09-2022 End: 08-09-[address] Eduin Watts Work Phone: [facility] Work Phone: Start: 08-09-2022 End: 08-09-[address] [facility] Start: 08-03-[address] Edu[facility] loya [facility] Start: 07-26-2022 End: 07-26-[address] Eduin Watts Work Phone: [facility] Start: 07-13-2022 End: 07-13-2022 [facility] Start: 04-18-2022 End: 04-18-2022 Patient encounter procedure [facility] Start: 02-13-2022 End: 02-13-2022 [facility] Start: 01-27-2022 End: 01-27-2022 Patient encounter procedure [facility] Start: 11-17-2021 End: 11-17-2021 Patient encounter procedure [facility] Start: 11-04-2021 End: 11-04-2021 [facility] Date Procedure Procedure Detail Performing Clinician Start: 02-06-2025 Urine microalbumin/creatinine ratio measurement Dr. Eduin Watts MD Work Phone: Comment on above: Previous reported re sult: 159.2 mg/g CREEdited by: ARJUN on 03/11/25:1037 AMENDED REPORT 03/11/25 1037 MALB:CREAT previously reported as: 159.2 mg/g CRE Start: 01-11-2024 Plain chest X-ray Dr. Lynn Watts Work Phone: Start: 01-11-2024 CT of head without contrast Dr. Eduin Watts Work Phone: Start: 08-17-2023 Radiologic examinati on of knee Dr. Eduin Watts Work Phone: Start: 05-05-2023 CT angiography of ch est with contrast Dr. Eduin Watts Work Phone: Start: 05-04-2023 Plain chest X-ray Dr. Lynn Watts Work Phone: Start: 11-14-2022 Cardiovascular stres s test using pharmacologic stress agent Dr. Eduin Watts Work Phone: Start: 09-22-2022 Plain chest X-ray Dr. Lynn Watts Work Phone: Start: 07-13-2022 CT angiography of ch est with contrast Start: 07-13-2022 Plain chest X-ray Start: 11-17-2021 Plain chest X-ray Start: 07-18-2005 History of gastroint estinal tract bypass POST OP S/P INTESTINAL BYPASS Nurys Salazar APRN.CNP Work Phone: Viral antigen assay Plan of Treatment Date Care Activity Detail Author Start: 02-14-2032 Urine microalbumin profile DTaP,Tdap,Td Vaccine (2 - Td or Tdap) [facility] Start: 09-18-2024 Advance Directive Discussion Advance Directive Discussion [facility] Start: 05-19-2024 Covid-19 Vaccine () Covid-19 Vaccine () [facility] Start: 05-19-2024 Influenza vaccination [facility] Start: 01-11-2024 [facility] Start: 05-06-2023 Blood chemistry [facility] Start: 05-05-2023 Patient discharge [facility] Start: 05-05-2023 Referral to vascular surgeon [facility] Start: 05-04-2023 Application of intermittent pneumatic compression device [facility] Start: 05-04-2023 Following clinical pathway protocol [facility] Start: 05-04-2023 Assessment of risk of venous thromboembolism [facility] Start: 05-04-2023 Inhalation therapy procedure [facility] Start: 05-04-2023 Insertion of catheter into peripheral vein [facility] Start: 05-04-2023 Measuring intake and output [facility] Start: 05-04-2023 Oxygen therapy [facility] Start: 05-04-2023 Providing care according to standard [facility] Start: 05-04-2023 Provision of activity privileges [facility] Start: 05-04-2023 Referral to guide plant [facility] Start: 05-04-2023 Tobacco use cessation education [facility] Start: 05-04-2023 [facility] Start: 05-04-2023 Verification routine [facility] Start: 05-04-2023 Admission procedure [facility] Start: 07-13-2022 [facility] Work Phone: Start: 2019 RSV Vaccine (1 - Risk 60-74 years 1-dose series) RSV Vaccine (1 - Risk 60-74 years 1-dose series) [facility] Start: 2014 Prostate specific antigen measurement Prostate Cancer Screening Discussion [facility] Start: 2009 Shingrix Vaccine (1 of 2) Shingrix Vaccine (1 of 2) [facility] Start: 2004 Screening for malignant neoplasm of colon [facility] Start: 1978 Pneumococcal Vaccine: 50+ (1 of 2 - PCV) Pneumococcal Vaccine: 50+ (1 of 2 - PCV) [facility] Start: 1977 Annual PCP Team Chronic Disease Visit Annual PCP Team Chronic Disease Visit [facility] Start: 1977 Anxiety Screening Anxiety Screening [facility] Start: 1977 Hepatitis B surface antibody level LDL Cholesterol [facility] Start: 1977 Hepatitis C screening Hepatitis C Screening [facility] Start: 1977 HIV screening HIV Screening [facility] Start: 1977 Spirometry Spirometry [facility] Start: 1969 Diabetic foot examination Diabetic Foot Exam [facility] Start: 1969 Glaucoma screening Dilated Retinal Exam [facility] Start: 1969 Hepatitis B screening Urine Albumin:Creatinine Ratio [facility] Start: 1964 Hemoglobin A1c measurement HbA1C [facility] anthony Anion gap measurement [facility] BUN/Creatinine ratio [facility] Calcium [Mass/volume ] in Serum or Plasma [facility] Carbon dioxide, tota l [Moles/volume] in Serum or Plasma [facility] Chloride [Moles/volu me] in Serum or Plasma [facility] Creatinine [Moles/vo lume] in Serum or Plasma [facility] Glucose [Mass/volume ] in Serum or Plasma [facility] Hematocrit [Volume Fraction] of Blood [facility] Hemoglobin [Mass/vol ume] in Blood [facility] Leukocytes [#/volume ] in Blood [facility] Mean corpuscular hemoglobin concentration determination [facility] Mean corpuscular hemoglobin determination [facility] Measurement of renal function [facility] Neutrophil count [facility] Neutrophil percent differential count [facility] Patient Education [facility] Work Phone: Patient referral [facility] Work Phone: Platelets [#/volume] in Blood [facility] Potassium [Moles/vol ume] in Serum or Plasma [facility] Red blood cell count [facility] Red cell distributio n width determination [facility] Sodium [Moles/volume ] in Serum or Plasma [facility] Urea nitrogen [Mass/volume] in Serum or Plasma [facility] Immunizations Immunization Date Immunization Notes Care Provider Maria Luz klein 02-13-2022 tetanus toxoid, redu jung diphtheria toxoid, and acellular pertussis vaccine, adsorbed [facility] Payers Date Payer Category Payer Medicare (Managed Care) [facility] [id number] 2024 Self-pay [id number] 2022 Medicare [id number] 2001 [place] [id number] 2001 Medicaid [id number] 1987 Medicare [id number] Medicare [id number] Unknown [id number] Unknown [id number] Unknown [id number] Unknown [id number] Unknown [id number] 462 Unknown [id number] 462 Unknown [id number] 2..[id number] 462 Unknown [id number]..[id number] 462 Unknown [id number] 462 Unknown [id number] [id number] 462 Unknown [id number] 462 Unknown [id number] 462 Social History Date Type Detail Facility Start: 05-11-2021 End: 01-11-2024 Tobacco smoking status PRIS Unknown if ever smoked [facility] Start: 02-20-2021 None [facility] Start: 02-20-2021 Alone [facility] Start: 02-20-2021 Non-smoker [facility] Start: 1960 Sex Assigned At Male [facility] Start: 06-08-2024 End: 12-07-2024 Tobacco smoking status NHIS Never smoked tobacco [facility] Start: 12-07-2024 Tobacco use and exposure Smokeless tobacco non-user [facility] Start: 12-07-2024 Alcoholic beverage intake Current non-drinker of alcohol (finding) [facility] Start: 12-07-2024 History of Social function [facility] Start: 12-07-2024 Tobacco use panel [facility] Start: 1960 [facility] Goals Date Patient Goal Desired Activity /State Functional Status Date Assessment Result Facility 05-05-2023 Functional status Ambulates [facility] Work Phone: 10-18-2016 Are you deaf, or do you have serious difficulty hearing No 10/18/2016 10:49 AM Evelyne Crowell RN No [facility] 10-18-2016 Are you blind, or do you have serious difficulty seeing, even when wearing glasses No 10/18/2016 10:49 AM Evelyne Crowell RN No [facility] 10-18-2016 Do you have serious difficulty walking or climbing stairs No 10/18/2016 10:49 AM Evelyne Crowell RN No [facility] 10-18-2016 Do you have difficul ty dressing or bathing No 10/18/2016 10:49 AM Evelyne Crowell RN No [facility] 10-18-2016 Because of a physica l, mental, or emotional condition, do you have difficulty doing errands alone such as visiting a physician's office or shopping No 10/18/2016 10:49 AM Evelyne Crowell RN No [facility] Mental Status Date Assessment Result Facility 05-05-2023 Cognitive function Voice/Name [facility] Work Phone: 10-18-2016 Because of a physica l, mental, or emotional condition, do you have serious difficulty concentrating, remembering, or making decisions No 10/18/2016 10:49 AM Evelyne Crowell RN No [facility] Clinical Notes 05-04-2023 to 02-17-2025 Note Date & Type Note Facility 02-17-2025 Evaluation note Diagnosis Onset Date Resolution Dilated aortic root acute February 17, 2025 12:49pm DM type 2 (diabetes mellitus, type 2) acute February 17, 2025 12:49pm HFrEF (heart failure with reduced ejection fraction) acute February 17, 2025 12:49pm Hypertension chronic February 17 12:49pm Paroxysmal atrial fibrillation suspected February 17, 2025 12:49pm [facility] Work Phone: 1(694) 564-911003-22-2025 NoteHNO ID: [id number] Author: NURYS SALAZAR APRN.SYSTEM DISPATCHER Service: ? Author Type: Nurse Practitioner Type: Progress Notes Filed: 12/07/2024 11:58 Note Text: This note was created using [employer]. Subjective Eloina Tovar is a 64 year old male. HPI For about a week pt feels as though his bilateral ears are impacted. Review of Systems Constitutional: Negative for fever. HENT: Negative for congestion and ear pain. Respiratory: Negative for cough. Objective BP 128/90 Pulse 60 Temp 36.1 ?C (97 ?F) Resp 20 Wt 116 kg (255 lb 11.7 oz) SpO2 97% BMI 38.88 kg/m? Physical Exam Vitals and nursing note reviewed. Constitutional: General: He is not in acute distress. Appearance: Normal appearance. He is not ill-appearing. HENT: Head: Normocephalic. Right Ear: There is impacted cerumen. Left Ear: There is impacted cerumen. Mouth/Throat: Mouth: Mucous membranes are moist. Eyes: Conjunctiva/sclera: Conjunctivae normal. Cardiovascular: Rate and Rhythm: Normal rate and regular rhythm. Pulmonary: Effort: Pulmonary effort is normal. Breath sounds: Normal breath sounds. Musculoskeletal: General: Normal range of motion. Cervical back: Normal range of motion. Skin: General: Skin is warm and dry. Neurological: General: No focal deficit present. Mental Status: He is alert. Psychiatric: Mood and Affect: Mood normal. Behavior: Behavior normal. Assessment and Plan ASSESSMENT/PLAN: 1. Bilateral impacted cerumen - ICD9: 380.4, ICD10: H61.23 Nursing staff flushed out bilateral ears with good results. Bilateral tympanic membranes unremarkable on reevaluation. Patient discharged. Nurys Salazar APRN.[facility]03-22-2025 History of Present illness Narrative* Nurys Salazar APRN.[facility] - 12/07/2024 11:11 AM EDT This note was created using [employer]. Subjective Eloina Tovar is a 64 year old male. HPI For about a week pt feels as though his bilateral ears are impacted. Review of Systems Constitutional: Negative for fever. HENT: Negative for congestion and ear pain. Respiratory: Negative for cough. Objective BP 128/90 Pulse 60 Temp 36.1 C (97 F) Resp 20 Wt 116 kg (255 lb 11.7 oz) SpO2 97% BMI 38.88 kg/m Physical Exam Vitals and nursing note reviewed. Constitutional: General: He is not in acute distress. Appearance: Normal appearance. He is not ill-appearing. HENT: Head: Normocephalic. Right Ear: There is impacted cerumen. Left Ear: There is impacted cerumen. Mouth/Throat: Mouth: Mucous membranes are moist. Eyes: Conjunctiva/sclera: Conjunctivae normal. Cardiovascular: Rate and Rhythm: Normal rate and regular rhythm. Pulmonary: Effort: Pulmonary effort is normal. Breath sounds: Normal breath sounds. Musculoskeletal: General: Normal range of motion. Cervical back: Normal range of motion. Skin: General: Skin is warm and dry. Neurological: General: No focal deficit present. Mental Status: He is alert. Psychiatric: Mood and Affect: Mood normal. Behavior: Behavior normal. Assessment and Plan ASSESSMENT/PLAN: 1. Bilateral impacted cerumen - ICD9: 380.4, ICD10: H61.23 Nursing staff flushed out bilateral ears with good results. Bilateral tympanic membranes unremarkable on reevaluation. Patient discharged. Nurys Salazar APRN.CNP [facility] Discharge summary Author Marco Whiteside [facility] May 05, 2023 2:44pm Note Date/Time May 05, 2023 2: 37pm [facility] Medical Records Department [address] [place] [id number] Discharge Summary 05/05/23 1401 MR#: [id number] Acct: [id number] Name: ELOINA TOVAR Rep #:[id number] : 1960 63 From: Marco longoria MD PCP: Dr. Eduin Watts MD Status:ADM I NO Location: [place] [address] Providers Date of Admission: 05/04/23 Primary Care Physician: Dr. Eduin Watts MD Consultations 05/04/23 20:41 Consult: Cardiology Routine Consulting Provider: Arben Arguello Reason for Consult: Chest Pain EMERGENT Consult: No Notified: Yes Date Notified: 05/04/23 Time Notified: 19:22 Method of Notification: ED Physician Initiated 05/05/23 10:07 Consult: Vascular Surgery Routine Consulting Provider: Miguel Angel Lopes Reason for Consult: Concern for aortic aneurysm EMERGENT Consult: No Notified: Yes Date Notified: 05/05/23 Time Notified: 10:27 Method of Notification: Text Reason For Visit: CHEST PAIN Diagnosis Discharge Diagnosis (1) Unstable angina: Status: Acute Code(s): I20.0 - Unstable angina Medications at Discharge Home Medications albuterol sulfate 90 mcg/actuation aerosol inhaler 1 - 2 puff inhalation Q4H PRNPRN Sob &/Or Wheezing 04/02/19 escitalopram oxalate 10 mg tablet 10 mg PO DAILY 07/31/20 nitroglycerin 0.4 mg sublingual tablet 0.4 mg sublingual Q5-15M PRN Chest Pain 09/28/20 bupropion HCl 150 mg tablet,12 hr sustained-release (Wellbutrin SR) 150 mg PO BID 09/29/20 oxcarbazepine 150 mg tablet 150 mg PO BID #60 tabs 09/29/20 oxcarbazepine 300 mg tablet 300 mg PO BID 05/05/21 apixaban 5 mg (74 tabs) tablets in a dose pack (Eliquis DVT-PE Treat 30D Start) 5 mg PO BID 11/07/22 lisinopril 10 mg tablet 10 mg PO DAILY #30 tabs 03/30/23 carvedilol 3.125 mg tablet 3.125 mg PO BID #60 tabs 05/04/23 isosorbide mononitrate 30 mg tablet,extended release 24 hr 30 mg PO DAILY #30 tabs 05/05/23 Hospital Course Operations None Procedures 2-D Echocardiogram Summary of Care Provided Minutes Spent on Discharge: 36 Hospital Course: Per HPI: ELOINA TOVAR, is a 63 M with a significant history of cardiac arrest;COPD; seizure disorder; DVT; PE; proximal A-fib morbid obesity status post bariatric surgery; colon cancer status post colectomy; seizure disorder; CAD butwith no stents who presents to the emergency department with 3 to 4-day history of progressively worsening shortness of breath. His shortness of breath worsenswith exertion. His shortness of breath improved with rest. Associated with hissymptoms is substernal chest pain that is intermittent and of high intensity of 6 out of 10. His chest pain radiated to underneath his left breast. His chest pain improves with rest and worsens with exertion. He described chest pain as apunch to his chest.. Further he reports nausea and diaphoresis. Also he reports presyncope where he blacked out. About 3 to 4-day before presentation he took nitroglycerin for chest pain but the nitroglycerin did not help him. Further patient reports chronic orthopnea. Also he has paroxysmal nocturnal dyspnea. Three days before presentation he called and saw his PCP at the office. His PCP prescribed antibiotic for possible bronchitis. Emergency department discussed the case with cardiology who recommended patient's Eliquis be held for possible cath next day. Hospital Course: 1. Unstable angina/A-fib/HTN/HLD/chronic systolic CHF/4 cm aortic root?63-year-old male presented to the hospital with unknown cardiac history. He washaving what was felt to be unstable angina. Cardiology was consulted and was placed on a heparin drip. Cardiology felt that he would be safe for discharge and to be evaluated for his aortic root. They recommend starting him on Imdur 30 mg daily with outpatient follow-up for possible heart cath at a later time. Of note his echo did demonstrate an increased size in his aortic root from prior. I discussed with him the plan for discharge and he expressed understanding of the risk and benefits of going home and is okay with going hometoday. I do recommend outpatient follow-up with his PCP in 3 to 5 days and cardiology within the next 2 weeks. 2. Anxiety, depression, seizure disorder are all chronic issues which complicate his care. His home medications were continued where appropriate Weight / BMI Weight Weight: 257 lb 15.053 oz Body Mass Index (BMI) 38.0 ABG / Lab / Microbiology Data 05/05/23 05:10 05/05/23 05:10 Laboratory: Laboratory Results - last 24 hr 05/04/23 16:59: WBC 6.8, RBC 4.30 L, Hgb 13.7, Hct 42.0, MCV 97.7 H, MCH 31.9, MCHC 32.6, RDW Std Deviation 47.9 H, RDW Coeff of Wenceslao 13.5, Plt Count 244, MPV 9.9, Immature Gran % (Auto) 0.300, Neut % (Auto) 74.8 H, Lymph % (Auto) 11.6 L, Edmonson % (Auto) 10.7 H, Eos % (Auto) 1.9, Baso % (Auto) 0.7, Absolute Neuts (auto)5.1, Absolute Lymphs (auto) 0.79 L, Nucleated RBC % 0, Sodium 139, Potassium 5.1, Chloride 108 H, Carbon Dioxide 23.0, Anion Gap 8, BUN 28 H, Creatinine 1.90H, Estim Creat Clear Calc 39.28, Est GFR (MDRD) Af Amer 46 L, Est GFR (MDRD) Non-Af 38 L, BUN/Creatinine Ratio 14.7, Glucose 80, Calcium 9.5, Troponin I HighSens 7 05/04/23 19:30: Troponin I High Sens 7 05/04/23 20:58: PT 16.2 H, INR 1.3, APTT 32.1 05/04/23 22:31: Troponin I High Sens 8 05/05/23 05:10: WBC 4.9, RBC 4.05 L, Hgb 13.0, Hct 40.1, MCV 99.0 H, MCH 32.1 H,MCHC 32.4, RDW Std Deviation 49.1 H, RDW Coeff of Wenceslao 13.6, Plt Count 212, MPV 9.7, Immature Gran % (Auto) 0.200, Neut % (Auto) 58.9, Lymph % (Auto) 24.5, Edmonson% (Auto) 12.3 H, Eos % (Auto) 3.1, Baso % (Auto) 1.0, Absolute Neuts (auto) 2.9,Absolute Lymphs (auto) 1.20, Nucleated RBC % 0, APTT 94.9 H*, Sodium 140, Potassium 4.9, Chloride 109 H, Carbon Dioxide 27.0, Anion Gap 4 L, BUN 25 H, Creatinine 1.20, Estim Creat Clear Calc 62.19, Est GFR (MDRD) Af Amer 78, Est GFR (MDRD) Non-Af 65, BUN/Creatinine Ratio 20.8 H, Glucose 79, Calcium 8.9 05/05/23 13:18: APTT 48.6 H Radiography Diagnostic Testing: Radiology Impression Chest X-Ray 05/04/23 16:45 IMPRESSION: No definite acute or significant abnormality seen. Electronically Signed: Roberto Murguia MD at 17:17 EDT , Chest CTA 05/05/23 10:07 IMPRESSION: No evidence of pulmonary embolism. Coronary artery calcification. Prior bariatric surgery with postoperative changes and hernia repair in the upper mid abdomen. Electronically Signed: Carlos Shepherd MD at 11:21 EDT , D/C Instructions Discharge Diet: Low fat / Low cholesterol Call your doctor if you observe: Fever of 101 or Higher, Shortness of breath, Dizziness, Fainting spells, Swelling in the ankles, Chest pain and Increased palpitations (irregular heartbeat) Meaningful Use Info Meaningful Use Diagnoses (Choose all that apply): None applicable Discharge Plan Admission Admit Date/Time: 05/04/23 19:15 Attending Provider: Marco Whiteside Primary Care Provider: Eduin Watts Consulting Providers: Arben Arguello; Ramy Calvo; Miguel Angel Lopes Discharge Orders/Prescriptions Prescriptions: New isosorbide mononitrate 30 mg tablet extended release 24 hr 30 mg PO DAILY Qty: 30 0RF Continued nitroglycerin 0.4 mg tablet, sublingual 0.4 mg SUBLINGUAL Q5-15M PRN (Reason: Chest Pain) Rx Instructions: do not exceed 3 doses per episode bupropion HCl [Wellbutrin SR] 150 mg tablet sustained-release 12 hr 150 mg PO BID oxcarbazepine 150 mg tablet 150 mg PO BID Qty: 60 3RF oxcarbazepine 300 mg tablet 300 mg PO BID Eliquis DVT-PE Treat 30D Start 5 mg (74 tabs) tablets,dose pack 5 mg PO BID lisinopril 10 mg tablet 10 mg PO DAILY Qty: 30 6RF albuterol sulfate 1 PUFF inhaler 1 - 2 puff INHALATION Q4H PRN PRN (Reason: Sob &/Or Wheezing) escitalopram oxalate 10 MG tablet 10 mg PO DAILY carvedilol 3.125 mg tablet 3.125 mg PO BID Qty: 60 6RF Rx Instructions: must administer with a meal/food Referrals / Follow Up: Eduin Watts MD [Primary Care Provider] - Within 1 Week Gina Leblanc PA [Med Staff - Adv Practice Prof] - Within 2 Weeks Disposition Disposition (needs filled in before D/C Order can be placed): Home, Self Care Charges/Coding Visit Charges Inpatient E&M: 39894 Disch Hosp >30min 05/05/23 1444 <Electronically signed by Marco Whiteside MD> Cosigner Signature (if applicable): CC: Dr. Marco Whiteside MD; Dr. Eduin Watts MD~ Signed [facility] Work Phone: [phone]) [phone] Consult note Author Gina Leblanc [facility] May 05, 2023 2:05pm Note Date/Time May 05, 2023 8: 41am [facility] Medical Records Department [address] [place] [address] Consultation - Cardiology 05/05/2338 MR#: [id number] Acct: [id number] Name: ELOINA TOVAR Rep #:[id number] : 1960 63 From: Gina HARGROVE PCP: Dr. Eduin Watts MD Status:ADM I NO Location: [place] [address] Assessment & Plan Assessment/Plan (1) Chest pain: (2) Essential (primary) hypertension: (3) Hyperlipidemia: (4) Dilated aortic root: PLAN: Plan * Patient's troponins were negative. He currently is not having any chest discomfort. Reviewed recent stress test from October 2022, this was negative for ischemia. Did obtain a cardiac CT as we were concerned that his chest pain could be related to his dilated aorta as on his echocardiogram it did demonstrate an increase in his aortic root. This was negative for dissecting aneurysm. Feel that we can treat this medically by adding isosorbide. We will have patient follow-up in the office in the near future. If his chest pain continues would then pursue a diagnostic heart catheterization. HPI Consult Data Date of Consult: 05/05/23 HPI Narrative HPI Narrative: ELOINA TOVAR, is a 63 M who presented to [facility] ER on 05/04/23 with increase SOB, diaphoresis and chest pain. He states with any exertion he gets extremely short of breath and he feels like there is a constriction around his neck. He will also get pain under the left breast area and will break out in a sweat. When he sits to rest symptoms will slightly improve. Patient was admitted to [facility] further evaluation. His troponins were negative. Patient was last seen in our office in March 2023. He does have a history of hypertension and atrial fibrillation. Patient had a stress test in October 2022 which was negative for ischemia. Echocardiogram in July 2022 demonstrated mildly reduced ejection fraction of 45%. Mild to moderate dilated aortic root. Mild aortic insufficiency. [facility] Medical History AA (alcohol abuse) Abscess of right leg Arthritis Bronchial asthma Chronic pain syndrome COPD (chronic obstructive pulmonary disease) DM type 2 (diabetes mellitus, type 2) JOVEL (dyspnea on exertion) Dog bite of right calf Epilepsy undetermined as to focal or generalized, intractable Esophageal reflux Essential (primary) hypertension H/O: substance abuse History of colon cancer History of DVT (deep vein thrombosis) History of ETOH abuse History of suicide attempt Hyperlipidemia Migraine headache Morbid obesity Necrotizing soft tissue infection Neuropathy Personal hx-rectal/anal malignancy Post traumatic stress disorder (PTSD) Seizure disorder Home Medications albuterol sulfate 90 mcg/actuation aerosol inhaler 1 - 2 puff inhalation Q4H PRNPRN Sob &/Or Wheezing 04/02/19 [History Last Taken 04/02/19] escitalopram oxalate 10 mg tablet 10 mg PO DAILY 07/31/20 [History Last Taken Unknown] nitroglycerin 0.4 mg sublingual tablet 0.4 mg sublingual Q5-15M PRN Chest Pain 09/28/20 [History Last Taken Unknown] bupropion HCl 150 mg tablet,12 hr sustained-release (Wellbutrin SR) 150 mg PO BID 09/29/20 [History Last Taken Unknown] oxcarbazepine 150 mg tablet 150 mg PO BID #60 tabs 09/29/20 [Rx Last Taken Unknown] oxcarbazepine 300 mg tablet 300 mg PO BID 05/05/21 [History Last Taken Unknown] apixaban 5 mg (74 tabs) tablets in a dose pack (Eliquis DVT-PE Treat 30D Start) 5 mg PO BID 11/07/22 [History Last Taken Unknown] lisinopril 10 mg tablet 10 mg PO DAILY #30 tabs 03/30/23 [Rx Last Taken Unknown] carvedilol 3.125 mg tablet 3.125 mg PO BID #60 tabs 05/04/23 [Rx Last Taken Unknown] isosorbide mononitrate 30 mg tablet,extended release 24 hr 30 mg PO DAILY #30 tabs 05/05/23 [Rx Last Taken Unknown] Allergy/AdvReac Type Severity Reaction Status Date / Time meperidine HCl [From Demerol] Allergy Unknown Verified 05/04/23 16:03 Milk Containing Products Allergy Anaphylaxis Verified 05/04/23 16:03 (Dairy) [Milk Containing Products] penicillin G Allergy Hives Verified 05/04/23 16:03 wheat Allergy Other Verified 05/04/23 16:03 potassium AdvReac Other Verified 05/04/23 16:03 Surgical History History of bariatric surgery (2000) History of cervical spinal surgery History of left heart catheterization (03/1997) Social History Smoking Status: Never smoker Electronic Cigarette Use: not used alcohol intake: former year quit: 1999 substance use type: former substance user Date of last use: 20 years, Fentynal 4 years, crack/cocaine, heroin, painkillers and other details: LSD ROS Constitutional Constitutional: Denies change in weight, chills, fatigue, frequent falls, headache(s) or lethargy Eyes Eyes: Denies acute decrease in peripheral vision, blurry vision or change in vision ENT HEENT: Reports dizziness; Denies dry mouth, epistaxis, headache(s), tinnitus or vertigo Cardiovascular Cardiovascular: Reports chest pain at rest, chest pain with activity, dyspnea onexertion and lightheadedness; Denies claudication, dyspnea at rest, edema, irregular heart rhythm, orthopnea, orthostatic symptoms, palpitations or pedal edema Respiratory/Chest Respiratory/Chest: Denies cough, dyspnea, dyspnea on exertion, tachypnea or wheezing Gastrointestinal Gastrointestinal: Denies abdominal pain, bloating, coffee ground emesis, diarrhea, heartburn, hematemesis, hematochezia, melena or nausea Genitourinary Genitourinary: Denies hematuria Musculoskeletal Musculoskeletal: Denies myalgias, numbness or tingling Neurologic Neurologic: Denies abnormal gait, abnormal speech, memory loss, paresthesias or weakness Physical Exam Const alert, oriented x3, no apparent distress and healthy appearing HEENT normocephalic, head/scalp atraumatic, hearing grossly normal bilaterally, external ears normal, external nose normal and moist oral mucous membranes Eyes PERRL, EOMs intact bilaterally, conjunctivae normal and no scleral icterus Neck no lymphadenopathy, supple and no JVD Resp normal respiratory effort and clear to auscultation bilaterally Cardio regular rate, regular rhythm, S1 normal heart sound, S2 normal heart sound, no murmurs, no rub, no gallops, no clicks, no JVD and peripheral pulses 2+ throughout GI normal to inspection, nondistended, normoactive bowel sounds, soft to palpation,non-tender and non-distended Extremity normal to inspection, normal capillary refill, no clubbing, cyanosis or edema and no pedal edema Neuro oriented x3, CN's II-XII intact bilaterally, moves all extremities and no focal motor deficits Psych cooperative and affect normal Risk Stratification Risk Stratification Applicable: Yes >/= 3 CAD Risk Factors (HTN, HLD, DM, family hx of CAD, or current smoker): Yes Aspirin Use in the Past 7 Days: No Severe Angina (>/= episodes in 24 hours): Yes EKG ST Changes >/= 0.5mm: No Positive Cardiac Marker: No Objective Data Vital Signs: Vital Signs Temp Pulse Resp BP Pulse Ox O2 Del Method 97.8 F 63 16 109/85 H 93 Room Air 05/05/23 05:17 05/05/23 05:17 05/05/23 05:17 05/05/23 05:17 05/05/23 05:17 05/05/23 07:44 Oxygen Delivery Method Room Air Weight: 257 lb 15.053 oz Body Mass Index (BMI) 38.0 Intake & Output: Intake and Output for Last 24 Hours 05/03/23 05/04/23 05/05/23 23:59 23:59 23:59 Intake Total 71.67 / 71.67 Balance 71.67 / 71.67 Lab / Micro Data 05/05/23 05:10 05/05/23 05:10 Labs: Laboratory Results - last 24 hr 05/04/23 16:59: WBC 6.8, RBC 4.30 L, Hgb 13.7, Hct 42.0, MCV 97.7 H, MCH 31.9, MCHC 32.6, RDW Std Deviation 47.9 H, RDW Coeff of Wenceslao 13.5, Plt Count 244, MPV 9.9, Immature Gran % (Auto) 0.300, Neut % (Auto) 74.8 H, Lymph % (Auto) 11.6 L, Edmonson % (Auto) 10.7 H, Eos % (Auto) 1.9, Baso % (Auto) 0.7, Absolute Neuts (auto)5.1, Absolute Lymphs (auto) 0.79 L, Nucleated RBC % 0, Sodium 139, Potassium 5.1, Chloride 108 H, Carbon Dioxide 23.0, Anion Gap 8, BUN 28 H, Creatinine 1.90H, Estim Creat Clear Calc 39.28, Est GFR (MDRD) Af Amer 46 L, Est GFR (MDRD) Non-Af 38 L, BUN/Creatinine Ratio 14.7, Glucose 80, Calcium 9.5, Troponin I HighSens 7 05/04/23 19:30: Troponin I High Sens 7 05/04/23 20:58: PT 16.2 H, INR 1.3, APTT 32.1 05/04/23 22:31: Troponin I High Sens 8 05/05/23 05:10: WBC 4.9, RBC 4.05 L, Hgb 13.0, Hct 40.1, MCV 99.0 H, MCH 32.1 H,MCHC 32.4, RDW Std Deviation 49.1 H, RDW Coeff of Wenceslao 13.6, Plt Count 212, MPV 9.7, Immature Gran % (Auto) 0.200, Neut % (Auto) 58.9, Lymph % (Auto) 24.5, Edmonson% (Auto) 12.3 H, Eos % (Auto) 3.1, Baso % (Auto) 1.0, Absolute Neuts (auto) 2.9,Absolute Lymphs (auto) 1.20, Nucleated RBC % 0, APTT 94.9 H*, Sodium 140, Potassium 4.9, Chloride 109 H, Carbon Dioxide 27.0, Anion Gap 4 L, BUN 25 H, Creatinine 1.20, Estim Creat Clear Calc 62.19, Est GFR (MDRD) Af Amer 78, Est GFR (MDRD) Non-Af 65, BUN/Creatinine Ratio 20.8 H, Glucose 79, Calcium 8.9 Cardiology Labs/Tests 05/04/23 16:59: WBC 6.8, RBC 4.30 L, Hgb 13.7, Hct 42.0, MCV 97.7 H, MCH 31.9, MCHC 32.6, Plt Count 244, MPV 9.9, Immature Gran % (Auto) 0.300, Neut % (Auto) 74.8 H, Lymph % (Auto) 11.6 L, Edmonson % (Auto) 10.7 H, Eos % (Auto) 1.9, Baso % (Auto) 0.7, Absolute Neuts (auto) 5.1, Nucleated RBC % 0, Sodium 139, Potassium 5.1, Chloride 108 H, Carbon Dioxide 23.0, Anion Gap 8, BUN 28 H, Creatinine 1.90H, Est GFR (MDRD) Af Amer 46 L, Est GFR (MDRD) Non-Af 38 L, BUN/Creatinine Ratio14.7, Glucose 80, Calcium 9.5 05/04/23 20:58: PT 16.2 H, INR 1.3, APTT 32.1 05/05/23 05:10: WBC 4.9, RBC 4.05 L, Hgb 13.0, Hct 40.1, MCV 99.0 H, MCH 32.1 H,MCHC 32.4, Plt Count 212, MPV 9.7, Immature Gran % (Auto) 0.200, Neut % (Auto) 58.9, Lymph % (Auto) 24.5, Edmonson % (Auto) 12.3 H, Eos % (Auto) 3.1, Baso % (Auto)1.0, Absolute Neuts (auto) 2.9, Nucleated RBC % 0, APTT 94.9 H*, Sodium 140, Potassium 4.9, Chloride 109 H, Carbon Dioxide 27.0, Anion Gap 4 L, BUN 25 H, Creatinine 1.20, Est GFR (MDRD) Af Amer 78, Est GFR (MDRD) Non-Af 65, BUN/Creatinine Ratio 20.8 H, Glucose 79, Calcium 8.9 Radiography Diagnostic Testing: Radiology Impression Chest X-Ray 05/04/23 16:45 IMPRESSION: No definite acute or significant abnormality seen. Electronically Signed: Roberto Murguia MD at 17:17 EDT , 05/05/23 1405 <Electronically signed by Gina HARGROVE> Cosigner Signature (if applicable): CC: Dr. Miguel Angel Lopes MD; Dr. Arben Arguello MD; Dr. Ramy Calvo MD; Dr. Eduin Watts MD~ Signed [facility] Work Phone: [phone] Discharge summary Author Marco Whiteside [facility] May 05, 2023 1:40pm Note Date/Time May 05, 2023 1: 36pm [facility] Medical Records Department [address] [place] [address] Instructions for Home/Discharge Instructions 05/05/23 1313 MR#: [id number] Acct: [id number] Name: ELOINA TOVAR Rep #:[id number] : 1960 63 From: Marco longoria MD PCP: Dr. Eduin Watts MD Status:ADM I NO Discharge Instructions Diet Discharge Diet: Low fat / Low cholesterol Activity Discharge Activity: Return to Normal Activity Dressing / Incision Call your doctor if you observe: Fever of 101 or Higher, Shortness of breath, Dizziness, Fainting spells, Swelling in the ankles, Chest pain and Increased palpitations (irregular heartbeat) Follow Up Care Test Results: Test results from this visit will be discussed in further detail at your follow- up appointment, if applicable. Discharge Plan Admission Admit Date/Time: 05/04/23 19:15 Attending Provider: Marco Whiteside Primary Care Provider: Eduin Watts Consulting Providers: Arben Arguello; Ramy Calvo; Miguel Angel Lopes Discharge Orders/Prescriptions Prescriptions: New isosorbide mononitrate 30 mg tablet extended release 24 hr 30 mg PO DAILY Qty: 30 0RF Continued nitroglycerin 0.4 mg tablet, sublingual 0.4 mg SUBLINGUAL Q5-15M PRN (Reason: Chest Pain) Rx Instructions: do not exceed 3 doses per episode bupropion HCl [Wellbutrin SR] 150 mg tablet sustained-release 12 hr 150 mg PO BID oxcarbazepine 150 mg tablet 150 mg PO BID Qty: 60 3RF oxcarbazepine 300 mg tablet 300 mg PO BID Eliquis DVT-PE Treat 30D Start 5 mg (74 tabs) tablets,dose pack 5 mg PO BID lisinopril 10 mg tablet 10 mg PO DAILY Qty: 30 6RF albuterol sulfate 1 PUFF inhaler 1 - 2 puff INHALATION Q4H PRN PRN (Reason: Sob &/Or Wheezing) escitalopram oxalate 10 MG tablet 10 mg PO DAILY carvedilol 3.125 mg tablet 3.125 mg PO BID Qty: 60 6RF Rx Instructions: must administer with a meal/food Referrals / Follow Up: Eduin Watts MD [Primary Care Provider] - Within 1 Week Gina Leblanc PA [Med Staff - Adv Practice Prof] - Within 2 Weeks Disposition Disposition (needs filled in before D/C Order can be placed): Home, Self Care 05/05/23 1340<Electronically signed by Marco Whiteside MD>Marco Whiteside MD CC: Dr. Miguel Angel Lopse MD; Dr. Arben Arguello MD; Dr. Ramy Calvo MD; Dr. Eduin Watts MD ~ Signed [facility] Work Phone: [phone]) 284-901608-18-2023 Progress note Author Marcogabriella Whiteside [facility] May 05, 2023 10:35am Note Date/Time May 05, 2023 10 :35am [facility] Medical Records Department [address] [place] [address] Progress Note - Hospitalist 05/05/23 1031 MR#: [id number] Acct: [id number] Name: ELOINA TOVAR Rep #:[id number] : 1960 63 From: Marco longoria MD PCP: Dr. Eduin Watts MD Status:ADM I NO Location: [place] [address] Subjective Subjective Doing well, no issues overnight. Chest pains improved. Troponins are normal Objective Data Objective Data Vital Signs: Vital Signs Temp Pulse Resp BP Pulse Ox O2 Del Method 98.1 F 65 95 H 123/84 H 96 Room Air 05/05/23 10:15 05/05/23 10:15 05/05/23 10:15 05/05/23 10:15 05/05/23 10:15 05/05/23 10:15 Oxygen Delivery Method Room Air Weight: 257 lb 15.053 oz Body Mass Index (BMI) 38.0 Intake & Output: Intake and Output for Last 24 Hours 05/04/23 05/05/23 05/06/23 03:59 03:59 03:59 Intake Total 71.67 / 71.67 Balance 71.67 / 71.67 Lab / Micro Data 05/05/23 05:10 05/05/23 05:10 Labs: Laboratory Results - last 24 hr 05/04/23 16:59: WBC 6.8, RBC 4.30 L, Hgb 13.7, Hct 42.0, MCV 97.7 H, MCH 31.9, MCHC 32.6, RDW Std Deviation 47.9 H, RDW Coeff of Wenceslao 13.5, Plt Count 244, MPV 9.9, Immature Gran % (Auto) 0.300, Neut % (Auto) 74.8 H, Lymph % (Auto) 11.6 L, Edmonson % (Auto) 10.7 H, Eos % (Auto) 1.9, Baso % (Auto) 0.7, Absolute Neuts (auto)5.1, Absolute Lymphs (auto) 0.79 L, Nucleated RBC % 0, Sodium 139, Potassium 5.1, Chloride 108 H, Carbon Dioxide 23.0, Anion Gap 8, BUN 28 H, Creatinine 1.90H, Estim Creat Clear Calc 39.28, Est GFR (MDRD) Af Amer 46 L, Est GFR (MDRD) Non-Af 38 L, BUN/Creatinine Ratio 14.7, Glucose 80, Calcium 9.5, Troponin I HighSens 7 05/04/23 19:30: Troponin I High Sens 7 05/04/23 20:58: PT 16.2 H, INR 1.3, APTT 32.1 05/04/23 22:31: Troponin I High Sens 8 05/05/23 05:10: WBC 4.9, RBC 4.05 L, Hgb 13.0, Hct 40.1, MCV 99.0 H, MCH 32.1 H,MCHC 32.4, RDW Std Deviation 49.1 H, RDW Coeff of Wenceslao 13.6, Plt Count 212, MPV 9.7, Immature Gran % (Auto) 0.200, Neut % (Auto) 58.9, Lymph % (Auto) 24.5, Edmonson% (Auto) 12.3 H, Eos % (Auto) 3.1, Baso % (Auto) 1.0, Absolute Neuts (auto) 2.9,Absolute Lymphs (auto) 1.20, Nucleated RBC % 0, APTT 94.9 H*, Sodium 140, Potassium 4.9, Chloride 109 H, Carbon Dioxide 27.0, Anion Gap 4 L, BUN 25 H, Creatinine 1.20, Estim Creat Clear Calc 62.19, Est GFR (MDRD) Af Amer 78, Est GFR (MDRD) Non-Af 65, BUN/Creatinine Ratio 20.8 H, Glucose 79, Calcium 8.9 Radiography Diagnostic Testing: Radiology Impression Chest X-Ray 05/04/23 16:45 IMPRESSION: No definite acute or significant abnormality seen. Electronically Signed: Roberto Murguia MD at 17:17 EDT , Physical Exam Narrative General: Alert, Oriented x3, Cooperative, No apparent distress HEENT: Atraumatic, PERRLA, EOMI, Normocephalic Oral: Moist Mucosa Neck: Supple, No JVD Lungs: Diminished, Normal air movement, No rhonchi, No wheeze, No rales Cardiovascular: Regular rate, Regular Rhythm, Normal S1, Normal S2, No murmurs Abdomen: Soft, Non Tender, Non-Distended, No Hepato-splenomegaly Extremities: No edema, Capillary Refill Less than 3 Seconds Skin: No rashes, No breakdown Musculoskeletal: No Tenderness to Palpation of Joints or Extremities Neurological: Cranial nerves II-XII grossly intact, Motor Exam 5/5 strength throughout, Sensory exam intact to light touch and pain Psych/Mental Status: Normal Affect, Appropriate Assessment & Plan Assessment/Plan (1) Unstable angina: PLAN: Plan 1. Onset able angina/chest pain rule out/A-fib/HTN/HLD/chronic systolic CHF ? Continue with the heparin drip, awaiting echo results ? Appreciate cardiology's assistance for possible catheter afternoon ? Can home blood pressure medications ? Previous echo on 08/09/2022 showed an EF of 45% ? Continue statin ? After procedure can transition back to Eliquis 2. Anxiety/depression ? Stable ? Can resume home medic patient 3. Seizure disorder ? Stable ? Continue with his home antiseizure medications DVT: Heparin drip Charges/Coding Visit Charges Inpatient E&M: 94390 Subs Hosp L2 05/05/23 1035 <Electronically signed by Marco Whiteside MD> Cosigner Signature (if applicable): CC: ~ Signed [facility] Work Phone: [phone]) 410-363008-18-2023 Discharge summary Author Yolie Skinner [facility] May 05, 2023 1:47am Note Date/Time May 04, 2023 4: 43pm [facility] Medical Records Department [address] [place] [address] Emergency Department Summary 05/04/23 MR#: [id number] Acct: [id number] Name: ELOINA TOVAR Rep #:[id number] : 1960 63 From: Yolie Skinner MD PCP: Dr. Eduin Watts MD Status:ADM I NO Location: [address] History of Present Illness Chief Complaint: Shortness of Breath Informant: patient Onset/Context/Timing Onset: Days (5 days) Narrative Narrative: Patient presents with 5-day history of shortness of breath, diaphoresis, and chest pain. He states with any exertion he gets extremely short of breath and he feels like there is a constriction around his neck. He will also get pain under the left breast area and will break out in a sweat. When he sits to rest symptoms will slightly improve. He does have a history of COPD and CHF. He wasseen by his PCP on Monday who started him on an antibiotic. He was instructed if he does not improve he should come to the emergency room. Today he was helping to move some light objects from a garage to a home when he became very short of breath with chest pain and diaphoresis. He states his vision went black but he did not pass out. He does report history of heart disease with a bad heart valve. 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 [facility] Medical History AA (alcohol abuse) Abscess of right leg Arthritis Bronchial asthma Chronic pain syndrome COPD (chronic obstructive pulmonary disease) DM type 2 (diabetes mellitus, type 2) JOVEL (dyspnea on exertion) Dog bite of right calf Epilepsy undetermined as to focal or generalized, intractable Esophageal reflux Essential (primary) hypertension H/O: substance abuse History of colon cancer History of DVT (deep vein thrombosis) History of ETOH abuse History of suicide attempt Hyperlipidemia Migraine headache Morbid obesity Necrotizing soft tissue infection Neuropathy Personal hx-rectal/anal malignancy Post traumatic stress disorder (PTSD) Seizure disorder Home Medications budesonide 180 mcg/actuation breath activated powder inhaler 2 puff inhalation BID 02/14/15 [History Last Taken 04/01/19] salmeterol 50 mcg/dose blister powder for inhalation 2 puff inhalation DAILY 02/14/15 [History Last Taken 04/01/19] albuterol sulfate 90 mcg/actuation aerosol inhaler 1 - 2 puff inhalation Q4H PRNPRN Sob &/Or Wheezing 04/02/19 [History Last Taken 04/02/19] escitalopram oxalate 10 mg tablet 10 mg PO DAILY 07/31/20 [History Last Taken Unknown] nitroglycerin 0.4 mg sublingual tablet 0.4 mg sublingual Q5-15M PRN Chest Pain 09/28/20 [History Last Taken Unknown] bupropion HCl 150 mg tablet,12 hr sustained-release (Wellbutrin SR) 150 mg PO BID 09/29/20 [History Last Taken Unknown] oxcarbazepine 150 mg tablet 150 mg PO BID #60 tabs 09/29/20 [Rx Last Taken Unknown] oxcarbazepine 300 mg tablet 300 mg PO BID 05/05/21 [History Last Taken Unknown] apixaban 5 mg (74 tabs) tablets in a dose pack (Eliquis DVT-PE Treat 30D Start) 5 mg PO BID 11/07/22 [History Last Taken Unknown] lisinopril 10 mg tablet 10 mg PO DAILY #30 tabs 03/30/23 [Rx Last Taken Unknown] carvedilol 3.125 mg tablet 3.125 mg PO BID #60 tabs 05/04/23 [Rx Last Taken Unknown] Allergy/AdvReac Type Severity Reaction Status Date / Time [facility] Allergy Unknown Verified 05/04/23 16:03 Milk Containing Products Allergy Anaphylaxis Verified 05/04/23 16:03 (Dairy) [Milk Containing Products] penicillin G Allergy Hives Verified 05/04/23 16:03 wheat Allergy Other Verified 05/04/23 16:03 potassium AdvReac Other Verified 05/04/23 16:03 Surgical History History of bariatric surgery (2000) History of cervical spinal surgery History of left heart catheterization (03/1997) Social History Smoking Status: Never smoker Electronic Cigarette Use: not used alcohol intake: former year quit: 1999 substance use type: former substance user Date of last use: 20 years, Fentynal 4 years, crack/cocaine, heroin, painkillers and other details: LSD ROS ROS ED Constitutional Constitutional ED: Denies chills or fever(s) Eyes Eyes: Denies change in vision or discharge from eye(s) ENT ENT ED: Reports other Details: Tightness around throat with exertion ; Denies discharge from eye(s), rhinorrhea or sore throat Cardiovascular Cardiovascular: Reports chest pain; Denies palpitations Respiratory/Chest Respiratory/Chest: Reports dyspnea; Denies cough Gastrointestinal Gastrointestinal: Reports diarrhea; Denies abdominal pain, nausea or vomiting Genitourinary Genitourinary ED: Denies dysuria Musculoskeletal Musculoskeletal: Denies back pain or extremity pain Integumentary Denies Abrasions or rash Neurologic Neurologic: Denies headache(s) or weakness Psychiatric Psychiatric: Denies anxiety or depression Allergic/Immunologic Allergic/Immunologic ED: Denies lip swelling or urticaria EXAM Physical Exam Const Vital Signs: 05/04/23 16:03 05/04/23 16:39 05/04/23 17:13 Temperature 97.3 F L Temperature Source Temporal Pulse Rate 71 Respiratory Rate 18 Respiratory Effort Short of Breath Blood Pressure 95/64 Blood Pressure Mean 74 Pulse Ox 100 Oxygen Delivery Method Room Air Room Air Room Air Positive well nourished and well developed General Appearance ED: well developed HEENT Reports moist mucous membranes Eyes EOMs intact bilaterally Chest Wall inspection of chest normal and palpation of chest normal Resp normal respiratory effort and clear to auscultation bilaterally Cardio regular rate and regular rhythm GI non-tender Extremity normal to inspection Extremity Narrative: No significant lower extremity edema. Neuro oriented x3 and no sensory deficits noted Motor Exam: strength 5/5 throughout Psych mental status grossly normal Skin no rashes or lesions noted MDM MDM MDM Narrative Medical decision making narrative: Patient placed on cardiac cath technician. He is given aspirin. EKG obtained to evaluate for cardiac arrhythmia/ischemia. Labwork obtained to evaluate for leukocytosis, anemia, and electrolyte derangement. Chest x-ray obtained to evaluate for acute lung pathology, cardiac size, or mediastinal abnormality. History & Record Review Discussion w/independent historian: Patient and Family Additional record(s) reviewed:: Prior outpatient record, Prior ED visit and Prior labs Lab Data Attestation: I reviewed the patient's lab results. Labs: Laboratory Results - last 24 hr 05/04/23 16:59 WBC 6.8 RBC 4.30 L Hgb 13.7 Hct 42.0 MCV 97.7 H MCH 31.9 MCHC 32.6 RDW Std Deviation 47.9 H RDW Coeff of Wenceslao 13.5 Plt Count 244 MPV 9.9 Immature Gran % (Auto) 0.300 Neut % (Auto) 74.8 H Lymph % (Auto) 11.6 L Edmonson % (Auto) 10.7 H Eos % (Auto) 1.9 Baso % (Auto) 0.7 Absolute Neuts (auto) 5.1 Absolute Lymphs (auto) 0.79 L Nucleated RBC % 0 Sodium 139 Potassium 5.1 Chloride 108 H Carbon Dioxide 23.0 Anion Gap 8 BUN 28 H Creatinine 1.90 H Estim Creat Clear Calc 39.28 Est GFR (MDRD) Af Amer 46 L Est GFR (MDRD) Non-Af 38 L BUN/Creatinine Ratio 14.7 Glucose 80 Calcium 9.5 Troponin I High Sens 7 Radiography Chest X-Ray - ED: 1 View, Read by ED Physician, Chronic Changes and No Infiltrates Diagnostic Testing: Clinical Impression(s) from Imaging Studies Chest X-Ray 05/04/23 16:45 IMPRESSION: No definite acute or significant abnormality seen. Electronically Signed: Roberto Murguia MD at 17:17 EDT , EKG Initial EKG: Attestation: I personally reviewed and interpreted this EKG as follows: Interpretation: Sinus Rhythm (Sinus at 77 with PVCs. No acute ischemia.) Treatment and Re-Evaluation :: CBC was normal white count at 6.8 with a hemoglobin of 13.7. Chemistry studies reveal a creatinine of 1.9 with a BUN of 28. This is increased from a creatinine of 0.97 in January of this year. Troponin is normal at 7. Portable chest x-ray per my interpretation reveals no acute abnormalities with chronic changes noted. Radiology interpretation is reviewed. EKG reveals no evidence of acute ischemia at this time. I did review the last cardiology note. It appears that they were discussing repeating an echocardiogram but I do not see recommendations for a repeat cardiac cath. That being said, patient's symptoms are concerning and that with exertion he gets chest pain, shortness of breath, diaphoresis, and a constricting sensation around his neck. I spoke with Dr. Arguello, on-call for cardiology. He agrees with the patient's story is concerning. He would like to have the patient admitted as unstable angina for cycling of cardiac enzymes. His Eliquis should be held tonight and tomorrow morning. He would like to do a repeat echocardiogram tomorrow morning and a potential heart cath tomorrow afternoon. He will see the patient in consult. I will speak with the hospitalist. Discharge Plan Triage Chief Complaint: Shortness of Breath ED Provider: Yolie Skinner Dx/Rx/DC Orders Clinical Impression: Unstable angina Prescriptions: No Action nitroglycerin 0.4 mg tablet, sublingual 0.4 mg SUBLINGUAL Q5-15M PRN (Reason: Chest Pain) Rx Instructions: do not exceed 3 doses per episode bupropion HCl [Wellbutrin SR] 150 mg tablet sustained-release 12 hr 150 mg PO BID oxcarbazepine 150 mg tablet 150 mg PO BID Qty: 60 3RF oxcarbazepine 300 mg tablet 300 mg PO BID Eliquis DVT-PE Treat 30D Start 5 mg (74 tabs) tablets,dose pack 5 mg PO BID lisinopril 10 mg tablet 10 mg PO DAILY Qty: 30 6RF salmeterol 1 PUFF inhaler 2 puff INHALATION DAILY Patient Comments: breathing budesonide 1 PUFF inhaler 2 puff INHALATION BID Patient Comments: breathing albuterol sulfate 1 PUFF inhaler 1 - 2 puff INHALATION Q4H PRN PRN (Reason: Sob &/Or Wheezing) escitalopram oxalate 10 MG tablet 10 mg PO DAILY carvedilol 3.125 mg tablet 3.125 mg PO BID Qty: 60 6RF Rx Instructions: must administer with a meal/food Primary Care Provider: Eduin Watts Referrals: Eduin Watts MD [Primary Care Provider] - Disposition Disposition: Acute Care Hospital [facility] What to do if you have Problems For any increased pain, shortness of breath, bleeding, nausea or vomiting, chestpain, or any unexpected problems, contact your Primary Care Provider. Call [facility] ([phone]) or report to the closest Emergency Room. Call 911 if necessary. 05/05/23146 <Electronically signed by Yolie Skinner MD> Cosigner Signature (if applicable): CC: Dr. Eduin Watts MD ~ Signed [facility] Work Phone: [phone]) 486-891208-17-2023 History and physical note Author Ramy willy [facility] May 04, 2023 9:19pm Note Date/Time May 04, 2023 7: 27pm [facility] Medical Records Department [address] [place] [id number] H&P Exam - Hospitalist 05/04/231925 MR#: [id number] Acct: [id number] Name: ELOINA TOVAR Rep #:[id number] : 1960 63 From: Ramy Calvo MD PCP: Dr. Eduin Watts MD Status:ADM I NO Location: [facility] [id number] HPI - General General Date of Admission: 05/04/23 Date of Service: 05/04/23 Chief Complaint: sob HPI Narrative ELOINA TOVAR, is a 63 M with a significant history of cardiac arrest; COPD; seizure disorder; DVT; PE; proximal A-fib morbid obesity status post bariatric surgery; colon cancer status post colectomy; seizure disorder; CAD but with no stents who presents to the emergency department with 3 to 4-day history of progressively worsening shortness of breath. His shortness of breath worsens with exertion. His shortness of breath improved with rest. Associated with hissymptoms is substernal chest pain that is intermittent and of high intensity of 6 out of 10. His chest pain radiated to underneath his left breast. His chest pain improves with rest and worsens with exertion. He described chest pain as apunch to his chest.. Further he reports nausea and diaphoresis. Also he reports presyncope where he blacked out. About 3 to 4- day before presentation he took nitroglycerin for chest pain but the nitroglycerin did not help him. Further patient reports chronic orthopnea. Also he has paroxysmal nocturnal dyspnea. Three days before presentation he called and saw his PCP at the office. His PCP prescribed antibiotic for possible bronchitis. Emergency department discussed the case with cardiology who recommended patient's Eliquis be held for possible cath next day. [facility] Medical History AA (alcohol abuse) Abscess of right leg Arthritis Bronchial asthma Chronic pain syndrome COPD (chronic obstructive pulmonary disease) DM type 2 (diabetes mellitus, type 2) JOVEL (dyspnea on exertion) Dog bite of right calf Epilepsy undetermined as to focal or generalized, intractable Esophageal reflux Essential (primary) hypertension H/O: substance abuse History of colon cancer History of DVT (deep vein thrombosis) History of ETOH abuse History of suicide attempt Hyperlipidemia Migraine headache Morbid obesity Necrotizing soft tissue infection Neuropathy Personal hx-rectal/anal malignancy Post traumatic stress disorder (PTSD) Seizure disorder Home Medications albuterol sulfate 90 mcg/actuation aerosol inhaler 1 - 2 puff inhalation Q4H PRNPRN Sob &/Or Wheezing 04/02/19 [History Last Taken 04/02/19] escitalopram oxalate 10 mg tablet 10 mg PO DAILY 07/31/20 [History Last Taken Unknown] nitroglycerin 0.4 mg sublingual tablet 0.4 mg sublingual Q5-15M PRN Chest Pain 09/28/20 [History Last Taken Unknown] bupropion HCl 150 mg tablet,12 hr sustained-release (Wellbutrin SR) 150 mg PO BID 09/29/20 [History Last Taken Unknown] oxcarbazepine 150 mg tablet 150 mg PO BID #60 tabs 09/29/20 [Rx Last Taken Unknown] oxcarbazepine 300 mg tablet 300 mg PO BID 05/05/21 [History Last Taken Unknown] apixaban 5 mg (74 tabs) tablets in a dose pack ([employer] DVT-PE Treat 30D Start) 5 mg PO BID 11/07/22 [History Last Taken Unknown] lisinopril 10 mg tablet 10 mg PO DAILY #30 tabs 03/30/23 [Rx Last Taken Unknown] carvedilol 3.125 mg tablet 3.125 mg PO BID #60 tabs 05/04/23 [Rx Last Taken Unknown] Allergy/AdvReac Type Severity Reaction Status Date / Time meperidine HCl [From Demerol] Allergy Unknown Verified 05/04/23 16:03 Milk Containing Products Allergy Anaphylaxis Verified 05/04/23 16:03 (Dairy) [Milk Containing Products] penicillin G Allergy Hives Verified 05/04/23 16:03 wheat Allergy Other Verified 05/04/23 16:03 potassium AdvReac Other Verified 05/04/23 16:03 Surgical History History of bariatric surgery (2000) History of cervical spinal surgery History of left heart catheterization (03/1997) Social History Smoking Status: Never smoker Electronic Cigarette Use: not used alcohol intake: former year quit: 1999 substance use type: former substance user Date of last use: 20 years, Fentynal 4 years, crack/cocaine, heroin, painkillers and other details: LSD ROS ROS Narrative Pertinent positives and pertinent negatives as noted in HPI. All other systems were reviewed and are negative Vital Signs Vital Signs Vital Signs: 05/04/23 16:03 05/04/23 16:39 05/04/23 17:13 Temperature 97.3 F L Temperature Source Temporal Pulse Rate 71 Respiratory Rate 18 Respiratory Effort Short of Breath Blood Pressure 95/64 Blood Pressure Mean 74 Pulse Ox 100 Oxygen Delivery Method Room Air Room Air Room Air Weight Weight: 118.07 kg Body Mass Index (BMI) 38.4 Physical Exam Narrative Physical exam: General: Well-nourished, well-developed. Head: Normocephalic, atraumatic, no tenderness Eyes: Vision is grossly intact. EOMI ENT: Edentulous; moist mucous membranes, no rhinorrhea Neck: Nontender, No thyromegaly. CVS: Regular rate and rhythm. S1-S2 present. No murmur, gallop or rub. Respiratory : clear to auscultation bilaterally, chest wall nontender Abdomen: Soft, nontender, nondistended, normal bowel sounds, no masses : Deferred Back: Nontender, no CVA tenderness, no midline spinal tenderness, deformities, step-offs Extremities: Nontender full range of motion, no trauma Skin: Normal color, no trauma, abrasions Neuro: Alert, oriented, cranial nerves II through XII grossly intact. Psychiatry: Normal mood. Normal affect. Not depressed. Not anxious. Results Lab / Micro Data 05/04/23 16:59 05/04/23 16:59 Labs: Laboratory Results - last 24 hr 05/04/23 16:59: WBC 6.8, RBC 4.30 L, Hgb 13.7, Hct 42.0, MCV 97.7 H, MCH 31.9, MCHC 32.6, RDW Std Deviation 47.9 H, RDW Coeff of Wenceslao 13.5, Plt Count 244, MPV 9.9, Immature Gran % (Auto) 0.300, Neut % (Auto) 74.8 H, Lymph % (Auto) 11.6 L, Edmonson % (Auto) 10.7 H, Eos % (Auto) 1.9, Baso % (Auto) 0.7, Absolute Neuts (auto)5.1, Absolute Lymphs (auto) 0.79 L, Nucleated RBC % 0, Sodium 139, Potassium 5.1, Chloride 108 H, Carbon Dioxide 23.0, Anion Gap 8, BUN 28 H, Creatinine 1.90 H, Estim Creat Clear Calc 39.28, Est GFR (MDRD) Af Amer 46 L, Est GFR (MDRD) Non-Af 38 L, BUN/Creatinine Ratio 14.7, Glucose 80, Calcium 9.5, Troponin I High Sens 7 Radiology Impression Chest X-Ray 05/04/23 16:45 IMPRESSION: No definite acute or significant abnormality seen. Electronically Signed: Roberto Mruguia MD at 17:17 EDT , Assessment & Plan Assessment/Plan (1) Unstable angina: PLAN: Plan Unstable angina PET stress test on 11/14/2022 get ejection fraction was 49%. Normal pharmacological perfusion stress test. Echocardiogram on 08/09/2022 showed EF of 45%. Mild eccentric mitral valve insufficiency. Mild tricuspid valve insufficiency. Mild aortic valve insufficiency. The pulmonic valve was not well visualized. Per cardiology recommendation patient's Eliquis will be held. Also echocardiogram ordered per cardiology recommendation. We will keep n.p.o. aftermidnight. Initial troponin is unremarkable. Trend troponin. Daily aspirin ordered. Lipid panel 02/02/2023 showed LDL cholesterol of 90; triglyceride 47; cholesterol 155. EKG reviewed showed sinus rhythm with PVCs. No ST or T wave abnormalities. Lisinopril and carvedilol continued. History of DVT, PE and atrial fibrillation Eliquis held. Heparin drip ordered. DVT prophylaxis: Not indicated as patient is on heparin drip. Seizure disorder: Stable. Oxcarbazepine continued. Depression/anxiety: Stable. Bupropion continued. Time spent in the patient's overall evaluation,decision-making process, review of diagnostic data, adjustment of management, discussion with other providers, nursing nursing and ancillary staff involved in patient's care documentation, 65minutes. Charges/Coding Visit Charges Inpatient E&M: 24454 Init Hosp L3 05/04/232118 <Electronically signed by Ramy Calvo MD> Cosigner Signature (if applicable): CC: Dr. Ramy Calvo MD; Dr. Eduin Watts MD~ Signed [facility] Work Phone: Evaluation noteNo assessment information available [facility] Work Phone: Evaluation note* Diagnosis Onset Date Resolution Status Abnormal stress test acute Hypertension [facility] Work Phone: Evaluation note* Diagnosis Onset Date Resolution Status Abnormal stress test acute Hypertension chronic Chest pain acute Dilated aortic root acute JOVEL (dyspnea on exertion) ac marcellus Fatigue acute HFrEF (heart failure with reduced ejection fraction) acute Hypertension [facility] Work Phone: Evaluation note* Diagnosis Onset Date Resolution Status Chest pain acute Dilated aortic root acute JOVEL (dyspnea on exertion) ac marcellus HFrEF (heart failure with reduced ejection fraction) acute Hypertension chronic Chest pain acute Dilated aortic root acute Unstable angina acute Essential (primary) hypertension chronic Hyperlipidemia chronic [facility] Work Phone: Evaluation note* Diagnosis Onset Date Resolution Status Chest pain acute Dilated aortic root acute Fatigue acute HFrEF (heart failure with reduced ejection fraction) acute Hypertension [facility] Work Phone: Evaluation note* Diagnosis Bilateral impacted cerumen- Primary Impacted [facility] Onset Date Resolution Status Admit Date Dilated aortic root acute February 17, 2025 12:49pm DM type 2 (diabetes mellitus , type 2) acute February 17, 2025 1 2:49pm HFrEF (heart failure with reduced ejection fraction) acute February 17, 2025 12:49pm Hypertension chronic February 17 12:49pm Paroxysmal atrial fibrillation suspe cted February 17, 2025 12:49pm [facility] Work Phone: Reason for referral (narrative)No reason for referral information availableWC[facility] Work Phone: Family History No Family History Records Found Relationship Condition Age at Onset Recorded Date/T jaziel Unknown Family History?No pe rtinent history Unknown February 14, 2015 1:27pm Family History?No pe rtinent history Unknown February 14, 2015 1:27pm Family History?No pe rtinent history Unknown May 27, 2015 3:56pm Relationship Condition Age at Onset Recorded Date/T jaziel Unknown Family History?No pe rtinent history Unknown February 14, 2015 12:27pm Family History?No pe rtinent history Unknown February 14, 2015 12:27pm Family History?No pe rtinent history Unknown May 27, 2015 2:56pm Advance Directives No Advanced Directives Records Found Advance Directive Response Recorded Date/ Time Advance Directives No May 3:50pm Living Will No February 20, 2021 1 2:07pm Power of Financial Services Intern No February 20, 2021 12:07pm Advance Directive Response Recorded Date/ Time Advance Directives No May 3:50pm Living Will No February 13, 2022 2 :50pm Power of Financial Services Intern No February 13, 2022 2:50pm Advance Directive Response Recorded Date/ Time Advance Directives No May 3:50pm Living Will No July 13 5:11pm Power of Financial Services Intern No July 13, 2022 5:11pm Advance Directive Response Recorded Date/ Time Advance Directives No May 2:50pm Living Will No July 13 4:11pm Power of Financial Services Intern No July 13, 2022 4:11pm Advance Directive Response Recorded Date/ Time Advance Directives No May 3:50pm Living Will No May 04 3 8:42pm Power of Financial Services Intern No May 04, 2 023 8:42pm Advance Directive Response Recorded Date/ Time Advance Directives No May 2:50pm Living Will No May 04 3 7:42pm Power of Financial Services Intern No May 04 023 7:42pm Advance Directive Response Recorded Date/ Time Advance Directives No May 3:50pm Living Will No January 11, 2024 5:35pm Power of Financial Services Intern No January 10 5:35pm Advance Directive Response Recorded Date/ Time Advance Directives No May 3:50pm Advance Directive Response Recorded Date/ Time Living Will No January 11, 2024 5:35pm Do you have a Healthcare Power of Financial Services Intern? No January 11, 2024 5:35pm Advance Directives No May 3:50pm Chief Complaint and Reason for Visit Chief Complaint LACERATION Chief Complaint CP Chief Complaint CP f/u for pulmonary embolism AFIB FLUTTER Reason for Visit Abnormal stress test Hypertension Chief Complaint f/u for pulmonary em bolism AFIB FLUTTER 30 DAY MONITOR 3 M FU CP, FATIGUE, JOVEL CP, FATIGUE, JOVEL Reason for Visit Abnormal stress test Hypertension Chest pain Dilated aortic root JOVEL (dyspnea on exertion) Fatigue HFrEF (heart failure with reduced ejection fraction) Hypertension Chief Complaint 6-9 MO F/U CHEST PAIN CHEST PAIN CHEST PAIN CHEST PAIN Reason for Visit Chest pain Dilated aortic root JOVEL (dyspnea on exertion) HFrEF (heart failure with reduced ejection fraction) Hypertension Chest pain Dilated aortic root Unstable angina Essential (primary) hypertension Hyperlipidemia Chief Complaint 4 M FU Reason for Visit Chest pain Dilated aortic root Fatigue HFrEF (heart failure with reduced ejection fraction) Hypertension Chief Complaint 4 M FU HEAD Reason for Visit Chest pain Dilated aortic root Fatigue HFrEF (heart failure with reduced ejection fraction) Hypertension Chief Complaint Admit Date 6 M FU February 17, 2025 12:49 pm Reason for Visit Admit Date Dilated aortic root February 17, 2025 12:49 pm DM type 2 (diabetes mellitus, type 2) Ju 2024 12:49pm HFrEF (heart failure with reduced ejecti on fraction) February 17, 2025 12:49pm Hypertension February 17, 2025 12:49 pm Paroxysmal atrial fibrillation February 17, 2025 12:49pm Summary Purpose Additional Source Comments Goals (unrecognized section and content) Goals may be documented in a n alternate sectionGoals may be documented in an alternate sectionGoals may be documented in an alternate sectionGoals may be documented in an alternate sectionGoals may be documented in an alternate sectionGoals may be documented in an alternate sectionGoals may be documented in an alternate sectionGoals may be documented in an alternate sectionGoals may be documented in an alternate sectionGoals may be documented in an alternate sectionGoals may be documented in an alternate sectionGoals may be documented in an alternate section Care Teams (unrecognized sec tion and content) Team Status: Active Member Role Status Dates Dr. Balwinder Pruitt MD Family Provider Active Dr. Eduin Watts MD Primary Care Provider Active Team Status: Inactive Member Role Status Dates Dr. Eduin Watts MD Primary Care Provider, Referring Provider Active Chela Falk CREDIT ADMINISTRATION OFFICER, CREDIT ADMINISTRATION OFFICER-C Attending Provider Active Team Status: Active Member Role Status Dates Dr. Eduin Watts MD Primary Care Provider Active Dr. Alexandre Valles MD Attending Provider Active Team Status: Active Member Role Status Dates Dr. Eduin Watts MD Primary Care Provider Active Dr. Alexandre Valles MD Attending Provider Active Chela Falk NP, CREDIT ADMINISTRATION OFFICER-C Referring Provider Active Team Status: Active Member Role Status Dates Dr. Eduin Watts MD Primary Care Provider Active Chela Falk NP, CREDIT ADMINISTRATION OFFICER-C Referring Provider, Other Provi michael Active Dr. Alexandre Valles MD Attending Provider Active Team Status: Inactive Member Role Status Dates Dr. Eduin Watts MD Primary Care Provider Active Chela Falk NP, CREDIT ADMINISTRATION OFFICER-C Attending Provider, Referring P carlie Active Team Status: Active Member Role Status Dates Dr. Eduin Watts MD Primary Care Provider Active Chela Falk NP, CREDIT ADMINISTRATION OFFICER-C Attending Provider Active Team Status: Inactive Member Role Status Dates Dr. Eduni Watts MD Primary Care Provi michael, Attending Provider, Referring Provider Active Team Status: Active Member Role Status Dates Dr. Eduin Watts MD Primary Care Provider Active Dr. Yolie Skinner MD Emergency Provider Active Dr. Ramy Calvo MD Admit Provider, Attending Provider, Other Provider Active Dr. Arben Arguello MD Other Provider Active Team Status: Active Member Role Status Dates Dr. Eduin Watts MD Primary Care Provider Active Dr. Yolie Skinner MD Emergency Provider Active Dr. Ramy Calvo MD Admit Provider, Other Provide r Active Dr. Arben Arguello MD Other Provider Active Dr. Marco Whiteside MD Attending Provider, Other Provider Active Dr. Miguel Angel Lopes MD Other Provider Active Team Status: Active Member Role Status Dates Dr. Eduin Watts MD Primary Care Provider Active Dr. Yolie Skinner MD Emergency Provider Active Dr. Ramy Calvo MD Admit Provider, Other Provide r Active Dr. Arben Arguello MD Other Provider Active Dr. Marco Whiteside MD Other Provider Active Dr. Miguel Angel Lopes MD Other Provider Active Gina HARGROVE, PA Attending Provider Active Team Status: Active Member Role Status Dates Dr. Eduin Watts MD Primary Care Provider Active Dr. Arben Arguello MD Attending Provider Active Team Status: Inactive Member Role Status Dates Dr. Eduin Watts MD Primary Care Provider, Attending Provider Active Team Status: Inactive Member Role Status Dates Dr. Eduin Watts MD Primary Care Provider Active Dr. Yolie Skinner MD Emergency Provider Active Dr. Ramy Calvo MD Admit Provider, Other Provide r Active Dr. Arben Arguello MD Other Provider Active Dr. Marco Whiteside MD Attending Provider Active Dr. Miguel Angel Lopes MD Other Provider Active Team Status: Inactive Member Role Status Dates Dr. Eduin Watts MD Primary Care Provider Active Dr. Yolie Skinner MD Emergency Provider Active Casino Sl[employer] Supervisor Relationship Specialty Start Date End Date Alvin Chi DO [address] [place] [id number] PCP - General 07/08/04 Team Status: Inactive Member Role Status Dates Dr. Eduin Watts MD Primary Care Provider Active Start: February 05, 2025 End: February 05, 2025 Dr. Eduin Watts MD Attending Provider Active Start: February 05, 2025 End: February 05, 2025 Dr. Eduin Watts MD Referring Provider Active Start: February 05, 2025 End: February 05, 2025 Team Status: Active Member Role Status Dates Dr. Eduin Watts MD Primary Care Provider Active Start: February 06, 2025 Dr. Eduin Watts MD Attending Provider Active Start: February 06, 2025 Dr. Eduin Watts MD Referring Provider Active Start: February 06, 2025 Team Status: Inactive Member Role Status Dates Dr. Eduin Watts MD Primary Care Provider Active Start: February 06, 2025 End: February 06, 2025 Dr. Eduin Watts MD Attending Provider Active Start: February 06, 2025 End: February 06, 2025 Dr. Eduin Watts MD Referring Provider Active Start: February 06, 2025 End: February 06, 2025 Team Status: Active Member Role Status Dates Dr. Eduin Watts MD Primary Care Provider Active Team Status: Inactive Member Role Status Dates Dr. Eduin Watts MD Primary Care Provider Active Start: February 17, 2025 End: February 17, 2025 Dr. Eduin Watts MD Referring Provider Active Start: February 17, 2025 End: February 17, 2025 Carrillo Carreon NP, CREDIT ADMINISTRATION OFFICER-C Attending Provider Active S tart: February 17, 2025 End: February 17, 2025 Team Status: Active Member Role/Relationship Status Dates Dr. Eduin Watts MD Primary Care Provider Active Team Status: Inactive Member Role/Relationship Status Dates Dr. Eduin Watts MD Primary Care Provider Active Start: February 05, 2025 End: February 05, 2025 Dr. Eduin Watts MD Attending Provider Active Start: February 05, 2025 End: February 05, 2025 Dr. Eduin Watts MD Referring Provider Active Start: February 05, 2025 End: February 05, 2025 Team Status: Inactive Member Role/Relationship Status Dates Dr. Eduin Watts MD Primary Care Provider Active Start: February 06, 2025 End: February 06, 2025 Dr. Eduin Watts MD Attending Provider Active Start: February 06, 2025 End: February 06, 2025 Dr. Eduin Watts MD Referring Provider Active Start: February 06, 2025 End: February 06, 2025 Team Status: Inactive Member Role/Relationship Status Dates Dr. Eduin Watts MD Primary Care Provider Active Start: February 17, 2025 End: February 17, 2025 Dr. Eduin Watts MD Referring Provider Active Start: February 17, 2025 End: February 17, 2025 Carrillo Carreon CREDIT ADMINISTRATION OFFICER, CREDIT ADMINISTRATION OFFICER-C Attending Provider Active S tart: February 17, 2025 End: February 17, 2025 Team Status: Inactive Member Role/Relationship Status Dates Dr. Eduin Watts MD Primary Care Provider Active Start: 2025 End: 2025 Dr. Eduin Watts MD Attending Provider Active Start: 2025 End: 2025 Dr. Eduin Watts MD Referring Provider Active Start: 2025 End: 2025 Source Comments (unrecognize d section and content) In the event this informatio n is protected by the Federal Confidentiality of Alcohol and Drug Abuse Patient Records regulations: The Federal rules restrict any use of the information to criminally investigate or prosecute any alcohol or drug abuse patient.[facility] Reason for Visit (unrecogniz ed section and content) Reason Comments Ear Problem Bilat ear pain, bila t ears are impacted with wax x 1 week (unrecognized sect ion and content) No Status Records FoundNo Status Records Found INFORMATION SOURCE (unrecogn ized section and content) DATE CREATED AUTHOR 12/08/2024 [facility] DATE CREATED AUTHOR AUTHOR'S ORGANIZ ATION 03/28/2025 [facility] FOR RECORDS PERTAINING TO PATIENTS WHO ARE OR HAVE BEEN ENROLLED IN A CHEMICAL DEPENDENCY/SUBSTANCEABUSE PROGRAM, SOME INFORMATION MAY BE OMITTED. This clinical summary was aggregated from multiple sources. Caution should be exercised in using it in the provision of clinical care. This summary normalizes information from multiple sources, and as a consequence, information in this document may materially change the coding, format and clinical context of patient data. In addition, data may be omitted in some cases. CLINICAL DECISIONS SHOULD BE BASED ON THE PRIMARY CLINICAL RECORDS. [facility] [employer] [facility]. provides no warranty or guarantee of the accuracy or completeness of information in this document.
[2025-03-29 19:09] LABS: Anion Gap 13 (5-15); BUN 23 mg/dL (4-19); BUN/Creat Ratio 14.7 RATIO (10-20); Calcium,Total 9.7 mg/dL (7.6-11.0); Carbon Dioxide 21.7 mmol/L (21.0-32.0); Chloride 102 mmol/L (98-108); Estimated Creatinine Clearance 57.93 ml/min (50-250); Glucose 94 mg/dL (70-99); Potassium 4.8 mmol/L (3.3-5.1); Troponin T High Sensitivity 19 ng/L (<=22)
--- NOTE | 2025-03-29 19:32 | HP.PCM.HOS_ITS ---
HPI - General General Date of Admission: 03/29/25 Date of Service: 03/29/25 Chief Complaint: Chest pain HPI Narrative ELOINA TOVAR, is a 65 M who presented to [facility] ED on 03/29/2025 with chest pain. Medical history significant for DVT on Eliquis, paroxysmal A-fib, HFrEF with EF 45%, dilated aortic root, mood disorder, seizure disorder and hypothyroidism. Follows with [place] [facility], last office visit in early February. Reported acute onset chest pain/pressure and diaphoresis at rest this afternoon. Symptoms passed on their own in about 15 minutes. He reports having intermittent low blood pressures over the past few months and has stopped taking all blood pressure medications. He saw his PCP Dr. Watts on March 24 who ordered an echocardiogram but this has not been done yet. In the ED patient was found to be orthostatic positive with BP dropped from 110 to 85 systolic from sitting to standing. Heart rate normal sinus rhythm and stable on room air at rest. CBC benign. BMP with creatinine 1.58, baseline around 1.0, otherwise unremarkable. Troponins negative x 2. Chest x-ray unremarkable. EKG with normal sinus rhythm and no ST changes. Given his chest pain with risk factors, hospitalist was contacted for admission. I saw the patient at bedside in the ED. Patient was mildly fatigued and had flat affect. He was upset about having to stay until Monday to have echocardiogram and stress testing done but was willing to do this. He denied any chest pain or shortness of breath currently. Denied any other acute concerns. Will be admitted for further management. [facility] Medical History (Updated 03/29/25 @ 19:21 by DELVIN Wolfe) DM type 2 (diabetes mellitus, type 2) JOVEL (dyspnea on exertion) Hyperlipidemia Essential (primary) hypertension History of colon cancer Arthritis AA (alcohol abuse) Morbid obesity COPD (chronic obstructive pulmonary disease) History of suicide attempt History of DVT (deep vein thrombosis) Migraine headache Seizure disorder Neuropathy H/O: substance abuse History of ETOH abuse Necrotizing soft tissue infection Abscess of right leg Dog bite of right calf Post traumatic stress disorder (PTSD) Bronchial asthma Personal hx-rectal/anal malignancy Esophageal reflux Epilepsy undetermined as to focal or generalized, intractable Chronic pain syndrome Home Medications ?Medication ?Instructions ?Recorded ?Last Taken ?Type nitroglycerin 0.4 mg sublingual 0.4 mg sublingual Q5-1 5M PRN Chest 09/28/20 Unknown History tablet Pain oxcarbazepine 150 mg tablet 150 mg PO BID #60 tabs 09/0703/29/25 Rx oxcarbazepine 300 mg tablet 300 mg PO BID 05/05/2109/11 History atorvastatin 40 mg tablet 40 mg PO DAILY 03/25/2403/18 History meloxicam 15 mg tablet 15 mg PO DAILY 03/25/24 Unkn own History isosorbide mononitrate 30 mg 30 mg PO BID #180 TABLETS 05/03/24 03/29/25 Rx tablet,extended release 24 hr lisinopril 10 mg tablet 5 mg (1/2 x 10 mg) PO DAILY #45 06/04/24 Unknown Rx Held on 03/29/25. tabs Instructions: pt not takin carvedilol 3.125 mg tablet 3.125 mg PO BID #180 TABLET S 07/05/24 03/29/25 Rx apixaban 5 mg tablet (Eliquis) 5 mg PO BID 03/29/25 History bupropion HCl 300 mg 24 hr tablet, 300 mg PO DAILY 09/1103/28/25 History extended release escitalopram oxalate 20 mg tablet 20 mg PO DAILY 03/2903/28/25 History levothyroxine 75 mcg tablet 75 mcg PO DAILY 03/29/25 0 03/28/25 History Allergy/AdvReac Type Severity Reaction Status Date / Time meperidine HCl (From Demerol) Allergy Unknown Verified 03/29/25 17:28 Milk Containing Products Allergy Anaphylaxis Verified 03/29/25 17:28 (Dairy) (Milk Containing Products) penicillin G Allergy Hives Verified 03/29/25 17:28 wheat Allergy Other Verified 03/29/25 17:28 potassium AdvReac Other Verified 03/29/25 17:28 Surgical History History of left heart catheterization (03/1997) History of cervical spinal surgery History of bariatric surgery (2000) Social History Smoking Status: Never smoker Electronic Cigarette Use: not used alcohol intake: former year quit: 1999 substance use type: former substance user Date of last use: 20 years, Fentynal 4 years, crack/cocaine, heroin, painkillers and other details: LSD ROS Constitutional Constitutional: Reports fatigue; Denies chills, fever(s) or weakness Eyes Eyes: Denies change in vision Cardiovascular Cardiovascular: Reports chest pain; Denies dyspnea on exertion, edema, lightheadedness or palpitations Respiratory/Chest Respiratory/Chest: Denies shortness of breath at rest Gastrointestinal Gastrointestinal: Denies abdominal pain Musculoskeletal Musculoskeletal: Denies arthralgias or myalgias Vital Signs Vital Signs Vital Signs: 03/29/25 17:29 03/29/25 17:31 03/29/25 17:50 Temperature 97.8 F Temperature Source Oral Pulse Rate 75 Pulse Rate [Lying] Pulse Rate [Sitting (for 1 minute prior to obtaining)] Pulse Rate [Standing (for 1 minute prior to obtaining)] Respiratory Rate 18 Respiratory Effort Normal Blood Pressure 116/78 Blood Pressure [Lying] Blood Pressure [Sitting (for 1 minute prior to obtaining)] Blood Pressure [Standing (for 1 minute prior to obtaining)] Blood Pressure Mean 90 Blood Pressure Mean [Lying] Blood Pressure Mean [Sitting (for 1 minute prior to obtaining)] Blood Pressure Mean [Standing (for 1 minute prior to obtaining)] Pulse Ox 96 Oxygen Delivery Method Room Air Room Air 03/29/25 18:07 03/29/25 18:27 03/29/25 19:00 Temperature Temperature Source Pulse Rate 66 73 Pulse Rate [Lying] 66 Pulse Rate [Sitting (for 1 minute prior to obtaining)] 76 Pulse Rate [Standing (for 1 minute prior to obtaining)] 85 Respiratory Rate 18 19 H Respiratory Effort Blood Pressure 87/71 L Blood Pressure [Lying] 113/80 Blood Pressure [Sitting (for 1 minute prior to obtaining)] 110/75 Blood Pressure [Standing (for 1 minute prior to obtaining)] 85/73 L Blood Pressure Mean 76 Blood Pressure Mean [Lying] 91 Blood Pressure Mean [Sitting (for 1 minute prior to obtaining)] 86 Blood Pressure Mean [Standing (for 1 minute prior to obtaining)] 77 Pulse Ox 98 96 Oxygen Delivery Method Room Air Room Air 03/29/25 19:04 Temperature Temperature Source Pulse Rate Pulse Rate [Lying] Pulse Rate [Sitting (for 1 minute prior to obtaining)] Pulse Rate [Standing (for 1 minute prior to obtaining)] Respiratory Rate Respiratory Effort Blood Pressure 108/64 Blood Pressure [Lying] Blood Pressure [Sitting (for 1 minute prior to obtaining)] Blood Pressure [Standing (for 1 minute prior to obtaining)] Blood Pressure Mean 78 Blood Pressure Mean [Lying] Blood Pressure Mean [Sitting (for 1 minute prior to obtaining)] Blood Pressure Mean [Standing (for 1 minute prior to obtaining)] Pulse Ox Oxygen Delivery Method Weight Weight: 116.6 kg Body Mass Index (BMI) 37.9 Physical Exam Const alert, oriented x3 and no apparent distress Constitutional Narrative: Elderly male, class II obesity, mildly fatigued with flat affect, otherwise sitting back comfortably in bed, conversing normally, in no acute distress. General Appearance: cooperative and comfortable HEENT normocephalic, head/scalp atraumatic, hearing grossly normal bilaterally, nasal mucous membranes and turbinates normal and moist oral mucous membranes Eyes PERRL, EOMs intact bilaterally and conjunctivae normal Neck full ROM Chest inspection of chest normal Resp normal respiratory effort, normal air movement, no use of accessory muscles and clear to auscultation bilaterally Cardio regular rate, regular rhythm, no murmurs and peripheral pulses 2+ throughout GI normal to inspection, nondistended, normoactive bowel sounds, soft to palpation, non-tender and non-distended Back/Spine normal ROM Extremity normal to inspection, full ROM and no pedal edema Skin no rashes or lesions noted Psych mental status grossly normal Psych Narrative: Flat affect. Results Lab / Micro Data 03/29/25 17:38 03/29/25 17:38 Labs: Laboratory Results - last 24 hr 03/29/25 17:38: WBC 6.8, RBC 4.55 L, Hgb 14.4, Hct 43.4, MCV 95.4 H, MCH 31.6, MCHC 33.2, RDW Std Deviation 47.0 H, RDW Coeff of Wenceslao 13.4, Plt Count 238, MPV 9.6, Immature Gran % (Auto) 0.300, Neut % (Auto) 77.2 H, Lymph % (Auto) 11.7 L, Bell % (Auto) 8.9, Eos % (Auto) 1.2, Baso % (Auto) 0.7, Absolute Neuts (auto) 5.3, Absolute Lymphs (auto) 0.80 L, Nucleated RBC % 0, Sodium 137, Potassium 4.8, Chloride 102, Carbon Dioxide 21.7, Anion Gap 13, BUN 23 H, Creatinine 1.58 H, Estim Creat Clear Calc 57.93, Est GFR (MDRD) Non-Af 48 L, BUN/Creatinine Ratio 14.7, Glucose 94, Calcium 9.7, Troponin T High Sens 19 Imaging Radiology Impression Chest X-Ray 03/29/25 18:00 IMPRESSION: No acute cardiopulmonary abnormality. Reading Location: [id number] Assessment & Plan Assessment/Plan (1) Chest pain: (2) Orthostatic hypotension: PLAN: Plan Patient is a 65-year-old male who presented to [facility] ED on 03/29/2025 with chest pain. 1. Chest pain, ACS rule out ? Admit under observation status to PCU. Presented with chest pain at rest that resolved on its own. Risk factors as noted below. Troponins negative x 2, EKG normal, chest x-ray normal. Echocardiogram and nuclear stress test ordered; these will not be done till Monday so we will keep n.p.o. at midnight on Monday. Lipid panel and A1c ordered. Recent TSH normal. Okay to continue home Eliquis and statin as below. Holding home blood pressure medications. Monitor cardiac telemetry. 2. CLARISSA with orthostatic hypotension ? Creatinine 1.58 on admit, baseline around 1.0. Positive orthostatics in the ED. Most likely prerenal etiology. Given IV fluids on admission, follow-up a.m. BMP and monitor urine output. Can repeat orthostatic vitals as needed. Will hold home lisinopril, Coreg and Imdur. 3. Paroxysmal A-fib on Eliquis, history of DVT/PE, hypertension, hyperlipidemia ? Follows with [place] [facility], last office visit in February. In normal sinus rhythm on admit. Orthostatic hypotension noted as above. Continue home Eliquis and statin. Holding home BP medications as above. Chronic medical conditions: ? Class II obesity: BMI 36 on admit. Complicates hospital course, care and prognosis. ? Hypothyroidism: Recent TSH normal. Continue home Synthroid. ? Mood disorder: Continue home escitalopram and bupropion. ? Seizure disorder: Continue home oxcarbazepine. DVT prophylaxis: Not indicated, on Eliquis CODE STATUS: Full code, verified Expected disposition: Home, TBD Total clinical time spent by myself addressing the patient's medical issues, reviewing all the data, and collaborating with patient's care team: 75 minutes. Charges/Coding Visit Charges Inpatient E&M: 04277 Init Hosp L3
--- NOTE | 2025-03-29 19:38 | ECHOD_ITS ---
Reason For Study Reason For Study: CHEST PAIN Procedure This was a 2D Doppler, Color Flow transthoracic echocardiogram. Exam performed in department. Left Ventricle Normal LV size. Mild concentric left ventricular hypertrophy. Mild apical hypokinesis. Estimated LVEF 60%. Stage I diastolic dysfunction. Right Ventricle Normal right ventricle. Atria The left atrium is mildly enlarged. Normal right atrium. Mitral Valve Mild (1+) mitral valve insufficiency. Tricuspid Valve Trivial tricuspid valve insufficiency. Normal pulmonary artery pressure. Aortic Valve Trisinus/trileaflet aortic valve. Mild (1+) aortic valve insufficiency. Pulmonic Valve The pulmonic valve is not well visualized. Great Vessels Normal sized aortic root. Pericardium/Pleural No pericardial effusion. MMode/2D Measurements & Calculations LVIDd: 5.2 cm IVSd: 1.2 cm LVOT diam: 2.4 cm LVIDs: 3.2 cm LVPWd: 1.2 cm LVOT area: 4.6 cm2 RVDd: 4.1 cm FS: 37.8 % asc Aorta Diam: 4.2 cm LAV(MOD-bp): 50.5 ml LVAd ap4: 34.1 cm2 LAV(MOD-bp) Indexed: 22.0 ml/m2 LVLd ap4: 8.9 cm LAV(MOD-sp2): 49.3 ml EDV(MOD-sp4): 108.0 ml LAV(MOD-sp4): 48.7 ml EDV(sp4-el): 111.1 ml LVAs ap4: 18.9 cm2 LVLs ap4: 7.4 cm ESV(MOD-sp4): 41.5 ml ESV(sp4-el): 40.9 ml EF(MOD-sp4): 61.6 % EF(sp4-el): 63.2 % LVAd ap2: 28.3 cm2 SV(MOD-sp4): 66.5 ml SV(MOD-sp2): 45.2 ml LVLd ap2: 8.4 cm SI(MOD-sp4): 28.9 ml/m2 SI(MOD-sp2): 19.7 ml/m2 EDV(MOD-sp2): 79.7 ml EDV(sp2-el): 80.6 ml LVAs ap2: 16.6 cm2 LVLs ap2: 6.8 cm ESV(MOD-sp2): 34.5 ml ESV(sp2-el): 34.5 ml EF(MOD-sp2): 56.7 % SV(sp4-el): 70.2 ml Ao sinus diam: 4.[address] Junction: 3.6 cm LA dimension(2D): 4.4 cm LA A4 area: 18.4 cm2 RA A4 area: 9.1 cm2 TAPSE: 1.9 cm Time Measurements MV dec time: 0.30 sec Doppler Measurements & Calculations MV E max zenon: 38.4 cm/sec Lat Peak E' Zenon: 13.3 cm/sec Med Peak E' Zenon: 7.2 cm/sec MV A max zenon: 62.5 cm/sec E/E' lat: 2.9 E/E' med: 5.4 MV E/A: 0.61 MV dec slope: 126.9 cm/sec2 Ao V2 max: 111.0 cm/sec LV V1 max: 96.9 cm/sec Ao max P.9 mmHg LV V1 max P.8 mmHg Ao V2 mean: 83.9 cm/sec LV V1 mean P.0 mmHg Ao mean P.0 mmHg LV V1 mean: 66.2 cm/sec Ao V2 VTI: 25.2 cm LV V1 VTI: 22.3 cm AV (velocity ratio): 0.89 ACOSTA(I,D): 4.1 cm2 ACOSTA(V,D): 4.0 cm2 SV(LVOT): 103.2 ml PA V2 max: 92.8 cm/sec TR max zenon: 233.2 cm/sec TR max P.8 mmHg ECHO/Echo Complete Interpretation Summary Mild concentric left ventricular hypertrophy. Mild apical hypokinesis. Estimated LVEF 60%. Stage I diastolic dysfunction. The left atrium is mildly enlarged. Mild (1+) mitral valve insufficiency. Mild (1+) aortic valve insufficiency. Ordering Physician: Froilan Mims Performed By: Laura James RDCS
--- OUTSIDE RECORDS SUMMARY | 2025-03-29 19:55 | XMS RPT_ITS | CCD ---
Author Organization [facility] CliniSyid Care Team Providers Care Sieve Repairer Name Role Phone Dr. Eduin Watts Primary Care Provider Dr. Eduin Watts Referring Provider Dileep ALLAN, SANJANA-C Chela Attending Provider Dr. Alexandre Valles Attending Provider Dileep ALLAN, PRESIDENT CEO & FOUNDER-C Chela Referring Provider Dileep ALLAN NP-C Chela Other Provider Dr. Eduin Watts Primary Care Provider Dr. Eduin Watts Referring Provider Dileep ALLAN NP-C Chela Attending Provider Dr. Yolie Skinner Emergency Provider [phone] Ramy Calvo Admit Provider Dr. Ramy Calvo Attending Provider Dr. Ramy Calvo Other Provider Dr. Arben Arguello Other Provider Dr. Marco Whiteside Other Provider Dr. Miguel Angel Lopes Other Provider Deana HARGROVE, PA Gina Talamantes Attending Provider Dr. Arben Arguello Attending Provider Dr. Marco Whiteside Attending Provider Dr. Eduin Watts Primary Care Provider Dr. Eduin Watts Referring Provider Dileep ALLAN NP-C Chela Attending Provider Dr. Eduin Watts Primary Care Provider Dr. Eduin Watts Referring Provider Dileep ALLAN, PRESIDENT CEO & FOUNDER-C Chela Attending Provider Alvin Chi DO Primary Care Provider ALVIN CHI Primary Care Unavailable Mac VILLAGRAN, Dr. Denny Primary Care Provider [phone] Mac VILLAGRAN, Dr. Denny Attending Provider Mac VILLAGRAN, Dr. Denny Referring Provider Velma PRESIDENT CEO & FOUNDER-C, Carrillo Cole Attending Provider [phone] Mac, [...] Unavailable Watts, Eduin Primary Care Unavailable Dileep PRESIDENT CEO [employer] FOUNDER, Chela Attending Unavailable Dileep PRESIDENT CEO [employer] FOUNDER, Chela Referring Unavailable Allergies Allergy Classification Reported Allergen(s) Allergy Type Date of Onset Reaction(s) Facility (16 sources) Meperidine; Translations: [MEPERIDINE HCL] Drug Allergy 5 [facility] (13 sources) Penicillin G Drug Allergy 1 [facility] (15 sources) Potassium; Translations: [POTASSIUM] Drug Allergy 5 [facility] (13 sources) Wheat preparation Drug Allergy 1 Other [facility] Comment on above: CELIACS DISEASE (5 sources) Milk Containing Products Allergy to substance 1 Anaphylaxis [facility] (8 sources) Milk Containing Products (Dairy) Allergy to substance 3 Anaphylaxis [facility] Comment on above: PER PT (2 sources) Cheese; Translations: [CHEESE] Drug Allergy 7 Other: See Comments [facility] (2 sources) cow milk allergenic extract; Translations: [MILK] Drug Allergy 3 Swelling [facility] Work Phone: (2 sources) Penicillins; Translations: [PENICILLINS] Propensity to adverse reactions 5 Hives [facility] (1 source) Penicillin Drug Allergy 5 [facility] Repository (1 source) Potassium Drug Allergy 5 [facility] Repository (1 source) Wheat preparation Drug Allergy 5 [facility] Repository (1 source) Milk Containing Products (Dairy) Drug allergy (disorder) 5 [facility] Repository Medications Current Medications Medication Drug Class(es) Dates Sig (Normalized) Sig (Original) [id number] 200 actuat albuterol 0.09 mg/actuat metered dose [...] Start: 03-25-2024 take 1 capsule by mo [facility] once daily Levothyroxine 50 mcg capsule [...] sources) Long-term current use of anticoagulant; Translations: [intermediate (current) use of anticoagulants] 06-16-2024 Episodic Other [...] Auto (Unsp spec) [#/Vol] 0.84 10*3/uL 0.83-4.51 [facility] Absolute neutrophil countOrd ered By: Eduin Watts on 2025 Neutrophils (Bld) [#/Vol] 2.8 10*3/uL 2.0-7.7 [facility] Anion gap in Serum or Plasma Ordered By: Eduin Watts on 2025 Anion gap [Moles/Vol] 11 mmol/L 5-15 [facility] Automated lymphocyte count a s percentage of total leukocytesOrdered By: Eduin Watts on 2025 Lymphocytes/100 WBC Auto (Unsp spec) 20.0 % 19-41 [facility] BUN/creatinine ratioOrdered By: Eduin Watts on 2025 Urea nitrogen/Creatinine [Mass ratio] 18.5 mg/mg 10-20 [facility] Basic Metabolic Profile (BMP )on 2025 BUN/CRE 18.5 RATIO Normal 10-20 [facility] Comment on above: Performed By: #### L 500.2500, L100.0100, L501.9520 #### [facility] Laboratory [address] [place], [address] Calcium [Mass/Vol] 9.1 mg/dL Normal 7.6-11.0 [facility] Comment on above: Performed By: #### L 500.2500, L100.0100, L501.9520 #### [facility] Laboratory [address] [place], [address] Chloride [Moles/Vol] 105 mmol/L Normal 98-108 [facility] Comment on above: Performed By: #### L 500.2500, L100.0100, L501.9520 #### [facility] Laboratory [address] [place], [address] CO2 [Moles/Vol] 22.5 mmol/L Normal 21.0-32.0 [facility] Comment on above: Performed By: #### L 500.2500, L100.0100, L501.9520 #### [facility] Laboratory [address] [place], [address] Creatinine [Mass/Vol] 1.04 mg/dL Normal 0.70-1.20 [facility] Comment on above: Performed By: #### L 500.2500, L100.0100, L501.9520 #### [facility] Laboratory [address] [place], [address] GAP 11 Normal 5-15 [facility] Comment on above: Performed By: #### L 500.2500, L100.0100, L501.9520 #### [facility] Laboratory [address] [place], [address] GFR/1.73 sq M.predicted among non-blacks MDRD (S/P/Bld) [Vol rate/Area] 79 mL/min/{1.73_m2} Normal >60 [facility] Comment on above: Result Comment: mL/m in/1.73m2 CKD-EPI Creatinine Equation (2020) Performed By: #### L 500.2500, L100.0100, L501.9520 #### [facility] Laboratory [address] [place], [address] Glucose [Mass/Vol] 88 mg/dL Normal 70-99 [facility] Comment on above: Performed By: #### L 500.2500, L100.0100, L501.9520 #### [facility] Laboratory [address] [place], [address] Potassium [Moles/Vol] 4.5 mmol/L Normal 3.3-5.1 [facility] Comment on above: Performed By: #### L 500.2500, L100.0100, L501.9520 #### [facility] Laboratory [address] [place], [address] Sodium [Moles/Vol] 138 mmol/L Normal 133-145 [facility] Comment on above: Performed By: #### L 500.2500, L100.0100, L501.9520 #### [facility] Laboratory [address] [place], [address] Urea nitrogen [Mass/Vol] 19 mg/dL Normal 4-19 [facility] Comment on above: Performed By: #### L 500.2500, L100.0100, L501.9520 #### [facility] Laboratory [address] [place], [address] Basophil percentageOrdered B y: Eduin Watts on 07-07-2025 Basophils/100 WBC (Bld) 1.2 % High 0-1 [facility] CBC W/Diff, Automatedon 07-0 7-202 Absolute Lymph 0.84 X10 3/uL Normal 0.83-4.51 [facility] Comment on above: Performed By: #### L 500.2500, L100.0100, L501.9520 #### [facility] Laboratory [address] [place], [address] Absolute Neut 2.8 X10 3/uL Normal 2.0-7.7 [facility] Comment on above: Performed By: #### L 500.2500, L100.0100, L501.9520 #### [facility] Laboratory [address] [place], [address] Basophils/100 WBC (Bld) 1.2 % High 0-1 [facility] Comment on above: Performed By: #### L 500.2500, L100.0100, L501.9520 #### [facility] Laboratory [address] [place], [address] Eosinophils/100 WBC (Bld) 3.1 % Normal 0-5 [facility] Comment on above: Performed By: #### L 500.2500, L100.0100, L501.9520 #### [facility] Laboratory [address] [place], [address] Erythrocyte distribution width (RBC) [Ratio] 13.5 % Normal 11.6-14.6 [facility] Comment on above: Performed By: #### L 500.2500, L100.0100, L501.9520 #### [facility] Laboratory [address] [place], [address] Hematocrit (Bld) [Volume fraction] 41.5 % Normal 40-54 [facility] Comment on above: Performed By: #### L 500.2500, L100.0100, L501.9520 #### [facility] Laboratory [address] [place], [address] Hemoglobin (Bld) [Mass/Vol] 13.6 g/dL Normal 13.0-16.5 [facility] Comment on above: Performed By: #### L 500.2500, L100.0100, L501.9520 #### [facility] [address] [place], [address] IG% 0.200 Normal 0.0-0.9 [facility] Comment on above: Result Comment: IG% - Immature Granulocytes (promyelocytes, myelocytes and metamyelocytes) > 1% indicates that a LEFT SHIFT is Present. Performed By: #### L 500.2500, L100.0100, L501.9520 #### [facility] Laboratory [address] [place], [address] Lymphocytes/100 WBC (Bld) 20.0 % Normal 19-41 [facility] Comment on above: Performed By: #### L 500.2500, L100.0100, L501.9520 #### [facility] Laboratory [address] [place], [address] MCH (RBC) [Entitic mass] 31.4 pg Normal 27.0-32.0 [facility] Comment on above: Performed By: #### L 500.2500, L100.0100, L501.9520 #### [facility] Laboratory [address] [place], [address] MCHC (RBC) [Mass/Vol] 32.8 g/dL Normal 32-36 [facility] Comment on above: Performed By: #### L 500.2500, L100.0100, L501.9520 #### [facility] Laboratory [address] [place], [address] MCV (RBC) [Entitic vol] 95.8 fL High 80-94 [facility] Comment on above: Performed By: #### L 500.2500, L100.0100, L501.9520 #### [facility] Laboratory [address] [place], [address] Monocytes/100 WBC (Bld) 10.0 % Normal 0-10 [facility] Comment on above: Performed By: #### L 500.2500, L100.0100, L501.9520 #### [facility] Laboratory [address] [place], [address] Neutrophils/100 WBC (Bld) 65.5 % Normal 47-70 [facility] Comment on above: Performed By: #### L 500.2500, L100.0100, L501.9520 #### [facility] Laboratory [address] [place], [address] Nucleated RBC (Bld) [#/Vol] 0 10*3/uL Normal 0-5 [facility] Comment on above: Performed By: #### L 500.2500, L100.0100, L501.9520 #### [facility] Laboratory [address] [place], [address] Platelet mean volume (Bld) [Entitic vol] 10.3 fL Normal 6.2-12.0 [facility] Comment on above: Performed By: #### L 500.2500, L100.0100, L501.9520 #### [facility] Laboratory [address] [place], [address] Platelets (Bld) [#/Vol] 225 10*3/uL Normal 150-450 [facility] Comment on above: Performed By: #### L 500.2500, L100.0100, L501.9520 #### [facility] Laboratory [address] [place], [address] RBC (Bld) [#/Vol] 4.33 10*6/uL Low 4.6-6.2 [facility] Comment on above: Performed By: #### L 500.2500, L100.0100, L501.9520 #### [facility] Laboratory [address] [place], [address] RDW SD 47.9 fl High 35.1-43.9 [facility] Comment on above: Performed By: #### L 500.2500, L100.0100, L501.9520 #### [facility] Laboratory [address] [place], [address] WBC (Bld) [#/Vol] 4.2 10*3/uL Low 4.4-11.0 [facility] Comment on above: Performed By: #### L 500.2500, L100.0100, L501.9520 #### [facility] Laboratory [address] [place], [address] Carbon dioxide, total [Moles /volume] in Central venous bloodOrdered By: Eduin Watts on 2025 CO2 [Moles/Vol] 22.5 mmol/L 21.0-32.0 [facility] Chloride assayOrdered By: Santos Watts on 2025 Chloride [Moles/Vol] 105 mmol/L 98-108 [facility] Eosinophil percentageOrdered By: Eduin Watts on 2025 Eosinophils/100 WBC (Bld) 3.1 % 0-5 [facility] Erythrocyte distribution wid th ratioOrdered By: Eduin Watts on 2025 Erythrocyte distribution width (RBC) [Ratio] 13.5 % 11.6-14.6 [facility] Erythrocyte distribution wid th standard deviationOrdered By: Eduin Watts on 2025 Erythrocyte distribution width (RBC) [Ratio] 47.9 fl High 35.1-43.9 [facility] Glomerular filtration rate ( GFR) estimation/1.73 sq m using serum, plasma, or whole bOrdered By: Eduin Watts on 2025 GFR/1.73 sq M.predicted among non-blacks MDRD (S/P/Bld) [Vol rate/Area] 79 mL/min/{1.73_m2} >60 [facility] Comment on above: mL/min/1.73m2 CKD-EP I Creatinine Equation (2020) Hematocrit Auto (Bld) [Volum e fraction]Ordered By: Eduin Watts on 2025 Hematocrit (Bld) [Volume fraction] 41.5 % 40-54 [facility] Hemoglobin measurementOrdere d By: Eduin Watts on 2025 Hemoglobin (Bld) [Mass/Vol] 13.6 g/dL 13.0-16.5 [facility] Immature granulocytes/100 WB C Auto (Bld)Ordered By: Eduin Watts on 2025 Immature granulocytes/100 WBC (Bld) 0.200 % 0.0-0.9 [facility] Comment on above: IG% - Immature Granu locytes (promyelocytes, myelocytes and metamyelocytes) > 1% indicates that a LEFT SHIFT is Present. MCV (mean corpuscular volume ) determinationOrdered By: Eduin Watts on 2025 MCV (RBC) [Entitic vol] 95.8 fL High 80-94 [facility] Mean corpuscular hemoglobin (MCH) determinationOrdered By: Eduin Watts on 2025 MCH (RBC) [Entitic mass] 31.4 pg 27.0-32.0 [facility] Mean corpuscular hemoglobin concentration (MCHC) determinationOrdered By: Eduin Watts on 2025 MCHC (RBC) [Mass/Vol] 32.8 g/dL 32-36 [facility] Mean platelet volume determi nationOrdered By: Eduin Watts on 2025 Platelet mean volume (Bld) [Entitic vol] 10.3 fL 6.2-12.0 [facility] Monocyte percentageOrdered B y: Eduin Watts on 2025 Monocytes/100 WBC (Bld) 10.0 % 0-10 [facility] Neutrophil percentageOrdered By: Eduin Watts on 2025 Neutrophils/100 WBC (Bld) 65.5 % 47-70 [facility] Nucleated red blood cell per centageOrdered By: Eduin Watts on 2025 Nucleated RBC/100 WBC (Bld) [Ratio] 0 % 0-5 [facility] Platelet countOrdered By: Santos Watts on 2025 Platelets (Bld) [#/Vol] 225 10*3/uL 150-450 [facility] Potassium measurement (mass/ volume)Ordered By: Eduin Watts on 2025 Potassium (Unsp spec) [Mass/Vol] 4.5 mmol/L 3.3-5.1 [facility] RBC Auto (Bld) [#/Vol]Ordere d By: Eduin Watts on 2025 RBC (Bld) [#/Vol] 4.33 10*6/uL Low 4.6-6.2 [facility] Serum creatinine measurement (mass/volume)Ordered By: Eduin Watts on 2025 Creatinine [Mass/Vol] 1.04 mg/dL 0.70-1.20 [facility] Serum glucose measurement (m ass/volume)Ordered By: Eduin Watts on 2025 Glucose [Mass/Vol] 88 mg/dL 70-99 [facility] Serum or plasma calcium linda urement (mass/volume)Ordered By: Eduin Watts on 2025 Calcium [Mass/Vol] 9.1 mg/dL 7.6-11.0 [facility] Serum or plasma urea nitroge n measurement (mass/volume)Ordered By: Eduin Watts on 2025 Urea nitrogen [Mass/Vol] 19 mg/dL 4-19 [facility] Sodium levelOrdered By: Eduin Watts on 2025 Sodium [Moles/Vol] 138 mmol/L 133-145 [facility] TSH DL <= 0.005 mIU/L QnOrde red By: Eduin Watts on 2025 TSH Qn 0.910 uIU/mL 0.300-4.200 [facility] Thyroid Stim Hormone (TSH)on 2025 TSH 0.910 uIU/mL Normal 0.300-4.200 [facility] Comment on above: Performed By: #### L 500.2500, L100.0100, L501.9520 ####[facility] [address] [place], [place], [id number] White blood cell (WBC) count Ordered By: Eduin Watts on 2025 WBC (Bld) [#/Vol] 4.2 10*3/uL Low 4.4-11.0 [facility] Microalb:Creat Ratio,Random URon 03-11-2025 MALB:CREAT 15.9 mg/g CRE Normal [facility] Comment on above: Result Comment: AMENDED REPORT 03/11/25 1037 MALB:CREAT previously reported as: 159.2 mg/g CRE Performed By: #### L 502.0250 ####[facility] [address] [place], [address] Cardiology Visit Reporton Cardiology Visit Report [facility] [address] [place] [address] OFFICE VISIT Date of Service: 02/17/25 MR#: [id number] Acct: [id number] Name: ELOINA TOVAR Rep #: [id number] : 1960 Provider: FAVIAN horton Age/Sex: 64/M [place] [facility] Status: Signed HPI HPI History of Present Illness Details: This is a 64-year-old man who presents to the office today for a cardiovascular follow-up visit. He has a history of hypertension, seizure disorder and no previously documented coronary artery disease. He tells me that he recently was up in [place] and was apparently diagnosed with atrial fibrillation. 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 Normal [facility] Comprehensive Metabolic Prof ilon 02-06-2025 Albumin [Mass/Vol] 4.2 g/dL Normal 3.4-4.8 [facility] Comment on above: Performed By: #### L 506.0400, L500.4100, L501.93562, L500.4050, L501.9520 #### [facility] Laboratory [address] [place], [address] Albumin/Globulin [Mass ratio] 1.6 {ratio} Normal 0.9-2.4 [facility] Comment on above: Performed By: #### L 506.0400, L500.4100, L501.83169, L500.4050, L501.9520 #### [facility] Laboratory [address] [place], [address] ALK PHOS 86 U/L Normal 40-129 [facility] Comment on above: Performed By: #### L 506.0400, L500.4100, L501.42780, L500.4050, L501.9520 #### [facility] Laboratory [address] [place], [address] ALT [Catalytic activity/Vol] 14 U/L Normal <=46 [facility] Comment on above: Performed By: #### L 506.0400, L500.4100, L501.31897, L500.4050, L501.9520 #### [facility] Laboratory [address] [place], [address] AST [Catalytic activity/Vol] 26 U/L Normal <=37 [facility] Comment on above: Performed By: #### L 506.0400, L500.4100, L501.24667, L500.4050, L501.9520 #### [facility] Laboratory [address] [place], [address] Bilirubin [Mass/Vol] 0.29 mg/dL Normal 0.00-1.30 [facility] Comment on above: Performed By: #### L 506.0400, L500.4100, L501.50131, L500.4050, L501.9520 #### [facility] Laboratory [address] [place], [address] BUN/CRE 19.7 RATIO Normal 10-20 [facility] Comment on above: Performed By: #### L 506.0400, L500.4100, L501.68455, L500.4050, L501.9520 #### [facility] Laboratory [address] [place], [address] Calcium [Mass/Vol] 8.6 mg/dL Normal 7.6-11.0 [facility] Comment on above: Performed By: #### L 506.0400, L500.4100, L501.74447, L500.4050, L501.9520 #### [facility] Laboratory [address] [place], [address] Chloride [Moles/Vol] 102 mmol/L Normal 98-108 [facility] Comment on above: Performed By: #### L 506.0400, L500.4100, L501.72687, L500.4050, L501.9520 #### [facility] Laboratory [address] [place], [address] CO2 [Moles/Vol] 22.4 mmol/L Normal 21.0-32.0 [facility] Comment on above: Performed By: #### L 506.0400, L500.4100, L501.85048, L500.4050, L501.9520 #### [facility] Laboratory [address] [place], [address] Creatinine [Mass/Vol] 1.05 mg/dL Normal 0.70-1.20 [facility] Comment on above: Performed By: #### L 506.0400, L500.4100, L501.04847, L500.4050, L501.9520 #### [facility] Laboratory [address] [place], [address] GAP 12 Normal 5-15 [facility] Comment on above: Performed By: #### L 506.0400, L500.4100, L501.17917, L500.4050, L501.9520 #### [facility] Laboratory [address] [place], [address] GFR/1.73 sq M.predicted among non-blacks MDRD (S/P/Bld) [Vol rate/Area] 79 mL/min/{1.73_m2} Normal >60 [facility] Comment on above: Result Comment: mL/m in/1.73m2 CKD-EPI Creatinine Equation (2020) Performed By: #### L 506.0400, L500.4100, L501.58683, L500.4050, L501.9520 #### [facility] Laboratory [address] [place], [address] Globulin (S) [Mass/Vol] 2.7 g/dL Normal 2.2-4.2 [facility] Comment on above: Performed By: #### L 506.0400, L500.4100, L501.69931, L500.4050, L501.9520 #### [facility] Laboratory [address] [place], [address] Glucose [Mass/Vol] 86 mg/dL Normal 70-99 [facility] Comment on above: Performed By: #### L 506.0400, L500.4100, L501.51355, L500.4050, L501.9520 #### [facility] Laboratory [address] [place], [address] Potassium [Moles/Vol] 4.5 mmol/L Normal 3.3-5.1 [facility] Comment on above: Performed By: #### L 506.0400, L500.4100, L501.83061, L500.4050, L501.9520 #### [facility] [address] [place], [address] Sodium [Moles/Vol] 136 mmol/L Normal 133-145 [facility] Comment on above: Performed By: #### L 506.0400, L500.4100, L501.43313, L500.4050, L501.9520 #### [facility] Laboratory [address] [place], [address] T PROT 6.9 g/dL Normal 5.9-8.4 [facility] Comment on above: Performed By: #### L 506.0400, L500.4100, L501.38827, L500.4050, L501.9520 #### [facility] [address] [place], [address] Urea nitrogen [Mass/Vol] 21 mg/dL High 4-19 [facility] Comment on above: Performed By: #### L 506.0400, L500.4100, L501.43168, L500.4050, L501.9520 #### [facility] [address] [place], [address] Free T3on 02-06-2025 Free T3 [Mass/Vol] 2.3 pg/mL Normal 2.18-3.98 [facility] Comment on above: Performed By: #### L 506.0400, L500.4100, L501.05558, L500.4050, L501.9520 #### [facility] [address] [place], [address] Lipid Profileon 02-06-2025 CHOL:HDL 2.82 Normal [facility] Comment on above: Performed By: #### L 506.0400, L500.4100, L501.87651, L500.4050, L501.9520 #### [facility] [address] [place], [address] Cholesterol [Mass/Vol] 159 mg/dL Normal <=200 [facility] Comment on above: Result Comment: Chol esterol level, Desirable <200 mg/dL Borderline high cholesterol 200-239 mg/dL High cholesterol >=240 mg/dL Recommendations of the NCEP Adult Treatment Panel for the following risk-cutoff thresholds for the [place] population. Performed By: #### L 506.0400, L500.4100, L501.27152, L500.4050, L501.9520 #### [facility] [address] [place], [address] Cholesterol in HDL [Mass/Vol] 56 mg/dL Normal [facility] Comment on above: Result Comment: Alexia onal Cholesterol Education Program (NCEP) guidelines: <40 mg/dL: Low HDL-cholesterol (major risk factor for CHD) >= 60 mg/dL: High HDL-cholesterol (negative risk factor for CHD) HDL-cholesterol is affected by a number of factors, e.g. smoking, exercise, hormones, sex and age. Performed By: #### L 506.0400, L500.4100, L501.59280, L500.4050, L501.9520 #### [facility] [address] [place], [address] Cholesterol in LDL [Mass/Vol] 85 mg/dL Normal [facility] Comment on above: Result Comment: Bord jcunku=362-512 mg/dL Higher Abfn=845 mg/dL or greater Performed By: #### L 506.0400, L500.4100, L501.50772, L500.4050, L501.9520 #### [facility] [address] [place], [address] Cholesterol in VLDL [Mass/Vol] 18 mg/dL Normal 5-40 [facility] Comment on above: Performed By: #### L 506.0400, L500.4100, L501.03703, L500.4050, L501.9520 #### [facility] [address] [place], [address] Triglyceride [Mass/Vol] 88 mg/dL Normal [facility] Comment on above: Result Comment: The drugs N-Acetylcysteine and Metamizole may falsely depress this assay. Normal range: <150 mg/dL Borderline High: 150-199 mg/dL High: 200-499 mg/dL Very High: >500 mg/dL Performed By: #### L 506.0400, L500.4100, L501.81567, L500.4050, L501.9520 #### [facility] [address] [place], [address] Random urine creatinine linda urement (mass/volume)Ordered By: Eduin Watts on 02-06-2025 Creatinine Unsp time (U) [Mass/Vol] 196.00 mg/dL 39.00-259.00 [facility] T4 Free Directon 02-06-2025 T4 FREE DIRECT 0.90 ng/dL Normal 0.76-1.46 [facility] Comment on above: Performed By: #### L 506.0400, L500.4100, L501.92039, L500.4050, L501.9520 #### [facility] [address] [facility] [place], [address] Thyroid Stim Hormone (TSH)on 02-06-2025 TSH 0.406 uIU/mL Normal 0.300-4.200 [facility] Comment on above: Performed By: #### L 506.0400, L500.4100, L501.71514, L500.4050, L501.9520 #### [facility] [address] [facility] [place], [address] Urine albumin measurement [facility] detection limit of 20 mg/L or less (mass/volume)Ordered By: Eduin Watts on 02-06-2025 Albumin DL <= 20 mg/L (U) [Mass/Vol] 31.2 mg/L NO RANGE EST. [facility] Anion gap in Serum or Plasma Ordered By: Eduin Watts on 02-05-2025 Anion gap [Moles/Vol] 12 mmol/L 5- [facility] BUN/creatinine ratioOrdered By: Eduin Watts on 02-05-2025 Urea nitrogen/Creatinine [Mass ratio] 19.7 mg/mg 10-20 [facility] Bilirubin, totalOrdered By: Eduin Watts on 02-05-2025 Bilirubin [Mass/Vol] 0.29 mg/dL 0.00-1.30 [facility] Calculated very low density lipoprotein (VLDL) cholesterol measurementOrdered By: Eduin Watts on 02-05-2025 Calculated very low density lipoprotein (VLDL) cholesterol measurement 18 mg/dL 5- [facility] Carbon dioxide, total [Moles /volume] in Central venous bloodOrdered By: Eduin Watts on 02-05-2025 CO2 [Moles/Vol] 22.4 mmol/L 21.0-32.0 [facility] Chloride assayOrdered By: Santos Watts on 02-05-2025 Chloride [Moles/Vol] 102 mmol/L 98-108 [facility] Free U8Ksllawk By: Eduin garrison on 02-05-2025 Free T3 [Mass/Vol] 2.3 pg/mL 2.18-3.98 [facility] Glomerular filtration rate ( GFR) estimation/1.73 sq m using serum, plasma, or whole bOrdered By: Eduin Watts on 02-05-2025 GFR/1.73 sq M.predicted among non-blacks MDRD (S/P/Bld) [Vol rate/Area] 79 mL/min/{1.73_m2} >60 [facility] Comment on above: mL/min/1.73m2 CKD-EP I Creatinine Equation (2020) LDL calc ser/plasOrdered By: Eduin Watts on 02-05-2025 Cholesterol in LDL [Mass/Vol] 85 mg/dL [facility] Comment on above: Qjuuvlbneq=372-318 m g/dL & Higher Xnss=001 mg/dL or greater Laboratory - Chemistry and C hemistry - challengeOrdered By: Eduin Watts on 02-05-2025 AST [Catalytic activity/Vol] 26 U/L <38 [facility] Potassium measurement (mass/ volume)Ordered By: Eduin Watts on 02-05-2025 Potassium (Unsp spec) [Mass/Vol] 4.5 mmol/L 3.3-5.1 [facility] Screening total cholesterol/ high density lipoprotein (HDL) cholesterol ratioOrdered By: Eduin Watts on 02-05-2025 Cholesterol.total/Choles terol in HDL [Mass ratio] 2.82 {ratio} [facility] Serum creatinine measurement (mass/volume)Ordered By: Eduin Watts on 02-05-2025 Creatinine [Mass/Vol] 1.05 mg/dL 0.70-1.20 [facility] Serum globulin measurementOr dered By: Eduin Watts on 02-05-2025 Globulin (S) [Mass/Vol] 2.7 g/dL 2.2-4.2 [facility] Serum glucose measurement (m ass/volume)Ordered By: Eduin Watts on 02-05-2025 Glucose [Mass/Vol] 86 mg/dL 70-99 [facility] Serum or plasma alanine scott otransferase (ALT) measurementOrdered By: Eduin Watts on 02-05-2025 ALT [Catalytic activity/Vol] 14 U/L <47 [facility] Serum or plasma albumin linda urement (mass/volume)Ordered By: Eduin Watts on 02-05-2025 Albumin [Mass/Vol] 4.2 g/dL 3.4-4.8 [facility] Serum or plasma albumin/glob ulin mass ratioOrdered By: Eduin Watts on 02-05-2025 Albumin/Globulin [Mass ratio] 1.6 {ratio} 0.9-2.4 [facility] Serum or plasma alkaline meghna sphatase measurementOrdered By: Eduin Watts on 02-05-2025 ALP [Catalytic activity/Vol] 86 U/L 40-129 [facility] Serum or plasma calcium linda urement (mass/volume)Ordered By: Eduin Watts on 02-05-2025 Calcium [Mass/Vol] 8.6 mg/dL 7.6-11.0 [facility] Serum or plasma cholesterol in HDL measurement (mass/volume)Ordered By: Eduin Watts on 02-05-2025 Cholesterol in HDL [Mass/Vol] 56 mg/dL >40 [facility] Comment on above: National Cholesterol Education Program (NCEP) guidelines:<40 mg/dL: Low HDL-cholesterol (major risk factor for CHD)>= 60 mg/dL: High HDL-cholesterol (negative risk factor for CHD)HDL-cholesterol is affected by a number of factors, e.g. smoking, exercise, hormones, sex and age. Serum or plasma cholesterol measurement (mass/volume)Ordered By: Eduin Watts on 02-05-2025 Cholesterol [Mass/Vol] 159 mg/dL <201 [facility] Comment on above: Cholesterol level, D esirable <200 mg/dLBorderline high cholesterol 200-239 mg/dLHigh cholesterol >=240 mg/dLRecommendations of the NCEP Adult Treatment Panel for the following risk-cutoff thresholds for the [place] population. Serum or plasma urea nitroge n measurement (mass/volume)Ordered By: Eduin Watts on 02-05-2025 Urea nitrogen [Mass/Vol] 21 mg/dL High 4-19 [facility] Sodium levelOrdered By: Eduin Watts on 02-05-2025 Sodium [Moles/Vol] 136 mmol/L 133-145 [facility] T4 freeOrdered By: Eduin garrison on 02-05-2025 Free T4 [Mass/Vol] 0.90 ng/dL 0.76-1.46 [facility] TSH DL <= 0.005 mIU/L QnOrde red By: Eduin Watts on 02-05-2025 TSH Qn 0.406 uIU/mL 0.300-4.200 [facility] Total proteinOrdered By: Harleen Watts on 02-05-2025 Protein [Mass/Vol] 6.9 g/dL 5.9-8.4 [facility] Triglycerides measurementOrd ered By: Eduin Watts on 02-05-2025 Triglyceride [Mass/Vol] 88 mg/dL <199 [facility] Comment on above: The drugs N-Acetylcy steine and Metamizole may falsely depress this assay. Normal range: <150 mg/dLBorderline High: 150-199 mg/dLHigh: 200-499 mg/dLVery High: >500 mg/dL CNOVon 12-07-2024 CNOV Office Visit (WSTR ) ELOINA TOVAR ([id number]) 1960 M Date Time Provider Department 12/07/24 11:00 AM NURYS [facility] [place] During your visit today, we recorded the following information about you: Temperature Pulse Respiration Blood pressure 97 degrees 60/minute 20/minute 128/90 Weight 116 kg Nurys Salazar APRN.[employer]FTWARE SALES 12/07/2024 11:58 AM Signed This note was [...] Date Reviewed: 12/07/2024 Reviewed by: Nurys Salazar APRN.[employer]FTWARE SALES - Fully Assessed Reason for Visit: Ear [...] malabsorption [K90.8* (more content not included)... Normal [facility] Basic Metabolic Profile (BMP )on 10-11-2024 BUN/CRE 18.7 RATIO Normal - [facility] Comment on above: Performed By: #### L 501.9520, L500.2500, L501.72779, L501.0900, L506.0400 ####[facility] [address] [place], [address] CA,Total 9.2 mg/dL Normal 8.5-10.1 [facility] Comment on above: Performed By: #### L 501.9520, L500.2500, L501.53822, L501.0900, L506.0400 ####[facility] [address] [place], [address] Chloride [Moles/Vol] 106 mmol/L Normal 98-107 [facility] Comment on above: Performed By: #### L 501.9520, L500.2500, L501.96426, L501.0900, L506.0400 ####[facility] [address] [place], [address] CO2 [Moles/Vol] 23.0 mmol/L Normal 21.0-32.0 [facility] Comment on above: Performed By: #### L 501.9520, L500.2500, L501.01777, L501.0900, L506.0400 ####[facility] [address] [place], [address] Creatinine [Mass/Vol] 1.23 mg/dL Normal 0.70-1.30 [facility] Comment on above: Result Comment: The validity of the calculated GFR GFRAA in patients over 70 years has not been determined. Clinical correlation is essential. Performed By: #### L 501.9520, L500.2500, L501.10085, L501.0900, L506.0400 ####[facility] [address] [place], [address] EST GFR - AA 76 mL/min Normal >60 [facility] Comment on above: Result Comment: Afri can [place] GFR Calc Performed By: #### L 501.9520, L500.2500, L501.64784, L501.0900, L506.0400 ####[facility] [address] [place], [address] GAP 6 Normal 5-15 [facility] Comment on above: Performed By: #### L 501.9520, L500.2500, L501.02369, L501.0900, L506.0400 ####[facility] [address] [place], [address] GFR/1.73 sq M.predicted among non-blacks MDRD (S/P/Bld) [Vol rate/Area] 63 mL/min/{1.73_m2} Normal >60 [facility] Comment on above: Result Comment: Non- GFR Calc Performed By: #### L 501.9520, L500.2500, L501.58908, L501.0900, L506.0400 ####[facility] [address] [place], [address] Glucose [Mass/Vol] 89 mg/dL Normal 74-106 [facility] Comment on above: Performed By: #### L 501.9520, L500.2500, L501.83048, L501.0900, L506.0400 ####[facility] [address] [place], [address] Potassium [Moles/Vol] 4.4 mmol/L Normal 3.5-5.1 [facility] Comment on above: Performed By: #### L 501.9520, L500.2500, L501.46935, L501.0900, L506.0400 ####[facility] [address] [place], [address] Sodium [Moles/Vol] 135 mmol/L Low 136-145 [facility] Comment on above: Performed By: #### L 501.9520, L500.2500, L501.13480, L501.0900, L506.0400 ####[facility] [address] [place], [address] Urea nitrogen [Mass/Vol] 23 mg/dL High 7-18 [facility] Comment on above: Performed By: #### L 501.9520, L500.2500, L501.90767, L501.0900, L506.0400 ####[facility] [address] [place], [address] Free T3on 10-11-2024 Free T3 [Mass/Vol] 1.8 pg/mL Low 2.18-3.98 [facility] Comment on above: Performed By: #### L 501.9520, L500.2500, L501.58115, L501.0900, L506.0400 ####[facility] [address] [place], [address] Protein+Creatinine Ratio,Uri neon 10-11-2024 PROT:CRE RATIO Normal 0-200 [facility] Comment on above: Result Comment: PT. UTO Performed By: #### L 501.9520, L500.2500, L501.79762, L501.0900, L506.0400 ####[facility] [address] [place], [address] PROTEIN,UR.RAN. Normal <11.9 [facility] Comment on above: Result Comment: PT. UTO Performed By: #### L 501.9520, L500.2500, L501.42689, L501.0900, L506.0400 ####[facility] [address] [place], [address] UR CREAT Normal NO RANGE EST. [facility] Comment on above: Result Comment: PT. UTO Performed By: #### L 501.9520, L500.2500, L501.48351, L501.0900, L506.0400 ####[facility] [address] [place], [address] T4 Free Directon 10-11-2024 T4 FREE DIRECT 0.82 ng/dL Normal 0.76-1.46 [facility] Comment on above: Performed By: #### L 501.9520, L500.2500, L501.43356, L501.0900, L506.0400 ####[facility] [address] [place], [address] Thyroid Stim Hormone (TSH)on 10-11-2024 TSH 0.858 uIU/mL Normal 0.358-3.740 [facility] Comment on above: Performed By: #### L 501.9520, L500.2500, L501.80311, L501.0900, L506.0400 ####[facility] [address] [place], [address] HIP, UNI W/ Pelvis 2-3 Views on 08-19-2024 HIP, UNI W/ Pelvis 2-3 Views [facility] Imaging Services [address] [place] [address] HIP, UNI W/ Pelvis 2-3 Views MR#: [id number] Acct: [id number] Name: ELOINA TOVAR Rep #: [id number] : 1960 M 64 From: Carlos quigley MD PCP: Dr. Eduin Watts MD Status: REG CLI Study: HIP, UNI W/ Pelvis 2-3 Views Date of Exam: 11/11 Exam# [id number] Ordering Dr: Eduin Watts MD [id number] STUDY: X-RAY - PELVIS AND RIGHT HIP [...] 9:00 EST Reading Location ID and State: [address] [place] [address] , Service support , CC: Dr. 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: Signed Normal [facility] Comprehensive Metabolic Prof ilon 06-10-2024 Albumin [Mass/Vol] 3.8 g/dL Normal 3.2-5.0 [facility] Comment on above: Performed By: #### L 501.08797, L501.9520, L500.4100, L500.4050, L506.0400 ####[facility] [address] [place], [address] Albumin/Globulin [Mass ratio] 1.1 {ratio} Normal 0.9-2.4 [facility] Comment on above: Performed By: #### L 501.80448, L501.9520, L500.4100, L500.4050, L506.0400 ####[facility] [address] [place], [address] ALK P 129 U/L High 45-117 [facility] Comment on above: Performed By: #### L 501.24878, L501.9520, L500.4100, L500.4050, L506.0400 ####[facility] [address] [place], [address] ALT [Catalytic activity/Vol] 18 U/L Normal 16-61 [facility] Comment on above: Performed By: #### L 501.06790, L501.9520, L500.4100, L500.4050, L506.0400 ####[facility] [address] [place], [address] AST [Catalytic activity/Vol] 23 U/L Normal 15-37 [facility] Comment on above: Performed By: #### L 501.55178, L501.9520, L500.4100, L500.4050, L506.0400 ####[facility] [address] [place], [address] Bilirubin [Mass/Vol] 0.50 mg/dL Normal 0.20-1.00 [facility] Comment on above: Result Comment: For patients on eltrombopag therapy, use of Dimension [place] TBIL is not recommended. Performed By: #### L 501.79885, L501.9520, L500.4100, L500.4050, L506.0400 ####[facility] [address] [place], [address] BUN/CRE 14.1 RATIO Normal 10-20 [facility] Comment on above: Performed By: #### L 501.41357, L501.9520, L500.4100, L500.4050, L506.0400 ####[facility] [address] [place], [address] CA,Total 9.6 mg/dL Normal 8.5-10.1 [facility] Comment on above: Performed By: #### L 501.22992, L501.9520, L500.4100, L500.4050, L506.0400 ####[facility] [address] [place], [address] Chloride [Moles/Vol] 105 mmol/L Normal 98-107 [facility] Comment on above: Performed By: #### L 501.81333, L501.9520, L500.4100, L500.4050, L506.0400 ####[facility] [address] [place], [address] CO2 [Moles/Vol] 24.0 mmol/L Normal 21.0-32.0 [facility] Comment on above: Performed By: #### L 501.77265, L501.9520, L500.4100, L500.4050, L506.0400 ####[facility] [address] [place], [address] Creatinine [Mass/Vol] 1.35 mg/dL High 0.70-1.30 [facility] Comment on above: Result Comment: The validity of the calculated GFR GFRAA in patients over 70 years has not been determined. Clinical correlation is essential. Performed By: #### L 501.71962, L501.9520, L500.4100, L500.4050, L506.0400 ####[facility] [address] [place], [address] EST GFR - AA 68 mL/min Normal >60 [facility] Comment on above: Result Comment: Afri can [place] GFR Calc Performed By: #### L 501.85222, L501.9520, L500.4100, L500.4050, L506.0400 ####[facility] [address] [place], [address] GAP 8 Normal 5-15 [facility] Comment on above: Performed By: #### L 501.14528, L501.9520, L500.4100, L500.4050, L506.0400 ####[facility] [address] [place], [address] GFR/1.73 sq M.predicted among non-blacks MDRD (S/P/Bld) [Vol rate/Area] 56 mL/min/{1.73_m2} Low >60 [facility] Comment on above: Result Comment: Non- GFR Calc Performed By: #### L 501.03009, L501.9520, L500.4100, L500.4050, L506.0400 ####[facility] [address] [place], [address] Globulin (S) [Mass/Vol] 3.6 g/dL Normal 2.2-4.2 [facility] Comment on above: Performed By: #### L 501.97724, L501.9520, L500.4100, L500.4050, L506.0400 ####[facility] [address] [place], [address] Glucose [Mass/Vol] 100 mg/dL Normal 74-106 [facility] Comment on above: Result Comment: Fast ing Glucose result from 100 to 125 mg/dL suggests IMPAIRED HOMEOSTASIS per A.D.A. criteria. Performed By: #### L 501.23654, L501.9520, L500.4100, L500.4050, L506.0400 ####[facility] [address] [place], [address] Potassium [Moles/Vol] 4.4 mmol/L Normal 3.5-5.1 [facility] Comment on above: Performed By: #### L 501.62610, L501.9520, L500.4100, L500.4050, L506.0400 ####[facility] [address] [place], [address] Sodium [Moles/Vol] 137 mmol/L Normal 136-145 [facility] Comment on above: Performed By: #### L 501.68045, L501.9520, L500.4100, L500.4050, L506.0400 ####[facility] [address] [place], [address] T PROT 7.4 g/dL Normal 6.4-8.2 [facility] Comment on above: Performed By: #### L 501.64200, L501.9520, L500.4100, L500.4050, L506.0400 ####[facility] [address] [place], [address] Urea nitrogen [Mass/Vol] 19 mg/dL High 7-18 [facility] Comment on above: Performed By: #### L 501.41475, L501.9520, L500.4100, L500.4050, L506.0400 ####[facility] [address] [place], [address] Free T3on 06-10-2024 Free T3 [Mass/Vol] 2.3 pg/mL Normal 2.18-3.98 [facility] Comment on above: Performed By: #### L 501.40806, L501.9520, L500.4100, L500.4050, L506.0400 ####[facility] [address] [place], [address] Lipid Profileon 06-10-2024 Cholesterol [Mass/Vol] 188 mg/dL Normal 200 [facility] Comment on above: Result Comment: <200 mg/dL Desirable 200-240 mg/dL Borderline >240 mg/dL High Risk Performed By: #### L 501.35638, L501.9520, L500.4100, L500.4050, L506.0400 ####[facility] [address] [place], [address] Cholesterol in HDL [Mass/Vol] 70 mg/dL Normal [facility] Comment on above: Result Comment: The drugs N-Acetylcysteine and Metamizole may falsely depress this assay. Reference Range HDL <40 mg/dL Low HDL Cholesterol HDL >or= 60 mg/dL High HDL Cholesterol Performed By: #### L 501.82485, L501.9520, L500.4100, L500.4050, L506.0400 ####[facility] [address] [place], [address] Cholesterol in LDL [Mass/Vol] 105 mg/dL Normal 0-130 [facility] Comment on above: Performed By: #### L 501.98063, L501.9520, L500.4100, L500.4050, L506.0400 ####[facility] [address] [place], [address] Cholesterol in VLDL [Mass/Vol] 13 mg/dL Normal 5-40 [facility] Comment on above: Performed By: #### L 501.62865, L501.9520, L500.4100, L500.4050, L506.0400 ####[facility] [address] [place], [address] Triglyceride [Mass/Vol] 65 mg/dL Normal [facility] Comment on above: Result Comment: The drugs N-Acetylcysteine and Metamizole may falsely depress this assay. Serum Triglycerides Reference Interval Normal <150 mg/dL Borderline high 150 - 199 mg/dL High 200 - 499 mg/dL Very High > or = 500 mg/dL Performed By: #### L 501.57185, L501.9520, L500.4100, L500.4050, L506.0400 ####[facility] [address] [place], [address] T4 Free Directon 06-10-2024 T4 FREE DIRECT 0.79 ng/dL Normal 0.76-1.46 [facility] Comment on above: Performed By: #### L 501.91032, L501.9520, L500.4100, L500.4050, L506.0400 ####[facility] [address] [place], [address] Thyroid Stim Hormone (TSH)on 06-10-2024 TSH 0.945 uIU/mL Normal 0.358-3.740 [facility] Comment on above: Performed By: #### L 501.64708, L501.9520, L500.4100, L500.4050, L506.0400 ####[facility] [address] [facility] [place], [address] 12 Lead EKGon 06-08-2024 12 Lead EKG [facility] Cardiovascular Services [address] [place] [address] 12 Lead EKG 06/08/24 1245 MR#: [id number] Acct: [id number] Name: ELOINA TOVAR Rep #: [id number] : 1960 64 From: Nimesh Lopez MD [...] abnormality Abnormal ECG Confirmed by Nimesh Lopez ([id number]), metropolitan editor DARION FLORES ([id number]) on 06/10/2024 11:00:27 AM Referred By: Confirmed By:Nimesh Lopez 06/10/241099 Date Nimesh Lopez MD CC: Dr. Veto Da Silva MD; Dr. Eduin Watts MD Signed Normal [facility] Basic Metabolic Profile (BMP )on 06-08-2024 BUN/CRE 15.9 RATIO Normal -20 [facility] Comment on above: Order Comment: 'TROP ' Serial specimen #1, #2 or #3: 1 Performed By: #### L 500.2500, L100.0100, L501.4020 ####[facility] [address] [place], [address] CA,Total 9.1 mg/dL Normal 8.5-10.1 [facility] Comment on above: Order Comment: 'TROP ' Serial specimen #1, #2 or #3: 1 Performed By: #### L 500.2500, L100.0100, L501.4020 ####[facility] [address] [place], [address] Chloride [Moles/Vol] 110 mmol/L High 98-107 [facility] Comment on above: Order Comment: 'TROP ' Serial specimen #1, #2 or #3: 1 Performed By: #### L 500.2500, L100.0100, L501.4020 ####[facility] [address] [place], [address] CO2 [Moles/Vol] 26.0 mmol/L Normal 21.0-32.0 [facility] Comment on above: Order Comment: 'TROP ' Serial specimen #1, #2 or #3: 1 Performed By: #### L 500.2500, L100.0100, L501.4020 ####[facility] [address] [place], [address] Creatinine [Mass/Vol] 1.13 mg/dL Normal 0.70-1.30 [facility] Comment on above: Order Comment: 'TROP ' Serial specimen #1, #2 or #3: 1 Result Comment: The validity of the calculated GFR GFRAA in patients over 70 years has not been determined. Clinical correlation is essential. Performed By: #### L 500.2500, L100.0100, L501.4020 ####[facility] [address] [place], [address] ECRCL 80.72 ml/min Normal [facility] Comment on above: Order Comment: 'TROP ' Serial specimen #1, #2 or #3: 1 Performed By: #### L 500.2500, L100.0100, L501.4020 ####[facility] [address] [place], [address] EST GFR - AA 84 mL/min Normal >60 [facility] Comment on above: Order Comment: 'TROP ' Serial specimen #1, #2 or #3: 1 Result Comment: Afri can [place] GFR Calc Performed By: #### L 500.2500, L100.0100, L501.4020 ####[facility] [address] [place], [address] GAP 5 Normal 5-15 [facility] Comment on above: Order Comment: 'TROP ' Serial specimen #1, #2 or #3: 1 Performed By: #### L 500.2500, L100.0100, L501.4020 ####[facility] [address] [place], [address] GFR/1.73 sq M.predicted among non-blacks MDRD (S/P/Bld) [Vol rate/Area] 69 mL/min/{1.73_m2} Normal >60 [facility] Comment on above: Order Comment: 'TROP ' Serial specimen #1, #2 or #3: 1 Result Comment: Non- GFR Calc Performed By: #### L 500.2500, L100.0100, L501.4020 ####[facility] [address] [place], [address] Glucose [Mass/Vol] 100 mg/dL Normal 74-106 [facility] Comment on above: Order Comment: 'TROP ' Serial specimen #1, #2 or #3: 1 Result Comment: Fast ing Glucose result from 100 to 125 mg/dL suggests IMPAIRED HOMEOSTASIS per A.D.A. criteria. Performed By: #### L 500.2500, L100.0100, L501.4020 ####[facility] [address] [place], [address] Potassium [Moles/Vol] 4.2 mmol/L Normal 3.5-5.1 [facility] Comment on above: Order Comment: 'TROP ' Serial specimen #1, #2 or #3: 1 Performed By: #### L 500.2500, L100.0100, L501.4020 ####[facility] [address] [place], [address] Sodium [Moles/Vol] 141 mmol/L Normal 136-145 [facility] Comment on above: Order Comment: 'TROP ' Serial specimen #1, #2 or #3: 1 Performed By: #### L 500.2500, L100.0100, L501.4020 ####[facility] [address] [place], [address] Urea nitrogen [Mass/Vol] 18 mg/dL Normal 7-18 [facility] Comment on above: Order Comment: 'TROP ' Serial specimen #1, #2 or #3: 1 Performed By: #### L 500.2500, L100.0100, L501.4020 ####[facility] [address] [place], [address] Brain/Head without Contrasto n 06-08-2024 Brain/Head without Contrast [facility] Imaging Services [address] [place] [address] Brain/Head without Contrast MR#: [id number] Acct: [id number] Name: ELOINA TOVAR Rep #: [id number] : 1960 M 64 From: Mariana Amos MD PCP: Dr. Eduin Watts MD Status: REG ER Study: Brain/Head without Contrast Date of Exam: 05/20 10/11 Exam# [id number] Ordering Dr: Veto Da Silva [place] [id number] INDICATION: head trauma on thinner EXAMINATION: CT [...] Da Silva MD; Dr. 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: Signed Normal [facility] CBC W/Diff, Automatedon 09-2 Absolute Lymph 0.68 X10 3/uL Low 0.83-4.51 [facility] Comment on above: Performed By: #### L 500.2500, L100.0100, L501.4020 ####[facility] [address] [place], [address] Absolute Neut 3.1 X10 3/uL Normal 2.0-7.7 [facility] Comment on above: Performed By: #### L 500.2500, L100.0100, L501.4020 ####[facility] [address] [place], [address] Basophils/100 WBC (Bld) 0.9 % Normal 0-1 [facility] Comment on above: Performed By: #### L 500.2500, L100.0100, L501.4020 ####[facility] [address] [place], [address] Eosinophils/100 WBC (Bld) 3.5 % Normal 0-5 [facility] Comment on above: Performed By: #### L 500.2500, L100.0100, L501.4020 ####[facility] [address] [place], [address] Erythrocyte distribution width (RBC) [Ratio] 14.0 % Normal 11.6-14.6 [facility] Comment on above: Performed By: #### L 500.2500, L100.0100, L501.4020 ####[facility] [address] [place], [address] Hematocrit (Bld) [Volume fraction] 41.2 % Normal 40-54 [facility] Comment on above: Performed By: #### L 500.2500, L100.0100, L501.4020 ####[facility] [address] [place], [address] Hemoglobin (Bld) [Mass/Vol] 13.4 g/dL Normal 13.0-16.5 [facility] Comment on above: Performed By: #### L 500.2500, L100.0100, L501.4020 ####[facility] [address] [place], [address] IG% 0.200 Normal 0.0-0.9 [facility] Comment on above: Result Comment: IG% - Immature Granulocytes (promyelocytes, myelocytes and metamyelocytes) > 1% indicates that a LEFT SHIFT is Present. Performed By: #### L 500.2500, L100.0100, L501.4020 ####[facility] [address] [place], [address] Lymphocytes/100 WBC (Bld) 15.0 % Low 19-41 [facility] Comment on above: Performed By: #### L 500.2500, L100.0100, L501.4020 ####[facility] [address] [place], [address] MCH (RBC) [Entitic mass] 31.5 pg Normal 27.0-32.0 [facility] Comment on above: Performed By: #### L 500.2500, L100.0100, L501.4020 ####[facility] [address] [place], [address] MCHC (RBC) [Mass/Vol] 32.5 g/dL Normal 32-36 [facility] Comment on above: Performed By: #### L 500.2500, L100.0100, L501.4020 ####[facility] [address] [place], [address] MCV (RBC) [Entitic vol] 96.7 fL High 80-94 [facility] Comment on above: Performed By: #### L 500.2500, L100.0100, L501.4020 ####[facility] [address] [place], [address] Monocytes/100 WBC (Bld) 11.7 % High 0-10 [facility] Comment on above: Performed By: #### L 500.2500, L100.0100, L501.4020 ####[facility] [address] [place], [address] Neutrophils/100 WBC (Bld) 68.7 % Normal 47-70 [facility] Comment on above: Performed By: #### L 500.2500, L100.0100, L501.4020 ####[facility] [address] [place], [address] Nucleated RBC (Bld) [#/Vol] 0 10*3/uL Normal 0-5 [facility] Comment on above: Performed By: #### L 500.2500, L100.0100, L501.4020 ####[facility] [address] [place], [address] Platelet mean volume (Bld) [Entitic vol] 9.9 fL Normal 6.2-12.0 [facility] Comment on above: Performed By: #### L 500.2500, L100.0100, L501.4020 ####[facility] [address] [place], [address] Platelets (Bld) [#/Vol] 234 10*3/uL Normal 150-450 [facility] Comment on above: Performed By: #### L 500.2500, L100.0100, L501.4020 ####[facility] [address] [place], [address] RBC (Bld) [#/Vol] 4.26 10*6/uL Low 4.6-6.2 [facility] Comment on above: Performed By: #### L 500.2500, L100.0100, L501.4020 ####[facility] [address] [place], [address] RDW SD 49.4 fl High 35.1-43.9 [facility] Comment on above: Performed By: #### L 500.2500, L100.0100, L501.4020 ####[facility] [address] [place], [address] WBC (Bld) [#/Vol] 4.5 10*3/uL Normal 4.4-11.0 [facility] Comment on above: Performed By: #### L 500.2500, L100.0100, L501.4020 ####[facility] [address] [place], [address] Chest PA and Lateralon 06-08 Chest PA and Lateral [facility] Imaging Services [address] [place] [address] Chest PA and Lateral MR#: [id number] Acct: [id number] Name: ELOINA TOVAR Rep #: [id number] : 1960 M 64 From: Mariana Amos MD PCP: Dr. Eduin Watts MD Status: [facility] Study: Chest PA and Lateral Date of Exam: 06/08/24 Exam# [id number] Ordering Dr: Veto Da Silva [place] [id number] INDICATION: chest pain EXAMINATION/TECHNIQUE: X-RAY - XR [...] Da Silva MD; Dr. 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 Eduin Watts MD Status:DEP ER Location: ED HPI History of Present Illness Chief Complaint: Weakness Informant: patient Onset/Context/Timing Maximum Severity: Mild Narrative Narrative: 64-year-old male past medical history of hypertension, COPD, diabetes, DVT, IN no stents, stroke and known thoracic aortic [...] symptoms: No Recent Illness/Hospitalizatio n: No PFSH [facility] Medical History JOVEL (dyspnea on exertion) Hyperlipidemia [...] BID 11/07/22 Unknown History a dose pack (ReCoTech DVT-PE Treat 30D Start) bupropion HCl 150 [...] Reports no (more content not included)... Normal [facility] L501.4020on 06-08-2024 TROPONIN-I HS 6 pg/mL Normal 3.0-78.0 [facility] Comment on above: Order Comment: 'TROP ' Serial specimen #1, #2 or #3: 1 Result Comment: Aquiles mena Note: New Test Units and Gender Specific Reference Ranges. For more information see Policy Stat Procedure [place] High Sensitivity Troponin (TNIH) and attachments. Performed By: #### L 500.2500, L100.0100, L501.4020 ####[facility] [address] [place], [address] Urinalysis, Completeon 06-08 BACTERIA Normal None Seen [facility] Comment on above: Order Comment: COLLE CTOR TO SPECIFY Result Comment: NO U RINE COLLECTED. PATIENT DEPARTED ED. Performed By: #### L 400.0001 ####[facility] [address] [place], [address] BILIRUBIN URINE Normal Negative [facility] Comment on above: Order Comment: LU CTOR TO SPECIFY Result Comment: NO U RINE COLLECTED. PATIENT DEPARTED ED. Performed By: #### L 400.0001 ####[facility] [address] [place], [address] Clarity (U) Normal Clear [facility] Comment on above: Order Comment: COLLE CTOR TO SPECIFY Result Comment: NO U RINE COLLECTED. PATIENT DEPARTED ED. Performed By: #### L 400.0001 ####[facility] [address] [place], [address] Color (U) Normal Yellow [facility] Comment on above: Order Comment: LU CTOR TO SPECIFY Result Comment: NO U RINE COLLECTED. PATIENT DEPARTED ED. Performed By: #### L 400.0001 ####[facility] [address] [place], [address] EPI,SQUAMOUS Normal 0-5 [facility] Comment on above: Order Comment: LU CTOR TO SPECIFY Result Comment: NO U RINE COLLECTED. PATIENT DEPARTED ED. Performed By: #### L 400.0001 ####[facility] [address] [place], [address] GLUCOSE, UR Normal Normal [facility] Comment on above: Order Comment: LU CTOR TO SPECIFY Result Comment: NO U RINE COLLECTED. PATIENT DEPARTED ED. Performed By: #### L 400.0001 ####[facility] [address] [place], [address] KETONE UR Normal Negative [facility] Comment on above: Order Comment: LU CTOR TO SPECIFY Result Comment: NO U RINE COLLECTED. PATIENT DEPARTED ED. Performed By: #### L 400.0001 ####[facility] [address] [place], [address] LEUK ESTERASE Normal Negative [facility] Comment on above: Order Comment: LU CTOR TO SPECIFY Result Comment: NO U RINE COLLECTED. PATIENT DEPARTED ED. Performed By: #### L 400.0001 ####[facility] [address] [place], [address] Mucus Ql (Urine sed) Normal [facility] Comment on above: Order Comment: LU CTOR TO SPECIFY Result Comment: NO U RINE COLLECTED. PATIENT DEPARTED ED. Performed By: #### L 400.0001 ####[facility] [address] [place], [address] Nitrite Ql (U) Normal Negative [facility] Comment on above: Order Comment: LU CTOR TO SPECIFY Result Comment: NO U RINE COLLECTED. PATIENT DEPARTED ED. Performed By: #### L 400.0001 ####[facility] [address] [facility] [address] OCCULT BLOOD-UR Normal Negative [facility] Comment on above: Order Comment: LU CTOR TO SPECIFY Result Comment: NO U RINE COLLECTED. PATIENT DEPARTED ED. Performed By: #### L 400.0001 ####[facility] [address] [facility] [address] pH UR Normal 5.0 - 8.0 [facility] Comment on above: Order Comment: LU CTOR TO SPECIFY Result Comment: NO U RINE COLLECTED. PATIENT DEPARTED ED. Performed By: #### L 400.0001 ####[facility] [address] [facility] [address] PROT DIPSTX Normal Negative [facility] Comment on above: Order Comment: LU CTOR TO SPECIFY Result Comment: NO U RINE COLLECTED. PATIENT DEPARTED ED. Performed By: #### L 400.0001 ####[facility] [address] [facility] [address] RBC Normal 0-5 [facility] Comment on above: Order Comment: LU CTOR TO SPECIFY Result Comment: NO U RINE COLLECTED. PATIENT DEPARTED ED. Performed By: #### L 400.0001 ####[facility] [address] [place], [address] SP.GR. DIPSTX Normal 1.002-1.030 [facility] Comment on above: Order Comment: COLLE CTOR TO SPECIFY Result Comment: NO U RINE COLLECTED. PATIENT DEPARTED ED. Performed By: #### L 400.0001 ####[facility] [address] [place], [address] UR Preservative Normal [facility] Comment on above: Order Comment: COLLE CTOR TO SPECIFY Result Comment: NO U RINE COLLECTED. PATIENT DEPARTED ED. Performed By: #### L 400.0001 ####[facility] [address] [place], [address] UROBILI Normal Normal [facility] Comment on above: Order Comment: COLLE CTOR TO SPECIFY Result Comment: NO U RINE COLLECTED. PATIENT DEPARTED ED. Performed By: #### L 400.0001 ####[facility] [address] [place], [address] WBC Normal 0-5 [facility] Comment on above: Order Comment: COLLE CTOR TO SPECIFY Result Comment: NO U RINE COLLECTED. PATIENT DEPARTED ED. Performed By: #### L 400.0001 ####[facility] [address] [place], [address] CREATININE FINGERSTICKon CREATININE WB < 1.0 Normal 0.70-1.30 [facility] Comment on above: Performed By: #### L 9100.0200 ####[facility] [address] [place], [address] EGFR WB > 60.0000 Normal >60 [facility] Comment on above: Performed By: #### L 9100.0200 ####[facility] [address] [place], [address] CTA Chest W/WO Contraston CTA Chest W/WO Contrast [facility] Imaging Services [address] [place], [place] [address] CTA Chest W/WO Contrast MR#: [id number] Acct: [id number] Name: ELOINA TOVAR Rep #: [id number] : 1960 M 64 From: Carlos quigley MD PCP: Dr. 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: Signed Normal [facility] Absolute lymphocyte countOrd ered By: Yolie Skinner on 01-11-2024 Lymphocytes Auto (Unsp spec) [#/Vol] 0.68 10*3/uL 0.83-4.51 [facility] Automated lymphocyte count a s percentage of total leukocytesOrdered By: Yolie Skinner on 01-11-2024 Lymphocytes/100 WBC Auto (Unsp spec) 9.0 % 19-41 [facility] Basophil percentageOrdered B y: Yolie Skinner on 01-11-2024 Basophils/100 WBC (Bld) 0.4 % 0-1 [facility] Chloride [Moles/Vol] 106 mmol/L 98-107 [facility] Eosinophils/100 WBC (Bld) 0.9 % 0-5 [facility] Glucose [Mass/Vol] 99 mg/dL 74-106 [facility] Hemoglobin (Bld) [Mass/Vol] 13.0 g/dL 13.0-16.5 [facility] Monocytes/100 WBC (Bld) 8.1 % 0-10 [facility] Neutrophils (Bld) [#/Vol] 6.1 10*3/uL 2.0-7.7 [facility] Neutrophils/100 WBC (Bld) 81.3 % 47-70 [facility] Potassium [Moles/Vol] 4.6 mmol/L 3.5-5.1 [facility] Sodium [Moles/Vol] 137 mmol/L 136-145 [facility] WBC (Bld) [#/Vol] 7.5 10*3/uL 4.4-11.0 [facility] Determination of erythrocyte mean corpuscular volume (MCV)Ordered By: Yolie Skinner on 01-11-2024 MCV (RBC) [Entitic vol] 95.5 fL 80-94 [facility] Erythrocyte distribution wid th ratioOrdered By: Yolie Skinner on 01-11-2024 Erythrocyte distribution width (RBC) [Ratio] 13.7 % 11.6-14.6 [facility] Erythrocyte distribution wid th standard deviationOrdered By: Yolie Skinner on 01-11-2024 Erythrocyte distribution width (RBC) [Entitic vol] 47.5 fL 35.1-43.9 [facility] Hematocrit Auto (Bld) [Volum e fraction]Ordered By: Yolie Skinner on 01-11-2024 Hematocrit (Bld) [Volume fraction] 40.0 % 40-54 [facility] Immature granulocytes/100 WB C Auto (Bld)Ordered By: Yolie Skinner on 01-11-2024 Immature granulocytes/100 WBC (Bld) 0.300 % 0.0-0.9 [facility] Comment on above: IG% - Immature Granu locytes (promyelocytes, myelocytes and metamyelocytes) > 1% indicates that a LEFT SHIFT is Present. Laboratory - Chemistry and C hemistry - challengeOrdered By: Yolie Skinner on 01-11-2024 CO2 [Moles/Vol] 24.0 mmol/L 21.0-32.0 [facility] Urea nitrogen/Creatinine [Mass ratio] 13.6 mg/mg 10-20 [facility] Laboratory - Hematology and Cell countsOrdered By: Yolie Skinner on 01-11-2024 MCH (RBC) [Entitic mass] 31.0 pg 27.0-32.0 [facility] MCHC (RBC) [Mass/Vol] 32.5 g/dL 32-36 [facility] Nucleated RBC/100 WBC (Bld) [Ratio] 0 % 0-5 [facility] Platelet mean volume (Bld) [Entitic vol] 9.4 fL 6.2-12.0 [facility] Platelets (Bld) [#/Vol] 254 10*3/uL 150-450 [facility] No Panel InformationOrdered By: Yolie Skinner on 01-11-2024 Estimated Creatinine Clearance Calc 61.32 ml/min [facility] Estimated GFR (MDRD) Amer 59 mL/min >60 [facility] Comment on above: GFR Calc Estimated GFR (MDRD) Non-Af Amer 49 mL/min >60 [facility] Comment on above: Non- GFR Calc RBC Auto (Bld) [#/Vol]Ordere d By: Yolie Skinner on 01-11-2024 RBC (Bld) [#/Vol] 4.19 10*6/uL 4.6-6.2 [facility] Serum or plasma calcium linda urement (mass/volume)Ordered By: Yolie Skinner on 01-11-2024 Calcium [Mass/Vol] 8.9 mg/dL 8.5-10.1 [facility] Serum or plasma creatinine m easurement (mass/volume)Ordered By: Yolie Skinner on 01-11-2024 Creatinine [Mass/Vol] 1.54 mg/dL 0.70-1.30 [facility] Comment on above: The validity of the calculated GFR & GFRAA in patients over 70 years has not been determined. Clinical correlation is essential. Serum or plasma urea nitroge n measurement (mass/volume)Ordered By: Yolie Skinner on 01-11-2024 Urea nitrogen [Mass/Vol] 21 mg/dL 7-18 [facility] Thin prep Papanicolaou smear with manual screeningOrdered By: Yolie Skinner on 01-11-2024 Thin prep Papanicolaou smear with manual screening 7 5-15 [facility] Absolute lymphocyte countOrd ered By: Eduin Watts on 12-14-2023 Lymphocytes Auto (Unsp spec) [#/Vol] 0.94 10*3/uL 0.83-4.51 [facility] Automated lymphocyte count a s percentage of total leukocytesOrdered By: Eduin Watts on 12-14-2023 Lymphocytes/100 WBC Auto (Unsp spec) 19.0 % 19-41 [facility] Basophil percentageOrdered B y: Eduin Watts on 12-14-2023 Basophils/100 WBC (Bld) 1.0 % 0-1 [facility] Bilirubin [Mass/Vol] 0.40 mg/dL 0.20-1.00 [facility] Comment on above: For patients on eltr ombopag therapy, use of Dimension [place] TBIL is not recommended. Chloride [Moles/Vol] 111 mmol/L 98-107 [facility] Eosinophils/100 WBC (Bld) 1.8 % 0-5 [facility] Glucose [Mass/Vol] 105 mg/dL 74-106 [facility] Comment on above: Fasting Glucose resu lt from 100 to 125 mg/dL suggests IMPAIRED HOMEOSTASIS per A.D.A. criteria. Hemoglobin (Bld) [Mass/Vol] 13.8 g/dL 13.0-16.5 [facility] Monocytes/100 WBC (Bld) 11.7 % 0-10 [facility] Neutrophils (Bld) [#/Vol] 3.3 10*3/uL 2.0-7.7 [facility] Neutrophils/100 WBC (Bld) 66.3 % 47-70 [facility] Potassium [Moles/Vol] 4.6 mmol/L 3.5-5.1 [facility] Protein [Mass/Vol] 7.2 g/dL 6.4-8.2 [facility] Sodium [Moles/Vol] 141 mmol/L 136-145 [facility] WBC (Bld) [#/Vol] 4.9 10*3/uL 4.4-11.0 [facility] Determination of erythrocyte mean corpuscular volume (MCV)Ordered By: Eduin Watts on 12-14-2023 MCV (RBC) [Entitic vol] 96.6 fL 80-94 [facility] Erythrocyte distribution wid th ratioOrdered By: Eduin Watts on 12-14-2023 Erythrocyte distribution width (RBC) [Ratio] 12.9 % 11.6-14.6 [facility] Erythrocyte distribution wid th standard deviationOrdered By: Eduin Watts on 12-14-2023 Erythrocyte distribution width (RBC) [Entitic vol] 46.1 fL 35.1-43.9 [facility] Hematocrit Auto (Bld) [Volum e fraction]Ordered By: Eduin Watts on 12-14-2023 Hematocrit (Bld) [Volume fraction] 43.1 % 40-54 [facility] Immature granulocytes/100 WB C Auto (Bld)Ordered By: Eduin Watts on 12-14-2023 Immature granulocytes/100 WBC (Bld) 0.200 % 0.0-0.9 [facility] Comment on above: IG% - Immature Granu locytes (promyelocytes, myelocytes and metamyelocytes) > 1% indicates that a LEFT SHIFT is Present. Laboratory - Chemistry and C hemistry - challengeOrdered By: Eduin Watts on 12-14-2023 Albumin/Globulin [Mass ratio] 1.1 {ratio} 0.9-2.4 [facility] ALP [Catalytic activity/Vol] 99 U/L 45-117 [facility] ALT [Catalytic activity/Vol] 18 U/L 16-61 [facility] CO2 [Moles/Vol] 24.0 mmol/L 21.0-32.0 [facility] Cobalamin (Vitamin B12) [Mass/Vol] 428 pg/mL 211-911 [facility] Globulin (S) [Mass/Vol] 3.5 g/dL 2.2-4.2 [facility] Urea nitrogen/Creatinine [Mass ratio] 14.2 mg/mg 10-20 [facility] Laboratory - Hematology and Cell countsOrdered By: Eduin Watts on 12-14-2023 MCH (RBC) [Entitic mass] 30.9 pg 27.0-32.0 [facility] MCHC (RBC) [Mass/Vol] 32.0 g/dL 32-36 [facility] Nucleated RBC/100 WBC (Bld) [Ratio] 0 % 0-5 [facility] Platelet mean volume (Bld) [Entitic vol] 9.8 fL 6.2-12.0 [facility] Platelets (Bld) [#/Vol] 265 10*3/uL 150-450 [facility] No Panel InformationOrdered By: Eduin Watts on 12-14-2023 Estimated GFR (MDRD) Amer 65 mL/min >60 [facility] Comment on above: GFR Calc Estimated GFR (MDRD) Non-Af Amer 54 mL/min >60 [facility] Comment on above: Non- GFR Calc Free Triiodothyronine (T3) pg/dL 1.9 pg/mL 2.18-3.98 [facility] RBC Auto (Bld) [#/Vol]Ordere d By: Eduin Watts on 12-14-2023 RBC (Bld) [#/Vol] 4.46 10*6/uL 4.6-6.2 [facility] Serum or plasma calcium linda urement (mass/volume)Ordered By: Eduin Watts on 12-14-2023 Calcium [Mass/Vol] 8.9 mg/dL 8.5-10.1 [facility] Serum or plasma creatinine m easurement (mass/volume)Ordered By: Eduin Watts on 12-14-2023 Creatinine [Mass/Vol] 1.41 mg/dL 0.70-1.30 [facility] Comment on above: The validity of the calculated GFR & GFRAA in patients over 70 years has not been determined. Clinical correlation is essential. Serum or plasma thyroid stim ulating hormone (TSH) measurement (units/volume)Ordered By: Eduin Watts on 12-14-2023 TSH Qn 1.41 uIU/mL 0.358-3.74 [facility] Serum or plasma transthyreti n measurement (mass/volume)Ordered By: Eduin Watts on 12-14-2023 Prealbumin [Mass/Vol] 18.8 mg/dL 20.0-40.0 [facility] Serum or plasma urea nitroge n measurement (mass/volume)Ordered By: Eduin Watts on 12-14-2023 Urea nitrogen [Mass/Vol] 20 mg/dL 7-18 [facility] Thin prep Papanicolaou smear with manual screeningOrdered By: Eduin Watts on 12-14-2023 Thin prep Papanicolaou smear with manual screening 3.7 g/dL 3.2-5.0 [facility] Thin prep Papanicolaou smear with manual screening 24 U/L 15-37 [facility] Thin prep Papanicolaou smear with manual screening 6 5-15 [facility] Thin prep Papanicolaou smear with manual screening 0.66 ng/dL 0.76-1.46 [facility] Absolute lymphocyte countOrd ered By: Chela Falk on 10-06-2023 Lymphocytes Auto (Unsp spec) [#/Vol] 1.01 10*3/uL 0.83-4.51 [facility] Automated lymphocyte count a s percentage of total leukocytesOrdered By: Chela Falk on 10-06-2023 Lymphocytes/100 WBC Auto (Unsp spec) 17.6 % 19- [facility] Basophil percentageOrdered B y: Chela Falk on 10-06-2023 Basophils/100 WBC (Bld) 1.0 % 0-1 [facility] Chloride [Moles/Vol] 104 mmol/L 98-107 [facility] Eosinophils/100 WBC (Bld) 1.6 % 0-5 [facility] Glucose [Mass/Vol] 101 mg/dL 74-106 [facility] Comment on above: Fasting Glucose resu lt from 100 to 125 mg/dL suggests IMPAIRED HOMEOSTASIS per A.D.A. criteria. Hemoglobin (Bld) [Mass/Vol] 14.4 g/dL 13.0-16.5 [facility] Monocytes/100 WBC (Bld) 11.0 % 0-10 [facility] Neutrophils (Bld) [#/Vol] 4.0 10*3/uL 2.0-7.7 [facility] Neutrophils/100 WBC (Bld) 68.6 % 47-70 [facility] Potassium [Moles/Vol] 4.8 mmol/L 3.5-5.1 [facility] Sodium [Moles/Vol] 137 mmol/L 136-145 [facility] WBC (Bld) [#/Vol] 5.8 10*3/uL 4.4-11.0 [facility] Determination of erythrocyte mean corpuscular volume (MCV)Ordered By: Chela Falk on 10-06-2023 MCV (RBC) [Entitic vol] 95.4 fL 80-94 [facility] Erythrocyte distribution wid th ratioOrdered By: Chela Falk on 10-06-2023 Erythrocyte distribution width (RBC) [Ratio] 13.2 % 11.6-14.6 [facility] Erythrocyte distribution wid th standard deviationOrdered By: Chela Falk on 10-06-2023 Erythrocyte distribution width (RBC) [Entitic vol] 46.6 fL 35.1-43.9 [facility] Hematocrit Auto (Bld) [Volum e fraction]Ordered By: Chela Falk on 10-06-2023 Hematocrit (Bld) [Volume fraction] 43.1 % 40-54 [facility] Immature granulocytes/100 WB C Auto (Bld)Ordered By: Chela Falk on 10-06-2023 Immature granulocytes/100 WBC (Bld) 0.200 % 0.0-0.9 [facility] Comment on above: IG% - Immature Granu locytes (promyelocytes, myelocytes and metamyelocytes) > 1% indicates that a LEFT SHIFT is Present. Laboratory - Chemistry and C hemistry - challengeOrdered By: Chela Falk on 10-06-2023 CO2 [Moles/Vol] 29.0 mmol/L 21.0-32.0 [facility] Natriuretic peptide B (Bld) [Mass/Vol] 33.4 pg/mL 0-100 [facility] Urea nitrogen/Creatinine [Mass ratio] 16.1 mg/mg 10-20 [facility] Laboratory - Hematology and Cell countsOrdered By: Chela Falk on 10-06-2023 MCH (RBC) [Entitic mass] 31.9 pg 27.0-32.0 [facility] MCHC (RBC) [Mass/Vol] 33.4 g/dL 32-36 [facility] Nucleated RBC/100 WBC (Bld) [Ratio] 0 % 0-5 [facility] Platelets (Bld) [#/Vol] 293 10*3/uL 150-450 [facility] No Panel InformationOrdered By: Chela Falk on 10-06-2023 Estimated GFR (MDRD) Amer 85 mL/min >60 [facility] Comment on above: GFR Calc Estimated GFR (MDRD) Non-Af Amer 70 mL/min >60 [facility] Comment on above: Non- GFR Calc Free Triiodothyronine (T3) pg/dL 1.7 pg/mL 2.18-3.98 [facility] Vitamin D 25-Hydroxy 29.1 ng/mL [facility] Comment on above: Vitamin D 25(OH) Sta tus Range Deficiency <20 ng/mL (50nmol/L) Insufficiency 20 - 30 ng/mL (50 - 75 nmol/L) Sufficiency 30 - 100 ng/mL (75 - 250 nmol/L) Toxicity >100 ng/mL (>250 nmol/L) Platelet mean volume Piotr-Ec ker (Bld) [Entitic vol]Ordered By: Chela Falk on 10-06-2023 Platelet mean volume (Bld) [Entitic vol] 10.0 fL 6.2-12.0 [facility] RBC Auto (Bld) [#/Vol]Ordere d By: Chela Falk on 10-06-2023 RBC (Bld) [#/Vol] 4.52 10*6/uL 4.6-6.2 [facility] Serum or plasma calcium linda urement (mass/volume)Ordered By: Chela Falk on 10-06-2023 Calcium [Mass/Vol] 9.4 mg/dL 8.5-10.1 [facility] Serum or plasma creatinine m easurement (mass/volume)Ordered By: Chela Falk on 10-06-2023 Creatinine [Mass/Vol] 1.12 mg/dL 0.70-1.30 [facility] Comment on above: The validity of the calculated GFR & GFRAA in patients over 70 years has not been determined. Clinical correlation is essential. Serum or plasma thyroid stim ulating hormone (TSH) measurement (units/volume)Ordered By: Chela Falk on 10-06-2023 TSH Qn 1.50 uIU/mL 0.358-3.74 [facility] Serum or plasma urea nitroge n measurement (mass/volume)Ordered By: Chela Falk on 10-06-2023 Urea nitrogen [Mass/Vol] 18 mg/dL 7-18 [facility] Thin prep Papanicolaou smear with manual screeningOrdered By: Chela Falk on 10-06-2023 Thin prep Papanicolaou smear with manual screening 4 5-15 [facility] Thin prep Papanicolaou smear with manual screening 0.67 ng/dL 0.76-1.46 [facility] Basophil percentageOrdered B y: Eduin Watts on 08-17-2023 Chloride [Moles/Vol] 105 mmol/L 98-107 [facility] Cholesterol [Mass/Vol] 195 mg/dL <200 [facility] Comment on above: <200 mg/dL Desirable 200-240 mg/dL Borderline >240 mg/dL High Risk Glucose [Mass/Vol] 83 mg/dL 74-106 [facility] Potassium [Moles/Vol] 4.4 mmol/L 3.5-5.1 [facility] Sodium [Moles/Vol] 137 mmol/L 136-145 [facility] Triglyceride [Mass/Vol] 59 mg/dL <199 [facility] Comment on above: The drugs N-Acetylcy steine and Metamizole may falsely depress this assay.Serum Triglycerides Reference Interval Normal <150 mg/dL Borderline high 150 - 199 mg/dL High 200 - 499 mg/dL Very High > or = 500 mg/dL Laboratory - Chemistry and C hemistry - challengeOrdered By: Eduin Watts on 08-17-2023 CO2 [Moles/Vol] 27.0 mmol/L 21.0-32.0 [facility] Urea nitrogen/Creatinine [Mass ratio] 14.2 mg/mg 10-20 [facility] No Panel InformationOrdered By: Eduin Watts on 08-17-2023 Estimated GFR (MDRD) Amer 78 mL/min >60 [facility] Comment on above: GFR Calc Estimated GFR (MDRD) Non-Af Amer 65 mL/min >60 [facility] Comment on above: Non- GFR Calc Serum or plasma calcium linda urement (mass/volume)Ordered By: Eduin Watts on 08-17-2023 Calcium [Mass/Vol] 9.3 mg/dL 8.5-10.1 [facility] Serum or plasma cholesterol in HDL measurement (mass/volume)Ordered By: Eduin Watts on 08-17-2023 Cholesterol in HDL [Mass/Vol] 69 mg/dL >40 [facility] Comment on above: The drugs N-Acetylcy steine and Metamizole may falsely depress this assay. Reference Range HDL <40 mg/dL Low HDL Cholesterol HDL >or= 60 mg/dL High HDL Cholesterol Serum or plasma cholesterol in VLDL measurement (mass/volume)Ordered By: Eduin Watts on 08-17-2023 Cholesterol in VLDL [Mass/Vol] 12 mg/dL 5-40 [facility] Serum or plasma creatinine m easurement (mass/volume)Ordered By: Eduin Watts on 08-17-2023 Creatinine [Mass/Vol] 1.20 mg/dL 0.70-1.30 [facility] Comment on above: The validity of the calculated GFR & GFRAA in patients over 70 years has not been determined. Clinical correlation is essential. Serum or plasma low density lipoprotein (LDL) cholesterol measurement (mass/volume)Ordered By: Eduin Watts on 08-17-2023 Cholesterol in LDL [Mass/Vol] 114 mg/dL 0-130 [facility] Serum or plasma urea nitroge n measurement (mass/volume)Ordered By: Eduin Watts on 08-17-2023 Urea nitrogen [Mass/Vol] 17 mg/dL 7-18 [facility] Thin prep Papanicolaou smear with manual screeningOrdered By: Eduin Watts on 08-17-2023 Thin prep Papanicolaou smear with manual screening 5 5-15 [facility] Absolute lymphocyte countOrd ered By: Ramy Calvo on 05-05-2023 Lymphocytes Auto (Unsp spec) [#/Vol] 1.20 10*3/uL 0.83-4.51 [facility] Basophil percentageOrdered B y: Ramy Calvo on 05-05-2023 Basophils/100 WBC (Bld) 1.0 % 0-1 [facility] Chloride [Moles/Vol] 109 mmol/L 98-107 [facility] Eosinophils/100 WBC (Bld) 3.1 % 0-5 [facility] Glucose [Mass/Vol] 79 mg/dL 74-106 [facility] Neutrophils (Bld) [#/Vol] 2.9 10*3/uL 2.0-7.7 [facility] Neutrophils/100 WBC (Bld) 58.9 % 47-70 [facility] Potassium [Moles/Vol] 4.9 mmol/L 3.5-5.1 [facility] Sodium [Moles/Vol] 140 mmol/L 136-145 [facility] WBC (Bld) [#/Vol] 4.9 10*3/uL 4.4-11.0 [facility] Blood erythrocytes count (nu mber/volume)Ordered By: Ramy Calvo on 05-05-2023 RBC (Bld) [#/Vol] 4.05 10*6/uL 4.6-6.2 [facility] Blood hemoglobin measurement (mass/volume)Ordered By: Ramy Calvo on 05-05-2023 Hemoglobin (Bld) [Mass/Vol] 13.0 g/dL 13.0-16.5 [facility] Blood lymphocytes/100 leukoc ytesOrdered By: Ramy Calvo on 05-05-2023 Lymphocytes/100 WBC (Bld) 24.5 % 19-41 [facility] Blood monocytes/100 leukocyt esOrdered By: Ramy Calvo on 05-05-2023 Monocytes/100 WBC (Bld) 12.3 % 0-10 [facility] Blood platelet mean volumeOr dered By: Ramy Calvo on 05-05-2023 Platelet mean volume (Bld) [Entitic vol] 9.7 fL 6.2-12.0 [facility] Determination of erythrocyte mean corpuscular volume (MCV)Ordered By: Ramy Calvo on 05-05-2023 MCV (RBC) [Entitic vol] 99.0 fL 80-94 [facility] Hematocrit Auto (Bld) [Volum e fraction]Ordered By: Ramy Calvo on 05-05-2023 Hematocrit (Bld) [Volume fraction] 40.1 % 40-54 [facility] Laboratory - Chemistry and C hemistry - challengeOrdered By: Ramy Calvo on 05-05-2023 CO2 [Moles/Vol] 27.0 mmol/L 21.0-32.0 [facility] Urea nitrogen/Creatinine [Mass ratio] 20.8 mg/mg 10-20 [facility] Laboratory - CoagulationOrde red By: Ramy Calvo on 05-05-2023 aPTT Coag (Bld) [Time] 48.6 s 24.1-36.2 [facility] Laboratory - Hematology and Cell countsOrdered By: Ramy Calvo on 05-05-2023 Erythrocyte distribution width (RBC) [Entitic vol] 49.1 fL 35.1-43.9 [facility] Erythrocyte distribution width (RBC) [Ratio] 13.6 % 11.6-14.6 [facility] Immature granulocytes/100 WBC (Bld) 0.200 % 0.0-0.9 [facility] Comment on above: IG% - Immature Granu locytes (promyelocytes, myelocytes and metamyelocytes) > 1% indicates that a LEFT SHIFT is Present. MCH (RBC) [Entitic mass] 32.1 pg 27.0-32.0 [facility] Nucleated RBC/100 WBC (Bld) [Ratio] 0 % 0-5 [facility] MCHC Auto (RBC) [Mass/Vol]Or dered By: Ramy Calvo on 05-05-2023 MCHC (RBC) [Mass/Vol] 32.4 g/dL 32-36 [facility] No Panel InformationOrdered By: Ramy Calvo on 05-05-2023 Estimated Creatinine Clearance Calc 62.19 ml/min [facility] Estimated GFR (MDRD) Amer 78 mL/min >60 [facility] Comment on above: GFR Calc Estimated GFR (MDRD) Non-Af Amer 65 mL/min >60 [facility] Comment on above: Non- GFR Calc Platelets bldOrdered By: Nghia Calvo on 05-05-2023 Platelets (Bld) [#/Vol] 212 10*3/uL 150-450 [facility] Serum or plasma calcium linda urement (mass/volume)Ordered By: Raym Calvo on 05-05-2023 Calcium [Mass/Vol] 8.9 mg/dL 8.5-10.1 [facility] Serum or plasma creatinine m easurement (mass/volume)Ordered By: Ramy Calvo on 05-05-2023 Creatinine [Mass/Vol] 1.20 mg/dL 0.70-1.30 [facility] Comment on above: The validity of the calculated GFR & GFRAA in patients over 70 years has not been determined. Clinical correlation is essential. Serum or plasma urea nitroge n measurement (mass/volume)Ordered By: Ramy Calvo on 05-05-2023 Urea nitrogen [Mass/Vol] 25 mg/dL -18 [facility] Thin prep Papanicolaou smear with manual screeningOrdered By: Ramy Calvo on 05-05-2023 Thin prep Papanicolaou smear with manual screening 4 5-15 [facility] INR in Blood by Coagulation assayOrdered By: Ramy Calvo on 05-04-2023 INR Coag (Bld) [Relative time] 1.3 {INR} [facility] Laboratory - CoagulationOrde red By: Ramy Calvo on 05-04-2023 PT Coag (PPP) [Time] 16.2 s 11.7-14.9 [facility] No Panel InformationOrdered By: Ramy Calvo on 05-04-2023 Troponin I High Sensitivity 8 pg/mL 3.0-78.0 [facility] Comment on above: Please Note: New [place] t Units and Gender Specific Reference Ranges. For more information see Policy Stat Procedure [place] High Sensitivity Troponin (TNIH) and attachments. Basophil percentageOrdered B y: Eduin Watts on 02-02-2023 Chloride [Moles/Vol] 108 mmol/L 98-107 [facility] Cholesterol [Mass/Vol] 155 mg/dL <200 [facility] Comment on above: <200 mg/dL Desirable 200-240 mg/dL Borderline >240 mg/dL High Risk Glucose [Mass/Vol] 89 mg/dL 74-106 [facility] Potassium [Moles/Vol] 4.4 mmol/L 3.5-5.1 [facility] Sodium [Moles/Vol] 138 mmol/L 136-145 [facility] Triglyceride [Mass/Vol] 47 mg/dL <199 [facility] Comment on above: The drugs N-Acetylcy steine and Metamizole may falsely depress this assay.Serum Triglycerides Reference Interval Normal <150 mg/dL Borderline high 150 - 199 mg/dL High 200 - 499 mg/dL Very High > or = 500 mg/dL Laboratory - Chemistry and C hemistry - challengeOrdered By: Eduin Watts on 02-02-2023 CO2 [Moles/Vol] 22.0 mmol/L 21.0-32.0 [facility] Urea nitrogen/Creatinine [Mass ratio] 21.6 mg/mg 10-20 [facility] No Panel InformationOrdered By: Eduin Watts on 02-02-2023 Estimated GFR (MDRD) Amer 100 mL/min >60 [facility] Comment on above: GFR Calc Estimated GFR (MDRD) Non-Af Amer 83 mL/min >60 [facility] [place] Comment on above: Non- GFR Calc Serum or plasma calcium linda urement (mass/volume)Ordered By: Eduin Watts on 02-02-2023 Calcium [Mass/Vol] 8.7 mg/dL 8.5-10.1 [facility] Serum or plasma cholesterol in HDL measurement (mass/volume)Ordered By: Eduin Watts on 02-02-2023 Cholesterol in HDL [Mass/Vol] 56 mg/dL >40 [facility] [place] [facility] Comment on above: The drugs N-Acetylcy steine and Metamizole may falsely depress this assay. Reference Range HDL <40 mg/dL Low HDL Cholesterol HDL >or= 60 mg/dL High HDL Cholesterol Serum or plasma cholesterol in VLDL measurement (mass/volume)Ordered By: Eduin Watts on 02-02-2023 Cholesterol in VLDL [Mass/Vol] 9 mg/dL 5-40 [facility] Serum or plasma creatinine m easurement (mass/volume)Ordered By: Eduin Watts on 02-02-2023 Creatinine [Mass/Vol] 0.97 mg/dL 0.70-1.30 [facility] Comment on above: The validity of the calculated GFR & GFRAA in patients over 70 years has not been determined. Clinical correlation is essential. Serum or plasma low density lipoprotein (LDL) cholesterol measurement (mass/volume)Ordered By: Eduin Watts on 02-02-2023 Cholesterol in LDL [Mass/Vol] 90 mg/dL 0-130 [facility] Serum or plasma urea nitroge n measurement (mass/volume)Ordered By: Eduin Watts on 02-02-2023 Urea nitrogen [Mass/Vol] 21 mg/dL 7-18 [facility] Thin prep Papanicolaou smear with manual screeningOrdered By: Eduin Watts on 02-02-2023 Thin prep Papanicolaou smear with manual screening 8 5-15 [facility] Absolute lymphocyte countOrd ered By: Dr. Watts on 09-22-2022 Lymphocytes Auto (Unsp spec) [#/Vol] 0.86 10*3/uL 0.83-4.51 [facility] [place] [facility] Basophil percentageOrdered B y: Dr. Watts on 09-22-2022 Basophils/100 WBC (Bld) 1.2 % 0-1 [facility] Chloride [Moles/Vol] 105 mmol/L 98-107 [facility] Eosinophils/100 WBC (Bld) 1.8 % 0-5 [facility] Glucose [Mass/Vol] 100 mg/dL 74-106 [facility] Comment on above: Fasting Glucose resu lt from 100 to 125 mg/dL suggests IMPAIRED HOMEOSTASIS per A.D.A. criteria. Neutrophils (Bld) [#/Vol] 4.1 10*3/uL 2.0-7.7 [facility] [place] [facility] Neutrophils/100 WBC (Bld) 71.0 % 47-70 [facility] Potassium [Moles/Vol] 4.4 mmol/L 3.5-5.1 [facility] Sodium [Moles/Vol] 139 mmol/L 136-145 [facility] WBC (Bld) [#/Vol] 5.7 10*3/uL 4.4-11.0 [facility] Blood erythrocytes count (nu mber/volume)Ordered By: Dr. Watts on 09-22-2022 RBC (Bld) [#/Vol] 4.94 10*6/uL 4.6-6.2 [facility] Blood hemoglobin measurement (mass/volume)Ordered By: Dr. Watts on 09-22-2022 Hemoglobin (Bld) [Mass/Vol] 15.5 g/dL 13.0-16.5 [facility] Blood lymphocytes/100 leukoc ytesOrdered By: Dr. Watts on 09-22-2022 Lymphocytes/100 WBC (Bld) 15.1 % 19-41 [facility] [place] [facility] Blood monocytes/100 leukocyt esOrdered By: Dr. Watts on 09-22-2022 Monocytes/100 WBC (Bld) 10.5 % 0-10 [facility] Blood platelet mean volumeOr dered By: Dr. Watts on 09-22-2022 Platelet mean volume (Bld) [Entitic vol] 10.1 fL 6.2-12.0 [facility] Determination of erythrocyte mean corpuscular volume (MCV)Ordered By: Dr. Watts on 09-22-2022 MCV (RBC) [Entitic vol] 95.7 fL 80-94 [facility] Hematocrit Auto (Bld) [Volum e fraction]Ordered By: Dr. Watts on 09-22-2022 Hematocrit (Bld) [Volume fraction] 47.3 % 40-54 [facility] [place] [facility] Laboratory - Chemistry and C hemistry - challengeOrdered By: Dr. Watts on 09-22-2022 CO2 [Moles/Vol] 30.0 mmol/L 21.0-32.0 [facility] [place] [facility] Natriuretic peptide B (Bld) [Mass/Vol] 18.2 pg/mL 0-100 [facility] [place] [facility] Urea nitrogen/Creatinine [Mass ratio] 16.3 mg/mg 10-20 [facility] [place] [facility] Laboratory - Hematology and Cell countsOrdered By: Dr. Watts on 09-22-2022 Erythrocyte distribution width (RBC) [Entitic vol] 47.5 fL 35.1-43.9 [facility] [place] [facility] Erythrocyte distribution width (RBC) [Ratio] 13.5 % 11.6-14.6 [facility] [place] [facility] Immature granulocytes/100 WBC (Bld) 0.400 % 0.0-0.9 [facility] [place] [facility] Comment on above: IG% - Immature Granu locytes (promyelocytes, myelocytes and metamyelocytes) > 1% indicates that a LEFT SHIFT is Present. MCH (RBC) [Entitic mass] 31.4 pg 27.0-32.0 [facility] [place] [facility] Nucleated RBC/100 WBC (Bld) [Ratio] 0 % 0-5 [facility] [place] [facility] MCHC Auto (RBC) [Mass/Vol]Or dered By: Dr. Watts on 09-22-2022 MCHC (RBC) [Mass/Vol] 32.8 g/dL 32-36 [facility] No Panel InformationOrdered By: Dr. Watts on 09-22-2022 Estimated GFR (MDRD) Amer 76 mL/min >60 [facility] [place] [facility] Comment on above: GFR Calc Estimated GFR (MDRD) Non-Af Amer 63 mL/min >60 [facility] [place] [facility] Comment on above: Non- GFR Calc Troponin I High Sensitivity 7 pg/mL 3.0-78.0 [facility] [place] [facility] Comment on above: Please Note: New [place] t Units and Gender Specific Reference Ranges. For more information see Policy Stat Procedure [place] High Sensitivity Troponin (TNIH) and attachments. Platelets bldOrdered By: Dr. Watts on 09-22-2022 Platelets (Bld) [#/Vol] 284 10*3/uL 150-450 [facility] [place] [facility] Serum or plasma calcium linda urement (mass/volume)Ordered By: Dr. Watts on 09-22-2022 Calcium [Mass/Vol] 9.3 mg/dL 8.5-10.1 [facility] Serum or plasma creatinine m easurement (mass/volume)Ordered By: Dr. Watts on 09-22-2022 Creatinine [Mass/Vol] 1.23 mg/dL 0.70-1.30 [facility] Comment on above: The validity of the calculated GFR & GFRAA in patients over 70 years has not been determined. Clinical correlation is essential. Serum or plasma urea nitroge n measurement (mass/volume)Ordered By: Dr. Watts on 09-22-2022 Urea nitrogen [Mass/Vol] 20 mg/dL 7-18 [facility] [place] [facility] Thin prep Papanicolaou smear with manual screeningOrdered By: Dr. Watts on 09-22-2022 Thin prep Papanicolaou smear with manual screening 4 5-15 [facility] [place] [facility] Absolute lymphocyte counton 07-13-2022 Lymphocytes Auto (Unsp spec) [#/Vol] 0.94 10*3/uL 0.83-4.51 [facility] Work Phone: Basophil percentageon 2021 Basophil percentage 5-10 SEEN /hpf 0-5 [facility] Work Phone: Basophils/100 WBC (Bld) 0.8 % 0-1 [facility] Work Phone: Eosinophils/100 WBC (Bld) 2.2 % 0-5 [facility] [place] [facility] Work Phone: Neutrophils (Bld) [#/Vol] 3.4 10*3/uL 2.0-7.7 [facility] [place] [facility] Work Phone: Neutrophils/100 WBC (Bld) 67.6 % 47-70 [facility] [place] [facility] Work Phone: WBC (Bld) [#/Vol] 5.0 10*3/uL 4.4-11.0 [facility] Work Phone: Chloride [Moles/Vol] 107 mmol/L 98-107 [facility] Work Phone: Glucose [Mass/Vol] 93 mg/dL 74-106 [facility] Work Phone: Potassium [Moles/Vol] 4.2 mmol/L 3.5-5.1 [facility] Work Phone: Sodium [Moles/Vol] 137 mmol/L 136-145 [facility] Work Phone: Bilirubin Test strip Ql (U)o n 07-13-2022 Bilirubin Ql (U) Negative Negative [facility] [place] [facility] Work Phone: Blood erythrocytes count (nu mber/volume)on 07-13-2022 RBC (Bld) [#/Vol] 4.91 10*6/uL 4.6-6.2 [facility] Work Phone: Blood hemoglobin measurement (mass/volume)on 07-13-2022 Hemoglobin (Bld) [Mass/Vol] 15.3 g/dL 13.0-16.5 [facility] [place] [facility] Work Phone: Blood lymphocytes/100 leukoc yteson 07-13-2022 Lymphocytes/100 WBC (Bld) 18.9 % 19-41 [facility] [place] [facility] Work Phone: Blood monocytes/100 leukocyt eson 07-13-2022 Monocytes/100 WBC (Bld) 10.3 % 0-10 [facility] Work Phone: Blood platelet mean volumeon 07-13-2022 Platelet mean volume (Bld) [Entitic vol] 10.3 fL 6.2-12.0 [facility] [place] [facility] Work Phone: Determination of erythrocyte mean corpuscular volume (MCV)on 07-13-2022 MCV (RBC) [Entitic vol] 93.3 fL 80-94 [facility] Work Phone: Hematocrit Auto (Bld) [Volum e fraction]on 07-13-2022 Hematocrit (Bld) [Volume fraction] 45.8 % 40-54 [facility] [place] [facility] Work Phone: Ketones Test strip Ql (U)on 07-13-2022 Ketones Ql (U) Negative Negative [facility] [place] [facility] Work Phone: Laboratory - Chemistry and C hemistry - challengeon 07-13-2022 CO2 [Moles/Vol] 25.0 mmol/L 21.0-32.0 [facility] Work Phone: Urea nitrogen/Creatinine [Mass ratio] 16.4 mg/mg 10-20 [facility] [place] [facility] Work Phone: [phone] Laboratory - Hematology and Cell countson 07-13-2022 Erythrocyte distribution width (RBC) [Entitic vol] 44.1 fL 35.1-43.9 [facility] [place] [facility] Work Phone: [phone] Erythrocyte distribution width (RBC) [Ratio] 12.9 % 11.6-14.6 [facility] [place] [facility] Work Phone: [phone] Immature granulocytes/100 WBC (Bld) 0.200 % 0.0-0.9 [facility] [place] [facility] Work Phone: [phone] Comment on above: IG% - Immature Granu locytes (promyelocytes, myelocytes and metamyelocytes) > 1% indicates that a LEFT SHIFT is Present. MCH (RBC) [Entitic mass] 31.2 pg 27.0-32.0 [facility] [place] [facility] Work Phone: [phone] Nucleated RBC/100 WBC (Bld) [Ratio] 0 % 0-5 [facility] [place] [facility] Work Phone: [phone] MCHC Auto (RBC) [Mass/Vol]on 07-13-2022 MCHC (RBC) [Mass/Vol] 33.4 g/dL 32-36 [facility] Work Phone: [phone] Mucus LM Ql (Urine sed)on Mucus Ql (Urine sed) 0 SEEN /hpf [facility] Work Phone: [phone] Nitrite Test strip Ql (U)on 07-13-2022 Nitrite Ql (U) Positive Negative [facility] Work Phone: [phone] No Panel Informationon 07-13 Troponin I High Sensitivity 7 pg/mL 3.0-78.0 [facility] [place] [facility] Work Phone: [phone] Comment on above: Please Note: New [place] t Units and Gender Specific Reference Ranges. For more information see Policy Stat Procedure [place] High Sensitivity Troponin (TNIH) and attachments. D-Dimer Quantitative (PE/DVT) 2.42 FEU/ug/m 0.27-0.49 [facility] [place] [facility] Work Phone: [phone] Comment on above: D-Dimer ELEVATED (>0 .49): Additional studies and clinicalassessments are indicated to conclude diagnosis of:Deep Vein Thrombosis (DVT) or Pulmonary Embolism (PE)CRITICAL VALUE VERIFIED. CALLED TO SANDY HERRING07/13/22 1856 Logan Suero.RESULTS READ BACK BY SAME . Estimated Creatinine Clearance Calc 65.18 ml/min [facility] [place] [facility] Work Phone: Estimated GFR (MDRD) Amer 82 mL/min >60 [facility] [place] [facility] Work Phone: [phone] Comment on above: GFR Calc Estimated GFR (MDRD) Non-Af Amer 68 mL/min >60 [facility] [place] [facility] Work Phone: Comment on above: Non- GFR Calc Platelets bldon 07-13-2022 Platelets (Bld) [#/Vol] 268 10*3/uL 150-450 [facility] [place] [facility] Work Phone: Protein Test strip Ql (U)on 07-13-2022 Protein Ql (U) 15 mg/dl Negative [facility] [place] [facility] Work Phone: [phone] Serum or plasma calcium linda urement (mass/volume)on 07-13-2022 Calcium [Mass/Vol] 9.6 mg/dL 8.5-10.1 [facility] Work Phone: Serum or plasma creatinine m easurement (mass/volume)on 07-13-2022 Creatinine [Mass/Vol] 1.16 mg/dL 0.70-1.30 [facility] Work Phone: Comment on above: The validity of the calculated GFR & GFRAA in patients over 70 years has not been determined. Clinical correlation is essential. Serum or plasma urea nitroge n measurement (mass/volume)on 07-13-2022 Urea nitrogen [Mass/Vol] 19 mg/dL 7-18 [facility] [place] [facility] Work Phone: [phone] Squamous epithelial cells de tection in urine sediment by light microscopyon 07-13-2022 Epithelial cells.squamous LM Ql (Urine sed) 0 SEEN /hpf 0-5 [facility] Work Phone: Thin prep Papanicolaou smear with manual screeningon 07-13-2022 Thin prep Papanicolaou smear with manual screening 5 5-15 [facility] [place] [facility] Work Phone: Urine blood detectionon 06-19 RBC Ql (U) 10 /ul Negative [facility] [place] [facility] Work Phone: [phone] RBC Ql (U) 0 SEEN /hpf 0-5 [facility] [place] [facility] Work Phone: [phone] Urine clarityon 07-13-2022 Clarity (U) Clear Clear [facility] [place] [facility] Work Phone: [phone] Urine color determinationon 07-13-2022 Color (U) Yellow Yellow [facility] [place] [facility] Work Phone: [phone] Urine glucose detectionon Glucose Ql (U) Normal mg/dl Normal [facility] [place] [facility] Work Phone: [phone] Urine leukocyte esterase det ection by dipstickon 07-13-2022 Leukocyte esterase Test strip Ql (U) 100 /ul Negative [facility] [place] [facility] Work Phone: Urine pHon 07-13-2022 pH (U) 7.0 [pH] 5.0 - 8.0 [facility] [place] [facility] Work Phone: Urine sediment bacteria coun t by microscopy (number/high power field)on 07-13-2022 Bacteria LM.HPF (Urine sed) [#/Area] 0 /[HPF] None Seen [facility] [place] [facility] Work Phone: Urine specific gravity measu rementon 07-13-2022 Specific gravity (U) [Rel density] 1.010 1.002-1.030 [facility] [place] [facility] Work Phone: Urobilinogen Auto test strip Ql (U)on 07-13-2022 Urobilinogen Ql (U) Normal mg/dl Normal [facility] Work Phone: Absolute lymphocyte counton 04-18-2022 Lymphocytes Auto (Unsp spec) [#/Vol] 0.93 10*3/uL 0.83-4.51 [facility] [place] [facility] Work Phone: Basophil percentageon 2021 Basophils/100 WBC (Bld) 0.9 % 0-1 [facility] Work Phone: Bilirubin [Mass/Vol] 0.50 mg/dL 0.20-1.00 [facility] Work Phone: Comment on above: For patients on eltr ombopag therapy, use of Dimension [place] TBIL is not recommended. Chloride [Moles/Vol] 111 mmol/L 98-107 [facility] Work Phone: Eosinophils/100 WBC (Bld) 2.4 % 0-5 [facility] [place] [facility] Work Phone: Glucose [Mass/Vol] 84 mg/dL 74-106 [facility] Work Phone: Neutrophils (Bld) [#/Vol] 3.7 10*3/uL 2.0-7.7 [facility] [place] [facility] Work Phone: Neutrophils/100 WBC (Bld) 69.1 % 47-70 [facility] Work Phone: Potassium [Moles/Vol] 4.4 mmol/L 3.5-5.1 [facility] Work Phone: Protein [Mass/Vol] 7.2 g/dL 6.4-8.2 [facility] Work Phone: Sodium [Moles/Vol] 140 mmol/L 136-145 [facility] Work Phone: Testosterone [Mass/Vol] 34.12 ng/dL [facility] [place] [facility] Work Phone: Comment on above: CENTRAL 90% REFERENC E RANGES MALE AGE <50 197.44 - 669.58 ng/dL MALE AGE > or = 50 187.72 - 684.19 ng/dL FEMALE AGE <50 8.38 - 35.01 ng/dL FEMALE AGE > or = 50 <7.00 - 35.92 ng/dL Effective as of 04/13/21 WBC (Bld) [#/Vol] 5.4 10*3/uL 4.4-11.0 [facility] Work Phone: Blood erythrocytes count (nu mber/volume)on 04-18-2022 RBC (Bld) [#/Vol] 4.46 10*6/uL 4.6-6.2 [facility]: [phone] Blood hemoglobin measurement (mass/volume)on 04-18-2022 Hemoglobin (Bld) [Mass/Vol] 14.2 g/dL 13.0-16.5 [facility] [place] [facility] Work Phone: [phone] Blood lymphocytes/100 leukoc yteson 04-18-2022 Lymphocytes/100 WBC (Bld) 17.2 % 19-41 [facility] Work Phone: [phone] Blood monocytes/100 leukocyt eson 04-18-2022 Monocytes/100 WBC (Bld) 10.2 % 0-10 [facility] Work Phone: [phone] Blood platelet mean volumeon 04-18-2022 Platelet mean volume (Bld) [Entitic vol] 10.1 fL 6.2-12.0 [facility] [place] [facility] Work Phone: [phone] Determination of erythrocyte mean corpuscular volume (MCV)on 04-18-2022 MCV (RBC) [Entitic vol] 98.0 fL 80-94 [facility] Work Phone: [phone] Hematocrit Auto (Bld) [Volum e fraction]on 04-18-2022 Hematocrit (Bld) [Volume fraction] 43.7 % 40-54 [facility] [place] [facility] Work Phone: [phone] Laboratory - Chemistry and C hemistry - challengeon 04-18-2022 ALP [Catalytic activity/Vol] 107 U/L 45-117 [facility] [place] [facility] Work Phone: ALT [Catalytic activity/Vol] 23 U/L 16-61 [facility] [place] [facility] Work Phone: [phone] CO2 [Moles/Vol] 24.0 mmol/L 21.0-32.0 [facility] [place] [facility] Work Phone: [phone] Globulin (S) [Mass/Vol] 3.3 g/dL 2.2-4.2 [facility] Work Phone: [phone] Urea nitrogen/Creatinine [Mass ratio] 19.1 mg/mg 10-20 [facility] [place] [facility] Work Phone: [phone] Laboratory - Hematology and Cell countson 04-18-2022 Erythrocyte distribution width (RBC) [Entitic vol] 51.2 fL 35.1-43.9 [facility] [place] [facility] Work Phone: [phone] Erythrocyte distribution width (RBC) [Ratio] 14.1 % 11.6-14.6 [facility] Work Phone: [phone] Immature granulocytes/100 WBC (Bld) 0.200 % 0.0-0.9 [facility] [place] [facility] Work Phone: [phone] Comment on above: IG% - Immature Granu locytes (promyelocytes, myelocytes and metamyelocytes) > 1% indicates that a LEFT SHIFT is Present. MCH (RBC) [Entitic mass] 31.8 pg 27.0-32.0 [facility] [place] [facility] Work Phone: [phone] Nucleated RBC/100 WBC (Bld) [Ratio] 0 % 0-5 [facility] [place] [facility] Work Phone: [phone] MCHC Auto (RBC) [Mass/Vol]on 04-18-2022 MCHC (RBC) [Mass/Vol] 32.5 g/dL 32-36 [facility] Work Phone: No Panel Informationon 04-18 Estimated GFR (MDRD) Amer 98 mL/min >60 [facility] [place] [facility] Work Phone: Comment on above: GFR Calc Estimated GFR (MDRD) Non-Af Amer 81 mL/min >60 [facility] [place] [facility] Work Phone: [phone] Comment on above: Non- GFR Calc Thyroid Stimulating Hormone (TSH) 2.67 uIU/mL 0.358-3.74 [facility] [place] [facility] Work Phone: [phone] Platelets bldon 04-18-2022 Platelets (Bld) [#/Vol] 265 10*3/uL 150-450 [facility] [place] [facility] Work Phone: [phone] Serum or plasma albumin linda urement (mass/volume)on 04-18-2022 Albumin [Mass/Vol] 3.9 g/dL 3.2-5.0 [facility] Work Phone: Serum or plasma albumin/glob ulin mass ratioon 04-18-2022 Albumin/Globulin [Mass ratio] 1.2 {ratio} 0.9-2.4 [facility] [place] [facility] Work Phone: Serum or plasma calcium linda urement (mass/volume)on 04-18-2022 Calcium [Mass/Vol] 9.2 mg/dL 8.5-10.1 [facility] Work Phone: [phone] Serum or plasma creatinine m easurement (mass/volume)on 04-18-2022 Creatinine [Mass/Vol] 1.00 mg/dL 0.70-1.30 [facility] Work Phone: Comment on above: The validity of the calculated GFR & GFRAA in patients over 70 years has not been determined. Clinical correlation is essential. Serum or plasma urea nitroge n measurement (mass/volume)on 04-18-2022 Urea nitrogen [Mass/Vol] 19 mg/dL 7-18 [facility] [place] [facility] Work Phone: [phone] Thin prep Papanicolaou smear with manual screeningon 04-18-2022 Thin prep Papanicolaou smear with manual screening 20 U/L 15-37 [facility] [place] [facility] Work Phone: Thin prep Papanicolaou smear with manual screening 5 5-15 [facility] [place] [facility] Work Phone: Basophil percentageon 2021 Bilirubin [Mass/Vol] 0.40 mg/dL 0.20-1.00 [facility] Work Phone: Comment on above: For patients on eltr ombopag therapy, use of Dimension [place] TBIL is not recommended. Chloride [Moles/Vol] 105 mmol/L 98-107 [facility] Work Phone: [phone] Cholesterol [Mass/Vol] 159 mg/dL <200 [facility] Work Phone: [phone] Comment on above: <200 mg/dL Desirable 200-240 mg/dL Borderline >240 mg/dL High Risk Glucose [Mass/Vol] 90 mg/dL 74-106 [facility] Work Phone: Potassium [Moles/Vol] 4.1 mmol/L 3.5-5.1 [facility] Work Phone: [phone] Protein [Mass/Vol] 7.2 g/dL 6.4-8.2 [facility] Work Phone: [phone] Sodium [Moles/Vol] 139 mmol/L 136-145 [facility] Work Phone: [phone] Triglyceride [Mass/Vol] 66 mg/dL <199 [facility] Work Phone: [phone] Comment on above: The drugs N-Acetylcy steine and Metamizole may falsely depress this assay.Serum Triglycerides Reference Interval Normal <150 mg/dL Borderline high 150 - 199 mg/dL High 200 - 499 mg/dL Very High > or = 500 mg/dL Laboratory - Chemistry and C hemistry - challengeon 01-27-2022 ALP [Catalytic activity/Vol] 116 U/L 45-117 [facility] [place] [facility] Work Phone: ALT [Catalytic activity/Vol] 42 U/L 16-61 [facility] [place] [facility] Work Phone: CO2 [Moles/Vol] 27.0 mmol/L 21.0-32.0 [facility] [place] [facility] Work Phone: Globulin (S) [Mass/Vol] 3.4 g/dL 2.2-4.2 [facility] Work Phone: [phone] Urea nitrogen/Creatinine [Mass ratio] 17.6 mg/mg 10-20 [facility] [place] [facility] Work Phone: No Panel Informationon 01-27 Estimated GFR (MDRD) Amer 75 mL/min >60 [facility] [place] [facility] Work Phone: [phone] Comment on above: GFR Calc Estimated GFR (MDRD) Non-Af Amer 62 mL/min >60 [facility] [place] [facility] Work Phone: [phone] Comment on above: Non- GFR Calc Serum or plasma albumin linda urement (mass/volume)on 01-27-2022 Albumin [Mass/Vol] 3.8 g/dL 3.2-5.0 [facility] Work Phone: Serum or plasma albumin/glob ulin mass ratioon 01-27-2022 Albumin/Globulin [Mass ratio] 1.1 {ratio} 0.9-2.4 [facility] [place] [facility] Work Phone: Serum or plasma calcium linda urement (mass/volume)on 01-27-2022 Calcium [Mass/Vol] 8.9 mg/dL 8.5-10.1 [facility] Work Phone: Serum or plasma cholesterol in HDL measurement (mass/volume)on 01-27-2022 Cholesterol in HDL [Mass/Vol] 62 mg/dL >40 [facility] [place] [facility] Work Phone: Comment on above: The drugs N-Acetylcy steine and Metamizole may falsely depress this assay. Reference Range HDL <40 mg/dL Low HDL Cholesterol HDL >or= 60 mg/dL High HDL Cholesterol Serum or plasma cholesterol in VLDL measurement (mass/volume)on 01-27-2022 Cholesterol in VLDL [Mass/Vol] 13 mg/dL 5-40 [facility] Work Phone: [phone] Serum or plasma creatinine m easurement (mass/volume)on 01-27-2022 Creatinine [Mass/Vol] 1.25 mg/dL 0.70-1.30 [facility] Work Phone: Comment on above: The validity of the calculated GFR & GFRAA in patients over 70 years has not been determined. Clinical correlation is essential. Serum or plasma low density lipoprotein (LDL) cholesterol measurement (mass/volume)on 01-27-2022 Cholesterol in LDL [Mass/Vol] 84 mg/dL 0-130 [facility] Work Phone: Serum or plasma urea nitroge n measurement (mass/volume)on 01-27-2022 Urea nitrogen [Mass/Vol] 22 mg/dL 7-18 [facility] Work Phone: Thin prep Papanicolaou smear with manual screeningon 01-27-2022 Thin prep Papanicolaou smear with manual screening 50 U/L 15-37 [facility] Work Phone: Thin prep Papanicolaou smear with manual screening 7 5-15 [facility] Work Phone: Absolute lymphocyte counton 11-17-2021 Lymphocytes Auto (Unsp spec) [#/Vol] 0.72 10*3/uL 0.83-4.51 [facility] Work Phone: Basophil percentageon 2021 Basophils/100 WBC (Bld) 1.0 % 0-1 [facility] Work Phone: Bilirubin [Mass/Vol] 0.40 mg/dL 0.20-1.00 [facility] Work Phone: Comment on above: For patients on eltr ombopag therapy, use of Dimension [place] TBIL is not recommended. Chloride [Moles/Vol] 106 mmol/L 98-107 [facility] Work Phone: Eosinophils/100 WBC (Bld) 2.6 % 0-5 [facility] Work Phone: Glucose [Mass/Vol] 86 mg/dL 74-106 [facility] Work Phone: Neutrophils (Bld) [#/Vol] 3.7 10*3/uL 2.0-7.7 [facility] Work Phone: Neutrophils/100 WBC (Bld) 73.1 % 47-70 [facility] Work Phone: Potassium [Moles/Vol] 4.4 mmol/L 3.5-5.1 [facility] Work Phone: Protein [Mass/Vol] 7.6 g/dL 6.4-8.2 [facility] Work Phone: Sodium [Moles/Vol] 139 mmol/L 136-145 [facility] Work Phone: WBC (Bld) [#/Vol] 5.1 10*3/uL 4.4-11.0 [facility] Work Phone: Blood erythrocytes count (nu mber/volume)on 11-17-2021 RBC (Bld) [#/Vol] 4.70 10*6/uL 4.6-6.2 [facility] Work Phone: Blood hemoglobin measurement (mass/volume)on 11-17-2021 Hemoglobin (Bld) [Mass/Vol] 15.1 g/dL 13.0-16.5 [facility] Work Phone: Blood lymphocytes/100 leukoc yteson 11-17-2021 Lymphocytes/100 WBC (Bld) 14.1 % 19-41 [facility] Work Phone: Blood monocytes/100 leukocyt eson 11-17-2021 Monocytes/100 WBC (Bld) 9.0 % 0-10 [facility] Work Phone: Blood platelet mean volumeon 11-17-2021 Platelet mean volume (Bld) [Entitic vol] 10.1 fL 6.2-12.0 [facility] Work Phone: Determination of erythrocyte mean corpuscular volume (MCV)on 11-17-2021 MCV (RBC) [Entitic vol] 97.4 fL 80-94 [facility] Work Phone: Erythrocyte sedimentation ra raciel 11-17-2021 ESR (Bld) [Velocity] 8 mm/h 0-20 [facility] Work Phone: [phone] Hematocrit Auto (Bld) [Volum e fraction]on 11-17-2021 Hematocrit (Bld) [Volume fraction] 45.8 % 40-54 [facility] Work Phone: Laboratory - Chemistry and C hemistry - challengeon 11-17-2021 ALP [Catalytic activity/Vol] 109 U/L 45-117 [facility] Work Phone: ALT [Catalytic activity/Vol] 25 U/L 16-61 [facility] Work Phone: [phone] CO2 [Moles/Vol] 30.0 mmol/L 21.0-32.0 [facility] Work Phone: Globulin (S) [Mass/Vol] 3.8 g/dL 2.2-4.2 [facility] Work Phone: [phone] Urea nitrogen/Creatinine [Mass ratio] 15.7 mg/mg 10-20 [facility] Work Phone: [phone] Laboratory - Hematology and Cell countson 11-17-2021 Erythrocyte distribution width (RBC) [Entitic vol] 47.7 fL 35.1-43.9 [facility] Work Phone: [phone] distribution width (RBC) [Ratio] 13.2 % 11.6-14.6 [facility] Work Phone: [phone] Immature granulocytes/100 WBC (Bld) 0.200 % 0.0-0.9 [facility] Work Phone: [phone] Comment on above: IG% - Immature Granu locytes (promyelocytes, myelocytes and metamyelocytes) > 1% indicates that a LEFT SHIFT is Present. MCH (RBC) [Entitic mass] 32.1 pg 27.0-32.0 [facility] Work Phone: [phone] Nucleated RBC/100 WBC (Bld) [Ratio] 0 % 0-5 [facility] Work Phone: [phone] MCHC Auto (RBC) [Mass/Vol]on 11-17-2021 MCHC (RBC) [Mass/Vol] 33.0 g/dL 32-36 [facility] Work Phone: No Panel Informationon 11-17 Estimated GFR (MDRD) Amer 89 mL/min >60 [facility] Work Phone: Comment on above: GFR Calc Estimated GFR (MDRD) Non-Af Amer 74 mL/min >60 [facility] Work Phone: [phone] Comment on above: Non- GFR Calc Thyroid Stimulating Hormone (TSH) 2.20 uIU/mL 0.358-3.74 [facility] Work Phone: Platelets bldon 11-17-2021 Platelets (Bld) [#/Vol] 300 10*3/uL 150-450 [facility] Work Phone: Serum or plasma albumin linda urement (mass/volume)on 11-17-2021 Albumin [Mass/Vol] 3.8 g/dL 3.2-5.0 [facility] Work Phone: [phone] Serum or plasma albumin/glob ulin mass ratioon 11-17-2021 Albumin/Globulin [Mass ratio] 1.0 {ratio} 0.9-2.4 [facility] Work Phone: [phone] Serum or plasma calcium linda urement (mass/volume)on 11-17-2021 Calcium [Mass/Vol] 8.8 mg/dL 8.5-10.1 [facility] Work Phone: [phone] Serum or plasma creatinine m easurement (mass/volume)on 11-17-2021 Creatinine [Mass/Vol] 1.08 mg/dL 0.70-1.30 [facility] Work Phone: Comment on above: The validity of the calculated GFR & GFRAA in patients over 70 years has not been determined. Clinical correlation is essential. Serum or plasma urea nitroge n measurement (mass/volume)on 11-17-2021 Urea nitrogen [Mass/Vol] 17 mg/dL 7-18 [facility] Work Phone: [phone] Thin prep Papanicolaou smear with manual screeningon 11-17-2021 Thin prep Papanicolaou smear with manual screening 22 U/L 15-37 [facility] Work Phone: [phone] Thin prep Papanicolaou smear with manual screening 3 5-15 [facility] Work Phone: Basophil percentageon 2021 Bilirubin [Mass/Vol] 0.50 mg/dL 0.20-1.00 [facility] Work Phone: [phone] Comment on above: For patients on eltr ombopag therapy, use of Dimension [place] TBIL is not recommended. Chloride [Moles/Vol] 106 mmol/L 98-107 [facility] Work Phone: [phone] Cholesterol [Mass/Vol] 169 mg/dL <200 [facility] Work Phone: [phone] Comment on above: <200 mg/dL Desirable 200-240 mg/dL Borderline >240 mg/dL High Risk Glucose [Mass/Vol] 78 mg/dL 74-106 [facility] Work Phone: [phone] Potassium [Moles/Vol] 4.3 mmol/L 3.5-5.1 [facility] Work Phone: [phone] Protein [Mass/Vol] 7.8 g/dL 6.4-8.2 [facility] Work Phone: [phone] Sodium [Moles/Vol] 138 mmol/L 136-145 [facility] Work Phone: [phone] Triglyceride [Mass/Vol] 56 mg/dL [facility] Work Phone: [phone] Comment on above: The drugs N-Acetylcy steine and Metamizole may falsely depress this assay.Serum Triglycerides Reference Interval Normal <150 mg/dL Borderline high 150 - 199 mg/dL High 200 - 499 mg/dL Very High > or = 500 mg/dL Laboratory - Chemistry and C hemistry - challengeon 11-04-2021 ALP [Catalytic activity/Vol] 124 U/L 45-117 [facility] Work Phone: ALT [Catalytic activity/Vol] 22 U/L 16-61 [facility] Work Phone: [phone] CO2 [Moles/Vol] 28.0 mmol/L 21.0-32.0 [facility] Work Phone: [phone] Globulin (S) [Mass/Vol] 3.9 g/dL 2.2-4.2 [facility] Work Phone: [phone] Urea nitrogen/Creatinine [Mass ratio] 12.8 mg/mg 10-20 [facility] Work Phone: [phone] No Panel Informationon 11-04 Estimated GFR (MDRD) Amer 75 mL/min >60 [facility] Work Phone: [phone] Comment on above: GFR Calc Estimated GFR (MDRD) Non-Af Amer 62 mL/min >60 [facility] Work Phone: Comment on above: Non- GFR Calc Serum or plasma albumin linda urement (mass/volume)on 11-04-2021 Albumin [Mass/Vol] 3.9 g/dL 3.2-5.0 [facility] Work Phone: Serum or plasma albumin/glob ulin mass ratioon 11-04-2021 Albumin/Globulin [Mass ratio] 1.0 {ratio} 0.9-2.4 [facility] Work Phone: Serum or plasma calcium linda urement (mass/volume)on 11-04-2021 Calcium [Mass/Vol] 9.3 mg/dL 8.5-10.1 [facility] Work Phone: Serum or plasma cholesterol in HDL measurement (mass/volume)on 11-04-2021 Cholesterol in HDL [Mass/Vol] 60 mg/dL [facility] Work Phone: Comment on above: The drugs N-Acetylcy steine and Metamizole may falsely depress this assay. Reference Range HDL <40 mg/dL Low HDL Cholesterol HDL >or= 60 mg/dL High HDL Cholesterol Serum or plasma cholesterol in VLDL measurement (mass/volume)on 11-04-2021 Cholesterol in VLDL [Mass/Vol] 11 mg/dL 5-40 [facility] Work Phone: Serum or plasma creatinine m easurement (mass/volume)on 11-04-2021 Creatinine [Mass/Vol] 1.25 mg/dL 0.70-1.30 [facility] Work Phone: Comment on above: The validity of the calculated GFR & GFRAA in patients over 70 years has not been determined. Clinical correlation is essential. Serum or plasma low density lipoprotein (LDL) cholesterol measurement (mass/volume)on 11-04-2021 Cholesterol in LDL [Mass/Vol] 98 mg/dL 0-130 [facility] Work Phone: Serum or plasma urea nitroge n measurement (mass/volume)on 11-04-2021 Urea nitrogen [Mass/Vol] 16 mg/dL 7-18 [facility] Work Phone: [phone] Thin prep Papanicolaou smear with manual screeningon 11-04-2021 Thin prep Papanicolaou smear with manual screening 23 U/L 15-37 [facility] Work Phone: Thin prep Papanicolaou smear with manual screening 4 5-15 [facility] Work Phone: COVID-19 virus antigen assay SARS-CoV-2 (COVID-19) Ag IA.rapid Ql (Resp) [facility] Work Phone: Vital Signs Date Time Vital Sign Value Performing Clinician Faci lity 02-17-2025 06:47-0400 Body mass index (BMI) [Ratio] 37.8 kg/m2 Dr. Eduin Watts MD Work Phone: [facility] 02-17-2025 06:47-0400 Body weight 116.[address] Eduin Watts MD Work Phone: [facility] 02-17-2025 06:47-0400 Diastolic blood pressure 82 mm[Hg] Dr. Eduin Watts MD Work Phone: [facility] 02-17-2025 06:47-0400 Heart rate 57 /min Dr. Eduin Watts MD Work Phone: [facility] 02-17-2025 06:47-0400 Respiratory rate 18 /min Dr. Eduin Watts MD Work Phone: [facility] 02-17-2025 06:47-0400 SaO2% (BldA) [Mass fraction] 98 % Dr. Eduin Watts MD Work Phone: [facility] 02-17-2025 06:47-0400 Systolic blood pressure 126 mm[Hg] Dr. Eduin Watts MD Work Phone: [facility] 12-07-2024 11:08-0400 Body mass index (BMI) [Ratio] 38.88 kg/m2 Nurys Salazar APRN.[employer]FTWARE SAL[employer] Work Phone: [facility] 12-07-2024 11:08-0400 Body temperature 97 [degF] Nurys Salazar APRN.[employer]FTWARE SAL[employer] Work Phone: [facility] 12-07-2024 11:08-0400 Body weight 116 kg Nurys Moomaw WIRER.[employer]FTWARE SALES Work Phone: [facility] 12-07-2024 11:08-0400 Diastolic blood pressure 90 mm[Hg] Nurys Moomaw WIRER.[employer]FTWARE SAL[employer] Work Phone: [facility] 12-07-2024 11:08-0400 Heart rate 60 /min Nurys Moomaw WIRER.[employer]FTWARE [employer] Work Phone: [facility] 12-07-2024 11:08-0400 Respiratory rate 20 /min Nurys Moomaw WIRER.[employer]FTWARE SAL[employer] Work Phone: [facility] 12-07-2024 11:08-0400 SaO2% (BldA) [Mass fraction] 97 % Nurys Moomaw WIRER.[employer]FTWARE SAL[employer] Work Phone: [facility] 12-07-2024 11:08-0400 Systolic blood pressure 128 mm[Hg] Nurys Moomaw WIRER.[employer]FTWARE [employer] Work Phone: [facility] 01-11-2024 20:38-0400 Body temperature 97.3 [degF] Dr. Eduin Watts Work Phone: [facility] 01-11-2024 20:38-0400 Diastolic blood pressure 74 mm[Hg] Dr. Eduin Watts Work Phone: [facility] 01-11-2024 20:38-0400 Heart rate 60 /min Dr. Eduin Watts Work Phone: [facility] 01-11-2024 20:38-0400 Respiratory rate 17 /min Dr. Eduin Watts Work Phone: [facility] 01-11-2024 20:38-0400 SaO2% (BldA) [Mass fraction] 97 % Dr. Eduin Watts Work Phone: [facility] 01-11-2024 20:38-0400 Systolic blood pressure 103 mm[Hg] Dr. Eduin Watts Work Phone: [facility] 01-11-2024 17:36-0400 Body height 175.[address] Eduin Watts Work Phone: [facility] 01-11-2024 17:36-0400 Body mass index (BMI) [Ratio] 38.2 kg/m2 Dr. Eduin Watts Work Phone: [facility] 01-11-2024 17:36-0400 Body weight 117.[address] Eduin Watts Work Phone: [facility] 10-06-2023 14:15-0500 Body height 175.[address] Eduin Watts Work Phone: [facility] 10-06-2023 14:15-0500 Body mass index (BMI) [Ratio] 37.9 kg/m2 Dr. Eduin Watts Work Phone: [facility] 10-06-2023 14:15-0500 Body weight 116.[address] Eduin Watts Work Phone: [facility] 10-06-2023 14:15-0500 Diastolic blood pressure 81 mm[Hg] Dr. Eduin Watts Work Phone: [facility] 10-06-2023 14:15-0500 Heart rate 70 /min Dr. Eduin Watts Work Phone: [facility] 10-06-2023 14:15-0500 Respiratory rate 18 /min Dr. Eduin Watts Work Phone: [facility] 10-06-2023 14:15-0500 SaO2% (BldA) [Mass fraction] 95 % Dr. Eduin Watts Work Phone: [facility] 10-06-2023 14:15-0500 Systolic blood pressure 125 mm[Hg] Dr. Eduin Watts Work Phone: [facility] 05-05-2023 14:49-0400 SaO2% (BldA) [Mass fraction] 96 % Dr. Eduin Watts Work Phone: [facility] 05-05-2023 13:45-0400 Body temperature 97.7 [degF] Dr. Eduin Watts Work Phone: [facility] 05-05-2023 13:45-0400 Diastolic blood pressure 86 mm[Hg] Dr. Eduin Watts Work Phone: [facility] 05-05-2023 13:45-0400 Heart rate 62 /min Dr. Eduin Watts Work Phone: [facility] 05-05-2023 13:45-0400 Respiratory rate 18 /min Dr. Eduin Watts Work Phone: [facility] 05-05-2023 13:45-0400 Systolic blood pressure 121 mm[Hg] Dr. Eduin Watts Work Phone: [facility] 05-04-2023 20:42-0400 Body height 175.[address] Eduin Watts Work Phone: [facility] 05-04-2023 20:42-0400 Body mass index (BMI) [Ratio] 38 kg/m2 Dr. Eduin Watts Work Phone: [facility] 05-04-2023 20:42-0400 Body weight [address] Eduin Watts Work Phone: [facility] 03-30-2023 10:59-0400 Body mass index (BMI) [Ratio] 38 kg/m2 Dr. Eduin Watts Work Phone: [facility] 03-30-2023 10:59-0400 Body weight 116.[address] Eduin Watts Work Phone: [facility] 03-30-2023 10:59-0400 Diastolic blood pressure 86 mm[Hg] Dr. Eduin Watts Work Phone: [facility] 03-30-2023 10:59-0400 Heart rate 65 /min Dr. Eduin Watts Work Phone: [facility] 03-30-2023 10:59-0400 Respiratory rate 18 /min Dr. Eduin Watts Work Phone: [facility] 03-30-2023 10:59-0400 SaO2% (BldA) [Mass fraction] 96 % Dr. Eduin Watts Work Phone: [facility] 03-30-2023 10:59-0400 Systolic blood pressure 135 mm[Hg] Dr. Eduin Watts Work Phone: [facility] 11-07-2022 11:16-0500 Body height 175.[address] Eduin Watts Work Phone: [facility] 11-07-2022 11:16-0500 Body mass index (BMI) [Ratio] 39.1 kg/m2 Dr. Eduin Watts Work Phone: [facility] 11-07-2022 11:16-0500 Body weight 120.[address] Eduin Watts Work Phone: [facility] 11-07-2022 11:16-0500 Diastolic blood pressure 82 mm[Hg] Dr. Eduin Watts Work Phone: [facility] 11-07-2022 11:16-0500 Heart rate 77 /min Dr. Eduin Watts Work Phone: [facility] 11-07-2022 11:16-0500 Respiratory rate 16 /min Dr. Eduin Watts Work Phone: [facility] 11-07-2022 11:16-0500 SaO2% (BldA) [Mass fraction] 97 % Dr. Eduin Watts Work Phone: [facility] 11-07-2022 11:16-0500 Systolic blood pressure 121 mm[Hg] Dr. Eduin Watts Work Phone: [facility] 07-26-2022 10:42-0500 Body height 175.[address] Eduin Watts Work Phone: [facility] Work Phone: 07-26-2022 10:42-0500 Body mass index (BMI) [Ratio] 38.9 kg/m2 Dr. Eduin Watts Work Phone: [facility] 07-26-2022 10:42-0500 Body weight 119.[address] Eduin Watts Work Phone: [facility] 07-26-2022 10:42-0500 Diastolic blood pressure 90 mm[Hg] Dr. Eduin Watts Work Phone: [facility] 07-26-2022 10:42-0500 Heart rate 66 /min Dr. Eduin Watts Work Phone: [facility] 07-26-2022 10:42-0500 Respiratory rate 18 /min Dr. Eduin Watts Work Phone: [facility] 07-26-2022 10:42-0500 SaO2% (BldA) [Mass fraction] 96 % Dr. Eduin Watts Work Phone: [facility] 07-26-2022 10:42-0500 Systolic blood pressure 132 mm[Hg] Dr. Eduin Watts Work Phone: [facility] 07-13-2022 21:17-0400 Diastolic blood pressure 100 mm[Hg] [facility] Work Phone: 07-13-2022 21:17-0400 Heart rate 59 /min [facility] Work Phone: 07-13-2022 21:17-0400 Respiratory rate 18 /min [facility] Work Phone: 07-13-2022 21:17-0400 SaO2% (BldA) [Mass fraction] 94 % [facility] Work Phone: 07-13-2022 21:17-0400 Systolic blood pressure 152 mm[Hg] [facility] Work Phone: 07-13-2022 15:28-0400 Body height 175.26 cm [facility] Work Phone: 07-13-2022 15:28-0400 Body mass index (BMI) [Ratio] 37.8 kg/m2 [facility] Work Phone: 07-13-2022 15:28-0400 Body temperature 96.5 [degF] [facility] Work Phone: 07-13-2022 15:28-0400 Body weight 116 kg [facility] Work Phone: 02-13-2022 14:45-0400 Body height 172.72 cm [facility] Work Phone: 02-13-2022 14:45-0400 Body mass index (BMI) [Ratio] 38.2 kg/m2 [facility] Work Phone: 02-13-2022 14:45-0400 Body temperature 98.3 [degF] [facility] Work Phone: 02-13-2022 14:45-0400 Body weight 114.3 kg [facility] Work Phone: 02-13-2022 14:45-0400 Diastolic blood pressure 89 mm[Hg] [facility] Work Phone: 02-13-2022 14:45-0400 Heart rate 81 /min [facility] Work Phone: 02-13-2022 14:45-0400 Respiratory rate 16 /min [facility] Work Phone: 02-13-2022 14:45-0400 SaO2% (BldA) [Mass fraction] 96 % [facility] Work Phone: 02-13-2022 14:45-0400 Systolic blood pressure 132 mm[Hg] [facility] Work Phone: Encounters Encounter Date Encounter Type Care Provider Facility Start: 04-01-2025 ambulatory Eduin Watts Facility:[facility] Start: 2025 End: [address] Eduin Watts MD Work Phone: -Laboratory [facility] Start: 2025 End: [address] Eduin Watts MD -Laboratory [facility] Start: 2025 End: 2025 ambulatory Eduin Watts Facility:[facility] Start: 02-17-2025 End: 02-17-2025 Patient encounter procedure Carrillo Douglas Velma ALLAN-Ricky -[facility] Work Phone: Start: 02-17-2025 End: 02-17-[address] Eduin Watts MD Work Phone: [facility] Work Phone: Start: 02-06-2025 End: 02-06-[address] Eduin Watts MD Work Phone: [facility] Work Phone: Start: 02-06-2025 End: 02-06-[address] Eduin Watts MD -Laboratory Spec[facility] Work Phone: Start: 02-05-2025 End: 02-06-[address] Eduin Watts MD Work Phone: [facility] Work Phone: Start: 02-05-2025 End: 02-05-[address] Eduin Watts MD -Laboratory [facility] Start: 02-05-2025 End: 02-05-2025 ambulatory Eduin Watts Facility:[facility] Start: 12-07-2024 End: 12-07-2024 ambulatory ALVIN Pierce KIA Facility:[facility] Start: 12-07-2024 End: 12-07-2024 Patient encounter procedure Nurys Marie [employer] Work Phone: [facility] Comment on above: Bilateral impacted c erumen (Primary Dx) Start: 10-12-2024 ambulatory Eduin Watts Facility:[facility] Start: 10-11-2024 End: 10-11-2024 ambulatory Eduin Watts Facility:[facility] Start: 08-19-2024 End: 08-19-2024 ambulatory Eduni Watts Facility:[facility] Start: 06-10-2024 End: 06-10-2024 ambulatory Eduin Watts Facility:[facility] Start: 06-08-2024 End: 06-08-2024 Emergency department patient visit Eduin Watts Facility:[facility] Start: 05-02-2024 End: 05-02-2024 ambulatory Eduin Watts Facility:[facility] Start: 01-11-2024 End: 01-11-2024 Emergency department patient visit Dr. Eduin Watts Work Phone: [facility]-Emergency Department Work Phone: Start: 12-14-2023 End: 12-14-[address] Eduin Watts Work Phone: [facility] Work Phone: Start: 12-14-2023 End: 12-14-[address] Eduin Watts Work Phone: [facility] Work Phone: Start: 10-06-2023 End: 10-06-[address] Eduin Watts Work Phone: [facility] Work Phone: Start: 10-06-2023 End: 10-06-[address] Eduin Watts Work Phone: [facility] Work Phone: Start: 08-17-2023 End: 08-17-[address] Eduin Watts Work Phone: [facility] Work Phone: Start: 05-05-2023 Non-patient / Non-visit Dr. Santos Watts Work Phone: [facility] Work Phone: Start: 05-05-2023 Non-patient / Non-visit Dr. Santos Watts Work Phone: [facility] Start: 05-04-2023 Non-patient / Non-visit Dr. Santos Watts Work Phone: [facility] Work Phone: Start: 05-04-2023 End: 05-05-2023 Evaluation and management of inpatient Dr. Eduin Watts Work Phone: [facility] Work Phone: Start: 05-04-2023 End: 05-05-[address] Eduin Watts Work Phone: [facility] Work Phone: Start: 03-30-2023 End: 03-30-[address] Eduin Watts Work Phone: [facility] Work Phone: Start: 02-02-2023 End: 02-02-[address] Eduin Watts Work Phone: [facility] Start: 11-14-2022 Non-patient / Non-visit Dr. Santos Watts Work Phone: [facility] Start: 11-14-2022 End: 11-14-[address] Eduin Watts Work Phone: [facility] Work Phone: Start: 11-14-2022 End: 11-14-[address] [facility] Start: 11-07-2022 End: 11-07-[address] Eduin Watts Work Phone: [facility] Start: 09-22-2022 End: 09-22-[address] Eduin Watts Work Phone: [facility] Start: 09-01-2022 Non-patient / Non-visit Dr. Santos Watts Work Phone: [facility] Start: 08-09-2022 Non-patient / Non-visit Dr. Santos Watts Work Phone: [facility] Start: 08-09-2022 End: 08-09-[address] Eduin Watts Work Phone: [facility] Work Phone: Start: 08-09-2022 End: 08-09-[address] [facility] Start: 08-03-[address] Eduin loya [facility] Start: 07-26-2022 End: 07-26-[address] Eduin Watts Work Phone: [facility] Start: 07-13-2022 End: 07-13-2022 [facility] Start: 04-18-2022 End: 04-18-2022 Patient encounter procedure [facility] Start: 02-13-2022 End: 02-13-2022 [facility] Start: 01-27-2022 End: 01-27-2022 Patient encounter procedure [facility] Start: 11-17-2021 End: 11-17-2021 Patient encounter procedure [facility] Start: 11-04-2021 End: 11-04-2021 [facility] Date Procedure Procedure Detail Performing Clinician [...] DTaP,Tdap,Td Vaccine (2 - Td or Tdap) [facility] Start: 09-18-2024 Advance Directive Discussion Advance Directive Discussion [facility] Start: 05-19-2024 Covid-19 Vaccine () Covid-19 Vaccine () [facility] Start: 05-19-2024 Influenza [facility] Start: 01-11-2024 [facility] Start: 05-06-2023 Blood chemistry [facility] Start: 05-05-2023 Patient discharge [facility] Start: 05-05-2023 Referral to vascular surgeon [facility] Start: 05-04-2023 Application of intermittent pneumatic compression device [facility] Start: 05-04-2023 Following clinical pathway protocol [facility] Start: 05-04-2023 Assessment of risk of venous thromboembolism [facility] Start: 05-04-2023 Inhalation therapy procedure [facility] Start: 05-04-2023 Insertion of catheter into peripheral vein [facility] Start: 05-04-2023 Measuring intake and output [facility] Start: 05-04-2023 Oxygen therapy [facility] Start: 05-04-2023 Providing care according to standard [facility] Start: 05-04-2023 Provision of activity privileges [facility] Start: 05-04-2023 Referral to early intervention specialist [facility] Start: 05-04-2023 Tobacco use cessation education [facility] Start: 05-04-2023 [facility] Start: 05-04-2023 Verification routine [facility] Start: 05-04-2023 Admission procedure [facility] Start: 07-13-2022 [facility] Work Phone: Start: 2019 RSV Vaccine (1 - Risk 60-74 years 1-dose series) RSV Vaccine (1 - Risk 60-74 years 1-dose series) [facility] Start: 2014 Prostate specific antigen measurement Prostate Cancer Screening Discussion [facility] Start: 2009 Shingrix Vaccine (1 of 2) Shingrix Vaccine (1 of 2) [facility] Start: 2004 Screening for malignant neoplasm of colon [facility] Start: 1978 Pneumococcal Vaccine: 50+ (1 of 2 - PCV) Pneumococcal Vaccine: 50+ (1 of 2 - PCV) [facility] Start: 1977 Annual PCP Team Chronic Disease Visit Annual PCP Team Chronic Disease Visit [facility] Start: 1977 Anxiety Screening Anxiety Screening [facility] Start: 1977 Hepatitis B surface antibody level LDL Cholesterol [facility] Start: 1977 Hepatitis C screening Hepatitis C Screening [facility] Start: 1977 HIV screening HIV Screening [facility] Start: 1977 Spirometry Spirometry [facility] Start: 1969 Diabetic foot examination Diabetic Foot Exam [facility] Start: 1969 Glaucoma screening Dilated Retinal Exam [facility] Start: 1969 Hepatitis B screening Urine Albumin:Creatinine Ratio [facility] Start: 1964 Hemoglobin A1c measurement HbA1C [facility] anthony Anion gap measurement [facility] BUN/Creatinine ratio [facility] Calcium [Mass/volume ] in Serum or Plasma [facility] Carbon dioxide, tota l [Moles/volume] in Serum or Plasma [facility] Chloride [Moles/volu me] in Serum or Plasma [facility] Creatinine [Moles/vo lume] in Serum or Plasma [facility] Glucose [Mass/volume ] in Serum or Plasma [facility] Hematocrit [Volume Fraction] of Blood [facility] Hemoglobin [Mass/vol ume] in Blood [facility] Leukocytes [#/volume ] in Blood [facility] Mean corpuscular hemoglobin concentration determination [facility] Mean corpuscular hemoglobin determination [facility] Measurement of renal function [facility] Neutrophil count [facility] Neutrophil percent differential count [facility] Patient Education [facility] Work Phone: Patient referral [facility] Work Phone: Platelets [#/volume] in Blood [facility] Potassium [Moles/vol ume] in Serum or Plasma [facility] Red blood cell count [facility] Red cell distributio n width determination [facility] Sodium [Moles/volume ] in Serum or Plasma [facility] Urea nitrogen [Mass/volume] in Serum or Plasma [facility] Immunizations Immunization Date Immunization Notes Care Provider Maria Luz klein 02-13-2022 tetanus toxoid, redu jung diphtheria toxoid, and acellular pertussis vaccine, adsorbed [facility] Payers Date Payer Category Payer Medicare (Managed Care) [facility] [id number] 2024 Self-pay [id number] 2022 Medicare [id number] 2001 Medicaid [place] [id number] 2001 Medicaid [id number] 1987 Medicare [id number] Medicare [id number] Unknown [id number] Unknown [id number] 462 Unknown [id number] 462 Unknown [id number] [id number] 462 Unknown [id number] 2..[id number] 462 Unknown [id number] [id number] 462 Unknown [id number] 2..[id number]. 462 Unknown [id number] 2..[id number]. 462 Unknown [id number] 462 Unknown [id number] [id number]. 462 Unknown [id number] [id number] 462 Unknown [id number] [id number] 462 Social History Date Type Detail Facility Start: 05-11-2021 End: 01-11-2024 Tobacco smoking status MOIS Unknown if ever smoked [facility] Start: 02-20-2021 None [facility] Start: 02-20-2021 Alone [facility] Start: 02-20-2021 Non-smoker [facility] Start: 1960 Sex Assigned At Male [facility] Start: 06-08-2024 End: 12-07-2024 Tobacco smoking status NHIS Never smoked tobacco [facility] Start: 12-07-2024 Tobacco use and exposure Smokeless tobacco non-user [facility] Start: 12-07-2024 Alcoholic beverage intake Current non-drinker of alcohol (finding) [facility] Start: 12-07-2024 History of Social function [facility] Start: 12-07-2024 Tobacco use panel [facility] Start: 1960 Sex [facility] at [facility] Goals Date Patient Goal Desired Activity /State Functional Status Date Assessment Result Facility 05-05-2023 Functional status Ambulates [facility] Work Phone: 10-18-2016 Are you deaf, or do you have serious difficulty hearing No 10/18/2016 10:49 AM Evelyne Crowell RN No [facility] 10-18-2016 Are you blind, or do you have serious difficulty seeing, even when wearing glasses No 10/18/2016 10:49 AM Evelyne Crowell RN No [facility] 10-18-2016 Do you have serious difficulty walking or climbing stairs No 10/18/2016 10:49 AM Evelyne Crowell RN No [facility] 10-18-2016 Do you have difficul ty dressing or bathing No 10/18/2016 10:49 AM Evelyne Crowell RN No [facility] 10-18-2016 Because of a physica l, mental, or emotional condition, do you have difficulty doing errands alone such as visiting a physician's office or shopping No 10/18/2016 10:49 AM Evelyne Crowell RN No [facility] Mental Status Date Assessment Result Facility 05-05-2023 Cognitive function Voice/Name [facility] Work Phone: 10-18-2016 Because of a physica l, mental, or emotional condition, do you have serious difficulty concentrating, remembering, or making decisions No 10/18/2016 10:49 AM Evelyne Crowell RN No [facility] Clinical Notes 05-04-2023 to 02-17-2025 Note [...] atrial fibrillation suspected February 17, 2025 12:49pm [facility] Work Phone: 1(993) 866-959903-22-2025 NoteHNO ID: [id number] Author: NURYS SALAZAR APRN.[employer] Service: ? Author Type: Nurse Practitioner Type: Progress Notes Filed: 12/07/2024 11:58 Note Text: This note was created using [employer]. Subjective Eloina Tovar is a 64 year [...] unremarkable on reevaluation. Patient discharged. Nurys Salazar APRN.[facility]03-22-2025 History of Present illness Narrative* Nurys Salazar APRN.[facility] - 12/07/2024 11:11 AM EDT This note was created using [employer]. Subjective Eloina Tovar is a 64 year [...] discharged. Nurys Salazar APRN.CNP [facility] Discharge summary Author Marco Whiteside [facility] May 05, 2023 2:44pm Note Date/Time May 05, 2023 2: 37pm [facility] Medical Records Department [address] [place] [address] Discharge Summary 05/05/23 1401 MR#: [id number] Acct: [id number] Name: ELOINA TOVAR Rep #:[id number] : 1960 63 From: Marco longoria MD PCP: Dr. Eduin Watts MD Status:ADM I NO Location: [place] [address] Providers Date of Admission: 05/04/23 Primary Care [...] 74.8 H, Lymph % (Auto) 11.6 L, [place] % (Auto) 10.7 H, Eos % (Auto) [...] % (Auto) 58.9, Lymph % (Auto) 24.5, [place]% (Auto) 12.3 H, Eos % (Auto) 3.1, [...] Self Care Charges/Coding Visit Charges Inpatient E&M: 09924 Disch Hosp >30min 05/05/23 1444 <Electronically signed by Marco Whiteside MD> Cosigner Signature (if applicable): CC: Dr. Marco Whiteside MD; Dr. Eduin Watts MD~ Signed [facility] Work Phone: 1(539) 480-820208-18-2023 Consult note Author Gina Leblanc [facility] May 05, 2023 2:05pm Note Date/Time May 05, 2023 8: 41am [facility] Medical Records Department [address] [place] [address] Consultation - Cardiology 05/05/2338 MR#: [id number] Acct: [id number] Name: ELOINA TVOAR Rep #:[id number] : 1960 63 From: Gina HARGROVE PCP: Dr. Eduin Watts MD Status:ADM I NO Location: [place] [address] Assessment & Plan Assessment/Plan (1) Chest pain: [...] is a 63 M who presented to [facility] ER on 05/04/23 with increase SOB, diaphoresis and chest pain. He states with any exertion he gets extremely short of breath and he feels like there is a constriction around his neck. He will also get pain under the left breast area and will break out in a sweat. When he sits to rest symptoms will slightly improve. [facility]. Patient was last seen in our office in March 2023. He does have a history of hypertension and atrial fibrillation. Patient had a stress test in October 2022 which was negative for ischemia. Echocardiogram in July 2022 demonstrated mildly reduced ejection fraction of 45%. Mild to moderate dilated aortic root. Mild aortic insufficiency. [facility] Medical History AA (alcohol abuse) Abscess of [...] 74.8 H, Lymph % (Auto) 11.6 L, [place] % (Auto) 10.7 H, Eos % (Auto) [...] % (Auto) 58.9, Lymph % (Auto) 24.5, [place]% (Auto) 12.3 H, Eos % (Auto) 3.1, [...] 74.8 H, Lymph % (Auto) 11.6 L, [place] % (Auto) 10.7 H, Eos % (Auto) [...] % (Auto) 58.9, Lymph % (Auto) 24.5, [place] % (Auto) 12.3 H, Eos % (Auto) [...] Calvo MD; Dr. Eduin Watts MD~ Signed [facility] Work Phone: 1(967) 748-409108-18-2023 Discharge summary Author Marco Whiteside [facility] May 05, 2023 1:40pm Note Date/Time May 05, 2023 1: 36pm [facility] Medical Records Department [address] [place] [address] Instructions for Home/Discharge Instructions 05/05/23 1313 MR#: [id number] Acct: [id number] Name: ELOINA TOVAR Rep #:[id number] : 1960 63 From: Marco longoria MD [...] MD>Marco Whiteside MD CC: Dr. Miguel Angel Lopes MD; Dr. Arben Arguello MD; Dr. Ramy Calvo MD; Dr. Eduin Watts MD ~ Signed [facility] Work Phone: 1(314) 597-279408-18-2023 Progress note Author Marcogabriella Whiteside [facility] May 05, 2023 10:35am Note Date/Time May 05, 2023 10 :35am [facility] Medical Records Department [address] [place] [address] Progress Note - Hospitalist 05/05/23 1031 MR#: [id number] Acct: [id number] Name: ELOINA TOVAR Rep #:[id number] : 1960 63 From: Marco longoria MD PCP: Dr. Eduin Watts MD Status:ADM I NO Location: [place] [address] Subjective Subjective Doing well, no issues overnight. [...] 74.8 H, Lymph % (Auto) 11.6 L, [place] % (Auto) 10.7 H, Eos % (Auto) [...] % (Auto) 58.9, Lymph % (Auto) 24.5, [place]% (Auto) 12.3 H, Eos % (Auto) 3.1, [...] Heparin drip Charges/Coding Visit Charges Inpatient E&M: 31910 Subs Hosp L2 05/05/23 1035 <Electronically signed by Marco Whiteside MD> Cosigner Signature (if applicable): CC: ~ Signed [facility] Work Phone: 1(235) 907-801708-18-2023 Discharge summary Author Yolie Skinner [facility] May 05, 2023 1:47am Note Date/Time May 04, 2023 4: 43pm [facility] Medical Records Department [address] [place] [address] Emergency Department Summary 05/04/23 MR#: [id number] Acct: [id number] Name: ELOINA TOVAR Rep #:[id number] : 1960 63 From: Yolie Skinner MD PCP: Dr. Eduin Watts MD Status:ADM I NO Location: [address] History of Present Illness Chief Complaint: [...] a bad heart valve. Patient states his early intervention specialist wanted him to have a heart cath coming up, but he lost the paperwork on when that was supposed to be performed. [facility] Medical History AA (alcohol abuse) Abscess [...] Status Date / Time [facility]idine [facility] Allergy Unknown Verified 05/04/23 16:03 Milk Containing [...] decision making narrative: Patient placed on cardiac nurse practitioner. He is given aspirin. EKG obtained to [...] 74.8 H Lymph % (Auto) 11.6 L [place] % (Auto) 10.7 H Eos % (Auto) [...] Provider] - Disposition Disposition: Acute Care Hospital [facility] What to do if you have Problems For any increased pain, shortness of breath, bleeding, nausea or vomiting, chestpain, or any unexpected problems, contact your Primary Care Provider. Call [facility] ([phone]) or report to the closest Emergency Room. Call 911 if necessary. 05/05/23146 <Electronically signed by Yolie Skinner MD> Cosigner Signature (if applicable): CC: Dr. Eduin Watts MD ~ Signed [facility] Work Phone: 1([phone]) 793-310708-17-2023 History and physical note Author Ramy willy [facility] May 04, 2023 9:19pm Note Date/Time May 04, 2023 7: 27pm [facility] Medical Records Department [address] [place] [address] H&P Exam - Hospitalist 05/04/231925 MR#: [id number] Acct: [id number] Name: ELOINA TOVAR Rep #:[id number] : 1960 63 From: Ramy Calvo MD PCP: Dr. Eduin Watts MD Status:ADM I NO Location: [facility] [id number] HPI - General General Date of [...] be held for possible cath next day. [facility] Medical History AA (alcohol abuse) Abscess of [...] (74 tabs) tablets in a dose pack ([employer] DVT-PE Treat 30D Start) 5 mg PO [...] 74.8 H, Lymph % (Auto) 11.6 L, [place] % (Auto) 10.7 H, Eos % (Auto) [...] Roberto Murguia MD at 17:17 EDT , Assessment & [...] documentation, 65minutes. Charges/Coding Visit Charges Inpatient E&M: 13745 Init Hosp L3 05/04/232118 <Electronically signed by Ramy Calvo MD> Cosigner Signature (if applicable): CC: Dr. Ramy Calvo MD; Dr. Eduin Watts MD~ Signed [facility] Work Phone: Evaluation noteNo assessment information available [facility] Work Phone: Evaluation note* Diagnosis Onset Date Resolution Status Abnormal stress test acute Hypertension [facility] Work Phone: Evaluation note* Diagnosis Onset Date Resolution Status Abnormal stress test acute Hypertension chronic Chest pain acute Dilated aortic root acute JOVEL (dyspnea on exertion) ac marcellus Fatigue acute HFrEF (heart failure with reduced ejection fraction) acute Hypertension [facility] Work Phone: Evaluation note* Diagnosis Onset Date Resolution Status Chest pain acute Dilated aortic root acute JOVEL (dyspnea on exertion) ac marcellus HFrEF (heart failure with reduced ejection fraction) acute Hypertension chronic Chest pain acute Dilated aortic root acute Unstable angina acute Essential (primary) hypertension chronic Hyperlipidemia chronic [facility] Work Phone: Evaluation note* Diagnosis Onset Date Resolution Status Chest pain acute Dilated aortic root acute Fatigue acute HFrEF (heart failure with reduced ejection fraction) acute Hypertension [facility] Work Phone: Evaluation note* Diagnosis Bilateral impacted cerumen- Primary Impacted cerumen [facility] Diagnosis Onset Date Resolution Status Admit Date Dilated aortic root acute February 17, 2025 12:49pm DM type 2 (diabetes mellitus , type 2) acute February 17, 2025 1 2:49pm HFrEF (heart failure with reduced ejection fraction) acute February 17, 2025 12:49pm Hypertension chronic February 17 12:49pm Paroxysmal atrial fibrillation suspe cted February 17, 2025 12:49pm [facility] Work Phone: Reason for referral (narrative)No reason for referral [facility] Work Phone: Family History No Family History [...] February 20, 2021 1 2:07pm Power of Communications Project Lead No February 20, 2021 12:07pm Advance Directive Response Recorded Date/ Time Advance Directives No May 3:50pm Living Will No February 13, 2022 2 :50pm Power of Communications Project Lead No February 13, 2022 2:50pm Advance Directive Response Recorded Date/ Time Advance Directives No May 3:50pm Living Will No July 13 5:11pm Power of Communications Project Lead No July 13, 2022 5:11pm Advance Directive Response Recorded Date/ Time Advance Directives No May 2:50pm Living Will No July 13 4:11pm Power of Communications Project Lead No July 13, 2022 4:11pm Advance Directive Response Recorded Date/ Time Advance Directives No May 3:50pm Living Will No May 04 3 8:42pm Power of Communications Project Lead No May 04, 2 023 8:42pm Advance Directive Response Recorded Date/ Time Advance Directives No May 2:50pm Living Will No May 04 3 7:42pm Power of Communications Project Lead No May 04 023 7:42pm Advance Directive Response Recorded Date/ Time Advance Directives No May 3:50pm Living Will No January 11, 2024 5:35pm Power of Communications Project Lead No January 10 5:35pm Advance Directive Response Recorded Date/ Time Advance Directives No May 3:50pm Advance Directive Response Recorded Date/ Time Living Will No January 11, 2024 5:35pm Do you have a Healthcare Power of Communications Project Lead? No January 11, 2024 5:35pm Advance Directives [...] Care Provider, Referring Provider Active Chela Falk PRESIDENT CEO & FOUNDER, PRESIDENT CEO [employer] FOUNDER-C Attending Provider Active Team Status: Active Member Role Status Dates Dr. Eduin Watts MD Primary Care Provider Active Dr. Alexandre Valles MD Attending Provider Active Team Status: Active Member Role Status Dates Dr. Eduin Watts MD Primary Care Provider Active Dr. Alexandre Valles MD Attending Provider Active Chela Falk NP, PRESIDENT CEO [employer] FOUNDER-C Referring Provider Active Team Status: Active Member Role Status Dates Dr. Eduin Watts MD Primary Care Provider Active Chela Falk NP, PRESIDENT CEO [employer] FOUNDER-C Referring Provider, Other Provi michael Active Dr. Alexandre Valles MD Attending Provider Active Team Status: Inactive Member Role Status Dates Dr. Eduin Watts MD Primary Care Provider Active Chela Falk NP, PRESIDENT CEO [employer] FOUNDER-[employer] Attending Provider, Referring P carlie Active Team Status: Active Member Role Status Dates Dr. Eduin Watts MD Primary Care Provider Active Chela Falk NP, PRESIDENT CEO [employer] FOUNDER-[employer] Attending Provider Active Team Status: Inactive Member Role Status Dates Dr. Eduin Watts MD Primary Care Provi michael, Attending [...] Dr. Yolie Skinner MD Emergency Provider Active Sieve Repairer Relationship Specialty Start Date End Date Alvin Chi DO [address] [place] [id number] PCP - General 07/08/04 Team Status: Inactive [...] End: February 17, 2025 Carrillo Carreon NP, PRESIDENT CEO [employer] FOUNDER-C Attending Provider Active S tart: February 17, [...] 2025 End: February 17, 2025 Carrillo Carreon PRESIDENT CEO & FOUNDER, PRESIDENT CEO [employer] FOUNDER-C Attending Provider Active S tart: February 17, [...] or prosecute any alcohol or drug abuse patient.[facility] Reason for Visit (unrecogniz ed section and content) Reason Comments Ear Problem Bilat ear pain, bila t ears are impacted with wax x 1 week (unrecognized sect ion and content) No Status Records FoundNo Status Records Found INFORMATION SOURCE (unrecogn ized section and content) DATE CREATED AUTHOR 12/08/2024 [facility] DATE CREATED AUTHOR AUTHOR'S ORGANIZ ATION 03/28/2025 [facility] FOR RECORDS PERTAINING TO PATIENTS WHO ARE [...] BE BASED ON THE PRIMARY CLINICAL RECORDS. [facility]. provides no warranty or guarantee of the accuracy or completeness of information in this document.
--- NOTE | 2025-03-29 20:00 | EKG12_ITS ---
Test Reason : CP/SHOULDER PAIN Blood Pressure : */* mmHG Vent. Rate : 65 BPM Atrial Rate : 65 BPM P-R Int : 222 ms QRS Dur : 104 ms QT Int : 426 ms P-R-T Axes : 49 -52 62 degrees QTcB Int : 443 ms Sinus rhythm with 1st degree A-V block with occasional Premature ventricular complexes Pulmonary disease pattern Left anterior fascicular block Abnormal ECG Confirmed by CRISTINA MARIO MD ([id number]), graphics editor DARION FLORES ([id number]) on 03/31/2025 11:33:34 AM Referred By: Confirmed By: CRISTINA MARIO MD
[2025-03-29 20:49] LABS: Troponin T High Sens 2 HR 16 ng/L (<=22)
[2025-03-29] MEDS: buPROPion (XL) 300 MG TABLET.XL PO (22:00)
[2025-03-29] MEDS: APIXABAN 5 MG TABLET PO (22:00)
[2025-03-30 02:13] VITALS: BP 111/73; PULSE 58; RESP 18; TEMP 35.6; O2SAT 92
[2025-03-30] MEDS: 0.9% Saline Lock 10 ML Syringe IV (05:49)
[2025-03-30 06:41] LABS: Hematocrit 40.0 % (40-54); Hemoglobin 13.4 g/dL (13.0-16.5); Mean Corp Hgb Conc 33.5 g/dL (32-36); Mean Corpuscular Volume 93.7 fL (80-94); Mean Platelet Vol. 9.7 fl (6.2-12.0); Platelet Count 221 K/mm3 (150-450); RBC Distribution Width CV 13.7 % (11.6-14.6); RBC Distribution Width SD 46.7 fl (35.1-43.9); Red Blood Count 4.27 M/mm3 (4.6-6.2); White Blood Count 4.8 K/mm3 (4.4-11.0)
[2025-03-30 07:06] LABS: Cholesterol 158 mg/dL (<=200); Low Density Lipoprotein Calc. 96 mg/dL; Triglycerides 59 mg/dL; Very Low Density Lipoprotein 12 mg/dL (5-40); cholesterol:hdl ratio screen 3.17
[2025-03-30 07:12] LABS: Anion Gap 10 (5-15); BUN 26 mg/dL (4-19); BUN/Creat Ratio 21.0 RATIO (10-20); Calcium,Total 9.0 mg/dL (7.6-11.0); Carbon Dioxide 23.5 mmol/L (21.0-32.0); Chloride 107 mmol/L (98-108); Estimated Creatinine Clearance 71.70 ml/min (50-250); Glucose 88 mg/dL (70-99); Potassium 4.2 mmol/L (3.3-5.1)
--- NOTE | 2025-03-30 07:42 | PN.HOSP_ITS ---
Reason for Visit Reason for Visit: Diagnoses Orthostatic hypotension (03/29/25) Chest pain, unspecified (03/29/25) Subjective Subjective Feeling well. No chest pain. Objective Data Objective Data Vital Signs: Vital Signs Temp Pulse Resp BP Pulse Ox O2 Del Method 35.6 C L 58 L 18 111/73 92 Room Air 03/30/25 02:13 03/30/25 02:13 03/30/25 02:13 03/30/25 02:13 03/30/25 02:13 03/30/25 05:37 Oxygen Delivery Method Room Air Weight: 110.2 kg Body Mass Index (BMI) 35.9 Intake & Output: Intake and Output for Last 24 Hours 03/28/25 03/29/25 03/30/25 23:59 23:59 23:59 Intake Total 1000 / 1200 300 / 300 Balance 1000 / 1200 300 / 300 Lab / Micro Data 03/30/25 06:15 03/30/25 06:15 Labs: Laboratory Results - last 24 hr 03/29/25 17:38: WBC 6.8, RBC 4.55 L, Hgb 14.4, Hct 43.4, MCV 95.4 H, MCH 31.6, MCHC 33.2, RDW Std Deviation 47.0 H, RDW Coeff of Wenceslao 13.4, Plt Count 238, MPV 9.6, Immature Gran % (Auto) 0.300, Neut % (Auto) 77.2 H, Lymph % (Auto) 11.7 L, Hodgeman % (Auto) 8.9, Eos % (Auto) 1.2, Baso % (Auto) 0.7, Absolute Neuts (auto) 5.3, Absolute Lymphs (auto) 0.80 L, Nucleated RBC % 0, Sodium 137, Potassium 4.8, Chloride 102, Carbon Dioxide 21.7, Anion Gap 13, BUN 23 H, Creatinine 1.58 H, Estim Creat Clear Calc 57.93, Est GFR (MDRD) Non-Af 48 L, BUN/Creatinine Ratio 14.7, Glucose 94, Hemoglobin A1c 5.4, Calcium 9.7, Troponin T High Sens 19 03/29/25 19:57: Troponin T Hi Sens 2 Hr 16 03/30/25 06:15: WBC 4.8, RBC 4.27 L, Hgb 13.4, Hct 40.0, MCV 93.7, MCH 31.4, MCHC 33.5, RDW Std Deviation 46.7 H, RDW Coeff of Wenceslao 13.7, Plt Count 221, MPV 9.7, Sodium 140, Potassium 4.2, Chloride 107, Carbon Dioxide 23.5, Anion Gap 10, BUN 26 H, Creatinine 1.24 H, Estim Creat Clear Calc 71.70, Est GFR (MDRD) Non-Af 64, BUN/Creatinine Ratio 21.0 H, Glucose 88, Calcium 9.0, Triglycerides 59, Cholesterol 158, LDL Cholesterol, Calc 96, VLDL Cholesterol 12, HDL Cholesterol 50, Cholesterol/HDL Ratio 3.17 Radiography Diagnostic Testing: Radiology Impression Chest X-Ray 03/29/25 18:00 IMPRESSION: No acute cardiopulmonary abnormality. Reading Location: [id number] Physical Exam Const alert and no apparent distress Constitutional Narrative: Lying in bed. Nontoxic. No respiratory distress. No conversational dyspnea. Resp normal respiratory effort, no retractions, no use of accessory muscles and clear to auscultation bilaterally Cardio regular rate, regular rhythm, S1 normal heart sound and S2 normal heart sound GI normal to inspection, nondistended, normoactive bowel sounds, soft to palpation, non-tender and non-distended Extremity normal to inspection and full ROM Neuro Sensorium / Orientation: awake and alert Psych affect normal Assessment & Plan Assessment/Plan (1) Chest pain: PLAN: stress and echo ordered. Received ASA in ED. Troponin series negative (2) Orthostatic hypotension: PLAN: may be due to volume depletion. (3) CLARISSA (acute kidney injury): PLAN: improved w IVF. monitor. PLAN: Plan Chronic medical conditions: * Paroxysmal A-fib on Eliquis, history of DVT/PE, hypertension, hyperlipidemia? Follows with [facility], last office visit in February. In normal sinus rhythm on admit. Orthostatic hypotension noted as above. Continue home Eliquis and statin. Holding home BP medications as above. * Class II obesity: BMI 36 on admit. Complicates hospital course, care and prognosis. * Hypothyroidism: Recent TSH normal. Continue home Synthroid. * Mood disorder: Continue home escitalopram and bupropion. * Seizure disorder: Continue home oxcarbazepine. DVT prophylaxis: Not indicated, on Eliquis Charges/Coding Visit Charges Inpatient E&M: 54890 Subs Hosp L2
[2025-03-30 09:44] VITALS: BP 110/74; PULSE 62; RESP 18; TEMP 36.8; O2SAT 94
[2025-03-30] MEDS: APIXABAN 5 MG TABLET PO ×2 (09:48→21:05)
[2025-03-30 10:00] VITALS: O2SAT 95
[2025-03-30 16:57] VITALS: BP 114/81; PULSE 64; RESP 18; TEMP 36.7; O2SAT 99
[2025-03-30 21:00] VITALS: BP 114/74; PULSE 61; RESP 11; TEMP 36.2; O2SAT 98
[2025-03-30] MEDS: buPROPion (XL) 300 MG TABLET.XL PO (22:49)
[2025-03-31 03:00] VITALS: BP 131/82; PULSE 51; RESP 18; TEMP 36.8; O2SAT 92
[2025-03-31 05:01] LABS: Anion Gap 10 (5-15); BUN 23 mg/dL (4-19); BUN/Creat Ratio 21.5 RATIO (10-20); Calcium,Total 9.1 mg/dL (7.6-11.0); Carbon Dioxide 23.3 mmol/L (21.0-32.0); Chloride 106 mmol/L (98-108); Estimated Creatinine Clearance 84.67 ml/min (50-250); Glucose 85 mg/dL (70-99); Potassium 4.6 mmol/L (3.3-5.1)
--- NOTE | 2025-03-31 05:55 | EKG12_ITS ---
Test Reason : AM EKG Blood Pressure : */* mmHG Vent. Rate : 52 BPM Atrial Rate : 52 BPM P-R Int : 266 ms QRS Dur : 100 ms QT Int : 476 ms P-R-T Axes : 45 -49 105 degrees QTcB Int : 442 ms Sinus bradycardia with 1st degree A-V block Left anterior fascicular block Minimal voltage criteria for LVH, may be normal variant ( R in aVL ) Nonspecific ST and T wave abnormality Abnormal ECG When compared with ECG of 29-Mar-2025 20:01, MANUAL COMPARISON REQUIRED DATA IS UNCONFIRMED Confirmed by MD AUTUMN, RAFA ([id number]), commissioning editor DARION FLORES ([id number]) on 04/01/2025 10:56:19 AM Referred By: Confirmed By: RAFA LEYVA MD
[2025-03-31 08:07] VITALS: BP 122/81; PULSE 53; RESP 17; TEMP 36.5; O2SAT 98
--- NOTE | 2025-03-31 08:08 | PN.HOSP_ITS ---
Reason for Visit Chief Complaint: Chest pain Subjective Subjective Feeling well. No events Objective Data Objective Data Vital Signs: Vital Signs Temp Pulse Resp BP Pulse Ox O2 Del Method 36.5 C L 53 L 17 122/81 H 98 Room Air 03/31/25 08:07 03/31/25 08:07 03/31/25 08:07 03/31/25 08:07 03/31/25 08:07 03/31/25 08:07 Oxygen Delivery Method Room Air Weight: 110.2 kg Body Mass Index (BMI) 35.9 Intake & Output: Intake and Output for Last 24 Hours 03/29/25 03/30/25 03/31/25 23:59 23:59 23:59 Intake Total 1000 / 1200 400 / 640 240 / 240 Balance 1000 / 1200 400 / 640 240 / 240 Lab / Micro Data 03/30/25 06:15 03/31/25 03:33 Labs: Laboratory Results - last 24 hr 03/31/25 03:33: Sodium 139, Potassium 4.6, Chloride 106, Carbon Dioxide 23.3, Anion Gap 10, BUN 23 H, Creatinine 1.05, Estim Creat Clear Calc 84.67, Est GFR (MDRD) Non-Af 78, BUN/Creatinine Ratio 21.5 H, Glucose 85, Calcium 9.1 Physical Exam Const alert and no apparent distress HEENT head/scalp atraumatic and moist oral mucous membranes Resp normal respiratory effort, no retractions, no use of accessory muscles and clear to auscultation bilaterally Cardio regular rate, regular rhythm, S1 normal heart sound and S2 normal heart sound GI normal to inspection, nondistended, normoactive bowel sounds, soft to palpation, non-tender and non-distended Extremity normal to inspection and full ROM Neuro Sensorium / Orientation: awake and alert Assessment & Plan Assessment/Plan (1) Chest pain: PLAN: Stress and echocardiogram unremarkable. Troponin series negative (2) Orthostatic hypotension: PLAN: may be due to volume depletion. Would resume carvedilol but hold isosorbide and lisinopril upon discharge. (3) CLARISSA (acute kidney injury): PLAN: resolved w IVF. monitor. PLAN: Plan Chronic medical conditions: * Paroxysmal A-fib on Eliquis, history of DVT/PE, hypertension, hyperlipidemia? Follows with [facility], last office visit in February. In normal sinus rhythm on admit. Orthostatic hypotension noted as above. Continue home Eliquis and statin. Holding home BP medications as above. * Class II obesity: BMI 36 on admit. Complicates hospital course, care and prognosis. * Hypothyroidism: Recent TSH normal. Continue home Synthroid. * Mood disorder: Continue home escitalopram and bupropion. * Seizure disorder: Continue home oxcarbazepine. DVT prophylaxis: Not indicated, on Eliquis DC home
[2025-03-31] MEDS: 0.9% Saline Lock 10 ML Syringe IV (08:09)
--- NOTE | 2025-03-31 12:14 | CASEMGMT ---
Social Work SW met w/pt, reviewed prior level of function and anticpicipated discharge plan. Pt is observation so brief assessment completed. PCP: Dr. Watts Specialists: [facility] Pharmacy: [facility] in [place] Insurance/prescription coverage: [place] Medicare; Medicaid Living arrangements: Pt lives home alone, in July, had MS. Pt independent with all ADLs except driving. Pt has a cane and walker but does not use them. 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 Pt states he does fall at home however. Pt also states he is forgetful. He is able to take his medications properly however. Transportation: Friend Roberto helps pt w/transportation, pt does not drive and hasn't for 6 years due to a seizure disorder. LNOK: Pt has 5 children, reports a couple of them to be supportive. Pt also has a friend Roberto who helps him. LW/POA: Pt has not completed, may be interested in completed in the future. SW did give pt information and the documents, and gave him the number to the SW dept should he want to complete them in the future. SNF: No history DME: Cane and walker HHC: None, his had HHC and hospice Out pt PT: Pt has been to [facility] Plan: At discharge pt plans to return home. He does not anticipate any homegoing needs. Pt is not home bound so would not qualify for HHC. SDOH completed and MOW referral completed. SW remains available should any additional needs arise. TAYLOR Beltre
--- NOTE | 2025-03-31 12:30 | CASEMGMT ---
Met with patient to complete MALONEY form. MALONEY form and its content were verbally explained and patient's questions were answered to the best of my ability.? Patient voiced understanding and signed MALONEY form.? Patient provided a copy of signed MALONEY form and original placed in patient's chart.? Patient had no further questions. Kylee Mortensen, Discharge Planning Asst
--- NOTE | 2025-03-31 14:49 | STRESSREP ---
Stress Test Report Date: 03/31/2025 Procedure: Pharmacologic stress nuclear imaging study Indications: Chest pain Consent: Per the patient Procedure: The patient underwent pharmacologic (Regadenoson 0.4mg ) evaluation with a peak heart rate of 78 beats per minute (50%predicted maximal heart rate) and a peak blood pressure of 126/76 mmHg. The baseline ECG demonstrated sinus rhythm. The peak pharmacologic ECG did not show any ischemic changes. Occasional PVCs noted post pharmacologic infusion. There was no complaint of chest discomfort during pharmacologic infusion or recovery. The patient was injected with 14.2 millicuries of technetium 99m Cardiolite and subsequently rest SPECT Cardiolite nuclear imaging was obtained in the horizontal long, vertical long, and short axis views. The patient underwent pharmacologic (Regadenoson) evaluation. The patient was injected with 44.4 millicuries of technetium 99m Cardiolite and subsequently stress SPECT Cardiolite nuclear imaging was obtained in the horizontal long, vertical long, and short axis views. A gated Cardiolite study at peak stress was obtained. The examination was stopped secondary to completion of protocol. Rest and stress SPECT Cardiolite nuclear imaging status post realignment, normalization, and attenuation correction demonstrate a small fixed perfusion defect of the inferior wall of moderate intensity. This could represent diaphragmatic attenuation versus previous nontransmural infarct. No reversible ischemia is noted. Gated Cardiolite study reveals mild inferior hypokinesis. The reported LVEF is 55%. Impression: 1. Pharmacologic (Regadenoson) evaluation 2. Peak pharmacologic ECG with no diagnostic ischemic changes. 3. Occasional PVC noted in recovery. 5. Fixed inferior wall defect, likely attenuation artifact however previous nontransmural infarct cannot be excluded. No reversible ischemia. 6. The gated Cardiolite study reports an LVEF of 55%. This note was generated with [employer] software. It may contain incorrect words, spelling, and punctuation that were not noted in checking the note before signing.
[2025-03-31 15:23] VITALS: BP 132/82; PULSE 62; RESP 17; TEMP 36.6; O2SAT 94
--- NOTE | 2025-03-31 15:33 | DS.PCM_ITS ---
Providers Date of Admission: 03/29/25 Primary Care Physician: Dr. Eduin Watts MD Reason For Visit: CHEST PAIN WITH ORTHOSTATIC HOTN Diagnosis Discharge Diagnosis (1) Chest pain: Status: Acute Code(s): R07.9 - Chest pain, unspecified Plan: Stress and echocardiogram unremarkable. Troponin series negative (2) Orthostatic hypotension: Status: Acute Code(s): I95.1 - Orthostatic hypotension Plan: may be due to volume depletion. Would resume carvedilol but hold isosorbide and lisinopril upon discharge. (3) CLARISSA (acute kidney injury): Status: Acute Code(s): N17.9 - Acute kidney failure, unspecified Plan: resolved w IVF. monitor. Plan Chronic medical conditions: * Paroxysmal A-fib on Eliquis, history of DVT/PE, hypertension, hyperlipidemia? Follows with [facility], last office visit in February. In normal sinus rhythm on admit. Orthostatic hypotension noted as above. Continue home Eliquis and statin. Holding home BP medications as above. * Class II obesity: BMI 36 on admit. Complicates hospital course, care and prognosis. * Hypothyroidism: Recent TSH normal. Continue home Synthroid. * Mood disorder: Continue home escitalopram and bupropion. * Seizure disorder: Continue home oxcarbazepine. DVT prophylaxis: Not indicated, on Eliquis DC home Medications at Discharge Home Medications nitroglycerin 0.4 mg sublingual tablet 0.4 mg sublingual Q5-15M PRN Chest Pain 09/28/20 oxcarbazepine 150 mg tablet 150 mg PO BID convulsions #60 tabs 09/29/20 oxcarbazepine 300 mg tablet 300 mg PO BID convulsions 05/05/21 atorvastatin 40 mg tablet 40 mg PO DAILY cholesterol 03/25/24 carvedilol 3.125 mg tablet 3.125 mg PO BID heart #180 TABLETS 07/05/24 apixaban 5 mg tablet (Eliquis) 5 mg PO BID blood thinner 03/29/25 bupropion HCl 300 mg 24 hr tablet, extended release 300 mg PO DAILY depression 03/29/25 escitalopram oxalate 20 mg tablet 20 mg PO DAILY PTSD 03/29/25 levothyroxine 75 mcg tablet 75 mcg PO DAILY thyroid 03/29/25 food supplemt, lactose-reduced 0.08 gram-1.5 kcal/mL oral liquid (Ensure Plus High Protein) 120 ml PO TIDCM #30 mL 03/31/25 Hospital Course Operations None Procedures 2-D Echocardiogram and Stress test Summary of Care Provided Minutes Spent on Discharge: 32 Hospital Course: Patient presented with orthostatic hypotension. Patient was dehydrated did receive IV fluids and kidney function did improve. Blood pressure did remain improved as well. Patient will be discharged with changes to his medications with resumption of his carvedilol but holding on his isosorbide and lisinopril for now. He did have chest pain but did have a stress test and echocardiogram that were unremarkable. Weight / BMI Weight Weight: 110.2 kg Body Mass Index (BMI) 35.9 ABG / Lab / Microbiology Data 03/30/25 06:15 03/31/25 03:33 Laboratory: Laboratory Results - last 24 hr 03/31/25 03:33: Sodium 139, Potassium 4.6, Chloride 106, Carbon Dioxide 23.3, Anion Gap 10, BUN 23 H, Creatinine 1.05, Estim Creat Clear Calc 84.67, Est GFR (MDRD) Non-Af 78, BUN/Creatinine Ratio 21.5 H, Glucose 85, Calcium 9.1 Radiography Diagnostic Testing: Radiology Impression Echocardiogram 03/29/25 19:38 Interpretation Summary Mild concentric left ventricular hypertrophy. Mild apical hypokinesis. Estimated LVEF 60%. Stage I diastolic dysfunction. The left atrium is mildly enlarged. Mild (1+) mitral valve insufficiency. Mild (1+) aortic valve insufficiency. Ordering Physician: Froilan iMms Performed By: Laura James RDCS D/C Instructions DC O2, CPAP, BIPAP Needs Home O2 Discharge instructions: No Meaningful Use Info Meaningful Use Meaningful Use Diagnoses (Choose all that apply): None applicable Discharge Plan Admission Admit Date/Time: 03/29/25 19:32 Primary Reason for Your Visit: Chest pain Attending Provider: Miguel Angel Juarez Primary Care Provider: Eduin Watts Consulting Providers: Froilan Mims Instructions Additional Instructions / Restrictions: Your blood pressure dropped when you stood up and part of that was related to dehydration and also noncompliant with your medications. 3 medications will be discontinued including isosorbide and lisinopril. You did have chest pain but your workup including stress test and ultrasound of your heart (echocardiogram) was unremarkable. Discharge Orders/Prescriptions Prescriptions: New Ensure Plus High Protein 0.08 gram-1.5 kcal/mL Liquid 120 ml PO TIDCM Qty: 30 0RF Continued nitroglycerin 0.4 mg tablet, sublingual 0.4 mg SUBLINGUAL Q5-15M PRN (Reason: Chest Pain) Rx Instructions: do not exceed 3 doses per episode oxcarbazepine 150 mg tablet 150 mg PO BID Qty: 60 3RF oxcarbazepine 300 mg tablet 300 mg PO BID atorvastatin 40 mg tablet 40 mg PO DAILY levothyroxine 75 mcg tablet 75 mcg PO DAILY escitalopram oxalate 20 mg tablet 20 mg PO DAILY bupropion HCl 300 mg tablet extended release 24 hr 300 mg PO DAILY Eliquis 5 mg tablet 5 mg PO BID carvedilol 3.125 mg tablet 3.125 mg PO BID Qty: 180 3RF Discontinued meloxicam 15 mg tablet 15 mg PO DAILY isosorbide mononitrate 30 mg tablet extended release 24 hr 30 mg PO BID Qty: 180 3RF lisinopril 10 mg tablet 5 mg PO DAILY Qty: 45 3RF Referrals / Follow Up: Eduin Watts MD [Primary Care Provider] - Within 2 Weeks Disposition Disposition (needs filled in before D/C Order can be placed): Home, Self Care Charges/Coding Visit Charges Inpatient E&M: 45595 Disch Hosp >30min
== END 2025-03-31 15:36 | disposition home or self-care (01) ==
LOC: ED 18:54 → PCU 19:52
PROVIDERS: Physician Assistant; Admitting Provider Hospitalist; Emergency Provider Emergency Medicine; PCP Family Medicine
DX: R07.89 Other chest pain (principal); I50.22 Chronic systolic (congestive) heart failure; I11.0 Hypertensive heart disease with heart failure; J44.9 Chronic obstructive pulmonary disease, unspecified; G40.909 Epilepsy, unspecified, not intractable, without status epilepticus; E11.40 Type 2 diabetes mellitus with diabetic neuropathy, unspecified; I95.1 Orthostatic hypotension; E86.0 Dehydration; Z86.718 Personal history of other venous thrombosis and embolism; E66.812 Obesity, class 2; Z79.01 Long term (current) use of anticoagulants; E78.5 Hyperlipidemia, unspecified; Z79.890 Hormone replacement therapy; Z79.899 Other long term (current) drug therapy; E03.9 Hypothyroidism, unspecified; Z68.36 Body mass index [BMI] 36.0-36.9, adult; F39 Unspecified mood [affective] disorder; G89.4 Chronic pain syndrome; Z98.84 Bariatric surgery status; N17.9 Acute kidney failure, unspecified
CPT/HCPCS: 36415; 71046; 78452; 80048; 80061; 83036; 84484; 85025; 85027; 93005; 93017; 93306; 94668; 96360; 97802; 99221; 99252; 99285; 99406; A9500; A4216; G0378; G0463

== ENCOUNTER → 2025-04-01 | Outpatient (CLI) | payer MEDICARE, MEDICAID, SELFPAY | END | disposition home or self-care (01) | LOC: CVS 07-30 11:57 | PROVIDERS: PCP Family Medicine; Referring Provider Family Medicine; Visit Provider Family Medicine | DX: R03.0 Elevated blood-pressure reading, without diagnosis of hypertension (principal); R42 Dizziness and giddiness; Z68.39 Body mass index [BMI] 39.0-39.9, adult | CPT/HCPCS: A4216; J2785 ==

== ENCOUNTER → 2025-07-02 | Outpatient (CLI) | payer MEDICARE, MEDICAID, SELFPAY ==
[2025-07-02 15:41] LABS: Anion Gap 9 (5-15); BUN 15 mg/dL (4-19); BUN/Creat Ratio 15.3 RATIO (10-20); Calcium,Total 9.4 mg/dL (7.6-11.0); Carbon Dioxide 25.4 mmol/L (21.0-32.0); Chloride 101 mmol/L (98-108); Cholesterol 179 mg/dL (<=200); Free T3 2.2 pg/mL (2.18-3.98); Glucose 93 mg/dL (70-99); Low Density Lipoprotein Calc. 107 mg/dL; Potassium 4.8 mmol/L (3.3-5.1); Triglycerides 49 mg/dL; Very Low Density Lipoprotein 10 mg/dL (5-40); cholesterol:hdl ratio screen 2.90
== END | disposition home or self-care (01) ==
LOC: MFPLAB 11:20
PROVIDERS: PCP Family Medicine; Visit Provider Family Medicine
DX: I10 Essential (primary) hypertension (principal); E03.9 Hypothyroidism, unspecified; E78.5 Hyperlipidemia, unspecified
CPT/HCPCS: 36415; 80048; 80061; 84439; 84443; 84481

== ENCOUNTER 2025-07-03 14:44 | Emergency (ER) | payer MEDICARE, MEDICAID, SELFPAY ==
[2025-07-03 14:45] VITALS: BP 117/100; PULSE 79; RESP 17; TEMP 36.1; O2SAT 99; BMI 37.0
--- NOTE | 2025-07-03 14:59 | CT_ITS ---
PROCEDURE: BRAIN/HEAD WITHOUT CONTRAST 07/03/2025 REASON FOR EXAM: FALL TECHNIQUE: Procedure Code: CTBR Modality: CT Procedure: BRAIN/HEAD WITHOUT CONTRAST Coronal and Sagittal reconstruction series were provided. One or more dose reduction techniques were used (e.g., Automated exposure control, adjustment of the mA and/or kV according to patient size, use of iterative reconstruction technique. RADIATION DOSE SUMMARY: CTDlvol: <50 mGy DLP: <1000 mGycm COMPARISON: None FINDINGS: Brain: There is no evidence of hemorrhage, acute ischemia or mass. No extra- axial fluid collection, midline shift or mass effect. CSF Spaces: Mild generalized cerebral atrophy Sinuses/Mastoids: Clear Bones: No fracture CT/Brain/Head without Contrast IMPRESSION: No acute intracranial process Reading Location: [id number]
--- NOTE | 2025-07-03 14:59 | CT_ITS ---
PROCEDURE: SPINE CERVICAL WITHOUT CONTRAS 07/03/2025 REASON FOR EXAM: FALL TECHNIQUE: Procedure Code: CTSPC Modality: CT Procedure: SPINE CERVICAL WITHOUT CONTRAS Coronal and Sagittal reconstruction series were provided. One or more dose reduction techniques were used (e.g., Automated exposure control, adjustment of the mA and/or kV according to patient size, use of iterative reconstruction technique. RADIATION DOSE SUMMARY: CTDlvol: 28 mGy DLP: 613 mGycm COMPARISON: None FINDINGS: Alignment: Straightening of the normal cervical lordosis. Vertebrae: No fracture. Disc space narrowing, mild marginal spurring C2/3, C4/5, C5/6, C6/7 and C7/T1. Mild uncinate spurring is shown at those levels as well. Degenerative changes between the anterior arch of C1 and the dens of C2. Soft Tissues: No mass or lymphadenopathy. CT/Spine Cervical without Contras IMPRESSION: No fracture. Straightening of the normal cervical lordosis. Consider spasm. Degenerative changes. Reading Location: [id number]
--- NOTE | 2025-07-03 15:01 | ED.VIS.FALL ---
HPI HPI - Fall History of Present Illness Chief Complaint: Fall Detail of Chief Complaint: Fall Informant: patient Narrative Narrative: Patient presents to the emergency department after a fall today. He states that he stood on his mower deck and turned and thinks he caught his left foot on something causing him to fall onto the ground. He was about 2 feet up off the ground. He did hit his head but does not think he lost consciousness. He is on Eliquis. He states he tried to grab something on the way down he thinks it was an antenna that he had that broke and that he continued down to the ground. He sustained a laceration to his left elbow. Unsure of his last tetanus shot. He was ambulatory afterwards. Patient has been having some neck pain for about 2 weeks but no increase in pain since the fall. He has had prior neck surgery. Complains of some pain to his right lower ribs that he rates a 2 or 3 out of 10. [facility] Medical History (Updated 07/03/25 @ 16:[address] Spencer Aguilar, DO) Chronic anticoagulation DM type 2 (diabetes mellitus, type 2) JOVEL (dyspnea on exertion) Hyperlipidemia Essential (primary) hypertension History of colon cancer Arthritis AA (alcohol abuse) Morbid obesity COPD (chronic obstructive pulmonary disease) History of suicide attempt History of DVT (deep vein thrombosis) Migraine headache Seizure disorder Neuropathy H/O: substance abuse History of ETOH abuse Necrotizing soft tissue infection Abscess of right leg Dog bite of right calf Post traumatic stress disorder (PTSD) Bronchial asthma Personal hx-rectal/anal malignancy Esophageal reflux Epilepsy undetermined as to focal or generalized, intractable Chronic pain syndrome Home Medications ?Medication ?Instructions ?Recorded ?Last Taken ?Type nitroglycerin 0.4 mg sublingual 0.4 mg sublingual Q5-15M PRN Chest 09/28/20 Unknown History tablet Pain oxcarbazepine 150 mg tablet 150 mg PO BID convulsions #60 tabs 09/29/20 03/29/25 Rx oxcarbazepine 300 mg tablet 300 mg PO BID convulsions 05/05/21 03/29/25 History atorvastatin 40 mg tablet 40 mg PO DAILY cholesterol 03/25/24 03/28/25 History apixaban 5 mg tablet (Eliquis) 5 mg PO BID blood thinner 03/29/25 03/29/25 History bupropion HCl 300 mg 24 hr tablet, 300 mg PO DAILY depression 03/29/25 03/28/25 History extended release escitalopram oxalate 20 mg tablet 20 mg PO DAILY PTSD 03/29/25 03/28/25 History levothyroxine 75 mcg tablet 75 mcg PO DAILY thyroid 03/29/25 03/28/25 History food supplemt, lactose-reduced 120 ml PO TIDCM #30 mL 03/31/25 Unknown Rx 0.08 gram-1.5 kcal/mL oral liquid (Ensure Plus High Protein) carvedilol 3.125 mg tablet 3.125 mg PO BID heart #180 TABLETS 05/09/25 Unknown Rx hydrocodone-acetaminophen 5-325mg 1 tab PO Q4H PRN PRN Pain 2 days 07/03/25 Unknown Rx 5mg-325mg #10 TABLETS Allergy/AdvReac Type Severity Reaction Status Date / Time meperidine HCl (From Demerol) Allergy Unknown Verified 07/03/25 14:48 Milk Containing Products Allergy Anaphylaxis Verified 07/03/25 14:48 (Dairy) (Milk Containing Products) penicillin G Allergy Hives Verified 07/03/25 14:48 wheat Allergy Other Verified 07/03/25 14:48 potassium AdvReac Other Verified 07/03/25 14:48 Surgical History History of left heart catheterization (03/1997) History of cervical spinal surgery History of bariatric surgery (2000) Social History Smoking Status: Never smoker Electronic Cigarette Use: not used alcohol intake: former year quit: 1999 substance use type: former substance user Date of last use: 20 years, Fentynal 4 years, crack/cocaine, heroin, painkillers and other details: LSD ROS ROS ED Review of Systems ROS Unobtainable: other Constitutional Constitutional ED: Reports lethargy; Denies chills, fever(s), sweats or weight loss Eyes Eyes: Denies blurry vision, change in vision or diplopia ENT ENT ED: Denies rhinorrhea or sore throat Cardiovascular Cardiovascular: Denies chest pain, orthopnea or racing heartbeat Respiratory/Chest Respiratory/Chest: Denies cough, dyspnea, dyspnea on exertion, orthopnea or sputum Gastrointestinal Gastrointestinal: Denies abdominal pain, diarrhea, nausea or vomiting Genitourinary Genitourinary ED: Denies dysuria, hematuria or urinary frequency Musculoskeletal Musculoskeletal: Reports other Details: Right rib pain ; Denies arthralgias, back pain, myalgias or neck pain Integumentary Reports other Details: Laceration left elbow ; Denies abscess, Abrasions or rash Neurologic Neurologic: Reports headache(s); Denies weakness Psychiatric Psychiatric: Denies anxiety, depression or suicidal thoughts Endocrine Endocrinology: Denies polydipsia, polyphagia or polyuria Hematologic/Lymphatic Hematologic/Lymphatic: Denies easy bleeding, easy bruising or lymphadenopathy Allergic/Immunologic Allergic/Immunologic ED: Denies mouth swelling, tongue swelling or urticaria EXAM Physical Exam Const Vital Signs: 07/03/25 14:45 07/03/25 15:02 Temperature 96.9 F L Temperature Source Temporal Pulse Rate 79 Respiratory Rate 17 Respiratory Effort Normal Respiratory Depth Normal Respiratory Pattern Normal Blood Pressure 117/100 H Blood Pressure Mean 105 Pulse Ox 99 Oxygen Delivery Method Room Air Room Air Positive well nourished and well developed General Appearance ED: well developed and NAD HEENT Reports TM's clear and moist mucous membranes normocephalic and atraumatic; Negative for trauma or tenderness Tympanic Membrane ED: Yes TM's clear Eyes PERRL and EOMs intact bilaterally General Eye ED: Negative for pale conjunctiva or scleral icterus Neck no lymphadenopathy, supple and no JVD Neck Narrative: Mild diffuse tenderness. No bony step-offs or depressions. Good range of motion. General: Negative for tenderness Chest Wall inspection of chest normal Chest Narrative: Mild tenderness over the right lower anterior and mid axillary chest wall. No ecchymosis or bruising. No crepitus or subcu for Zima. Chest: Negative for tenderness Resp normal respiratory effort and clear to auscultation bilaterally Effort and Inspection: Negative for respiratory distress or pain with movement Auscultation: Negative for rhonchi, wheezes or diminished lung sounds Cardio regular rate, regular rhythm, S1 normal heart sound, S2 normal heart sound and no murmurs Peripheral Pulses: pulses 2+ throughout GI normal to inspection, nondistended, normoactive bowel sounds, soft to palpation, non-tender, non-distended and no masses Back/Spine no CVA tenderness and no thoracic nor lumbar tenderness Extremity normal to inspection Extremity Narrative: Mild diffuse tenderness about the left elbow. No obvious deformity. Good range of motion flexion extension as well as with pronation and supination. General Extremety ED: Negative for edema General Extremity: Negative for edema Neuro oriented x3, CN's II-XII intact bilaterally, no sensory deficits noted and gait normal Sensorium / Orientation: awake, alert, oriented to person, oriented to place and oriented to time Motor Exam: strength 5/5 throughout and strength abnormal Psych mental status grossly normal Skin no rashes or lesions noted Skin Narrative: Patient has a 5 cm flap-like laceration to the posterior medial forearm just medial to the elbow. No active bleeding currently. Neurovascular intact distally MDM MDM MDM Narrative Medical decision making narrative: Patient presents after mechanical fall with laceration to his left elbow and head injury and is on Eliquis. CT scan of the brain without contrast showed no acute traumatic injury. Patient also had CT C-spine which did not show any fractures. X-rays of the left elbow obtained showed no fractures. Patient also had a chest x-ray that did not show any obvious rib fractures or pneumothorax. Laceration repair of the left elbow was undertaken please see procedure note. Clean dressing applied. Patient advised to follow-up with primary care physician in 10 days for suture removal. I will write him a prescription for a few [place] for pain in his chest wall secondary to the fall. Radiography Diagnostic Testing: Clinical Impression(s) from Imaging Studies Brain CT 07/03/25 14:59 IMPRESSION: No acute intracranial process Reading Location: [facility] Cervical Spine CT 07/03/25 14:59 IMPRESSION: No fracture. Straightening of the normal cervical lordosis. Consider spasm. Degenerative changes. Reading Location: [facility] Elbow X-Ray 07/03/25 15:40 IMPRESSION: No left elbow joint effusion is seen. Minimal degenerative changes are seen of the humeroulnar articulation, most prominent medially. No fracture or dislocation is seen. If clinical concern persists, short-term follow-up imaging may be obtained to rule out a currently occult fracture. Reading Location: [address] Chest X-Ray 07/03/25 15:44 IMPRESSION: No fracture is seen. If clinical concern persists, short-term follow-up imaging may be obtained to rule out a currently occult fracture.. No interval osseous changes noted. No pleural effusion or pneumothorax is noted. Lungs appear clear of acute disease. The cardiomediastinal silhouette is stable, with a tortuous aorta noted. No evidence of cardiomegaly. Reading Location: [address] 1 view chest x-ray obtained interpreted by myself as no obvious rib fractures or pneumothorax or acute process. Radiology in agreement. Three-view x-rays of the left elbow obtained interpreted by myself as no evidence of fracture or dislocation or evidence of foreign body. Radiology in agreement. Procedures Lacerations Left elbow laceration: Length: 1.97 in Depth: Sub Q Shape: Flap Prep: Sterile Conditions and Shure-Clens Laceration repair: Irrigated, Lidocaine, Local, Skin sutures and Wound explored Irrigated (ml): 50 Number of Sutures/Davon: 9 Suture Information: Ethilon, Simple and 4-0 Discharge Plan Triage Chief Complaint: Fall ED Provider: Spencer Aguilar Dx/Rx/DC Orders Clinical Impression: Fall, Laceration of elbow, Closed head injury, Chest wall contusion Instructions: ED Chest Wall Contusion, ED Head Injury (Adult), ED Laceration Extremity Prescriptions: New hydrocodone-acetaminophen 5-325 mg tablet 1 tab PO Q4H PRN PRN (Reason: Pain) 2 Days Qty: 10 0RF No Action nitroglycerin 0.4 mg tablet, sublingual 0.4 mg SUBLINGUAL Q5-15M PRN (Reason: Chest Pain) Rx Instructions: do not exceed 3 doses per episode oxcarbazepine 150 mg tablet 150 mg PO BID Qty: 60 3RF oxcarbazepine 300 mg tablet 300 mg PO BID atorvastatin 40 mg tablet 40 mg PO DAILY levothyroxine 75 mcg tablet 75 mcg PO DAILY escitalopram oxalate 20 mg tablet 20 mg PO DAILY bupropion HCl 300 mg tablet extended release 24 hr 300 mg PO DAILY Eliquis 5 mg tablet 5 mg PO BID Ensure Plus High Protein 0.08 gram-1.5 kcal/mL Liquid 120 ml PO TIDCM Qty: 30 0RF carvedilol 3.125 mg tablet 3.125 mg PO BID Qty: 180 3RF Primary Care Provider: Eduin Watts Referrals: Eduin Watts MD [Primary Care Provider, Family Practice] - 10 Day for suture removal Print Language: Omani Disposition Disposition: Home, Self Care
[2025-07-03] MEDS: Lidocaine 1% (20 ml mdv) 20 ML Vial 10 ML INFILT (15:16)
--- NOTE | 2025-07-03 15:40 | RAD_ITS ---
PROCEDURE: ELBOW MIN 3 VIEWS 07/03/2025 REASON FOR EXAM: FALL TECHNIQUE: Procedure Code: RADEL Modality: DX Procedure: ELBOW MIN 3 VIEWS Laterality: Left COMPARISON: None. RAD/Elbow min 3 Views IMPRESSION: No left elbow joint effusion is seen. Minimal degenerative changes are seen of the humeroulnar articulation, most pro minent medially. No fracture or dislocation is seen. If clinical concern persists, short-term follow-up imaging may be obtained to r ule out a currently occult fracture. Reading Location: [id number]
--- NOTE | 2025-07-03 15:44 | RAD_ITS ---
PROCEDURE: CHEST 1 VIEW (PORTABLE) 07/03/2025 REASON FOR EXAM: FALL TECHNIQUE: Frontal view of the chest. COMPARISON: PA and lateral chest of 03/29/2025. RAD/Chest 1 View (Portable) IMPRESSION: No fracture is seen. If clinical concern persists, short-term follow-up imaging may be obtained to r ule out a currently occult fracture.. No interval osseous changes noted. No pleural effusion or pneumothorax is noted. Lungs appear clear of acute disease. The cardiomediastinal silhouette is stable, with a tortuous aorta noted. No ev idence of cardiomegaly. Reading Location: [id number]
[2025-07-03 16:38] VITALS: BP 125/84; PULSE 67; RESP 16; TEMP 36.6; O2SAT 98
== END 2025-07-03 16:39 | disposition home or self-care (01) ==
PROVIDERS: Emergency Provider Emergency Medicine; PCP Family Medicine; Visit Provider Emergency Medicine
DX: S51.012A Laceration without foreign body of left elbow, initial encounter (principal); G40.909 Epilepsy, unspecified, not intractable, without status epilepticus; E11.40 Type 2 diabetes mellitus with diabetic neuropathy, unspecified; S09.90XA Unspecified injury of head, initial encounter; S20.211A Contusion of right front wall of thorax, initial encounter; W01.0XXA Fall on same level from slipping, tripping and stumbling without subsequent striking against object, initial encounter; Z23 Encounter for immunization; I10 Essential (primary) hypertension; E78.5 Hyperlipidemia, unspecified; K21.9 Gastro-esophageal reflux disease without esophagitis; F43.10 Post-traumatic stress disorder, unspecified; Z79.01 Long term (current) use of anticoagulants; Z86.718 Personal history of other venous thrombosis and embolism; Z79.899 Other long term (current) drug therapy
CPT/HCPCS: 12002; 70450; 71045; 72125; 73080; 90471; 90715; 99284